=== PATIENT | male | born 1945 | race Caucasian/White ===

== ENCOUNTER 2017-05-07 15:19 | Emergency (ER) | payer MEDICARE, BC ==
[2017-05-07 15:35] VITALS: TEMP 98
--- NOTE | 2017-05-07 15:57 | ED ---
General Adult HPI - General Chief complaint: Wound/Laceration Stated complaint: knee incision opened up Time Seen by Provider: 05/07/17 15:37 Source: patient, RN notes reviewed Mode of arrival: ambulatory Limitations: no limitations - History of Present Illness Initial comments: Patient 71-year-old male who presents emergency room today with chief complaint of wanting wound recheck. He does admit that he had a cut to the right anterior aspect of the knee that happened on the April. He states it occurred when he was trying to hang knife on the wall drop down causes laceration to the anterior knee. He does admit that [place]. He states the sutures were in for 11 days and he went to his family doctor yesterday had them removed. He states he had a few Steri-Strips placed over top one of the laceration sites most proximal. He states that the distal site began bleeding on him yesterday. He does admit that he used some Steri-Strips that he had at home to pull the wound together. He states he was concerned and thought he should have it checked today. His family doctor was not open so he came here to the emergency room. Patient states is not on any blood thinner. Patient denies any recent fever, chills, shortness of breath, chest pain, back pain, abdominal pain, nausea or vomiting, numbness or tingling, dysuria or hematuria, constipation or diarrhea, headaches or visual changes, or any other complaints. - Related Data Allergies Allergy/AdvReac Type Severity Reaction Status Date / Time No Known Allergies Allergy Verified 05/07/17 15:35 Review of Systems ROS Statement: Those systems with pertinent positive or pertinent negative responses have been documented in the HPI. ROS Other: All systems not noted in ROS Statement are negative. Past Medical History Past Medical History: No Reported History History of Any Multi-Drug Resistant Organisms: None Reported Past Surgical History: Back Surgery, Joint Replacement, Orthopedic Surgery Additional Past Surgical History / Comment(s): rt hand,lt hip Past Psychological History: No Psychological Hx Reported Smoking Status: Never smoker Past Alcohol Use History: None Reported Past Drug Use History: None Reported General Exam - General Exam Comments Initial Comments: General: The patient is awake and alert, in no distress, and does not appear acutely ill. Eye: Pupils are equal, round and reactive to light, extra-ocular movements are intact. No nystagmus. There is normal conjunctiva bilaterally. No signs of icterus. Ears, nose, mouth and throat: There are moist mucous membranes and no oral lesions. Neck: The neck is supple, there is no tenderness or JVD. Cardiovascular: There is a regular rate and rhythm. No murmur, rub or gallop is appreciated. Respiratory: Lungs are clear to auscultation, respirations are non-labored, breath sounds are equal. No wheezes, stridor, rales, or rhonchi. Musculoskeletal: Normal ROM, no tenderness. Strength 5/5. Sensation intact. Pulses equal bilaterally 2+. Neurological: A&O x 3. CN II-XII intact, There are no obvious motor or sensory deficits. Coordination appears grossly intact. Speech is normal. Skin: Patient does have laceration to the anterior aspect of the right knee. There is the distal wound measured approximately 2.5-3 cm in total length that is slightly dehisced and opened up. No active bleeding currently. Psychiatric: Cooperative, appropriate mood & affect, normal judgment. Limitations: no limitations Course Vital Signs 05/07/17 15:31 Temperature 98.0 F Pulse Rate 63 Respiratory 20 Rate Blood Pressure 132/63 O2 Sat by Pulse 99 Oximetry Medical Decision Making - Medical Decision Making Patient's left knee was cleaned here in emergency room and Steri-Strips placed by nursing staff. Patient advised to use Jez wrap over top the knee when he is currently being up and moving around to help decrease his range of motion so that there is less tension on the laceration site. Is advised to the Steri- Strips in place until they fall off on their own over the next 5 days. Advised that they need to replace Steri-Strips at that time for further strength to the wound as it continues to heal. Advised to watch for any signs of infection return here to the emergency room or follow-up family doctor for any concerns. He states understanding and is in agreement. Disposition Clinical Impression: Laceration Disposition: HOME SELF-CARE Condition: Good Instructions: Laceration (ED) Additional Instructions: Please continue to use Jez wrap on up and moving around for decreased range of motion as discussed. Please replace Steri-Strips from the fall off for further strength and allowing the wound to heal. Please follow-up with family doctor in the next 2 days of symptoms have not improved. Please return to emergency room if the symptoms increase or worsen or for any other concerns. Referrals: Mago Reeder DO [Primary Care Provider] - 1-2 days Time of Disposition: 15:55
[2017-05-07 16:24] VITALS: BP 130/78; PULSE 87; RESP 18
== END 2017-05-07 16:20 | disposition home or self-care (01) ==
LOC: EC 15:19
DX: T81.33XA Disruption of traumatic injury wound repair, initial encounter (principal)
CPT/HCPCS: 99282

== ENCOUNTER 2018-01-29 13:07 | Inpatient (IN) | payer BC, MEDICARE ==
--- NOTE | 2018-01-29 13:51 | ED ---
General Adult HPI - General Chief complaint: Shortness of Breath Stated complaint: SOB Time Seen by Provider: 01/29/18 13:10 Source: patient, family, RN notes reviewed Mode of arrival: wheelchair Limitations: no limitations - History of Present Illness Initial comments: This is a 9-year-old male with past medical history significant for COPD high blood pressure and high cholesterol. Patient comes in today because he has been noting that he has been more short of breath particularly with any exertion. Patient states he cannot even walk on the driveway to get into his car. Patient denies any chest pain or palpitations. Patient did note over a month ago he started having an increase in his gastric reflux however. Patient denies any recent fever chills or significant cough. Patient denies any lightheadedness dizziness or near syncopal episode. Patient denies headache patient denies numbness weakness. Patient denies abdominal pain patient denies nausea vomiting diarrhea. Patient may concern is a shortness of breath in the increased with exertion. - Related Data Home Medications Medication Instructions Recorded Confirmed Allopurinol [Zyloprim] 300 mg PO DAILY 01/29/18 01/29/18 Ipratropium/Albuterol Sulfate 1 puff INHALATION RT-QID 01/29/18 01/29/18 [Combivent Respimat Inhaler] Metoprolol Tartrate [Lopressor] 50 mg PO DAILY 01/29/18 01/29/18 Omeprazole [Omeprazole] 20 mg PO DAILY 01/29/18 01/29/18 Simvastatin [Zocor] 20 mg PO HS 01/29/18 01/29/18 Allergies Allergy/AdvReac Type Severity Reaction Status Date / Time No Known Allergies Allergy Verified 01/29/18 14:14 Review of Systems ROS Statement: Those systems with pertinent positive or pertinent negative responses have been documented in the HPI. ROS Other: All systems not noted in ROS Statement are negative. Past Medical History Past Medical History: No Reported History, COPD, GERD/Reflux, Hyperlipidemia, Hypertension Additional Past Medical History / Comment(s): gout History of Any Multi-Drug Resistant Organisms: None Reported Past Surgical History: Back Surgery, Joint Replacement, Orthopedic Surgery Additional Past Surgical History / Comment(s): rt hand,lt hip Past Psychological History: No Psychological Hx Reported Smoking Status: Never smoker Past Alcohol Use History: None Reported Past Drug Use History: None Reported General Exam - General Exam Comments Initial Comments: GENERAL: Patient is well-developed and well-nourished. Patient is nontoxic and well- hydrated and is in mild distress. ENT: Neck is soft and supple. No significant lymphadenopathy is noted. Oropharynx is clear. Moist mucous membranes. Neck has full range of motion without eliciting any pain. EYES: The sclera were anicteric and conjunctiva were pink and moist. Extraocular movements were intact and pupils were equal round and reactive to light. Eyelids were unremarkable. PULMONARY: Unlabored respirations. Good breath sounds bilaterally. No audible rales rhonchi or wheezing was noted. CARDIOVASCULAR: There is a regular rate and rhythm without any murmurs gallops or rubs. Patient has occasional extrasystole. ABDOMEN: Soft and nontender with normal bowel sounds. No palpable organomegaly was noted. There is no palpable pulsatile mass. SKIN: Skin is clear with no lesions or rashes and otherwise unremarkable. NEUROLOGIC: Patient is alert and oriented x3. Cranial nerves II through XII are grossly intact. Motor and sensory are also intact. Normal speech, volume and content. Symmetrical smile. MUSCULOSKELETAL: Normal extremities with adequate strength and full range of motion. 1+ edema and patient states this is normal. LYMPHATICS: No significant lymphadenopathy is noted PSYCHIATRIC: Normal psychiatric evaluation. Limitations: no limitations Course Vital Signs 01/29/18 01/29/18 13:13 14:54 Temperature 97.5 F L Pulse Rate 77 67 Respiratory 18 20 Rate Blood Pressure 125/76 137/81 O2 Sat by Pulse 98 98 Oximetry Medical Decision Making - Medical Decision Making EKG shows sinus rhythm with frequent PVCs at 72 bpm. It was 188 QRSs 120 QT intervals 434 QTC is 475. Patient's EKG shows no ST segment elevation or depression. Chest x-ray shows no possible pulmonary edema. Computed tomography scan saw definite pulmonary edema. Skin the patient Lasix and nitro paste emergency pertinent. I spoke with Dr. Pat she agreed to admit the patient admitted the patient I continued Lasix Nitropaste on the floor. I consult to cardiology. I ordered an echocardiogram of the patient. - Lab Data Result diagrams: 01/29/18 13:35 01/29/18 13:35 Lab Results 01/29/18 01/29/18 01/29/18 Range/Units 13:35 13:35 13:35 WBC 6.6 (3.8-10.6) k/uL RBC 4.63 (4.30-5.90) m/uL Hgb 12.4 L (13.0-17.5) gm/dL Hct 38.2 L (39.0-53.0) % MCV 82.6 (80.0-100.0) fL MCH 26.7 (25.0-35.0) pg MCHC 32.4 (31.0-37.0) g/dL RDW 14.7 (11.5-15.5) % Plt Count 208 (150-450) k/uL Neutrophils % 69 % Lymphocytes % 22 % Monocytes % 5 % Eosinophils % 2 % Basophils % 0 % Neutrophils # 4.5 (1.3-7.7) k/uL Lymphocytes # 1.5 (1.0-4.8) k/uL Monocytes # 0.3 (0-1.0) k/uL Eosinophils # 0.1 (0-0.7) k/uL Basophils # 0.0 (0-0.2) k/uL PT (9.0-12.0) sec INR (<1.2) APTT (22.0-30.0) sec D-Dimer (<0.60) mg/L FEU Sodium 142 (137-145) mmol/L Potassium 4.4 (3.5-5.1) mmol/L Chloride 106 (98-107) mmol/L Carbon Dioxide 23 (22-30) mmol/L Anion Gap 13 mmol/L BUN 16 (9-20) mg/dL Creatinine 0.78 (0.66-1.25) mg/dL Est GFR (CKD-EPI)AfAm >90 (>60 ml/min/1.73 sqM) Est GFR (CKD-EPI)NonAf >90 (>60 ml/min/1.73 sqM) Glucose 127 H (74-99) mg/dL Calcium 9.2 (8.4-10.2) mg/dL Magnesium 1.8 (1.6-2.3) mg/dL Total Bilirubin 0.5 (0.2-1.3) mg/dL AST 22 (17-59) U/L ALT 31 (21-72) U/L Alkaline Phosphatase 74 (38-126) U/L Total Creatine Kinase 205 H (55-170) U/L CK-MB (CK-2) 3.6 H* (0.0-2.4) ng/mL CK-MB (CK-2) Rel Index 1.8 Troponin I 0.028 (0.000-0.034) ng/mL NT-Pro-B Natriuret Pep pg/mL Total Protein 6.4 (6.3-8.2) g/dL Albumin 3.8 (3.5-5.0) g/dL 01/29/18 01/29/18 Range/Units 13:35 13:35 WBC (3.8-10.6) k/uL RBC (4.30-5.90) m/uL Hgb (13.0-17.5) gm/dL Hct (39.0-53.0) % MCV (80.0-100.0) fL MCH (25.0-35.0) pg MCHC (31.0-37.0) g/dL RDW (11.5-15.5) % Plt Count (150-450) k/uL Neutrophils % % Lymphocytes % % Monocytes % % Eosinophils % % Basophils % % Neutrophils # (1.3-7.7) k/uL Lymphocytes # (1.0-4.8) k/uL Monocytes # (0-1.0) k/uL Eosinophils # (0-0.7) k/uL Basophils # (0-0.2) k/uL PT 10.9 (9.0-12.0) sec INR 1.1 (<1.2) APTT 24.2 (22.0-30.0) sec D-Dimer 0.95 H (<0.60) mg/L FEU Sodium (137-145) mmol/L Potassium (3.5-5.1) mmol/L Chloride (98-107) mmol/L Carbon Dioxide (22-30) mmol/L Anion Gap mmol/L BUN (9-20) mg/dL Creatinine (0.66-1.25) mg/dL Est GFR (CKD-EPI)AfAm (>60 ml/min/1.73 sqM) Est GFR (CKD-EPI)NonAf (>60 ml/min/1.73 sqM) Glucose (74-99) mg/dL Calcium (8.4-10.2) mg/dL Magnesium (1.6-2.3) mg/dL Total Bilirubin (0.2-1.3) mg/dL AST (17-59) U/L ALT (21-72) U/L Alkaline Phosphatase (38-126) U/L Total Creatine Kinase (55-170) U/L CK-MB (CK-2) (0.0-2.4) ng/mL CK-MB (CK-2) Rel Index Troponin I (0.000-0.034) ng/mL NT-Pro-B Natriuret Pep 4330 pg/mL Total Protein (6.3-8.2) g/dL Albumin (3.5-5.0) g/dL Disposition Clinical Impression: Acute pulmonary edema Disposition: ADMITTED IP TO THIS HOSP Referrals: Chelsi Arita DO [Primary Care Provider] - 1-2 days Time of Disposition: 16:13
--- NOTE | 2018-01-29 14:10 | XR ---
EXAMINATION TYPE: XR chest 2V DATE OF EXAM: 01/29/2018 COMPARISON: 05/18/2011 TECHNIQUE: PA and lateral views submitted. HISTORY: Shortness of breath FINDINGS: Cardiomegaly with atherosclerotic change aorta and diffuse interstitial pattern. There is a small kathia ateral pleural effusion. Subsegmental changes at both lung bases. Atherosclerotic change aorta. Hyper trophic and degenerative change of the spine. IMPRESSION: 1. Cardiomegaly with tiny bilateral effusions and diffuse interstitial pattern correlate for intersti tial venous congestion and CHF. Atypical pneumonia or interstitial pneumonitis in the differential di agnosis.
[2018-01-29 14:28] LABS: Basophils % (A) 0 %; Eosinophils # (A) 0.1 k/uL (0-0.7); Eosinophils % (A) 2 %; HCT 38.2 % (39.0-53.0); HGB 12.4 gm/dL (13.0-17.5); Lymphocytes # (A) 1.5 k/uL (1.0-4.8); Lymphocytes % (A) 22 %; MCH 26.7 pg (25.0-35.0); MCHC 32.4 g/dL (31.0-37.0); MCV 82.6 fL (80.0-100.0); Mean Platelet Volume 8.9; Monocytes # (A) 0.3 k/uL (0-1.0); Monocytes % (A) 5 %; Neutrophils # (A) 4.5 k/uL (1.3-7.7); Neutrophils % (A) 69 %; Platelet Count 208 k/uL (150-450); RBC 4.63 m/uL (4.30-5.90); RDW 14.7 % (11.5-15.5); WBC 6.6 k/uL (3.8-10.6)
[2018-01-29 14:31] LABS: ALT 31 U/L (21-72); AST 22 U/L (17-59); Albumin 3.8 g/dL (3.5-5.0); Alkaline Phosphatase 74 U/L (38-126); Anion Gap 13 mmol/L; Blood Urea Nitrogen 16 mg/dL (9-20); Calcium 9.2 mg/dL (8.4-10.2); Carbon Dioxide 23 mmol/L (22-30); Chloride 106 mmol/L (98-107); Glucose 127 mg/dL (74-99); Magnesium 1.8 mg/dL (1.6-2.3); Potassium 4.4 mmol/L (3.5-5.1); Sodium 142 mmol/L (137-145); Total Bilirubin 0.5 mg/dL (0.2-1.3); Total Protein 6.4 g/dL (6.3-8.2)
[2018-01-29 14:36] LABS: D-Dimer 0.95 mg/L FEU (<0.60); INR 1.1 (<1.2); Partial Thromboplastin Time 24.2 sec (22.0-30.0); Prothrombin Time 10.9 sec (9.0-12.0)
[2018-01-29 14:58] LABS: Troponin I 0.028 ng/mL (0.000-0.034)
[2018-01-29] MEDS ORDERED: RX INFO: IV CONTRAST WAS GIVEN 1 EACH MISC MISCELLANE PRN (15:00)
[2018-01-29 15:11] LABS: Creatine Kinase MB 3.6 ng/mL (0.0-2.4)
--- NOTE | 2018-01-29 15:44 | CT ---
EXAMINATION TYPE: CT chest angio for PE DATE OF EXAM: 01/29/2018 COMPARISON: NONE HISTORY: Shortness of breath, VINNY 5 lb weight gain in [address] DLP: 990.5 mGycm CONTRAST: CT chest with contrast and 3D reconstruction with MIP imaging is performed with IV Contrast, patient injected with 100 mL of Isovue 370. Contrast-enhanced CT of the chest was performed through the course of the pulmonary arteries with sesar g and mediastinal window settings submitted. 3D reconstruction with MIP imaging was also performed. PULMONARY ARTERIES: The pulmonary arteries and their major tributaries are patent. I do not see yojana dence for sizable filling defect to suggest pulmonary embolic process. LUNGS: Bilateral pleural effusions noted [id number] in size. There is pulmonary venous congest ion with scattered areas of groundglass opacity may reflect the changes of congestive failure. Infilt rates of other etiology not excluded. Upper lobe emphysematous changes seen. Nodularity right upper l obe is nonspecific and short-term follow-up is advised. MEDIASTINUM: Thoracic aorta is of normal caliber,however, evaluation is limited given timing of the contrast bolus. If there is concern for thoracic aortic pathology consider CESAR. Correlate clinicall y . The heart is enlarged. Small pericardial effusion. No evidence for mediastinal mass. No mediast inal lymph nodes greater than 1cm. HILAR STRUCTURES: No evidence for mass. No hilar lymph nodes greater than 1 cm. UPPER ABDOMEN: No significant abnormality is seen. IMPRESSION: 1. No evidence for Pulmonary embolism at this time. 2 correlate for congestive failure. 3. Short-term follow-up for right upper lobe and right middle pulmonary nodularity is nonspecific.
[2018-01-29] MEDS ORDERED: FUROSEMIDE 10 MG/ML 4 ML VIAL IV STA (16:10)
[2018-01-29] MEDS ORDERED: MAGNESIUM SULFATE-D5W PMX 1 GM in DEXTROSE/WATER 1 100ML.BAG IVPB ONE (16:32)
[2018-01-29] MEDS ORDERED: NALOXONE 0.4 MG/ML 1 ML VIAL IV PRN (17:29)
[2018-01-29] MEDS ORDERED: ACETAMINOPHEN TAB 325 MG TAB PO PRN (17:29)
[2018-01-29] MEDS ORDERED: ONDANSETRON 4 MG/2 ML VIAL IVP PRN (17:29)
[2018-01-29] MEDS ORDERED: MELATONIN 3 MG TABLET PO PRN (17:29)
[2018-01-29] MEDS ORDERED: DOCUSATE 100 MG CAP PO PRN (17:29)
[2018-01-29] MEDS ORDERED: IBUPROFEN 400 MG TAB PO PRN (17:29)
[2018-01-29] MEDS ORDERED: HYDROcodone/APAP 5-325MG 1 EACH TAB PO PRN (17:29)
[2018-01-29] MEDS ORDERED: ALBUTEROL NEBULIZED 2.5 MG/3 ML INHALATION PRN (17:36)
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
[2018-01-29] MEDS: NITROGLYCERIN OINT 1 INCH/GM PACKET TOPICAL SCH ×2 (18:52→19:55)
[2018-01-29] MEDS: METOPROLOL TARTRATE 50 MG TAB PO SCH (18:54)
[2018-01-29] MEDS: predniSONE 20 MG TAB PO SCH (18:54)
[2018-01-29] MEDS: FUROSEMIDE 10 MG/ML 4 ML VIAL IV SCH (19:53)
[2018-01-29] MEDS: ATORVASTATIN 10 MG TAB PO SCH (19:53)
[2018-01-29] MEDS: NYSTATIN 100,000 UNIT/ML SUSP 500,000 UNIT/5 ML CUP PO SCH (19:55)
[2018-01-29] MEDS: IPRATROPIUM-ALBUTEROL 3 ML NEB INHALATION SCH (20:11)
[2018-01-29 20:49] LABS: Creatine Kinase MB 3.3 ng/mL (0.0-2.4)
[2018-01-29 23:04] LABS: Glucose,Whole Blood 149 mg/dL (75-99)
[2018-01-30 03:18] LABS: Creatine Kinase MB 2.5 ng/mL (0.0-2.4)
[2018-01-30 04:08] LABS: Hemoglobin A1C 5.9 % (4.0-6.0)
[2018-01-30 06:08] LABS: Glucose,Whole Blood 140 mg/dL (75-99)
[2018-01-30 06:58] LABS: Basophils % (A) 0 %; Eosinophils % (A) 0 %; HCT 41.8 % (39.0-53.0); HGB 13.1 gm/dL (13.0-17.5); Hypochromasia Slight; Lymphocytes # (A) 0.9 k/uL (1.0-4.8); Lymphocytes % (A) 13 %; MCH 26.2 pg (25.0-35.0); MCHC 31.3 g/dL (31.0-37.0); MCV 83.7 fL (80.0-100.0); Mean Platelet Volume 8.6; Monocytes # (A) 0.3 k/uL (0-1.0); Monocytes % (A) 4 %; Neutrophils # (A) 5.6 k/uL (1.3-7.7); Neutrophils % (A) 82 %; Platelet Count 220 k/uL (150-450); RBC 4.99 m/uL (4.30-5.90); RDW 14.6 % (11.5-15.5); WBC 6.9 k/uL (3.8-10.6)
[2018-01-30 07:08] LABS: Anion Gap 14 mmol/L; Blood Urea Nitrogen 18 mg/dL (9-20); Calcium 9.3 mg/dL (8.4-10.2); Carbon Dioxide 29 mmol/L (22-30); Chloride 102 mmol/L (98-107); Glucose 137 mg/dL (74-99); Phosphorus 4.3 mg/dL (2.5-4.5); Potassium 4.9 mmol/L (3.5-5.1); Sodium 145 mmol/L (137-145)
[2018-01-30] MEDS: ENOXAPARIN 40 MG/0.4 ML SYRINGE SQ SCH (08:28)
[2018-01-30] MEDS: ALLOPURINOL 300 MG TAB PO SCH (08:28)
[2018-01-30] MEDS: PANTOPRAZOLE 40 MG TABLET PO SCH (08:28)
[2018-01-30] MEDS: predniSONE 20 MG TAB PO SCH (08:29)
[2018-01-30] MEDS: FUROSEMIDE 10 MG/ML 4 ML VIAL IV SCH ×2 (08:29→19:42)
[2018-01-30] MEDS: NITROGLYCERIN OINT 1 INCH/GM PACKET TOPICAL SCH ×4 (08:29→19:42)
[2018-01-30] MEDS: METOPROLOL TARTRATE 50 MG TAB PO SCH (08:29)
[2018-01-30] MEDS: NYSTATIN 100,000 UNIT/ML SUSP 500,000 UNIT/5 ML CUP PO SCH ×5 (08:30→19:42)
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
[2018-01-30] MEDS: IPRATROPIUM-ALBUTEROL 3 ML NEB INHALATION SCH ×4 (09:27→21:30)
[2018-01-30 11:23] LABS: Glucose,Whole Blood 196 mg/dL (75-99)
--- NOTE | 2018-01-30 11:42 | P.PN ---
Subjective Progress Note Date: 01/30/18 Principal diagnosis: shortness of breath Patient is a 72-year-old male with a past medical history of hypertension, GERD, COPD, dyslipidemia, and gout who presented to the emergency department with complaints of shortness of breath. In the emergency department his vital signs were within normal limits. Initial laboratory analysis was unremarkable other than a positive d-dimer and slightly elevated CK-MB. His troponin was negative. He underwent a chest x-ray which showed signs of congestive heart failure. He underwent a CT chest which showed again signs of heart failure without any pulmonary emboli. It did show increased nodularity in the right upper lobe. He had a 8 beat run of nonsustained V. tach in the ER. He was given a dose of Lasix and some IV magnesium due to a magnesium level of 1.8. He was admitted to the selective care unit for further monitoring. Cardio has sen in patient and recommends outpatient eval for severe CAD and awaiting echo. Patient seen and examined at bedside. He reports that shortness of breath has greatly improved, he is no longer having left lower extremity pain. He reports decreased wheezing. He has urinated quite frequently throughout the night. He has no other complaints currently. We discussed different possibilities for etiology of his congestive heart failure. He states that Dr. Arita checked his blood sugar levels recently and was concerned about development of prediabetes and he has had a significant 14 pound weight loss. We discussed his hemoglobin A1c is still 5.9 and I have suggested repeat screening as an outpatient and dietary modifications. He also has a known history of a right lung nodule which /check approximately 15 years ago. We discussed that he had a nodular appearance to his right upper lobe but no definitive nodule. I let him know inpatient for repeat CT of his chest done in approximately 3 months. Him and his understand the importance of follow-up. Objective - Vital Signs Vital signs: Vital Signs Temp 96.6 F L 01/30/18 10:35 Pulse 67 01/30/18 10:39 Resp 18 01/30/18 10:39 BP 134/79 01/30/18 10:35 Pulse Ox 98 01/30/18 10:35 Intake & Output 01/29/18 01/30/18 01/30/18 18:59 06:59 18:59 Intake Total 180 594 Output Total 0 2075 600 Balance 180 -2074 -6 Weight 128.367 kg 121.5 kg Intake: Oral 180 594 Output: Urine 0 2075 600 Other: Voiding Method Urinal Urinal # Voids 2 - Exam General: non toxic, no distress, appears at stated age Derm: warm, dry Head: atraumatic, normocephalic, symmetric Eyes: EOMI, no lid lag, anicteric sclera Mouth: no lip lesion, mucus membranes moist Cardiovascular: S1S2 reg, no murmur, positive posterior tibial pulse bilateral, Lungs: Decreased breath sounds bilaterally with bilateral expiratory wheezes, no accessory muscle use Abdominal: soft, nontender to palpation, no guarding, no appreciable organomegaly Ext: no gross muscle atrophy, trace edema, no contractures Neuro: CN II-XI grossly intact, no focal neuro deficits Psych: Alert, oriented, appropriate affect - Labs CBC & Chem 7: 01/30/18 06:22 01/30/18 06:22 Labs: Abnormal Lab Results - Last 24 Hours (Table) 01/29/18 01/29/18 01/29/18 Range/Units 13:35 13:35 13:35 Hgb 12.4 L (13.0-17.5) gm/dL Hct 38.2 L (39.0-53.0) % Lymphocytes # (1.0-4.8) k/uL D-Dimer (<0.60) mg/L FEU Glucose 127 H (74-99) mg/dL POC Glucose (mg/dL) (75-99) mg/dL Total Creatine Kinase 205 H (55-170) U/L CK-MB (CK-2) 3.6 H* (0.0-2.4) ng/mL 01/29/18 01/29/18 01/29/18 Range/Units 13:35 19:23 22:53 Hgb (13.0-17.5) gm/dL Hct (39.0-53.0) % Lymphocytes # (1.0-4.8) k/uL D-Dimer 0.95 H (<0.60) mg/L FEU Glucose (74-99) mg/dL POC Glucose (mg/dL) 149 H (75-99) mg/dL Total Creatine Kinase 171 H (55-170) U/L CK-MB (CK-2) 3.3 H* (0.0-2.4) ng/mL 01/30/18 01/30/18 01/30/18 Range/Units 01:40 06:07 06:22 Hgb (13.0-17.5) gm/dL Hct (39.0-53.0) % Lymphocytes # 0.9 L (1.0-4.8) k/uL D-Dimer (<0.60) mg/L FEU Glucose (74-99) mg/dL POC Glucose (mg/dL) 140 H (75-99) mg/dL Total Creatine Kinase (55-170) U/L CK-MB (CK-2) 2.5 H* (0.0-2.4) ng/mL 01/30/18 01/30/18 Range/Units 06:22 11:22 Hgb (13.0-17.5) gm/dL Hct (39.0-53.0) % Lymphocytes # (1.0-4.8) k/uL D-Dimer (<0.60) mg/L FEU Glucose 137 H (74-99) mg/dL POC Glucose (mg/dL) 196 H (75-99) mg/dL Total Creatine Kinase (55-170) U/L CK-MB (CK-2) (0.0-2.4) ng/mL Assessment and Plan Assessment: Probable congestive heart failure -Lasix -Strict I's and O's, daily weights -Echocardiogram pending -Cardiology recs appreciated -Continue with Lopressor -Likely will need PIPPA inhibitor restarted -TSH normal Nonsustained V. tach X 1 -Telemetry COPD with probable acute exacerbation -Prednisone oral 5 days -Scheduled DuoNeb's, has RX for dulera at home await insurnance approval. -As needed albuterol Right upper lobe nodularity -repeat CT in 3 months Hypertension, controlled -Continue with Lopressor -Follow blood pressures Dyslipidemia -Statin -Lipid profile in AM Orbit obesity -Outpatient structured weight loss GERD -PPI DVT prophylaxis: Lovenox Discussed with: Patient, Anticipated discharge: [address]: Home A total of 25 minutes was spent on the care of this complex patient more than 50 % of the time was spent in counseling and care coordination.
[2018-01-30 14:25] VITALS: BMI 35.3
[2018-01-30 16:49] LABS: Glucose,Whole Blood 168 mg/dL (75-99)
--- NOTE | 2018-01-30 19:11 | ECHOF ---
Referral Reason:chf MEASUREMENTS -------- HEIGHT: 185.4 cm WEIGHT: 121.1 kg BP: 126/72 RVIDd: 4.3 cm (< 3.3) IVSd: 1.5 cm (0.6 - 1.1) LVIDd: 6.6 cm (3.9 - 5.3) LVPWd: 1.5 cm (0.6 - 1.1) IVSs: 1.6 cm LVIDs: 5.9 cm LVPWs: 1.7 cm LAESV Index (A-L): 41.15 ml/m Ao Diam: 3.9 cm (2.0 - 3.7) AV Cusp: 2.2 cm (1.5 - 2.6) LA Diam: 5.4 cm (2.7 - 3.8) EPSS: 1.8 cm MV E Thee: 1.12 m/s MV DecT: 182 ms MV A Thee: 0.00 m/s MV E/A Ratio: 511.74 AR PHT: 548 ms RAP: 15.00 mmHg RVSP: 48.25 mmHg MV EF SLOPE: 114.05 mm/s (70 - 150) MV EXCURSION: 1.77 cm (> 18.000) FINDINGS -------- Undetermined rhythm. This was a technically good study. The left ventricle is moderately dilated. There is moderate concentric left ventricular hypertrophy . There is severe global hypokinesis of LV . Overall left ventricular systolic function is severe ly impaired with, an EF between 20 - 25 %. The right ventricle is severely enlarged. LA is severely dilated >40 ml/m2 RA appears enlarged. 3ml of Lumason was utilized for enhancement of images. Aortic valve is trileaflet and is mildly thickened. There is moderate aortic regurgitation. There is no evidence of aortic stenosis. The mitral valve leaflets are mildly thickened. Moderate mitral regurgitation is present. Moderate tricuspid regurgitation present. There is mild pulmonary hypertension. The right ventric ular systolic pressure, as measured by Doppler, is 48.25mmHg. Trace/mild (physiologic) pulmonic regurgitation. The aortic root size is normal. The inferior vena cava is dilated with poor inspiratory collapse which is consistent with estimated r ight atrial pressure of 20 mmHg. There is a small pericardial effusion located near the left ventricle. CONCLUSIONS -------- 1. Undetermined rhythm. 2. This was a technically good study. 3. The left ventricle is moderately dilated. 4. There is moderate concentric left ventricular hypertrophy. 5. There is severe global hypokinesis of LV . 6. Overall left ventricular systolic function is severely impaired with, an EF between 20 - 25 %. 7. The right ventricle is severely enlarged. 8. LA is severely dilated >40 ml/m2 9. RA appears enlarged. 10. 3ml of Lumason was utilized for enhancement of images. 11. Aortic valve is trileaflet and is mildly thickened. 12. There is moderate aortic regurgitation. 13. The mitral valve leaflets are mildly thickened. 14. Moderate mitral regurgitation is present. 15. Moderate tricuspid regurgitation present. 16. There is mild pulmonary hypertension. 17. The right ventricular systolic pressure, as measured by Doppler, is 48.25mmHg. 18. Trace/mild (physiologic) pulmonic regurgitation. 19. The aortic root size is normal. 20. The inferior vena cava is dilated with poor inspiratory collapse which is consistent with estimat ed right atrial pressure of 20 mmHg. YOUTH CAREER SPECIALIST: Ha Hurt RDCS
[2018-01-30] MEDS: ATORVASTATIN 10 MG TAB PO SCH (19:42)
[2018-01-30 21:03] LABS: Glucose,Whole Blood 161 mg/dL (75-99)
[2018-01-31 05:48] LABS: Glucose,Whole Blood 129 mg/dL (75-99)
[2018-01-31] MEDS: PANTOPRAZOLE 40 MG TABLET PO SCH (06:16)
[2018-01-31 06:45] LABS: Anion Gap 11 mmol/L; Blood Urea Nitrogen 24 mg/dL (9-20); Calcium 9.3 mg/dL (8.4-10.2); Carbon Dioxide 30 mmol/L (22-30); Chloride 102 mmol/L (98-107); Cholesterol 126 mg/dL (<200); Glucose 115 mg/dL (74-99); HDL Cholesterol 40 mg/dL (40-60); LDL Cholesterol,Calculated 59 mg/dL (0-99); Magnesium 1.9 mg/dL (1.6-2.3); Potassium 3.7 mmol/L (3.5-5.1); Sodium 143 mmol/L (137-145); Triglycerides 135 mg/dL (<150)
[2018-01-31] MEDS: IPRATROPIUM-ALBUTEROL 3 ML NEB INHALATION SCH ×4 (07:43→19:43)
[2018-01-31] MEDS ORDERED: FUROSEMIDE 40 MG TAB PO SCH (09:00)
[2018-01-31] MEDS: ALLOPURINOL 300 MG TAB PO SCH (09:04)
[2018-01-31] MEDS: NITROGLYCERIN OINT 1 INCH/GM PACKET TOPICAL SCH ×4 (09:04→20:04)
[2018-01-31] MEDS: NYSTATIN 100,000 UNIT/ML SUSP 500,000 UNIT/5 ML CUP PO SCH ×4 (09:04→20:12)
[2018-01-31] MEDS: METOPROLOL TARTRATE 50 MG TAB PO SCH (09:04)
[2018-01-31] MEDS: ASPIRIN 81 MG PO SCH (09:04)
[2018-01-31] MEDS: predniSONE 20 MG TAB PO SCH (09:05)
--- NOTE | 2018-01-31 10:06 | P.PN ---
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 The patient shortness of breath started about one week ago. He describes mainly exertional dyspnea but but for the last few days he has been experiencing orthopnea and he has been using 2 pillow was. No paroxysmal short of dyspnea. He did not have any symptoms of chest pain or chest discomfort. He did develop bilateral lower extremities edema. The patient initially was seen and evaluated by his primary care physician who started the patient on some inhaler without any significant improvement. Beside that the patient was receiving blood pressure medication it seems to be was hydrochlorothiazide and that was stopped recently because he was urinating significantly according to him. The patient reports no history of coronary artery disease or congestive heart failure or any cardiac arrhythmia. He does have hypertension and dyslipidemia and possibly COPD. The chest x-ray showed findings consistent with CHF. The EKG showed sinus rhythm with frequent PVCs and possible old anteroseptal infarct. Definitely the possibility of severe underlying coronary artery disease needs to be ruled out down the line and probably as an outpatient. The troponin came in to be within normal limits but the CK-MB came in to be slightly elevated. The BNP came in to be severe lead elevated. The patient underwent an echocardiogram and that revealed impaired LV function with an ejection fraction of 20%. Heart catheterization is recommended to rule out severe CAD Objective - Vital Signs Vital signs: Vital Signs Temp 97.8 F 01/31/18 09:00 Pulse 77 01/31/18 09:00 Resp 20 01/31/18 09:00 BP 136/85 01/31/18 09:00 Pulse Ox 98 01/31/18 09:00 Intake & Output 01/30/18 01/31/18 01/31/18 18:59 06:59 18:59 Intake Total 1610 300 200 Output Total 600 1325 200 Balance 1010 -1025 0 Weight 121.5 kg 120.5 kg Intake: Oral 1610 300 200 Output: Urine 600 1325 200 Other: Voiding Method Urinal Urinal # Voids 2 1 - Constitutional General appearance: Present: no acute distress - Respiratory Respiratory: bilateral: CTA - Cardiovascular Rhythm: regular Heart sounds: normal: S1, S2 - Labs CBC & Chem 7: 01/30/18 06:22 01/31/18 06:07 Labs: Abnormal Lab Results - Last 24 Hours (Table) 01/30/18 01/30/18 01/30/18 Range/Units 11:22 16:47 21:02 BUN (9-20) mg/dL Glucose (74-99) mg/dL POC Glucose (mg/dL) 196 H 168 H 161 H (75-99) mg/dL 01/31/18 01/31/18 Range/Units 05:47 06:07 BUN 24 H (9-20) mg/dL Glucose 115 H (74-99) mg/dL POC Glucose (mg/dL) 129 H (75-99) mg/dL Assessment and Plan Assessment: Assessment #1 congestive heart failure exacerbation of unknown etiology at this point. Echocardiogram is in process to be done #2 systemic hypertension #3 dyslipidemia # 4 abnormal EKG showing possibly severe underlying coronary artery disease with possible old anteroseptal infarct. Plan #1 add Aldactone to the current medical treatment #2 continue the metoprolol as well as lisinopril #3 I recommended proceeding with a heart catheterization. I discussed with him the option between doing the heart catheterization as an inpatient or outpatient and he would rather proceed with heart catheterization as inpatient. Thank you for allowing us participate in his care and we will continue following up with him
[2018-01-31] MEDS ORDERED: ATORVASTATIN 80 MG TAB PO STA (10:53)
[2018-01-31] MEDS ORDERED: ASPIRIN 81 MG PO STA (10:53)
[2018-01-31] MEDS ORDERED: NITROGLYCERIN SL TABS 0.4 MG TAB SUBLINGUAL PRN (10:53)
[2018-01-31] MEDS ORDERED: ALPRAZolam 0.5 MG TAB PO PRN (10:53)
[2018-01-31] MEDS ORDERED: ALPRAZolam 0.25 MG TAB PO PRN (10:53)
[2018-01-31] MEDS ORDERED: SODIUM CHLORIDE 0.9% 1,000 ML in EMPTY BAG 1 BAG IV ONE (10:53)
[2018-01-31] MEDS: ENOXAPARIN 40 MG/0.4 ML SYRINGE SQ SCH (11:11)
--- NOTE | 2018-01-31 11:24 | P.PN ---
Subjective Progress Note Date: 01/31/18 Principal diagnosis: shortness of breath Patient is a 72-year-old male with a past medical history of hypertension, GERD, COPD, dyslipidemia, and gout who presented to the emergency department with complaints of shortness of breath. In the emergency department his vital signs were within normal limits. Initial laboratory analysis was unremarkable other than a positive d-dimer and slightly elevated CK-MB. His troponin was negative. He underwent a chest x-ray which showed signs of congestive heart failure. He underwent a CT chest which showed again signs of heart failure without any pulmonary emboli. It did show increased nodularity in the right upper lobe. He had a 8 beat run of nonsustained V. tach in the ER. He was given a dose of Lasix and some IV magnesium due to a magnesium level of 1.8. He was admitted to the selective care unit for further monitoring. Patient was seen by cardiology. His echo showed EF of 20-25%. He had no prior known history of cardiomyopathy. He has a known history of RUL nodule and was supposed to have this followed several years ago, he is aware that he needs a repeat CT of the chest within the next 3 months. We also discussed that his A1C 5.9 this is being actively followed by Dr. Arita. Patient seen and examined at bedside. His breathing is much better than it has been in months. His edema completely resolved. He is able to up and ambulating the hallways and could not believe that he didn't have to rest to stop and catch his breath. No chest pain. No lightheadedness. We discussed the findings of his low ejection fraction and that he will likely need further evaluation for coronary artery disease. We also discussed that this may be done as an inpatient or outpatient depending Dr. Reid's recommendations. Objective - Vital Signs Vital signs: Vital Signs Temp 97.8 F 01/31/18 09:00 Pulse 77 01/31/18 09:00 Resp 20 01/31/18 09:00 BP 136/85 01/31/18 09:00 Pulse Ox 98 01/31/18 09:00 Intake & Output 01/30/18 01/31/18 01/31/18 18:59 06:59 18:59 Intake Total 1610 300 200 Output Total 600 1325 200 Balance 1010 -1025 0 Weight 121.5 kg 120.5 kg Intake: Oral 1610 300 200 Output: Urine 600 1325 200 Other: Voiding Method Urinal Urinal Toilet Urinal # Voids 2 1 - Exam General: non toxic, no distress, appears at stated age Derm: warm, dry Head: atraumatic, normocephalic, symmetric Eyes: EOMI, no lid lag, anicteric sclera Mouth: no lip lesion, mucus membranes moist Cardiovascular: S1S2 reg, no murmur, positive posterior tibial pulse bilateral, Lungs: Decreased breath sounds bilaterally with bilateral expiratory wheezes, no accessory muscle use Abdominal: soft, nontender to palpation, no guarding, no appreciable organomegaly Ext: no gross muscle atrophy, trace edema, no contractures Neuro: CN II-XI grossly intact, no focal neuro deficits Psych: Alert, oriented, appropriate affect - Labs CBC & Chem 7: 01/30/18 06:22 01/31/18 06:07 Labs: Abnormal Lab Results - Last 24 Hours (Table) 01/30/18 01/30/18 01/30/18 Range/Units 11:22 16:47 21:02 BUN (9-20) mg/dL Glucose (74-99) mg/dL POC Glucose (mg/dL) 196 H 168 H 161 H (75-99) mg/dL 01/31/18 01/31/18 Range/Units 05:47 06:07 BUN 24 H (9-20) mg/dL Glucose 115 H (74-99) mg/dL POC Glucose (mg/dL) 129 H (75-99) mg/dL Assessment and Plan Assessment: Acute systolic congestive heart failure, ejection fraction 20-25% -Lasix changed to by mouth with increasing BUN and rapid improvement in fluid status -Strict I's and O's, daily weights -Cardiology recs appreciated -Continue with Lopressor -Add lisinopril -TSH normal - Will need evaluation for coronary artery disease- inpatient versus outpatient Nonsustained V. tach X 1 -Telemetry COPD with probable acute exacerbation -Prednisone oral 3/5 days -Scheduled DuoNeb's, has RX for dulera at home await insurnance approval. -As needed albuterol Right upper lobe nodularity -repeat CT in 3 months Hypertension, controlled -Continue with Lopressor, lisinopril added -Follow blood pressures Dyslipidemia - Lipid profile is normal with an LDL of 59. Likely will not need statin therapy on discharge pending results of cardiac catheterization. Orbit obesity -Outpatient structured weight loss GERD -PPI Discussed with Dr. Reid. We will try to accommodate patient to have cardiac catheterization prior to discharge. DVT prophylaxis: Lovenox Discussed with: Patient, Anticipated discharge: [address]: Home A total of 25 minutes was spent on the care of this complex patient more than 50 % of the time was spent in counseling and care coordination.
[2018-01-31] MEDS ORDERED: LISINOPRIL 10 MG TAB PO SCH (12:00)
[2018-01-31 12:03] LABS: Glucose,Whole Blood 116 mg/dL (75-99)
[2018-01-31] MEDS ORDERED: HEPARIN SODIUM 1,000 UN/ML (10ML VL) ONE (12:51)
[2018-01-31] MEDS ORDERED: VERAPAMIL 2.5 MG/ML 2 ML AMP ONE (12:51)
[2018-01-31] MEDS ORDERED: MIDAZOLAM 2 MG/2 ML VIAL ONE (12:52)
[2018-01-31] MEDS ORDERED: MIDAZOLAM 2 MG/2 ML VIAL IV ONE (12:55)
[2018-01-31] MEDS ORDERED: LIDOCAINE 2% INJ 20 MG/ML SQ ONE (12:56)
[2018-01-31] MEDS: VERAPAMIL SYRINGE (5 MG/10 ML) INTRAARTER ONE ×2 (12:58→13:12)
[2018-01-31] MEDS ORDERED: IV FLUID CONTINUATION 900 ML IV ONE (12:58)
[2018-01-31] MEDS ORDERED: HEPARIN SODIUM 1,000 UN/ML (10ML VL) IV ONE (13:00)
[2018-01-31] MEDS ORDERED: IOPAMIDOL-370 125ML BTL INJ ONE (13:12)
[2018-01-31] MEDS ORDERED: RX INFO: IV CONTRAST WAS GIVEN 1 EACH MISC MISCELLANE PRN ×2 (13:21→13:23)
[2018-01-31] MEDS ORDERED: SODIUM CHLORIDE 0.9% 1,000 ML IV SCH (13:30)
--- NOTE | 2018-01-31 16:08 | CC ---
CARDIAC CATHETERIZATION REPORT DATE OF SERVICE: 01/31/2018 PERFORMING PHYSICIAN: Bertt Reid MD, debrander. PROCEDURES PERFORMED: 1. Selective right and left coronary angiogram. 2. Left heart catheterization. INDICATION: This is a pleasant 72-year-old male patient with a past medical history significant for hypertension and dyslipidemia. He was admitted to the hospital with congestive heart failure exacerbation. He underwent an echocardiogram and that revealed severely impaired LV function with an ejection fraction of 20%. In view of that, heart catheterization was recommended. APPROACH: Right radial artery. COMPLICATIONS: None. LEVEL OF SEDATION: Moderate with sedation length of 16 minutes. PROCEDURE DESCRIPTION: After obtaining informed consent, the patient was brought to the cardiac sugar laboratory assistant. The right radial artery was cannulated using micropuncture technique. The micropuncture wire passed easily. Then I placed a 6-Mosotho sheath in the right radial artery. After that I gave the patient 2 mg of verapamil IA and 10,000 units of heparin IV. After that I did selective right and left coronary angiogram using JR4 and JL3.5 catheters. Left heart catheterization was performed using a 6-Mosotho pigtail catheter. The procedure was completed without any complication. SELECTIVE CORONARY ANGIOGRAM: 1. The right coronary artery is a large-caliber vessel and it is a dominant vessel. The proximal RCA is angiographically normal. The mid RCA has disease in the range of 30% to 40%. The RCA distally appeared to be angiographically normal and bifurcates into PDA and PLV branches; both are angiographically normal. 2. The left main is angiographically normal. It bifurcates into the left circumflex and left anterior descending artery. 3. The left circumflex is a large-caliber vessel. It is a nondominant vessel. The proximal circumflex appeared to be angiographically normal and gives rise to a first OM branch and second OM branch, both of which are angiographically normal. The mid left circumflex is normal as well and gives rise to third and fourth OM branches; both are angiographically normal. The circumflex continues after that as a small-caliber vessel in the AV groove. 4. The LAD. The proximal LAD appeared to be angiographically normal and gives rise to a large diagonal branch which seems to be angiographically normal. The mid LAD has a lesion in the range of 50%. The LAD distally appeared to be angiographically normal. HEMODYNAMICS: The left ventricular end-diastolic pressure was 20 mmHg, and no significant gradient was identified across the aortic valve. CONCLUSION: 1. Severe cardiomyopathy was identified by echocardiogram. 2. Intermediate disease involving the mid LAD with a focal lesion that appeared to be in the range of 50% to 60%. 3. Mild to moderate disease involving the mid RCA. POST-PROCEDURE MANAGEMENT: Maximize medical treatment and follow up with the patient. TIMOTHY / LYNDSAY: [id number] /
[2018-01-31 16:59] LABS: Glucose,Whole Blood 250 mg/dL (75-99)
[2018-01-31] MEDS: ATORVASTATIN 10 MG TAB PO SCH (20:11)
[2018-01-31] MEDS: FUROSEMIDE 10 MG/ML 4 ML VIAL IV SCH (20:12)
[2018-01-31 20:55] LABS: Glucose,Whole Blood 172 mg/dL (75-99)
[2018-02-01 05:52] LABS: Glucose,Whole Blood 104 mg/dL (75-99)
[2018-02-01] MEDS: PANTOPRAZOLE 40 MG TABLET PO SCH (06:06)
[2018-02-01 06:12] LABS: Anion Gap 12 mmol/L; Blood Urea Nitrogen 23 mg/dL (9-20); Calcium 8.8 mg/dL (8.4-10.2); Carbon Dioxide 30 mmol/L (22-30); Chloride 101 mmol/L (98-107); Glucose 104 mg/dL (74-99); Potassium 4.1 mmol/L (3.5-5.1); Sodium 143 mmol/L (137-145)
[2018-02-01] MEDS: IPRATROPIUM-ALBUTEROL 3 ML NEB INHALATION SCH (07:44)
[2018-02-01 08:18] VITALS: BP 122/58; PULSE 64; RESP 18; TEMP 97.7
[2018-02-01] MEDS: ASPIRIN 81 MG PO SCH (08:23)
[2018-02-01] MEDS: predniSONE 20 MG TAB PO SCH (08:23)
[2018-02-01] MEDS: NYSTATIN 100,000 UNIT/ML SUSP 500,000 UNIT/5 ML CUP PO SCH (08:23)
[2018-02-01] MEDS: ENOXAPARIN 40 MG/0.4 ML SYRINGE SQ SCH (08:23)
[2018-02-01] MEDS: ALLOPURINOL 300 MG TAB PO SCH (08:24)
[2018-02-01] MEDS: FUROSEMIDE 10 MG/ML 4 ML VIAL IV SCH (08:24)
[2018-02-01] MEDS: METOPROLOL TARTRATE 50 MG TAB PO SCH (08:24)
[2018-02-01] MEDS ORDERED: SPIRONOLACTONE 25 MG TAB PO SCH (09:00)
--- NOTE | 2018-02-01 09:11 | P.PN ---
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 The patient shortness of breath started about one week ago. He describes mainly exertional dyspnea but but for the last few days he has been experiencing orthopnea and he has been using 2 pillow was. No paroxysmal short of dyspnea. He did not have any symptoms of chest pain or chest discomfort. He did develop bilateral lower extremities edema. The patient initially was seen and evaluated by his primary care physician who started the patient on some inhaler without any significant improvement. Beside that the patient was receiving blood pressure medication it seems to be was hydrochlorothiazide and that was stopped recently because he was urinating significantly according to him. The patient reports no history of coronary artery disease or congestive heart failure or any cardiac arrhythmia. He does have hypertension and dyslipidemia and possibly COPD. The chest x-ray showed findings consistent with CHF. The EKG showed sinus rhythm with frequent PVCs and possible old anteroseptal infarct. Definitely the possibility of severe underlying coronary artery disease needs to be ruled out down the line and probably as an outpatient. The troponin came in to be within normal limits but the CK-MB came in to be slightly elevated. The BNP came in to be severe lead elevated. The patient underwent an echocardiogram and that revealed impaired LV function with an ejection fraction of 20%. Subsequently he underwent a heart catheterization and that revealed intermediate disease in the mid LAD I'll follow-up with him today, he is feeling better. He denies having any chest pain or shortness of breath. He still have mild bilateral lower extremities edema.I am going to switch him from Lasix IV to Lasix by mouth. Continue the current dose of metoprolol, lisinopril, and Aldactone. The patient can be discharged home. Objective - Vital Signs Vital signs: Vital Signs Temp 97.7 F 02/01/18 08:00 Pulse 64 02/01/18 08:00 Resp 18 02/01/18 08:00 BP 122/58 02/01/18 08:00 Pulse Ox 96 02/01/18 08:00 Intake & Output 01/31/18 02/01/18 02/01/18 18:59 06:59 18:59 Intake Total 1370 Output Total 770 2000 200 Balance 600 -2000 -200 Weight 121.3 kg Intake: IV 690 Sodium Chloride 0.9% 1, 300 000 ml @ 75 mls/hr IV . [id number] [facility] Rx#:[id number] Sodium Chloride 0.9% 1, 240 000 ml In Empty Bag 1 bag @ 1 ML/KG/HR 120.5 mls/ hr IV .[id number] ONE Rx#: [id number] Oral 680 Output: Urine 770 2000 200 Other: Voiding Method Urinal Toilet Toilet Urinal Urinal # Voids 2 1 # Bowel Movements 0 - Constitutional General appearance: Present: no acute distress - Respiratory Respiratory: bilateral: CTA - Cardiovascular Rhythm: regular Heart sounds: normal: S1, S2 - Labs CBC & Chem 7: 01/30/18 06:22 02/01/18 05:42 Labs: Abnormal Lab Results - Last 24 Hours (Table) 01/31/18 01/31/18 01/31/18 Range/Units 11:58 16:57 20:53 BUN (9-20) mg/dL Glucose (74-99) mg/dL POC Glucose (mg/dL) 116 H 250 H 172 H (75-99) mg/dL 02/01/18 02/01/18 Range/Units 05:42 05:51 BUN 23 H (9-20) mg/dL Glucose 104 H (74-99) mg/dL POC Glucose (mg/dL) 104 H (75-99) mg/dL Assessment and Plan Assessment: Assessment #1 congestive heart failure exacerbation of unknown etiology at this point. Echocardiogram is in process to be done #2 systemic hypertension #3 dyslipidemia # 4 abnormal EKG showing possibly severe underlying coronary artery disease with possible old anteroseptal infarct. Plan #1 switch the patient from Lasix IV to Lasix by mouth #2 continue the current medical regimen #3 the patient can be discharged home today.
--- NOTE | 2018-02-01 09:46 | P.DS ---
Providers Date of admission: 01/29/18 16:17 Expected date of discharge: 02/01/18 Attending physician: Erinn Pat DO Consults: 01/29/18 16:17 Consult Physician Routine Consulting Provider: [facility] Consult Reason/Comments: Acute pulmonary edema Do you want consulting provider notified?: Yes Primary care physician: Chelsi Arita - Discharge Diagnosis(es) (1) Acute systolic CHF (congestive heart failure) Current Visit: Yes Status: Acute (2) Non-sustained ventricular tachycardia Current Visit: Yes Status: Acute (3) COPD with acute exacerbation Current Visit: Yes Status: Acute (4) HTN (hypertension) Current Visit: Yes Status: Acute (5) HLD (hyperlipidemia) Current Visit: Yes Status: Acute (6) Morbid obesity Current Visit: Yes Status: Acute (7) GERD (gastroesophageal reflux disease) Current Visit: Yes Status: Acute Hospital Course: Patient is a 72-year-old male with a past medical history of hypertension, GERD, COPD, dyslipidemia, and gout who presented to the emergency department with complaints of shortness of breath. In the emergency department his vital signs were within normal limits. Initial laboratory analysis was unremarkable other than a positive d-dimer and slightly elevated CK-MB. His troponin was negative. He underwent a chest x-ray which showed signs of congestive heart failure. He underwent a CT chest which showed again signs of heart failure without any pulmonary emboli. It did show increased nodularity in the right upper lobe. He had a 8 beat run of nonsustained V. tach in the ER. He was given a dose of Lasix and some IV magnesium due to a magnesium level of 1.8. He was admitted to the selective care unit for further monitoring. He was also diagnosed with acute exacerbation of COPD and was started on nebulized breathing treatments and prednisone. Patient was seen by cardiology. His echo showed EF of 20-25%. He had no prior known history of cardiomyopathy. He has a known history of RUL nodule and was supposed to have this followed several years ago, he is aware that he needs a repeat CT of the chest within the next 3 months. We also discussed that his A1C 5.9 this is being actively followed by Dr. Arita. He had rapid improvement in his shortness of breath with lasix and aldactone. His telemetry remained unremarkable. He underwent cardiac cath on 01/31 which showed intermediate CAD but no significant lesions needing stenting. He continued to do well and was determined stable for discharge home. He will follow-up with Dr. Arita in 1-2 days [address] then with Dr. Multani in 3 weeks. His medication regiment was optiomized at discharge. His cholesterol was well controlled on simvastatin so this was continued. His metoprolol was continued. He was started on lasix, aldactone, and lisinopril. I have asked him to get a renal profile with Dr. Arita next week. Patient seen and examined at bedside. No chest pain. No shortness of breath. No nausea. No vomiting. Feeling wonderful. He did have some increased acid reflux this morning likely secondary to prednisone he had been receiving for COPD. He is no longer wheezing will be discharged home off prednisone. We did discuss using an empty 2 L bottle to monitor how much fluid he is drinking a day. Vital signs reviewed and stable. General: non toxic, no distress, appears at stated age Derm: warm, dry Head: atraumatic, normocephalic, symmetric Eyes: EOMI, no lid lag, anicteric sclera Mouth: no lip lesion, mucus membranes moist Cardiovascular: S1S2 reg, no murmur, positive posterior tibial pulse bilateral, Lungs: CTA bilateral, no rhonchi, no rales , no accessory muscle use Abdominal: soft, nontender to palpation, no guarding, no appreciable organomegaly Ext: no gross muscle atrophy, trace edema, no contractures Neuro: CN II-XI grossly intact, no focal neuro deficits Psych: Alert, oriented, appropriate affect A total of 35 minutes of time were spent preparing this complex discharge summary . Plan - Discharge Summary Discharge Rx Participant: Yes New Discharge Prescriptions: New Aspirin 81 mg PO DAILY chew Furosemide [Lasix] 40 mg PO DAILY #30 tab Lisinopril [Zestril] 10 mg PO DAILY@1200 #30 tab Spironolactone [Aldactone] 25 mg PO DAILY #30 tab Continue Simvastatin [Zocor] 20 mg PO HS Omeprazole 20 mg PO DAILY Metoprolol Tartrate [Lopressor] 50 mg PO DAILY Ipratropium/Albuterol Sulfate [Combivent Respimat Inhaler] 1 puff INHALATION RT-QID Allopurinol [Zyloprim] 300 mg PO DAILY Discharge Medication List Allopurinol [Zyloprim] 300 mg PO DAILY 01/29/18 [History] Ipratropium/Albuterol Sulfate [Combivent Respimat Inhaler] 1 puff INHALATION RT- QID 01/29/18 [History] Metoprolol Tartrate [Lopressor] 50 mg PO DAILY 01/29/18 [History] Omeprazole 20 mg PO DAILY 01/29/18 [History] Simvastatin [Zocor] 20 mg PO HS 01/29/18 [History] Aspirin 81 mg PO DAILY chew 02/01/18 [Rx] Furosemide [Lasix] 40 mg PO DAILY #30 tab 02/01/18 [Rx] Lisinopril [Zestril] 10 mg PO DAILY@1200 #30 tab 02/01/18 [Rx] Spironolactone [Aldactone] 25 mg PO DAILY #30 tab 02/01/18 [Rx] Follow up Appointment(s)/Referral(s): Chelsi Arita DO [Primary Care Provider] - 1-2 days (Pt. to make own appt. per request) Brett Reid MD [STAFF PHYSICIAN] - 02/15/18 3:00 pm Ambulatory/Diagnostic Orders: Basic Metabolic Panel [LAB.AMB] Location: Determined By Patient Patient Instructions/Handouts: *Surgery [facility] - After Heart Catheterization - Supervisor Polishing Instructions, Heart Failure (DC), Left Heart Catheterization (DC ), Pulmonary Edema (DC) Activity/Diet/Wound Care/Special Instructions: heart healthy low sodium diet, 2L fluid restriction Activity as tolerated. Ask about cardiac rehab at your appointment with Dr. Reid. Don't forget you A1C was 5.9 and you will need a repeat CAT scan of the chest in 3 months to check on the nodularity in your right lung. Discharge Disposition: HOME SELF-CARE
[2018-02-02] MEDS ORDERED: FUROSEMIDE 40 MG TAB PO SCH (09:00)
--- NOTE | 2018-02-08 18:51 | CDI ---
Documentation Clarification Form Date: 02/08/2018 12:00:00 AM From: CHIQUIS Muhammad; Didi Banks Nail Expert Phone: If you have a question about this query, please contact Didi Banks Nail Expert at [phone] between 8am and 5pm. Admit Date: 01/29/2018 4:17:00 PM Patient Name: Kristel Harris Visit Number: [id number] Discharge Date: 02/01/2018 ATTENTION: The Clinical Documentation Specialists (CDI) and [facility] Coding Staff appreciate your assistance in clarifying documentation. Please respond to the clarification below the line at the bottom and electronically sign. The CDI & [facility] Coding staff will review the response and follow-up if needed. Please note: Queries are made part of the Legal Health Record. If you have any questions, please contact the author of this message via ITS. Dr. Erinn Pat The patient presented in exacerbation of CHF and ventricular tachycardia. Laboratory finding of magnesium 1.8 was noted, and patient received IV magnesium. Please provide a diagnosis, if known, that would require this treatment. Hypomagnesemia MTDD
--- NOTE | 2018-02-08 18:52 | CDI ---
Documentation Clarification Form Date: 02/08/2018 12:00:00 AM From: CHIQUIS Muhammad; Didi Banks Supervisor [employer] Phone: If you have a question about this query, please contact Didi Banks Supervisor [employer] [facility] at [phone] between 8am and 5pm. Admit Date: 01/29/2018 4:17:00 PM Patient Name: Kristel Harris Visit Number: [id number] Discharge Date: 02/01/2018 ATTENTION: The Clinical Documentation Specialists (CDI) and [facility] Coding Staff appreciate your assistance in clarifying documentation. Please respond to the clarification below the line at the bottom and electronically sign. The CDI & [facility] Coding staff will review the response and follow-up if needed. Please note: Queries are made part of the Legal Health Record. If you have any questions, please contact the author of this message via ITS. Dr. Erinn Pat The patient presented with CHF exacerbation and ventricular tachycardia. Blood glucose levels during admission were 137, 115 and 104. Hemoglobin A1C was 5.9. Per discharge summary, his A1C results were discussed and this is being actively followed as an outpatient (Dr. Arita). Please document the diagnosis, if known, that requires this monitoring. - There is no diagnosis for code for and A1C of 5.9 it was just to inform the patient to have this rechecked in a few months. Therefore this is not a diagnosis just a suggestion MTDD
== END 2018-02-01 10:39 | disposition home or self-care (01) | DRG 287 ==
LOC: EC 13:07 → 6SEL 16:17
PROVIDERS: ADMIT Internal Medicine; ATTEND Internal Medicine
PROC: B2151ZZ Fluoroscopy of Left Heart using Low Osmolar Contrast (ICD-10-PCS; principal; 2018-01-31 12:49)
PROC: 4A023N7 Measurement of Cardiac Sampling and Pressure, Left Heart, Percutaneous Approach (ICD-10-PCS; principal; 2018-01-31 12:49)
PROC: B2111ZZ Fluoroscopy of Multiple Coronary Arteries using Low Osmolar Contrast (ICD-10-PCS; principal; 2018-01-31 12:49)
DX: I11.0 Hypertensive heart disease with heart failure (principal); I47.2 Ventricular tachycardia; E66.01 Morbid (severe) obesity due to excess calories; J44.1 Chronic obstructive pulmonary disease with (acute) exacerbation; I42.9 Cardiomyopathy, unspecified; E83.42 Hypomagnesemia; I50.21 Acute systolic (congestive) heart failure; Z68.35 Body mass index [BMI] 35.0-35.9, adult; E78.00 Pure hypercholesterolemia, unspecified; E78.5 Hyperlipidemia, unspecified; I25.10 Atherosclerotic heart disease of native coronary artery without angina pectoris; I49.3 Ventricular premature depolarization; R91.1 Solitary pulmonary nodule; G47.00 Insomnia, unspecified; I25.2 Old myocardial infarction; K21.9 Gastro-esophageal reflux disease without esophagitis; M10.9 Gout, unspecified; Z96.642 Presence of left artificial hip joint; T38.0X5A Adverse effect of glucocorticoids and synthetic analogues, initial encounter; Z79.899 Other long term (current) drug therapy; Z80.3 Family history of malignant neoplasm of breast; Z82.49 Family history of ischemic heart disease and other diseases of the circulatory system; Z87.891 Personal history of nicotine dependence; Z71.3 Dietary counseling and surveillance
CPT/HCPCS: 36415; 71046; 71275; 80048; 80053; 80061; 82550; 82553; 83036; 83735; 83880; 84100; 84443; 84484; 85025; 85379; 85610; 85730; 93005; 93306; 93458; 94640; 94760; 96374; 99285

== ENCOUNTER → 2019-03-12 | Outpatient (CLI) | payer MEDICARE ==
[2019-03-12 09:00] LABS: HCT 40.4 % (39.0-53.0); HGB 14.1 gm/dL (13.0-17.5); MCH 30.4 pg (25.0-35.0); MCHC 34.7 g/dL (31.0-37.0); MCV 87.6 fL (80.0-100.0); Mean Platelet Volume 9.3; Platelet Count 172 k/uL (150-450); RBC 4.61 m/uL (4.30-5.90); RDW 14.2 % (11.5-15.5); WBC 5.8 k/uL (3.8-10.6)
[2019-03-12 09:12] LABS: Anion Gap 8 mmol/L; Blood Urea Nitrogen 25 mg/dL (9-20); Carbon Dioxide 27 mmol/L (22-30); Chloride 104 mmol/L (98-107); Potassium 5.1 mmol/L (3.5-5.1); Sodium 139 mmol/L (137-145)
== END | disposition home or self-care (01) ==
LOC: LABPAT 08:41
PROVIDERS: ATTEND Internal Medicine Cardiovascular Disease
DX: Z01.812 Encounter for preprocedural laboratory examination (principal); I42.0 Dilated cardiomyopathy
CPT/HCPCS: 36415; 80051; 82565; 84520; 85027

== ENCOUNTER 2019-03-28 08:37 | Day surgery (SDC) | payer MEDICARE ==
[2019-03-27 08:52] VITALS: BMI 32.1
[2019-03-28] MEDS: SODIUM CHLORIDE 0.9% 1,000 ML IV SCH ×2 (09:00→17:25)
[2019-03-28] MEDS ORDERED: ceFAZolin IN SWFI 2 GM/20 ML SYRINGE IVP ONE (09:30)
[2019-03-28] MEDS ORDERED: ceFAZolin 1,000 MG in SODIUM CHLORIDE 0.9% IRRIGATIO 250 ML IRRIGATION ONE (09:30)
[2019-03-28] MEDS ORDERED: KETAMINE 10 MG/ML 20 ML VIAL ONE (10:34)
[2019-03-28] MEDS ORDERED: fentaNYL (PF) 50 MCG/ML 2 ML AMP ONE (10:34)
[2019-03-28] MEDS ORDERED: PROPOFOL 10 MG/ML 20 ML VIAL IV ONE (10:34)
[2019-03-28] MEDS ORDERED: MIDAZOLAM 2 MG/2 ML VIAL ONE (10:34)
[2019-03-28] MEDS ORDERED: IOPAMIDOL-250 50ML BTL IV ONE (10:49)
[2019-03-28] MEDS ORDERED: LIDOCAINE 1% INJ 10MG/ML (20 ML MDV) SQ ONE ×2 (11:26→11:29)
[2019-03-28] MEDS ORDERED: ACETAMINOPHEN TAB 325 MG TAB PO PRN (12:06)
[2019-03-28] MEDS: IPRATROPIUM-ALBUTEROL 3 ML NEB INHALATION SCH ×2 (15:26→20:17)
[2019-03-28] MEDS: ceFAZolin IN SWFI 2 GM/20 ML SYRINGE IVP SCH ×2 (18:21→23:15)
[2019-03-28] MEDS ORDERED: ATORVASTATIN 10 MG TAB PO SCH (21:00)
[2019-03-28] MEDS: HYDROcodone/APAP 5-325MG 1 EACH TAB PO PRN ×2 (21:40→22:39)
[2019-03-28] MEDS: MELOXICAM 7.5 MG TAB PO SCH (21:41)
[2019-03-29] MEDS: SODIUM CHLORIDE 0.9% 1,000 ML IV SCH ×2 (04:22)
[2019-03-29] MEDS: ceFAZolin IN SWFI 2 GM/20 ML SYRINGE IVP SCH ×2 (05:33→12:20)
[2019-03-29] MEDS: HYDROcodone/APAP 5-325MG 1 EACH TAB PO PRN ×2 (05:41→11:28)
[2019-03-29] MEDS: IPRATROPIUM-ALBUTEROL 3 ML NEB INHALATION SCH (07:29)
[2019-03-29] MEDS ORDERED: PANTOPRAZOLE 40 MG TABLET PO SCH (07:30)
--- NOTE | 2019-03-29 08:11 | XR ---
EXAMINATION TYPE: XR chest 2V DATE OF EXAM: 03/29/2019 COMPARISON: 01/29/2018 TECHNIQUE: PA and lateral views submitted. HISTORY: Lead placement check FINDINGS: Single lead cardiac device seen with tip overlying the region of the right ventricle underlying inter stitial pattern seen with partial eventration right hemidiaphragm. Hypertrophic and degenerative zheng ges spine noted. There is bibasilar subsegmental consolidation. Biapical pleural thickening. Correlat e for chronic interstitial lung disease and COPD. Atherosclerotic change aorta. IMPRESSION: 1. Right cardiophrenic angle increased density likely related to either diaphragmatic hernia or parti al eventration of the hemidiaphragm. 2. cardiac lead appears overlying the right ventricle no sizable pneumothorax. 3. Correlate for COPD and interstitial lung disease or venous congestion.
[2019-03-29] MEDS: MELOXICAM 7.5 MG TAB PO SCH (08:44)
[2019-03-29] MEDS ORDERED: SPIRONOLACTONE 25 MG TAB PO SCH (09:00)
[2019-03-29] MEDS ORDERED: FUROSEMIDE 40 MG TAB PO SCH (09:00)
[2019-03-29] MEDS ORDERED: ALLOPURINOL 300 MG TAB PO SCH (09:00)
[2019-03-29] MEDS ORDERED: METOPROLOL TARTRATE 50 MG TAB PO SCH (09:00)
[2019-03-29] MEDS ORDERED: LISINOPRIL 10 MG TAB PO SCH (12:00)
[2019-03-29 12:22] VITALS: BP 132/65; PULSE 50; RESP 15; TEMP 97.6
--- NOTE | 2019-04-01 16:44 | P.PCN ---
Date of Procedure: 04/01/19 Preoperative Diagnosis: Nonischemic cardiomyopathy Postoperative Diagnosis: Nonischemic cardiomyopathy, CHF Procedure(s) Performed: Single-chamber AICD implantation Description of Procedure: HISTORY: This is a 73-year-old gentleman with history of chronic nonischemic cardio myopathy, mild coronary artery disease and chronic CHF class II, was referred for prophylactic AICD implantation. Patient and family were explained the risks and benefit for the procedure CONSENT:I have discussed the risks, benefits and alternative therapies for the above-mentioned procedure and for both sedation/analgesia as well as necessary blood product administration, if indicated, as they pertain to this patient. The patient has indicated understanding and acceptance of the risks and procedures discussed. PROCEDURE: Patient was brought to the lab in a fasting state. Patient was prepped and draped in the usual fashion. Patient was given IV sedation with fentanyl and Versed. The skin below the left clavicle was infiltrated with lidocaine. An incision was made parallel to deltopectoral groove was deepened until the pectoral fascia was exposed. A pocket was created by blunt dissection and cautery. Axillary venography was performed to delineate the course of the axillary vein. 1 venous stick was performed into extrathoracic portion of the axillary vein and a single sheath was advanced over the guidewires and left in subclavian vein. Conscious Sedation: As per anesthesia Duration 32minutes LEADS: VENTRICULAR: This is manufactured by [employer]. Model number is 6935M [id number] and the serial number is [id number]. THE DEVICE: This is manufactured by [employer]. Model number is [id number] and the serial number is [id number] The ventricular lead is maneuvered l with help of a straight and curved stylets into the left ventricle apical region. Satisfactory position was obtained and threshold measurements were made. The atrial lead was then maneuvered into the right atrial appendage. And thresholds were obtained. THRESHOLDS: VENTRICLE: The minimal patient threshold was 0.7 at pulse width of 0.5. The impedance is 5 and 89 R-wave: 5 mV DFT TESTING: Patient was given deep anesthesia by department of anesthesia. Ventricular fibrillation was induced with T shock. This was appropriately detected and a single shock of 15 J converted patient to sinus rhythm. Patient tolerated the procedure well. No significant dropouts. The testing was done with the least sensitivity The leads and pulse generator remained in the pocket after it was washed with antibiotics. Pocket was closed in the usual fashion. The fascia was closed with 2-0 Prolene ,the subcutaneous tissue was closed with 3-0 Prolene and the skin was closed with 4-0 Prolene. PROGRAMMING: Bradycardia therapy: MODE: VVI RATE: 40 OUTPUT: Ventricle: 3.5 Tachycardia therapy: VF zone is programmed to a rate of 200 bpm. The therapies are programmed to 25 J followed by 355. VT monitor zone was programmed to 1 50 bpm FINAL IMPRESSION: #1. Axillary venography #2. 6. Implantation of single- chamber AICD #3. DFT testing COMPLICATIONS: None PLAN: Good
== END 2019-03-29 13:10 ==
LOC: CATHEP 08:37 → 1SOBS 12:15 → CATHEP 03-29 13:10
PROVIDERS: ATTEND Internal Medicine Cardiovascular Disease
DX: I42.0 Dilated cardiomyopathy (principal); I25.10 Atherosclerotic heart disease of native coronary artery without angina pectoris; I11.0 Hypertensive heart disease with heart failure; I50.22 Chronic systolic (congestive) heart failure; E78.5 Hyperlipidemia, unspecified; I34.0 Nonrheumatic mitral (valve) insufficiency; J84.9 Interstitial pulmonary disease, unspecified; Z79.82 Long term (current) use of aspirin; Z79.899 Other long term (current) drug therapy
CPT/HCPCS: 94640 ×3; 93641; 33249; 71046; C1895; C1722; J2250; J0690 ×3; J2001; J3010; J2704; Q9966

== ENCOUNTER 2020-06-16 10:00 | Day surgery (SDC) | payer MEDICARE ==
[2020-06-15 08:37] VITALS: BMI 31.8
[~2020-06-16 10:00] MED LIST: LACTATED RINGERS 1,000 ML IV SCH; LIDOCAINE 1% (10MG/ML) FOR IV START INTRADERMA PRN
[2020-06-16 10:16] VITALS: RESP 16; TEMP 96.7
[2020-06-16] MEDS ORDERED: ONDANSETRON 4 MG/2 ML VIAL ONE (12:09)
[2020-06-16] MEDS ORDERED: ONDANSETRON 4 MG/2 ML VIAL IVP ONE (12:10)
[2020-06-16] MEDS ORDERED: PROPOFOL 10 MG/ML 20 ML VIAL IV ONE (12:15)
[2020-06-16] MEDS ORDERED: LIDOCAINE 1% INJ 10MG/ML (20 ML MDV) ONE (12:15)
--- NOTE | 2020-06-16 12:58 | P.PCN ---
Date of Procedure: 06/16/20 Description of Procedure: BRIEF HISTORY: Patient is a 74-year-old male presenting for outpatient colonoscopy for screening for malignant neoplasm colon. Last colonoscopy over 5 years ago per the patient's recollection. He has had multiple colonoscopies in the past. No change in bowel habits, blood per rectum or family history of colon cancer reported. PROCEDURE PERFORMED: Colonoscopy with polypectomy. PREOPERATIVE DIAGNOSIS: Screening for malignant neoplasm in the colon, last colonoscopy over 5 years ago. ESTIMATED BLOOD LOSS: Minimal. IV sedation per Anesthesia. PROCEDURE: After informed consent was obtained, the patient, was brought into the endoscopy unit. IV sedation was administered by Anesthesia under continuous monitoring. Digital rectal examination was normal. Initially the Olympus CF-190 flexible video colonoscope was then inserted in the rectum, gradually advanced into the cecum without any difficulty. Careful examination was performed as the scope was gradually being withdrawn. Ileocecal valve and the appendiceal orifice were visualized and appeared normal. Prep was excellent. Mucosa of the cecum, ascending colon, transverse colon, descending colon, sigmoid colon, and rectum appeared normal. Diminutive 2 mm cecal polyp removed with cold forcep polypectomy. 3 diminutive ascending colon polyps measuring 2 to to 3 mm in size removed with cold forcep polypectomy. A a few scattered small and large mouth diverticula noted in the sigmoid colon. Retroflexion was performed in the rectum and no lesions were seen, low-grade internal hemorrhoids noted. The patient tolerated the procedure well. IMPRESSION: 4 diminutive polyps one from the cecum and 3 from the ascending colon removed with cold forcep polypectomy. Mild sigmoid diverticulosis. RECOMMENDATIONS: Findings of this examination were discussed with the patient. Okay to resume diet. Okay to resume medications. Can restart Eliquis tomorrow. Await pathology from polypectomies. Would recommend repeat colonoscopy in 5 years pending pathology from polypectomy.
[2020-06-16 13:22] VITALS: BP 104/66; PULSE 63
== END 2020-06-16 13:59 | disposition home or self-care (01) ==
LOC: ORWHC2ENDO 10:00
PROVIDERS: ATTEND Internal Medicine
DX: Z12.11 Encounter for screening for malignant neoplasm of colon (principal); D12.2 Benign neoplasm of ascending colon; K57.30 Diverticulosis of large intestine without perforation or abscess without bleeding; K64.8 Other hemorrhoids; I48.0 Paroxysmal atrial fibrillation; E78.5 Hyperlipidemia, unspecified; I11.0 Hypertensive heart disease with heart failure; I50.9 Heart failure, unspecified; J44.9 Chronic obstructive pulmonary disease, unspecified; K21.9 Gastro-esophageal reflux disease without esophagitis; Z87.891 Personal history of nicotine dependence; Z79.899 Other long term (current) drug therapy; Z79.01 Long term (current) use of anticoagulants; Z95.810 Presence of automatic (implantable) cardiac defibrillator; Z98.890 Other specified postprocedural states; Z96.642 Presence of left artificial hip joint
CPT/HCPCS: 88305; 45380; J2405; J2001; J2704

== ENCOUNTER 2022-01-13 14:11 | Inpatient (IN) | payer MEDICARE ==
[2022-01-13] MEDS ORDERED: SODIUM CHLORIDE 0.9% 1,000 ML IV STA (17:24)
[2022-01-13 17:46] LABS: Anisocytosis Slight; Basophils % (A) 0 %; Eosinophils # (A) 0.1 k/uL (0-0.7); Eosinophils % (A) 0 %; HCT 43.7 % (39.0-53.0); HGB 13.7 gm/dL (13.0-17.5); Hypochromasia Moderate; Lymphocytes # (A) 0.8 k/uL (1.0-4.8); Lymphocytes % (A) 7 %; MCH 28.1 pg (25.0-35.0); MCHC 31.4 g/dL (31.0-37.0); MCV 89.5 fL (80.0-100.0); Mean Platelet Volume 8.8; Monocytes # (A) 0.3 k/uL (0-1.0); Monocytes % (A) 3 %; Neutrophils # (A) 10.5 k/uL (1.3-7.7); Neutrophils % (A) 88 %; Platelet Count 201 k/uL (150-450); RBC 4.88 m/uL (4.30-5.90); RDW 16.1 % (11.5-15.5)
[2022-01-13 17:59] LABS: Calcium 9.5 mg/dL (8.4-10.2); Total Bilirubin 1.5 mg/dL (0.2-1.3); Total Protein 8.6 g/dL (6.3-8.2)
[2022-01-13 18:00] LABS: INR 1.2 (<1.2); Partial Thromboplastin Time 30.7 sec (22.0-30.0); Prothrombin Time 12.5 sec (9.0-12.0)
[2022-01-13 18:15] LABS: Potassium 4.3 mmol/L (3.5-5.1)
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
--- NOTE | 2022-01-13 18:54 | CT ---
EXAMINATION TYPE: CT abdomen pelvis wo con DATE OF EXAM: 01/13/2022 HISTORY: abdominal pain, vomiting, diarrhea CT DLP: 1080.4 mGycm. Automated Exposure Control for Dose Reduction was Utilized. TECHNIQUE: CT scan of the abdomen and pelvis is performed without oral or IV contrast. COMPARISON: 05/06/11 FINDINGS: Within the limitations of a non-contrast study, the following observations are made. LUNG BASES: No acute process. Moderate cardiomegaly noted. LIVER/GB: No significant abnormality is appreciated. PANCREAS: No significant abnormality is seen. SPLEEN: No significant abnormality is seen. ADRENALS: No significant abnormality is seen. KIDNEYS: Left renal cystic lesion which may not be simple, doubled in size since prior study. BOWEL: Mild-moderate sigmoid colon inflammatory changes noted. No extraluminal fluid/gas collection, no bowl obstruction or pneumatosis or pneumoperitoneum. GENITAL ORGANS: No gross abnormality seen. LYMPH NODES: No greater than 1cm abdominal or pelvic lymph nodes are appreciated. OSSEOUS STRUCTURES: No significant abnormality is seen. IMPRESSION: 1. Acute mild-moderate sigmoid diverticulitis. If no recent colonoscopy then eventual direct visualiz ation recommended to ensure normal underlying mucosa. 2. Left renal complex cystic lesion; further characterization recommended with nonurgent renal mass p rotocol CT or MR without and with contrast.
[2022-01-13 19:06] LABS: Appearance,Urine Clear (Clear); Bilirubin,Urine Negative (Negative); Blood,Urine Negative (Negative); Color,Urine Yellow; Glucose,Urine (UA) Negative (Negative); Ketones,Urine 1+ (Negative); Leukocyte Esterase,Urine Negative (Negative); Nitrite,Urine Negative (Negative); PH, Urine 5.5 (5.0-8.0); Protein,Urine Trace (Negative); Specific Gravity,Urine 1.016 (1.001-1.035); Urobilinogen,Urine <2.0 mg/dL (<2.0)
[2022-01-13] MEDS ORDERED: cefTRIAXone IN SWFI 1,000 MG/10 ML SYRINGE IVP STA (19:55)
[2022-01-13] MEDS ORDERED: metroNIDAZOLE-NS PMX 500 MG in SALINE 1 100ML.BAG IVPB STA (19:56)
[2022-01-13] MEDS: SODIUM CHLORIDE 0.9% 1,000 ML IV SCH (20:23)
[2022-01-13] MEDS ORDERED: ACETAMINOPHEN TAB 325 MG TAB PO PRN (20:42)
[2022-01-13] MEDS ORDERED: NALOXONE 0.4 MG/ML 1 ML VIAL IV PRN (20:42)
[2022-01-13] MEDS ORDERED: ONDANSETRON 4 MG/2 ML VIAL IVP PRN (20:42)
[2022-01-13] MEDS ORDERED: MORPHINE SULFATE 4 MG/ML SYRINGE IV PRN (20:42)
[2022-01-13] MEDS ORDERED: ALBUTEROL NEBULIZED 2.5 MG/3 ML INHALATION PRN (22:17)
[2022-01-13] MEDS: SPIRONOLACTONE 25 MG TAB PO SCH (23:18)
[2022-01-13] MEDS: TORSEMIDE 20 MG TAB PO SCH (23:18)
[2022-01-13] MEDS: TAMSULOSIN 0.4 MG CAP.ER.24H PO SCH (23:18)
[2022-01-13] MEDS: SACUBITRIL/VALSARTAN 24 MG-26 MG TABLET PO SCH (23:20)
[2022-01-13] MEDS: PANTOPRAZOLE 40 MG/10 ML VIAL IVP SCH (23:20)
[2022-01-13] MEDS: METOPROLOL SUCCINATE (ER) 100 MG TAB.ER.24H PO SCH (23:20)
[2022-01-13] MEDS: APIXABAN 5 MG TAB PO SCH (23:20)
[2022-01-14] MEDS: metroNIDAZOLE-NS PMX 500 MG in SALINE 1 100ML.BAG IVPB SCH ×3 (02:17→16:54)
[2022-01-14] MEDS: PANTOPRAZOLE 40 MG/10 ML VIAL IVP SCH (08:58)
[2022-01-14] MEDS: SACUBITRIL/VALSARTAN 24 MG-26 MG TABLET PO SCH ×2 (08:59→20:59)
[2022-01-14] MEDS: TORSEMIDE 20 MG TAB PO SCH ×2 (08:59→20:59)
[2022-01-14] MEDS: APIXABAN 5 MG TAB PO SCH ×2 (08:59→20:59)
[2022-01-14 09:02] LABS: Basophils # (A) 0.02 X 10*3/uL (0.00-0.10); Basophils % (A) 0.2 %; Eosinophils # (A) 0.03 X 10*3/uL (0.04-0.35); Eosinophils % (A) 0.3 %; HCT 38.5 % (39.6-50.0); HGB 11.3 g/dL (13.0-17.0); Immature Grans, Automated 0.6 %; Lymphocytes # (A) 0.84 X 10*3/uL (0.90-5.00); Lymphocytes % (A) 9.5 %; MCH 26.6 pg (27.0-32.0); MCHC 29.4 g/dL (32.0-37.0); MCV 90.6 fL (80.0-97.0); Mean Platelet Volume 11.5 fL (9.5-12.2); Monocytes # (A) 0.74 X 10*3/uL (0.20-1.00); Monocytes % (A) 8.3 %; NRBC Per 100 WBC 0 /100 WBCS (0.0-0.0); Neutrophils # (A) 7.19 X 10*3/uL (1.80-7.70); Neutrophils % (A) 81.1 %; Platelet Count 179 X 10*3/uL (140-440); RBC 4.25 X 10*6/uL (4.40-5.60); RDW 15.9 % (11.5-14.5); WBC 8.87 X 10*3/uL (4.50-10.00)
[2022-01-14] MEDS ORDERED: MORPHINE SULFATE 2 MG/ML SYRINGE IVP PRN (09:20)
[2022-01-14 09:21] LABS: African American GFR (CKD) 85.6 (60.0-200.0); Albumin 4.1 g/dL (3.8-4.9); Albumin/Globulin Ratio 1.78 (1.60-3.17); BUN/Creat Ratio 25.6 Ratio (12.00-20.00); Blood Urea Nitrogen 25.6 mg/dL (9.0-27.0); Globulin 2.3 g/dL (1.6-3.3); Magnesium 2.2 mg/dL (1.5-2.4); Non-African American GFR(CKD) 73.8 (60.0-200.0); Potassium 3.8 mmol/L (3.5-5.5); Total Bilirubin 0.6 mg/dL (0.30-1.20); Total Protein 6.4 g/dL (6.2-8.2)
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
[2022-01-14] MEDS: SODIUM CHLORIDE 0.9% 1,000 ML IV SCH (16:53)
[2022-01-14] MEDS: TAMSULOSIN 0.4 MG CAP.ER.24H PO SCH (20:59)
[2022-01-14] MEDS: METOPROLOL SUCCINATE (ER) 100 MG TAB.ER.24H PO SCH (20:59)
[2022-01-14] MEDS: SPIRONOLACTONE 25 MG TAB PO SCH (20:59)
[2022-01-14] MEDS ORDERED: allopurinoL 300 MG TAB PO SCH (21:00)
[2022-01-15] MEDS: metroNIDAZOLE-NS PMX 500 MG in SALINE 1 100ML.BAG IVPB SCH ×2 (00:03→09:38)
[2022-01-15] MEDS: SODIUM CHLORIDE 0.9% 1,000 ML IV SCH (00:05)
[2022-01-15] MEDS ORDERED: SODIUM CHLORIDE 0.9% 500 ML 500 ML IV ONE (02:36)
[2022-01-15] MEDS: TORSEMIDE 20 MG TAB PO SCH (09:39)
[2022-01-15] MEDS: PANTOPRAZOLE 40 MG/10 ML VIAL IVP SCH (09:39)
[2022-01-15] MEDS: SACUBITRIL/VALSARTAN 24 MG-26 MG TABLET PO SCH (09:40)
[2022-01-15] MEDS: APIXABAN 5 MG TAB PO SCH (09:40)
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
[2022-01-15] MEDS ORDERED: SODIUM CHLORIDE 0.9% 500 ML IV ONE (11:51)
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
[2022-01-15 14:30] VITALS: BP 117/68; PULSE 69; RESP 17; TEMP 97.7
--- NOTE | 2022-01-15 17:00 | ECHOF ---
Referral Reason:VT, cardiomyopathy MEASUREMENTS -------- HEIGHT: 185.4 cm WEIGHT: 106.6 kg BP: IVSd: 1.6 cm (0.6 - 1.1) LVIDd: 6.5 cm (3.9 - 5.3) LVPWd: 1.6 cm (0.6 - 1.1) EDV(Teich): 212 ml IVSs: 1.7 cm LVIDs: 6.1 cm LVPWs: 2.2 cm %IVS Thck: 4 % ESV(Teich): 184 ml EF(Teich): 13 % %FS: 6 % SV(Teich): 28 ml RVIDd: 5.3 cm (< 3.3) Ao Diam: 3.9 cm (2.0 - 3.7) LA Diam: 6.6 cm (2.7 - 3.8) AV Cusp: 2.6 cm (1.5 - 2.6) EPSS: 2.2 cm TR Vmax: 3.30 m/s TR maxP.50 mmHg RAP: 5.00 mmHg RVSP: 48.50 mmHg MV EF SLOPE: 178.67 mm/s (70 - 150) MV EXCURSION: 21.84 mm (> 18.000) FINDINGS -------- This was a technically difficult study with suboptimal views. The left ventricle is moderately dilated. There is moderate concentric left ventricular hypertrophy . There is severe global hypokinesis of LV . Overall left ventricular systolic function is severe ly impaired with, an EF < 20%. The right ventricle is severely enlarged. The left atrium is markedly dilated. The right atrium was not well visualized. xx ml of Lumason was utilized for enhancement of images. There is mild aortic valve sclerosis. Trace amount of aortic regurgitation. There is no evidence of aortic stenosis. Mild mitral annular calcification present. Moderate mitral regurgitation is present. Moderate to severe tricuspid regurgitation present. There is moderate pulmonary hypertension. The right ventricular systolic pressure, as measured by Doppler, is 48.50mmHg. Trace/mild (physiologic) pulmonic regurgitation. The aortic root size is normal. IVC Not well visulized. There is no pericardial effusion. CONCLUSIONS -------- 1. This was a technically difficult study with suboptimal views. 2. The left ventricle is moderately dilated. 3. There is moderate concentric left ventricular hypertrophy. 4. There is severe global hypokinesis of LV . 5. Overall left ventricular systolic function is severely impaired with, an EF < 20%. 6. The right ventricle is severely enlarged. 7. The left atrium is markedly dilated. 8. Trace amount of aortic regurgitation. 9. Moderate mitral regurgitation is present. 10. Moderate to severe tricuspid regurgitation present. 11. There is moderate pulmonary hypertension. 12. Trace/mild (physiologic) pulmonic regurgitation. POLICY ANALYST: Clara Neal RDCS
--- NOTE | 2022-01-16 00:05 | P.DS ---
Providers Date of admission: 01/13/22 20:42 Attending physician: Jesse Finch MD Consults: 01/14/22 21:07 Consult Physician Routine Consulting Provider: Misty Delarosa Consult Reason/Comments: runs of v tach - v paced Do you want consulting provider notified?: Yes, Notify in am 01/14/22 21:15 Consult Physician Routine Consulting Provider: Darinel Strange Consult Reason/Comments: acute diverticulitis Do you want consulting provider notified?: Yes 01/14/22 21:18 Consult Physician Routine Consulting Provider: Joe Newman Consult Reason/Comments: complex renal cyst Do you want consulting provider notified?: Yes 01/14/22 21:20 Consult Physician Routine Consulting Provider: Brennon King Consult Reason/Comments: runs of v tack Do you want consulting provider notified?: Yes, Notify in am Primary care physician: Mago Paoli Hospital Course: Diagnoses Acute diverticulitis Complex left renal cyst Nonsustained ventricular tachycardia Dehydration, improved with IV fluids Hypertension Hyperlipidemia Chronic systolic CHF with ejection fraction 20-25% per echocardiogram 2018 as well as during this admission Moderate mitral regurgitation and moderate tricuspid regurgitation Chronic atrial fibrillation on Eliquis and metoprolol, rate is controlled COPD, no acute exacerbation History of GERD History of osteoarthritis Status post AICD Status post back surgery Hospital course: his is a pleasant 76 years old male with past medical history of COPD, GERD, Hyperlipidemia, Hypertension, Osteoarthritis ,s/p AICD, Back Surgery, CHF, no history of coronary blockage as per patient Patient states he presents because of 2 days of abdominal pain associated with diarrhea which was more 2 days ago,CT of the abdomen and pelvis without IV contrast: Acute mild-moderate sigmoid diverticulitis and left renal complex cystic lesion. Patient treated with antibiotics ceftriaxone and Flagyl and responded to treatment well. His abdominal pain is completely resolved upon discharge and abdomen was soft with no tenderness on palpation, he still have some 4-5 bowel movement but as patient describes they are very little in the amount, besides patient with no vomiting and he tolerates diet, he ate 2 meals about 75% today. Patient evaluated by general surgery today for discharge on oral antibiotics, Ceftin and Flagyl 10 days and with recommendation to follow- up as an outpatient for colonoscopy in 4-6 weeks, patient and informed and both agree and state they will follow up with Dr. strange Urologist evaluated the patient for complex regional wrist active for discharge again patient and informed and both agree and state they will follow up with Dr. newman and the Contact information Acquisitions Assistant evaluated the patient for nonsustained V. tach, patient remains asymptomatic no chest pain or dyspnea, no dizziness or weakness, repeat echo showing ejection fraction less than 20%, he is status post AICD, patient and told me they have an appointment coming up with her lumber carrier Dr. Multani in 2 weeks and the intent to follow-up, patient was instructed with the same and they agree On the day of discharge he was fully awake and oriented, walking with no problem at baseline. He denies any chest pain or dyspnea, no abdominal pain, no nausea vomiting, tolerates diet well, no urinary complaints, no headache or weakness or numbness. No fever. Patient was cleared for discharge by all consultants, the general surgeon, urologist and lumber carrier Problems and management plan were discussed with the patient and he verbalized understanding and acceptance Patient was found stable and can be discharged home however he needs follow-up as an outpatient. Patient was instructed to follow up with PCP within one week and patient agrees patient was instructed to follow up with Dr. strange in 2-4 weeks and he agrees Patient was instructed to follow up with urologist Dr. newman in 1-2 weeks and patient and agree. Risks including but not limited to cancer are explained for both problems of the kidney and the colon and patient and are aware and state they will follow-up Patient was instructed to follow up with his lumber carrier Dr. Reid in one to 2 weeks and they agreed to call and make appointment Physical exam Gen: patient is a AAOx3, no distress CVS: S1-S2, RRR, no murmur Lungs: B/L CTA, no wheezing Abdomen: soft, no distention, no tenderness, positive bowel sounds Extremity: no leg edema or induration Time spent more than 35 minutes Patient Condition at Discharge: Stable Plan - Discharge Summary New Discharge Prescriptions: New Cefuroxime Axetil [Ceftin] 500 mg PO BID 1 Days #20 tab Omeprazole Magnesium [PriLOSEC] 20 mg PO HS #20 tab metroNIDAZOLE [Flagyl] 500 mg PO TID 10 Days #30 tab Continue Simvastatin [Zocor] 20 mg PO HS Omeprazole 20 mg PO HS allopurinoL [Zyloprim] 300 mg PO HS Apixaban [Eliquis] 5 mg PO BID Metoprolol Succinate [Toprol XL] 100 mg PO HS Spironolactone [Aldactone] 25 mg PO HS Sacubitril/Valsartan [Entresto 24 mg-26 mg Tablet] 1 tab PO BID Fluticasone/Umeclidin/Vilanter [Trelegy Ellipta 100-62.5-25] 1 puff INHALATION RT-DAILY Torsemide [Demadex] 40 mg PO BID Tamsulosin HCl [Flomax] 0.4 mg PO HS Albuterol Sulfate [Proair Hfa] 2 puff INHALATION RT-Q6H PRN PRN Reason: Shortness Of Breath Discharge Medication List Omeprazole 20 mg PO HS 01/29/18 [History] Simvastatin [Zocor] 20 mg PO HS 01/29/18 [History] allopurinoL [Zyloprim] 300 mg PO HS 01/29/18 [History] Apixaban [Eliquis] 5 mg PO BID 06/15/20 [History] Albuterol Sulfate [Proair Hfa] 2 puff INHALATION RT-Q6H PRN 01/13/22 [History] Fluticasone/Umeclidin/Vilanter [Trelegy Ellipta 100-62.5-25] 1 puff INHALATION RT-DAILY 01/13/22 [History] Metoprolol Succinate [Toprol XL] 100 mg PO HS 01/13/22 [History] Sacubitril/Valsartan [Entresto 24 mg-26 mg Tablet] 1 tab PO BID 01/13/22 [Histor y] Spironolactone [Aldactone] 25 mg PO HS 01/13/22 [History] Tamsulosin HCl [Flomax] 0.4 mg PO HS 01/13/22 [History] Torsemide [Demadex] 40 mg PO BID 01/13/22 [History] Cefuroxime Axetil [Ceftin] 500 mg PO BID 1 Days #20 tab 01/15/22 [Rx] Omeprazole Magnesium [PriLOSEC] 20 mg PO HS #20 tab 01/15/22 [Rx] metroNIDAZOLE [Flagyl] 500 mg PO TID 10 Days #30 tab 01/15/22 [Rx] Follow up Appointment(s)/Referral(s): Darinel Strange DO [Doctor of Osteopathic Medicine] - 4 Weeks (general surgeon , we recommend a colonoscopy in 6-8 weeks) Brett Reid MD [STAFF PHYSICIAN] - 2 Weeks (your lumber carrier ) Joe Newman MD [STAFF PHYSICIAN] - 3 Weeks (urologist , kidney doctor) Mago Reeder DO [Primary Care Provider] - 1-2 days Patient Instructions/Handouts: Pulmonary Edema (DC), Diverticulitis (DC), Dehydration (DC), Kidney Cyst (GEN) Activity/Diet/Wound Care/Special Instructions: low fiber diet activity is restricted till you see your doctor Discharge Disposition: HOME SELF-CARE
== END 2022-01-15 15:51 | disposition home or self-care (01) | DRG 392 ==
LOC: SUPCPDRO 14:11 → EC 14:11 → 4SSUR 20:42
PROVIDERS: ADMIT Internal Medicine; ATTEND Internal Medicine
DX: K57.92 Diverticulitis of intestine, part unspecified, without perforation or abscess without bleeding (principal); I42.9 Cardiomyopathy, unspecified; I47.2 Ventricular tachycardia; I50.22 Chronic systolic (congestive) heart failure; I48.20 Chronic atrial fibrillation, unspecified; I11.0 Hypertensive heart disease with heart failure; J44.9 Chronic obstructive pulmonary disease, unspecified; I27.20 Pulmonary hypertension, unspecified; I25.10 Atherosclerotic heart disease of native coronary artery without angina pectoris; N28.1 Cyst of kidney, acquired; D72.829 Elevated white blood cell count, unspecified; M10.9 Gout, unspecified; K21.9 Gastro-esophageal reflux disease without esophagitis; R00.1 Bradycardia, unspecified; E78.5 Hyperlipidemia, unspecified; E86.0 Dehydration; I08.1 Rheumatic disorders of both mitral and tricuspid valves; M19.90 Unspecified osteoarthritis, unspecified site; Z79.01 Long term (current) use of anticoagulants; Z79.899 Other long term (current) drug therapy; Z80.3 Family history of malignant neoplasm of breast; Z82.49 Family history of ischemic heart disease and other diseases of the circulatory system; Z87.891 Personal history of nicotine dependence; Z95.810 Presence of automatic (implantable) cardiac defibrillator; Z96.642 Presence of left artificial hip joint
CPT/HCPCS: 36415; 74176; 80053; 81003; 82150; 83605; 83690; 83735; 85025; 85610; 85730; 93005; 93306; 96361; 96365; 96375; 99285

== ENCOUNTER → 2022-02-17 | Outpatient (CLI) | payer MEDICARE | END | disposition home or self-care (01) | LOC: RADCTMAIN 10:29 | PROVIDERS: ATTEND Urology | DX: Z53.9 Procedure and treatment not carried out, unspecified reason (principal) ==

== ENCOUNTER → 2022-03-03 | Outpatient (CLI) | payer MEDICARE ==
--- NOTE | 2022-03-03 20:54 | US ---
EXAMINATION TYPE: US kidneys/renal and bladder DATE OF EXAM: 03/03/2022 COMPARISON: CT 01/13/2022 CLINICAL HISTORY: 76-year-old male D49.511 NEOPLASM UNSPECIFIED BEHAVIOR OF RT KIDNEY. TECHNIQUE: Multiple sonographic images of the kidneys and bladder are obtained. FINDINGS: EXAM MEASUREMENTS: Right Kidney: 9.0 x 5.3 x 5.1 cm Left Kidney: 11.1 x 4.7 x 5.4 cm Right Kidney: No hydronephrosis or masses seen Left Kidney: 3.2 x 3.7 x 2.8cm hypoechoic cortical lesion inferior pole. No hydronephrosis. Bladder: wnl Bilateral Jets seen: no Spleen: enlarged at 16.0cm Small amount of free fluid in RUQ and LUQ. IMPRESSION: 1. No hydronephrosis. 2. A 3.7 cm hypoechoic cortical lesion lower pole left kidney. The CT appearance is suggestive of a c yst. Internal echoes are probably artifactual. A precautionary six-month follow-up ultrasound can ens ure stability. 3. Incidental splenomegaly at 16.0 cm, measured 18.[address] from December. 4. Trace upper abdominal ascites. Clinically correlate as to etiology.
== END | disposition home or self-care (01) ==
LOC: RADUSWWP 14:38
PROVIDERS: ATTEND Family Medicine
DX: N28.89 Other specified disorders of kidney and ureter (principal); R16.1 Splenomegaly, not elsewhere classified; R18.8 Other ascites
CPT/HCPCS: 76770

== ENCOUNTER 2022-05-12 09:54 | Inpatient (IN) | payer MEDICARE ==
[2022-05-12 11:02] LABS: Anisocytosis Slight; Basophils % (A) 1 %; Eosinophils # (A) 0.1 k/uL (0-0.7); Eosinophils % (A) 1 %; HCT 28.8 % (39.0-53.0); HGB 8.4 gm/dL (13.0-17.5); Hypochromasia Marked; Lymphocytes # (A) 0.7 k/uL (1.0-4.8); Lymphocytes % (A) 15 %; MCH 23.9 pg (25.0-35.0); MCHC 29.1 g/dL (31.0-37.0); MCV 82.2 fL (80.0-100.0); Mean Platelet Volume 8.7; Monocytes # (A) 0.3 k/uL (0-1.0); Monocytes % (A) 6 %; Neutrophils # (A) 3.4 k/uL (1.3-7.7); Neutrophils % (A) 76 %; Platelet Count 155 k/uL (150-450); Poikilocytosis Slight; RBC 3.51 m/uL (4.30-5.90); RDW 16.6 % (11.5-15.5); WBC 4.5 k/uL (3.8-10.6)
[2022-05-12 11:09] LABS: INR 1.2 (<1.2); Partial Thromboplastin Time 28.9 sec (22.0-30.0)
--- NOTE | 2022-05-12 11:13 | XR ---
EXAMINATION TYPE: XR chest 2V DATE OF EXAM: 05/12/2022 COMPARISON: 03/29/2019 TECHNIQUE: PA and lateral views submitted. HISTORY: Shortness of breath FINDINGS: Cardiac device. Heart enlarged. Atherosclerotic change aorta diffuse interstitial pattern. Elevated l eft hemidiaphragm. Degenerative and hypertrophic change of the spine. Tiny bilateral pleural effusion or thickening. Biapical pleural thickening. Arthropathy of the shoulders. IMPRESSION: 1. Cardiomegaly correlate for mild venous congestion with small bilateral effusions. Otherwise consid er interstitial pneumonitis or pneumonia.
[2022-05-12 11:17] LABS: Albumin 4.4 g/dL (3.5-5.0); Calcium 8.9 mg/dL (8.4-10.2); Magnesium 2.1 mg/dL (1.6-2.3); Potassium 4.2 mmol/L (3.5-5.1); Total Bilirubin 0.7 mg/dL (0.2-1.3); Total Protein 7.2 g/dL (6.3-8.2)
[2022-05-12 11:27] LABS: Appearance,Urine Clear (Clear); Bilirubin,Urine Negative (Negative); Blood,Urine Negative (Negative); Color,Urine Light Yellow; Glucose,Urine (UA) Negative (Negative); Ketones,Urine Negative (Negative); Leukocyte Esterase,Urine Negative (Negative); Nitrite,Urine Negative (Negative); Protein,Urine Negative (Negative); Specific Gravity,Urine 1.007 (1.001-1.035); Urobilinogen,Urine <2.0 mg/dL (<2.0)
[2022-05-12] MEDS ORDERED: SODIUM CHLORIDE 0.9% 500 ML 500 ML IV STA (11:40)
--- NOTE | 2022-05-12 12:52 | CT ---
EXAMINATION TYPE: CT brain wo con DATE OF EXAM: 05/12/2022 COMPARISON: Pain post fall HISTORY: SOB, Syncopal episode x [address] DLP: 1099.6 mGycm Automated exposure control for dose reduction was used. FINDINGS: Moderate generalized degenerative change. Low attenuation is nonspecific but most typical of remote w nadeen matter ischemia. No acute hemorrhage or mass effect. No midline shift. Changes of chronic sinusitis. Nasal septal deviation noted. Calvarium intact. Orbits are symmetric. C raniocervical junction maintained. Sella turcica normal appearance. IMPRESSION: DEGENERATIVE CHANGE WITH NO ACUTE HEMORRHAGE OR MASS EFFECT.
[2022-05-12] MEDS ORDERED: FUROSEMIDE 10 MG/ML 4 ML VIAL IV SCH (13:00)
[2022-05-12] MEDS ORDERED: NALOXONE 0.4 MG/ML 1 ML VIAL IV PRN (13:01)
[2022-05-12] MEDS ORDERED: ONDANSETRON 4 MG/2 ML VIAL IVP PRN (13:01)
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
[2022-05-12] MEDS ORDERED: metOLazone 2.5 MG TAB PO PRN (13:26)
[2022-05-12] MEDS ORDERED: ASPIRIN 81 MG PO STA (13:45)
[2022-05-12] MEDS: PANTOPRAZOLE 40 MG/10 ML VIAL IVP SCH (14:20)
[2022-05-12] MEDS: TORSEMIDE 20 MG TAB PO SCH (17:31)
[2022-05-12 17:39] LABS: Anisocytosis Slight; Hypochromasia Marked; MCH 23.8 pg (25.0-35.0); MCHC 28.6 g/dL (31.0-37.0); MCV 83.3 fL (80.0-100.0); Mean Platelet Volume 9.7; Platelet Count 134 k/uL (150-450); Poikilocytosis Slight; RBC 3.36 m/uL (4.30-5.90); RDW 16.7 % (11.5-15.5); WBC 4.9 k/uL (3.8-10.6)
[2022-05-12] MEDS: allopurinoL 300 MG TAB PO SCH (19:48)
[2022-05-12] MEDS: TAMSULOSIN 0.4 MG CAP.ER.24H PO SCH (19:48)
[2022-05-12] MEDS: SPIRONOLACTONE 25 MG TAB PO SCH (19:48)
[2022-05-12] MEDS: METOPROLOL SUCCINATE (ER) 100 MG TAB.ER.24H PO SCH (19:48)
[2022-05-12] MEDS: SACUBITRIL/VALSARTAN 49 MG-51 MG TABLET PO SCH (20:30)
[2022-05-12] MEDS ORDERED: PANTOPRAZOLE 40 MG TABLET PO SCH (21:00)
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
--- NOTE | 2022-05-13 07:46 | CA ---
Transthoracic Echo Report Name: Kristel Harris Age: 76 Gender: M : 1945 Exam Date: 05/12/2022 14:01 Exam Location: [facility] Ht (in): 73 Wt (lb): 228 Ordering Physician: Carlton Shoemaker MD Attending/Referring Phys: Brett Reid MD ([id number]) Cardiographer Danika Quintanilla RDCS Procedure CPT: Indications: Heart failure Cardiac Hx: Technical Quality: Good Contrast 1: Total Dose (mL): Contrast 2: Total Dose (mL): MEASUREMENTS (Male / Female) Normal Values 2D ECHO LV Diastolic Diameter PLAX 6.4 cm 4.2 - 5.9 / 3.9 - 5.3 cm LV Systolic Diameter PLAX 5.9 cm IVS Diastolic Thickness 1.4 cm 0.6 - 1.0 / 0.6 - 0.9 cm LVPW Diastolic Thickness 1.5 cm 0.6 - 1.0 / 0.6 - 0.9 cm LV Relative Wall Thickness 0.5 RV Internal Dim ED PLAX 4.9 cm LA Systolic Diameter LX 5.1 cm 3.0 - 4.0 / 2.7 - 3.8 cm LA Volume 137.5 cm??? 18 - 58 / 22 - 52 cm??? M-MODE Aortic Root Diameter MM 3.7 cm MV E Point Septal Separation 0.9 cm AV Cusp Separation MM 2.6 cm DOPPLER AV Peak Velocity 129.4 cm/s AV Peak Gradient 6.7 mmHg AI Peak Velocity 354.1 cm/s AI Peak Gradient 50.1 mmHg AI Pressure Half Time 594.1 ms MV Area PHT 3.7 cm??? MV Deceleration Time 208.7 ms TR Peak Velocity 266.8 cm/s TR Peak Gradient 28.5 mmHg Right Ventricular Systolic Press 32.6 mmHg FINDINGS Left Ventricle Left ventricular ejection fraction is estimated at 20-25 %. Mildly increased left ventricular diastolic diameter. Moderate concentric left ventricular hypertrophy. Right Ventricle Moderate right ventricular dilatation. Mild right ventricular hypokinesis. Right ventricular systolic pressure estimated at 33 mm hg. Right Atrium Right atrium is moderately enlarged Left Atrium Moderately increased left atrial diameter. Severely increased left atrial volume. Moderately increased left atrial area. Mitral Valve Mitral valve thickened. Mitral annular calcification. Trace to mild mitral regurgitation. Aortic Valve Mild aortic regurgitation. No aortic stenosis. Tricuspid Valve [id number] tricuspid regurgitation. Pulmonic Valve Mild pulmonic regurgitation. Pericardium Normal pericardium. No pericardial effusion. Aorta Normal size aortic root and proximal ascending aorta. CONCLUSIONS Left ventricular ejection fraction 2024% Moderate LVH Moderate right ventricular dilation and mild right ventricular hypokinesis RVSP 33 Moderate to severe biatrial enlargement Mitral annular calcification Mild mitral regurgitation Mild aortic regurgitation Mild to moderate tricuspid regurgitation No pericardial effusion Previewed by: Dr. Alli Mccrary DO (Electronically Signed) Final Date: 13 May 2022 07:45
[2022-05-13 08:28] LABS: Anisocytosis Slight; Basophils % (A) 0 %; Eosinophils % (A) 1 %; HCT 26.9 % (39.0-53.0); HGB 7.8 gm/dL (13.0-17.5); Hypochromasia Marked; Lymphocytes # (A) 0.8 k/uL (1.0-4.8); Lymphocytes % (A) 17 %; MCH 23.9 pg (25.0-35.0); MCV 82.4 fL (80.0-100.0); Mean Platelet Volume 10.3; Monocytes # (A) 0.2 k/uL (0-1.0); Monocytes % (A) 5 %; Neutrophils # (A) 3.4 k/uL (1.3-7.7); Neutrophils % (A) 75 %; Platelet Count 140 k/uL (150-450); RBC 3.26 m/uL (4.30-5.90); RDW 16.6 % (11.5-15.5); WBC 4.5 k/uL (3.8-10.6)
[2022-05-13 08:44] LABS: Calcium 8.9 mg/dL (8.4-10.2); Potassium 4.2 mmol/L (3.5-5.1)
[2022-05-13] MEDS: TORSEMIDE 20 MG TAB PO SCH ×2 (08:56→17:36)
[2022-05-13] MEDS: SACUBITRIL/VALSARTAN 49 MG-51 MG TABLET PO SCH ×2 (08:56→20:16)
[2022-05-13] MEDS: PANTOPRAZOLE 40 MG/10 ML VIAL IVP SCH (08:57)
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
[2022-05-13] MEDS: SPIRONOLACTONE 25 MG TAB PO SCH (20:16)
[2022-05-13] MEDS: METOPROLOL SUCCINATE (ER) 100 MG TAB.ER.24H PO SCH (20:16)
[2022-05-13] MEDS: allopurinoL 300 MG TAB PO SCH (20:16)
[2022-05-13] MEDS: TAMSULOSIN 0.4 MG CAP.ER.24H PO SCH (20:16)
[2022-05-14] MEDS: PANTOPRAZOLE 40 MG/10 ML VIAL IVP SCH (09:35)
[2022-05-14] MEDS: SACUBITRIL/VALSARTAN 49 MG-51 MG TABLET PO SCH ×2 (09:38→19:47)
[2022-05-14] MEDS: TORSEMIDE 20 MG TAB PO SCH ×2 (09:38→16:50)
--- NOTE | 2022-05-14 10:41 | P.PN ---
Progress Note - Text Progress Note Date: 05/14/22 Patient is resting comfortably in his bed. He denies any significant source of bleeding. His hemoglobin 7.8. On exam vital signs are stable. Abdomen soft. We will plan for endoscopy on Monday.
--- NOTE | 2022-05-14 15:16 | US ---
EXAMINATION TYPE: US carotid duplex BILAT DATE OF EXAM: 05/14/2022 COMPARISON: NONE CLINICAL HISTORY: dizziness, syncope. EXAM MEASUREMENTS: RIGHT: Peak Systolic Velocity (PSV) cm/sec ----- Right CCA: 69.7 ----- Right ICA: 147.6 ----- Right ECA: 139.7 ICA/CCA ratio: 2.1 RIGHT: End Diastole cm/sec ----- Right CCA: 15.9 ----- Right ICA: 33.3 ----- Right ECA: 7.7 LEFT: Peak Systolic Velocity (PSV) cm/sec ----- Left CCA: 90.3 ----- Left ICA: 121.0 ----- Left ECA: 119.4 ICA/CCA ratio: 1.3 LEFT: End Diastole cm/sec ----- Left CCA: 16.0 ----- Left ICA: 17.6 ----- Left ECA: 0.0 VERTEBRALS (direction of flow): Right Vertebral: Antegrade Left Vertebral: Antegrade Rhythm: Arrhythmia Some plaque seen in bilateral bulbs IMPRESSION: * 50-69% stenosis of the right internal carotid artery. * Less than 50% stenosis of the left internal carotid artery.
--- NOTE | 2022-05-14 17:15 | CONS ---
CONSULTATION CHIEF COMPLAINT: Recurrent falls. This is a 76-year-old gentleman with history of hypertension, dyslipidemia, permanent atrial fibrillation, nonsustained VT, cardiomyopathy, status post ICD, chronic systolic heart failure and coronary artery disease who presented to hospital with recurrent falls at home. The patient states that he is having what he describes as multiple syncopal events; each lasts for a few seconds at a time, associated with bladder and bowel incontinence. There were no documented seizures. Patient follows with Dr. Reid in the outpatient setting and apparently has had negative workup. At the time of my evaluation he appears comfortable at rest and is free of any symptoms. EKG shows a paced rhythm with PVCs. An echocardiogram on this admission revealed severe LV systolic dysfunction with an ejection fraction of 20% with mild mitral and aortic regurgitation. I believe the recurrent falls are noncardiac in origin and we certainly have to rule out a seizure disorder. His past medical history is significant for cardiomyopathy, status post AICD, coronary artery disease, permanent atrial fibrillation, hypertension, dyslipidemia and chronic systolic heart failure. Past surgical history is significant for back surgery, joint replacement, orthopedic surgery. Medications at home are as charted. Allergies are as charted. Family history is negative for premature coronary artery disease. Social history is negative for smoking, EtOH abuse or drug abuse. Review of systems: review of systems has been performed and pertinents are as documented in history of presenting illness. On exam, heart rate is 68 beats per minute, blood pressure is 92/50, respiratory rate is 18, O2 saturation is 100% on room air. There is no jugular venous distention. Carotid upstroke is normal. There is no bruit. Chest exam reveals good air entry bilaterally. Heart exam reveals first and second heart sounds and systolic murmur at the apex. Abdomen is soft. Examination of extremities reveals mild edema. Peripheral pulses are felt. Labs show a hemoglobin of 7.8, platelet count is 140, potassium is 4.2, BUN is elevated at 57, creatinine is 1.5. Troponins are negative. ASSESSMENT: 1. Recurrent falls and syncopal events, probably noncardiac in origin. 2. Ischemic cardiomyopathy, status post AICD. 3. Chronic systolic heart failure. 4. Coronary artery disease. 5. Permanent atrial fibrillation. PLAN: Continue current medications. The patient is on optimal therapy for heart failure. Needs neuro evaluation for seizures. MMODL / IJN: [id number] /
[2022-05-14] MEDS: TAMSULOSIN 0.4 MG CAP.ER.24H PO SCH (19:46)
[2022-05-14] MEDS: METOPROLOL SUCCINATE (ER) 100 MG TAB.ER.24H PO SCH (19:46)
[2022-05-14] MEDS: SPIRONOLACTONE 25 MG TAB PO SCH (19:47)
[2022-05-14] MEDS: allopurinoL 300 MG TAB PO SCH (19:47)
--- NOTE | 2022-05-15 00:43 | P.PN ---
Subjective Progress Note Date: 05/13/22 Patient is a 76-year-old male with a known history of hypertension, hyperlipidemia, osteoarthritis, GERD, chronic atrial fibrillation on anticoagulation with Eliquis, nonsustained V. tach, cardiomyopathy status post ICD placement, chronic CHF with ejection fraction 20 to 25% and coronary artery disease and other multiple medical problems presents to ER with complaints of worsening shortness of breath and exertional dyspnea and multiple fainting spells at home. Yesterday he fell on the curb at home., Denied any hitting his head and loss of consciousness. Patient felt very weak and could not get up by himself. Patient was on follow-up with Dr. Multani and also had heart monitor at home and was told there were no arrhythmias noted in the event monitor. At home patient was hypotensive and also found his blood pressure at 79/42 and pulse rate is also low at the time and made him come to ER. Patient had recent GI work-up with colonoscopy and had residual bleeding with bright stool for about 4 to 5 days. Currently he is having dark stools for the past few days. No nausea or vomiting nausea or vomiting. No hematuria. No hematemesis. No abdominal pain. Denies any orthopnea or PND. Feels better at rest. No worsening leg swelling. Chest x-ray showed cardiomegaly correlate for mild venous congestion with small bilateral effusions. Otherwise considered interstitial pneumonitis or pneum onia. CT head showed degenerative changes showed degenerative changes with no acute hemorrhage or mass hemorrhage or mass-effect. EKG showed sinus rhythm with first-degree AV block with frequent PVCs. PVCs. Laboratory data showed WBC 4.4 hemoglobin 8.3 hemoglobin 8.4 hemoglobin 8.4 MCV 82.2 Sodium 137 potassium 4.2 chloride 101 bicarb is 27 BUN 61 and creatinine 1.6 to Troponin 3 negative and proBNP is 6270 Urinalysis is negative for infection Stool blood is positive. 05/13/2022 Patient is currently sitting in the chair comfortably. Denies any complaints of shortness of breath at rest. Otherwise patient does have exertional dyspnea and also feels like passing out after walking some distance in the hallway. Patient is also becoming hypoxic with ambulation. No complaints of chest pain. No leg swelling. No nausea vomiting abdominal pain or diarrhea. Laboratory data showed hemoglobin level dropped down to 7.8. General surgery has seen the patient and is planning for EGD early next week. FOBT positive. Other laboratory data showed WBC 4.5 platelets 140 21,035 potassium 4.2 chloride 101 bicarb is 27 BUN 57 creatinine 1.56. Current medications reviewed. Objective - Vital Signs Vital signs: Vital Signs Temp 98.2 F 05/13/22 16:00 Pulse 67 05/13/22 16:00 Resp 16 05/13/22 16:00 BP 92/56 05/13/22 16:00 Pulse Ox 95 05/13/22 16:32 FiO2 Intake & Output 05/12/22 05/13/22 05/13/22 18:59 06:59 18:59 Intake Total 120 960 Output Total 250 1000 1475 Balance -130 -1000 -515 Weight 103.419 kg 103.419 kg Intake: Oral 120 960 Output: Urine 250 1000 1475 Other: Voiding Method Toilet Toilet Toilet # Bowel Movements 1 - Exam PHYSICAL EXAMINATION: Patient is lying in the bed comfortably, no acute distress, awake alert and oriented.. HEENT: Normocephalic. Neck is supple. Pupils reactive. Nostrils clear. Oral cavity is moist. Neck reveals no JVD, carotid bruits, or thyromegaly. CHEST EXAMINATION: Trachea is central. Symmetrical expansion. Left basilar crackles. No wheezing. Nonlabored breathing.. CARDIAC: Normal S1, S2 with no gallops. No murmurs ABDOMEN: Soft. Bowel sounds normal. No organomegaly. No abdominal bruits. Extremities: reveal no edema. No clubbing or cyanosis Neurologically awake, alert, oriented x3 with well-coordinated movements. No focal deficits noted Skin: No rash or skin lesions. Psychiatric: Coperative. Nonsuicidal Musculoskeletal: No joint swelling or deformity. Normal range of motion. - Labs CBC & Chem 7: 05/13/22 07:51 05/13/22 07:51 Labs: Abnormal Lab Results - Last 24 Hours (Table) 05/12/22 05/13/22 05/13/22 Range/Units 17:19 07:51 07:51 RBC 3.36 L 3.26 L (4.30-5.90) m/uL Hgb 8.0 L 7.8 L (13.0-17.5) gm/dL Hct 28.0 L 26.9 L (39.0-53.0) % MCH 23.8 L 23.9 L (25.0-35.0) pg MCHC 28.6 L 29.0 L (31.0-37.0) g/dL RDW 16.7 H 16.6 H (11.5-15.5) % Plt Count 134 L 140 L (150-450) k/uL Lymphocytes # 0.8 L (1.0-4.8) k/uL Sodium 135 L (137-145) mmol/L BUN 57 H (9-20) mg/dL Creatinine 1.56 H (0.66-1.25) mg/dL Glucose 138 H (74-99) mg/dL Assessment and Plan Assessment: Worsening shortness of breath and exertional dyspnea. Multifactorial due to sy mptomatic anemia and CHF. Dark-colored stools today to GI bleed likely upper. Recent colonoscopy showed no active bleeding. Multiple syncopal episodes. Workup including event monitor at home showed no arrhythmia. Acute on Chronic CHF with systolic dysfunction ejection fraction 20-25%. Chronic atrial fibrillation on anticoagulant with liquids Cardiomyopathy status post ICD placement Coronary artery disease Hypertension Hyperlipidemia DVT prophylaxis with SCDs Plan: Patient will be continued on telemetry monitoring. Continue with metolazone and Aldactone. 2-D echocardiogram was ordered. Monitor H&H. Continue with IV Protonix and GI was consulted for possible endoscopy and evaluation of anemia and GI bleed. Oxygen supplementation as needed. Continue with aspirin, metoprolol and entresto and other home medications and follow closely. Time with Patient: Greater than 30
--- NOTE | 2022-05-15 00:46 | P.PN ---
Subjective Progress Note Date: 05/14/22 Patient is a 76-year-old male with a known history of hypertension, hyperlipidemia, osteoarthritis, GERD, chronic atrial fibrillation on anticoagulation with Eliquis, nonsustained V. tach, cardiomyopathy status post ICD placement, chronic CHF with ejection fraction 20 to 25% and coronary artery disease and other multiple medical problems presents to ER with complaints of worsening shortness of breath and exertional dyspnea and multiple fainting spells at home. Yesterday he fell on the curb at home., Denied any hitting his head and loss of consciousness. Patient felt very weak and could not get up by himself. Patient was on follow-up with Dr. Multani and also had heart monitor at home and was told there were no arrhythmias noted in the event monitor. At home patient was hypotensive and also found his blood pressure at 79/42 and pulse rate is also low at the time and made him come to ER. Patient had recent GI work-up with colonoscopy and had residual bleeding with bright stool for about 4 to 5 days. Currently he is having dark stools for the past few days. No nausea or vomiting nausea or vomiting. No hematuria. No hematemesis. No abdominal pain. Denies any orthopnea or PND. Feels better at rest. No worsening leg swelling. Chest x-ray showed cardiomegaly correlate for mild venous congestion with small bilateral effusions. Otherwise considered interstitial pneumonitis or pneum onia. CT head showed degenerative changes showed degenerative changes with no acute hemorrhage or mass hemorrhage or mass-effect. EKG showed sinus rhythm with first-degree AV block with frequent PVCs. PVCs. Laboratory data showed WBC 4.4 hemoglobin 8.3 hemoglobin 8.4 hemoglobin 8.4 MCV 82.2 Sodium 137 potassium 4.2 chloride 101 bicarb is 27 BUN 61 and creatinine 1.6 to Troponin 3 negative and proBNP is 6270 Urinalysis is negative for infection Stool blood is positive. 05/13/2022 Patient is currently sitting in the chair comfortably. Denies any complaints of shortness of breath at rest. Otherwise patient does have exertional dyspnea and also feels like passing out after walking some distance in the hallway. Patient is also becoming hypoxic with ambulation. No complaints of chest pain. No leg swelling. No nausea vomiting abdominal pain or diarrhea. Laboratory data showed hemoglobin level dropped down to 7.8. General surgery has seen the patient and is planning for EGD early next week. FOBT positive. Other laboratory data showed WBC 4.5 platelets 140 21,035 potassium 4.2 chloride 101 bicarb is 27 BUN 57 creatinine 1.56. 05/14/2022 Patient is currently lying in bed. Awake alert oriented x3. Breathing status is better and patient is able to walk to the bathroom without much short of breath today. No complaints of chest pain. No fever no chills. No cough or sputum produ ction. Patient is tolerating oral diet. Otherwise patient has been having dizzy spells and syncopal episodes at home. Carotid duplex was ordered and neurology consult presentation.. Patient was see n by cardiology. Laboratories are reviewed. Current medications reviewed. Objective - Vital Signs Vital signs: Vital Signs Temp 97.8 F 05/14/22 19:45 Pulse 64 05/14/22 19:45 Resp 18 05/14/22 19:45 BP 103/58 05/14/22 19:45 Pulse Ox 95 05/14/22 19:45 FiO2 Intake & Output 05/14/22 05/14/22 05/15/22 06:59 18:59 06:59 Intake Total 1560 Output Total 1800 1300 Balance -1800 260 Weight 101.6 kg Intake: Oral 1560 Output: Urine 1800 1300 Other: Voiding Method Toilet Toilet Toilet Urinal Urinal - Exam PHYSICAL EXAMINATION: Patient is lying in the bed comfortably, no acute distress, awake alert and oriented.. HEENT: Normocephalic. Neck is supple. Pupils reactive. Nostrils clear. Oral cavity is moist. Neck reveals no JVD, carotid bruits, or thyromegaly. CHEST EXAMINATION: Trachea is central. Symmetrical expansion. Left basilar crackles. No wheezing. Nonlabored breathing.. CARDIAC: Normal S1, S2 with no gallops. No murmurs ABDOMEN: Soft. Bowel sounds normal. No organomegaly. No abdominal bruits. Extremities: reveal no edema. No clubbing or cyanosis Neurologically awake, alert, oriented x3 with well-coordinated movements. No focal deficits noted Skin: No rash or skin lesions. Psychiatric: Coperative. Nonsuicidal Musculoskeletal: No joint swelling or deformity. Normal range of motion. - Labs CBC & Chem 7: 05/13/22 07:51 05/13/22 07:51 Assessment and Plan Assessment: Worsening shortness of breath and exertional dyspnea. Multifactorial due to symptomatic anemia and CHF. Dark-colored stools today to GI bleed likely upper. Recent colonoscopy showed no active bleeding. Multiple syncopal episodes. Workup including event monitor at home showed no arrhythmia. Acute on Chronic CHF with systolic dysfunction ejection fraction 20-25%. Chronic atrial fibrillation on anticoagulant with liquids Cardiomyopathy status post ICD placement Coronary artery disease Hypertension Hyperlipidemia DVT prophylaxis with SCDs Plan: Patient will be continued on telemetry monitoring. Continue with metolazone and Aldactone. 2-D echocardiogram was ordered. Monitor H&H. Continue with IV Protonix and GI was consulted for possible endoscopy and evaluation of anemia and GI bleed. Oxygen supplementation as needed. Continue with aspirin, metoprolol and entresto and other home medications and follow closely. Neurology evaluation due to recurrent episodes of syncopal spells. 2D echocardiogram showed ejection fraction 2022% LVH and moderate right ventricular dilation and mild right ventricular hypokinesis. Time with Patient: Greater than 30
[2022-05-15 07:21] LABS: Anisocytosis Slight; Basophils % (A) 1 %; Eosinophils # (A) 0.1 k/uL (0-0.7); Eosinophils % (A) 1 %; HCT 30.4 % (39.0-53.0); HGB 8.7 gm/dL (13.0-17.5); Hypochromasia Marked; Lymphocytes # (A) 1.1 k/uL (1.0-4.8); Lymphocytes % (A) 25 %; MCH 23.5 pg (25.0-35.0); MCHC 28.5 g/dL (31.0-37.0); MCV 82.5 fL (80.0-100.0); Mean Platelet Volume 7.8; Monocytes # (A) 0.3 k/uL (0-1.0); Monocytes % (A) 6 %; Neutrophils # (A) 2.8 k/uL (1.3-7.7); Neutrophils % (A) 64 %; Platelet Count 167 k/uL (150-450); RBC 3.69 m/uL (4.30-5.90); RDW 16.5 % (11.5-15.5); WBC 4.4 k/uL (3.8-10.6)
[2022-05-15 08:10] LABS: Calcium 9.1 mg/dL (8.4-10.2); Potassium 4.8 mmol/L (3.5-5.1)
[2022-05-15] MEDS: PANTOPRAZOLE 40 MG/10 ML VIAL IVP SCH (08:23)
[2022-05-15] MEDS: TORSEMIDE 20 MG TAB PO SCH ×2 (08:23→17:39)
[2022-05-15] MEDS ORDERED: PEG 3350 (236 GM/BTL) + LYTES 4,000 ML BOTTLE PO ONE (09:00)
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
[2022-05-15] MEDS: SACUBITRIL/VALSARTAN 49 MG-51 MG TABLET PO SCH ×2 (11:26→21:26)
--- NOTE | 2022-05-15 13:01 | P.PN ---
Progress Note - Text Progress Note Date: 05/15/22 Patient's doing well. He is starting his bowel prep for tomorrow's endoscopy. On exam vital signs are stable. Abdomen soft. Anemia patient will undergo upper and lower endoscopy tomorrow.
--- NOTE | 2022-05-15 14:16 | PN ---
PROGRESS NOTE Kristel is a 76-year-old gentleman with history of hypertension, dyslipidemia, permanent atrial fibrillation, nonsustained VT, cardiomyopathy status post AICD, chronic systolic heart failure, who came to the hospital with having had recurrent falls at home. He is to undergo an EGD tomorrow because of anemia. He has not had any further episodes of syncope on this admission. EXAM: He is comfortable at rest. Heart rate is 50 beats per minute. Blood pressure is 88/41, respiratory rate is 18. Chest exam reveals diminished air entry at the bases without any crackles or rhonchi. Heart exam reveals first and second heart sounds. Systolic murmur at the apex. Abdomen: Soft. Exam of extremities reveals mild edema. Peripheral pulses are felt. ASSESSMENT: 1. Recurrent falls, probably noncardiac in origin. 2. Ischemic cardiomyopathy status post AICD. 3. Chronic systolic heart failure. 4. Permanent atrial fibrillation. 5. Anemia. Once the EGD is done, please resume the Eliquis that the patient is on. Because of hypotension, we will hold the Entresto this morning. MMODL / IJN: [id number] /
[2022-05-15] MEDS ORDERED: FLUTICASONE 50MCG/SPRAY NASAL 16GM EA NOSTRIL PRN (14:49)
[2022-05-15] MEDS: SPIRONOLACTONE 25 MG TAB PO SCH (21:26)
[2022-05-15] MEDS: TAMSULOSIN 0.4 MG CAP.ER.24H PO SCH (21:26)
[2022-05-15] MEDS: METOPROLOL SUCCINATE (ER) 100 MG TAB.ER.24H PO SCH (21:26)
[2022-05-15] MEDS: allopurinoL 300 MG TAB PO SCH (21:26)
--- NOTE | 2022-05-15 22:21 | P.PN ---
Subjective Progress Note Date: 05/15/22 Patient is a 76-year-old male with a known history of hypertension, hyperlipidemia, osteoarthritis, GERD, chronic atrial fibrillation on anticoagulation with Eliquis, nonsustained V. tach, cardiomyopathy status post ICD placement, chronic CHF with ejection fraction 20 to 25% and coronary artery disease and other multiple medical problems presents to ER with complaints of worsening shortness of breath and exertional dyspnea and multiple fainting spells at home. Yesterday he fell on the curb at home., Denied any hitting his head and loss of consciousness. Patient felt very weak and could not get up by himself. Patient was on follow-up with Dr. Multani and also had heart monitor at home and was told there were no arrhythmias noted in the event monitor. At home patient was hypotensive and also found his blood pressure at 79/42 and pulse rate is also low at the time and made him come to ER. Patient had recent GI work-up with colonoscopy and had residual bleeding with bright stool for about 4 to 5 days. Currently he is having dark stools for the past few days. No nausea or vomiting nausea or vomiting. No hematuria. No hematemesis. No abdominal pain. Denies any orthopnea or PND. Feels better at rest. No worsening leg swelling. Chest x-ray showed cardiomegaly correlate for mild venous congestion with small bilateral effusions. Otherwise considered interstitial pneumonitis or pneum onia. CT head showed degenerative changes showed degenerative changes with no acute hemorrhage or mass hemorrhage or mass-effect. EKG showed sinus rhythm with first-degree AV block with frequent PVCs. PVCs. Laboratory data showed WBC 4.4 hemoglobin 8.3 hemoglobin 8.4 hemoglobin 8.4 MCV 82.2 Sodium 137 potassium 4.2 chloride 101 bicarb is 27 BUN 61 and creatinine 1.6 to Troponin 3 negative and proBNP is 6270 Urinalysis is negative for infection Stool blood is positive. 05/13/2022 Patient is currently sitting in the chair comfortably. Denies any complaints of shortness of breath at rest. Otherwise patient does have exertional dyspnea and also feels like passing out after walking some distance in the hallway. Patient is also becoming hypoxic with ambulation. No complaints of chest pain. No leg swelling. No nausea vomiting abdominal pain or diarrhea. Laboratory data showed hemoglobin level dropped down to 7.8. General surgery has seen the patient and is planning for EGD early next week. FOBT positive. Other laboratory data showed WBC 4.5 platelets 140 21,035 potassium 4.2 chloride 101 bicarb is 27 BUN 57 creatinine 1.56. 05/14/2022 Patient is currently lying in bed. Awake alert oriented x3. Breathing status is better and patient is able to walk to the bathroom without much short of breath today. No complaints of chest pain. No fever no chills. No cough or sputum produ ction. Patient is tolerating oral diet. Otherwise patient has been having dizzy spells and syncopal episodes at home. Carotid duplex was ordered and neurology consult presentation.. Patient was see n by cardiology. Laboratories are reviewed. 05/15/2022 Patient is sitting in bedside. Awake alert and oriented x3. Shortness of breath is better today. No complaints of chest pain. patient is hypotensive. No complaints of dizziness. No nausea vomiting abdominal pain or diarrhea. Patient was seen by cardiology and neurology. Neurology recommends no further work-up at this time. CT angiogram of the head and neck once renal function stabilizes. Laboratory data showed WBC 4.4 hemoglobin 8.7 and platelets 167, sodium 134 potassium 4.8 chloride 102 bicarb is 27 BUN 15 creatinine 1.32 and blood sugar is 103. Patient is being continued on metolazone and Aldactone and also on Entresto. General surgery is planning for endoscope tomorrow. US carotid : Right carotid 50 to 69% stenosis . Less than 50% stenosis of left ICA. Current medications reviewed. Objective - Vital Signs Vital signs: Vital Signs Temp 98.2 F 05/15/22 16:00 Pulse 62 05/15/22 16:00 Resp 16 05/15/22 16:00 BP 98/61 05/15/22 16:00 Pulse Ox 100 05/15/22 16:00 FiO2 Intake & Output 05/15/22 05/15/22 05/16/22 06:59 18:59 06:59 Intake Total 360 Output Total 600 Balance -240 Weight 101.1 kg Intake: Oral 360 Output: Urine 600 Other: Voiding Method Toilet Toilet Urinal Urinal # Voids 2 # Bowel Movements 6 - Exam PHYSICAL EXAMINATION: Patient is lying in the bed comfortably, no acute distress, awake alert and oriented.. HEENT: Normocephalic. Neck is supple. Pupils reactive. Nostrils clear. Oral cavity is moist. Neck reveals no JVD, carotid bruits, or thyromegaly. CHEST EXAMINATION: Trachea is central. Symmetrical expansion. Left basilar crackles. No wheezing. Nonlabored breathing.. CARDIAC: Normal S1, S2 with no gallops. No murmurs ABDOMEN: Soft. Bowel sounds normal. No organomegaly. No abdominal bruits. Extremities: reveal no edema. No clubbing or cyanosis Neurologically awake, alert, oriented x3 with well-coordinated movements. No focal deficits noted Skin: No rash or skin lesions. Psychiatric: Coperative. Nonsuicidal Musculoskeletal: No joint swelling or deformity. Normal range of motion. - Labs CBC & Chem 7: 05/15/22 07:01 05/15/22 07:01 Labs: Abnormal Lab Results - Last 24 Hours (Table) 05/15/22 05/15/22 Range/Units 07:01 07:01 RBC 3.69 L (4.30-5.90) m/uL Hgb 8.7 L (13.0-17.5) gm/dL Hct 30.4 L (39.0-53.0) % MCH 23.5 L (25.0-35.0) pg MCHC 28.5 L (31.0-37.0) g/dL RDW 16.5 H (11.5-15.5) % Sodium 134 L (137-145) mmol/L BUN 50 H (9-20) mg/dL Creatinine 1.32 H (0.66-1.25) mg/dL Glucose 103 H (74-99) mg/dL Assessment and Plan Assessment: Worsening shortness of breath and exertional dyspnea. Multifactorial due to symptomatic anemia and CHF. Dark-colored stools today to GI bleed likely upper. Recent colonoscopy showed no active bleeding. Multiple syncopal episodes. Workup including event monitor at home showed no arrhythmia. likley due to Hypotension, CHF and Anemia/GI bleed Right carotid 50 to 69% stenosis Acute on Chronic CHF with systolic dysfunction ejection fraction 20-25%. Chronic atrial fibrillation on anticoagulant with liquids Cardiomyopathy status post ICD placement Coronary artery disease Hypertension Hyperlipidemia DVT prophylaxis with SCDs Plan: Patient will be continued on telemetry monitoring. Continue with metolazone and Aldactone. 2-D echocardiogram was ordered. Monitor H&H. Continue with IV Protonix and GI was consulted for possible endoscopy and evaluation of anemia and GI bleed. Oxygen supplementation as needed. Continue with aspirin, metoprolol and entresto and other home medications and follow closely. Neurology evaluation due to recurrent episodes of syncopal spells. 2D echocardiogram showed ejection fraction 2022% LVH and moderate right ventricular dilation and mild right ventricular hypokinesis. Time with Patient: Greater than 30
[2022-05-16 07:39] LABS: Anisocytosis Slight; Basophils % (A) 1 %; Eosinophils # (A) 0.1 k/uL (0-0.7); Eosinophils % (A) 1 %; HCT 30.9 % (39.0-53.0); HGB 8.9 gm/dL (13.0-17.5); Hypochromasia Marked; Lymphocytes # (A) 0.9 k/uL (1.0-4.8); Lymphocytes % (A) 20 %; MCH 23.8 pg (25.0-35.0); MCHC 28.8 g/dL (31.0-37.0); MCV 82.6 fL (80.0-100.0); Mean Platelet Volume 8.8; Monocytes # (A) 0.3 k/uL (0-1.0); Monocytes % (A) 6 %; Neutrophils % (A) 69 %; Platelet Count 178 k/uL (150-450); Poikilocytosis Slight; RBC 3.74 m/uL (4.30-5.90); WBC 4.4 k/uL (3.8-10.6)
[2022-05-16 07:51] LABS: Calcium 9.4 mg/dL (8.4-10.2); Potassium 4.6 mmol/L (3.5-5.1)
--- NOTE | 2022-05-16 11:49 | P.PN ---
Subjective This pleasant 76-year-old gentleman who follows with Dr. Reid in the office. He has a past history of ischemic cardiomyopathy, status post AICD, CAD with 50-60% lesion in the mid LAD and mild to moderate disease of the RCA noted on cath from 2018, hypertension, hyperlipidemia, permanent atrial fibrillation on Eliquis. Presented to the hospital with complaints of syncopal episode. Patient seen and examined at bedside, in the bedside chair no acute distress. Denies any chest pain. Some shortness of breath with ambulation. Denies any bleeding. Denies any lightheadedness, dizziness. Overall he states he feels better than prior to admission. ELiquis on hold for EGD today. Meds: Metoprolol succinate 100 mg nightly, Entresto 49 mg51 mg twice a day, spironolactone 25 mg daily, torsemide 60 mg twice a day BP 89/54, heart rate 55, afebrile, saturations 90% room air GENERAL: Well-appearing, well-nourished and in no acute distress. NECK: Supple without JVD LUNGS: Breath sounds clear to auscultation bilaterally. Respiration equal and unlabored. No wheezes, rales or rhonchi. HEART: Irregular rate and rhythm without murmurs, rubs or gallops. S1 and S2 heard. EXTREMITIES: Normal range of motion, no edema. No clubbing or cyanosis. Ruthie pheral pulses intact. ASSESSMENT Recurrent Syncope, appears non-cardiac in etiology Shortness of breath Anemia with dark color stools Hypotension Acute Kidney Injury Ischemic cardiomyopathy status post AICD Chronic heart failure with reduced ejection fraction Permanent atrial fibrillation on Eliquis outpatient Mild to moderate coronary artery disease History of Hypertension Dyslipidemia PLAN Continue current cardiac medications Plan for EGD and colonoscopy today Further recommendations based on clinical course Nurse Practitioner note has been reviewed, I agree with a documented findings and plan of care. Patient was seen and examined. Objective - Vital Signs Vital signs: Vital Signs Temp 98.2 F 05/15/22 16:00 Pulse 62 05/15/22 16:00 Resp 16 05/15/22 16:00 BP 98/61 05/15/22 16:00 Pulse Ox 100 05/15/22 16:00 FiO2 Intake & Output 05/15/22 05/15/22 05/16/22 06:59 18:59 06:59 Intake Total 360 Output Total 600 Balance -240 Weight 101.1 kg Intake: Oral 360 Output: Urine 600 Other: Voiding Method Toilet Toilet Urinal Urinal # Voids 2 # Bowel Movements 6 - Labs CBC & Chem 7: 05/16/22 07:09 05/16/22 07:09 Labs: Abnormal Lab Results - Last 24 Hours (Table) 05/15/22 05/15/22 Range/Units 07:01 07:01 RBC 3.69 L (4.30-5.90) m/uL Hgb 8.7 L (13.0-17.5) gm/dL Hct 30.4 L (39.0-53.0) % MCH 23.5 L (25.0-35.0) pg MCHC 28.5 L (31.0-37.0) g/dL RDW 16.5 H (11.5-15.5) % Sodium 134 L (137-145) mmol/L BUN 50 H (9-20) mg/dL Creatinine 1.32 H (0.66-1.25) mg/dL Glucose 103 H (74-99) mg/dL
[2022-05-16] MEDS ORDERED: LACTATED RINGERS 1,000 ML IV ONE ×2 (12:55)
[2022-05-16] MEDS ORDERED: PROPOFOL 10 MG/ML 20 ML VIAL IV ONE (12:57)
--- NOTE | 2022-05-16 13:21 | P.OP ---
Date of Procedure: 05/16/22 Preoperative Diagnosis: Anemia Postoperative Diagnosis: Antral gastritis Hiatal hernia Mild esophagitis Procedure(s) Performed: EGD Anesthesia: MAC Surgeon: Colt Lopez Pathology: other (Antrum, esophagus) Condition: stable Disposition: PACU Description of Procedure: The patient's placed on the endoscopy table in the lateral position. He received IV sedation. The the gastroscope someplace patient's oropharynx passed in the esophagus into the stomach. The scope was then placed through the pylo debbie and into the duodenum. The first and second portion of the duodenum appeared normal. The scope was then brought back the antrum this appeared mildly inflamed. A biopsies performed. The then retroflexed and there was a small hiatal hernia. GE junction was at 38 cm. There distal esophagus appeared inflamed. A biopsies performed. The proximal esophagus appeared normal. Scope withdrawn for patient. Next digital rectal exam was performed. This revealed no ebonized. Flexible Scope Was Then Placed Patient Anus and Passed throughout the Colon. Scope Was Placed in the Left Colon. Scope Could Not Be Advanced beyond the Transverse Colon Secondary to Tortuosity the bowel. At this point scope withdrawn. The visualize colon appeared normal. The distal transverse, descending and; franky eared normal however the bowel was quite tortuous. Scope was brought back the rectum and this appeared normal. Scope withdrawn for patient.
[2022-05-16] MEDS: TORSEMIDE 20 MG TAB PO SCH ×2 (14:59→16:28)
[2022-05-16] MEDS: PANTOPRAZOLE 40 MG/10 ML VIAL IVP SCH (14:59)
[2022-05-16] MEDS: SACUBITRIL/VALSARTAN 49 MG-51 MG TABLET PO SCH ×2 (15:00→21:26)
--- NOTE | 2022-05-16 17:10 | P.PN ---
Subjective Progress Note Date: 05/16/22 Patient was initially seen by Dr. Jayro Francis. Please refer to his note for details. Patient is a 76-year-old male, who came with syncopal episodes. Events did not appear seizures. His blood pressure was low in the 80s. He also has GI bleed. Patient underwent EGD and coloscopy today, which did not reveal significant abnormalities. Patient's was also present today by the bedside. Patient's states that he cannot walk more than 10-15 feet, as he feels he will pass out. When he walks, his oxygen saturation drops to 67%. He has significant dyspnea on exertion. He has fainted quite a few times. Objective - Vital Signs Vital signs: Vital Signs Temp 96.7 F L 05/16/22 11:40 Pulse 68 05/16/22 11:40 Resp 16 05/16/22 11:40 BP 95/53 05/16/22 11:40 Pulse Ox 96 05/16/22 11:40 FiO2 Intake & Output 05/15/22 05/16/22 05/16/22 18:59 06:59 18:59 Intake Total 360 120 200 Output Total 600 Balance -240 120 200 Weight 101.1 kg 99.1 kg Intake: IV 200 Oral 360 120 Output: Urine 600 Other: Voiding Method Toilet Toilet Toilet Urinal Urinal Urinal # Voids 1 1 # Bowel Movements 6 - Exam Patient's mental status, speech and language functions are normal. Cranial nerves are normal. Muscle strength normal. No ataxia. Abdomen soft nontender, no organomegaly, bowel sounds present. His chest is jovan ar to auscultation. S1 and S2 audible. - Labs CBC & Chem 7: 05/16/22 07:09 05/16/22 07:09 Labs: Abnormal Lab Results - Last 24 Hours (Table) 05/16/22 05/16/22 Range/Units 07:09 07:09 RBC 3.74 L (4.30-5.90) m/uL Hgb 8.9 L (13.0-17.5) gm/dL Hct 30.9 L (39.0-53.0) % MCH 23.8 L (25.0-35.0) pg MCHC 28.8 L (31.0-37.0) g/dL RDW 17.0 H (11.5-15.5) % Lymphocytes # 0.9 L (1.0-4.8) k/uL Sodium 134 L (137-145) mmol/L Chloride 97 L (98-107) mmol/L BUN 42 H (9-20) mg/dL Creatinine 1.36 H (0.66-1.25) mg/dL Glucose 100 H (74-99) mg/dL Assessment and Plan Assessment: * Syncopal episodes are due to his hypotensivie/hypovolemia. Blood pressures systolic as low as 80's. Has positive stool occult blood. Appears GI Bleed. Rule out cardiac since has heart failure with extertional dyspnea. Not seizure (he stated he passes out very briefly with quick regain on consciousness). * Repeated Falls due to hypotensive episodes * Positive stool occult blood. * Carotid stenosis over the right ICA, moderate degree 50-69% * Worsening of extertional dyspnea * History of GI bleed s/p colonoscopy * Atrial fibrillation on eliquis * Systolic Heart failure(EF 20-25% stenosis) s/p AICD * History of hypertension and on presentation is hypotensive Plan: No indication for EEG. Events are clearly syncopal. Patient was significantly hypotensive, anemic likely the cause of syncope. Patient underwent EGD and colonoscopy today. No significant source of bleeding identified. Suggest resuming Eliquis for stroke prevention related to atrial fibrillation, if medically/surgically cleared. Cardiology is on board for heart failure/syncopal episodes. Suggest decreasing dose of cardioactive medications for low blood pressure. May need midodrine, if remains orthostatic and symptomatic. Carotid duplex revealed 50-69% stenosis of the right ICA. Suggest follow-up with vascular surgery for surveillance outpatient. No indication for CTA this time. Patient does have moderate renal insufficiency. Neurologically clear.
--- NOTE | 2022-05-16 19:00 | NM ---
EXAMINATION TYPE: NM pul vent and perfuse DATE OF EXAM: 05/16/2022 COMPARISON: Chest radiograph 05/12/2021 HISTORY: Shortness of breath TECHNIQUE: Utilizing inhalation of 34.6 mCi Tc 99m DTPA aerosol and intravenous injection of 5 mCi o f Tc 99m MAA, ventilation and perfusion images are acquired post injection in multiple projections. FINDINGS: Clumping affecting within the lungs could be secondary to radiotracer separation. IMPRESSION: Nondiagnostic, Clumping artifact noted. Consider repeat examination.
[2022-05-16] MEDS: SPIRONOLACTONE 25 MG TAB PO SCH (21:29)
[2022-05-16] MEDS: METOPROLOL SUCCINATE (ER) 50 MG TAB.ER.24H PO SCH (21:29)
[2022-05-16] MEDS: TAMSULOSIN 0.4 MG CAP.ER.24H PO SCH (21:29)
[2022-05-16] MEDS: allopurinoL 300 MG TAB PO SCH (21:29)
--- NOTE | 2022-05-17 05:49 | P.PN ---
Subjective Progress Note Date: 05/16/22 Patient is a 76-year-old male with a known history of hypertension, hyperlipidemia, osteoarthritis, GERD, chronic atrial fibrillation on anticoagulation with Eliquis, nonsustained V. tach, cardiomyopathy status post ICD placement, chronic CHF with ejection fraction 20 to 25% and coronary artery disease and other multiple medical problems presents to ER with complaints of worsening shortness of breath and exertional dyspnea and multiple fainting spells at home. Yesterday he fell on the curb at home., Denied any hitting his head and loss of consciousness. Patient felt very weak and could not get up by himself. Patient was on follow-up with Dr. Multani and also had heart monitor at home and was told there were no arrhythmias noted in the event monitor. At home patient was hypotensive and also found his blood pressure at 79/42 and pulse rate is also low at the time and made him come to ER. Patient had recent GI work-up with colonoscopy and had residual bleeding with bright stool for about 4 to 5 days. Currently he is having dark stools for the past few days. No nausea or vomiting nausea or vomiting. No hematuria. No hematemesis. No abdominal pain. Denies any orthopnea or PND. Feels better at rest. No worsening leg swelling. Chest x-ray showed cardiomegaly correlate for mild venous congestion with small bilateral effusions. Otherwise considered interstitial pneumonitis or pneu monia. CT head showed degenerative changes showed degenerative changes with no acute hemorrhage or mass hemorrhage or mass-effect. EKG showed sinus rhythm with first-degree AV block with frequent PVCs. PVCs. Laboratory data showed WBC 4.4 hemoglobin 8.3 hemoglobin 8.4 hemoglobin 8.4 MCV 82.2 Sodium 137 potassium 4.2 chloride 101 bicarb is 27 BUN 61 and creatinine 1.6 to Troponin 3 negative and proBNP is 6270 Urinalysis is negative for infection Stool blood is positive. 05/13/2022 Patient is currently sitting in the chair comfortably. Denies any complaints of shortness of breath at rest. Otherwise patient does have exertional dyspnea and also feels like passing out after walking some distance in the hallway. Patient is also becoming hypoxic with ambulation. No complaints of chest pain. No leg swelling. No nausea vomiting abdominal pain or diarrhea. Laboratory data showed hemoglobin level dropped down to 7.8. General surgery has seen the patient and is planning for EGD early next week. FOBT positive. Other laboratory data showed WBC 4.5 platelets 140 21,035 potassium 4.2 chloride 101 bicarb is 27 BUN 57 creatinine 1.56. 05/14/2022 Patient is currently lying in bed. Awake alert oriented x3. Breathing status is better and patient is able to walk to the bathroom without much short of breath today. No complaints of chest pain. No fever no chills. No cough or sputum prod uction. Patient is tolerating oral diet. Otherwise patient has been having dizzy spells and syncopal episodes at home. Carotid duplex was ordered and neurology consult presentation.. Patient was se en by cardiology. Laboratories are reviewed. 05/15/2022 Patient is sitting in bedside. Awake alert and oriented x3. Shortness of breath is better today. No complaints of chest pain. patient is hypotensive. No complaints of dizziness. No nausea vomiting abdominal pain or diarrhea. Patient was seen by cardiology and neurology. Neurology recommends no further work-up at this time. CT angiogram of the head and neck once renal function stabilizes. Laboratory data showed WBC 4.4 hemoglobin 8.7 and platelets 167, sodium 134 potassium 4.8 chloride 102 bicarb is 27 BUN 15 creatinine 1.32 and blood sugar is 103. Patient is being continued on metolazone and Aldactone and also on Entresto. General surgery is planning for endoscope tomorrow. US carotid : Right carotid 50 to 69% stenosis . Less than 50% stenosis of left ICA. 05/16/2022 Patient is seen and evaluated in follow-up this morning early awaiting to undergo EGD/colonoscopy with general surgery today for GI bleed. Eliquis is on hold and hemoglobin is stable at 8.9. No active bleeding noted. Cardiology, neurology and general surgery following. Will review medications and make adjustments where necessary. Recommend follow up labs and monitor hemoglobin closely. Patient is afebrile and denies chest pain or worsening shortness of breath. Patient denies any feeling of dizziness or lightheadedness or syncopal episodes currently. Review of systems: Constitutional: No reports of fatigue, fever, or chills Cardiovascular: No reports of chest pain or palpitations Respiratory: No reports of worsening shortness of breath or cough GI: No reports of nausea, vomiting, or diarrhea : No reports of dysuria or retention Neurovascular: No reports of weakness, reports no episodes of syncope during admission All medications have been reviewed Active Medications Allopurinol (Allopurinol 300 Mg Tab) 300 mg PO [facility] Last Admin: 05/15/22 21:26 Dose: 300 mg Fluticasone Propionate (Fluticasone 50mcg/[place] Nasal 16gm) 2 spray EA NOSTRIL DAILY PRN PRN Reason: Allergy Symptoms Last Admin: 05/15/22 17:39 Dose: 2 spray Metolazone (Metolazone 2.5 Mg Tab) 2.5 mg PO Q72H PRN PRN Reason: Edema Metoprolol Succinate (Metoprolol Succinate (Er) 50 Mg Tab.Er.24h) 50 mg PO [facility] Naloxone HCl (Naloxone 0.4 Mg/Ml 1 Ml Vial) 0.2 mg IV Q2M PRN PRN Reason: Opioid Reversal Ondansetron HCl (Ondansetron 4 Mg/2 Ml Vial) 4 mg IVP Q8HR PRN PRN Reason: Nausea And Vomiting Pantoprazole Sodium (Pantoprazole 40 Mg/10 Ml Vial) 40 mg IVP DAILY [facility] Last Admin: 05/16/22 14:59 Dose: Not Given Sacubitril/Valsartan (Sacubitril/Valsartan 49 Mg-51 Mg Tablet) 1 each PO BID [facility] Last Admin: 05/16/22 15:00 Dose: Not Given Spironolactone (Spironolactone 25 Mg Tab) 25 mg PO [facility] Last Admin: 05/15/22 21:26 Dose: 25 mg Tamsulosin HCl (Tamsulosin 0.4 Mg Cap.Er.24h) 0.4 mg PO [facility] Last Admin: 05/15/22 21:26 Dose: 0.4 mg Torsemide (Torsemide 20 Mg Tab) 60 mg PO BID@0800,1600 [facility] Last Admin: 05/16/22 14:59 Dose: Not Given PHYSICAL EXAMINATION: Patient is sitting up in the chair, awake alert and oriented.. HEENT: Normocephalic. Neck is supple. Pupils reactive. Nostrils clear. Oral ca vity is moist. Neck reveals no JVD, carotid bruits, or thyromegaly. CHEST EXAMINATION: Trachea is central. Symmetrical expansion. Left basilar crackles. No wheezing. Nonlabored breathing.. CARDIAC: Normal S1, S2 with no gallops. No murmurs ABDOMEN: Soft. Bowel sounds normal. No organomegaly. No abdominal bruits. Extremities: reveal no edema. No clubbing or cyanosis Neurologically awake, alert, oriented x3 with well-coordinated movements. No focal deficits noted Skin: No rash or skin lesions. Psychiatric: Cooperative. Non-suicidal Musculoskeletal: No joint swelling or deformity. Normal range of motion. Assessment: Worsening shortness of breath and exertional dyspnea. Multifactorial due to symptomatic anemia and CHF. Dark-colored stools secondary to GI bleed likely upper. Recent colonoscopy showed no active bleeding. Multiple syncopal episodes. Workup including event monitor at home showed no arrhythmia. likley due to Hypotension, CHF and Anemia/GI bleed Right carotid 50 to 69% stenosis, need outpatient vascular surgery follow up Acute on Chronic CHF with systolic dysfunction ejection fraction 20-25%. Chronic atrial fibrillation on anticoagulant with eliquis which is on hold for gi bleed Cardiomyopathy status post ICD placement Coronary artery disease Hypertension Hyperlipidemia DVT prophylaxis with SCDs GI prophylaxis full code Plan: Patient will be continued on telemetry monitoring. Continue with metolazone and Aldactone. 2-D echocardiogram showing EF of 20-25% with cardiology and neurology following. Surgery following and patient is scheduled to undergo EGD/colonoscopy today and will await report. Hemoglobin is 8.9 today with no active bleeding noted. Recommend to monitor H&H. Continue with IV Protonix Eliquis currently on hold and will discuss with cardiology and surgery about resuming after endoscopy Continue with aspirin, metoprolol and entresto and other home medications and follow closely. Recommend decreasing the dose of metoprolol. Restricted on how much to titrate given HF history and recent EF. Neurology evaluated the patient due to recurrent episodes of syncopal spells, recommending resuming eliquis when clear and outpatient follow up with vascular surgery. Recommend repeat labs Due to multiple complex medical issues, prognosis is guarded. The impression and plan of care has been dictated by Darlene Green, Nurse Practitioner as directed. Dr. Geoff MD I have performed a history and examination and MDM of this patient, discussed the same with the dictator, and agree with the dictator's assessment and plan as written ,documented as a scribe. Based on total visit time, I have performed more than 50% of the visit. Objective - Vital Signs Vital signs: Vital Signs Temp 98.2 F 05/16/22 08:30 Pulse 60 05/16/22 08:30 Resp 17 05/16/22 08:30 BP 102/59 05/16/22 08:30 Pulse Ox 100 05/16/22 08:30 FiO2 Intake & Output 05/15/22 05/16/22 05/16/22 18:59 06:59 18:59 Intake Total 360 120 Output Total 600 Balance -240 120 Weight 101.1 kg 99.1 kg Intake: Oral 360 120 Output: Urine 600 Other: Voiding Method Toilet Toilet Urinal Urinal # Voids 1 # Bowel Movements 6 - Labs CBC & Chem 7: 05/16/22 07:09 05/16/22 07:09 Labs: Abnormal Lab Results - Last 24 Hours (Table) 05/16/22 05/16/22 Range/Units 07:09 07:09 RBC 3.74 L (4.30-5.90) m/uL Hgb 8.9 L (13.0-17.5) gm/dL Hct 30.9 L (39.0-53.0) % MCH 23.8 L (25.0-35.0) pg MCHC 28.8 L (31.0-37.0) g/dL RDW 17.0 H (11.5-15.5) % Lymphocytes # 0.9 L (1.0-4.8) k/uL Sodium 134 L (137-145) mmol/L Chloride 97 L (98-107) mmol/L BUN 42 H (9-20) mg/dL Creatinine 1.36 H (0.66-1.25) mg/dL Glucose 100 H (74-99) mg/dL
[2022-05-17] MEDS: PANTOPRAZOLE 40 MG TABLET PO SCH (10:50)
[2022-05-17] MEDS: TORSEMIDE 20 MG TAB PO SCH ×2 (10:51→17:22)
[2022-05-17] MEDS: SACUBITRIL/VALSARTAN 49 MG-51 MG TABLET PO SCH ×2 (10:51→21:11)
--- NOTE | 2022-05-17 11:59 | P.PN ---
Subjective This pleasant 76-year-old gentleman who follows with Dr. Reid in the office. He has a past history of ischemic cardiomyopathy, status post AICD, CAD with 50-60% lesion in the mid LAD and mild to moderate disease of the RCA noted on cath from 2018, hypertension, hyperlipidemia, permanent atrial fibrillation on Eliquis. Presented to the hospital with complaints of syncopal episode. Patient seen and examined at bedside, in the bedside chair no acute distress. Denies any chest pain. Some shortness of breath with ambulation. Denies any bleeding. Denies any lightheadedness, dizziness. Overall he states he feels better than prior to admission. ELiquis on hold. Patient underwent EGD yesterday which revealed second portion of the duodenum first portion appeared normal. Mild inflammation. Scope could not be advanced beyond the transverse colon. Meds: Metoprolol succinate 100 mg nightly, Entresto 49 mg51 mg twice a day, spironolactone 25 mg daily, torsemide 60 mg twice a day BP 91/51, heart rate 74, afebrile, oxygen saturations 90% room air GENERAL: Well-appearing, well-nourished and in no acute distress. NECK: Supple without JVD LUNGS: Breath sounds clear to auscultation bilaterally. Respiration equal and unlabored. No wheezes, rales or rhonchi. HEART: Irregular rate and rhythm without murmurs, rubs or gallops. S1 and S2 heard. EXTREMITIES: Normal range of motion, no edema. No clubbing or cyanosis. Peripheral pulses intact. ASSESSMENT Recurrent Syncope, appears non-cardiac in etiology Shortness of breath Anemia with dark color stools Hypotension Acute Kidney Injury Ischemic cardiomyopathy status post AICD Chronic heart failure with reduced ejection fraction Permanent atrial fibrillation on Eliquis outpatient Mild to moderate coronary artery disease History of Hypertension Dyslipidemia PLAN Restart Eliquis if cleared by surgery. Continue current cardiac medications No further changes from a cardiology perspective Nurse Practitioner note has been reviewed, I agree with a documented findings and plan of care. Patient was seen and examined. Objective - Vital Signs Vital signs: Vital Signs Temp 97.7 F 05/17/22 04:00 Pulse 74 05/17/22 04:00 Resp 16 05/17/22 04:00 BP 91/51 05/17/22 04:00 Pulse Ox 98 05/17/22 04:00 FiO2 Intake & Output 05/16/22 05/17/22 05/17/22 18:59 06:59 18:59 Intake Total 200 240 250 Balance 200 240 250 Weight 99.4 kg Intake: IV 200 Oral 240 250 Other: Voiding Method Toilet Toilet Urinal Urinal # Voids 1 2 2 # Bowel Movements 1 - Labs CBC & Chem 7: 05/16/22 07:09 05/16/22 07:09
[2022-05-17 12:16] LABS: Anisocytosis Slight; Basophils % (A) 0 %; Eosinophils % (A) 1 %; HCT 32.3 % (39.0-53.0); HGB 9.1 gm/dL (13.0-17.5); Hypochromasia Marked; Lymphocytes % (A) 19 %; MCH 23.5 pg (25.0-35.0); MCHC 28.2 g/dL (31.0-37.0); MCV 83.1 fL (80.0-100.0); Mean Platelet Volume 8.4; Monocytes # (A) 0.3 k/uL (0-1.0); Monocytes % (A) 5 %; Neutrophils # (A) 3.9 k/uL (1.3-7.7); Neutrophils % (A) 73 %; Platelet Count 180 k/uL (150-450); RBC 3.88 m/uL (4.30-5.90); WBC 5.4 k/uL (3.8-10.6)
[2022-05-17 12:28] LABS: Calcium 9.2 mg/dL (8.4-10.2); Potassium 5.6 mmol/L (3.5-5.1)
--- NOTE | 2022-05-17 12:29 | P.PN ---
Progress Note - Text Progress Note Date: 05/17/22 Patient remains stable. His hemoglobin stable in the 8.9 range he has had no further GI bleed. He underwent endoscopy yesterday. On exam vital signs are stable. Abdomen soft. Anemia with no significant GI bleed. Patient will be discharged home per the medical service.
[2022-05-17] MEDS ORDERED: IPRATROPIUM-ALBUTEROL 3 ML NEB INHALATION PRN (14:53)
[2022-05-17] MEDS: IPRATROPIUM-ALBUTEROL 3 ML NEB INHALATION SCH (20:42)
--- NOTE | 2022-05-17 21:07 | P.PN ---
Subjective Progress Note Date: 05/17/22 Patient is a 76-year-old male with a known history of hypertension, hyperlipidemia, osteoarthritis, GERD, chronic atrial fibrillation on anticoagulation with Eliquis, nonsustained V. tach, cardiomyopathy status post ICD placement, chronic CHF with ejection fraction 20 to 25% and coronary artery disease and other multiple medical problems presents to ER with complaints of worsening shortness of breath and exertional dyspnea and multiple fainting spells at home. Yesterday he fell on the curb at home., Denied any hitting his head and loss of consciousness. Patient felt very weak and could not get up by himself. Patient was on follow-up with Dr. Multani and also had heart monitor at home and was told there were no arrhythmias noted in the event monitor. At home patient was hypotensive and also found his blood pressure at 79/42 and pulse rate is also low at the time and made him come to ER. Patient had recent GI work-up with colonoscopy and had residual bleeding with bright stool for about 4 to 5 days. Currently he is having dark stools for the past few days. No nausea or vomiting nausea or vomiting. No hematuria. No hematemesis. No abdominal pain. Denies any orthopnea or PND. Feels better at rest. No worsening leg swelling. Chest x-ray showed cardiomegaly correlate for mild venous congestion with small bilateral effusions. Otherwise considered interstitial pneumonitis or pneu monia. CT head showed degenerative changes showed degenerative changes with no acute hemorrhage or mass hemorrhage or mass-effect. EKG showed sinus rhythm with first-degree AV block with frequent PVCs. PVCs. Laboratory data showed WBC 4.4 hemoglobin 8.3 hemoglobin 8.4 hemoglobin 8.4 MCV 82.2 Sodium 137 potassium 4.2 chloride 101 bicarb is 27 BUN 61 and creatinine 1.6 to Troponin 3 negative and proBNP is 6270 Urinalysis is negative for infection Stool blood is positive. 05/13/2022 Patient is currently sitting in the chair comfortably. Denies any complaints of shortness of breath at rest. Otherwise patient does have exertional dyspnea and also feels like passing out after walking some distance in the hallway. Patient is also becoming hypoxic with ambulation. No complaints of chest pain. No leg swelling. No nausea vomiting abdominal pain or diarrhea. Laboratory data showed hemoglobin level dropped down to 7.8. General surgery has seen the patient and is planning for EGD early next week. FOBT positive. Other laboratory data showed WBC 4.5 platelets 140 21,035 potassium 4.2 chloride 101 bicarb is 27 BUN 57 creatinine 1.56. 05/14/2022 Patient is currently lying in bed. Awake alert oriented x3. Breathing status is better and patient is able to walk to the bathroom without much short of breath today. No complaints of chest pain. No fever no chills. No cough or sputum prod uction. Patient is tolerating oral diet. Otherwise patient has been having dizzy spells and syncopal episodes at home. Carotid duplex was ordered and neurology consult presentation.. Patient was se en by cardiology. Laboratories are reviewed. 05/15/2022 Patient is sitting in bedside. Awake alert and oriented x3. Shortness of breath is better today. No complaints of chest pain. patient is hypotensive. No complaints of dizziness. No nausea vomiting abdominal pain or diarrhea. Patient was seen by cardiology and neurology. Neurology recommends no further work-up at this time. CT angiogram of the head and neck once renal function stabilizes. Laboratory data showed WBC 4.4 hemoglobin 8.7 and platelets 167, sodium 134 potassium 4.8 chloride 102 bicarb is 27 BUN 15 creatinine 1.32 and blood sugar is 103. Patient is being continued on metolazone and Aldactone and also on Entresto. General surgery is planning for endoscope tomorrow. US carotid : Right carotid 50 to 69% stenosis . Less than 50% stenosis of left ICA. 05/16/2022 Patient is seen and evaluated in follow-up this morning early awaiting to undergo EGD/colonoscopy with general surgery today for GI bleed. Eliquis is on hold and hemoglobin is stable at 8.9. No active bleeding noted. Cardiology, neurology and general surgery following. Will review medications and make adjustments where necessary. Recommend follow up labs and monitor hemoglobin closely. Patient is afebrile and denies chest pain or worsening shortness of breath. Patient denies any feeling of dizziness or lightheadedness or syncopal episodes currently. 05/17/2021 Patient is seen in follow up and EGD was done with no active bleeding noted. Hemoglobin is 9.1 today. Patient continues with shortness of breath with exertion. Patient walked the halls today and 02 saturations dropped to the 60's. Patient is afebrile and denies chest pain or shortness of breath at rest. Patient had VQ scan and was showing low probability of PE and likely COPD change s. Review of systems: Constitutional: No reports of fatigue, fever, or chills Cardiovascular: No reports of chest pain or palpitations Respiratory: No reports of worsening shortness of breath or cough GI: No reports of nausea, vomiting, or diarrhea : No reports of dysuria or retention Neurovascular: No reports of weakness, reports no episodes of syncope during admission All medications have been reviewed Active Medications Albuterol/Ipratropium (Ipratropium-Albuterol 3 Ml Neb) 3 ml INHALATION RT-TID PRN PRN Reason: Shortness Of Breath Or Wheezing Albuterol/Ipratropium (Ipratropium-Albuterol 3 Ml Neb) 3 ml INHALATION RT-TID [facility] Last Admin: 05/17/22 20:42 Dose: Not Given Allopurinol (Allopurinol 300 Mg Tab) 300 mg PO [facility] Last Admin: 05/16/22 21:29 Dose: 300 mg Apixaban (Apixaban 5 Mg Tab) 5 mg PO BID [facility]; Protocol Fluticasone Propionate (Fluticasone 50mcg/[place] Nasal 16gm) 2 spray EA NOSTRIL DAILY PRN PRN Reason: Allergy Symptoms Last Admin: 05/15/22 17:39 Dose: 2 spray Metolazone (Metolazone 2.5 Mg Tab) 2.5 mg PO Q72H PRN PRN Reason: Edema Metoprolol Succinate (Metoprolol Succinate (Er) 50 Mg Tab.Er.24h) 50 mg PO [facility] Last Admin: 05/16/22 21:29 Dose: 50 mg Naloxone HCl (Naloxone 0.4 Mg/Ml 1 Ml Vial) 0.2 mg IV Q2M PRN PRN Reason: Opioid Reversal Ondansetron HCl (Ondansetron 4 Mg/2 Ml Vial) 4 mg IVP Q8HR PRN PRN Reason: Nausea And Vomiting Pantoprazole Sodium (Pantoprazole 40 Mg Tablet) 40 mg PO AC-BRKFST [facility] Last Admin: 05/17/22 10:50 Dose: 40 mg Sacubitril/Valsartan (Sacubitril/Valsartan 49 Mg-51 Mg Tablet) 1 each PO BID [facility] Last Admin: 05/17/22 10:51 Dose: Not Given Spironolactone (Spironolactone 25 Mg Tab) 25 mg PO HS [facility] Last Admin: 05/16/22 21:29 Dose: 25 mg Tamsulosin HCl (Tamsulosin 0.4 Mg Cap.Er.24h) 0.4 mg PO HS [facility] Last Admin: 05/16/22 21:29 Dose: 0.4 mg Torsemide (Torsemide 20 Mg Tab) 60 mg PO BID@0800,1600 [facility] Last Admin: 05/17/22 17:22 Dose: 60 mg PHYSICAL EXAMINATION: Patient is sitting up in the chair, awake alert and oriented.. HEENT: Normocephalic. Neck is supple. Pupils reactive. Nostrils clear. Oral cavity is moist. Neck reveals no JVD, carotid bruits, or thyromegaly. CHEST EXAMINATION: Trachea is central. Symmetrical expansion. Left basilar c rackles. No wheezing. Nonlabored breathing.. CARDIAC: Normal S1, S2 with no gallops. No murmurs ABDOMEN: Soft. Bowel sounds normal. No organomegaly. No abdominal bruits. Extremities: reveal no edema. No clubbing or cyanosis Neurologically awake, alert, oriented x3 with well-coordinated movements. No focal deficits noted Skin: No rash or skin lesions. Psychiatric: Cooperative. Non-suicidal Musculoskeletal: No joint swelling or deformity. Normal range of motion. Assessment: Worsening shortness of breath and exertional dyspnea. Multifactorial due to symptomatic anemia and CHF. Dark-colored stools secondary to GI bleed likely upper. Recent colonoscopy showed no active bleeding. Multiple syncopal episodes. Workup including event monitor at home showed no arrhythmia. likley due to Hypotension, CHF and Anemia/GI bleed Right carotid 50 to 69% stenosis, need outpatient vascular surgery follow up Acute on Chronic CHF with systolic dysfunction ejection fraction 20-25%. Chronic atrial fibrillation on anticoagulant with eliquis which is on hold for gi bleed Cardiomyopathy status post ICD placement Coronary artery disease Hypertension Hyperlipidemia DVT prophylaxis with SCDs GI prophylaxis full code Plan: Patient will be continued on telemetry monitoring. Continue with metolazone and Aldactone. 2-D echocardiogram showing EF of 20-25% with cardiology and neurology following. Surgery following and patient underwent EGD/colonoscopy with no active bleeding noted. Will discuss about resuming anticoagulation. Colonoscopy not done as colon is tortous. Biopsies obtained on EGD. Hemoglobin is 9.1 today with no active bleeding noted. Recommend to monitor H&H. Continue with Protonix and will resume eliquis Continue with aspirin, metoprolol and entresto and other home medications and follow closely. Recommend decreasing the dose of metoprolol. Restricted on how much to titrate given HF history and recent EF. Neurology evaluated the patient due to recurrent episodes of syncopal spells, recommending resuming eliquis when clear and outpatient follow up with vascular surgery. Recommend repeat labs Will discuss with social work and may perform home 02 eval as patient was walked in the sellers today and became extremely dyspneic and pulse ox dropped into the 60's quickly. Due to multiple complex medical issues, prognosis is guarded. Possible discharge in 24-48 hours. The impression and plan of care has been dictated by Darlene Green, Nurse Practitioner as directed. Dr. Geoff MD I have performed a history and examination and MDM of this patient, discussed the same with the dictator, and agree with the dictator's assessment and plan as written ,documented as a scribe. Based on total visit time, I have performed more than 50% of the visit. Objective - Vital Signs Vital signs: Vital Signs Temp 97.7 F 05/17/22 04:00 Pulse 74 05/17/22 04:00 Resp 16 05/17/22 04:00 BP 91/51 05/17/22 04:00 Pulse Ox 98 05/17/22 04:00 FiO2 Intake & Output 05/16/22 05/17/22 05/17/22 18:59 06:59 18:59 Intake Total 200 240 250 Balance 200 240 250 Weight 99.4 kg Intake: IV 200 Oral 240 250 Other: Voiding Method Toilet Toilet Urinal Urinal # Voids 1 2 2 # Bowel Movements 1 - Labs CBC & Chem 7: 05/17/22 11:15 05/17/22 11:15
[2022-05-17] MEDS: allopurinoL 300 MG TAB PO SCH (21:11)
[2022-05-17] MEDS: TAMSULOSIN 0.4 MG CAP.ER.24H PO SCH (21:11)
[2022-05-17] MEDS: SPIRONOLACTONE 25 MG TAB PO SCH (21:12)
[2022-05-17] MEDS: METOPROLOL SUCCINATE (ER) 50 MG TAB.ER.24H PO SCH (21:12)
[2022-05-17] MEDS: APIXABAN 5 MG TAB PO SCH (21:12)
[2022-05-18] MEDS: PANTOPRAZOLE 40 MG TABLET PO SCH (06:31)
[2022-05-18 08:14] VITALS: BP 81/36; PULSE 76; RESP 18; TEMP 98.2
[2022-05-18] MEDS: TORSEMIDE 20 MG TAB PO SCH (08:15)
[2022-05-18] MEDS: SACUBITRIL/VALSARTAN 49 MG-51 MG TABLET PO SCH (08:15)
[2022-05-18] MEDS: APIXABAN 5 MG TAB PO SCH (08:15)
[2022-05-18] MEDS: IPRATROPIUM-ALBUTEROL 3 ML NEB INHALATION SCH ×2 (08:42→12:10)
--- NOTE | 2022-05-18 08:43 | P.PN ---
Subjective Progress Note Date: 05/17/22 05/17/2022: Patient was seen for a follow-up. Patient is sitting in the recliner, in no distress. He is alert and awake. He offers no complaints. Patient denies any headache, no dizziness, no numbness tingling or weakness. Telemetry monitoring showing V-paced rhythm, with some PVCs with heart rate 40s to 50s. 05/16/2022: Patient was initially seen by Dr. Jayro Francis. Please refer to his note for details. Patient is a 76-year-old male, who came with syncopal episodes. Events did not appear seizures. His blood pressure was low in the 80s. He also has GI bleed. Patient underwent EGD and coloscopy today, which did not reveal significant abnormalities. Patient's was also present today by the bedside. Patient's states that he cannot walk more than 10-15 feet, as he feels he will pass out. When he walks, his oxygen saturation drops to 67%. He has significant dyspnea on exertion. He has fainted quite a few times. Objective - Vital Signs Vital signs: Vital Signs Temp 97.7 F 05/17/22 04:00 Pulse 74 05/17/22 04:00 Resp 16 05/17/22 04:00 BP 91/51 05/17/22 04:00 Pulse Ox 98 05/17/22 04:00 FiO2 Intake & Output 05/16/22 05/17/22 05/17/22 18:59 06:59 18:59 Intake Total 200 240 250 Balance 200 240 250 Weight 99.4 kg Intake: IV 200 Oral 240 250 Other: Voiding Method Toilet Toilet Urinal Urinal # Voids 1 2 2 # Bowel Movements 1 - Exam Patient's mental status, speech and language functions are normal. Patient knows it is April and the year is 2021 and that he is in [facility]. Cranial nerves are normal. Visual house are full, face is symmetric and tongue protrudes the midline. Muscle strength normal. No pronator drift. No ataxia. Abdomen soft nontender, no organomegaly, bowel sounds present. His chest is clear to auscultation. S1 and S2 audible. Patient has mild peripheral edema. Legs are hyperpigmented. - Labs CBC & Chem 7: 05/17/22 11:15 07/26/22 11:15 Labs: Abnormal Lab Results - Last 24 Hours (Table) 05/17/22 05/17/22 Range/Units 11:15 11:15 RBC 3.88 L (4.30-5.90) m/uL Hgb 9.1 L (13.0-17.5) gm/dL Hct 32.3 L (39.0-53.0) % MCH 23.5 L (25.0-35.0) pg MCHC 28.2 L (31.0-37.0) g/dL RDW 17.0 H (11.5-15.5) % Sodium 134 L (137-145) mmol/L Potassium 5.6 H (3.5-5.1) mmol/L Chloride 97 L (98-107) mmol/L BUN 44 H (9-20) mg/dL Creatinine 1.56 H (0.66-1.25) mg/dL Glucose 103 H (74-99) mg/dL Assessment and Plan Assessment: * Syncopal episodes likely due to hypotensivie/hypovolemia. Blood pressures systolic was as low as 80's. Has positive stool occult blood. Appears GI Bleed. Rule out cardiac since has heart failure with extertional dyspnea. Not seizure (he stated he passes out very briefly with quick regain on consciousness). * Repeated Falls due to hypotensive episodes * Positive stool occult blood. * Carotid stenosis over the right ICA, moderate degree 50-69% * Worsening of extertional dyspnea * History of GI bleed s/p colonoscopy * Atrial fibrillation on eliquis * Systolic Heart failure(EF 20-25% stenosis) s/p AICD * History of hypertension and on presentation is hypotensive Plan: No indication for EEG. Events are clearly syncopal. Patient was significantly hypotensive, anemic likely the cause of syncope. Patient underwent EGD and colonoscopy 05/16/2022. No significant source of bleeding identified. Biopsy revealed mild gastritis and esophagitis. Suggest resuming Eliquis for stroke prevention related to atrial fibrillation, if medically/surgically cleared. Cardiology is on board for heart failure/syncopal episodes. Suggest decreasing dose of cardioactive medications for low blood pressure. May need midodrine, if remains orthostatic and symptomatic. Carotid duplex revealed 50-69% stenosis of the right ICA. Suggest follow-up with vascular surgery for surveillance outpatient. No indication for CTA this time. Patient does have moderate renal insufficiency. Neurologically clear.
[2022-05-18 09:36] LABS: Anisocytosis Slight; Basophils % (A) 0 %; Eosinophils # (A) 0.1 k/uL (0-0.7); Eosinophils % (A) 1 %; HCT 31.5 % (39.0-53.0); HGB 9.1 gm/dL (13.0-17.5); Hypochromasia Marked; Lymphocytes # (A) 0.8 k/uL (1.0-4.8); Lymphocytes % (A) 17 %; MCH 23.6 pg (25.0-35.0); MCHC 28.7 g/dL (31.0-37.0); MCV 82.3 fL (80.0-100.0); Mean Platelet Volume 8.8; Monocytes # (A) 0.3 k/uL (0-1.0); Monocytes % (A) 5 %; Neutrophils # (A) 3.7 k/uL (1.3-7.7); Neutrophils % (A) 75 %; Platelet Count 173 k/uL (150-450); RBC 3.83 m/uL (4.30-5.90); RDW 17.1 % (11.5-15.5); WBC 4.9 k/uL (3.8-10.6)
[2022-05-18 10:09] LABS: Albumin 4.3 g/dL (3.5-5.0); Magnesium 2.3 mg/dL (1.6-2.3); Potassium 4.7 mmol/L (3.5-5.1); Total Bilirubin 0.7 mg/dL (0.2-1.3); Total Protein 7.1 g/dL (6.3-8.2)
--- NOTE | 2022-05-18 12:02 | P.PN ---
Progress Note - Text Progress Note Date: 05/18/22 Patient [place] stable. There is no incision bleed. His he will was 9.1. Abdomen soft nontender We will sign off please consult if needed.
--- NOTE | 2022-05-18 12:26 | P.PN ---
Subjective This pleasant 76-year-old gentleman who follows with Dr. Reid in the office. He has a past history of ischemic cardiomyopathy, status post AICD, CAD with 50-60% lesion in the mid LAD and mild to moderate disease of the RCA noted on cath from 2018, hypertension, hyperlipidemia, permanent atrial fibrillation on Eliquis. Presented to the hospital with complaints of syncopal episode. Patient seen and examined at bedside, in the bedside chair no acute distress. Denies any chest pain or shortness of breath. Denies any bleeding. Denies any lightheadedness, dizziness. Overall he states he feels better than prior to admission. ELiquis on hold. Patient underwent EGD yesterday which revealed second portion of the duodenum first portion appeared normal. Mild inflammation. Scope could not be advanced beyond the transverse colon. Meds: Metoprolol succinate 100 mg nightly, Entresto 49 mg51 mg twice a day, spironolactone 25 mg daily, torsemide 60 mg twice a day BP 81/36, heart rate 76, afebrile, oxygen saturations 97% room air GENERAL: Well-appearing, well-nourished and in no acute distress. NECK: Supple without JVD LUNGS: Breath sounds clear to auscultation bilaterally. Respiration equal and unlabored. No wheezes, rales or rhonchi. HEART: Irregular rate and rhythm without murmurs, rubs or gallops. S1 and S2 heard. EXTREMITIES: Normal range of motion, no edema. No clubbing or cyanosis. Peripheral pulses intact. ASSESSMENT Recurrent Syncope, appears non-cardiac in etiology Shortness of breath Anemia with dark color stools Hypotension Acute Kidney Injury Ischemic cardiomyopathy status post AICD Chronic heart failure with reduced ejection fraction Permanent atrial fibrillation on Eliquis outpatient Mild to moderate coronary artery disease History of Hypertension Dyslipidemia PLAN Eliquis restarted per surgery Decrease metoprolol to 25mg nightly Continue current cardiac medications No further changes from a cardiology perspective Follow up outpatient with Dr. Reid Nurse Practitioner note has been reviewed, I agree with a documented findings and plan of care. Patient was seen and examined. Objective - Vital Signs Vital signs: Vital Signs Temp 98.2 F 05/18/22 08:00 Pulse 76 05/18/22 08:00 Resp 18 05/18/22 08:00 BP 81/36 05/18/22 08:00 Pulse Ox 97 05/18/22 08:00 FiO2 Intake & Output 05/17/22 05/18/22 05/18/22 18:59 06:59 18:59 Intake Total 700 240 Output Total 600 1600 800 Balance 100 -1360 -800 Weight 98.9 kg Intake: Oral 700 240 Output: Urine 600 1600 800 Other: Voiding Method Toilet Toilet Urinal Urinal # Voids 2 1 # Bowel Movements 1 - Labs CBC & Chem 7: 05/18/22 09:02 05/18/22 08:46 Labs: Abnormal Lab Results - Last 24 Hours (Table) 05/17/22 05/17/22 05/18/22 Range/Units 11:15 11:15 08:46 RBC 3.88 L (4.30-5.90) m/uL Hgb 9.1 L (13.0-17.5) gm/dL Hct 32.3 L (39.0-53.0) % MCH 23.5 L (25.0-35.0) pg MCHC 28.2 L (31.0-37.0) g/dL RDW 17.0 H (11.5-15.5) % Lymphocytes # (1.0-4.8) k/uL Sodium 134 L 135 L (137-145) mmol/L Potassium 5.6 H (3.5-5.1) mmol/L Chloride 97 L (98-107) mmol/L BUN 44 H 45 H (9-20) mg/dL Creatinine 1.56 H 1.68 H (0.66-1.25) mg/dL Glucose 103 H 163 H (74-99) mg/dL 05/18/22 Range/Units 09:02 RBC 3.83 L (4.30-5.90) m/uL Hgb 9.1 L (13.0-17.5) gm/dL Hct 31.5 L (39.0-53.0) % MCH 23.6 L (25.0-35.0) pg MCHC 28.7 L (31.0-37.0) g/dL RDW 17.1 H (11.5-15.5) % Lymphocytes # 0.8 L (1.0-4.8) k/uL Sodium (137-145) mmol/L Potassium (3.5-5.1) mmol/L Chloride (98-107) mmol/L BUN (9-20) mg/dL Creatinine (0.66-1.25) mg/dL Glucose (74-99) mg/dL
[2022-05-18] MEDS ORDERED: METOPROLOL SUCCINATE (ER) 25 MG TAB.ER.24H PO SCH (21:00)
--- NOTE | 2022-05-19 15:04 | P.DS ---
Providers Date of admission: 05/12/22 13:01 Expected date of discharge: 05/18/22 Attending physician: Radha Otoole Consults: 05/13/22 09:43 Consult Physician Urgent Consulting Provider: Colt Lpoez Consult Reason/Comments: acute gi bleed, on thinners Do you want consulting provider notified?: Yes 05/13/22 22:48 Consult Physician Routine Consulting Provider: Brett Reid Consult Reason/Comments: Syncope, falls Do you want consulting provider notified?: Yes, Notify in am 05/14/22 18:52 Consult Physician Urgent Consulting Provider: Jayro Francis Consult Reason/Comments: syncope Do you want consulting provider notified?: Yes Primary care physician: Mago Lazo Hospital Course: Final diagnosis Worsening shortness of breath and exertional dyspnea. Multifactorial due to symptomatic anemia and CHF. Dark-colored stools secondary to GI bleed likely upper. Recent colonoscopy showed no active bleeding. Multiple syncopal episodes. Workup including event monitor at home showed no arrhythmia. likley due to Hypotension, CHF and Anemia/GI bleed Right carotid 50 to 69% stenosis, need outpatient vascular surgery follow up Acute on Chronic CHF with systolic dysfunction ejection fraction 20-25%. Chronic atrial fibrillation Nonischemic Cardiomyopathy status post ICD placement Coronary artery disease Hypertension Hyperlipidemia DVT prophylaxis GI prophylaxis full code Discharge disposition Patient is being discharged in a stable condition with guarded prognosis to home. Patient will follow-up with Dr. Lazo in the outpatient setting upon discharge. Patient is to follow-up closely with cardiology and Gen. surgery as scheduled. Patient has been resumed on anticoagulant and maximizing medical management. Patient will require home oxygen to manage CHF. Total time taken is greater than 35 minutes. Hospital course This is a 76-year-old male who was recently admitted with syncope and shortness of breath. Patient reports he has been having multiple syncopal events with walking minimal steps multiple times daily and will feel extreme short of breath and then start to feel lightheaded and legs giving out and will subsequently fall and pass out for a brief period of time. Patient reports he did have one episode of being incontinent most recently during this fall. Patient was evaluated by neurology along with cardiology and there was also questionable GI bleed and was evaluated by general surgery and underwent EGD and attempted colonoscopy. Colon was found to be tortious and colonoscopy was not performed an EGD was done with multiple biopsies obtained and patient will follow-up in the outpatient setting. Patient was tested for home oxygen and will require home oxygen at 2 L to manage his CHF. Patient reports to feeling better and would like to go home. Discussed medications with recording studio setup worker Dr. Reid and adjustments have been made and patient will follow-up with cardiology in the next 1-2 weeks. Patient will follow-up closely with his recording studio setup worker Dr. Reid this week. Currently no reports of chest pain, shortness of breath, or palpitations. Patient is afebrile. No reports of nausea or vomiting and patient is tolerating diet. Patient will be discharged home today. Guarded prognosis. Physical exam: Gen: This is a 76-year-old male awake, alert and oriented 3 HEENT: Head is atraumatic, normocephalic. Pupils equal, round. Sclerae is anicteric. NECK: Supple. No JVD. No lymphadenopathy. No thyromegaly. LUNGS: Clear to auscultation. No wheezes or rhonchi. No intercostal retractions. HEART: Regular rate and rhythm. No murmur. ABDOMEN: Soft. Bowel sounds are present. No masses. No tenderness. EXTREMITIES: No pedal edema. No calf tenderness. NEUROLOGICAL: Patient is awake, alert and oriented x3. Cranial nerves 2 through 12 are grossly intact. Please refer to medication reconciliation sheet for a list of medications. The impression and plan of care has been dictated by Darlene Green, Nurse Practitioner as directed. Dr. Josh MD I have performed a history and examination and MDM of this patient, discussed the same with the dictator, and agree with the dictator's assessment and plan as written ,documented as a scribe. Based on total visit time, I have performed more than 50% of the visit. Patient Condition at Discharge: Stable Plan - Discharge Summary Discharge Rx Participant: No New Discharge Prescriptions: New Spironolactone [Aldactone] 12.5 mg PO DAILY 30 Days #15 tablet Metoprolol Succinate (ER) [Toprol XL] 25 mg PO HS 30 Days #30 tab Continue Simvastatin [Zocor] 20 mg PO HS Omeprazole 20 mg PO HS allopurinoL [Zyloprim] 300 mg PO HS Apixaban [Eliquis] 5 mg PO BID Fluticasone/Umeclidin/Vilanter [Trelegy Ellipta 100-62.5-25] 1 puff INHALATION RT-DAILY Sacubitril/Valsartan [Entresto 49 mg-51 mg Tablet] 1 tab PO BID Torsemide [Demadex] 60 mg PO BID@0800,1600 Tamsulosin HCl [Flomax] 0.4 mg PO HS Albuterol Sulfate [Proair Hfa] 2 puff INHALATION RT-Q6H PRN PRN Reason: Shortness Of Breath metOLazone 2.5 mg PO DIRECTED PRN PRN Reason: Edema Discontinued Metoprolol Succinate [Toprol XL] 100 mg PO HS Spironolactone [Aldactone] 25 mg PO HS Discharge Medication List Omeprazole 20 mg PO HS 01/29/18 [History] Simvastatin [Zocor] 20 mg PO HS 01/29/18 [History] allopurinoL [Zyloprim] 300 mg PO HS 01/29/18 [History] Apixaban [Eliquis] 5 mg PO BID 06/15/20 [History] Albuterol Sulfate [Proair Hfa] 2 puff INHALATION RT-Q6H PRN 01/13/22 [History] Fluticasone/Umeclidin/Vilanter [Trelegy Ellipta 100-62.5-25] 1 puff INHALATION RT-DAILY 01/13/22 [History] Tamsulosin HCl [Flomax] 0.4 mg PO HS 01/13/22 [History] Torsemide [Demadex] 60 mg PO BID@0800,1600 01/13/22 [History] Sacubitril/Valsartan [Entresto 49 mg-51 mg Tablet] 1 tab PO BID 05/12/22 [History] metOLazone 2.5 mg PO DIRECTED PRN 05/12/22 [History] Metoprolol Succinate (ER) [Toprol XL] 25 mg PO HS 30 Days #30 tab 05/18/22 [Rx] Spironolactone [Aldactone] 12.5 mg PO DAILY 30 Days #15 tablet 05/18/22 [Rx] Follow up Appointment(s)/Referral(s): Brett Reid MD [STAFF PHYSICIAN] - 05/24/22 1:30 pm Cornejo Bria,Mac [NON-STAFF] - (call [facility] when you get home and they will deliver the concentrator to your home) Mago Lazo DO [Primary Care Provider] - 1-2 days (Please call to make an appointment.) Colt Lopez MD [STAFF PHYSICIAN] - 1 Week (Please call to make an appointment.) Ambulatory/Diagnostic Orders: Complete Blood Count w/diff [LAB.AMB] Time Frame: 3 Days, Location: None Selected Patient Instructions/Handouts: Heart Failure (DC) Activity/Diet/Wound Care/Special Instructions: Activity Limited until follow-up Follow-up with primary care provider on discharge Follow-up with cardiology outpatient Continue taking medications as prescribed Continue with oxygen supplementation Continue heart healthy diet Recommend repeat labs in the next 2-3 days Discharge Disposition: HOME SELF-CARE
== END 2022-05-18 14:15 | disposition home or self-care (01) | DRG 377 ==
LOC: EC 09:54 → 3SCARD 13:01
PROVIDERS: ADMIT Internal Medicine; ATTEND Internal Medicine
PROC: 0DJD8ZZ Inspection of Lower Intestinal Tract, Via Natural or Artificial Opening Endoscopic (ICD-10-PCS; principal; 2022-05-16 07:30)
PROC: 0DB78ZX Excision of Stomach, Pylorus, Via Natural or Artificial Opening Endoscopic, Diagnostic (ICD-10-PCS; principal; 2022-05-16 07:30)
PROC: 0DB58ZX Excision of Esophagus, Via Natural or Artificial Opening Endoscopic, Diagnostic (ICD-10-PCS; 2022-05-16 07:30)
DX: K29.71 Gastritis, unspecified, with bleeding (principal); I50.23 Acute on chronic systolic (congestive) heart failure; I48.21 Permanent atrial fibrillation; N17.9 Acute kidney failure, unspecified; I42.8 Other cardiomyopathies; I11.0 Hypertensive heart disease with heart failure; K21.01 Gastro-esophageal reflux disease with esophagitis, with bleeding; I44.0 Atrioventricular block, first degree; I65.23 Occlusion and stenosis of bilateral carotid arteries; J44.9 Chronic obstructive pulmonary disease, unspecified; K29.70 Gastritis, unspecified, without bleeding; I25.5 Ischemic cardiomyopathy; K44.9 Diaphragmatic hernia without obstruction or gangrene; D50.9 Iron deficiency anemia, unspecified; E78.5 Hyperlipidemia, unspecified; E86.1 Hypovolemia; I08.0 Rheumatic disorders of both mitral and aortic valves; I95.9 Hypotension, unspecified; I25.10 Atherosclerotic heart disease of native coronary artery without angina pectoris; Z86.010 Personal history of colon polyps; R09.02 Hypoxemia; Z79.01 Long term (current) use of anticoagulants; R29.6 Repeated falls; R32 Unspecified urinary incontinence; M19.90 Unspecified osteoarthritis, unspecified site; M10.9 Gout, unspecified; I49.3 Ventricular premature depolarization; Z86.16 Personal history of COVID-19; Z91.81 History of falling; Z79.899 Other long term (current) drug therapy; Z80.1 Family history of malignant neoplasm of trachea, bronchus and lung; Z80.3 Family history of malignant neoplasm of breast; Z82.49 Family history of ischemic heart disease and other diseases of the circulatory system; Z87.891 Personal history of nicotine dependence; Z95.810 Presence of automatic (implantable) cardiac defibrillator
CPT/HCPCS: 36415; 43239; 45378; 70450; 71046; 78582; 80048; 80053; 81003; 82272; 83036; 83735; 83880; 84484; 85025; 85027; 85379; 85610; 85730; 88305; 93005; 93306; 93880; 96361; 96374; 96375; 99285

== ENCOUNTER → 2022-07-04 | Outpatient (CLI) | payer MEDICARE ==
--- NOTE | 2022-07-04 12:46 | US ---
EXAMINATION TYPE: US kidneys/renal and bladder DATE OF EXAM: 07/04/2022 COMPARISON: Renal ultrasound 03/03/2022 CLINICAL HISTORY: R94.4 Abn results of kidney function studies. EXAM MEASUREMENTS: Right Kidney: 9.8 x 5.2 x 5.2 cm Left Kidney: 10.1 x 4.6 x 5.2 cm Right Kidney: No hydronephrosis or masses seen . No shadowing calculi. Left Kidney: Stable anechoic cyst measuring 3.2 x 3.4 x 3.5 cm with posterior acoustic enhancement. Bladder: wnl, bilateral ureteral jets identified. Spleen is again enlarged measuring up to 17.0 cm in greatest dimension. IMPRESSION: 1. No hydronephrosis or shadowing calculi. 2. Stable 3.5 cm cyst within the inferior pole the left kidney. 3. Incidental splenomegaly again demonstrated measuring up to 17 cm.
== END | disposition home or self-care (01) ==
LOC: RADUSWWP 12:04
PROVIDERS: ATTEND Family Medicine
DX: N28.1 Cyst of kidney, acquired (principal); R16.1 Splenomegaly, not elsewhere classified
CPT/HCPCS: 76770

== ENCOUNTER 2023-08-31 23:45 | Emergency (ER) | payer MEDICARE ==
[2023-09-01 00:03] VITALS: TEMP 98
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
[2023-09-01 03:24] VITALS: BP 109/82; PULSE 70; RESP 16
--- NOTE | 2023-09-01 05:56 | XR ---
EXAM: XR Chest, 1 View CLINICAL HISTORY: cough, blood TECHNIQUE: Frontal view of the chest. COMPARISON: June 15, 2022. FINDINGS: Lungs: There are diffuse edema-like infiltrates which may represent CHF/fluid overload. Pleural space: Unremarkable. No pneumothorax or pleural fluid. Heart: The heart appears enlarged. Mediastinum: Unremarkable. Bones/joints: No acute findings. Tubes, lines and devices: There is an implanted cardiac pacer. IMPRESSION: There are diffuse edema-like infiltrates which may represent CHF/fluid overload.
== END 2023-09-01 03:12 | disposition home or self-care (01) ==
LOC: EC 23:45
DX: D68.9 Coagulation defect, unspecified (principal); K13.79 Other lesions of oral mucosa; E78.5 Hyperlipidemia, unspecified; I10 Essential (primary) hypertension; J44.9 Chronic obstructive pulmonary disease, unspecified; K21.9 Gastro-esophageal reflux disease without esophagitis; Z87.891 Personal history of nicotine dependence; Z79.899 Other long term (current) drug therapy
CPT/HCPCS: 71045; 99285

== ENCOUNTER 2023-09-20 17:00 | Emergency (ER) | payer MEDICARE ==
[2023-09-20] MEDS ORDERED: KETOROLAC 15 MG/ML 1 ML VIAL IVP STA (19:35)
[2023-09-20] MEDS ORDERED: ORPHENADRINE 30 MG/ML 2 ML VIAL IVP STA (19:35)
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
[2023-09-20 20:31] LABS: Anisocytosis Slight; Basophils % (A) 0 %; Eosinophils % (A) 0 %; Hypochromasia Moderate; Lymphocytes # (A) 0.7 k/uL (1.0-4.8); Lymphocytes % (A) 9 %; MCH 29.5 pg (25.0-35.0); MCHC 30.6 g/dL (31.0-37.0); MCV 96.3 fL (80.0-100.0); Macrocytosis Slight; Mean Platelet Volume 11.3; Monocytes # (A) 0.4 k/uL (0-1.0); Monocytes % (A) 5 %; Neutrophils # (A) 6.1 k/uL (1.3-7.7); Neutrophils % (A) 82 %; Platelet Count 107 k/uL (150-450); RBC 3.73 m/uL (4.30-5.90); RDW 16.9 % (11.5-15.5); WBC 7.5 k/uL (3.8-10.6)
[2023-09-20 20:46] LABS: ALT 15 U/L (4-49); AST 28 U/L (17-59); African American GFR (CKD) 43 (>60 ml/min/1.73 sqM); Alkaline Phosphatase 125 U/L (38-126); Anion Gap 16 mmol/L; Blood Urea Nitrogen 84 mg/dL (9-20); C Reactive Protein 6.3 mg/dL (<1.0); Carbon Dioxide 23 mmol/L (22-30); Chloride 100 mmol/L (98-107); Glucose 112 mg/dL (74-99); Non-African American GFR(CKD) 37 (>60 ml/min/1.73 sqM); Potassium 4.5 mmol/L (3.5-5.1); Sodium 139 mmol/L (137-145); Total Bilirubin 2.1 mg/dL (0.2-1.3)
[2023-09-20] MEDS ORDERED: SODIUM CHLORIDE 0.9% 1,000 ML IV STA (20:53)
--- NOTE | 2023-09-20 21:39 | CT ---
EXAMINATION TYPE: CT pelvis wo con, CT hip LT wo con CT DLP: 1441.5 mGycm, Automated exposure control for dose reduction was used. DATE OF EXAM: 09/20/2023 9:25 PM COMPARISON: CT abdomen pelvis most recent from CT 01/13/2022. CLINICAL INDICATION:Male, 77 years old with history of Left groin pain; Left groin/hip pain TECHNIQUE: Axial CT of the ;CT pelvis wo con, CT hip LT wo con;Sagittal and coronal reformats were c reated on a separate workstation. Axial imaging of the hip with sagittal and coronal reformats. 3-D images were created on a separate w orkstation. Contrast used:(none if empty) Oral contrast used: without Oral Contrast (none if empty) FINDINGS: There is a nodular contour to liver. BLADDER: Unremarkable REPRODUCTIVE: Unremarkable. ABDOMEN & PELVIS STOMACH AND BOWEL: No evidence of bowel obstruction. Scattered colonic diverticula. PERITONEUM/RETROPERITONEUM: No evidence of pneumoperitoneum or free fluid. VASCULATURE: Arterial phase imaging demonstrates no evidence for acute arterial contrast extravasatio n and no pooling of contrast is seen on portal venous and delayed phase imaging. MUSCULOSKELETAL: No acute osseous abnormalities. Moderate disc degeneration changes are present throu ghout the thoracolumbar spine. Severe degeneration changes right hip with subchondral cystic change o steophytes and joint space loss. Left hip arthroplasty changes with hardware intact. Left hip arthrop lasty LYMPH NODES: No gross evidence for lymphadenopathy. SOFT TISSUE/ABDOMINAL WALL: Left inguinal hernia. Fat-containing and bowel containing umbilical herni a. IMPRESSION: 1. No evidence of fracture. 2. Left hip arthroplasty with hardware intact. No evidence for periprosthetic fracture or loosening. 3. Right hip end-stage osteoarthrosis. 4. Moderate to severe degeneration changes throughout the spine. 5. Hepatic cirrhosis with ascites. 6. Colonic diverticulosis.
[2023-09-20 21:54] LABS: Appearance,Urine Clear (Clear); Bilirubin,Urine Negative (Negative); Blood,Urine Negative (Negative); Color,Urine Yellow; Glucose,Urine (UA) Negative (Negative); Hyaline Casts,Urine 12 /lpf (0-2); Ketones,Urine Negative (Negative); Leukocyte Esterase,Urine Small (Negative); Mucus,Urine Rare /hpf; Nitrite,Urine Negative (Negative); PH, Urine 5.5 (5.0-8.0); Protein,Urine Negative (Negative); WBC,Urine 8 /hpf (0-5)
[2023-09-20 22:04] VITALS: RESP 18
[2023-09-20] MEDS ORDERED: DEXAMETHASONE SOD PHOSPHATE 10 MG/ML 1 ML VIAL IVP STA (22:06)
[2023-09-20] MEDS ORDERED: ACET/COD 300 MG/30 MG STARTER PACK 6 TAB BTL PO STA (22:07)
[2023-09-20 22:58] VITALS: BP 100/64; PULSE 69; TEMP 98
== END 2023-09-20 22:45 | disposition home or self-care (01) ==
LOC: EC 17:00
DX: R10.30 Lower abdominal pain, unspecified (principal); K57.30 Diverticulosis of large intestine without perforation or abscess without bleeding; K74.60 Unspecified cirrhosis of liver; R18.8 Other ascites; J44.9 Chronic obstructive pulmonary disease, unspecified; K21.9 Gastro-esophageal reflux disease without esophagitis; E78.5 Hyperlipidemia, unspecified; I10 Essential (primary) hypertension; Z87.891 Personal history of nicotine dependence; Z79.899 Other long term (current) drug therapy
CPT/HCPCS: 36415; 80053; 83605; 85025; 86140; 81001; 72192; 73700; 99284; 96374; 96375 ×2; 96361; J1100; J2360; J1885

== ENCOUNTER 2023-10-30 13:24 | Inpatient (IN) | payer MEDICARE ==
[2023-10-30] MEDS ORDERED: FUROSEMIDE 10 MG/ML 4 ML VIAL IV STA (14:24)
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
[2023-10-30 14:55] LABS: Anisocytosis Slight; Basophils % (A) 0 %; Eosinophils % (A) 0 %; HCT 33.4 % (39.0-53.0); HGB 10.6 gm/dL (13.0-17.5); Hypochromasia Moderate; Lymphocytes # (A) 0.6 k/uL (1.0-4.8); Lymphocytes % (A) 9 %; MCH 30.4 pg (25.0-35.0); MCHC 31.8 g/dL (31.0-37.0); MCV 95.7 fL (80.0-100.0); Monocytes # (A) 0.4 k/uL (0-1.0); Monocytes % (A) 6 %; Neutrophils # (A) 5.4 k/uL (1.3-7.7); Neutrophils % (A) 83 %; Platelet Count 117 k/uL (150-450); RBC 3.48 m/uL (4.30-5.90); RDW 16.6 % (11.5-15.5); WBC 6.5 k/uL (3.8-10.6)
[2023-10-30 14:57] LABS: INR 1.5 (<1.2); Partial Thromboplastin Time 32.5 sec (22.0-30.0); Prothrombin Time 15.1 sec (10.0-12.5)
[2023-10-30 15:00] LABS: ALT 13 U/L (4-49); AST 26 U/L (17-59); African American GFR (CKD) 49 (>60 ml/min/1.73 sqM); Albumin 4.3 g/dL (3.5-5.0); Alkaline Phosphatase 123 U/L (38-126); Anion Gap 18 mmol/L; Blood Urea Nitrogen 76 mg/dL (9-20); Calcium 9.3 mg/dL (8.4-10.2); Carbon Dioxide 24 mmol/L (22-30); Chloride 96 mmol/L (98-107); Glucose 107 mg/dL (74-99); Magnesium 2.1 mg/dL (1.6-2.3); Non-African American GFR(CKD) 43 (>60 ml/min/1.73 sqM); Potassium 4.4 mmol/L (3.5-5.1); Sodium 138 mmol/L (137-145); Total Bilirubin 1.6 mg/dL (0.2-1.3); Total Protein 7.4 g/dL (6.3-8.2)
[2023-10-30 15:06] LABS: NT-Pro-B-Type Natriuretic Pept 20700 pg/mL
--- NOTE | 2023-10-30 15:07 | XR ---
EXAMINATION TYPE: XR chest 2V DATE OF EXAM: 10/30/2023 COMPARISON: 09/01/2023 HISTORY: 78 year-old male shortness of breath, difficulty breathing TECHNIQUE: AP and lateral views FINDINGS: Heart is mild to moderately enlarged. Left anterior chest wall ICD generator with right ventricular l ead. Diffuse interstitial and patchy opacities especially in the lower lungs. No sizable pleural effu darrell. IMPRESSION: Cardiomegaly with diffuse interstitial and patchy opacities especially in the mid and lower lungs. Co rrelate for CHF with patchy pulmonary edema versus multifocal pneumonia including the possibility of atypical pneumonia.
[2023-10-30] MEDS: FUROSEMIDE 10 MG/ML 4 ML VIAL IV SCH (16:31)
[2023-10-30] MEDS: NITROGLYCERIN OINT 1 INCH/GM PACKET TOPICAL SCH (19:02)
[2023-10-30] MEDS ORDERED: ACETAMINOPHEN TAB 500 MG TAB PO STA (20:08)
[2023-10-31] MEDS: NITROGLYCERIN OINT 1 INCH/GM PACKET TOPICAL SCH ×4 (00:34→18:11)
[2023-10-31] MEDS: FUROSEMIDE 10 MG/ML 4 ML VIAL IV SCH ×4 (00:34→23:30)
[2023-10-31] MEDS ORDERED: ALBUTEROL NEBULIZED 2.5 MG/3 ML INHALATION PRN (09:55)
[2023-10-31] MEDS ORDERED: MELOXICAM 7.5 MG TAB PO PRN (10:42)
[2023-10-31] MEDS ORDERED: DEXTROSE 50% SYRINGE 50 ML IVP PRN ×2 (12:26)
[2023-10-31] MEDS ORDERED: metOLazone 2.5 MG TAB PO PRN (12:44)
[2023-10-31] MEDS: FERROUS SULFATE 325 MG TAB PO SCH (12:54)
[2023-10-31] MEDS: allopurinoL 300 MG TAB PO SCH (12:55)
[2023-10-31] MEDS: SPIRONOLACTONE 25 MG TAB PO SCH (12:55)
[2023-10-31] MEDS: PANTOPRAZOLE 40 MG TABLET PO SCH (12:55)
[2023-10-31] MEDS ORDERED: AZITHROMYCIN 500 MG in SODIUM CHLORIDE 0.9% 250 ML IVPB SCH (13:00)
[2023-10-31] MEDS: methylPREDNISolone SOD SUCCI 125 MG/2 ML VIAL IV SCH ×2 (13:12→18:19)
[2023-10-31 13:15] LABS: Glucose,Whole Blood 177 mg/dL (70-110)
[2023-10-31] MEDS: INSULIN ASPART (NovoLOG) 100 UNIT/ML VIAL SQ SCH ×3 (13:24→20:49)
[2023-10-31] MEDS: IPRATROPIUM-ALBUTEROL 3 ML NEB INHALATION SCH ×2 (15:58→21:40)
[2023-10-31 17:27] LABS: Glucose,Whole Blood 122 mg/dL (70-110)
[2023-10-31 20:11] LABS: Glucose,Whole Blood 188 mg/dL (70-110)
[2023-10-31] MEDS: TAMSULOSIN 0.4 MG CAP.ER.24H PO SCH (20:48)
[2023-10-31] MEDS: METOPROLOL SUCCINATE (ER) 25 MG TAB.ER.24H PO SCH (20:49)
[2023-10-31] MEDS: APIXABAN 5 MG TAB PO SCH (20:49)
[2023-10-31] MEDS: ATORVASTATIN 10 MG TAB PO SCH (20:49)
[2023-10-31] MEDS: SACUBITRIL/VALSARTAN 49 MG-51 MG TABLET PO SCH (21:34)
[2023-10-31] MEDS: BUDESONIDE 1 MG/2 ML NEBU INHALATION SCH (21:40)
--- NOTE | 2023-10-31 22:38 | HP ---
HISTORY AND PHYSICAL CHIEF COMPLAINT: Shortness of breath and weakness. HISTORY OF PRESENT ILLNESS: This is a 78-year-old gentleman with a past medical history of multiple medical problems, COPD, GERD, was getting increasingly weak and shortness of breath even on short exertion. The patient came to [facility] chest x-ray showed possibly a combination of COPD and CHF exacerbation with suspected pneumonic process also. The patient admitted for further evaluation and treatment, pulmonary cardiology evaluation has been sought. D-dimer is also elevated. A 2D echocardiogram done in 2021 showed ejection fraction of about 20% to 25%. There is no history of any fever, rigors, or chills at this time. PAST MEDICAL HISTORY: Reviewed include COPD, ejection fraction 20% to 25%, rest of the history and rest of the chart is also reviewed. HOME MEDICATIONS: Reviewed include iron sulfate, dose and rest of medications reviewed. ALLERGIES: None. FAMILY HISTORY: History of CHF in the family. SOCIAL HISTORY: Previous history of smoking. REVIEW OF SYSTEMS: A 14-point review is negative except as mentioned earlier. PHYSICAL EXAMINATION: VITAL SIGNS: Pulse is 60, blood pressure 101/60, respirations 20. HEENT: Conjunctivae normal. NECK: No jugular venous distention. CARDIOVASCULAR: S1, S2 muffled. RESPIRATION: Bilateral scattered rhonchi and crackles. ABDOMEN: Soft. LEGS: No edema, no swelling. NERVOUS SYSTEM: Diffusely weak. SKIN: No ulcer, rash, bleeding. JOINTS: No active deforming arthropathy. LABORATORY DATA: Hemoglobin 10.3, rest of the labs are noted. Chest x-ray reviewed personally. ASSESSMENT: 1. Shortness of breath with a combination of COPD acute exacerbation, CHF acute exacerbation. 2. COPD acute exacerbation. 3. Rule out pneumonia. 4. Elevated D-dimer. 5. Mild acute renal failure. 6. Anemia. 7. Thrombocytopenia, mild. 8. COPD. 9. Hypertension. 10.Hyperlipidemia. 11.History of gout. 12.History of AICD. 13.History of cardiomyopathy. 14.Full code. RECOMMENDATIONS: This 78-year-old gentleman presented with multiple complex medical issues. We will monitor the patient closely. Recommend gentle diuresis. Monitor closely. Empiric antibiotics, bronchodilators, pulmonary consultation, steroids. We will treat the patient for possible COPD acute exacerbation also, Entresto will be continued and guarded prognosis because of the multiple complex medical issues and further recommendations to follow. See orders for details. Limit fluid intake. Further recommendations to follow. The possibility of pneumonia is also considered. We will check a procalcitonin also. MMODL / IJN: [id number] /
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
[2023-11-01 06:05] LABS: Glucose,Whole Blood 163 mg/dL (70-110)
[2023-11-01] MEDS: PANTOPRAZOLE 40 MG TABLET PO SCH (06:16)
[2023-11-01] MEDS: methylPREDNISolone SOD SUCCI 125 MG/2 ML VIAL IV SCH ×5 (06:16→22:52)
[2023-11-01] MEDS: INSULIN ASPART (NovoLOG) 100 UNIT/ML VIAL SQ SCH ×4 (06:16→20:07)
[2023-11-01] MEDS: IPRATROPIUM-ALBUTEROL 3 ML NEB INHALATION SCH ×4 (07:43→21:14)
[2023-11-01] MEDS: BUDESONIDE 1 MG/2 ML NEBU INHALATION SCH ×2 (07:43→21:14)
[2023-11-01] MEDS ORDERED: SYMBICORT 80-4.5 MCG INHALER INHALATION SCH (08:00)
[2023-11-01] MEDS ORDERED: IPRATROPIUM 0.5 MG/2.5 ML NEBU INHALATION SCH (08:00)
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
--- NOTE | 2023-11-01 09:37 | XR ---
EXAMINATION TYPE: XR chest 1V portable DATE OF EXAM: 11/01/2023 Comparison: 10/30/2023 Clinical History: 78-year-old male CHF, pneumonia Findings: Left anterior chest wall AICD generator with right ventricular lead. Heart mildly enlarged. Diffuse i nterstitial and patchy opacities especially in the right mid and lower lungs. No sizable pleural effu darrell. Impression: Similar cardiomegaly, diffuse interstitial densities, and airspace opacity right mid and lower lung.
[2023-11-01 09:52] LABS: Anisocytosis Slight; Basophils % (A) 0 %; Eosinophils % (A) 0 %; HCT 29.4 % (39.0-53.0); Hypochromasia Marked; Lymphocytes # (A) 0.3 k/uL (1.0-4.8); Lymphocytes % (A) 9 %; MCH 29.5 pg (25.0-35.0); MCHC 30.5 g/dL (31.0-37.0); MCV 96.7 fL (80.0-100.0); Macrocytosis Slight; Mean Platelet Volume 10.8; Monocytes # (A) 0.1 k/uL (0-1.0); Monocytes % (A) 3 %; Neutrophils # (A) 2.7 k/uL (1.3-7.7); Neutrophils % (A) 87 %; Platelet Count 105 k/uL (150-450); RBC 3.03 m/uL (4.30-5.90); RDW 16.6 % (11.5-15.5); WBC 3.1 k/uL (3.8-10.6)
[2023-11-01] MEDS: allopurinoL 300 MG TAB PO SCH (10:09)
[2023-11-01] MEDS: FERROUS SULFATE 325 MG TAB PO SCH (10:09)
[2023-11-01] MEDS: APIXABAN 5 MG TAB PO SCH ×2 (10:09→20:07)
[2023-11-01] MEDS: SACUBITRIL/VALSARTAN 49 MG-51 MG TABLET PO SCH ×2 (10:09→20:07)
[2023-11-01] MEDS: FUROSEMIDE 10 MG/ML 4 ML VIAL IV SCH ×3 (10:09→22:52)
[2023-11-01] MEDS: SPIRONOLACTONE 25 MG TAB PO SCH (10:10)
[2023-11-01 10:43] LABS: ALT 14 U/L (4-49); AST 24 U/L (17-59); African American GFR (CKD) 51 (>60 ml/min/1.73 sqM); Albumin 3.6 g/dL (3.5-5.0); Alkaline Phosphatase 113 U/L (38-126); Anion Gap 16 mmol/L; Blood Urea Nitrogen 73 mg/dL (9-20); Carbon Dioxide 24 mmol/L (22-30); Chloride 98 mmol/L (98-107); Glucose 227 mg/dL (74-99); Non-African American GFR(CKD) 44 (>60 ml/min/1.73 sqM); Potassium 4.2 mmol/L (3.5-5.1); Sodium 138 mmol/L (137-145); Total Bilirubin 1.3 mg/dL (0.2-1.3); Total Protein 6.7 g/dL (6.3-8.2)
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
[2023-11-01 11:50] LABS: Glucose,Whole Blood 206 mg/dL (70-110)
[2023-11-01 12:15] VITALS: BMI 30.8
[2023-11-01] MEDS: AZITHROMYCIN 500 MG in SODIUM CHLORIDE 0.9% 250 ML IVPB SCH (12:50)
--- NOTE | 2023-11-01 14:56 | CT ---
EXAMINATION TYPE: CT chest wo con CT DLP: 650.7 mGycm, Automated exposure control for dose reduction was used. DATE OF EXAM: 11/01/2023 11:12 AM COMPARISON: Chest x-ray 11/01/2023 and older studies . CLINICAL INDICATION:Male, 78 years old with history of pneumonia vs lung mass; PHH, Eval for pneumoni a vs lung mass TECHNIQUE: Multiple axial images were obtained through the chest. Sagittal and coronal reformats were created for review. Contrast used: mL of (None if empty) Oral contrast used: (None if empty) FINDINGS: Examination limited by lack of IV contrast. LUNGS/ PLEURA: There are moderate background emphysematous changes with interstitial thickening and a reas of scarring. There is a mosaic attenuation of the lung parenchyma most evident in the upper lobe s. More confluent groundglass opacities are present in the mid to lower lungs. There is no dense cons olidation, sizable effusion, or pneumothorax. A few interspersed groundglass nodular densities can be seen, for example right upper lobe 8 mm image 28 series 205, 6 mm right upper lobe inferiorly along the oblique fissure image 30, 5.5 mm juxtapleural in the anterior right middle lobe image 35, 5 mm ri ght lower lobe image 33, 6 mm left upper lobe image 12, 4 mm left upper lobe image 20, 7 mm vaguely m arginated left lower lobe image 33. A lung mass is not identified. AIRWAY: Central airways are patent. LOWER NECK: No significant findings. Left chest single lead AICD with its lead tip in the right ventr icle. MEDIASTINUM: Multiple nonenlarged and mildly enlarged mediastinal nodes are seen. For example multipl e lower right anterior paratracheal nodes measuring 12 mm, 10 mm, 12 mm, 10 mm, farther cranially 16 mm. No distinct hilar adenopathy demonstrated without contrast.. HEART: Heart is moderately to severely enlarged, with likely four-chamber enlargement. There is pulmo nary venous congestion. Moderate to severe coronary artery calcification and/or stents. No appreciabl e pericardial effusion. Poor visualization of the interventricular septum, can be seen with anemia. VASCULATURE: Moderate atherosclerotic calcifications of the aorta and branches. Ascending aorta is 3 .3 CM, descending is 2.8 CM. Aorta is considered normal in size. Pulmonary trunk measures 3.2 CM. Th e pulmonary trunk is enlarged (>3cm), this can be seen with pulmonary hypertension. Further evaluatio n of the vasculature is limited without IV contrast. SOFT TISSUES/LYMPH NODES: Mild body wall edema. No enlarged axillary nodes. UPPER ABDOMEN: Cirrhotic hepatic morphology. Moderate perihepatic and perisplenic ascites. Spleen is not fully seen but appears significantly enlarged measuring at least 14.5 cm. There is eventration of the diaphragm, with mild elevation on the left posteriorly and partial protrusion of the spleen up i nto the chest. There is eventration along the right side which is mostly anterior with some protrusio n of the liver and perihepatic ascites up into the chest. Radiodense level in the gallbladder suggest madhu of sludge and/or tiny layering gallstones, filling about half of the gallbladder lumen. Adrenals appear somewhat thickened without evidence of mass. MUSCULOSKELETAL: Generalized osteopenia and moderate degenerative changes. Nonacute healing fracture of the right anterior third rib. Moderate multilevel degenerative changes throughout the spine. No cl early acute osseous abnormalities. IMPRESSION: 1. Moderate to severe cardiomegaly with pulmonary vascular congestion. AICD in place. 2. Moderate to heavy atherosclerotic calcifications of the coronary arteries, aorta and major branch es. 3. Moderate pulmonary emphysema. 4. Extensive groundglass pulmonary opacities with mosaic pattern mostly in the upper lobes. This is nonspecific but can be seen with pulmonary edema, pulmonary hemorrhage, or parenchymal disease includ ing acute to subacute infection (including atypical infectious causes). Obstructive small airways dis ease or occlusive vascular disease are possible. 5. A few interspersed subcentimeter groundglass nodular densities, nonspecific could be infectious/i nflammatory. 6. Cirrhotic hepatic morphology. Splenomegaly. Moderate perihepatic and perisplenic ascites. 7. Other chronic and likely incidental findings, as described above. RECOMMENDATION: Follow-up CT chest in about 6 months.
[2023-11-01 16:34] LABS: Glucose,Whole Blood 160 mg/dL (70-110)
[2023-11-01 19:54] LABS: Glucose,Whole Blood 204 mg/dL (70-110)
[2023-11-01] MEDS: TAMSULOSIN 0.4 MG CAP.ER.24H PO SCH (20:07)
[2023-11-01] MEDS: ATORVASTATIN 10 MG TAB PO SCH (20:07)
[2023-11-01] MEDS: METOPROLOL SUCCINATE (ER) 25 MG TAB.ER.24H PO SCH (20:07)
[2023-11-02 06:12] LABS: Glucose,Whole Blood 173 mg/dL (70-110)
[2023-11-02] MEDS: methylPREDNISolone SOD SUCCI 125 MG/2 ML VIAL IV SCH ×4 (06:28→23:32)
[2023-11-02] MEDS: PANTOPRAZOLE 40 MG TABLET PO SCH (06:28)
[2023-11-02] MEDS: INSULIN ASPART (NovoLOG) 100 UNIT/ML VIAL SQ SCH ×4 (06:29→20:26)
[2023-11-02] MEDS: BUDESONIDE 1 MG/2 ML NEBU INHALATION SCH ×3 (08:02→20:56)
[2023-11-02] MEDS: IPRATROPIUM-ALBUTEROL 3 ML NEB INHALATION SCH ×5 (08:02→20:56)
[2023-11-02 08:10] LABS: Anisocytosis Slight; Basophils % (A) 0 %; Eosinophils % (A) 0 %; HCT 30.2 % (39.0-53.0); HGB 9.5 gm/dL (13.0-17.5); Hypochromasia Moderate; Lymphocytes # (A) 0.4 k/uL (1.0-4.8); Lymphocytes % (A) 7 %; MCHC 31.4 g/dL (31.0-37.0); MCV 95.7 fL (80.0-100.0); Mean Platelet Volume 10.6; Monocytes # (A) 0.2 k/uL (0-1.0); Monocytes % (A) 3 %; Neutrophils # (A) 4.9 k/uL (1.3-7.7); Neutrophils % (A) 89 %; Platelet Count 118 k/uL (150-450); RBC 3.15 m/uL (4.30-5.90); RDW 16.5 % (11.5-15.5); WBC 5.5 k/uL (3.8-10.6)
[2023-11-02 08:26] LABS: ALT 14 U/L (4-49); AST 25 U/L (17-59); African American GFR (CKD) 43 (>60 ml/min/1.73 sqM); Albumin 3.8 g/dL (3.5-5.0); Alkaline Phosphatase 98 U/L (38-126); Anion Gap 15 mmol/L; Blood Urea Nitrogen 85 mg/dL (9-20); Calcium 9.1 mg/dL (8.4-10.2); Carbon Dioxide 23 mmol/L (22-30); Chloride 99 mmol/L (98-107); Glucose 142 mg/dL (74-99); Non-African American GFR(CKD) 37 (>60 ml/min/1.73 sqM); Potassium 4.3 mmol/L (3.5-5.1); Sodium 137 mmol/L (137-145); Total Bilirubin 1.3 mg/dL (0.2-1.3); Total Protein 6.8 g/dL (6.3-8.2)
[2023-11-02] MEDS: SPIRONOLACTONE 25 MG TAB PO SCH (09:09)
[2023-11-02] MEDS: FERROUS SULFATE 325 MG TAB PO SCH (09:09)
[2023-11-02] MEDS: APIXABAN 5 MG TAB PO SCH ×2 (09:09→20:26)
[2023-11-02] MEDS: FUROSEMIDE 10 MG/ML 4 ML VIAL IV SCH ×3 (09:09→23:32)
[2023-11-02] MEDS: allopurinoL 300 MG TAB PO SCH (09:10)
[2023-11-02] MEDS: SACUBITRIL/VALSARTAN 49 MG-51 MG TABLET PO SCH ×2 (09:10→20:27)
[2023-11-02] MEDS: SODIUM CHLORIDE 0.65% NASAL SPRAY 44 ML BTL NASAL PRN (09:20)
--- NOTE | 2023-11-02 09:22 | PN ---
PROGRESS NOTE DATE OF SERVICE: 11/01/2023 SUBJECTIVE: This 78-year-old gentleman admitted with shortness of breath, possibly COPD and CHF acute exacerbation, is being closely monitored at this time. Multiple consultants are following the patient closely. Pulmonary has seen the patient. The procalcitonin level was found to be elevated at 0.10. The patient is also receiving gentle diuresis. The patient lost about more than 10 pounds already. A CAT scan of the chest has been ordered, the official report is pending, showed bilateral pneumonitis process, possibly indicative of COVID. COVID testing was negative. PAST MEDICAL HISTORY: Reviewed. REVIEW OF SYSTEMS: A 14-point review is negative except as mentioned earlier. CURRENT MEDICATIONS: Reviewed include DuoNeb, dose and rest of medications noted. PHYSICAL EXAMINATION: VITAL SIGNS: Pulse is 95, blood pressure 120/70, and respirations 21. HEENT: Conjunctivae normal. NECK: No jugular venous distention. CARDIOVASCULAR: S1, S2 muffled. RESPIRATIONS: Few scattered rhonchus. ABDOMEN: Soft. NERVOUS SYSTEM: Nonfocal. LABS: Platelets 105, WBC 3.1. D-dimer is elevated. ASSESSMENT: 1. Shortness of breath, possibly a combination of COPD acute exacerbation, CHF acute exacerbation. 2. Possible bilateral interstitial pneumonia, possibly viral pneumonia versus gram- negative pneumonia. 3. Elevated D-dimer. 4. Elevated procalcitonin level. 5. Mild acute renal failure. 6. Anemia. 7. Thrombocytopenia, mild. 8. Hypertension. 9. Hyperlipidemia. 10.History of gout. 11.History of AICD. 12.History of cardiomyopathy. 13.Full code. RECOMMENDATIONS: Recommended to continue current management, continue symptomatic treatment, otherwise I would recommend continue with bronchodilators and gentle diuresis, steroids, monitor blood sugars closely. Closely follow with multiple consultants and guarded prognosis because of multiple complex medical issues and further recommendations to follow. MMODL / IJN: [id number] /
[2023-11-02 11:33] LABS: Glucose,Whole Blood 220 mg/dL (70-110)
[2023-11-02] MEDS: AZITHROMYCIN 500 MG in SODIUM CHLORIDE 0.9% 250 ML IVPB SCH (12:05)
--- NOTE | 2023-11-02 12:05 | XR ---
EXAMINATION TYPE: XR chest 1V portable DATE OF EXAM: 11/02/2023 Comparison: 11/01/2023 Clinical History: 78-year-old male CHF Findings: Left anterior chest wall ICD generator with right ventricular lead. Heart mildly enlarged. Diffuse in terstitial and patchy opacities are present bilaterally, similar to prior. Impression: Ongoing CHF with patchy pulmonary edema.
--- NOTE | 2023-11-02 12:36 | P.PN ---
Subjective HISTORY OF PRESENT ILLNESS: This is a 78 year old male with a past medical history significant for coronary artery disease, nonischemic cardiomyopathy, AICD implantation, paroxysmal atrial fibrillation, hypertension, hyperlipidemia, and valvular heart disease. Patient follows in the office with Dr. Reid. We have been asked to see the patient in consultation for congestive heart failure. Patient examined at the bedside. Patient is currently sitting up in the chair. Patient states he presented to the hospital with a chief complaint of shortness of breath. He denied having any chest pain or pressure. The patient was started on IV Lasix 40 mg every 8 hours. He has also been started on IV steroids per primary medicine. Vital signs are stable. * EKG reveals atrial fibrillation with controlled ventricular rate. PVCs. * Chest xray cardiomegaly with diffuse interstitial and patchy opacities especially in the mid and lower lungs. Correlate for CHF with patchy pulmonary edema versus multifocal pneumonia * Laboratory data: Troponin negative 1. ProBNP 20,700. * Most recent echocardiogram obtained in April 2022 revealed ejection fraction 20-25%, trace to mild mitral regurgitation, mild aortic regurgitation, mild- to-moderate tricuspid regurgitation * Cardiac catheterization history: January 2018 with 50% lesion in the mid LAD 11/02/2023 Patient examined this morning at the bedside. Patient denies chest pain or pressure. He continues to report shortness of breath although improving. He re kathy on IV diuresis. Creatinine increased today from 1.51-1.76. Telemetry reveals atrial fibrillation with a heart rate in the 70s. Blood pressure stable at 103/57. Chest x-ray completed today reveals ongoing CHF with patchy pulmonary edema PHYSICAL EXAM: VITAL SIGNS: Reviewed. GENERAL: Well-developed in no acute distress. HEENT: Head is normocephalic. Pupils are equal, round. Sclerae anicteric. Mucous membranes of the mouth are moist. Neck supple. No JVD or thyromegaly LUNGS: Respirations even and unlabored. Lungs diminished with bibasilar crackles HEART: Irregular rate and rhythm. S1 and S2 heard. ABDOMEN: Soft. Nondistended. Nontender. EXTREMITIES: Normal range of motion. No clubbing or cyanosis. Peripheral pulses intact. 2+ bilateral pitting lower extremity edema NEUROLOGIC: Awake and alert. Oriented x 3. ASSESSMENT: Shortness of breath Acute on chronic heart failure with reduced ejection fraction, 20-25% Nonischemic cardiomyopathy History of AICD implantation None obstructive coronary artery disease with 50% lesion in the mid LAD Paroxysmal atrial fibrillation History of COPD Hypertension Hyperlipidemia Valvular heart disease PLAN: No need to repeat echocardiogram at this time Continue home cardiac medications Continue IV Lasix 40 mg every 8 hours Daily weights, accurate I&O, and monitoring of kidney function Further recommendations pending patient's course Nurse practitioner note has been reviewed by physician. Signing provider agrees with the documented findings, assessment, and plan of care. Objective - Vital Signs Vital signs: Vital Signs Temp 97.6 F 11/02/23 12:00 Pulse 68 11/02/23 12:00 Resp 16 11/02/23 12:00 BP 103/57 11/02/23 12:00 Pulse Ox 95 11/02/23 12:00 FiO2 Intake & Output 11/01/23 11/02/23 11/02/23 18:59 06:59 18:59 Intake Total 380 120 477 Output Total 300 575 Balance 80 -455 477 Weight 106 kg 106 kg Intake: IV 20 Invasive Line 1 10 Invasive Line 2 10 Oral 360 120 477 Output: Urine 300 575 Other: Voiding Method Toilet Toilet Toilet Urinal Urinal Urinal - Labs CBC & Chem 7: 11/02/23 07:57 11/02/23 07:57 Labs: Abnormal Lab Results - Last 24 Hours (Table) 11/01/23 11/01/23 11/01/23 Range/Units 14:58 14:58 16:33 RBC (4.30-5.90) m/uL Hgb (13.0-17.5) gm/dL Hct (39.0-53.0) % RDW (11.5-15.5) % Plt Count (150-450) k/uL Lymphocytes # (1.0-4.8) k/uL ESR 24 H (0-20) mm/Hr BUN (9-20) mg/dL Creatinine (0.66-1.25) mg/dL Glucose (74-99) mg/dL POC Glucose (mg/dL) 160 H (70-110) mg/dL C-Reactive Protein 4.8 H (<1.0) mg/dL 11/01/23 11/02/23 11/02/23 Range/Units 19:52 06:08 07:57 RBC 3.15 L (4.30-5.90) m/uL Hgb 9.5 L (13.0-17.5) gm/dL Hct 30.2 L (39.0-53.0) % RDW 16.5 H (11.5-15.5) % Plt Count 118 L (150-450) k/uL Lymphocytes # 0.4 L (1.0-4.8) k/uL ESR (0-20) mm/Hr BUN (9-20) mg/dL Creatinine (0.66-1.25) mg/dL Glucose (74-99) mg/dL POC Glucose (mg/dL) 204 H 173 H (70-110) mg/dL C-Reactive Protein (<1.0) mg/dL 11/02/23 11/02/23 Range/Units 07:57 11:32 RBC (4.30-5.90) m/uL Hgb (13.0-17.5) gm/dL Hct (39.0-53.0) % RDW (11.5-15.5) % Plt Count (150-450) k/uL Lymphocytes # (1.0-4.8) k/uL ESR (0-20) mm/Hr BUN 85 H (9-20) mg/dL Creatinine 1.76 H (0.66-1.25) mg/dL Glucose 142 H (74-99) mg/dL POC Glucose (mg/dL) 220 H (70-110) mg/dL C-Reactive Protein (<1.0) mg/dL Microbiology - Last 24 Hours (Table) 10/30/23 14:26 Blood Culture - Preliminary Blood 10/31/23 16:25 Gram Stain - Preliminary Sputum
--- NOTE | 2023-11-02 12:42 | P.PN ---
Subjective Progress Note Date: 11/01/23 Principal diagnosis: Reason for follow-up is pneumonia Patient is a 78-year-old male with a past medical history significant for hypertension hyperlipidemia osteoarthritis reflux COPD presenting to the hospital for evaluation of weakness, also complaining of cough and hemoptysis chest x-ray with cardiomegaly interstitial infiltrate and right middle lower lobe infiltrate concerning for possible pneumonia. On today's evaluation that is 11/01/2023 patient remains to be afebrile, the patient is breathing comfortably on 3 L nasal cannula oxygen patient denies any chest pain he could have a cough with some bloodstained sputum no nausea vomiting no abdominal pain and no diarrhea. Patient did have white count of 3.1, creatinine is 1.51 Pro-Kenan 0.10 blood and sputum cultures currently pending Objective - Vital Signs Vital signs: Vital Signs Temp 98.2 F 11/01/23 09:30 Pulse 95 11/01/23 09:30 Resp 22 11/01/23 09:30 BP 125/71 11/01/23 09:30 Pulse Ox 92 L 11/01/23 09:30 FiO2 Intake & Output 10/31/23 11/01/23 11/01/23 18:59 06:59 18:59 Intake Total 200 Output Total 1100 550 300 Balance -1100 -550 -100 Weight 106 kg 106 kg Intake: IV 20 Invasive Line 1 10 Invasive Line 2 10 Oral 180 Output: Urine 1100 550 300 Other: Voiding Method Toilet Toilet Urinal # Voids 1 - Exam GENERAL DESCRIPTION: An elderly male up in the chair in no distress RESPIRATORY SYSTEM: Unlabored breathing , decreased breath sounds at bases HEART: S1 S2 regular rate and rhythm , ABDOMEN: Soft , no tenderness EXTREMITIES: No edema feet - Labs CBC & Chem 7: 11/02/23 07:57 11/02/23 07:57 Labs: Abnormal Lab Results - Last 24 Hours (Table) 10/31/23 10/31/23 10/31/23 Range/Units 13:12 13:12 13:14 WBC (3.8-10.6) k/uL RBC (4.30-5.90) m/uL Hgb (13.0-17.5) gm/dL Hct (39.0-53.0) % MCHC (31.0-37.0) g/dL RDW (11.5-15.5) % Plt Count (150-450) k/uL Lymphocytes # (1.0-4.8) k/uL D-Dimer 1.60 H (<0.60) mg/L FEU BUN (9-20) mg/dL Creatinine (0.66-1.25) mg/dL Glucose (74-99) mg/dL POC Glucose (mg/dL) 177 H (70-110) mg/dL Procalcitonin 0.10 H (0.02-0.09) ng/mL 10/31/23 10/31/23 11/01/23 Range/Units 17:25 20:10 06:03 WBC (3.8-10.6) k/uL RBC (4.30-5.90) m/uL Hgb (13.0-17.5) gm/dL Hct (39.0-53.0) % MCHC (31.0-37.0) g/dL RDW (11.5-15.5) % Plt Count (150-450) k/uL Lymphocytes # (1.0-4.8) k/uL D-Dimer (<0.60) mg/L FEU BUN (9-20) mg/dL Creatinine (0.66-1.25) mg/dL Glucose (74-99) mg/dL POC Glucose (mg/dL) 122 H 188 H 163 H (70-110) mg/dL Procalcitonin (0.02-0.09) ng/mL 11/01/23 11/01/23 11/01/23 Range/Units 09:23 09:23 11:48 WBC 3.1 L (3.8-10.6) k/uL RBC 3.03 L (4.30-5.90) m/uL Hgb 9.0 L D (13.0-17.5) gm/dL Hct 29.4 L (39.0-53.0) % MCHC 30.5 L (31.0-37.0) g/dL RDW 16.6 H (11.5-15.5) % Plt Count 105 L (150-450) k/uL Lymphocytes # 0.3 L (1.0-4.8) k/uL D-Dimer (<0.60) mg/L FEU BUN 73 H (9-20) mg/dL Creatinine 1.51 H (0.66-1.25) mg/dL Glucose 227 H (74-99) mg/dL POC Glucose (mg/dL) 206 H (70-110) mg/dL Procalcitonin (0.02-0.09) ng/mL Microbiology - Last 24 Hours (Table) 10/31/23 16:25 Gram Stain - Preliminary Sputum 10/30/23 14:26 Blood Culture - Preliminary Blood Assessment and Plan (1) Pneumonia Current Visit: Yes Status: Acute Code(s): J18.9 - PNEUMONIA, UNSPECIFIED ORGANISM SNOMED Code(s): 041597673 Plan: 1patient presented to hospital with increasing shortness of breath weakness he also have cough and hemoptysis patient did have a history of COPD with evidence of pulmonary infiltrate concerning for possible component of pneumonia likely community-acquired versus fluid overload state 2-patient did have CRP of 4.8 and a procalcitonin of 0.10 3-blood and sputum culture has been obtained and currently pending 4-patient to continue with Rocephin Zithromax while waiting for the workup to be completed Dictation was produced using [employer] dictation software. please excuse any grammatical, word or spelling errors. Time with Patient: Less than 30
--- NOTE | 2023-11-02 12:43 | P.PN ---
Subjective Progress Note Date: 11/02/23 Principal diagnosis: Reason for follow-up is pneumonia Patient is a 78-year-old male with a past medical history significant for hypertension hyperlipidemia osteoarthritis reflux COPD presenting to the hospital for evaluation of weakness, also complaining of cough and hemoptysis chest x-ray with cardiomegaly interstitial infiltrate and right middle lower lobe infiltrate concerning for possible pneumonia. On today's evaluation that is 11/02/2023 patient continues to be afebrile, the patient is breathing comfortably on 3 L nasal cannula oxygen, patient denies any chest pain, denies any worsening cough or sputum production no nausea vomiting no abdominal pain and no diarrhea. Feeling better today Patient did have white count of 5.5, creatinine is 1.76, CRP was 4.8, Pro-Kenan 0.10 blood and sputum cultures currently pending Objective - Vital Signs Vital signs: Vital Signs Temp 97.6 F 11/02/23 12:00 Pulse 68 11/02/23 12:00 Resp 16 11/02/23 12:00 BP 103/57 11/02/23 12:00 Pulse Ox 95 11/02/23 12:00 FiO2 Intake & Output 11/01/23 11/02/23 11/02/23 18:59 06:59 18:59 Intake Total 380 120 477 Output Total 300 575 Balance 80 -455 477 Weight 106 kg 106 kg Intake: IV 20 Invasive Line 1 10 Invasive Line 2 10 Oral 360 120 477 Output: Urine 300 575 Other: Voiding Method Toilet Toilet Toilet Urinal Urinal Urinal - Exam GENERAL DESCRIPTION: An elderly male up in the chair in no distress RESPIRATORY SYSTEM: Unlabored breathing , decreased breath sounds at bases HEART: S1 S2 regular rate and rhythm , ABDOMEN: Soft , no tenderness EXTREMITIES: No edema feet - Labs CBC & Chem 7: 11/02/23 07:57 11/02/23 07:57 Labs: Abnormal Lab Results - Last 24 Hours (Table) 11/01/23 11/01/23 11/01/23 Range/Units 14:58 14:58 16:33 RBC (4.30-5.90) m/uL Hgb (13.0-17.5) gm/dL Hct (39.0-53.0) % RDW (11.5-15.5) % Plt Count (150-450) k/uL Lymphocytes # (1.0-4.8) k/uL ESR 24 H (0-20) mm/Hr BUN (9-20) mg/dL Creatinine (0.66-1.25) mg/dL Glucose (74-99) mg/dL POC Glucose (mg/dL) 160 H (70-110) mg/dL C-Reactive Protein 4.8 H (<1.0) mg/dL 11/01/23 11/02/23 11/02/23 Range/Units 19:52 06:08 07:57 RBC 3.15 L (4.30-5.90) m/uL Hgb 9.5 L (13.0-17.5) gm/dL Hct 30.2 L (39.0-53.0) % RDW 16.5 H (11.5-15.5) % Plt Count 118 L (150-450) k/uL Lymphocytes # 0.4 L (1.0-4.8) k/uL ESR (0-20) mm/Hr BUN (9-20) mg/dL Creatinine (0.66-1.25) mg/dL Glucose (74-99) mg/dL POC Glucose (mg/dL) 204 H 173 H (70-110) mg/dL C-Reactive Protein (<1.0) mg/dL 11/02/23 11/02/23 Range/Units 07:57 11:32 RBC (4.30-5.90) m/uL Hgb (13.0-17.5) gm/dL Hct (39.0-53.0) % RDW (11.5-15.5) % Plt Count (150-450) k/uL Lymphocytes # (1.0-4.8) k/uL ESR (0-20) mm/Hr BUN 85 H (9-20) mg/dL Creatinine 1.76 H (0.66-1.25) mg/dL Glucose 142 H (74-99) mg/dL POC Glucose (mg/dL) 220 H (70-110) mg/dL C-Reactive Protein (<1.0) mg/dL Microbiology - Last 24 Hours (Table) 10/30/23 14:26 Blood Culture - Preliminary Blood 10/31/23 16:25 Gram Stain - Preliminary Sputum Assessment and Plan (1) Pneumonia Current Visit: Yes Status: Acute Code(s): J18.9 - PNEUMONIA, UNSPECIFIED ORGANISM SNOMED Code(s): 333732697 Plan: 1patient presented to hospital with increasing shortness of breath weakness he also have cough and hemoptysis patient did have a history of COPD with evidence of pulmonary infiltrate concerning for possible component of pneumonia likely community-acquired versus fluid overload state 2-patient did have CRP of 4.8 and a procalcitonin of 0.10 3-blood and sputum culture has been obtained and currently pending 4-patient seem to have shown some clinical improvement and we will continue with Rocephin Zithromax while waiting for the culture to finalize Dictation was produced using [employer] dictation software. please excuse any grammatical, word or spelling errors. Time with Patient: Less than 30
--- NOTE | 2023-11-02 13:13 | P.PN ---
Subjective Progress Note Date: 11/02/23 Principal diagnosis: Shortness of breath. I am seeing this patient in consultation today 11/01/2023 after presented with progressively worsening exertional shortness of breath. Patient is a 78-year-old male with past medical history significant for severe cardiomyopathy with a baseline ejection fraction of 20-25%, nonsustained VT, AICD implantation, atrial fibrillation, hypertension, hyperlipidemia, and COPD. His PCP is Dr. Anderson. Patient presented to emergency room October 30 complaining mostly of severe exertional dyspnea. He can ambulate about 5-10 feet and then becomes severely short of breath. He also admits increased lower extremity swelling and abdominal firmness. He has history of heart failure. He takes Demadex routinely twice a day at home. He has been sleeping in his recliner because he gets short of breath when lying flat. He denies any chest pain, palpitations, syncope. He denies any fevers, cough. He does admit small amounts of hemoptysis. Patient states that he wears 2 L nasal cannula 15/05 at home. He states that his nose has been very dry, he admits to occasional epistaxis. Patient does have history of COPD as well, he normally takes a combination of Trelegy inhaler and albuterol when necessary. Patient is currently sitting up in bed, on 3 L/m nasal cannula, in no acute distress, Chest x-ray demonstrates cardiomegaly with diffuse interstitial and patchy opacities, especially mid and lower lungs. This is felt to reflect congestive heart failure, and the patient has been diuresing with Lasix 40 mg 3 times a day. Patient is also empirically covered with a combination of azithromycin and Rocephin. He's been afebrile. No leukocytosis on CBC. Procalcitonin level mildly elevated at 0.1. Negative for influenza, RSV, COVID-19. CBC from admission: WBC count 6.5, hemoglobin 10.6, hematocrit 33.4, platelets 117. D-dimer was elevated at 1.6. Clinical suspicion for PE is low. Patient was already anticoagulated on Eliquis on arrival. BMP from admission: Sodium 138, potassium 4.4, chloride 96, serum bicarb 24, BUN 76, creatinine 1.56, glucose 107. Troponin 0.033. NT proBNP significantly elevated at 20,700. Vital signs are stable. Progress note dated 11/02/2023. The patient is seen today in room 356. The patient was admitted with a diagnosis of CHF. Remains on oxygen by nasal cannula 3 L. He's not receiving any IV fluids. His breathing is much improved. His lower extremity edema is also much improved. Currently laboratory data includes a white count 5.5, he will benign 0.5, hematocrit 30.2, and platelet count 118,000. Sodium 137, potassium 4.3, chlorides 99, CO2 23, BUN 85, and creatinine 1.76. Glucose 142. Calcium 9.1. Albumin 3.8. Chest x-ray from today shows bilateral pulmonary congestion/CHF. Objective - Vital Signs Vital signs: Vital Signs Temp 97.6 F 11/02/23 12:00 Pulse 68 11/02/23 12:00 Resp 16 11/02/23 12:00 BP 103/57 11/02/23 12:00 Pulse Ox 95 11/02/23 12:00 FiO2 Intake & Output 11/01/23 11/02/23 11/02/23 18:59 06:59 18:59 Intake Total 380 120 477 Output Total 300 575 Balance 80 -455 477 Weight 106 kg 106 kg Intake: IV 20 Invasive Line 1 10 Invasive Line 2 10 Oral 360 120 477 Output: Urine 300 575 Other: Voiding Method Toilet Toilet Toilet Urinal Urinal Urinal - Exam No acute distress, oriented 3. Currently on 3 L of oxygen. No use of accessor y muscles, or conversational dyspnea, or audible wheezes. HEENT examination is grossly unremarkable. Mucous membranes are moist. No oral lesions. Neck supple. Full range of motion. No adenopathy thyromegaly or neck vein distention. Cardiovascular examination reveals regular rhythm rate. S1-S2 normal. No S3 or S4. No discernible murmur noted. Heart sounds are distant. Heart rate 74 bpm. Lungs reveal bilateral and mostly basilar crackles. No wheezes or rhonchi. Breath sounds equal bilaterally. Saturations are 95% on 3 L. Abdomen soft bowel sounds are heard. No masses or tenderness. Extremities are intact. No cyanosis or clubbing. There is 1+ to 2+ pitting edema. Chronic venous changes are also noted. Skin is without rash or lesion. Neurologic examination is brief but nonfocal. - Labs CBC & Chem 7: 11/02/23 07:57 11/02/23 07:57 Labs: Abnormal Lab Results - Last 24 Hours (Table) 11/01/23 11/01/23 11/01/23 Range/Units 14:58 14:58 16:33 RBC (4.30-5.90) m/uL Hgb (13.0-17.5) gm/dL Hct (39.0-53.0) % RDW (11.5-15.5) % Plt Count (150-450) k/uL Lymphocytes # (1.0-4.8) k/uL ESR 24 H (0-20) mm/Hr BUN (9-20) mg/dL Creatinine (0.66-1.25) mg/dL Glucose (74-99) mg/dL POC Glucose (mg/dL) 160 H (70-110) mg/dL C-Reactive Protein 4.8 H (<1.0) mg/dL 11/01/23 11/02/23 11/02/23 Range/Units 19:52 06:08 07:57 RBC 3.15 L (4.30-5.90) m/uL Hgb 9.5 L (13.0-17.5) gm/dL Hct 30.2 L (39.0-53.0) % RDW 16.5 H (11.5-15.5) % Plt Count 118 L (150-450) k/uL Lymphocytes # 0.4 L (1.0-4.8) k/uL ESR (0-20) mm/Hr BUN (9-20) mg/dL Creatinine (0.66-1.25) mg/dL Glucose (74-99) mg/dL POC Glucose (mg/dL) 204 H 173 H (70-110) mg/dL C-Reactive Protein (<1.0) mg/dL 11/02/23 11/02/23 Range/Units 07:57 11:32 RBC (4.30-5.90) m/uL Hgb (13.0-17.5) gm/dL Hct (39.0-53.0) % RDW (11.5-15.5) % Plt Count (150-450) k/uL Lymphocytes # (1.0-4.8) k/uL ESR (0-20) mm/Hr BUN 85 H (9-20) mg/dL Creatinine 1.76 H (0.66-1.25) mg/dL Glucose 142 H (74-99) mg/dL POC Glucose (mg/dL) 220 H (70-110) mg/dL C-Reactive Protein (<1.0) mg/dL Microbiology - Last 24 Hours (Table) 10/30/23 14:26 Blood Culture - Preliminary Blood 10/31/23 16:25 Gram Stain - Preliminary Sputum Assessment and Plan Assessment: Acute on chronic hypoxemic respiratory failure, likely secondary to an exacerbation of systolic congestive heart failure. Chronic obstructive pulmonary disease, appears stable on my evaluation. Chronic hypoxemic respiratory failure, secondary to above. Acute on chronic kidney disease. History of severe cardiomyopathy, with a baseline ejection fraction 20-25%, st atus post AICD implantation. History of nonsustained ventricular tachycardia. Chronic atrial fibrillation, stable. History of hypertension. History of hyperlipidemia. Obesity, with a BMI of 31.1 kg/m. Remote history of tobacco use. Plan: Plan dated 11/02/2023. The patient continues on all appropriate medications. He continues on bronchodilators, corticosteroids, etc. Labs x-rays, and medications are reviewed. The patient's overall prognosis remains guarded. He does have significant lower extremity edema, and some chronic venous stasis changes to the lower 70s. Labs, x-rays, and medications are reviewed. We will continue to follow along with this patient, and make recommendations were appropriate. The patient continues on oxygen at 3 L. Time with Patient: Less than 30
[2023-11-02 16:24] LABS: Glucose,Whole Blood 165 mg/dL (70-110)
[2023-11-02 20:03] LABS: Glucose,Whole Blood 188 mg/dL (70-110)
[2023-11-02] MEDS: METOPROLOL SUCCINATE (ER) 25 MG TAB.ER.24H PO SCH (20:26)
[2023-11-02] MEDS: ATORVASTATIN 10 MG TAB PO SCH (20:26)
[2023-11-02] MEDS: TAMSULOSIN 0.4 MG CAP.ER.24H PO SCH (20:26)
--- NOTE | 2023-11-02 22:43 | PN ---
PROGRESS NOTE DATE OF SERVICE: 11/02/2023 SUBJECTIVE: This 78-year-old gentleman admitted with combination of COPD and CHF acute exacerbation, improving significantly. The most recent chest x-ray which I reviewed personally showed bilateral lower lobe extensive lesions. OBJECTIVE: VITAL SIGNS: Pulse is 68, blood pressure 102/56, respirations 16. CHEST: Bilateral scattered rhonchi and crackles. ABDOMEN: Soft. NERVOUS SYSTEM: No focal deficits. LABORATORY DATA: Hemoglobin 9.5. ASSESSMENT: 1. Shortness of breath, possibly combination of COPD acute exacerbation and CHF acute exacerbation. 2. Possible bilateral interstitial pneumonia, possibly viral pneumonia versus gram- negative pneumonia versus COVID-19 pneumonia. 3. Elevated D-dimer. 4. Elevated procalcitonin, mild acute renal failure. 5. Anemia. 6. Thrombocytopenia. 7. Hypertension. 8. Hyperlipidemia. 9. History of AICD. 10.History of cardiomyopathy. 11.Full code. RECOMMENDATIONS: Recommended to continue current management, continue symptomatic treatment. Continue the antibiotics. Continue with the rest of the medications and closely follow. Increase ambulation. Guarded prognosis because of multiple complex medical issues and cultures are negative so far. Further recommendations to follow. Increase ambulation. Evaluate for home O2. MMODL / IJN: [id number] /
[2023-11-03 06:05] LABS: Glucose,Whole Blood 173 mg/dL (70-110)
[2023-11-03] MEDS: PANTOPRAZOLE 40 MG TABLET PO SCH (06:22)
[2023-11-03] MEDS: methylPREDNISolone SOD SUCCI 125 MG/2 ML VIAL IV SCH (06:22)
[2023-11-03] MEDS: INSULIN ASPART (NovoLOG) 100 UNIT/ML VIAL SQ SCH ×4 (06:23→21:38)
[2023-11-03] MEDS: IPRATROPIUM-ALBUTEROL 3 ML NEB INHALATION SCH ×4 (07:45→21:14)
[2023-11-03] MEDS: BUDESONIDE 1 MG/2 ML NEBU INHALATION SCH (07:45)
[2023-11-03 08:20] LABS: Anisocytosis Slight; Basophils % (A) 0 %; Eosinophils % (A) 0 %; HCT 32.2 % (39.0-53.0); HGB 9.7 gm/dL (13.0-17.5); Hypochromasia Marked; Lymphocytes # (A) 0.4 k/uL (1.0-4.8); Lymphocytes % (A) 6 %; MCH 29.6 pg (25.0-35.0); MCHC 30.2 g/dL (31.0-37.0); Macrocytosis Slight; Mean Platelet Volume 9.8; Monocytes # (A) 0.2 k/uL (0-1.0); Monocytes % (A) 3 %; Neutrophils # (A) 5.5 k/uL (1.3-7.7); Neutrophils % (A) 90 %; Platelet Count 127 k/uL (150-450); RBC 3.28 m/uL (4.30-5.90); RDW 16.6 % (11.5-15.5); WBC 6.1 k/uL (3.8-10.6)
[2023-11-03 08:40] LABS: African American GFR (CKD) 31 (>60 ml/min/1.73 sqM); Anion Gap 18 mmol/L; Blood Urea Nitrogen 98 mg/dL (9-20); Calcium 9.1 mg/dL (8.4-10.2); Carbon Dioxide 23 mmol/L (22-30); Chloride 97 mmol/L (98-107); Glucose 154 mg/dL (74-99); Non-African American GFR(CKD) 27 (>60 ml/min/1.73 sqM); Potassium 4.3 mmol/L (3.5-5.1); Sodium 138 mmol/L (137-145)
[2023-11-03] MEDS: FERROUS SULFATE 325 MG TAB PO SCH (09:18)
[2023-11-03] MEDS: FUROSEMIDE 10 MG/ML 4 ML VIAL IV SCH (09:18)
[2023-11-03] MEDS: allopurinoL 300 MG TAB PO SCH (09:18)
[2023-11-03] MEDS: APIXABAN 5 MG TAB PO SCH (09:18)
[2023-11-03] MEDS: SPIRONOLACTONE 25 MG TAB PO SCH (09:18)
[2023-11-03] MEDS: SACUBITRIL/VALSARTAN 49 MG-51 MG TABLET PO SCH ×2 (09:19→21:39)
--- NOTE | 2023-11-03 11:37 | P.PN ---
Subjective Progress Note Date: 11/03/23 Principal diagnosis: Shortness of breath. I am seeing this patient in consultation today 11/01/2023 after presented with progressively worsening exertional shortness of breath. Patient is a 78-year-old male with past medical history significant for severe cardiomyopathy with a baseline ejection fraction of 20-25%, nonsustained VT, AICD implantation, atrial fibrillation, hypertension, hyperlipidemia, and COPD. His PCP is Dr. Anderson. Patient presented to emergency room October 30 complaining mostly of severe exertional dyspnea. He can ambulate about 5-10 feet and then becomes severely short of breath. He also admits increased lower extremity swelling and abdominal firmness. He has history of heart failure. He takes Demadex routinely twice a day at home. He has been sleeping in his recliner because he gets short of breath when lying flat. He denies any chest pain, palpitations, syncope. He denies any fevers, cough. He does admit small amounts of hemoptysis. Patient states that he wears 2 L nasal cannula 15/05 at home. He states that his nose has been very dry, he admits to occasional epistaxis. Patient does have history of COPD as well, he normally takes a combination of Trelegy inhaler and albuterol when necessary. Patient is currently sitting up in bed, on 3 L/m nasal cannula, in no acute distress, Chest x-ray demonstrates cardiomegaly with diffuse interstitial and patchy opacities, especially mid and lower lungs. This is felt to reflect congestive heart failure, and the patient has been diuresing with Lasix 40 mg 3 times a day. Patient is also empirically covered with a combination of azithromycin and Rocephin. He's been afebrile. No leukocytosis on CBC. Procalcitonin level mildly elevated at 0.1. Negative for influenza, RSV, COVID-19. CBC from admission: WBC count 6.5, hemoglobin 10.6, hematocrit 33.4, platelets 117. D-dimer was elevated at 1.6. Clinical suspicion for PE is low. Patient was already anticoagulated on Eliquis on arrival. BMP from admission: Sodium 138, potassium 4.4, chloride 96, serum bicarb 24, BUN 76, creatinine 1.56, glucose 107. Troponin 0.033. NT proBNP significantly elevated at 20,700. Vital signs are stable. Progress note dated 11/02/2023. The patient is seen today in room 356. The patient was admitted with a diagnosis of CHF. Remains on oxygen by nasal cannula 3 L. He's not receiving any IV fluids. His breathing is much improved. His lower extremity edema is also much improved. Currently laboratory data includes a white count 5.5, he will benign 0.5, hematocrit 30.2, and platelet count 118,000. Sodium 137, potassium 4.3, chlorides 99, CO2 23, BUN 85, and creatinine 1.76. Glucose 142. Calcium 9.1. Albumin 3.8. Chest x-ray from today shows bilateral pulmonary congestion/CHF. Progress note dated 11/03/2023. 78-year-old male seen today in room 356. He was admitted with a diagnosis of CHF. Currently, the patient sitting up in a chair, next to his hospital bed. H e is in no distress. He is taking oxygen at 3 L. He's not receiving any IV fluids. Labs today include a white count 6.1, he will benign 0.7, hematocrit 32.2, and a platelet count of 127,000. Sodium 138, potassium 4.3, chlorides 97, CO2 23, anion gap 18, BUN 98, creatinine 2.26. Glucose 154. Calcium is 9.1. Chest x-ray from yesterday shows a pattern of CHF. Objective - Vital Signs Vital signs: Vital Signs Temp 98 F 11/03/23 08:00 Pulse 80 11/03/23 11:20 Resp 16 11/03/23 08:00 BP 90/44 11/03/23 08:00 Pulse Ox 98 11/03/23 08:00 FiO2 Intake & Output 11/02/23 11/03/23 11/03/23 18:59 06:59 18:59 Intake Total 1277 118 Output Total 500 400 Balance 777 -400 118 Weight 105.5 kg Intake: Oral 1277 118 Output: Urine 500 400 Other: Voiding Method Toilet Toilet Toilet Urinal Urinal Urinal - Exam No acute distress, oriented 3. Currently on 3 L of oxygen. No use of accessory muscles, or conversational dyspnea, or audible wheezes. HEENT examination is grossly unremarkable. Mucous membranes are moist. No oral lesions. Neck supple. Full range of motion. No adenopathy thyromegaly or neck vein distention. Cardiovascular examination reveals regular rhythm rate. S1-S2 normal. No S3 or S4. No discernible murmur noted. Heart sounds are distant. Heart rate 80 bpm. Lungs reveal bilateral and mostly basilar crackles. No wheezes or rhonchi. Breath sounds equal bilaterally. Saturations are 98 % on 3 L. Abdomen soft bowel sounds are heard. No masses or tenderness. Extremities are intact. No cyanosis or clubbing. There is 1+ to 2+ pitting edema. Chronic venous changes are also noted. Skin is without rash or lesion. Neurologic examination is brief but nonfocal. - Labs CBC & Chem 7: 11/03/23 07:08 11/03/23 07:08 Labs: Abnormal Lab Results - Last 24 Hours (Table) 11/02/23 11/02/23 11/02/23 Range/Units 11:32 16:22 19:59 RBC (4.30-5.90) m/uL Hgb (13.0-17.5) gm/dL Hct (39.0-53.0) % MCHC (31.0-37.0) g/dL RDW (11.5-15.5) % Plt Count (150-450) k/uL Lymphocytes # (1.0-4.8) k/uL Chloride (98-107) mmol/L BUN (9-20) mg/dL Creatinine (0.66-1.25) mg/dL Glucose (74-99) mg/dL POC Glucose (mg/dL) 220 H 165 H 188 H (70-110) mg/dL 11/03/23 11/03/23 11/03/23 Range/Units 06:03 07:08 07:08 RBC 3.28 L (4.30-5.90) m/uL Hgb 9.7 L (13.0-17.5) gm/dL Hct 32.2 L (39.0-53.0) % MCHC 30.2 L (31.0-37.0) g/dL RDW 16.6 H (11.5-15.5) % Plt Count 127 L (150-450) k/uL Lymphocytes # 0.4 L (1.0-4.8) k/uL Chloride 97 L (98-107) mmol/L BUN 98 H (9-20) mg/dL Creatinine 2.26 H (0.66-1.25) mg/dL Glucose 154 H (74-99) mg/dL POC Glucose (mg/dL) 173 H (70-110) mg/dL Microbiology - Last 24 Hours (Table) 10/31/23 16:25 Gram Stain - Final Sputum Sputum Culture - Final 10/30/23 14:26 Blood Culture - Preliminary Blood Assessment and Plan Assessment: Acute on chronic hypoxemic respiratory failure, likely secondary to an exacerbation of systolic congestive heart failure. Chronic obstructive pulmonary disease, appears stable on my evaluation. Chronic hypoxemic respiratory failure, secondary to above. Acute on chronic kidney disease. History of severe cardiomyopathy, with a baseline ejection fraction 20-25%, status post AICD implantation. History of nonsustained ventricular tachycardia. Chronic atrial fibrillation, stable. History of hypertension. History of hyperlipidemia. Obesity, with a BMI of 31.1 kg/m. Remote history of tobacco use. Plan: Plan dated 11/02/2023. The patient continues on all appropriate medications. He continues on bronchodilators, corticosteroids, etc. Labs x-rays, and medications are reviewed. The patient's overall prognosis remains guarded. He does have significant lower extremity edema, and some chronic venous stasis changes to the lower 70s. Labs, x-rays, and medications are reviewed. We will continue to follow along with this patient, and make recommendations were appropriate. The patient continues on oxygen at 3 L. Plan dated 11/03/2023. The patient's doing better. Is currently on 3 L with saturations of 98%. He denies any significant respiratory distress or difficulty. His vital signs, are stable. Labs, x-rays, and medications are reviewed. The patient continues on Flomax, Aldactone, metoprolol, Zaroxolyn, Lasix, and Eliquis. We will continue to follow the patient, make recommendations along the way. Prognosis is guarded. Time with Patient: Less than 30
[2023-11-03 11:43] LABS: Glucose,Whole Blood 189 mg/dL (70-110)
--- NOTE | 2023-11-03 13:11 | P.PN ---
Subjective Progress Note Date: 11/03/23 Principal diagnosis: Reason for follow-up is pneumonia Patient is a 78-year-old male with a past medical history significant for hypertension hyperlipidemia osteoarthritis reflux COPD presenting to the hospital for evaluation of weakness, also complaining of cough and hemoptysis chest x-ray with cardiomegaly interstitial infiltrate and right middle lower lobe infiltrate concerning for possible pneumonia. On today's evaluation that is 11/03/2023 patient remains to be afebrile, the patient is breathing comfortably on 3 L nasal cannula oxygen, patient denies chest pain cough is decreased intensity with occasional sputum production no nausea vomiting no abdominal pain and no diarrhea. Patient has been complaining about the fluid restriction Patient did have white count of 6.1, creatinine is 2.26, CRP was 4.8, Pro-Kenan 0.10 blood and sputum cultures currently pending Objective - Vital Signs Vital signs: Vital Signs Temp 97.6 F 11/03/23 12:00 Pulse 102 H 11/03/23 12:00 Resp 16 11/03/23 12:00 BP 95/60 11/03/23 12:00 Pulse Ox 100 11/03/23 12:00 FiO2 Intake & Output 11/02/23 11/03/23 11/03/23 18:59 06:59 18:59 Intake Total 1277 118 Output Total 500 400 Balance 777 -400 118 Weight 105.5 kg Intake: Oral 1277 118 Output: Urine 500 400 Other: Voiding Method Toilet Toilet Toilet Urinal Urinal Urinal - Exam GENERAL DESCRIPTION: An elderly male up in the chair in no distress RESPIRATORY SYSTEM: Unlabored breathing , decreased breath sounds at bases HEART: S1 S2 regular rate and rhythm , ABDOMEN: Soft , no tenderness EXTREMITIES: No edema feet - Labs CBC & Chem 7: 11/03/23 07:08 11/03/23 07:08 Labs: Abnormal Lab Results - Last 24 Hours (Table) 11/02/23 11/02/23 11/03/23 Range/Units 16:22 19:59 06:03 RBC (4.30-5.90) m/uL Hgb (13.0-17.5) gm/dL Hct (39.0-53.0) % MCHC (31.0-37.0) g/dL RDW (11.5-15.5) % Plt Count (150-450) k/uL Lymphocytes # (1.0-4.8) k/uL Chloride (98-107) mmol/L BUN (9-20) mg/dL Creatinine (0.66-1.25) mg/dL Glucose (74-99) mg/dL POC Glucose (mg/dL) 165 H 188 H 173 H (70-110) mg/dL 11/03/23 11/03/23 11/03/23 Range/Units 07:08 07:08 11:42 RBC 3.28 L (4.30-5.90) m/uL Hgb 9.7 L (13.0-17.5) gm/dL Hct 32.2 L (39.0-53.0) % MCHC 30.2 L (31.0-37.0) g/dL RDW 16.6 H (11.5-15.5) % Plt Count 127 L (150-450) k/uL Lymphocytes # 0.4 L (1.0-4.8) k/uL Chloride 97 L (98-107) mmol/L BUN 98 H (9-20) mg/dL Creatinine 2.26 H (0.66-1.25) mg/dL Glucose 154 H (74-99) mg/dL POC Glucose (mg/dL) 189 H (70-110) mg/dL Microbiology - Last 24 Hours (Table) 10/31/23 16:25 Gram Stain - Final Sputum Sputum Culture - Final 10/30/23 14:26 Blood Culture - Preliminary Blood Assessment and Plan (1) Pneumonia Current Visit: Yes Status: Acute Code(s): J18.9 - PNEUMONIA, UNSPECIFIED ORGANISM SNOMED Code(s): 703629755 Plan: 1patient presented to hospital with increasing shortness of breath weakness he also have cough and hemoptysis patient did have a history of COPD with evidence of pulmonary infiltrate concerning for possible component of pneumonia likely community-acquired versus fluid overload state 2-patient did have CRP of 4.8 and a procalcitonin of 0.10 3-blood and sputum culture has been obtained and so far negative 4-patient seem to have shown some clinical improvement, Rocephin has been discontinued by pulmonary patient be monitored closely off antibiotic therapy at this point Dictation was produced using [employer] software. please excuse any grammatical, word or spelling errors. Time with Patient: Less than 30
--- NOTE | 2023-11-03 13:26 | P.PN ---
Subjective HISTORY OF PRESENT ILLNESS: This is a 78 year old male with a past medical history significant for coronary artery disease, nonischemic cardiomyopathy, AICD implantation, paroxysmal atrial fibrillation, hypertension, hyperlipidemia, and valvular heart disease. Patient follows in the office with Dr. Reid. We have been asked to see the patient in consultation for congestive heart failure. Patient examined at the bedside. Patient is currently sitting up in the chair. Patient states he presented to the hospital with a chief complaint of shortness of breath. He denied having any chest pain or pressure. The patient was started on IV Lasix 40 mg every 8 hours. He has also been started on IV steroids per primary medicine. Vital signs are stable. * EKG reveals atrial fibrillation with controlled ventricular rate. PVCs. * Chest xray cardiomegaly with diffuse interstitial and patchy opacities especially in the mid and lower lungs. Correlate for CHF with patchy pulmonary edema versus multifocal pneumonia * Laboratory data: Troponin negative 1. ProBNP 20,700. * Most recent echocardiogram obtained in April 2022 revealed ejection fraction 20-25%, trace to mild mitral regurgitation, mild aortic regurgitation, mild- to-moderate tricuspid regurgitation * Cardiac catheterization history: January 2018 with 50% lesion in the mid LAD 11/02/2023 Patient examined this morning at the bedside. Patient denies chest pain or pressure. He continues to report shortness of breath although improving. He re kathy on IV diuresis. Creatinine increased today from 1.51-1.76. Telemetry reveals atrial fibrillation with a heart rate in the 70s. Blood pressure stable at 103/57. Chest x-ray completed today reveals ongoing CHF with patchy pulmonary edema 11/03/2023 Patient examined this morning the bedside. Patient currently denies chest pain or pressure. He reports shortness of breath with exertion. He remains on IV Lasix. Creatinine worsened today at 2.26, up from 1.76 yesterday. PHYSICAL EXAM: VITAL SIGNS: Reviewed. GENERAL: Well-developed in no acute distress. HEENT: Head is normocephalic. Pupils are equal, round. Sclerae anicteric. Mucous membranes of the mouth are moist. Neck supple. No JVD or thyromegaly LUNGS: Respirations even and unlabored. Lungs diminished with bibasilar crackles HEART: Irregular rate and rhythm. S1 and S2 heard. ABDOMEN: Soft. Nondistended. Nontender. EXTREMITIES: Normal range of motion. No clubbing or cyanosis. Peripheral pulses intact. 2+ bilateral pitting lower extremity edema NEUROLOGIC: Awake and alert. Oriented x 3. ASSESSMENT: Shortness of breath Acute on chronic heart failure with reduced ejection fraction, 20-25% Nonischemic cardiomyopathy History of AICD implantation Nonobstructive coronary artery disease with 50% lesion in the mid LAD Paroxysmal atrial fibrillation History of COPD Hypertension Hyperlipidemia Valvular heart disease Acute on chronic kidney disease PLAN: No need to repeat echocardiogram at this time Continue home cardiac medications Lasix discontinued this afternoon secondary to worsening kidney function Daily weights, accurate I&O, and monitoring of kidney function Patient's prognosis remains guarded. Patient may benefit from palliative care consultation Further recommendations pending patient's course Nurse practitioner note has been reviewed by physician. Signing provider agrees with the documented findings, assessment, and plan of care. Objective - Vital Signs Vital signs: Vital Signs Temp 97.6 F 11/03/23 12:00 Pulse 102 H 11/03/23 12:00 Resp 16 11/03/23 12:00 BP 95/60 11/03/23 12:00 Pulse Ox 100 11/03/23 12:00 FiO2 Intake & Output 11/02/23 11/03/23 11/03/23 18:59 06:59 18:59 Intake Total 1277 118 Output Total 500 400 Balance 777 -400 118 Weight 105.5 kg Intake: Oral 1277 118 Output: Urine 500 400 Other: Voiding Method Toilet Toilet Toilet Urinal Urinal Urinal - Labs CBC & Chem 7: 11/03/23 07:08 11/03/23 07:08 Labs: Abnormal Lab Results - Last 24 Hours (Table) 11/02/23 11/02/23 11/03/23 Range/Units 16:22 19:59 06:03 RBC (4.30-5.90) m/uL Hgb (13.0-17.5) gm/dL Hct (39.0-53.0) % MCHC (31.0-37.0) g/dL RDW (11.5-15.5) % Plt Count (150-450) k/uL Lymphocytes # (1.0-4.8) k/uL Chloride (98-107) mmol/L BUN (9-20) mg/dL Creatinine (0.66-1.25) mg/dL Glucose (74-99) mg/dL POC Glucose (mg/dL) 165 H 188 H 173 H (70-110) mg/dL 11/03/23 11/03/23 11/03/23 Range/Units 07:08 07:08 11:42 RBC 3.28 L (4.30-5.90) m/uL Hgb 9.7 L (13.0-17.5) gm/dL Hct 32.2 L (39.0-53.0) % MCHC 30.2 L (31.0-37.0) g/dL RDW 16.6 H (11.5-15.5) % Plt Count 127 L (150-450) k/uL Lymphocytes # 0.4 L (1.0-4.8) k/uL Chloride 97 L (98-107) mmol/L BUN 98 H (9-20) mg/dL Creatinine 2.26 H (0.66-1.25) mg/dL Glucose 154 H (74-99) mg/dL POC Glucose (mg/dL) 189 H (70-110) mg/dL Microbiology - Last 24 Hours (Table) 10/31/23 16:25 Gram Stain - Final Sputum Sputum Culture - Final 10/30/23 14:26 Blood Culture - Preliminary Blood
--- NOTE | 2023-11-03 13:50 | PN ---
PROGRESS NOTE DATE OF SERVICE: 11/03/2023 SUBJECTIVE: This 78-year-old gentleman admitted with COPD and CHF exacerbation, closely monitored at this time. The patient also had bilateral interstitial pneumonia. Today, the patient is not feeling good. Creatinine has gone up and the patient is mildly tachycardic also. Blood pressure is borderline at 95/60. PAST MEDICAL HISTORY: Reviewed. REVIEW OF SYSTEMS: A 14-point review is negative except as mentioned earlier. CURRENT MEDICATIONS: Reviewed include Eliquis, DuoNeb, and rest of medications reviewed. PHYSICAL EXAMINATION: VITAL SIGNS: Pulse is 102, blood pressure 90/60, respirations 16. CHEST: Few scattered rhonchi and crackles. ABDOMEN: Soft. NERVOUS SYSTEM: Nonfocal. LABS: Hemoglobin 9.7, creatinine is 2.26. ASSESSMENT: 1. Shortness of breath, possibly combination of COPD acute exacerbation, CHF acute exacerbation. 2. Possible bilateral interstitial pneumonia, possibly viral pneumonia versus gram- negative pneumonia versus COVID-19 pneumonia. 3. Acute renal failure. 4. Elevated D-dimer. 5. Elevated procalcitonin. 6. Anemia. 7. Thrombocytopenia. 8. Hypertension. 9. Hyperlipidemia. 10.History of AICD. 11.History of cardiomyopathy. 12.Full code. RECOMMENDATIONS: Recommended to continue current management, continue symptomatic treatment. Otherwise, at this time I will recommend to hold the Lasix and Nephrology consultations. Continue to monitor. Guarded prognosis. Further recommendations to follow. See orders for details. We will avoid nephrotoxic agents. MMODL / IJN: [id number] /
[2023-11-03 16:46] LABS: Glucose,Whole Blood 167 mg/dL (70-110)
[2023-11-03 20:13] LABS: Glucose,Whole Blood 170 mg/dL (70-110)
[2023-11-03] MEDS: ATORVASTATIN 10 MG TAB PO SCH (21:38)
[2023-11-03] MEDS: APIXABAN 2.5 MG TABLET PO SCH (21:38)
[2023-11-03] MEDS: METOPROLOL SUCCINATE (ER) 25 MG TAB.ER.24H PO SCH (21:38)
[2023-11-03] MEDS: TAMSULOSIN 0.4 MG CAP.ER.24H PO SCH (21:39)
[2023-11-04 06:13] LABS: Glucose,Whole Blood 151 mg/dL (70-110)
[2023-11-04] MEDS: PANTOPRAZOLE 40 MG TABLET PO SCH (06:32)
[2023-11-04] MEDS: INSULIN ASPART (NovoLOG) 100 UNIT/ML VIAL SQ SCH ×4 (06:32→21:16)
[2023-11-04] MEDS: IPRATROPIUM-ALBUTEROL 3 ML NEB INHALATION SCH ×4 (07:52→21:05)
[2023-11-04] MEDS: SACUBITRIL/VALSARTAN 49 MG-51 MG TABLET PO SCH ×2 (08:46→21:23)
[2023-11-04] MEDS: FERROUS SULFATE 325 MG TAB PO SCH (08:46)
[2023-11-04] MEDS: APIXABAN 2.5 MG TABLET PO SCH ×2 (08:46→21:24)
[2023-11-04] MEDS: allopurinoL 300 MG TAB PO SCH (08:46)
[2023-11-04] MEDS: SODIUM CHLORIDE 0.65% NASAL SPRAY 44 ML BTL NASAL PRN (08:46)
[2023-11-04] MEDS: SPIRONOLACTONE 25 MG TAB PO SCH (08:46)
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
[2023-11-04 11:24] LABS: Glucose,Whole Blood 178 mg/dL (70-110)
--- NOTE | 2023-11-04 11:41 | P.PN ---
Subjective HISTORY OF PRESENT ILLNESS: This is a 78 year old male with a past medical history significant for coronary artery disease, nonischemic cardiomyopathy, AICD implantation, paroxysmal atrial fibrillation, hypertension, hyperlipidemia, and valvular heart disease. Patient follows in the office with Dr. Reid. We have been asked to see the patient in consultation for congestive heart failure. Patient examined at the bedside. Patient is currently sitting up in the chair. Patient states he presented to the hospital with a chief complaint of shortness of breath. He denied having any chest pain or pressure. The patient was started on IV Lasix 40 mg every 8 hours. He has also been started on IV steroids per primary medicine. Vital signs are stable. * EKG reveals atrial fibrillation with controlled ventricular rate. PVCs. * Chest xray cardiomegaly with diffuse interstitial and patchy opacities especially in the mid and lower lungs. Correlate for CHF with patchy pulmonary edema versus multifocal pneumonia * Laboratory data: Troponin negative 1. ProBNP 20,700. * Most recent echocardiogram obtained in April 2022 revealed ejection fraction 20-25%, trace to mild mitral regurgitation, mild aortic regurgitation, mild- to-moderate tricuspid regurgitation * Cardiac catheterization history: January 2018 with 50% lesion in the mid LAD 11/02/2023 Patient examined this morning at the bedside. Patient denies chest pain or pressure. He continues to report shortness of breath although improving. He re kathy on IV diuresis. Creatinine increased today from 1.51-1.76. Telemetry reveals atrial fibrillation with a heart rate in the 70s. Blood pressure stable at 103/57. Chest x-ray completed today reveals ongoing CHF with patchy pulmonary edema 11/03/2023 Patient examined this morning the bedside. Patient currently denies chest pain or pressure. He reports shortness of breath with exertion. He remains on IV Lasix. Creatinine worsened today at 2.26, up from 1.76 yesterday. 11/04/2023 Patient examined this morning at the bedside. Patient's diuretics were discontinued yesterday secondary to worsening kidney function. Patient currently denies chest pain or pressure. He denies shortness of breath. His lower extremity edema has improved. Vital signs are stable. PHYSICAL EXAM: VITAL SIGNS: Reviewed. GENERAL: Well-developed in no acute distress. HEENT: Head is normocephalic. Pupils are equal, round. Sclerae anicteric. Mucous membranes of the mouth are moist. Neck supple. No JVD or thyromegaly LUNGS: Respirations even and unlabored. Lungs diminished at the bases HEART: Irregular rate and rhythm. S1 and S2 heard. ABDOMEN: Soft. Nondistended. Nontender. EXTREMITIES: Normal range of motion. No clubbing or cyanosis. Peripheral pulses intact. 1+ bilateral pitting lower extremity edema NEUROLOGIC: Awake and alert. Oriented x 3. ASSESSMENT: Shortness of breath Acute on chronic heart failure with reduced ejection fraction, 20-25% Nonischemic cardiomyopathy History of AICD implantation Nonobstructive coronary artery disease with 50% lesion in the mid LAD Paroxysmal atrial fibrillation History of COPD Hypertension Hyperlipidemia Valvular heart disease Acute on chronic kidney disease PLAN: Continue current cardiac medications Diuretics are currently on hold. Nephrology has been consulted. Repeat kidney function in a.m. Further recommendations pending patient's course Nurse practitioner note has been reviewed by physician. Signing provider agrees with the documented findings, assessment, and plan of care. Objective - Vital Signs Vital signs: Vital Signs Temp 97.4 F L 11/04/23 08:00 Pulse 78 11/04/23 11:32 Resp 18 11/04/23 08:00 BP 112/62 11/04/23 08:00 Pulse Ox 98 11/04/23 08:00 FiO2 Intake & Output 11/03/23 11/04/23 11/04/23 18:59 06:59 18:59 Intake Total 358 Output Total 800 Balance 358 -800 Weight 108.2 kg Intake: Oral 358 Output: Urine 800 Other: Voiding Method Toilet Toilet Toilet Urinal Urinal Urinal - Labs CBC & Chem 7: 11/03/23 07:08 11/03/23 07:08 Labs: Abnormal Lab Results - Last 24 Hours (Table) 11/03/23 11/03/23 11/03/23 Range/Units 11:42 16:44 20:10 POC Glucose (mg/dL) 189 H 167 H 170 H (70-110) mg/dL 11/04/23 11/04/23 Range/Units 06:11 11:21 POC Glucose (mg/dL) 151 H 178 H (70-110) mg/dL Microbiology - Last 24 Hours (Table) 10/31/23 16:25 Gram Stain - Final Sputum Sputum Culture - Final
--- NOTE | 2023-11-04 12:07 | CA ---
Transthoracic Echo Report Name: Kristel Harris Age: 78 Gender: M : 1945 Exam Date: 11/03/2023 15:44 Exam Location: [facility] Ht (in): 73 Wt (lb): 232 Ordering Physician: Gilbert Tellez MD Attending/Referring Phys: Admissions Clinician Clara Neal RDCS Procedure CPT: Indications: chf Cardiac Hx: Technical Quality: Fair Contrast 1: Total Dose (mL): Contrast 2: Total Dose (mL): MEASUREMENTS (Male / Female) Normal Values 2D ECHO LV Diastolic Diameter PLAX 6.5 cm 4.2 - 5.9 / 3.9 - 5.3 cm LV Systolic Diameter PLAX 5.7 cm IVS Diastolic Thickness 1.3 cm 0.6 - 1.0 / 0.6 - 0.9 cm LVPW Diastolic Thickness 1.6 cm 0.6 - 1.0 / 0.6 - 0.9 cm LV Relative Wall Thickness 0.5 RV Internal Dim ED PLAX 5.1 cm LA Volume 199.4 cm??? 18 - 58 / 22 - 52 cm??? LA Volume Index 84.7 cm???/m??? 16 - 28 cm???/m??? M-MODE Aortic Root Diameter MM 4.0 cm LA Systolic Diameter MM 7.0 cm LA Ao Ratio MM 1.8 AV Cusp Separation MM 2.6 cm DOPPLER AV Peak Velocity 136.0 cm/s AV Peak Gradient 7.4 mmHg AV Mean Velocity 95.9 cm/s AV Mean Gradient 4.0 mmHg AV Velocity Time Integral 25.5 cm AI Peak Velocity 397.5 cm/s AI Peak Gradient 63.2 mmHg AI Pressure Half Time 867.9 ms LVOT Peak Velocity 67.7 cm/s LVOT Peak Gradient 1.8 mmHg LVOT Velocity Time Integral 12.7 cm MV Area PHT 5.0 cm??? Mitral E Point Velocity 98.4 cm/s Mitral A Point Velocity 0.2 cm/s Mitral E to A Ratio 446.4 MV Deceleration Time 151.9 ms MV E' Velocity 2.8 cm/s Mitral E to MV E' Ratio 34.8 TR Peak Velocity 339.6 cm/s TR Peak Gradient 46.1 mmHg Right Ventricular Systolic Press 48.0 mmHg FINDINGS Left Ventricle Mildly increased left ventricular wall thickness. Left ventricular dilatation. Moderately reduced global left ventricular systolic function. Left ventricular ejection fraction is estimated at 30-35 %. Right Ventricle Severe right ventricular dilatation. Moderate pulmonary hypertension. Right ventricular systolic pressure estimated at 50 mm hg. Right Atrium Right atrial dilatation. Left Atrium Severely increased left atrial volume. Severely increased left atrial area. Mitral Valve Structurally normal mitral valve. Mitral annular calcification. Mild-to- moderate mitral regurgitation. Aortic Valve Trileaflet aortic valve. Thickened aortic valve without stenosis. Mild aortic regurgitation. Tricuspid Valve Structurally normal tricuspid valve. [id number] tricuspid regurgitation. Pulmonic Valve Trace pulmonic regurgitation. Pericardium Small pericardial effusion. Aorta Normal size aortic root and proximal ascending aorta. CONCLUSIONS Impaired LV function with an EF of 30% Previewed by: Dr. Brett Reid MD (Electronically Signed) Final Date: 04 November 2023 12:06
--- NOTE | 2023-11-04 12:28 | P.PN ---
Subjective Progress Note Date: 11/04/23 Principal diagnosis: Shortness of breath. I am seeing this patient in consultation today 11/01/2023 after presented with progressively worsening exertional shortness of breath. Patient is a 78-year-old male with past medical history significant for severe cardiomyopathy with a baseline ejection fraction of 20-25%, nonsustained VT, AICD implantation, atrial fibrillation, hypertension, hyperlipidemia, and COPD. His PCP is Dr. Anderson. Patient presented to emergency room October 30 complaining mostly of severe exertional dyspnea. He can ambulate about 5-10 feet and then becomes severely short of breath. He also admits increased lower extremity swelling and abdominal firmness. He has history of heart failure. He takes Demadex routinely twice a day at home. He has been sleeping in his recliner because he gets short of breath when lying flat. He denies any chest pain, palpitations, syncope. He denies any fevers, cough. He does admit small amounts of hemoptysis. Patient states that he wears 2 L nasal cannula 15/05 at home. He states that his nose has been very dry, he admits to occasional epistaxis. Patient does have history of COPD as well, he normally takes a combination of Trelegy inhaler and albuterol when necessary. Patient is currently sitting up in bed, on 3 L/m nasal cannula, in no acute distress, Chest x-ray demonstrates cardiomegaly with diffuse interstitial and patchy opacities, especially mid and lower lungs. This is felt to reflect congestive heart failure, and the patient has been diuresing with Lasix 40 mg 3 times a day. Patient is also empirically covered with a combination of azithromycin and Rocephin. He's been afebrile. No leukocytosis on CBC. Procalcitonin level mildly elevated at 0.1. Negative for influenza, RSV, COVID-19. CBC from admission: WBC count 6.5, hemoglobin 10.6, hematocrit 33.4, platelets 117. D-dimer was elevated at 1.6. Clinical suspicion for PE is low. Patient was already anticoagulated on Eliquis on arrival. BMP from admission: Sodium 138, potassium 4.4, chloride 96, serum bicarb 24, BUN 76, creatinine 1.56, glucose 107. Troponin 0.033. NT proBNP significantly elevated at 20,700. Vital signs are stable. Progress note dated 11/02/2023. The patient is seen today in room 356. The patient was admitted with a diagnosis of CHF. Remains on oxygen by nasal cannula 3 L. He's not receiving any IV fluids. His breathing is much improved. His lower extremity edema is also much improved. Currently laboratory data includes a white count 5.5, he will benign 0.5, hematocrit 30.2, and platelet count 118,000. Sodium 137, potassium 4.3, chlorides 99, CO2 23, BUN 85, and creatinine 1.76. Glucose 142. Calcium 9.1. Albumin 3.8. Chest x-ray from today shows bilateral pulmonary congestion/CHF. Progress note dated 11/03/2023. 78-year-old male seen today in room 356. He was admitted with a diagnosis of CHF. Currently, the patient sitting up in a chair, next to his hospital bed. H e is in no distress. He is taking oxygen at 3 L. He's not receiving any IV fluids. Labs today include a white count 6.1, he will benign 0.7, hematocrit 32.2, and a platelet count of 127,000. Sodium 138, potassium 4.3, chlorides 97, CO2 23, anion gap 18, BUN 98, creatinine 2.26. Glucose 154. Calcium is 9.1. Chest x-ray from yesterday shows a pattern of CHF. Progress note dated 11/04/2023. 78-year-old male, seen today in room 356. The patient was admitted with a diagnosis of CHF. The patient generally doing better. He continues on 3 L of oxygen, by nasal cannula. He's not receiving any IV fluids. He is sitting in a chair, next to his hospital bed. His legs or up. The patient continues with lower extremity edema, and chronic venous stasis changes. Current laboratory includes a glucose of 151. Objective - Vital Signs Vital signs: Vital Signs Temp 97.4 F L 11/04/23 08:00 Pulse 78 11/04/23 11:32 Resp 18 11/04/23 08:00 BP 112/62 11/04/23 08:00 Pulse Ox 98 11/04/23 08:00 FiO2 Intake & Output 11/03/23 11/04/23 11/04/23 18:59 06:59 18:59 Intake Total 358 Output Total 800 Balance 358 -800 Weight 108.2 kg Intake: Oral 358 Output: Urine 800 Other: Voiding Method Toilet Toilet Toilet Urinal Urinal Urinal - Exam No acute distress, oriented 3. Currently on 3 L of oxygen. No use of accessory muscles, or conversational dyspnea, or audible wheezes. HEENT examination is grossly unremarkable. Mucous membranes are moist. No oral lesions. Neck supple. Full range of motion. No adenopathy thyromegaly or neck vein distention. Cardiovascular examination reveals regular rhythm rate. S1-S2 normal. No S3 or S4. No discernible murmur noted. Heart sounds are distant. Heart rate 88 bpm. Lungs reveal bilateral and mostly basilar crackles. No wheezes or rhonchi. Breath sounds equal bilaterally. Saturations are 98 % on 3 L. Abdomen soft bowel sounds are heard. No masses or tenderness. Extremities are intact. No cyanosis or clubbing. There is 1+ to 2+ pitting edema. Chronic venous changes are also noted. Skin is without rash or lesion. Neurologic examination is brief but nonfocal. - Labs CBC & Chem 7: 11/03/23 07:08 11/03/23 07:08 Labs: Abnormal Lab Results - Last 24 Hours (Table) 11/03/23 11/03/23 11/04/23 Range/Units 16:44 20:10 06:11 POC Glucose (mg/dL) 167 H 170 H 151 H (70-110) mg/dL 11/04/23 Range/Units 11:21 POC Glucose (mg/dL) 178 H (70-110) mg/dL Microbiology - Last 24 Hours (Table) 10/31/23 16:25 Gram Stain - Final Sputum Sputum Culture - Final Assessment and Plan Assessment: Acute on chronic hypoxemic respiratory failure, likely secondary to an exacerbation of systolic congestive heart failure. Chronic obstructive pulmonary disease, stable. Chronic hypoxemic respiratory failure, secondary to above. Acute on chronic kidney disease. History of severe cardiomyopathy, with a baseline ejection fraction 20-25%, status post AICD implantation. History of nonsustained ventricular tachycardia. Chronic atrial fibrillation, stable. History of hypertension. History of hyperlipidemia. Obesity, with a BMI of 31.1 kg/m. Remote history of tobacco use. Plan: Plan dated 11/02/2023. The patient continues on all appropriate medications. He continues on bronchodilators, corticosteroids, etc. Labs x-rays, and medications are reviewed. The patient's overall prognosis remains guarded. He does have s ignificant lower extremity edema, and some chronic venous stasis changes to the lower 70s. Labs, x-rays, and medications are reviewed. We will continue to follow along with this patient, and make recommendations were appropriate. The patient continues on oxygen at 3 L. Plan dated 11/03/2023. The patient's doing better. Is currently on 3 L with saturations of 98%. He denies any significant respiratory distress or difficulty. His vital signs, are stable. Labs, x-rays, and medications are reviewed. The patient continues on Flomax, Aldactone, metoprolol, Zaroxolyn, Lasix, and Eliquis. We will continue to follow the patient, make recommendations along the way. Prognosis is guarded. Plan dated 11/04/2023. The patient continues to improve. His breathing is much improved. He still has significant edema lower extremities, with some chronic venous stasis changes. Labs, x-rays, and medications are reviewed. His blood pressure is 112/62 with a mean of 78. History liters saturation is 98%. Labs, are reviewed. Heart rate 78. Temperature is normal. The patient states that his breathing is much improved, and he denies any cough, wheezing, chest tightness, or phlegm production. He also denies any chest pain or pressure. Time with Patient: Less than 30
--- NOTE | 2023-11-04 12:43 | US ---
EXAMINATION TYPE: US kidneys/renal and bladder DATE OF EXAM: 11/04/2023 COMPARISON: NONE CLINICAL INDICATION: Male, 78 years old with history of jac; JAC EXAM MEASUREMENTS: Right Kidney: cm Left Kidney: cm Post Void Residual Volume: mL Right Kidney: No hydronephrosis or masses seen Left Kidney: 3.0x3.1x2.6cm anechoic area noted inferior lateral pole compatible with a simple renal c yst Bladder: wnl, poorly distended Bilateral Jets seen: Yes IVC measures up to 3.0cm Spleen measures up to 16cm Ascites noted superior to bladder IMPRESSION: 1. Ascites. 2. Splenomegaly. 3. Left renal nipple cyst
[2023-11-04 13:14] LABS: Anisocytosis Slight; Basophils # (A) 0.1 k/uL (0-0.2); Basophils % (A) 1 %; Eosinophils % (A) 0 %; HCT 33.1 % (39.0-53.0); HGB 10.2 gm/dL (13.0-17.5); Hypochromasia Marked; Lymphocytes # (A) 0.3 k/uL (1.0-4.8); Lymphocytes % (A) 4 %; MCHC 30.7 g/dL (31.0-37.0); MCV 97.5 fL (80.0-100.0); Macrocytosis Slight; Mean Platelet Volume 9.6; Monocytes # (A) 0.3 k/uL (0-1.0); Monocytes % (A) 4 %; Neutrophils # (A) 6.6 k/uL (1.3-7.7); Neutrophils % (A) 91 %; Platelet Count 140 k/uL (150-450); RBC 3.39 m/uL (4.30-5.90); RDW 16.3 % (11.5-15.5); WBC 7.3 k/uL (3.8-10.6)
--- NOTE | 2023-11-04 13:25 | P.PN ---
Subjective Progress Note Date: 11/04/23 Principal diagnosis: Reason for follow-up is pneumonia Patient is a 78-year-old male with a past medical history significant for hypertension hyperlipidemia osteoarthritis reflux COPD presenting to the hospital for evaluation of weakness, also complaining of cough and hemoptysis chest x-ray with cardiomegaly interstitial infiltrate and right middle lower lobe infiltrate concerning for possible pneumonia. On today's evaluation that is 11/04/2023 patient continues to be afebrile, the patient is breathing comfortably on 3 L nasal cannula oxygen, patient denies chest pain, the patient occasional cough but not bring up any sputum no nausea vomiting no abdominal pain no diarrhea Patient did have white count of 7.3, creatinine is 2.26 as of yesterday, CRP was 4.8, Pro-Kenan 0.10 blood and sputum cultures so far negative Objective - Vital Signs Vital signs: Vital Signs Temp 97.4 F L 11/04/23 08:00 Pulse 78 11/04/23 11:32 Resp 18 11/04/23 08:00 BP 112/62 11/04/23 08:00 Pulse Ox 98 11/04/23 08:00 FiO2 Intake & Output 11/03/23 11/04/23 11/04/23 18:59 06:59 18:59 Intake Total 358 Output Total 800 Balance 358 -800 Weight 108.2 kg Intake: Oral 358 Output: Urine 800 Other: Voiding Method Toilet Toilet Toilet Urinal Urinal Urinal - Exam GENERAL DESCRIPTION: An elderly male up in the chair in no distress RESPIRATORY SYSTEM: Unlabored breathing , decreased breath sounds at bases HEART: S1 S2 regular rate and rhythm , ABDOMEN: Soft , no tenderness EXTREMITIES: No edema feet - Labs CBC & Chem 7: 11/04/23 11:08 11/03/23 07:08 Labs: Abnormal Lab Results - Last 24 Hours (Table) 11/03/23 11/03/23 11/04/23 Range/Units 16:44 20:10 06:11 RBC (4.30-5.90) m/uL Hgb (13.0-17.5) gm/dL Hct (39.0-53.0) % MCHC (31.0-37.0) g/dL RDW (11.5-15.5) % Plt Count (150-450) k/uL Lymphocytes # (1.0-4.8) k/uL POC Glucose (mg/dL) 167 H 170 H 151 H (70-110) mg/dL 11/04/23 11/04/23 Range/Units 11:08 11:21 RBC 3.39 L (4.30-5.90) m/uL Hgb 10.2 L (13.0-17.5) gm/dL Hct 33.1 L (39.0-53.0) % MCHC 30.7 L (31.0-37.0) g/dL RDW 16.3 H (11.5-15.5) % Plt Count 140 L (150-450) k/uL Lymphocytes # 0.3 L (1.0-4.8) k/uL POC Glucose (mg/dL) 178 H (70-110) mg/dL Microbiology - Last 24 Hours (Table) 10/31/23 16:25 Gram Stain - Final Sputum Sputum Culture - Final Assessment and Plan (1) Pneumonia Current Visit: Yes Status: Acute Code(s): J18.9 - PNEUMONIA, UNSPECIFIED ORG ANISM SNOMED Code(s): 082036215 Plan: 1patient presented to hospital with increasing shortness of breath weakness he also have cough and hemoptysis patient did have a history of COPD with evidence of pulmonary infiltrate concerning for possible component of pneumonia likely community-acquired versus fluid overload state 2-patient did have CRP of 4.8 and a procalcitonin of 0.10 3-blood and sputum culture has been obtained and so far negative 4-patient has shown some clinical improvement, completed his antibiotic course and culture were negative, patient will be monitored closely off antibiotic therapy at this point Dictation was produced using [employer] dictation software. please excuse any grammatical, word or spelling errors. Time with Patient: Less than 30
[2023-11-04 13:40] LABS: African American GFR (CKD) 32 (>60 ml/min/1.73 sqM); Anion Gap 19 mmol/L; Calcium 8.9 mg/dL (8.4-10.2); Carbon Dioxide 17 mmol/L (22-30); Chloride 100 mmol/L (98-107); Glucose 143 mg/dL (74-99); Non-African American GFR(CKD) 28 (>60 ml/min/1.73 sqM); Potassium 4.5 mmol/L (3.5-5.1); Sodium 136 mmol/L (137-145)
[2023-11-04 13:53] LABS: Blood Urea Nitrogen 109 mg/dL (9-20)
[2023-11-04 16:19] LABS: Glucose,Whole Blood 188 mg/dL (70-110)
[2023-11-04 19:20] LABS: Appearance,Urine Clear (Clear); Bilirubin,Urine Negative (Negative); Blood,Urine Negative (Negative); Color,Urine Yellow; Glucose,Urine (UA) Negative (Negative); Ketones,Urine Negative (Negative); Leukocyte Esterase,Urine Negative (Negative); Nitrite,Urine Negative (Negative); Protein,Urine Negative (Negative); Specific Gravity,Urine 1.015 (1.001-1.035); Urobilinogen,Urine <2.0 mg/dL (<2.0)
[2023-11-04 20:10] LABS: Glucose,Whole Blood 135 mg/dL (70-110)
[2023-11-04] MEDS: ATORVASTATIN 10 MG TAB PO SCH (21:23)
[2023-11-04] MEDS: METOPROLOL SUCCINATE (ER) 25 MG TAB.ER.24H PO SCH (21:24)
[2023-11-04] MEDS: TAMSULOSIN 0.4 MG CAP.ER.24H PO SCH (21:24)
--- NOTE | 2023-11-04 21:47 | PN ---
PROGRESS NOTE DATE OF SERVICE: 11/04/2023 SUBJECTIVE: This is a 78-year-old gentleman, who was admitted with COPD and CHF, also had worsening renal failure. The creatinine has gone up to 2.26. Today's creatinine is not available. No chest pain. No palpitation. PHYSICAL EXAMINATION: VITAL SIGNS: Pulse is 98, blood pressure , and respirations 18. CHEST: Few scattered rhonchi. ABDOMEN: Soft. NERVOUS SYSTEM: Nonfocal. LABORATORY DATA: Hemoglobin 10.2. Creatinine is ASSESSMENT: 1. Shortness of breath, possibly pneumonia, chronic obstructive pulmonary disease acute exacerbation, congestive heart failure acute exacerbation, possible bilateral interstitial pneumonia, possibly viral pneumonia versus gram-negative versus COVID- 19 pneumonia. 2. Acute renal failure. 3. Elevated D-dimer. 4. Elevated procalcitonin. 5. Thrombocytopenia. 6. Hypertension. 7. Hyperlipidemia. 8. History of cardiomyopathy. 9. Full code. RECOMMENDATIONS: Recommended to continue current symptomatic treatment. Otherwise, we will review the creatinine. Continue the current medications. Avoid nephrotoxic medications. Monitor lytes closely. Guarded prognosis. Further recommendations to follow. MMODL / IJN: [id number] / ANSHU
[2023-11-05 06:35] LABS: Glucose,Whole Blood 116 mg/dL (70-110)
[2023-11-05] MEDS: INSULIN ASPART (NovoLOG) 100 UNIT/ML VIAL SQ SCH ×4 (06:41→21:20)
[2023-11-05] MEDS: PANTOPRAZOLE 40 MG TABLET PO SCH (06:42)
--- NOTE | 2023-11-05 08:36 | P.PN ---
Subjective Progress Note Date: 11/05/23 Principal diagnosis: CHF The patient was seen and evaluated this morning. He continues to be short of breath with apparently the shortness of breath has improved. Lasix continues to be on hold at this point. His kidney function was worse yesterday. The repeated blood work to assess the kidney function still pending as of this morning. He is only on Aldactone at this point. He is on 3 L oxygen. He still have mild bilateral lower extremity edema. Examination is remarkable for irregular rhythm with diminished breathing sounds bilaterally and mild bilateral lower extremity edema Assessment Heart failure exacerbation related to heart failure with reduced ejection fra ction Severe nonischemic cardiomyopathy Status post AICD Atrial fibrillation Valvular heart disease Multiple comorbid conditions Plan Continue holding the Lasix as the nephrology service advice Repeat the blood work including BMP was still waiting for the results Monitor the patient for additional 24 hours Objective - Vital Signs Vital signs: Vital Signs Temp 98 F 11/05/23 04:00 Pulse 64 11/05/23 04:00 Resp 18 11/05/23 04:00 BP 98/62 11/05/23 04:00 Pulse Ox 97 11/05/23 04:00 FiO2 Intake & Output 11/04/23 11/05/23 11/05/23 18:59 06:59 18:59 Intake Total 240 240 Output Total 200 700 Balance 40 -460 Weight 107.6 kg Intake: Oral 240 240 Output: Urine 200 700 Other: Voiding Method Toilet Toilet Urinal Urinal - Labs CBC & Chem 7: 11/04/23 11:08 11/04/23 11:08 Labs: Abnormal Lab Results - Last 24 Hours (Table) 11/04/23 11/04/23 11/04/23 Range/Units 11:08 11:08 11:21 RBC 3.39 L (4.30-5.90) m/uL Hgb 10.2 L (13.0-17.5) gm/dL Hct 33.1 L (39.0-53.0) % MCHC 30.7 L (31.0-37.0) g/dL RDW 16.3 H (11.5-15.5) % Plt Count 140 L (150-450) k/uL Lymphocytes # 0.3 L (1.0-4.8) k/uL Sodium 136 L (137-145) mmol/L Carbon Dioxide 17 L (22-30) mmol/L BUN 109 H* (9-20) mg/dL Creatinine 2.23 H (0.66-1.25) mg/dL Glucose 143 H (74-99) mg/dL POC Glucose (mg/dL) 178 H (70-110) mg/dL 11/04/23 11/04/23 11/05/23 Range/Units 16:17 20:08 06:33 RBC (4.30-5.90) m/uL Hgb (13.0-17.5) gm/dL Hct (39.0-53.0) % MCHC (31.0-37.0) g/dL RDW (11.5-15.5) % Plt Count (150-450) k/uL Lymphocytes # (1.0-4.8) k/uL Sodium (137-145) mmol/L Carbon Dioxide (22-30) mmol/L BUN (9-20) mg/dL Creatinine (0.66-1.25) mg/dL Glucose (74-99) mg/dL POC Glucose (mg/dL) 188 H 135 H 116 H (70-110) mg/dL Microbiology - Last 24 Hours (Table) 10/30/23 14:26 Blood Culture - Final Blood
[2023-11-05 09:18] LABS: Anisocytosis Slight; Basophils % (A) 0 %; Eosinophils % (A) 0 %; HGB 10.1 gm/dL (13.0-17.5); Hypochromasia Marked; Lymphocytes # (A) 0.4 k/uL (1.0-4.8); Lymphocytes % (A) 5 %; MCH 29.4 pg (25.0-35.0); MCHC 30.6 g/dL (31.0-37.0); MCV 96.1 fL (80.0-100.0); Mean Platelet Volume 9.2; Monocytes # (A) 0.3 k/uL (0-1.0); Monocytes % (A) 4 %; Neutrophils # (A) 7.1 k/uL (1.3-7.7); Neutrophils % (A) 90 %; Platelet Count 132 k/uL (150-450); RBC 3.43 m/uL (4.30-5.90); RDW 16.1 % (11.5-15.5); WBC 7.9 k/uL (3.8-10.6)
[2023-11-05 09:30] LABS: African American GFR (CKD) 30 (>60 ml/min/1.73 sqM); Anion Gap 15 mmol/L; Calcium 8.7 mg/dL (8.4-10.2); Carbon Dioxide 23 mmol/L (22-30); Chloride 100 mmol/L (98-107); Glucose 90 mg/dL (74-99); Non-African American GFR(CKD) 26 (>60 ml/min/1.73 sqM); Potassium 4.1 mmol/L (3.5-5.1); Sodium 138 mmol/L (137-145)
[2023-11-05 09:32] LABS: Blood Urea Nitrogen 120 mg/dL (9-20)
[2023-11-05] MEDS: APIXABAN 2.5 MG TABLET PO SCH ×2 (09:35→20:03)
[2023-11-05] MEDS: FERROUS SULFATE 325 MG TAB PO SCH (09:35)
[2023-11-05] MEDS: SACUBITRIL/VALSARTAN 49 MG-51 MG TABLET PO SCH ×2 (09:35→20:03)
[2023-11-05] MEDS: allopurinoL 300 MG TAB PO SCH (09:35)
[2023-11-05] MEDS: SPIRONOLACTONE 25 MG TAB PO SCH (09:36)
[2023-11-05] MEDS: IPRATROPIUM-ALBUTEROL 3 ML NEB INHALATION SCH ×4 (09:41→21:29)
[2023-11-05] MEDS: MIDODRINE 5 MG TAB PO SCH ×3 (10:00→18:27)
--- NOTE | 2023-11-05 10:14 | XR ---
EXAMINATION TYPE: XR chest 1V portable DATE OF EXAM: 11/05/2023 COMPARISON: 11/02/2023 INDICATION: Previous abnormal TECHNIQUE: Single frontal view of the chest is obtained. FINDINGS: The heart size is prominent. The pulmonary vasculature is upper limits for normal, diminished from comparison. There is been improvement of the scattered infiltrates. Findings are likely resolving edema. Continue d follow-up is recommended. IMPRESSION: 1. Resolving pulmonary edema and congestive heart failure. Continued follow-up recommended
--- NOTE | 2023-11-05 11:00 | P.PN ---
Subjective Patient is seen for follow-up for acute kidney injury associated with hypotension, NSAIDs and CHF/cardiorenal syndrome. EF 20-25%. 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 Status post diuresis on initial admission, currently Lasix on hold. Creatinine remains elevated at about 2.3 with significant increase in BUN. Patient is not maintained on steroids. No obvious GI bleed. Lasix has been on hold. Urine output about 900 mL for 24 hours. Patient continues to have significant edema of the lower extremities. Objective - Vital Signs Vital signs: Vital Signs Temp 98 F 11/05/23 04:00 Pulse 72 11/05/23 09:52 Resp 18 11/05/23 04:00 BP 98/62 11/05/23 04:00 Pulse Ox 99 11/05/23 09:44 FiO2 Intake & Output 11/04/23 11/05/23 11/05/23 18:59 06:59 18:59 Intake Total 240 240 358 Output Total 200 700 Balance 40 -460 358 Weight 107.6 kg Intake: Oral 240 240 358 Output: Urine 200 700 Other: Voiding Method Toilet Toilet Urinal Urinal - Exam Patient is awake, comfortable, no acute distress Examination of the heart S1 and S2 Examination of the lungs bilateral breath sounds are heard with decreased breath sounds at the bases Abdomen is soft nontender Examination of lower extremities shows 2+ edema bilaterally 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 intact - Labs CBC & Chem 7: 11/05/23 08:06 11/05/23 08:06 Labs: Abnormal Lab Results - Last 24 Hours (Table) 11/04/23 11/04/23 11/04/23 Range/Units 11:08 11:08 11:21 RBC 3.39 L (4.30-5.90) m/uL Hgb 10.2 L (13.0-17.5) gm/dL Hct 33.1 L (39.0-53.0) % MCHC 30.7 L (31.0-37.0) g/dL RDW 16.3 H (11.5-15.5) % Plt Count 140 L (150-450) k/uL Lymphocytes # 0.3 L (1.0-4.8) k/uL Sodium 136 L (137-145) mmol/L Carbon Dioxide 17 L (22-30) mmol/L BUN 109 H* (9-20) mg/dL Creatinine 2.23 H (0.66-1.25) mg/dL Glucose 143 H (74-99) mg/dL POC Glucose (mg/dL) 178 H (70-110) mg/dL 11/04/23 11/04/23 11/05/23 Range/Units 16:17 20:08 06:33 RBC (4.30-5.90) m/uL Hgb (13.0-17.5) gm/dL Hct (39.0-53.0) % MCHC (31.0-37.0) g/dL RDW (11.5-15.5) % Plt Count (150-450) k/uL Lymphocytes # (1.0-4.8) k/uL Sodium (137-145) mmol/L Carbon Dioxide (22-30) mmol/L BUN (9-20) mg/dL Creatinine (0.66-1.25) mg/dL Glucose (74-99) mg/dL POC Glucose (mg/dL) 188 H 135 H 116 H (70-110) mg/dL 11/05/23 11/05/23 Range/Units 08:06 08:06 RBC 3.43 L (4.30-5.90) m/uL Hgb 10.1 L (13.0-17.5) gm/dL Hct 33.0 L (39.0-53.0) % MCHC 30.6 L (31.0-37.0) g/dL RDW 16.1 H (11.5-15.5) % Plt Count 132 L (150-450) k/uL Lymphocytes # 0.4 L (1.0-4.8) k/uL Sodium (137-145) mmol/L Carbon Dioxide (22-30) mmol/L BUN 120 H* (9-20) mg/dL Creatinine 2.33 H (0.66-1.25) mg/dL Glucose (74-99) mg/dL POC Glucose (mg/dL) (70-110) mg/dL Microbiology - Last 24 Hours (Table) 10/30/23 14:26 Blood Culture - Final Blood Assessment and Plan Assessment: 1. Acute kidney injury, ATN and secondary to hypotension and NSAIDs in the s etting of CHF and cardiorenal syndrome. No urine retention. Lasix is currently on hold. Volume status has improved since admission but patient remains with significant edema in the lower extremities. Discussed with cardiology we will add dobutamine. Ultrasound shows no evidence of obstructive uropathy. UA is completely benign 2. Volume overload, improved since admission but remains significantly volume overloaded 3. CHF acute on chronic mostly systolic 4. Cardiomyopathy with EF of 20-25%. 5. Paroxysmal A. fib 6. Chronic kidney disease NKF stage IIIa secondary to nephrosclerosis with baseline creatinine around 1.5-1.6 mg/dL Plan: Continue off of NSAIDs Add dobutamine Hold Zaroxolyn Repeat labs in a.m. Accurate I's and O's Check chest x-ray Add midodrine as blood pressure remains low
--- NOTE | 2023-11-05 11:38 | PN ---
PROGRESS NOTE DATE OF SERVICE: 11/05/2023 SUBJECTIVE: This 78-year-old gentleman was admitted with COPD and CHF acute exacerbation, also had worsening renal failure. Creatinine is 2.33 today, was 2.23 yesterday. No chest pain, no palpitation. OBJECTIVE: VITAL SIGNS: Pulse is 67, blood pressure n, respirations 20. CHEST: Few scattered rhonchi and crackles. ABDOMEN: Soft. NERVOUS SYSTEM: Nonfocal. LABORATORY DATA: Hemoglobin 10.1. The chest x-ray is done today, which was reviewed personally by me, showed some CHF. ASSESSMENT: 1. Shortness of breath, possibly COPD acute exacerbation, CHF acute exacerbation, possible bilateral interstitial pneumonia, possibly viral pneumonia versus gram- negative versus COVID-19 pneumonia. 2. Acute renal failure. 3. Elevated D-dimer. 4. Elevated procalcitonin. 5. Thrombocytopenia. 6. Hypertension. 7. Hyperlipidemia. 8. History of cardiomyopathy. 9. Full code. RECOMMENDATIONS: Recommended to continue current management, continue symptomatic treatment. Cardiology, Nephrology following the patient closely. We will avoid diuretics at this time. Avoid nephrotoxic medications, otherwise continue to monitor repeat labs. Further recommendations to follow. Cardiology, Nephrology input appreciated. MMODL / IJN: [id number] / ANSHU
[2023-11-05 11:53] LABS: Glucose,Whole Blood 107 mg/dL (70-110)
[2023-11-05] MEDS: DOBUTamine DRIP 500 MG in DEXTROSE/WATER 1 250ML.BAG IV SCH (12:14)
--- NOTE | 2023-11-05 13:59 | P.PN ---
Subjective Progress Note Date: 11/05/23 Principal diagnosis: Shortness of breath. I am seeing this patient in consultation today 11/01/2023 after presented with progressively worsening exertional shortness of breath. Patient is a 78-year-old male with past medical history significant for severe cardiomyopathy with a baseline ejection fraction of 20-25%, nonsustained VT, AICD implantation, atrial fibrillation, hypertension, hyperlipidemia, and COPD. His PCP is Dr. Anderson. Patient presented to emergency room October 30 complaining mostly of severe exertional dyspnea. He can ambulate about 5-10 feet and then becomes severely short of breath. He also admits increased lower extremity swelling and abdominal firmness. He has history of heart failure. He takes Demadex routinely twice a day at home. He has been sleeping in his recliner because he gets short of breath when lying flat. He denies any chest pain, palpitations, syncope. He denies any fevers, cough. He does admit small amounts of hemoptysis. Patient states that he wears 2 L nasal cannula 15/05 at home. He states that his nose has been very dry, he admits to occasional epistaxis. Patient does have history of COPD as well, he normally takes a combination of Trelegy inhaler and albuterol when necessary. Patient is currently sitting up in bed, on 3 L/m nasal cannula, in no acute distress, Chest x-ray demonstrates cardiomegaly with diffuse interstitial and patchy opacities, especially mid and lower lungs. This is felt to reflect congestive heart failure, and the patient has been diuresing with Lasix 40 mg 3 times a day. Patient is also empirically covered with a combination of azithromycin and Rocephin. He's been afebrile. No leukocytosis on CBC. Procalcitonin level mildly elevated at 0.1. Negative for influenza, RSV, COVID-19. CBC from admission: WBC count 6.5, hemoglobin 10.6, hematocrit 33.4, platelets 117. D-dimer was elevated at 1.6. Clinical suspicion for PE is low. Patient was already anticoagulated on Eliquis on arrival. BMP from admission: Sodium 138, potassium 4.4, chloride 96, serum bicarb 24, BUN 76, creatinine 1.56, glucose 107. Troponin 0.033. NT proBNP significantly elevated at 20,700. Vital signs are stable. Progress note dated 11/02/2023. The patient is seen today in room 356. The patient was admitted with a diagnosis of CHF. Remains on oxygen by nasal cannula 3 L. He's not receiving any IV fluids. His breathing is much improved. His lower extremity edema is also much improved. Currently laboratory data includes a white count 5.5, he will benign 0.5, hematocrit 30.2, and platelet count 118,000. Sodium 137, potassium 4.3, chlorides 99, CO2 23, BUN 85, and creatinine 1.76. Glucose 142. Calcium 9.1. Albumin 3.8. Chest x-ray from today shows bilateral pulmonary congestion/CHF. Progress note dated 11/03/2023. 78-year-old male seen today in room 356. He was admitted with a diagnosis of CHF. Currently, the patient sitting up in a chair, next to his hospital bed. H e is in no distress. He is taking oxygen at 3 L. He's not receiving any IV fluids. Labs today include a white count 6.1, he will benign 0.7, hematocrit 32.2, and a platelet count of 127,000. Sodium 138, potassium 4.3, chlorides 97, CO2 23, anion gap 18, BUN 98, creatinine 2.26. Glucose 154. Calcium is 9.1. Chest x-ray from yesterday shows a pattern of CHF. Progress note dated 11/04/2023. 78-year-old male, seen today in room 356. The patient was admitted with a diagnosis of CHF. The patient generally doing better. He continues on 3 L of oxygen, by nasal cannula. He's not receiving any IV fluids. He is sitting in a chair, next to his hospital bed. His legs or up. The patient continues with lower extremity edema, and chronic venous stasis changes. Current laboratory includes a glucose of 151. Progress note dated 11/05/2023. 78-year-old male seen in room 356. The patient was admitted with a diagnosis of heart failure. Clinically, the patient's doing better. He continues on oxygen, 3 L. He's not receiving any IV fluids. He still has lower extremity edema. White count of 7.9, he will come 0.1, hematocrit 33, and a platelet count of 132,000. Sodium 138, potassium 4.1, chlorides 100, CO2 23, BUN is 120, creatinine is 2.33. Glucose 90. Calcium is 8.7. Chest x-ray, from today, shows improving heart failure. Objective - Vital Signs Vital signs: Vital Signs Temp 97.6 F 11/05/23 08:00 Pulse 78 11/05/23 12:50 Resp 20 11/05/23 08:00 BP 102/57 11/05/23 08:00 Pulse Ox 99 11/05/23 09:44 FiO2 Intake & Output 11/04/23 11/05/23 11/05/23 18:59 06:59 18:59 Intake Total 240 240 358 Output Total 200 700 Balance 40 -460 358 Weight 107.6 kg Intake: Oral 240 240 358 Output: Urine 200 700 Other: Voiding Method Toilet Toilet Urinal Urinal - Exam No acute distress, oriented 3. Currently on 3 L of oxygen. No use of accessory muscles, or conversational dyspnea, or audible wheezes. HEENT examination is grossly unremarkable. Mucous membranes are moist. No oral lesions. Neck supple. Full range of motion. No adenopathy thyromegaly or neck vein distention. Cardiovascular examination reveals regular rhythm rate. S1-S2 normal. No S3 or S4. No discernible murmur noted. Heart sounds are distant. Heart rate 78 bpm. Lungs reveal bilateral and mostly basilar crackles. No wheezes or rhonchi. Breath sounds equal bilaterally. Saturations are 99 % on 3 L. Abdomen soft bowel sounds are heard. No masses or tenderness. Extremities are intact. No cyanosis or clubbing. There is 1+ to 2+ pitting edema. Chronic venous changes are also noted. Skin is without rash or lesion. Neurologic examination is brief but nonfocal. - Labs CBC & Chem 7: 11/05/23 08:06 11/05/23 08:06 Labs: Abnormal Lab Results - Last 24 Hours (Table) 11/04/23 11/04/23 11/05/23 Range/Units 16:17 20:08 06:33 RBC (4.30-5.90) m/uL Hgb (13.0-17.5) gm/dL Hct (39.0-53.0) % MCHC (31.0-37.0) g/dL RDW (11.5-15.5) % Plt Count (150-450) k/uL Lymphocytes # (1.0-4.8) k/uL BUN (9-20) mg/dL Creatinine (0.66-1.25) mg/dL POC Glucose (mg/dL) 188 H 135 H 116 H (70-110) mg/dL 11/05/23 11/05/23 Range/Units 08:06 08:06 RBC 3.43 L (4.30-5.90) m/uL Hgb 10.1 L (13.0-17.5) gm/dL Hct 33.0 L (39.0-53.0) % MCHC 30.6 L (31.0-37.0) g/dL RDW 16.1 H (11.5-15.5) % Plt Count 132 L (150-450) k/uL Lymphocytes # 0.4 L (1.0-4.8) k/uL BUN 120 H* (9-20) mg/dL Creatinine 2.33 H (0.66-1.25) mg/dL POC Glucose (mg/dL) (70-110) mg/dL Microbiology - Last 24 Hours (Table) 10/30/23 14:26 Blood Culture - Final Blood Assessment and Plan Assessment: Acute on chronic hypoxemic respiratory failure, likely secondary to an exacerbation of systolic congestive heart failure. Chronic obstructive pulmonary disease, stable. Chronic hypoxemic respiratory failure, secondary to above. Acute on chronic kidney disease. History of severe cardiomyopathy, with a baseline ejection fraction 20-25%, status post AICD implantation. History of nonsustained ventricular tachycardia. Chronic atrial fibrillation, stable. History of hypertension. History of hyperlipidemia. Obesity, with a BMI of 31.1 kg/m. Remote history of tobacco use. Plan: Plan dated 11/02/2023. The patient continues on all appropriate medications. He continues on bronchodilators, corticosteroids, etc. Labs x-rays, and medications are reviewed. The patient's overall prognosis remains guarded. He does have significant lower extremity edema, and some chronic venous stasis changes to the lower 70s. Labs, x-rays, and medications are reviewed. We will continue to follow along with this patient, and make recommendations were appropriate. The patient continues on oxygen at 3 L. Plan dated 11/03/2023. The patient's doing better. Is currently on 3 L with saturations of 98%. He denies any significant respiratory distress or difficulty. His vital signs, are stable. Labs, x-rays, and medications are reviewed. The patient continues on Flomax, Aldactone, metoprolol, Zaroxolyn, Lasix, and Eliquis. We will continue to follow the patient, make recommendations along the way. Prognosis is guar ded. Plan dated 11/04/2023. The patient continues to improve. His breathing is much improved. He still has significant edema lower extremities, with some chronic venous stasis changes. Labs, x-rays, and medications are reviewed. His blood pressure is 112/62 with a mean of 78. History liters saturation is 98%. Labs, are reviewed. Heart rate 78. Temperature is normal. The patient states that his breathing is much improved, and he denies any cough, wheezing, chest tightness, or phlegm pr oduction. He also denies any chest pain or pressure. Plan dated 11/05/2023. The patient does continue to improve. Clinically he is better, and radiographically, he is much better. The patient still has some lower extremity edema. Labs, x-rays, and medications are reviewed. We'll continue to follow the patient, until discharge. No additional recommendations are made. Prognosis is guarded. All of his data is reviewed. The patient denies any chest symptoms, and also denies any shortness of breath, cough, wheezing, or phlegm production. Time with Patient: Less than 30
--- NOTE | 2023-11-05 16:21 | P.PN ---
Subjective Progress Note Date: 11/05/23 Principal diagnosis: Reason for follow-up is pneumonia Patient is a 78-year-old male with a past medical history significant for hypertension hyperlipidemia osteoarthritis reflux COPD presenting to the hospital for evaluation of weakness, also complaining of cough and hemoptysis chest x-ray with cardiomegaly interstitial infiltrate and right middle lower lobe infiltrate concerning for possible pneumonia. On today's evaluation that is 11/05/2023, the patient remains to be afebrile, the patient is breathing comfortably on 3 L nasal cannula oxygen and the patient de nies any shortness of breath, the patient denies chest pain cough has decreased intensity no further hemoptysis, patient denies any nausea/vomiting abdominal pain or diarrhea, complaining of mostly dry irritation in the nose Patient did have white count of 7.9, creatinine is 2.33, CRP was 4.8, Pro-Kenan 0.10 blood and sputum cultures so far negative Objective - Vital Signs Vital signs: Vital Signs Temp 97.6 F 11/05/23 08:00 Pulse 78 11/05/23 12:50 Resp 20 11/05/23 12:00 BP 94/54 11/05/23 13:40 Pulse Ox 95 11/05/23 12:00 FiO2 Intake & Output 11/04/23 11/05/23 11/05/23 18:59 06:59 18:59 Intake Total 240 240 478 Output Total 200 700 350 Balance 40 -460 128 Weight 107.6 kg Intake: Oral 240 240 478 Output: Urine 200 700 350 Other: Voiding Method Toilet Toilet Urinal Urinal - Exam GENERAL DESCRIPTION: An elderly male up in the chair in no distress RESPIRATORY SYSTEM: Unlabored breathing , decreased breath sounds at bases HEART: S1 S2 regular rate and rhythm , ABDOMEN: Soft , no tenderness EXTREMITIES: No edema feet - Labs CBC & Chem 7: 11/05/23 08:06 11/05/23 08:06 Labs: Abnormal Lab Results - Last 24 Hours (Table) 11/04/23 11/05/23 11/05/23 Range/Units 20:08 06:33 08:06 RBC 3.43 L (4.30-5.90) m/uL Hgb 10.1 L (13.0-17.5) gm/dL Hct 33.0 L (39.0-53.0) % MCHC 30.6 L (31.0-37.0) g/dL RDW 16.1 H (11.5-15.5) % Plt Count 132 L (150-450) k/uL Lymphocytes # 0.4 L (1.0-4.8) k/uL BUN (9-20) mg/dL Creatinine (0.66-1.25) mg/dL POC Glucose (mg/dL) 135 H 116 H (70-110) mg/dL 11/05/23 Range/Units 08:06 RBC (4.30-5.90) m/uL Hgb (13.0-17.5) gm/dL Hct (39.0-53.0) % MCHC (31.0-37.0) g/dL RDW (11.5-15.5) % Plt Count (150-450) k/uL Lymphocytes # (1.0-4.8) k/uL BUN 120 H* (9-20) mg/dL Creatinine 2.33 H (0.66-1.25) mg/dL POC Glucose (mg/dL) (70-110) mg/dL Microbiology - Last 24 Hours (Table) 10/30/23 14:26 Blood Culture - Final Blood Assessment and Plan (1) Pneumonia Current Visit: Yes Status: Acute Code(s): J18.9 - PNEUMONIA, UNSPECIFIED ORGANISM SNOMED Code(s): 970409051 Plan: 1patient presented to hospital with increasing shortness of breath weakness he also have cough and hemoptysis patient did have a history of COPD with evidence of pulmonary infiltrate concerning for possible component of pneumonia likely community-acquired versus fluid overload state 2-patient did have CRP of 4.8 and a procalcitonin of 0.10 3-blood and sputum culture has been obtained and so far negative 4-patient has shown some clinical improvement, patient has completed his antibiotic course and culture remains to be negative, patient will be monitored closely off antibiotic therapy, nursing staff advised to change O2 to humidified that will help decrease irritation to the nose Dictation was produced using [employer] dictation software. please excuse any grammatical, word or spelling errors. Time with Patient: Less than 30
[2023-11-05 16:50] LABS: Glucose,Whole Blood 139 mg/dL (70-110)
[2023-11-05] MEDS: TAMSULOSIN 0.4 MG CAP.ER.24H PO SCH (20:03)
[2023-11-05] MEDS: ATORVASTATIN 10 MG TAB PO SCH (20:03)
[2023-11-05] MEDS: METOPROLOL SUCCINATE (ER) 25 MG TAB.ER.24H PO SCH (20:03)
[2023-11-05 20:28] LABS: Glucose,Whole Blood 128 mg/dL (70-110)
[2023-11-06 06:09] LABS: Glucose,Whole Blood 105 mg/dL (70-110)
[2023-11-06] MEDS: INSULIN ASPART (NovoLOG) 100 UNIT/ML VIAL SQ SCH ×4 (06:10→20:00)
[2023-11-06] MEDS: MIDODRINE 5 MG TAB PO SCH (06:15)
[2023-11-06] MEDS: PANTOPRAZOLE 40 MG TABLET PO SCH (06:15)
[2023-11-06 07:17] LABS: Anisocytosis Slight; Basophils % (A) 0 %; Eosinophils % (A) 0 %; HCT 33.7 % (39.0-53.0); HGB 10.5 gm/dL (13.0-17.5); Hypochromasia Marked; Lymphocytes # (A) 0.5 k/uL (1.0-4.8); Lymphocytes % (A) 8 %; MCH 29.8 pg (25.0-35.0); MCHC 31.1 g/dL (31.0-37.0); MCV 95.9 fL (80.0-100.0); Monocytes # (A) 0.3 k/uL (0-1.0); Monocytes % (A) 5 %; Neutrophils # (A) 5.3 k/uL (1.3-7.7); Neutrophils % (A) 85 %; Platelet Count 129 k/uL (150-450); RBC 3.52 m/uL (4.30-5.90); RDW 16.1 % (11.5-15.5); WBC 6.2 k/uL (3.8-10.6)
[2023-11-06] MEDS: APIXABAN 2.5 MG TABLET PO SCH ×2 (07:45→20:00)
[2023-11-06] MEDS: SPIRONOLACTONE 25 MG TAB PO SCH (07:45)
[2023-11-06] MEDS: SACUBITRIL/VALSARTAN 49 MG-51 MG TABLET PO SCH (07:45)
[2023-11-06] MEDS: allopurinoL 300 MG TAB PO SCH (07:45)
[2023-11-06] MEDS: FERROUS SULFATE 325 MG TAB PO SCH (07:45)
[2023-11-06 08:28] LABS: African American GFR (CKD) 36 (>60 ml/min/1.73 sqM); Anion Gap 13 mmol/L; Calcium 8.3 mg/dL (8.4-10.2); Carbon Dioxide 21 mmol/L (22-30); Chloride 105 mmol/L (98-107); Glucose 100 mg/dL (74-99); Non-African American GFR(CKD) 31 (>60 ml/min/1.73 sqM); Potassium 3.9 mmol/L (3.5-5.1); Sodium 139 mmol/L (137-145)
[2023-11-06 08:46] LABS: Blood Urea Nitrogen 113 mg/dL (9-20)
[2023-11-06] MEDS: IPRATROPIUM-ALBUTEROL 3 ML NEB INHALATION SCH ×4 (09:27→21:07)
--- NOTE | 2023-11-06 10:33 | P.PN ---
Subjective Progress Note Date: 11/06/23 On 11/06/2023, I am seeing this patient for a follow-up. The patient was hospitalized for worsening shortness of breath. Is a 78-year-old male patient with history of severe cardiomyopathy with an ejection fraction of 20 to 25%, nonsustained VT, and he has an AICD in place. He has chronic A-fib, COPD, hypertension hyperlipidemia. He was having exertional dyspnea. He was also having lower extremity edema and abdominal fullness. He typically wears oxygen 2 L/min nasal cannula 24 7. He underwent blood work including a viral screen that came back negative. He is known to have chronic kidney disease. His proBNP was elevated above 20,000 at time of admission. The patient was treated accordingly. The patient continues to be on oxygen at 2 L/min nasal cannula. He developed some acute on top of chronic kidney disease injury. Nevertheless, he continues to make urine output. The patient's most recent creatinine from yesterday was at 2.3 with a BUN of 120. Rest of the electrolytes are within normal limits. The patient is being seen by nephrology and cardiology. Remains on anticoagulation with Eliquis 2.5 mg twice a day. Remains on diuretics and the patient is currently on Aldactone 25 mg p.o. daily and Zaroxolyn was also being given an extra needs basis. He remains on dobutamine to augment the cardiac output at 2.5 mcg/kg/min. He is also on Entresto. Patient is still producing adequate amount of urine output. He admits that his lower extremity edema is improving. No new complaints otherwise for now. Is on oxygen at 2 L.On today's blood work, the patient's BUN is at 150 with a creatinine of 2.01 which is improved compared to yesterday. Sodium is at 139. Potassium levels at 3.9. The lungs noted at 6.2 with a hemoglobin of 10.5. Fluid balance over the past 24 hours has been negative. Objective - Vital Signs Vital signs: Vital Signs Temp 97.5 F L 11/06/23 08:00 Pulse 84 11/06/23 08:00 Resp 20 11/06/23 08:00 BP 108/58 11/06/23 08:00 Pulse Ox 94 L 11/06/23 09:28 FiO2 Intake & Output 11/05/23 11/06/23 11/06/23 18:59 06:59 18:59 Intake Total 718 240 Output Total 350 800 450 Balance 368 -800 -210 Weight 108.5 kg Intake: Oral 718 240 Output: Urine 350 800 450 Other: Voiding Method Toilet Toilet Urinal Urinal - Exam No acute distress, oriented 3. Currently on 2 L of oxygen. No use of accessory muscles, or conversational dyspnea, or audible wheezes. HEENT examination is grossly unremarkable. Mucous membranes are moist. No oral lesions. Neck supple. Full range of motion. No adenopathy thyromegaly or neck vein distention. Cardiovascular examination reveals regular rhythm rate. S1-S2 normal. No S3 or S4. No discernible murmur noted. Heart sounds are distant. Lungs reveal bilateral and mostly basilar crackles. No wheezes or rhonchi. Breath sounds equal bilaterally. Abdomen soft bowel sounds are heard. No masses or tenderness. Extremities are intact. No cyanosis or clubbing. There is 1+ to 2+ pitting edema. Chronic venous changes are also noted. Skin is without rash or lesion. Neurologic examination is brief but nonfocal. - Labs CBC & Chem 7: 11/06/23 06:44 11/06/23 06:44 Labs: Abnormal Lab Results - Last 24 Hours (Table) 11/05/23 11/05/23 11/06/23 Range/Units 16:49 20:27 06:44 RBC 3.52 L (4.30-5.90) m/uL Hgb 10.5 L (13.0-17.5) gm/dL Hct 33.7 L (39.0-53.0) % RDW 16.1 H (11.5-15.5) % Plt Count 129 L (150-450) k/uL Lymphocytes # 0.5 L (1.0-4.8) k/uL Carbon Dioxide (22-30) mmol/L BUN (9-20) mg/dL Creatinine (0.66-1.25) mg/dL Glucose (74-99) mg/dL POC Glucose (mg/dL) 139 H 128 H (70-110) mg/dL Calcium (8.4-10.2) mg/dL 11/06/23 Range/Units 06:44 RBC (4.30-5.90) m/uL Hgb (13.0-17.5) gm/dL Hct (39.0-53.0) % RDW (11.5-15.5) % Plt Count (150-450) k/uL Lymphocytes # (1.0-4.8) k/uL Carbon Dioxide 21 L (22-30) mmol/L BUN 113 H* (9-20) mg/dL Creatinine 2.01 H (0.66-1.25) mg/dL Glucose 100 H (74-99) mg/dL POC Glucose (mg/dL) (70-110) mg/dL Calcium 8.3 L (8.4-10.2) mg/dL Assessment and Plan Plan: Assessment Acute on chronic shortness of breath secondary to decompensated heart failure. Chest x-ray from 11/05/2023 shows resolving pulmonary edema/CHF Severe cardiomyopathy with an ejection fraction of 20 to 25%, currently on dobutamine to augment the cardiac output of 2.5 mcg/kg/min, and the patient is also on Entresto and Aldactone. Acute on chronic hypoxic respiratory failure currently on 3 L of oxygen by nasal cannula Acute on chronic kidney injury, renal function is being monitored History of nonsustained VT and the patient has an AICD in place Chronic A-fib, currently on anticoagulation with Eliquis Hypertension Hyperlipidemia Obesity with a BMI of 31 Fluid overload with lower extremity and abdominal wall edema History of AICD placement Plan The patient continues to improve Patient is on dobutamine at 2.5 mcg/kg/m Patient is on Zaroxolyn 2.5 mg every 3 days when necessary in addition to Aldactone 25 mg by mouth daily Patient is on Entresto Patient is on metoprolol 12.5 mg at bedtime XL Patient is on long-term anticoagulation with Eliquis
[2023-11-06] MEDS: DOBUTamine DRIP 500 MG in DEXTROSE/WATER 1 250ML.BAG IV SCH (11:15)
[2023-11-06 11:46] LABS: Glucose,Whole Blood 128 mg/dL (70-110)
[2023-11-06] MEDS ORDERED: FUROSEMIDE 10 MG/ML 4 ML VIAL IV STA (12:37)
--- NOTE | 2023-11-06 12:38 | P.PN ---
Subjective Patient is seen in follow-up for acute kidney injury on chronic kidney disease. Renal function better. Having lunch. No vomiting or diarrhea. Denies chest pain or shortness of breath. On nasal cannula. Vital signs are stable. General: No acute distress. HEENT: Head exam is unremarkable. On his cannula. LUNGS: Notable rhonchi or wheezes. HEART: Rate and Rhythm are regular. ABDOMEN: Nontender. EXTREMITITES: Lower extremities wrapped. 1+ edema. Objective - Vital Signs Vital signs: Vital Signs Temp 97.5 F L 11/06/23 08:00 Pulse 64 11/06/23 11:42 Resp 18 11/06/23 11:42 BP 100/58 11/06/23 11:42 Pulse Ox 99 11/06/23 11:42 FiO2 Intake & Output 11/05/23 11/06/23 11/06/23 18:59 06:59 18:59 Intake Total 718 425.745 Output Total 350 800 450 Balance 368 -800 -24.255 Weight 108.5 kg Intake: Intake, IV Titration 185.745 Amount DOBUTamine DRIP 500 mg In 185.745 Dextrose/Water 1 250ml. bag @ 2.5 MCG/KG/MIN 8.07 mls/hr IV .Q24H [facility] Rx#: [id number] Oral 718 240 Output: Urine 350 800 450 Other: Voiding Method Toilet Toilet Urinal Urinal - Labs CBC & Chem 7: 11/06/23 06:44 11/06/23 06:44 Labs: Abnormal Lab Results - Last 24 Hours (Table) 11/05/23 11/05/23 11/06/23 Range/Units 16:49 20:27 06:44 RBC 3.52 L (4.30-5.90) m/uL Hgb 10.5 L (13.0-17.5) gm/dL Hct 33.7 L (39.0-53.0) % RDW 16.1 H (11.5-15.5) % Plt Count 129 L (150-450) k/uL Lymphocytes # 0.5 L (1.0-4.8) k/uL Carbon Dioxide (22-30) mmol/L BUN (9-20) mg/dL Creatinine (0.66-1.25) mg/dL Glucose (74-99) mg/dL POC Glucose (mg/dL) 139 H 128 H (70-110) mg/dL Calcium (8.4-10.2) mg/dL 11/06/23 11/06/23 Range/Units 06:44 11:44 RBC (4.30-5.90) m/uL Hgb (13.0-17.5) gm/dL Hct (39.0-53.0) % RDW (11.5-15.5) % Plt Count (150-450) k/uL Lymphocytes # (1.0-4.8) k/uL Carbon Dioxide 21 L (22-30) mmol/L BUN 113 H* (9-20) mg/dL Creatinine 2.01 H (0.66-1.25) mg/dL Glucose 100 H (74-99) mg/dL POC Glucose (mg/dL) 128 H (70-110) mg/dL Calcium 8.3 L (8.4-10.2) mg/dL Assessment and Plan Plan: Assessment: 1. Acute kidney injury secondary to ATN secondary to cardiorenal syndrome. Creatinine peaked at 2.33 this admission and is 2.01 today. 2. Acute on chronic systolic CHF with ejection fraction of 30-35% with mild to moderate tricuspid and mitral regurgitation with moderate pulmonary hypertension. 3. Chronic kidney disease stage IIIa/b with baseline creatinine 1.5-1.6 secondary to nephrosclerosis and cardiorenal syndrome. UA benign. 4. Volume overload. Plan: Maintain dobutamine. Lasix 40 mg IV once today. Low-salt diet and 1500 mL fluid restriction. Repeat labs in the morning.
[2023-11-06 13:26] LABS: INR 1.4 (<1.2); Prothrombin Time 14.3 sec (10.0-12.5)
--- NOTE | 2023-11-06 14:03 | P.PN ---
Subjective Progress Note Date: 11/06/23 CHF The patient was seen and evaluated this morning. He continues to be short of breath with apparently the shortness of breath has improved. Lasix continues to be on hold at this point. His kidney function was worse yesterday. The repeated blood work to assess the kidney function still pending as of this morning. He is only on Aldactone at this point. He is on 3 L oxygen. He still have mild bilateral lower extremity edema. 11/06 Patient's states that he has had good urine output. Telemetry is atrial fibrillation. He remains on dobutamine drip per nephrology. He has had improvement of his renal function Blood pressure is improved 100/58, pulse ox 99% on 3 L, heart rate in the 60s to 80s. BUN 113, creatinine 2.01. INR 1.4. Hemoglobin is 10.5. Examination is remarkable for irregular rhythm with diminished breathing sounds bilaterally and mild bilateral lower extremity edema Assessment Heart failure exacerbation related to heart failure with reduced ejection fraction Severe nonischemic cardiomyopathy Status post AICD Atrial fibrillation Valvular heart disease Multiple comorbid conditions Plan IV Lasix per nephrology service Dobutamine drip per nephrology. Decrease midodrine to 5 mg 3 times daily for systolic blood pressure less than 110. Start patient on Entresto 24 mg26 mg one twice daily Continue metoprolol excess and 812.5 mg at bedtime. Nurse practitioner note has been reviewed, I agree with the documented findings and plan of care. Patient was seen and examined. Objective - Vital Signs Vital signs: Vital Signs Temp 97.5 F L 11/06/23 08:00 Pulse 84 11/06/23 08:00 Resp 20 11/06/23 08:00 BP 108/58 11/06/23 08:00 Pulse Ox 94 L 11/06/23 09:28 FiO2 Intake & Output 11/05/23 11/06/23 11/06/23 18:59 06:59 18:59 Intake Total 718 240 Output Total 350 800 450 Balance 368 -800 -210 Weight 108.5 kg Intake: Oral 718 240 Output: Urine 350 800 450 Other: Voiding Method Toilet Toilet Urinal Urinal - Labs CBC & Chem 7: 11/06/23 06:44 11/06/23 06:44 Labs: Abnormal Lab Results - Last 24 Hours (Table) 11/05/23 11/05/2311/06/24 Range/Units 16:49 20:27 06:44 RBC 3.52 L (4.30-5.90) m/uL Hgb 10.5 L (13.0-17.5) gm/dL Hct 33.7 L (39.0-53.0) % RDW 16.1 H (11.5-15.5) % Plt Count 129 L (150-450) k/uL Lymphocytes # 0.5 L (1.0-4.8) k/uL Carbon Dioxide (22-30) mmol/L BUN (9-20) mg/dL Creatinine (0.66-1.25) mg/dL Glucose (74-99) mg/dL POC Glucose (mg/dL) 139 H 128 H (70-110) mg/dL Calcium (8.4-10.2) mg/dL 11/06/23 Range/Units 06:44 RBC (4.30-5.90) m/uL Hgb (13.0-17.5) gm/dL Hct (39.0-53.0) % RDW (11.5-15.5) % Plt Count (150-450) k/uL Lymphocytes # (1.0-4.8) k/uL Carbon Dioxide 21 L (22-30) mmol/L BUN 113 H* (9-20) mg/dL Creatinine 2.01 H (0.66-1.25) mg/dL Glucose 100 H (74-99) mg/dL POC Glucose (mg/dL) (70-110) mg/dL Calcium 8.3 L (8.4-10.2) mg/dL
[2023-11-06] MEDS: MIDODRINE 5 MG TAB PO PRN (15:35)
[2023-11-06 16:06] LABS: Glucose,Whole Blood 104 mg/dL (70-110)
[2023-11-06 19:52] LABS: Glucose,Whole Blood 130 mg/dL (70-110)
[2023-11-06] MEDS: TAMSULOSIN 0.4 MG CAP.ER.24H PO SCH (20:00)
[2023-11-06] MEDS: ATORVASTATIN 10 MG TAB PO SCH (20:00)
[2023-11-06] MEDS: METOPROLOL SUCCINATE (ER) 25 MG TAB.ER.24H PO SCH (20:01)
[2023-11-06] MEDS: SACUBITRIL/VALSARTAN 24 MG-26 MG TABLET PO SCH (21:24)
--- NOTE | 2023-11-07 00:41 | PN ---
PROGRESS NOTE DATE OF SERVICE: 11/06/2023 SUBJECTIVE: This is a 78-year-old gentleman, who was admitted with COPD and CHF acute exacerbation, also had renal failure. The patient is started on dobutamine drip at this time. Most recent chest x-ray done yesterday, which was reviewed personally by me showed significant fluid overload. A 2D echo, which was done a couple of days ago showed ejection fraction 30% to 35% with severe right ventricular dilatation also. PAST MEDICAL HISTORY: Reviewed. REVIEW OF SYSTEMS: A 14-point review is negative except as mentioned earlier. CURRENT MEDICATIONS: Dobutamine. Rest of medications noted. PHYSICAL EXAMINATION: VITAL SIGNS: Pulse 64, blood pressure 100/58, and respirations 18. HEENT: Conjunctivae normal. NECK: No jugular venous distention. CARDIOVASCULAR: S1, S2 muffled. RESPIRATIONS: Breath sounds diminished at the bases. A few scattered rhonchi. ABDOMEN: Soft. LEGS: Bilateral leg edema. NERVOUS SYSTEM: Nonfocal. LABORATORY DATA: Creatinine 2.01. The rest of the labs are noted. ASSESSMENT: 1. Shortness of breath, possible chronic obstructive pulmonary disease acute exacerbation, congestive heart failure acute exacerbation with acute on chronic systolic dysfunction, ejection fraction 35%. 2. Possible bilateral interstitial pneumonia, possibly viral pneumonia versus gram- negative versus COVID-19 pneumonia. 3. Acute renal failure. 4. Elevated D-dimer. 5. Elevated procalcitonin. 6. Thrombocytopenia. 7. Hypertension. 8. Hyperlipidemia. 9. History of cardiomyopathy. 10.Full code. RECOMMENDATIONS: Recommend to continue current management and continue symptomatic treatment. The patient has multiple complex medical issues as listed above. Continue the dobutamine. I would recommend to monitor the creatinine closely. The BUN is 113. Monitor fluid electrolyte balance closely. Recommend portable chest x-ray. Symptomatic treatment. DVT prophylaxis. Guarded prognosis. Further recommendations to follow. MMODL / IJN: [id number] /
[2023-11-07 06:04] LABS: Glucose,Whole Blood 114 mg/dL (70-110)
[2023-11-07] MEDS: INSULIN ASPART (NovoLOG) 100 UNIT/ML VIAL SQ SCH ×4 (06:05→21:25)
[2023-11-07] MEDS: PANTOPRAZOLE 40 MG TABLET PO SCH (06:20)
[2023-11-07] MEDS: SACUBITRIL/VALSARTAN 24 MG-26 MG TABLET PO SCH ×2 (07:37→20:23)
[2023-11-07] MEDS: APIXABAN 2.5 MG TABLET PO SCH ×2 (07:37→20:23)
[2023-11-07] MEDS: FERROUS SULFATE 325 MG TAB PO SCH (07:37)
[2023-11-07] MEDS: allopurinoL 300 MG TAB PO SCH (07:37)
[2023-11-07] MEDS: IPRATROPIUM-ALBUTEROL 3 ML NEB INHALATION SCH ×4 (07:43→22:44)
--- NOTE | 2023-11-07 08:34 | XR ---
EXAMINATION TYPE: XR chest 1V portable DATE OF EXAM: 11/07/2023 COMPARISON: 11/05/2023 HISTORY: Shortness of breath TECHNIQUE: Single frontal view of the chest is obtained. FINDINGS: Cardiac device is stable and there is a coarsened interstitium with a limited inspiration and cardiomegaly. Biapical pleural thickening but no pneumothorax. Atherosclerotic change of aorta an d arthropathy of the shoulders. IMPRESSION: 1. Stable interstitial pneumonitis or mild venous congestion superimposed on a background chronic sesar g disease.
[2023-11-07 09:24] LABS: Anisocytosis Slight; Basophils % (A) 0 %; Eosinophils # (A) 0.1 k/uL (0-0.7); Eosinophils % (A) 1 %; HCT 36.5 % (39.0-53.0); HGB 10.9 gm/dL (13.0-17.5); Hypochromasia Marked; Lymphocytes # (A) 0.6 k/uL (1.0-4.8); Lymphocytes % (A) 10 %; MCH 28.9 pg (25.0-35.0); MCHC 29.9 g/dL (31.0-37.0); MCV 96.5 fL (80.0-100.0); Monocytes # (A) 0.3 k/uL (0-1.0); Monocytes % (A) 5 %; Neutrophils # (A) 5.1 k/uL (1.3-7.7); Neutrophils % (A) 82 %; Platelet Count 126 k/uL (150-450); RBC 3.78 m/uL (4.30-5.90); RDW 16.2 % (11.5-15.5); WBC 6.2 k/uL (3.8-10.6)
[2023-11-07 09:47] LABS: African American GFR (CKD) 45 (>60 ml/min/1.73 sqM); Anion Gap 10 mmol/L; Blood Urea Nitrogen 98 mg/dL (9-20); Calcium 8.5 mg/dL (8.4-10.2); Carbon Dioxide 25 mmol/L (22-30); Chloride 107 mmol/L (98-107); Glucose 95 mg/dL (74-99); Magnesium 2.5 mg/dL (1.6-2.3); Non-African American GFR(CKD) 39 (>60 ml/min/1.73 sqM); Potassium 3.8 mmol/L (3.5-5.1); Sodium 142 mmol/L (137-145)
--- NOTE | 2023-11-07 09:53 | P.PN ---
Subjective Progress Note Date: 11/07/23 On 11/06/2023, I am seeing this patient for a follow-up. The patient was hospitalized for worsening shortness of breath. Is a 78-year-old male patient with history of severe cardiomyopathy with an ejection fraction of 20 to 25%, nonsustained VT, and he has an AICD in place. He has chronic A-fib, COPD, hypertension hyperlipidemia. He was having exertional dyspnea. He was also having lower extremity edema and abdominal fullness. He typically wears oxygen 2 L/min nasal cannula 24 7. He underwent blood work including a viral screen that came back negative. He is known to have chronic kidney disease. His proBNP was elevated above 20,000 at time of admission. The patient was treated accordingly. The patient continues to be on oxygen at 2 L/min nasal cannula. He developed some acute on top of chronic kidney disease injury. Nevertheless, he continues to make urine output. The patient's most recent creatinine from yesterday was at 2.3 with a BUN of 120. Rest of the electrolytes are within normal limits. The patient is being seen by nephrology and cardiology. Remains on anticoagulation with Eliquis 2.5 mg twice a day. Remains on diuretics and the patient is currently on Aldactone 25 mg p.o. daily and Zaroxolyn was also being given an extra needs basis. He remains on dobutamine to augment the cardiac output at 2.5 mcg/kg/min. He is also on Entresto. Patient is still producing adequate amount of urine output. He admits that his lower extremity edema is improving. No new complaints otherwise for now. Is on oxygen at 2 L.On today's blood work, the patient's BUN is at 150 with a creatinine of 2.01 which is improved compared to yesterday. Sodium is at 139. Potassium levels at 3.9. The lungs noted at 6.2 with a hemoglobin of 10.5. Fluid balance over the past 24 hours has been negative. On 11/07/2023, the patient is feeling much better. Is producing adequate amount of urine output and is hemodynamically stable. He remains on dobutamine at 2.5 mg/kg/m. He is obviously mobilizing excess fluid. His BUN is down to 98 and the creatinine is down to 1.69 and the patient continues to have improvement in renal function. Sodium level is at 142, potassium levels at 3.8 and a serum bicarb is 25. The white cell count is at 6.2 with a hemoglobin of 10.9. The devi tello remains on 2 L of oxygen by nasal cannula. No other complaints. Is able to sit up on a chair and is calm and comfortable. He is also on anticoagulation with Eliquis 2.5 mg twice a day. Remains on Entresto Objective - Vital Signs Vital signs: Vital Signs Temp 97.8 F 11/07/23 08:00 Pulse 79 11/07/23 08:00 Resp 18 11/07/23 08:00 BP 111/69 11/07/23 08:00 Pulse Ox 97 11/07/23 08:00 FiO2 Intake & Output 11/06/23 11/07/23 11/07/23 18:59 06:59 18:59 Intake Total 905.745 0 240 Output Total 1525 1500 Balance -619.255 -1500 240 Weight 108 kg Intake: Intake, IV Titration 185.745 Amount DOBUTamine DRIP 500 mg In 185.745 Dextrose/Water 1 250ml. bag @ 2.5 MCG/KG/MIN 8.07 mls/hr IV .Q24H [facility] Rx#: [id number] Oral 720 0 240 Output: Urine 1525 1500 Other: Voiding Method Toilet Urinal Urinal Urinal # Voids 1 # Bowel Movements 1 - Exam No acute distress, oriented 3. Currently on 2 L of oxygen. No use of accessory muscles, or conversational dyspnea, or audible wheezes. HEENT examination is grossly unremarkable. Mucous membranes are moist. No oral lesions. Neck supple. Full range of motion. No adenopathy thyromegaly or neck vein distention. Cardiovascular examination reveals regular rhythm rate. S1-S2 normal. No S3 or S4. No discernible murmur noted. Heart sounds are distant. Lungs reveal bilateral and mostly basilar crackles. No wheezes or rhonchi. Breath sounds equal bilaterally. Abdomen soft bowel sounds are heard. No masses or tenderness. Extremities are intact. No cyanosis or clubbing. There is 1+ to 2+ pitting edema. Chronic venous changes are also noted. Skin is without rash or lesion. Neurologic examination is brief but nonfocal. - Labs CBC & Chem 7: 11/07/23 07:56 11/07/23 07:56 Labs: Abnormal Lab Results - Last 24 Hours (Table) 11/06/23 11/06/23 11/06/23 Range/Units 11:44 12:48 19:50 RBC (4.30-5.90) m/uL Hgb (13.0-17.5) gm/dL Hct (39.0-53.0) % MCHC (31.0-37.0) g/dL RDW (11.5-15.5) % Plt Count (150-450) k/uL Lymphocytes # (1.0-4.8) k/uL PT 14.3 H (10.0-12.5) sec INR 1.4 H (<1.2) BUN (9-20) mg/dL Creatinine (0.66-1.25) mg/dL POC Glucose (mg/dL) 128 H 130 H (70-110) mg/dL Magnesium (1.6-2.3) mg/dL 11/07/23 11/07/23 11/07/23 Range/Units 06:01 07:56 07:56 RBC 3.78 L (4.30-5.90) m/uL Hgb 10.9 L (13.0-17.5) gm/dL Hct 36.5 L (39.0-53.0) % MCHC 29.9 L (31.0-37.0) g/dL RDW 16.2 H (11.5-15.5) % Plt Count 126 L (150-450) k/uL Lymphocytes # 0.6 L (1.0-4.8) k/uL PT (10.0-12.5) sec INR (<1.2) BUN 98 H (9-20) mg/dL Creatinine 1.69 H (0.66-1.25) mg/dL POC Glucose (mg/dL) 114 H (70-110) mg/dL Magnesium 2.5 H (1.6-2.3) mg/dL Assessment and Plan Plan: Assessment Acute on chronic shortness of breath secondary to decompensated heart failure. Chest x-ray from 11/05/2023 shows resolving pulmonary edema/CHF, clinically improving and the patient remains on dobutamine, currently on 2 L of oxygen by nasal cannula. Severe cardiomyopathy with an ejection fraction of 20 to 25%, currently on dobutamine to augment the cardiac output of 2.5 mcg/kg/min, and the patient is also on Entresto and Aldactone. Acute on chronic hypoxic respiratory failure currently on 3 L of oxygen by nasal cannula Acute on chronic kidney injury, renal function is being monitored, renal function continues to improve History of nonsustained VT and the patient has an AICD in place Chronic A-fib, currently on anticoagulation with Eliquis Hypertension Hyperlipidemia Obesity with a BMI of 31 Fluid overload with lower extremity and abdominal wall edema History of AICD placement Plan The patient continues to improve clinically and the renal function is also improving. Patient is on dobutamine at 2.5 mcg/kg/m Patient is on Zaroxolyn 2.5 mg every 3 days when necessary in addition to Aldactone 25 mg by mouth daily Patient is on Entresto Patient is on metoprolol 12.5 mg at bedtime XL Patient is on long-term anticoagulation with Eliquis
[2023-11-07] MEDS: DOBUTamine DRIP 500 MG in DEXTROSE/WATER 1 250ML.BAG IV SCH (11:07)
[2023-11-07] MEDS: MIDODRINE 5 MG TAB PO PRN (11:15)
[2023-11-07 11:28] LABS: Glucose,Whole Blood 114 mg/dL (70-110)
--- NOTE | 2023-11-07 11:30 | P.PN ---
Subjective Patient is seen in follow-up for acute kidney injury on chronic kidney disease. Renal function better. No vomiting or diarrhea. Denies chest pain or shortness of breath. On nasal cannula. Vital signs are stable. General: No acute distress. HEENT: Head exam is unremarkable. On nasal cannula. LUNGS: Notable rhonchi or wheezes. HEART: Rate and Rhythm are regular. ABDOMEN: Nontender. EXTREMITITES: Lower extremities wrapped. 1+ edema. Objective - Vital Signs Vital signs: Vital Signs Temp 97.8 F 11/07/23 08:00 Pulse 65 11/07/23 11:21 Resp 18 11/07/23 11:21 BP 96/47 11/07/23 11:21 Pulse Ox 98 11/07/23 11:21 FiO2 Intake & Output 11/06/23 11/07/23 11/07/23 18:59 06:59 18:59 Intake Total 905.745 0 432.604 Output Total 1525 1500 Balance -619.255 -1500 432.604 Weight 108 kg Intake: Intake, IV Titration 185.745 192.604 Amount DOBUTamine DRIP 500 mg In 185.745 192.604 Dextrose/Water 1 250ml. bag @ 2.5 MCG/KG/MIN 8.07 mls/hr IV .Q24H [facility] Rx#: [id number] Oral 720 0 240 Output: Urine 1525 1500 Other: Voiding Method Toilet Urinal Urinal Urinal # Voids 1 # Bowel Movements 1 - Labs CBC & Chem 7: 11/07/23 07:56 11/07/23 07:56 Labs: Abnormal Lab Results - Last 24 Hours (Table) 11/06/23 11/06/23 11/06/23 Range/Units 11:44 12:48 19:50 RBC (4.30-5.90) m/uL Hgb (13.0-17.5) gm/dL Hct (39.0-53.0) % MCHC (31.0-37.0) g/dL RDW (11.5-15.5) % Plt Count (150-450) k/uL Lymphocytes # (1.0-4.8) k/uL PT 14.3 H (10.0-12.5) sec INR 1.4 H (<1.2) BUN (9-20) mg/dL Creatinine (0.66-1.25) mg/dL POC Glucose (mg/dL) 128 H 130 H (70-110) mg/dL Magnesium (1.6-2.3) mg/dL 11/07/23 11/07/23 11/07/23 Range/Units 06:01 07:56 07:56 RBC 3.78 L (4.30-5.90) m/uL Hgb 10.9 L (13.0-17.5) gm/dL Hct 36.5 L (39.0-53.0) % MCHC 29.9 L (31.0-37.0) g/dL RDW 16.2 H (11.5-15.5) % Plt Count 126 L (150-450) k/uL Lymphocytes # 0.6 L (1.0-4.8) k/uL PT (10.0-12.5) sec INR (<1.2) BUN 98 H (9-20) mg/dL Creatinine 1.69 H (0.66-1.25) mg/dL POC Glucose (mg/dL) 114 H (70-110) mg/dL Magnesium 2.5 H (1.6-2.3) mg/dL Assessment and Plan Plan: Assessment: 1. Acute kidney injury secondary to ATN secondary to cardiorenal syndrome. Creatinine peaked at 2.33 this admission and is 1.69 today. 2. Acute on chronic systolic CHF with ejection fraction of 30-35% with mild to moderate tricuspid and mitral regurgitation with moderate pulmonary hypertension. 3. Chronic kidney disease stage IIIa/b with baseline creatinine 1.5-1.6 secondary to nephrosclerosis and cardiorenal syndrome. UA benign. 4. Volume overload. Improving with diuresis. Plan: Dobutamine per cardiology. Plan to stop tomorrow. Discussed with cardiology. Add IV Lasix 40 mg once daily. Low-salt diet and 1500 mL fluid restriction. Repeat labs in the morning.
[2023-11-07] MEDS: FUROSEMIDE 10 MG/ML 4 ML VIAL IV SCH (11:38)
--- NOTE | 2023-11-07 14:44 | P.PN ---
Subjective Progress Note Date: 11/07/23 CHF The patient was seen and evaluated this morning. He continues to be short of breath with apparently the shortness of breath has improved. Lasix continues to be on hold at this point. His kidney function was worse yesterday. The repeated blood work to assess the kidney function still pending as of this morning. He is only on Aldactone at this point. He is on 3 L oxygen. He still have mild bilateral lower extremity edema. 11/06 Patient's states that he has had good urine output. Telemetry is atrial fibrillation. He remains on dobutamine drip per nephrology. He has had improvement of his renal function Blood pressure is improved 100/58, pulse ox 99% on 3 L, heart rate in the 60s to 80s. BUN 113, creatinine 2.01. INR 1.4. Hemoglobin is 10.5. 11/07 Patient states that he is feeling better today. He remains on dobutamine drip and IV Lasix per nephrology. Blood pressure 111/69, heart rate 79, pulse ox 97% on 3 L nasal cannula. Repeat blood work reveals improvement of renal function with BUN 98 creatinine 1.69. Hemoglobin is 10.9, platelet counts 126. Magnesium 2.5, potassium 3.8 Echocardiogram reveals EF of 30%. Examination is remarkable for irregular rhythm with diminished breathing sounds bilaterally and mild bilateral lower extremity edema Assessment Heart failure exacerbation related to heart failure with reduced ejection fraction Severe nonischemic cardiomyopathy Status post AICD Atrial fibrillation Valvular heart disease Multiple comorbid conditions Plan IV Lasix per nephrology service Dobutamine drip per nephrology. Decrease midodrine to 5 mg 3 times daily for systolic blood pressure less than 110. Continue patient on Entresto 24 mg26 mg one twice daily Continue metoprolol succinate 12.5 mg at bedtime No medication changes made today. Nurse practitioner note has been reviewed, I agree with the documented findings and plan of care. Patient was seen and examined. Objective - Vital Signs Vital signs: Vital Signs Temp 97.8 F 11/07/23 08:00 Pulse 79 11/07/23 08:00 Resp 18 11/07/23 08:00 BP 111/69 11/07/23 08:00 Pulse Ox 97 11/07/23 08:00 FiO2 Intake & Output 11/06/23 11/07/23 11/07/23 18:59 06:59 18:59 Intake Total 905.745 0 240 Output Total 1525 1500 Balance -619.255 -1500 240 Weight 108 kg Intake: Intake, IV Titration 185.745 Amount DOBUTamine DRIP 500 mg In 185.745 Dextrose/Water 1 250ml. bag @ 2.5 MCG/KG/MIN 8.07 mls/hr IV .Q24H [facility] Rx#: [id number] Oral 720 0 240 Output: Urine 1525 1500 Other: Voiding Method Toilet Urinal Urinal Urinal # Voids 1 # Bowel Movements 1 - Labs CBC & Chem 7: 11/07/23 07:56 11/07/23 07:56 Labs: Abnormal Lab Results - Last 24 Hours (Table) 11/06/23 11/06/23 11/06/23 Range/Units 11:44 12:48 19:50 RBC (4.30-5.90) m/uL Hgb (13.0-17.5) gm/dL Hct (39.0-53.0) % MCHC (31.0-37.0) g/dL RDW (11.5-15.5) % Plt Count (150-450) k/uL Lymphocytes # (1.0-4.8) k/uL PT 14.3 H (10.0-12.5) sec INR 1.4 H (<1.2) BUN (9-20) mg/dL Creatinine (0.66-1.25) mg/dL POC Glucose (mg/dL) 128 H 130 H (70-110) mg/dL Magnesium (1.6-2.3) mg/dL 11/07/23 11/07/23 11/07/23 Range/Units 06:01 07:56 07:56 RBC 3.78 L (4.30-5.90) m/uL Hgb 10.9 L (13.0-17.5) gm/dL Hct 36.5 L (39.0-53.0) % MCHC 29.9 L (31.0-37.0) g/dL RDW 16.2 H (11.5-15.5) % Plt Count 126 L (150-450) k/uL Lymphocytes # 0.6 L (1.0-4.8) k/uL PT (10.0-12.5) sec INR (<1.2) BUN 98 H (9-20) mg/dL Creatinine 1.69 H (0.66-1.25) mg/dL POC Glucose (mg/dL) 114 H (70-110) mg/dL Magnesium 2.5 H (1.6-2.3) mg/dL
--- NOTE | 2023-11-07 15:28 | P.PN ---
Subjective Progress Note Date: 11/06/23 Principal diagnosis: Reason for follow-up is pneumonia Patient is a 78-year-old male with a past medical history significant for hypertension hyperlipidemia osteoarthritis reflux COPD presenting to the hospital for evaluation of weakness, also complaining of cough and hemoptysis chest x-ray with cardiomegaly interstitial infiltrate and right middle lower lobe infiltrate concerning for possible pneumonia. On today's evaluation that is 11/06/2023, the patient continues to be afebrile patient is breathing comfortably on 3 L nasal cannula supplemental oxygen the patient denies chest pain did have occasional cough no sputum production patient denies abdominal pain no nausea no vomiting and no diarrhea has been reported Patient did have white count of 6.2 creatinine is 2.01 CRP was 4.8, Pro-Kenan 0.10 blood and sputum cultures so far negative Objective - Vital Signs Vital signs: Vital Signs Temp 97.5 F L 11/06/23 08:00 Pulse 64 11/06/23 11:42 Resp 18 11/06/23 11:42 BP 100/58 11/06/23 11:42 Pulse Ox 99 11/06/23 11:42 FiO2 Intake & Output 11/05/23 11/06/23 11/06/23 18:59 06:59 18:59 Intake Total 718 425.745 Output Total 350 800 750 Balance 368 -800 -324.255 Weight 108.5 kg Intake: Intake, IV Titration 185.745 Amount DOBUTamine DRIP 500 mg In 185.745 Dextrose/Water 1 250ml. bag @ 2.5 MCG/KG/MIN 8.07 mls/hr IV .Q24H [facility] Rx#: [id number] Oral 718 240 Output: Urine 350 800 750 Other: Voiding Method Toilet Toilet Urinal Urinal # Voids 1 - Exam GENERAL DESCRIPTION: An elderly male up in the chair in no distress RESPIRATORY SYSTEM: Unlabored breathing , decreased breath sounds at bases HEART: S1 S2 regular rate and rhythm , ABDOMEN: Soft , no tenderness EXTREMITIES: No edema feet - Labs CBC & Chem 7: 11/07/23 07:56 11/07/23 07:56 Labs: Abnormal Lab Results - Last 24 Hours (Table) 11/05/23 11/05/23 11/06/23 Range/Units 16:49 20:27 06:44 RBC 3.52 L (4.30-5.90) m/uL Hgb 10.5 L (13.0-17.5) gm/dL Hct 33.7 L (39.0-53.0) % RDW 16.1 H (11.5-15.5) % Plt Count 129 L (150-450) k/uL Lymphocytes # 0.5 L (1.0-4.8) k/uL Carbon Dioxide (22-30) mmol/L BUN (9-20) mg/dL Creatinine (0.66-1.25) mg/dL Glucose (74-99) mg/dL POC Glucose (mg/dL) 139 H 128 H (70-110) mg/dL Calcium (8.4-10.2) mg/dL 11/06/23 11/06/23 Range/Units 06:44 11:44 RBC (4.30-5.90) m/uL Hgb (13.0-17.5) gm/dL Hct (39.0-53.0) % RDW (11.5-15.5) % Plt Count (150-450) k/uL Lymphocytes # (1.0-4.8) k/uL Carbon Dioxide 21 L (22-30) mmol/L BUN 113 H* (9-20) mg/dL Creatinine 2.01 H (0.66-1.25) mg/dL Glucose 100 H (74-99) mg/dL POC Glucose (mg/dL) 128 H (70-110) mg/dL Calcium 8.3 L (8.4-10.2) mg/dL Assessment and Plan (1) Pneumonia Current Visit: Yes Status: Acute Code(s): J18.9 - PNEUMONIA, UNSPECIFIED O RGANISM SNOMED Code(s): 730292744 Plan: 1patient presented to hospital with increasing shortness of breath weakness he also have cough and hemoptysis patient did have a history of COPD with evidence of pulmonary infiltrate concerning for possible component of pneumonia likely community-acquired versus fluid overload state 2-patient did have CRP of 4.8 and a procalcitonin of 0.10 3-blood and sputum culture has been obtained and so far negative 4-patient features are mostly of CHF currently being treated by cardiology on dobutamine completed course of antibiotics for suspected pneumonia Dictation was produced using dragon dictation software. please excuse any grammatical, word or spelling errors. Time with Patient: Less than 30
--- NOTE | 2023-11-07 15:29 | P.PN ---
Subjective Progress Note Date: 11/07/23 Principal diagnosis: Reason for follow-up is pneumonia Patient is a 78-year-old male with a past medical history significant for hypertension hyperlipidemia osteoarthritis reflux COPD presenting to the hospital for evaluation of weakness, also complaining of cough and hemoptysis chest x-ray with cardiomegaly interstitial infiltrate and right middle lower lobe infiltrate concerning for possible pneumonia. On today's evaluation that is 11/07/2023, the patient remains to be afebrile, the patient is breathing comfortably on 3 L nasal cannula oxygen, the patient denie s any shortness of breath, the patient denies chest pain did have occasional dry cough no further hemoptysis, patient denies any nausea/vomiting abdominal pain or diarrhea Patient did have white count of 6.2 creatinine is 1.69 CRP was 4.8, Pro-Kenan 0.10 blood and sputum cultures so far negative Objective - Vital Signs Vital signs: Vital Signs Temp 97.8 F 11/07/23 08:00 Pulse 65 11/07/23 11:21 Resp 18 11/07/23 11:21 BP 96/47 11/07/23 11:21 Pulse Ox 98 11/07/23 11:21 FiO2 Intake & Output 11/06/23 11/07/23 11/07/23 18:59 06:59 18:59 Intake Total 905.745 0 790.604 Output Total 1525 1500 300 Balance -619.255 -1500 490.604 Weight 108 kg Intake: Intake, IV Titration 185.745 192.604 Amount DOBUTamine DRIP 500 mg In 185.745 192.604 Dextrose/Water 1 250ml. bag @ 2.5 MCG/KG/MIN 8.07 mls/hr IV .Q24H [facility] Rx#: [id number] Oral 720 0 598 Output: Urine 1525 1500 300 Other: Voiding Method Toilet Urinal Urinal Urinal # Voids 1 1 # Bowel Movements 1 - Exam GENERAL DESCRIPTION: An elderly male up in the chair in no distress RESPIRATORY SYSTEM: Unlabored breathing , decreased breath sounds at bases HEART: S1 S2 regular rate and rhythm , ABDOMEN: Soft , no tenderness EXTREMITIES: No edema feet - Labs CBC & Chem 7: 11/07/23 07:56 11/07/23 07:56 Labs: Abnormal Lab Results - Last 24 Hours (Table) 11/06/23 11/07/23 11/07/23 Range/Units 19:50 06:01 07:56 RBC (4.30-5.90) m/uL Hgb (13.0-17.5) gm/dL Hct (39.0-53.0) % MCHC (31.0-37.0) g/dL RDW (11.5-15.5) % Plt Count (150-450) k/uL Lymphocytes # (1.0-4.8) k/uL BUN 98 H (9-20) mg/dL Creatinine 1.69 H (0.66-1.25) mg/dL POC Glucose (mg/dL) 130 H 114 H (70-110) mg/dL Magnesium 2.5 H (1.6-2.3) mg/dL 11/07/23 11/07/23 Range/Units 07:56 11:27 RBC 3.78 L (4.30-5.90) m/uL Hgb 10.9 L (13.0-17.5) gm/dL Hct 36.5 L (39.0-53.0) % MCHC 29.9 L (31.0-37.0) g/dL RDW 16.2 H (11.5-15.5) % Plt Count 126 L (150-450) k/uL Lymphocytes # 0.6 L (1.0-4.8) k/uL BUN (9-20) mg/dL Creatinine (0.66-1.25) mg/dL POC Glucose (mg/dL) 114 H (70-110) mg/dL Magnesium (1.6-2.3) mg/dL Assessment and Plan (1) Pneumonia Current Visit: Yes Status: Acute Code(s): J18.9 - PNEUMONIA, UNSPECIFIED ORGANISM SNOMED Code(s): 384450202 Plan: 1patient presented to hospital with increasing shortness of breath weakness he also have cough and hemoptysis patient did have a history of COPD with evidence of pulmonary infiltrate concerning for possible component of pneumonia likely community-acquired versus fluid overload state 2-patient did have CRP of 4.8 and a procalcitonin of 0.10 3-blood and sputum culture has been obtained and so far negative 4-patient features are mostly of CHF currently being treated by cardiology on dobutamine completed course of antibiotics for suspected pneumonia, ID will sign off please call back if any question regarding his infectious disease care Dictation was produced using [employer] dictation software. please excuse any grammatical, word or spelling errors. Time with Patient: Less than 30
[2023-11-07 16:34] LABS: Glucose,Whole Blood 154 mg/dL (70-110)
--- NOTE | 2023-11-07 19:14 | P.PN ---
Subjective Progress Note Date: 11/07/23 Patient is a 78 year old male comes in with shortness of breath and lower extremity edema. He was found to have vascular congestion and was placed on IV lasix. Chest xray today reveals stable interstitial pneumonitis or mild venous congestion sumperimposed on a background chronic lung disease. Creatinine i mproved he is now taken off diuretics and has been maintained on dobutamine gtt. His EF is 30%. His entresto has been decreased. Creatinine today improved to 1.69. Lower extremity edema is significantly improved. Compression with PIPPA wraps in place. Patient does report feeling less short of breath. He remains on oxygen 2L nasal cannula does not wear oxygen at home. Review of Systems Constitutional: Denied any fatigue denied any fever. Cardio vascular: denied any chest pain, palpitations Gastrointestinal: denied any nausea, vomiting, diarrhea Pulmonary: Denied any shortness of breath cough Neurologic denied any new focal deficits All inpatient medications were reviewed and appropriate changes in these medications as dictated in the interval history and assessment and plan. PHYSICAL EXAMINATION: GENERAL: The patient is alert and oriented x3, not in any acute distress. Well developed, well nourished. On 2L oxygen HEENT: Pupils are round and equally reacting to light. EOMI. No scleral icterus. No conjunctival pallor. Normocephalic, atraumatic. No pharyngeal erythema. No thyromegaly. CARDIOVASCULAR: S1 and S2 present. No murmurs, rubs, or gallops. Lungs are clear, diminished PULMONARY: Chest is clear to auscultation, no wheezing or crackles. ABDOMEN: Soft, nontender, nondistended, normoactive bowel sounds. No palpable organomegaly. MUSCULOSKELETAL: No joint swelling or deformity. EXTREMITIES: No cyanosis, clubbing, or pedal edema. +2 lower extremity edema NEUROLOGICAL: Gross neurological examination did not reveal any focal deficits. Diffuse weakness, no focal deficits. SKIN: No rashes. Assessment Acute hypoxic respiratory failure due to acute CHF exacerbation Acute systolic CHF with EF 35%, Moderate TR/MR and moderate pulmonary hypertension Nonischemic Cardiomyopathy currently on IV dobutamine as well as entresto and aldactone. Entresto was decreased due to lower blood pressures. Acute renal failure due to ATN/cardiorenal syndrome Rule out community acquired pneumonia completed course of antibiotics. Elevated D Dimer Chronic atrial fibrillation anticoagulated with eliquis Chronic kidney disease stage III Hx of AICD Hx of COPD Thrombocytopenia Hypertension Hyperlipidemia GI prophylaxis DVT prophylaxis Full Code Plan Continue the patient on IV dobutamine Lasix currently on hold per nephrology Continue on fluid restriction 1500 mL Continue on entresto at decreased dose Continue to elevate lower extremities and continue with compression Continue accuchecks ACHS and sliding scale insulin Continue on midodrine Continue on flomax Strict intake and output monitoring PT/OT following Repeat labs in AM. The impression and plan of care has been dictated by Allison Segal Nurse Practitioner as directed. Dr. Josh MD I have performed a history and physical examination and medical decision making of this patient, discussed the same with the dictator, and agree with the dictators assessment and plan as written, documented as a scribe. Based on total visit time, I have performed more than 50% of this visit. Objective - Vital Signs Vital signs: Vital Signs Temp 97.8 F 11/07/23 08:00 Pulse 79 11/07/23 08:00 Resp 18 11/07/23 08:00 BP 111/69 11/07/23 08:00 Pulse Ox 97 11/07/23 08:00 FiO2 Intake & Output 11/06/23 11/07/23 11/07/23 18:59 06:59 18:59 Intake Total 905.745 0 240 Output Total 1525 1500 Balance -619.255 -1500 240 Weight 108 kg Intake: Intake, IV Titration 185.745 Amount DOBUTamine DRIP 500 mg In 185.745 Dextrose/Water 1 250ml. bag @ 2.5 MCG/KG/MIN 8.07 mls/hr IV .Q24H [facility] Rx#: [id number] Oral 720 0 240 Output: Urine 1525 1500 Other: Voiding Method Toilet Urinal Urinal Urinal # Voids 1 # Bowel Movements 1 - Labs CBC & Chem 7: 11/07/23 07:56 11/07/23 07:56 Labs: Abnormal Lab Results - Last 24 Hours (Table) 11/06/23 11/06/23 11/06/23 Range/Units 11:44 12:48 19:50 RBC (4.30-5.90) m/uL Hgb (13.0-17.5) gm/dL Hct (39.0-53.0) % MCHC (31.0-37.0) g/dL RDW (11.5-15.5) % Plt Count (150-450) k/uL Lymphocytes # (1.0-4.8) k/uL PT 14.3 H (10.0-12.5) sec INR 1.4 H (<1.2) POC Glucose (mg/dL) 128 H 130 H (70-110) mg/dL 11/07/23 11/07/23 Range/Units 06:01 07:56 RBC 3.78 L (4.30-5.90) m/uL Hgb 10.9 L (13.0-17.5) gm/dL Hct 36.5 L (39.0-53.0) % MCHC 29.9 L (31.0-37.0) g/dL RDW 16.2 H (11.5-15.5) % Plt Count 126 L (150-450) k/uL Lymphocytes # 0.6 L (1.0-4.8) k/uL PT (10.0-12.5) sec INR (<1.2) POC Glucose (mg/dL) 114 H (70-110) mg/dL Assessment and Plan Time with Patient: Less than 30
[2023-11-07 20:07] LABS: Glucose,Whole Blood 85 mg/dL (70-110)
[2023-11-07] MEDS: ATORVASTATIN 10 MG TAB PO SCH (20:23)
[2023-11-07] MEDS: METOPROLOL SUCCINATE (ER) 25 MG TAB.ER.24H PO SCH (20:23)
[2023-11-07] MEDS: TAMSULOSIN 0.4 MG CAP.ER.24H PO SCH (20:23)
[2023-11-08] MEDS: MIDODRINE 5 MG TAB PO PRN ×2 (03:57→12:01)
[2023-11-08 06:03] LABS: Glucose,Whole Blood 99 mg/dL (70-110)
[2023-11-08] MEDS: INSULIN ASPART (NovoLOG) 100 UNIT/ML VIAL SQ SCH ×4 (06:13→20:39)
[2023-11-08] MEDS: PANTOPRAZOLE 40 MG TABLET PO SCH (06:15)
[2023-11-08 08:16] LABS: African American GFR (CKD) 51 (>60 ml/min/1.73 sqM); Anion Gap 8 mmol/L; Blood Urea Nitrogen 89 mg/dL (9-20); Calcium 8.6 mg/dL (8.4-10.2); Carbon Dioxide 25 mmol/L (22-30); Chloride 110 mmol/L (98-107); Glucose 77 mg/dL (74-99); Non-African American GFR(CKD) 44 (>60 ml/min/1.73 sqM); Potassium 3.8 mmol/L (3.5-5.1); Sodium 143 mmol/L (137-145)
[2023-11-08] MEDS: IPRATROPIUM-ALBUTEROL 3 ML NEB INHALATION SCH ×4 (08:27→21:58)
[2023-11-08] MEDS: SACUBITRIL/VALSARTAN 24 MG-26 MG TABLET PO SCH ×2 (09:03→20:39)
[2023-11-08] MEDS: allopurinoL 300 MG TAB PO SCH (09:03)
[2023-11-08] MEDS: APIXABAN 2.5 MG TABLET PO SCH ×2 (09:04→20:39)
[2023-11-08] MEDS: FUROSEMIDE 10 MG/ML 4 ML VIAL IV SCH (09:04)
[2023-11-08] MEDS: FERROUS SULFATE 325 MG TAB PO SCH (09:04)
--- NOTE | 2023-11-08 10:59 | P.PN ---
Subjective Patient is seen in follow-up for acute kidney injury on chronic kidney disease. Renal function better. No vomiting or diarrhea. Denies chest pain or shortness of breath. On nasal cannula. Dobutamine discontinued this morning. Vital signs are stable. General: No acute distress. HEENT: Head exam is unremarkable. On nasal cannula. LUNGS: Notable rhonchi or wheezes. HEART: Rate and Rhythm are regular. ABDOMEN: Nontender. EXTREMITITES: Lower extremities wrapped. 1+ edema. Objective - Vital Signs Vital signs: Vital Signs Temp 98.1 F 11/08/23 03:57 Pulse 47 L 11/08/23 08:00 Resp 16 11/08/23 08:00 BP 89/60 11/08/23 08:00 Pulse Ox 96 11/08/23 08:00 FiO2 Intake & Output 11/07/23 11/08/23 11/08/23 18:59 06:59 18:59 Intake Total 1330.604 0 240 Output Total 1275 775 Balance 55.604 -775 240 Weight 103.7 kg Intake: Intake, IV Titration 192.604 Amount DOBUTamine DRIP 500 mg In 192.604 Dextrose/Water 1 250ml. bag @ 2.5 MCG/KG/MIN 8.07 mls/hr IV .Q24H [facility] Rx#: [id number] Oral 1138 0 240 Output: Urine 1275 775 Other: Voiding Method Urinal Urinal # Voids 1 - Labs CBC & Chem 7: 11/07/23 07:56 11/08/23 07:03 Labs: Abnormal Lab Results - Last 24 Hours (Table) 11/07/23 11/07/23 11/08/23 Range/Units 11:27 16:32 07:03 Chloride 110 H (98-107) mmol/L BUN 89 H (9-20) mg/dL Creatinine 1.51 H (0.66-1.25) mg/dL POC Glucose (mg/dL) 114 H 154 H (70-110) mg/dL Assessment and Plan Plan: Assessment: 1. Acute kidney injury secondary to ATN secondary to cardiorenal syndrome. Creatinine peaked at 2.33 this admission and is 1.51 today. 2. Acute on chronic systolic CHF with ejection fraction of 30-35% with mild to moderate tricuspid and mitral regurgitation with moderate pulmonary hypert ension. 3. Chronic kidney disease stage IIIa/b with baseline creatinine 1.5-1.6 secondary to nephrosclerosis and cardiorenal syndrome. UA benign. 4. Volume overload. Improving with diuresis. Plan: Maintain IV Lasix. Low-salt diet and 1500 mL fluid restriction. Dobutamine discontinued this morning. Repeat labs in the morning.
[2023-11-08 11:46] LABS: Glucose,Whole Blood 109 mg/dL (70-110)
--- NOTE | 2023-11-08 11:57 | P.PN ---
Subjective Progress Note Date: 11/08/23 On 11/06/2023, I am seeing this patient for a follow-up. The patient was hospitalized for worsening shortness of breath. Is a 78-year-old male patient with history of severe cardiomyopathy with an ejection fraction of 20 to 25%, nonsustained VT, and he has an AICD in place. He has chronic A-fib, COPD, hypertension hyperlipidemia. He was having exertional dyspnea. He was also having lower extremity edema and abdominal fullness. He typically wears oxygen 2 L/min nasal cannula 24 7. He underwent blood work including a viral screen that came back negative. He is known to have chronic kidney disease. His proBNP was elevated above 20,000 at time of admission. The patient was treated accordingly. The patient continues to be on oxygen at 2 L/min nasal cannula. He developed some acute on top of chronic kidney disease injury. Nevertheless, he continues to make urine output. The patient's most recent creatinine from yesterday was at 2.3 with a BUN of 120. Rest of the electrolytes are within normal limits. The patient is being seen by nephrology and cardiology. Remains on anticoagulation with Eliquis 2.5 mg twice a day. Remains on diuretics and the patient is currently on Aldactone 25 mg p.o. daily and Zaroxolyn was also being given an extra needs basis. He remains on dobutamine to augment the cardiac output at 2.5 mcg/kg/min. He is also on Entresto. Patient is still producing adequate amount of urine output. He admits that his lower extremity edema is improving. No new complaints otherwise for now. Is on oxygen at 2 L.On today's blood work, the patient's BUN is at 150 with a creatinine of 2.01 which is improved compared to yesterday. Sodium is at 139. Potassium levels at 3.9. The lungs noted at 6.2 with a hemoglobin of 10.5. Fluid balance over the past 24 hours has been negative. On 11/07/2023, the patient is feeling much better. Is producing adequate amount of urine output and is hemodynamically stable. He remains on dobutamine at 2.5 mg/kg/m. He is obviously mobilizing excess fluid. His BUN is down to 98 and the creatinine is down to 1.69 and the patient continues to have improvement in renal function. Sodium level is at 142, potassium levels at 3.8 and a serum bicarb is 25. The white cell count is at 6.2 with a hemoglobin of 10.9. The devi tello remains on 2 L of oxygen by nasal cannula. No other complaints. Is able to sit up on a chair and is calm and comfortable. He is also on anticoagulation with Eliquis 2.5 mg twice a day. Remains on Entresto On today's evaluation 11/08/2023, the patient is off the dobutamine as the patient was having some ectopies. However, the patient was kept on Lasix 40 mg IV every 24 hours. The Lasix dose has been dropped since yesterday. Rest of the medications remain unchanged. Is doing well. Is producing adequate amount of urine output. He remains in a negative fluid balance. Lower extremity edema is improving. Creatinine is also improving. BUN is down to 89 with a creatinine of 1.5. Sodium level is at 143. On and off, is using also oxygen 2 L/m nasal cannula. He is afebrile. No other significant events over the past 24 hours. The patient continues to show clinical signs of improvement as his CHF is being further optimized. Marketing Recruiter on the case. Dispatcher Service Chief also on the case. Objective - Vital Signs Vital signs: Vital Signs Temp 98.1 F 11/08/23 03:57 Pulse 47 L 11/08/23 08:00 Resp 16 11/08/23 08:00 BP 89/60 11/08/23 08:00 Pulse Ox 96 11/08/23 08:00 FiO2 Intake & Output 11/07/23 11/08/23 11/08/23 18:59 06:59 18:59 Intake Total 1330.604 0 240 Output Total 1275 775 Balance 55.604 -775 240 Weight 103.7 kg Intake: Intake, IV Titration 192.604 Amount DOBUTamine DRIP 500 mg In 192.604 Dextrose/Water 1 250ml. bag @ 2.5 MCG/KG/MIN 8.07 mls/hr IV .Q24H [facility] Rx#: [id number] Oral 1138 0 240 Output: Urine 1275 775 Other: Voiding Method Urinal Urinal # Voids 1 - Exam No acute distress, oriented 3. Currently on 2 L of oxygen. No use of accessory muscles, or conversational dyspnea, or audible wheezes. HEENT examination is grossly unremarkable. Mucous membranes are moist. No oral lesions. Neck supple. Full range of motion. No adenopathy thyromegaly or neck vein distention. Cardiovascular examination reveals regular rhythm rate. S1-S2 normal. No S3 or S4. No discernible murmur noted. Heart sounds are distant. Lungs reveal bilateral and mostly basilar crackles. No wheezes or rhonchi. Breath sounds equal bilaterally. Abdomen soft bowel sounds are heard. No masses or tenderness. Extremities are intact. No cyanosis or clubbing. There is 1+ to 2+ pitting edema. Chronic venous changes are also noted. Skin is without rash or lesion. Neurologic examination is brief but nonfocal. - Labs CBC & Chem 7: 11/07/23 07:56 11/08/23 07:03 Labs: Abnormal Lab Results - Last 24 Hours (Table) 11/07/23 11/07/23 11/08/23 Range/Units 11:27 16:32 07:03 Chloride 110 H (98-107) mmol/L BUN 89 H (9-20) mg/dL Creatinine 1.51 H (0.66-1.25) mg/dL POC Glucose (mg/dL) 114 H 154 H (70-110) mg/dL Assessment and Plan Plan: Assessment Acute on chronic shortness of breath secondary to decompensated heart failure. Chest x-ray from 11/05/2023 shows resolving pulmonary edema/CHF, clinically improving and the patient remains on dobutamine, currently on 2 L of oxygen by nasal cannula. Severe cardiomyopathy with an ejection fraction of 20 to 25%, currently on dobutamine to augment the cardiac output of 2.5 mcg/kg/min, and the patient is also on Entresto and Aldactone. Acute on chronic hypoxic respiratory failure currently on 3 L of oxygen by nasal cannula Acute on chronic kidney injury, renal function is being monitored, renal function continues to improve History of nonsustained VT and the patient has an AICD in place Chronic A-fib, currently on anticoagulation with Eliquis Hypertension Hyperlipidemia Obesity with a BMI of 31 Fluid overload with lower extremity and abdominal wall edema History of AICD placement Plan The patient continues to improve clinically and the renal function is also improving. Dobutamine has been discontinued Continue Lasix 40 mg IV every 24 hours Aldactone has been held Patient is on Entresto Patient is on metoprolol 12.5 mg at bedtime XL Patient is on long-term anticoagulation with Eliquis Monitor fluid balance Monitor renal function which is essentially improving We'll continue to follow
--- NOTE | 2023-11-08 14:59 | P.PN ---
Subjective Progress Note Date: 11/08/23 CHF The patient was seen and evaluated this morning. He continues to be short of breath with apparently the shortness of breath has improved. Lasix continues to be on hold at this point. His kidney function was worse yesterday. The repeated blood work to assess the kidney function still pending as of this morning. He is only on Aldactone at this point. He is on 3 L oxygen. He still have mild bilateral lower extremity edema. 11/06 Patient's states that he has had good urine output. Telemetry is atrial fibrillation. He remains on dobutamine drip per nephrology. He has had improvement of his renal function Blood pressure is improved 100/58, pulse ox 99% on 3 L, heart rate in the 60s to 80s. BUN 113, creatinine 2.01. INR 1.4. Hemoglobin is 10.5. 11/07 Patient states that he is feeling better today. He remains on dobutamine drip and IV Lasix per nephrology. Blood pressure 111/69, heart rate 79, pulse ox 97% on 3 L nasal cannula. Repeat blood work reveals improvement of renal function with BUN 98 creatinine 1.69. Hemoglobin is 10.9, platelet counts 126. Magnesium 2.5, potassium 3.8 Echocardiogram reveals EF of 30%. 11/08 Patient's renal function has improved Examination is remarkable for irregular rhythm with diminished breathing sounds bilaterally and mild bilateral lower extremity edema Assessment Heart failure exacerbation related to heart failure with reduced ejection fraction Severe nonischemic cardiomyopathy Status post AICD Atrial fibrillation Valvular heart disease Multiple comorbid conditions Plan IV Lasix per nephrology service Dobutamine drip per nephrology. Continue midodrine to 5 mg 3 times daily for systolic blood pressure less than 110. Continue patient on Entresto 24 mg26 mg one twice daily Continue metoprolol succinate 12.5 mg at bedtime Nurse practitioner note has been reviewed, I agree with the documented findings and plan of care. Patient was seen and examined. Objective - Vital Signs Vital signs: Vital Signs Temp 98.1 F 11/08/23 03:57 Pulse 47 L 11/08/23 08:00 Resp 16 11/08/23 08:00 BP 89/60 11/08/23 08:00 Pulse Ox 96 11/08/23 08:00 FiO2 Intake & Output 11/07/23 11/08/23 11/08/23 18:59 06:59 18:59 Intake Total 1330.604 0 240 Output Total 1275 775 Balance 55.604 -775 240 Weight 103.7 kg Intake: Intake, IV Titration 192.604 Amount DOBUTamine DRIP 500 mg In 192.604 Dextrose/Water 1 250ml. bag @ 2.5 MCG/KG/MIN 8.07 mls/hr IV .Q24H [facility] Rx#: [id number] Oral 1138 0 240 Output: Urine 1275 775 Other: Voiding Method Urinal Urinal Urinal # Voids 1 - Labs CBC & Chem 7: 11/07/23 07:56 11/08/23 07:03 Labs: Abnormal Lab Results - Last 24 Hours (Table) 11/07/23 11/07/23 11/08/23 Range/Units 11:27 16:32 07:03 Chloride 110 H (98-107) mmol/L BUN 89 H (9-20) mg/dL Creatinine 1.51 H (0.66-1.25) mg/dL POC Glucose (mg/dL) 114 H 154 H (70-110) mg/dL
--- NOTE | 2023-11-08 15:10 | P.PN ---
Subjective Progress Note Date: 11/08/23 Patient is a 78 year old male comes in with shortness of breath and lower extremity edema. He was found to have vascular congestion and was placed on IV lasix. Chest xray today reveals stable interstitial pneumonitis or mild venous congestion sumperimposed on a background chronic lung disease. Creatinine i mproved he is now taken off diuretics and has been maintained on dobutamine gtt. His EF is 30%. His entresto has been decreased. Creatinine today improved to 1.69. Lower extremity edema is significantly improved. Compression with PIPPA wraps in place. Patient does report feeling less short of breath. He remains on oxygen 2L nasal cannula does not wear oxygen at home. 11/08/2023 Patient is evaluated today on the cardiac unit. He is on 1500 ml fluid restriction. He is frustrated and feeling dry requesting humidification with his oxygen. He continues on IV lasix daily and dobutamine gtt has been stopped. His creatinine is down to 1.51 today. Requiring 2 to 3L of oxygen with saturations 98%. Review of Systems Constitutional: Denied any fatigue denied any fever. Cardio vascular: denied any chest pain, palpitations Gastrointestinal: denied any nausea, vomiting, diarrhea Pulmonary: Denied any shortness of breath cough Neurologic denied any new focal deficits All inpatient medications were reviewed and appropriate changes in these medications as dictated in the interval history and assessment and plan. PHYSICAL EXAMINATION: GENERAL: The patient is alert and oriented x3, not in any acute distress. Well developed, well nourished. On 2L oxygen HEENT: Pupils are round and equally reacting to light. EOMI. No scleral icterus. No conjunctival pallor. Normocephalic, atraumatic. No pharyngeal erythema. No thyromegaly. CARDIOVASCULAR: S1 and S2 present. No murmurs, rubs, or gallops. Lungs are clear, diminished PULMONARY: Chest is clear to auscultation, no wheezing or crackles. ABDOMEN: Soft, nontender, nondistended, normoactive bowel sounds. No palpable organomegaly. MUSCULOSKELETAL: No joint swelling or deformity. EXTREMITIES: No cyanosis, clubbing, or pedal edema. +2 lower extremity edema NEUROLOGICAL: Gross neurological examination did not reveal any focal deficits. Diffuse weakness, no focal deficits. SKIN: No rashes. Assessment Acute hypoxic respiratory failure due to acute CHF exacerbation Acute systolic CHF with EF 35%, Moderate TR/MR and moderate pulmonary hypertension Nonischemic Cardiomyopathy currently on IV dobutamine as well as entresto and aldactone. Entresto was decreased due to lower blood pressures. Acute renal failure due to ATN/cardiorenal syndrome Rule out community acquired pneumonia completed course of antibiotics. Elevated D Dimer Chronic atrial fibrillation anticoagulated with eliquis Chronic kidney disease stage III Hx of AICD Hx of COPD Thrombocytopenia Hypertension Hyperlipidemia GI prophylaxis DVT prophylaxis Full Code Plan IV dobutamine has been stopped. Continues on IV lasix 40 mg daily wtih strict intake and output monitoring. Continue on fluid restriction 1500 mL Continue on entresto at decreased dose Continue to elevate lower extremities and continue with compression Continue accuchecks ACHS and sliding scale insulin Continue on midodrine Continue on flomax Strict intake and output monitoring PT/OT following Repeat labs in AM. The impression and plan of care has been dictated by Allison Segal, Nurse Practitioner as directed. Dr. Josh MD I have performed a history and physical examination and medical decision making of this patient, discussed the same with the dictator, and agree with the dictators assessment and plan as written, documented as a scribe. Based on total visit time, I have performed more than 50% of this visit. Objective - Vital Signs Vital signs: Vital Signs Temp 98.1 F 11/08/23 03:57 Pulse 47 L 11/08/23 08:00 Resp 16 11/08/23 08:00 BP 89/60 11/08/23 08:00 Pulse Ox 96 11/08/23 08:00 FiO2 Intake & Output 11/07/23 11/08/23 11/08/23 18:59 06:59 18:59 Intake Total 1330.604 0 240 Output Total 1275 775 Balance 55.604 -775 240 Weight 103.7 kg Intake: Intake, IV Titration 192.604 Amount DOBUTamine DRIP 500 mg In 192.604 Dextrose/Water 1 250ml. bag @ 2.5 MCG/KG/MIN 8.07 mls/hr IV .Q24H [facility] Rx#: [id number] Oral 1138 0 240 Output: Urine 1275 775 Other: Voiding Method Urinal Urinal # Voids 1 - Labs CBC & Chem 7: 11/07/23 07:56 11/08/23 07:03 Labs: Abnormal Lab Results - Last 24 Hours (Table) 11/07/23 11/07/23 11/07/23 Range/Units 07:56 11:27 16:32 Chloride (98-107) mmol/L BUN 98 H (9-20) mg/dL Creatinine 1.69 H (0.66-1.25) mg/dL POC Glucose (mg/dL) 114 H 154 H (70-110) mg/dL Magnesium 2.5 H (1.6-2.3) mg/dL 11/08/23 Range/Units 07:03 Chloride 110 H (98-107) mmol/L BUN 89 H (9-20) mg/dL Creatinine 1.51 H (0.66-1.25) mg/dL POC Glucose (mg/dL) (70-110) mg/dL Magnesium (1.6-2.3) mg/dL Assessment and Plan Time with Patient: Less than 30
[2023-11-08 16:40] LABS: Glucose,Whole Blood 96 mg/dL (70-110)
[2023-11-08 19:54] LABS: Glucose,Whole Blood 175 mg/dL (70-110)
[2023-11-08] MEDS: TAMSULOSIN 0.4 MG CAP.ER.24H PO SCH (20:39)
[2023-11-08] MEDS: ATORVASTATIN 10 MG TAB PO SCH (20:39)
[2023-11-08] MEDS: METOPROLOL SUCCINATE (ER) 25 MG TAB.ER.24H PO SCH (20:39)
[2023-11-09] MEDS: MIDODRINE 5 MG TAB PO PRN ×3 (00:16→08:37)
[2023-11-09 06:06] LABS: Glucose,Whole Blood 111 mg/dL (70-110)
[2023-11-09] MEDS: INSULIN ASPART (NovoLOG) 100 UNIT/ML VIAL SQ SCH ×4 (06:23→20:21)
[2023-11-09] MEDS: PANTOPRAZOLE 40 MG TABLET PO SCH (06:29)
[2023-11-09] MEDS: IPRATROPIUM-ALBUTEROL 3 ML NEB INHALATION SCH ×4 (08:00→20:18)
[2023-11-09] MEDS: APIXABAN 2.5 MG TABLET PO SCH ×2 (08:37→20:29)
[2023-11-09] MEDS: SACUBITRIL/VALSARTAN 24 MG-26 MG TABLET PO SCH ×2 (08:37→20:29)
[2023-11-09] MEDS: FUROSEMIDE 10 MG/ML 4 ML VIAL IV SCH (08:37)
[2023-11-09] MEDS: FERROUS SULFATE 325 MG TAB PO SCH (08:37)
[2023-11-09] MEDS: allopurinoL 300 MG TAB PO SCH (08:37)
[2023-11-09 09:10] LABS: African American GFR (CKD) 56 (>60 ml/min/1.73 sqM); Anion Gap 5 mmol/L; Blood Urea Nitrogen 81 mg/dL (9-20); Calcium 8.7 mg/dL (8.4-10.2); Carbon Dioxide 28 mmol/L (22-30); Chloride 110 mmol/L (98-107); Glucose 89 mg/dL (74-99); Magnesium 2.4 mg/dL (1.6-2.3); Non-African American GFR(CKD) 49 (>60 ml/min/1.73 sqM); Sodium 143 mmol/L (137-145)
--- NOTE | 2023-11-09 10:53 | P.PN ---
Subjective Progress Note Date: 11/09/23 CHF The patient was seen and evaluated this morning. He continues to be short of breath with apparently the shortness of breath has improved. Lasix continues to be on hold at this point. His kidney function was worse yesterday. The repeated blood work to assess the kidney function still pending as of this morning. He is only on Aldactone at this point. He is on 3 L oxygen. He still have mild bilateral lower extremity edema. 11/06 Patient's states that he has had good urine output. Telemetry is atrial fibrillation. He remains on dobutamine drip per nephrology. He has had improvement of his renal function Blood pressure is improved 100/58, pulse ox 99% on 3 L, heart rate in the 60s to 80s. BUN 113, creatinine 2.01. INR 1.4. Hemoglobin is 10.5. 11/07 Patient states that he is feeling better today. He remains on dobutamine drip and IV Lasix per nephrology. Blood pressure 111/69, heart rate 79, pulse ox 97% on 3 L nasal cannula. Repeat blood work reveals improvement of renal function with BUN 98 creatinine 1.69. Hemoglobin is 10.9, platelet counts 126. Magnesium 2.5, potassium 3.8 Echocardiogram reveals EF of 30%. 11/08 Patient's renal function has improved 11/09 Patient is seen today in follow-up. Blood pressure on reassessment this morning was at 87/45, heart rate in 5773 range. Yesterday, nephrology discontinued dobutamine drip. Renal function continues to improve. BUN 81 and Creatinine 1.4. Patient is complaining of chronic wounds to the bilateral feet. Examination is remarkable for irregular rhythm with diminished breathing sounds bilaterally and mild bilateral lower extremity edema Assessment Heart failure exacerbation related to heart failure with reduced ejection fraction Severe nonischemic cardiomyopathy Status post AICD Atrial fibrillation Valvular heart disease Multiple comorbid conditions Plan Transition IV Lasix to oral Bumex 1 mg daily Continue midodrine to 5 mg 3 times daily for systolic blood pressure less than 110. Continue patient on Entresto 24 mg26 mg one twice daily Continue metoprolol succinate 12.5 mg at bedtime Consult wound center for wounds on bilateral feet. Nurse practitioner note has been reviewed, I agree with the documented findings and plan of care. Patient was seen and examined. Objective - Vital Signs Vital signs: Vital Signs Temp 98.1 F 11/09/23 04:00 Pulse 57 L 11/09/23 08:00 Resp 16 11/09/23 08:00 BP 87/45 11/09/23 08:00 Pulse Ox 90 L 11/09/23 08:00 FiO2 Intake & Output 11/08/23 11/09/23 11/09/23 18:59 06:59 18:59 Intake Total 480 120 420 Output Total 1380 1400 Balance -900 -1280 420 Weight 104.7 kg Intake: Oral 480 120 420 Output: Urine 1380 1400 Other: Voiding Method Urinal Urinal - Labs CBC & Chem 7: 11/07/23 07:56 11/09/23 07:24 Labs: Abnormal Lab Results - Last 24 Hours (Table) 11/08/23 11/09/23 11/09/23 Range/Units 19:52 06:01 07:24 Chloride 110 H (98-107) mmol/L BUN 81 H (9-20) mg/dL Creatinine 1.40 H (0.66-1.25) mg/dL POC Glucose (mg/dL) 175 H 111 H (70-110) mg/dL Magnesium 2.4 H (1.6-2.3) mg/dL
[2023-11-09 11:41] LABS: Glucose,Whole Blood 120 mg/dL (70-110)
--- NOTE | 2023-11-09 12:07 | P.PN ---
Subjective Patient is seen in follow-up for acute kidney injury on chronic kidney disease. Renal function better. No vomiting or diarrhea. Denies chest pain or shortness of breath. On nasal cannula. Transitioned to oral Bumex today. Vital signs are stable. General: No acute distress. HEENT: Head exam is unremarkable. On nasal cannula. LUNGS: Notable rhonchi or wheezes. HEART: Rate and Rhythm are regular. ABDOMEN: Nontender. EXTREMITITES: Lower extremities wrapped. 1+ edema. Objective - Vital Signs Vital signs: Vital Signs Temp 98.1 F 11/09/23 04:00 Pulse 57 L 11/09/23 08:00 Resp 16 11/09/23 08:00 BP 87/45 11/09/23 08:00 Pulse Ox 90 L 11/09/23 08:00 FiO2 Intake & Output 11/08/23 11/09/23 11/09/23 18:59 06:59 18:59 Intake Total 480 120 420 Output Total 1380 1400 Balance -900 -1280 420 Weight 104.7 kg Intake: Oral 480 120 420 Output: Urine 1380 1400 Other: Voiding Method Urinal Urinal Urinal - Labs CBC & Chem 7: 11/07/23 07:56 11/09/23 07:24 Labs: Abnormal Lab Results - Last 24 Hours (Table) 11/08/23 11/09/23 11/09/23 Range/Units 19:52 06:01 07:24 Chloride 110 H (98-107) mmol/L BUN 81 H (9-20) mg/dL Creatinine 1.40 H (0.66-1.25) mg/dL POC Glucose (mg/dL) 175 H 111 H (70-110) mg/dL Magnesium 2.4 H (1.6-2.3) mg/dL 11/09/23 Range/Units 11:38 Chloride (98-107) mmol/L BUN (9-20) mg/dL Creatinine (0.66-1.25) mg/dL POC Glucose (mg/dL) 120 H (70-110) mg/dL Magnesium (1.6-2.3) mg/dL Assessment and Plan Plan: Assessment: 1. Acute kidney injury secondary to ATN secondary to cardiorenal syndrome. Creatinine peaked at 2.33 this admission and is 1.4 today. 2. Acute on chronic systolic CHF with ejection fraction of 30-35% with mild to moderate tricuspid and mitral regurgitation with moderate pulmonary hypertension. 3. Chronic kidney disease stage IIIa/b with baseline creatinine 1.5-1.6 se condary to nephrosclerosis and cardiorenal syndrome. UA benign. 4. Volume overload. Improving with diuresis. Plan: Maintain Bumex. Low-salt diet and fluid restriction. I advised patient to maintain a low-salt diet and fluid restriction of less than 50 ounces per day. He was also advised to monitor his weight and notify physician if develops worsening edema gains more than 3 pounds a month duration. Repeat BMP and magnesium level 2-3 days postdischarge. Follow up outpatient in 1 week.
--- NOTE | 2023-11-09 14:24 | P.PN ---
Subjective Progress Note Date: 11/09/23 On 11/06/2023, I am seeing this patient for a follow-up. The patient was hospitalized for worsening shortness of breath. Is a 78-year-old male patient with history of severe cardiomyopathy with an ejection fraction of 20 to 25%, nonsustained VT, and he has an AICD in place. He has chronic A-fib, COPD, hypertension hyperlipidemia. He was having exertional dyspnea. He was also having lower extremity edema and abdominal fullness. He typically wears oxygen 2 L/min nasal cannula 24 7. He underwent blood work including a viral screen that came back negative. He is known to have chronic kidney disease. His proBNP was elevated above 20,000 at time of admission. The patient was treated accordingly. The patient continues to be on oxygen at 2 L/min nasal cannula. He developed some acute on top of chronic kidney disease injury. Nevertheless, he continues to make urine output. The patient's most recent creatinine from yesterday was at 2.3 with a BUN of 120. Rest of the electrolytes are within normal limits. The patient is being seen by nephrology and cardiology. Remains on anticoagulation with Eliquis 2.5 mg twice a day. Remains on diuretics and the patient is currently on Aldactone 25 mg p.o. daily and Zaroxolyn was also being given an extra needs basis. He remains on dobutamine to augment the cardiac output at 2.5 mcg/kg/min. He is also on Entresto. Patient is still producing adequate amount of urine output. He admits that his lower extremity edema is improving. No new complaints otherwise for now. Is on oxygen at 2 L.On today's blood work, the patient's BUN is at 150 with a creatinine of 2.01 which is improved compared to yesterday. Sodium is at 139. Potassium levels at 3.9. The lungs noted at 6.2 with a hemoglobin of 10.5. Fluid balance over the past 24 hours has been negative. On 11/07/2023, the patient is feeling much better. Is producing adequate amount of urine output and is hemodynamically stable. He remains on dobutamine at 2.5 mg/kg/m. He is obviously mobilizing excess fluid. His BUN is down to 98 and the creatinine is down to 1.69 and the patient continues to have improvement in renal function. Sodium level is at 142, potassium levels at 3.8 and a serum bicarb is 25. The white cell count is at 6.2 with a hemoglobin of 10.9. The devi tello remains on 2 L of oxygen by nasal cannula. No other complaints. Is able to sit up on a chair and is calm and comfortable. He is also on anticoagulation with Eliquis 2.5 mg twice a day. Remains on Entresto On today's evaluation 11/08/2023, the patient is off the dobutamine as the patient was having some ectopies. However, the patient was kept on Lasix 40 mg IV every 24 hours. The Lasix dose has been dropped since yesterday. Rest of the medications remain unchanged. Is doing well. Is producing adequate amount of urine output. He remains in a negative fluid balance. Lower extremity edema is improving. Creatinine is also improving. BUN is down to 89 with a creatinine of 1.5. Sodium level is at 143. On and off, is using also oxygen 2 L/m nasal cannula. He is afebrile. No other significant events over the past 24 hours. The patient continues to show clinical signs of improvement as his CHF is being further optimized. Rn Family on the case. [employer] Engineer also on the case. On 11/09/2023, the patient remains off the dobutamine. He is taking diuretics and the patient is taking Bumex 1 mg by mouth daily. This was switched to oral form today. No new complaints otherwise for now. He remains in negative fluid balance. There is improvement in the lower extremity edema. Rest of the cardiac medication remains unchanged. He continues to show improvement in renal function. Creatinine is down to 1.4. BUN is at 81 and sodium levels is 143. Potassium levels at 4.0. He remains on oxygen at 2 L and the patient has home O2. Pulse ox in the order of 93%. He is afebrile. Hemodynamics is stable. Is sitting up on a chair. Objective - Vital Signs Vital signs: Vital Signs Temp 98.1 F 11/09/23 04:00 Pulse 57 L 11/09/23 08:00 Resp 16 11/09/23 08:00 BP 87/45 11/09/23 08:00 Pulse Ox 90 L 11/09/23 08:00 FiO2 Intake & Output 11/08/23 11/09/23 11/09/23 18:59 06:59 18:59 Intake Total 480 120 420 Output Total 1380 1400 Balance -900 -1280 420 Weight 104.7 kg Intake: Oral 480 120 420 Output: Urine 1380 1400 Other: Voiding Method Urinal Urinal Urinal - Exam No acute distress, oriented 3. Currently on 2 L of oxygen. No use of accessory muscles, or conversational dyspnea, or audible wheezes. HEENT examination is grossly unremarkable. Mucous membranes are moist. No oral lesions. Neck supple. Full range of motion. No adenopathy thyromegaly or neck vein distention. Cardiovascular examination reveals regular rhythm rate. S1-S2 normal. No S3 or S4. No discernible murmur noted. Heart sounds are distant. Lungs reveal bilateral and mostly basilar crackles. No wheezes or rhonchi. Breath sounds equal bilaterally. Abdomen soft bowel sounds are heard. No masses or tenderness. Extremities are intact. No cyanosis or clubbing. There is 1+ to 2+ pitting edema. Chronic venous changes are also noted. Skin is without rash or lesion. Neurologic examination is brief but nonfocal. - Labs CBC & Chem 7: 11/07/23 07:56 11/09/23 07:24 Labs: Abnormal Lab Results - Last 24 Hours (Table) 11/08/23 11/09/23 11/09/23 Range/Units 19:52 06:01 07:24 Chloride 110 H (98-107) mmol/L BUN 81 H (9-20) mg/dL Creatinine 1.40 H (0.66-1.25) mg/dL POC Glucose (mg/dL) 175 H 111 H (70-110) mg/dL Magnesium 2.4 H (1.6-2.3) mg/dL Assessment and Plan Plan: Assessment Acute on chronic shortness of breath secondary to decompensated heart failure. Chest x-ray from 11/05/2023 shows resolving pulmonary edema/CHF, clinically improving and the patient remains on dobutamine, currently on 2 L of oxygen by nasal cannula. Clinically improved and the patient denies having any significant shortness of breath at this point in time. Severe cardiomyopathy with an ejection fraction of 20 to 25%, improved considerably with a combination of dobutamine and diuretics and the patient is currently off dobutamine. Diuretics of the switch to oral., and the patient is also on Entresto and Bumex Acute on chronic hypoxic respiratory failure currently on 2 L of oxygen by nasal cannula Acute on chronic kidney injury, renal function is being monitored, renal function continues to improve History of nonsustained VT and the patient has an AICD in place Chronic A-fib, currently on anticoagulation with Eliquis Hypertension Hyperlipidemia Obesity with a BMI of 31 Fluid overload with lower extremity and abdominal wall edema History of AICD placement Plan The patient continues to improve clinically and the renal function is also improving. Dobutamine has been discontinued Continue Bumex 1 mg by mouth daily Patient is on Entresto Patient is on metoprolol 12.5 mg at bedtime XL Patient is on long-term anticoagulation with Eliquis Monitor fluid balance Lower extremity edema is improving. Renal function also continues to improve Patient has home O2 We'll continue to follow
--- NOTE | 2023-11-09 15:50 | P.PN ---
Subjective Progress Note Date: 11/09/23 Patient is a 78 year old male comes in with shortness of breath and lower extremity edema. He was found to have vascular congestion and was placed on IV lasix. Chest xray today reveals stable interstitial pneumonitis or mild venous congestion sumperimposed on a background chronic lung disease. Creatinine i mproved he is now taken off diuretics and has been maintained on dobutamine gtt. His EF is 30%. His entresto has been decreased. Creatinine today improved to 1.69. Lower extremity edema is significantly improved. Compression with PIPPA wraps in place. Patient does report feeling less short of breath. He remains on oxygen 2L nasal cannula does not wear oxygen at home. 11/08/2023 Patient is evaluated today on the cardiac unit. He is on 1500 ml fluid restriction. He is frustrated and feeling dry requesting humidification with his oxygen. He continues on IV lasix daily and dobutamine gtt has been stopped. His creatinine is down to 1.51 today. Requiring 2 to 3L of oxygen with saturations 98%. 11/09/2023 Patient is evaluated today sitting up in the chair. States his legs are burning PIPPA wraps were taken off. He continues with 1-2 + lower extremity edema but overall improving. He remains on diuretics and creatinine has further improved to 1.40. His blood pressure is on running between 100-mid 80s systolic. He is on 2L of oxygen. On 1500 CC fluid restriction. Review of Systems Constitutional: Denied any fatigue denied any fever. Cardio vascular: denied any chest pain, palpitations Gastrointestinal: denied any nausea, vomiting, diarrhea Pulmonary: Denied any shortness of breath cough Neurologic denied any new focal deficits All inpatient medications were reviewed and appropriate changes in these medications as dictated in the interval history and assessment and plan. PHYSICAL EXAMINATION: GENERAL: The patient is alert and oriented x3, not in any acute distress. Well developed, well nourished. On 2L oxygen HEENT: Pupils are round and equally reacting to light. EOMI. No scleral icterus. No conjunctival pallor. Normocephalic, atraumatic. No pharyngeal erythema. No thyromegaly. CARDIOVASCULAR: S1 and S2 present. No murmurs, rubs, or gallops. Lungs are clear, diminished PULMONARY: Chest is clear to auscultation, no wheezing or crackles. ABDOMEN: Soft, nontender, nondistended, normoactive bowel sounds. No palpable organomegaly. MUSCULOSKELETAL: No joint swelling or deformity. EXTREMITIES: No cyanosis, clubbing, or pedal edema. +2 lower extremity edema NEUROLOGICAL: Gross neurological examination did not reveal any focal deficits. Diffuse weakness, no focal deficits. SKIN: No rashes. Skin tear left upper extremity. Assessment Acute hypoxic respiratory failure due to acute CHF exacerbation Acute systolic CHF with EF 35%, Moderate TR/MR and moderate pulmonary hypertension Nonischemic Cardiomyopathy currently on IV dobutamine as well as entresto and aldactone. Entresto was decreased due to lower blood pressures. Acute renal failure due to ATN/cardiorenal syndrome Rule out community acquired pneumonia completed course of antibiotics. Elevated D Dimer Chronic atrial fibrillation anticoagulated with eliquis Chronic kidney disease stage III Hx of AICD Hx of COPD Thrombocytopenia Hypertension Hyperlipidemia GI prophylaxis DVT prophylaxis Full Code Plan IV dobutamine has been stopped. diuretics changed to bumex daily. strict intake and output monitoring. Continue on fluid restriction 1500 mL Continue on entresto at decreased dose Continue to elevate lower extremities and continue with compression Continue accuchecks ACHS and sliding scale insulin Continue on midodrine Continue on flomax Strict intake and output monitoring PT/OT following Repeat labs in AM. The impression and plan of care has been dictated by Allison Segal, Nurse Practitioner as directed. Dr. Josh MD I have performed a history and physical examination and medical decision making of this patient, discussed the same with the dictator, and agree with the dictators assessment and plan as written, documented as a scribe. Based on total visit time, I have performed more than 50% of this visit. Objective - Vital Signs Vital signs: Vital Signs Temp 98.1 F 11/09/23 04:00 Pulse 57 L 11/09/23 08:00 Resp 16 11/09/23 08:00 BP 87/45 11/09/23 08:00 Pulse Ox 90 L 11/09/23 08:00 FiO2 Intake & Output 11/08/23 11/09/23 11/09/23 18:59 06:59 18:59 Intake Total 480 120 420 Output Total 1380 1400 Balance -900 -1280 420 Weight 104.7 kg Intake: Oral 480 120 420 Output: Urine 1380 1400 Other: Voiding Method Urinal Urinal - Labs CBC & Chem 7: 11/07/23 07:56 11/09/23 07:24 Labs: Abnormal Lab Results - Last 24 Hours (Table) 11/08/23 11/09/23 11/09/23 Range/Units 19:52 06:01 07:24 Chloride 110 H (98-107) mmol/L BUN 81 H (9-20) mg/dL Creatinine 1.40 H (0.66-1.25) mg/dL POC Glucose (mg/dL) 175 H 111 H (70-110) mg/dL Magnesium 2.4 H (1.6-2.3) mg/dL Assessment and Plan Time with Patient: Less than 30
[2023-11-09 16:42] LABS: Glucose,Whole Blood 92 mg/dL (70-110)
[2023-11-09 20:11] LABS: Glucose,Whole Blood 131 mg/dL (70-110)
[2023-11-09] MEDS: TAMSULOSIN 0.4 MG CAP.ER.24H PO SCH (20:29)
[2023-11-09] MEDS: ATORVASTATIN 10 MG TAB PO SCH (20:29)
[2023-11-09] MEDS: METOPROLOL SUCCINATE (ER) 25 MG TAB.ER.24H PO SCH (20:29)
[2023-11-10] MEDS: MIDODRINE 5 MG TAB PO PRN (04:12)
[2023-11-10 06:19] LABS: Glucose,Whole Blood 109 mg/dL (70-110)
[2023-11-10] MEDS: INSULIN ASPART (NovoLOG) 100 UNIT/ML VIAL SQ SCH (06:36)
[2023-11-10] MEDS: PANTOPRAZOLE 40 MG TABLET PO SCH (06:36)
[2023-11-10 07:17] LABS: Anisocytosis Slight; Basophils % (A) 0 %; Eosinophils # (A) 0.1 k/uL (0-0.7); Eosinophils % (A) 2 %; HCT 33.3 % (39.0-53.0); Hypochromasia Marked; Lymphocytes # (A) 0.7 k/uL (1.0-4.8); Lymphocytes % (A) 13 %; MCH 29.4 pg (25.0-35.0); MCHC 30.2 g/dL (31.0-37.0); MCV 97.4 fL (80.0-100.0); Macrocytosis Slight; Mean Platelet Volume 11.5; Monocytes # (A) 0.3 k/uL (0-1.0); Monocytes % (A) 6 %; Neutrophils % (A) 77 %; RBC 3.41 m/uL (4.30-5.90); WBC 5.2 k/uL (3.8-10.6)
[2023-11-10 07:28] LABS: African American GFR (CKD) 61 (>60 ml/min/1.73 sqM); Anion Gap 7 mmol/L; Blood Urea Nitrogen 71 mg/dL (9-20); Calcium 8.8 mg/dL (8.4-10.2); Carbon Dioxide 27 mmol/L (22-30); Chloride 111 mmol/L (98-107); Glucose 105 mg/dL (74-99); Magnesium 2.3 mg/dL (1.6-2.3); Non-African American GFR(CKD) 53 (>60 ml/min/1.73 sqM); Potassium 4.2 mmol/L (3.5-5.1); Sodium 145 mmol/L (137-145)
[2023-11-10 08:51] LABS: Platelet Count 98 k/uL (150-450)
[2023-11-10] MEDS ORDERED: BUMETANIDE 1 MG TAB PO SCH (09:00)
[2023-11-10] MEDS: allopurinoL 300 MG TAB PO SCH (09:02)
[2023-11-10] MEDS: SACUBITRIL/VALSARTAN 24 MG-26 MG TABLET PO SCH (09:02)
[2023-11-10] MEDS: APIXABAN 2.5 MG TABLET PO SCH (09:02)
[2023-11-10] MEDS: FERROUS SULFATE 325 MG TAB PO SCH (09:02)
[2023-11-10] MEDS: IPRATROPIUM-ALBUTEROL 3 ML NEB INHALATION SCH ×2 (09:23→11:23)
[2023-11-10 09:42] VITALS: BP 102/57; PULSE 47; RESP 14; TEMP 97.4
--- NOTE | 2023-11-10 11:29 | P.PN ---
Subjective Patient is seen in follow-up for acute kidney injury on chronic kidney disease. Renal function improved. No vomiting or diarrhea. Denies chest pain or shortness of breath. On nasal cannula. Now on oral Bumex. Vital signs are stable. General: No acute distress. HEENT: Head exam is unremarkable. On nasal cannula. LUNGS: Notable rhonchi or wheezes. HEART: Rate and Rhythm are regular. ABDOMEN: Nontender. EXTREMITITES: Lower extremities wrapped. 1+ edema. Objective - Vital Signs Vital signs: Vital Signs Temp 97.4 F L 11/10/23 08:00 Pulse 47 L 11/10/23 08:00 Resp 14 11/10/23 08:00 BP 102/57 11/10/23 08:00 Pulse Ox 98 11/10/23 08:00 FiO2 Intake & Output 11/09/23 11/10/23 11/10/23 18:59 06:59 18:59 Intake Total 900 240 240 Output Total 800 700 Balance 100 -460 240 Intake: Oral 900 240 240 Output: Urine 800 700 Other: Voiding Method Urinal Urinal Urinal - Labs CBC & Chem 7: 11/10/23 06:43 11/10/23 06:43 Labs: Abnormal Lab Results - Last 24 Hours (Table) 11/09/23 11/09/23 11/10/23 Range/Units 11:38 20:10 06:43 RBC 3.41 L (4.30-5.90) m/uL Hgb 10.0 L (13.0-17.5) gm/dL Hct 33.3 L (39.0-53.0) % MCHC 30.2 L (31.0-37.0) g/dL RDW 16.0 H (11.5-15.5) % Plt Count 98 L (150-450) k/uL Lymphocytes # 0.7 L (1.0-4.8) k/uL Chloride (98-107) mmol/L BUN (9-20) mg/dL Creatinine (0.66-1.25) mg/dL Glucose (74-99) mg/dL POC Glucose (mg/dL) 120 H 131 H (70-110) mg/dL 11/10/23 Range/Units 06:43 RBC (4.30-5.90) m/uL Hgb (13.0-17.5) gm/dL Hct (39.0-53.0) % MCHC (31.0-37.0) g/dL RDW (11.5-15.5) % Plt Count (150-450) k/uL Lymphocytes # (1.0-4.8) k/uL Chloride 111 H (98-107) mmol/L BUN 71 H (9-20) mg/dL Creatinine 1.31 H (0.66-1.25) mg/dL Glucose 105 H (74-99) mg/dL POC Glucose (mg/dL) (70-110) mg/dL Assessment and Plan Plan: Assessment: 1. Acute kidney injury secondary to ATN secondary to cardiorenal syndrome. Creatinine peaked at 2.33 this admission and is 1.31 today. 2. Acute on chronic systolic CHF with ejection fraction of 30-35% with mild to moderate tricuspid and mitral regurgitation with moderate pulmonary hypertension. 3. Chronic kidney disease stage IIIa/b with baseline creatinine 1.5-1.6 secondary to nephrosclerosis and cardiorenal syndrome. UA benign. 4. Volume overload. Improved with diuresis. Plan: Maintain Bumex. I advised patient to maintain a low-salt diet and fluid restriction of less than 50 ounces per day. He was also advised to monitor his weight and notify physician if develops wo rsening edema gains more than 3 pounds in 1 week duration. Repeat BMP and magnesium level 2-3 days postdischarge. Follow up outpatient in 1 week. Discussed with patient and his present at bedside.
[2023-11-10 11:56] LABS: Glucose,Whole Blood 107 mg/dL (70-110)
--- NOTE | 2023-11-10 13:20 | P.PN ---
Subjective Progress Note Date: 11/10/23 CHF The patient was seen and evaluated this morning. He continues to be short of breath with apparently the shortness of breath has improved. Lasix continues to be on hold at this point. His kidney function was worse yesterday. The repeated blood work to assess the kidney function still pending as of this morning. He is only on Aldactone at this point. He is on 3 L oxygen. He still have mild bilateral lower extremity edema. 11/06 Patient's states that he has had good urine output. Telemetry is atrial fibrillation. He remains on dobutamine drip per nephrology. He has had improvement of his renal function Blood pressure is improved 100/58, pulse ox 99% on 3 L, heart rate in the 60s to 80s. BUN 113, creatinine 2.01. INR 1.4. Hemoglobin is 10.5. 11/07 Patient states that he is feeling better today. He remains on dobutamine drip and IV Lasix per nephrology. Blood pressure 111/69, heart rate 79, pulse ox 97% on 3 L nasal cannula. Repeat blood work reveals improvement of renal function with BUN 98 creatinine 1.69. Hemoglobin is 10.9, platelet counts 126. Magnesium 2.5, potassium 3.8 Echocardiogram reveals EF of 30%. 11/08 Patient's renal function has improved 11/09 Patient is seen today in follow-up. Blood pressure on reassessment this morning was at 87/45, heart rate in 5773 range. Yesterday, nephrology discontinued dobutamine drip. Renal function continues to improve. BUN 81 and Creatinine 1.4. Patient is complaining of chronic wounds to the bilateral feet. 11/10 Blood pressure 102/65, heart rate 72, pulse ox 96% on 2 L nasal cannula, patient has been afebrile. WBC 5.2, hemoglobin 10, platelet count 98. BUN 71 creatinine 1.31. Patient has now been off dobutamine drip for 2 days. Kidney function seems to be stable. Patient is tolerating Entresto. Examination is remarkable for irregular rhythm with diminished breathing sounds bilaterally and mild bilateral lower extremity edema Assessment Heart failure exacerbation related to heart failure with reduced ejection fraction Severe nonischemic cardiomyopathy Status post AICD Atrial fibrillation Valvular heart disease Multiple comorbid conditions Plan Continue oral Bumex 1 mg daily Continue midodrine to 5 mg 3 times daily for systolic blood pressure less than 110. Continue patient on Entresto 24 mg26 mg one twice daily Continue metoprolol succinate 12.5 mg at bedtime Consult wound center for wounds on bilateral feet. Patient is cleared for discharge from cardiology and may follow-up with Dr. Reid in 1 week. Nurse practitioner note has been reviewed, I agree with the documented findings and plan of care. Patient was seen and examined. Objective - Vital Signs Vital signs: Vital Signs Temp 97.6 F 11/10/23 02:00 Pulse 72 11/10/23 02:00 Resp 17 11/10/23 02:00 BP 102/65 11/10/23 02:00 Pulse Ox 96 11/10/23 02:00 FiO2 Intake & Output 11/09/23 11/10/23 11/10/23 18:59 06:59 18:59 Intake Total 900 240 Output Total 800 700 Balance 100 -460 Intake: Oral 900 240 Output: Urine 800 700 Other: Voiding Method Urinal Urinal - Labs CBC & Chem 7: 11/10/23 06:43 11/10/23 06:43 Labs: Abnormal Lab Results - Last 24 Hours (Table) 11/09/23 11/09/23 11/10/23 Range/Units 11:38 20:10 06:43 RBC 3.41 L (4.30-5.90) m/uL Hgb 10.0 L (13.0-17.5) gm/dL Hct 33.3 L (39.0-53.0) % MCHC 30.2 L (31.0-37.0) g/dL RDW 16.0 H (11.5-15.5) % Plt Count 98 L (150-450) k/uL Lymphocytes # 0.7 L (1.0-4.8) k/uL Chloride (98-107) mmol/L BUN (9-20) mg/dL Creatinine (0.66-1.25) mg/dL Glucose (74-99) mg/dL POC Glucose (mg/dL) 120 H 131 H (70-110) mg/dL 11/10/23 Range/Units 06:43 RBC (4.30-5.90) m/uL Hgb (13.0-17.5) gm/dL Hct (39.0-53.0) % MCHC (31.0-37.0) g/dL RDW (11.5-15.5) % Plt Count (150-450) k/uL Lymphocytes # (1.0-4.8) k/uL Chloride 111 H (98-107) mmol/L BUN 71 H (9-20) mg/dL Creatinine 1.31 H (0.66-1.25) mg/dL Glucose 105 H (74-99) mg/dL POC Glucose (mg/dL) (70-110) mg/dL
--- NOTE | 2023-11-10 13:56 | P.PN ---
Subjective Progress Note Date: 11/10/23 On 11/06/2023, I am seeing this patient for a follow-up. The patient was hospitalized for worsening shortness of breath. Is a 78-year-old male patient with history of severe cardiomyopathy with an ejection fraction of 20 to 25%, nonsustained VT, and he has an AICD in place. He has chronic A-fib, COPD, hypertension hyperlipidemia. He was having exertional dyspnea. He was also having lower extremity edema and abdominal fullness. He typically wears oxygen 2 L/min nasal cannula 24 7. He underwent blood work including a viral screen that came back negative. He is known to have chronic kidney disease. His proBNP was elevated above 20,000 at time of admission. The patient was treated accordingly. The patient continues to be on oxygen at 2 L/min nasal cannula. He developed some acute on top of chronic kidney disease injury. Nevertheless, he continues to make urine output. The patient's most recent creatinine from yesterday was at 2.3 with a BUN of 120. Rest of the electrolytes are within normal limits. The patient is being seen by nephrology and cardiology. Remains on anticoagulation with Eliquis 2.5 mg twice a day. Remains on diuretics and the patient is currently on Aldactone 25 mg p.o. daily and Zaroxolyn was also being given an extra needs basis. He remains on dobutamine to augment the cardiac output at 2.5 mcg/kg/min. He is also on Entresto. Patient is still producing adequate amount of urine output. He admits that his lower extremity edema is improving. No new complaints otherwise for now. Is on oxygen at 2 L.On today's blood work, the patient's BUN is at 150 with a creatinine of 2.01 which is improved compared to yesterday. Sodium is at 139. Potassium levels at 3.9. The lungs noted at 6.2 with a hemoglobin of 10.5. Fluid balance over the past 24 hours has been negative. On 11/07/2023, the patient is feeling much better. Is producing adequate amount of urine output and is hemodynamically stable. He remains on dobutamine at 2.5 mg/kg/m. He is obviously mobilizing excess fluid. His BUN is down to 98 and the creatinine is down to 1.69 and the patient continues to have improvement in renal function. Sodium level is at 142, potassium levels at 3.8 and a serum bicarb is 25. The white cell count is at 6.2 with a hemoglobin of 10.9. The devi tello remains on 2 L of oxygen by nasal cannula. No other complaints. Is able to sit up on a chair and is calm and comfortable. He is also on anticoagulation with Eliquis 2.5 mg twice a day. Remains on Entresto On today's evaluation 11/08/2023, the patient is off the dobutamine as the patient was having some ectopies. However, the patient was kept on Lasix 40 mg IV every 24 hours. The Lasix dose has been dropped since yesterday. Rest of the medications remain unchanged. Is doing well. Is producing adequate amount of urine output. He remains in a negative fluid balance. Lower extremity edema is improving. Creatinine is also improving. BUN is down to 89 with a creatinine of 1.5. Sodium level is at 143. On and off, is using also oxygen 2 L/m nasal cannula. He is afebrile. No other significant events over the past 24 hours. The patient continues to show clinical signs of improvement as his CHF is being further optimized. Telemetry Monitor on the case. Shift Mechanic also on the case. On 11/09/2023, the patient remains off the dobutamine. He is taking diuretics and the patient is taking Bumex 1 mg by mouth daily. This was switched to oral form today. No new complaints otherwise for now. He remains in negative fluid balance. There is improvement in the lower extremity edema. Rest of the cardiac medication remains unchanged. He continues to show improvement in renal function. Creatinine is down to 1.4. BUN is at 81 and sodium levels is 143. Potassium levels at 4.0. He remains on oxygen at 2 L and the patient has home O2. Pulse ox in the order of 93%. He is afebrile. Hemodynamics is stable. Is sitting up on a chair. On 11/10/2023, the patient is doing well. Function continues to improve. He is producing adequate, but urine output. He has no specific complaints. Currently is on Bumex 1 mg by mouth daily. The patient is also on oxygen 2 L/m nasal cannula. The BUN is at 70 1.3 AND A SODIUM LEVELS OF 145. THE MEDICINES AT 5.2 WITH A HEMOGLOBIN OF 10. No other significant events overnight. The patient has no specific complaints. He feels much improved. Objective - Vital Signs Vital signs: Vital Signs Temp 97.4 F L 11/10/23 08:00 Pulse 47 L 11/10/23 08:00 Resp 14 11/10/23 08:00 BP 102/57 11/10/23 08:00 Pulse Ox 98 11/10/23 08:00 FiO2 Intake & Output 11/09/23 11/10/23 11/10/23 18:59 06:59 18:59 Intake Total 900 240 Output Total 800 700 Balance 100 -460 Intake: Oral 900 240 Output: Urine 800 700 Other: Voiding Method Urinal Urinal Urinal - Exam No acute distress, oriented 3. Currently on 2 L of oxygen. No use of accessory muscles, or conversational dyspnea, or audible wheezes. HEENT examination is grossly unremarkable. Mucous membranes are moist. No oral lesions. Neck supple. Full range of motion. No adenopathy thyromegaly or neck vein di stention. Cardiovascular examination reveals regular rhythm rate. S1-S2 normal. No S3 or S4. No discernible murmur noted. Heart sounds are distant. Lungs reveal bilateral and mostly basilar crackles. No wheezes or rhonchi. Breath sounds equal bilaterally. Abdomen soft bowel sounds are heard. No masses or tenderness. Extremities are intact. No cyanosis or clubbing. There is 1+ to 2+ pitting edema. Chronic venous changes are also noted. Skin is without rash or lesion. Neurologic examination is brief but nonfocal. - Labs CBC & Chem 7: 11/10/23 06:43 11/10/23 06:43 Labs: Abnormal Lab Results - Last 24 Hours (Table) 11/09/23 11/09/23 11/10/23 Range/Units 11:38 20:10 06:43 RBC 3.41 L (4.30-5.90) m/uL Hgb 10.0 L (13.0-17.5) gm/dL Hct 33.3 L (39.0-53.0) % MCHC 30.2 L (31.0-37.0) g/dL RDW 16.0 H (11.5-15.5) % Plt Count 98 L (150-450) k/uL Lymphocytes # 0.7 L (1.0-4.8) k/uL Chloride (98-107) mmol/L BUN (9-20) mg/dL Creatinine (0.66-1.25) mg/dL Glucose (74-99) mg/dL POC Glucose (mg/dL) 120 H 131 H (70-110) mg/dL 11/10/23 Range/Units 06:43 RBC (4.30-5.90) m/uL Hgb (13.0-17.5) gm/dL Hct (39.0-53.0) % MCHC (31.0-37.0) g/dL RDW (11.5-15.5) % Plt Count (150-450) k/uL Lymphocytes # (1.0-4.8) k/uL Chloride 111 H (98-107) mmol/L BUN 71 H (9-20) mg/dL Creatinine 1.31 H (0.66-1.25) mg/dL Glucose 105 H (74-99) mg/dL POC Glucose (mg/dL) (70-110) mg/dL Assessment and Plan Plan: Assessment Acute on chronic shortness of breath secondary to decompensated heart failure. Chest x-ray from 11/05/2023 shows resolving pulmonary edema/CHF, clinically improving and the patient remains on dobutamine, currently on 2 L of oxygen by nasal cannula. Clinically improved and the patient denies having any signifi cant shortness of breath at this point in time. Severe cardiomyopathy with an ejection fraction of 20 to 25%, improved considerably with a combination of dobutamine and diuretics and the patient is c urrently off dobutamine. Diuretics of the switch to oral., and the patient is also on Entresto and Bumex Acute on chronic hypoxic respiratory failure currently on 2 L of oxygen by nasal cannula Acute on chronic kidney injury, renal function is being monitored, renal function continues to improve History of nonsustained VT and the patient has an AICD in place Chronic A-fib, currently on anticoagulation with Eliquis Hypertension Hyperlipidemia Obesity with a BMI of 31 Fluid overload with lower extremity and abdominal wall edema History of AICD placement Plan The patient continues to improve clinically and the renal function is also improving. Continue Bumex 1 mg by mouth daily Patient is on Entresto Patient is on metoprolol 12.5 mg at bedtime XL Patient is on long-term anticoagulation with Eliquis Monitor fluid balance Lower extremity edema is improving. Renal function also continues to improve Patient has home O2 Renal function continues to improve and the creatinine is down to 1.3 We'll continue to follow Discharge planning is in progress
--- NOTE | 2023-11-12 22:56 | P.DS ---
Providers Date of admission: 10/30/23 16:16 Attending physician: Gilbert Tellez Consults: 10/31/23 09:54 Consult Physician Urgent Consulting Provider: Brett Reid Consult Reason/Comments: sob, pulm edema, chf Do you want consulting provider notified?: Yes 10/31/23 12:24 Consult Physician Routine Consulting Provider: Manuel Moreno Consult Reason/Comments: pna Do you want consulting provider notified?: Yes Consult Physician Urgent Consulting Provider: Gaurav Francis Consult Reason/Comments: pna, sob,copd Do you want consulting provider notified?: Yes 11/03/23 13:07 Consult Physician Routine Consulting Provider: Ramya Walker Consult Reason/Comments: arf Do you want consulting provider notified?: Yes Primary care physician: Mago Reeder Hospital Course: Final Diagnosis .Acute on chronic hypoxic respiratory failure due to acute CHF exacerbation,. Maintained on 2L outpatient nasal cannula. Acute systolic CHF with EF 35%, Moderate TR/MR and moderate pulmonary hypertension Nonischemic Cardiomyopathy currently on IV dobutamine as well as entresto and aldactone. Entresto was decreased due to lower blood pressures. Acute renal failure due to ATN/cardiorenal syndrome Rule out community acquired pneumonia completed course of antibiotics. Elevated D Dimer Chronic atrial fibrillation anticoagulated with eliquis Chronic kidney disease stage III Hx of AICD Hx of COPD Thrombocytopenia Hypertension Discharge Disposition Stable for discharge home. Patient has been discharged on 1 mg oral bumex daily as well as decreased dose of entresto due to low blood pressures. Patient is also placed on midodrine 5 mg TID and show hold for systolic BP greater than 100. Patient is taken off spironolactone and metolazone. Toprol XL has been decreased. Continue on 1500 mL fluid restriction or 30-40 fluid ounces per 24 hours. Follow a low salt diet. Recommend to monitor weight daily and keep log for f/u with providers. Notify physician if more than 3 lbs of weight gained in a 1 week duration. Continue on oxygen support. Continue Follow up with your delivery room clerk. Continue using metahoney on the leg ulcerations and follow up with [facility]. Repeat labs in 2 to 3 days. Recommend to follow up with PCP Dr Mago Reeder in 1 to 2 days. Additionally patient to see Dr. Gomez, and Dr. Reid. Per chest CT report as described, patient recommended to have a follow up CT chest in 6 months time. Hospital Course Patient is a 78 year old male history of CKD stage III, chronic atrial fibrillation, nonischemic cardiomyopathy, heart failure, COPD, and AICD. Patient comes in with shortness of breath and lower extremity edema. He was found to have vascular congestion and was placed on IV lasix. His initial chest xray also reveals cardiomegaly with diffuse interstitial and patchy opacities especially in the mid and lower lungs. Correlate for CHF vs. multifocal pneumonia or atypical pneumonia. ID was consulted and patient did receive empiric antibiotic coverage. He had a chest CT which shows moderate to severe cardiomegaly with Pulmonary vascular congestion. AICD in place. Moderate to heavy atherosclerotic calcifications of the coronary arteries, aorta and the major branches. Moderate pulmonary emphysema. Extensive groundglass pulmonary opacities with mosaic pattern mostly in the upper lobes, This can be seen with pulmonary edema, pulmonary hemorrhage, or parenchymal disease including acute to subacute infection (including atypical infectious causes). Obstructive small airways disease or occlusive vascular disease are possible, a few interspersed subcentimeter groundglass nodular densities, nonspecific could be infectious/inflammatory. Cirrhotic hepatic morphology. Splenomegaly. Moderate perihepatic and perisplenic ascites. Chronic and likely incidental findings as described above. He continued on IV lasix. Had echocardiogram done revealing EF of 30% with severe right ventricular dilation. Moderate pulmonary hypertension, mild to moderate MR and TR. Patient did present with creatinine of 1.56 which peaked at 2.33, nephrology was consulted. He was taken off diuretics and has been maintained on dobutamine gtt. His entresto has been decreased. Lower extremity edema is significantly improved. Compression with PIPPA wraps in place. Patient does report feeling less short of breath. He remains on oxygen 2L nasal cannula. Does wear home oxygen. His creatinine is down to 1.31. He completed course of antibiotics, ID felt findings were more related to CHF. No fever and WBC has remained normal this admission. His lungs are now clear, His edema has improved. As above he is to continue with metahoney to the leg scabs. He will be discharged home. Please see medication reconciliation for a list of current medications. Thank you for allowing us to participate in the care of this patient. The impression and plan of care has been dictated by Allison Segal, Nurse Practitioner as directed. Dr. Josh MD I have performed a history and physical examination and medical decision making of this patient, discussed the same with the dictator, and agree with the dictators assessment and plan as written, documented as a scribe. Based on total visit time, I have performed more than 50% of this visit. Patient Condition at Discharge: Fair Plan - Discharge Summary Discharge Rx Participant: Yes New Discharge Prescriptions: New Bumetanide [BUMEX] 1 mg PO DAILY #30 tab Sacubitril/Valsartan [Entresto 24 mg-26 mg Tablet] 1 each PO BID #60 tab Midodrine [ProAmatine] 5 mg PO AC-TID PRN #90 tab PRN Reason: SBP <100 Metoprolol Succinate (ER) [Toprol XL] 12.5 mg PO HS #30 tab Continue Simvastatin [Zocor] 20 mg PO HS Omeprazole 20 mg PO DAILY allopurinoL [Zyloprim] 300 mg PO DAILY Apixaban [Eliquis] 5 mg PO BID Fluticasone/Umeclidin/Vilanter [Trelegy Ellipta 100-62.5-25] 1 puff IN HALATION RT-DAILY Ferrous Sulfate [Iron (65 MG Elemental)] 325 mg PO DAILY Tamsulosin HCl [Flomax] 0.4 mg PO HS Albuterol Sulfate [Proair Hfa] 2 puff INHALATION RT-Q6H PRN PRN Reason: Shortness Of Breath Discontinued Sacubitril/Valsartan [Entresto 49 mg-51 mg Tablet] 1 tab PO BID Spironolactone [Aldactone] 25 mg PO DAILY Nabumetone 500 mg PO BID PRN PRN Reason: arthritis Torsemide [Demadex] 60 mg PO BID@0800,1600 metOLazone 2.5 mg PO Q2D PRN PRN Reason: Edema Metoprolol Succinate (ER) [Toprol XL] 25 mg PO HS 30 Days #30 tab Discharge Medication List Omeprazole 20 mg PO DAILY 01/29/18 [History] Simvastatin [Zocor] 20 mg PO HS 01/29/18 [History] allopurinoL [Zyloprim] 300 mg PO DAILY 01/29/18 [History] Apixaban [Eliquis] 5 mg PO BID 06/15/20 [History] Albuterol Sulfate [Proair Hfa] 2 puff INHALATION RT-Q6H PRN 01/13/22 [History] Fluticasone/Umeclidin/Vilanter [Trelegy Ellipta 100-62.5-25] 1 puff INHALATION RT-DAILY 01/13/22 [History] Tamsulosin HCl [Flomax] 0.4 mg PO HS 01/13/22 [History] Ferrous Sulfate [Iron (65 MG Elemental)] 325 mg PO DAILY 10/30/23 [History] Bumetanide [BUMEX] 1 mg PO DAILY #30 tab 11/10/23 [Rx] Metoprolol Succinate (ER) [Toprol XL] 12.5 mg PO HS #30 tab 11/10/23 [Rx] Midodrine [ProAmatine] 5 mg PO AC-TID PRN #90 tab 11/10/23 [Rx] Sacubitril/Valsartan [Entresto 24 mg-26 mg Tablet] 1 each PO BID #60 tab 11/10/23 [Rx] Follow up Appointment(s)/Referral(s): Brett Reid MD [STAFF PHYSICIAN] - 11/22/23 4:45 pm Karthikeyan Xiong DPM [REFERRING] - 1 Week (please call for your appointment) Mago Reeder DO [Primary Care Provider] - 11/14/23 11:00 am ([facility] [NON-STAFF] - 1-2 Days Aquiles Gomez DO [STAFF PHYSICIAN] - 11/20/23 10:20 am (Please call on Monday to set up appointment) [facility] Vis[facility] Nurse, [NON-STAFF] - Ambulatory/Diagnostic Orders: Basic Metabolic Panel [LAB.AMB] Time Frame: 3 Days, Location: None Selected Magnesium [LAB.AMB] Location: None Selected Patient Instructions/Handouts: Heart Failure (DC) Activity/Diet/Wound Care/Special Instructions: Continue on 1500 mL fluid restriction or 30-40 fluid ounces per 24 hours Follow a low-salt diet Continue on oxygen support Recommend to monitor weight daily and keep log for f/u with providers. Notify physician if more than 3 lbs of weight gained in a 1 week duration Repeat labs in 2 to 3 days Follow up with your delivery room clerk Continue using metahoney on the leg ulcerations and follow up with [facility]. Discharge Disposition: HOME WITH HOME HEALTH SERVICES
== END 2023-11-10 13:56 | disposition home health service (06) | DRG 291 ==
LOC: EC 13:24 → 3SCARD 16:16
PROVIDERS: ADMIT Hospitalist; ATTEND Hospitalist
PROC: 3E033XZ Introduction of Vasopressor into Peripheral Vein, Percutaneous Approach (ICD-10-PCS; principal; 2023-11-05)
DX: I13.0 Hypertensive heart and chronic kidney disease with heart failure and stage 1 through stage 4 chronic kidney disease, or unspecified chronic kidney disease (principal); I50.23 Acute on chronic systolic (congestive) heart failure; J96.21 Acute and chronic respiratory failure with hypoxia; N17.0 Acute kidney failure with tubular necrosis; I47.20 Ventricular tachycardia, unspecified; J44.1 Chronic obstructive pulmonary disease with (acute) exacerbation; L97.909 Non-pressure chronic ulcer of unspecified part of unspecified lower leg with unspecified severity; I48.20 Chronic atrial fibrillation, unspecified; R18.8 Other ascites; R04.2 Hemoptysis; I27.22 Pulmonary hypertension due to left heart disease; D69.6 Thrombocytopenia, unspecified; J84.89 Other specified interstitial pulmonary diseases; K74.60 Unspecified cirrhosis of liver; I42.8 Other cardiomyopathies; N18.31 Chronic kidney disease, stage 3a; J43.9 Emphysema, unspecified; I48.0 Paroxysmal atrial fibrillation; I95.9 Hypotension, unspecified; E66.9 Obesity, unspecified; I08.3 Combined rheumatic disorders of mitral, aortic and tricuspid valves; N14.0 Analgesic nephropathy; T39.395A Adverse effect of other nonsteroidal anti-inflammatory drugs [NSAID], initial encounter; Z99.81 Dependence on supplemental oxygen; Z79.01 Long term (current) use of anticoagulants; Z68.31 Body mass index [BMI] 31.0-31.9, adult; K21.9 Gastro-esophageal reflux disease without esophagitis; E78.5 Hyperlipidemia, unspecified; M10.9 Gout, unspecified; M19.90 Unspecified osteoarthritis, unspecified site; R04.0 Epistaxis; I87.8 Other specified disorders of veins; I49.3 Ventricular premature depolarization; I25.10 Atherosclerotic heart disease of native coronary artery without angina pectoris; R16.1 Splenomegaly, not elsewhere classified; Z96.642 Presence of left artificial hip joint; Z11.52 Encounter for screening for COVID-19; Z95.810 Presence of automatic (implantable) cardiac defibrillator; Z82.49 Family history of ischemic heart disease and other diseases of the circulatory system; Z87.891 Personal history of nicotine dependence; Z79.899 Other long term (current) drug therapy; Z79.51 Long term (current) use of inhaled steroids; Z79.1 Long term (current) use of non-steroidal anti-inflammatories (NSAID)
CPT/HCPCS: 36415; 71045; 71046; 71250; 76770; 80048; 80053; 81003; 83036; 83605; 83735; 83880; 84145; 84484; 85025; 85379; 85610; 85652; 85730; 86140; 86850; 86900; 86901; 87040; 87070; 87205; 87636; 93005; 93306; 94640; 94760; 96365; 96366; 96368; 96375; 96376; 99285

== ENCOUNTER 2024-02-21 10:31 | Emergency (ER) | payer MEDICARE ==
[2024-02-21 10:44] VITALS: RESP 18
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
--- NOTE | 2024-02-21 12:31 | CT ---
COMPARISON: EXAMINATION TYPE: CT brain cristino wo con DATE OF EXAM: 02/21/2024 COMPARISON: 05/12/2022 HISTORY: FALL ON ELIQUIS. CT DLP: 1629 mGycm, Automated exposure control for dose reduction was used. CONTRAST: Patient injected with 0 mL of Isovue 300. CT of the brain is performed utilizing 3 mm thick sections through the posterior fossa and 3 mm thick sections through the remaining calvarium. Study is performed within 24 hours of arrival to the hospital. No abnormal hyperdensity is present to suggest an acute intracranial hemorrhage. No mass lesion is evident. No acute infarcts are evident. Ventricles and sulci are prominent for the patient age. Paranasal sinuses and mastoid air cells within the [id number] are clear. IMPRESSIONS: 1. Atrophy. 2. No acute intracranial process. Follow-up MRI can be performed as clinically indicated CT cervical spine. COMPARISON: None CT of the cervical spine is performed in the axial plane at 2 mm thick sections. Reconstructed image s in the coronal, and sagittal plane are reviewed on the computer. No acute fractures are evident. Vertebral body alignment is normal. Degenerative disc changes are present greatest C5-6 C6-7. Vertebral body heights are preserved. No spinal canal stenosis is evident. Foraminal stenosis is present due to uncovertebral joint hypertrophy C5-6 greater on the right. Mild foraminal narrowing is present C6-7. IMPRESSION: 1. No acute osseous abnormalities cervical spine. 2. Chronic degenerative disc changes and some foraminal stenosis mid and lower cervical spine.
[2024-02-21 14:18] VITALS: BP 105/67; PULSE 69; TEMP 98.2
== END 2024-02-21 14:49 | disposition home or self-care (01) ==
LOC: EC 10:31
DX: S51.812A Laceration without foreign body of left forearm, initial encounter (principal); S51.011A Laceration without foreign body of right elbow, initial encounter; Z87.891 Personal history of nicotine dependence; W50.0XXA Accidental hit or strike by another person, initial encounter
CPT/HCPCS: 70450; 72125; 99284

== ENCOUNTER 2024-03-01 00:28 | Inpatient (IN) | payer MEDICARE ==
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
[2024-03-01] MEDS: methylPREDNISolone SOD SUCCI 125 MG/2 ML VIAL IV STA (01:17)
[2024-03-01] MEDS: IPRATROPIUM-ALBUTEROL 3 ML NEB INHALATION STA (01:25)
[2024-03-01 01:30] LABS: INR 1.4 (<1.2); Partial Thromboplastin Time 29.8 sec (22.0-30.0); Prothrombin Time 14.5 sec (10.0-12.5)
[2024-03-01 01:32] LABS: ALT 9 U/L (4-49); AST 26 U/L (17-59); African American GFR (CKD) 29 (>60 ml/min/1.73 sqM); Albumin 4.2 g/dL (3.5-5.0); Alkaline Phosphatase 119 U/L (38-126); Anion Gap 13 mmol/L; Calcium 8.9 mg/dL (8.4-10.2); Carbon Dioxide 22 mmol/L (22-30); Chloride 99 mmol/L (98-107); Glucose 140 mg/dL (74-99); Magnesium 1.7 mg/dL (1.6-2.3); Non-African American GFR(CKD) 25 (>60 ml/min/1.73 sqM); Potassium 5.1 mmol/L (3.5-5.1); Sodium 134 mmol/L (137-145); Total Bilirubin 1.2 mg/dL (0.2-1.3); Total Protein 7.1 g/dL (6.3-8.2)
[2024-03-01 01:39] LABS: Anisocytosis Slight; Basophils % (A) 0 %; Eosinophils # (A) 0.1 k/uL (0-0.7); Eosinophils % (A) 0 %; HCT 30.2 % (39.0-53.0); HGB 9.1 gm/dL (13.0-17.5); Hypochromasia Marked; Lymphocytes # (A) 0.5 k/uL (1.0-4.8); Lymphocytes % (A) 4 %; MCH 28.2 pg (25.0-35.0); MCHC 30.1 g/dL (31.0-37.0); MCV 93.7 fL (80.0-100.0); Macrocytosis Slight; Mean Platelet Volume 9.8; Monocytes # (A) 0.5 k/uL (0-1.0); Monocytes % (A) 4 %; Neutrophils # (A) 11.3 k/uL (1.3-7.7); Neutrophils % (A) 90 %; Platelet Count 134 k/uL (150-450); RBC 3.23 m/uL (4.30-5.90); RDW 18.1 % (11.5-15.5); WBC 12.5 k/uL (3.8-10.6)
[2024-03-01 01:40] LABS: NT-Pro-B-Type Natriuretic Pept 18300 pg/mL
[2024-03-01 02:00] LABS: Blood Urea Nitrogen 108 mg/dL (9-20)
[2024-03-01] MEDS ORDERED: ONDANSETRON 4 MG/2 ML VIAL IVP PRN (02:52)
[2024-03-01] MEDS ORDERED: NALOXONE 0.4 MG/ML 1 ML VIAL IV PRN (02:52)
[2024-03-01] MEDS ORDERED: MORPHINE SULFATE 4 MG/ML SYRINGE IV PRN (02:52)
[2024-03-01] MEDS: HYDROmorphone 1 MG/ML 1 ML SYRINGE IVP STA (03:02)
--- NOTE | 2024-03-01 03:05 | XR ---
EXAM: XR Chest, 1 View CLINICAL HISTORY: sob TECHNIQUE: Frontal view of the chest. COMPARISON: 11/07/2023. FINDINGS: Apical lordotic view. Left subclavian single lead pacemaker with AICD. Marked cardiomegaly. Elevated right hemidiaphragm. Increased CHF. No pleural effusion or pneumothorax. Bones are unchanged. IMPRESSION: Marked cardiomegaly. Increased CHF. Elevated right hemidiaphragm versus projection.
[2024-03-01] MEDS: SODIUM CHLORIDE 0.9% 1,000 ML IV SCH (03:07)
[2024-03-01] MEDS ORDERED: IPRATROPIUM-ALBUTEROL 3 ML NEB INHALATION PRN (03:59)
[2024-03-01] MEDS: IPRATROPIUM-ALBUTEROL 3 ML NEB INHALATION SCH (07:58)
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
[2024-03-01] MEDS: FUROSEMIDE 10 MG/ML 4 ML VIAL IV SCH (12:10)
[2024-03-01] MEDS: allopurinoL 300 MG TAB PO SCH (12:10)
[2024-03-01] MEDS: methylPREDNISolone SOD SUCCI 40 MG/ML 1 ML VIAL IV SCH (12:10)
--- NOTE | 2024-03-01 13:59 | US ---
EXAMINATION TYPE: US kidneys/renal and bladder DATE OF EXAM: 03/01/2024 COMPARISON: 11/04/2023 CLINICAL INDICATION: Male, 78 years old with history of jesse; EXAM MEASUREMENTS: Right Kidney: 9.7 x 5.2 x 5.0 cm Left Kidney: 9.9 x 4.8 x 4.5 cm Right Kidney: no hydronephrosis, nephrolithiasis or masses seen Left Kidney: 3.8cm cyst inferior pole no hydronephrosis or nephrolithiasis. Bladder: not distended, dubois catheter which limits assessment. Abdominal ascites Enlarged spleen IMPRESSION: 1. No hydronephrosis or nephrolithiasis. 2. Small amount of ascites. 3. Splenomegaly.
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
[2024-03-01 22:25] LABS: % Iron Saturation 9.55 (15.00-50.00)
[2024-03-01] MEDS: METOPROLOL SUCCINATE (ER) 25 MG TAB.ER.24H PO SCH (23:01)
[2024-03-01] MEDS: APIXABAN 5 MG TAB PO SCH (23:01)
[2024-03-01] MEDS: MELATONIN 5 MG TABLET PO PRN (23:01)
[2024-03-01] MEDS: TAMSULOSIN 0.4 MG CAP.ER.24H PO SCH (23:02)
[2024-03-01] MEDS: ATORVASTATIN 10 MG TAB PO SCH (23:02)
[2024-03-01] MEDS: HYDROmorphone 0.5 MG/0.5 ML SYRINGE IVP PRN (23:03)
[2024-03-02] MEDS: PANTOPRAZOLE 40 MG TABLET PO SCH ×2 (06:35→12:24)
[2024-03-02 09:12] LABS: Anisocytosis Slight; Basophils % (A) 0 %; Eosinophils # (A) 0.1 k/uL (0-0.7); Eosinophils % (A) 1 %; HCT 26.1 % (39.0-53.0); HGB 7.8 gm/dL (13.0-17.5); Hypochromasia Marked; Lymphocytes # (A) 0.4 k/uL (1.0-4.8); Lymphocytes % (A) 5 %; MCHC 29.8 g/dL (31.0-37.0); MCV 93.9 fL (80.0-100.0); Mean Platelet Volume 9.6; Monocytes # (A) 0.3 k/uL (0-1.0); Monocytes % (A) 4 %; Neutrophils # (A) 7.1 k/uL (1.3-7.7); Neutrophils % (A) 89 %; Platelet Count 105 k/uL (150-450); RBC 2.78 m/uL (4.30-5.90); RDW 17.8 % (11.5-15.5)
[2024-03-02] MEDS: FERROUS SULFATE 325 MG TAB PO SCH (09:15)
[2024-03-02 09:35] LABS: ALT 10 U/L (4-49); AST 19 U/L (17-59); African American GFR (CKD) 29 (>60 ml/min/1.73 sqM); Albumin 3.7 g/dL (3.5-5.0); Alkaline Phosphatase 96 U/L (38-126); Anion Gap 13 mmol/L; Calcium 8.8 mg/dL (8.4-10.2); Carbon Dioxide 21 mmol/L (22-30); Chloride 100 mmol/L (98-107); Glucose 132 mg/dL (74-99); Magnesium 1.7 mg/dL (1.6-2.3); Non-African American GFR(CKD) 25 (>60 ml/min/1.73 sqM); Phosphorus 4.4 mg/dL (2.5-4.5); Potassium 5.1 mmol/L (3.5-5.1); Sodium 134 mmol/L (137-145); Total Protein 6.4 g/dL (6.3-8.2)
[2024-03-02 09:40] LABS: Blood Urea Nitrogen 111 mg/dL (9-20)
[2024-03-02 11:30] LABS: Anisocytosis Slight; HCT 26.1 % (39.0-53.0); HGB 7.6 gm/dL (13.0-17.5); Hypochromasia Marked; MCH 27.9 pg (25.0-35.0); MCHC 29.1 g/dL (31.0-37.0); MCV 95.9 fL (80.0-100.0); Macrocytosis Slight; Mean Platelet Volume 9.5; RBC 2.72 m/uL (4.30-5.90); RDW 18.1 % (11.5-15.5); WBC 8.5 k/uL (3.8-10.6)
[2024-03-02 12:07] LABS: Platelet Count 99 k/uL (150-450)
--- NOTE | 2024-03-02 13:18 | P.PN ---
Subjective Progress Note Date: 03/02/24 Patient seen in follow-up for JAC on CKD. OVerall doing better and swelling is improving. Concerned about some of the sediment in his Dubois catheter and has some pain when urinating. Vital signs are stable. General: No acute distress. HEENT: Head exam is unremarkable. On nasal cannula. LUNGS: No audible rhonchi or wheezes. HEART: Rate and Rhythm are regular. ABDOMEN: Nontender. EXTREMITITES: Chronic changes noted. 1+ edema. Objective - Vital Signs Vital signs: Vital Signs Temp 97.8 F 03/02/24 04:00 Pulse 60 03/02/24 08:31 Resp 18 03/02/24 04:00 BP 124/71 03/02/24 04:00 Pulse Ox 96 03/02/24 08:18 FiO2 Intake & Output 03/01/24 03/02/24 03/02/24 18:59 06:59 18:59 Intake Total 180 Output Total 475 425 300 Balance -475 -425 -120 Weight 113.5 kg 113.5 kg Intake: Oral 180 Output: Urine 475 425 300 - Labs CBC & Chem 7: 03/02/24 10:50 03/02/24 08:30 Labs: Abnormal Lab Results - Last 24 Hours (Table) 03/01/24 03/02/24 03/02/24 Range/Units 01:05 08:30 08:30 RBC 2.78 L (4.30-5.90) m/uL Hgb 7.8 L (13.0-17.5) gm/dL Hct 26.1 L (39.0-53.0) % MCHC 29.8 L (31.0-37.0) g/dL RDW 17.8 H (11.5-15.5) % Plt Count 105 L (150-450) k/uL Lymphocytes # 0.4 L (1.0-4.8) k/uL Sodium 134 L (137-145) mmol/L Carbon Dioxide 21 L (22-30) mmol/L BUN 111 H* (9-20) mg/dL Creatinine 2.41 H (0.66-1.25) mg/dL Glucose 132 H (74-99) mg/dL Iron 36 L (65-175) UG/DL % Saturation 9.55 L (15.00-50.00) Assessment and Plan Plan: Assessment: 1. Acute kidney injury secondary to ATN secondary to cardiorenal syndrome. Creatinine stable at 2.41. BUN out of proportion to creatinine due to IV Steroids. Renal US no hydronephrosis. 2. Chronic kidney disease stage IIIb with baseline creatinine 1.3-1.5 secondary to nephrosclerosis. 3. Acute on chronic systolic CHF ejection fraction of 30 to 35% with mild to moderate mitral and tricuspid regurgitation and moderate pulmonary hypertension. Status post AICD. 4. Fluid overload. 5. Anemia of chronic kidney disease. Rule out iron deficiency. Plan: IV Lasix 40 mg twice daily. Low-salt diet and 1500 cc fluid restriction. Maintain dubois for now Avoid nephrotoxins. Continue to monitor renal function and urine output. BUN elevated due to steroids.
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
--- NOTE | 2024-03-02 15:25 | P.PN ---
Subjective Progress Note Date: 03/02/24 78-year-old male to the ER for evaluation of severe weakness dyspnea shortness of breath left leg pain severe debility and overall weakness and shortness of breath. Symptoms have progressed significantly throughout the day as he feels fevers and chills admitted complaining of leg pain and redness -- Patient also reports shortness of breath and reporting it as an asthma attack with cough productive of yellow phlegm Blood work completed in ED reveals a WBC of 12.5, hemoglobin of 9.1 and platelet count of 134, sodium 134, potassium 5.1, BUNs/creatinine 108/2.43 and blood glucose of 140, troponin of 0.037 Patient reports marked improvement in breathing; denies any chest pain -Vital signs reviewed and are stable Lab review reveals a drop in hemoglobin from 9.1 yesterday down to 7.8; we will monitor H&H closely; order stool occult blood; Protonix 40 mg twice daily Objective - Vital Signs Vital signs: Vital Signs Temp 98 F 03/02/24 08:30 Pulse 60 03/02/24 08:31 Resp 18 03/02/24 08:30 BP 100/88 03/02/24 08:30 Pulse Ox 98 03/02/24 08:30 FiO2 Intake & Output 03/01/24 03/02/24 03/02/24 18:59 06:59 18:59 Intake Total 180 Output Total 475 425 300 Balance -475 -425 -120 Weight 113.5 kg 113.5 kg Intake: Oral 180 Output: Urine 475 425 300 Other: Voiding Method Indwelling Catheter - Exam Head exam: Present: atraumatic, normocephalic, normal inspection Eye exam: Present: normal appearance, PERRL, EOMI. Absent: scleral icterus, conjunctival injection, periorbital swelling ENT exam: Present: normal exam, mucous membranes moist Neck exam: Present: normal inspection. Absent: tenderness, meningismus, lymphadenopathy Respiratory exam: Present: respiratory distress, wheezes, accessory muscle use, decreased breath sounds, prolonged expiratory. Absent: rales, rhonchi, stridor Cardiovascular Exam: Present: tachycardia, irregular rhythm, normal heart sounds. Absent: systolic murmur, diastolic murmur, rubs, gallop, clicks GI/Abdominal exam: Present: soft, normal bowel sounds. Absent: distended, tenderness, guarding, rebound, rigid Extremities exam: Present: normal inspection, full ROM, normal capillary refill. Absent: tenderness, pedal edema, joint swelling, calf tenderness Neurological exam: Present: alert, oriented X3, CN II-XII intact Skin exam: Present: warm, dry, intact, normal color. Absent: rash - Labs CBC & Chem 7: 03/02/24 10:50 03/02/24 08:30 Labs: Abnormal Lab Results - Last 24 Hours (Table) 03/01/24 03/02/24 03/02/24 Range/Units 01:05 08:30 08:30 RBC 2.78 L (4.30-5.90) m/uL Hgb 7.8 L (13.0-17.5) gm/dL Hct 26.1 L (39.0-53.0) % MCHC 29.8 L (31.0-37.0) g/dL RDW 17.8 H (11.5-15.5) % Plt Count 105 L (150-450) k/uL Lymphocytes # 0.4 L (1.0-4.8) k/uL Sodium 134 L (137-145) mmol/L Carbon Dioxide 21 L (22-30) mmol/L BUN 111 H* (9-20) mg/dL Creatinine 2.41 H (0.66-1.25) mg/dL Glucose 132 H (74-99) mg/dL Iron 36 L (65-175) UG/DL % Saturation 9.55 L (15.00-50.00) Assessment and Plan Assessment: 1. Acute on chronic kidney disease stage III; likely ATN secondary to c ardiorenal syndrome --Patient has a baseline creatinine of 1.3-1.5; currently creatinine is up to 2. 43 2. Acute on chronic systolic CHF -- Last echocardiogram completed reveals a EF of 30 to 35% with mild to moderate mitral and tricuspid regurgitation and moderate pulmonary hypertension; patient is status post AICD -- Lasix 40 mg IV every 12 hours -Monitor strict SEFERINO's, daily weights, renal function and electrolytes; low-salt fluid restricted diet 3. Acute exacerbation COPD; methylprednisone 40 mg IV every 8 hours; DuoNeb nebulizer treatments 4 times daily and as needed 4. Cellulitis left lower extremity; patient has been placed on Rocephin 1 g IV daily; will monitor CBC, CRP and procalcitonin 5. Elevated troponin; likely demand ischemia due to fluid overload and hypoxia; will trend troponin 6. Hypertension; metoprolol 12.5 mg nightly 7. Hyperlipidemia; Lipitor 10 mg p.o. nightly 8. Paroxysmal atrial fibrillation; Eliquis 5 mg twice daily; metoprolol 12.5 mg daily DVT prophylaxis; SCDs/Eliquis
[2024-03-03 10:29] LABS: African American GFR (CKD) 27 (>60 ml/min/1.73 sqM); Anion Gap 11 mmol/L; Carbon Dioxide 24 mmol/L (22-30); Chloride 99 mmol/L (98-107); Glucose 137 mg/dL (74-99); Non-African American GFR(CKD) 23 (>60 ml/min/1.73 sqM); Potassium 5.2 mmol/L (3.5-5.1); Sodium 134 mmol/L (137-145)
[2024-03-03] MEDS: metOLazone 2.5 MG TAB PO SCH (10:30)
[2024-03-03] MEDS: FUROSEMIDE 10 MG/ML 4 ML VIAL IV STA (10:31)
[2024-03-03 10:34] LABS: Blood Urea Nitrogen 117 mg/dL (9-20)
--- NOTE | 2024-03-03 11:19 | P.PN ---
Subjective Progress Note Date: 03/03/24 Consult reason: congestive heart failure History of present illness: HPI This is a 78-year-old male patient of Dr. Reid with a past medical history significant for coronary artery disease, nonischemic cardiomyopathy, AICD implantation, persistent atrial fibrillation, hypertension, hyperlipidemia, valvular heart disease. We have been asked to see the patient in consultation for congestive heart failure. Patient states he presented to the hospital with complaint of shortness of breath in that he could not catch his breath. He also had lower extremity edema and pain in the legs and ankles and shakiness. His states that he had redness and swelling in the lower extremities. He denies having any chest pain or pressure. He also had recent fall with abrasions to arms and back that caused ER visit and was sent home. The patient has been started on IV Lasix 40 mg every 12 hours by nephrology. He has also been started on IV steroids, and IV antibiotics per primary medicine. Vital signs are stable. EKG reveals atrial fibrillation with controlled ventricular rate. PVCs. Chest xray: Marked cardiomegaly. Increased CHF. Elevated right diaphragm. Renal ultrasound reveals no hydronephrosis or nephrolithiasis. Small amount of ascites. Splenomegaly. Laboratory studies: WBC 8.5, hemoglobin 7.6, platelet count 99. Sodium 134, potassium 5.1, BUN 111 and creatinine 2.41. Glucose 132. Troponin 0.037 and 0.051. Home cardiac medications: Eliquis 5 mg twice daily, Bumex 1 mg daily, ferrous sulfate 325 mg daily, metolazone 2.5 mg every 2 days, Toprol-XL 12.5 mg at bedtime, Entresto 24 mg - 26 mg 1 tablet twice daily, simvastatin 20 mg at bedtime. Most recent echocardiogram performed 11/03/2023 reveals EF of 30 to 35%, improved from 20-25%, mild to moderate MR, mild to moderate TR, moderate pulmonary hypertension Cardiac catheterization history: January 2018 with 50% lesion in the mid LAD 03/03 Patient is seen today in follow-up. He states he is had large bowel movements but denies any blood in his stools. Entresto and metolazone has been on hold due to hypotension. Blood pressure running between 99/54 and 114/68. Heart rate 77, pulse ox 99% on 3 L nasal cannula. Repeat blood work reveals sodium 134, potassium 5.2, BUN 117 creatinine 2.59. SEFERINO's and weights do not appear accurate. Patient has been on IV Lasix 40 mg every 12 hours. PHYSICAL EXAM: VITAL SIGNS: Reviewed. GENERAL: Well-developed in no acute distress. HEENT: Head is normocephalic. Pupils are equal, round. Sclerae anicteric. Mucous membranes of the mouth are moist. Neck supple. No JVD or thyromegaly LUNGS: Respirations even and unlabored. Lungs diminished with bibasilar crackles HEART: Irregular rate and rhythm. S1 and S2 heard. ABDOMEN: Soft. Nondistended. Nontender. EXTREMITIES: No clubbing or cyanosis. Peripheral pulses intact. 2+ bilateral pitting lower extremity edema NEUROLOGIC: Awake and alert. Oriented x 3. ASSESSMENT: Shortness of breath Acute on chronic heart failure with reduced ejection fraction, 20-25%, now 30 to 35% Nonischemic cardiomyopathy History of AICD implantation No obstructive coronary artery disease with 50% lesion in the mid LAD Persistent atrial fibrillation History of COPD Hypertension Hyperlipidemia Valvular heart disease Bicytopenia with anemia and thrombocytopenia PLAN: No need to repeat echocardiogram at this time Continue current cardiac medications Increase IV Lasix to 80 mg every 12 hours and add metolazone 2.5 mg daily Daily weights, accurate I&O, and monitoring of kidney function Further recommendations pending patient's course Nurse practitioner note has been reviewed by physician. Signing provider agrees with the documented findings, assessment, and plan of care. Objective - Vital Signs Vital signs: Vital Signs Temp 98.2 F 03/03/24 00:00 Pulse 62 03/03/24 04:00 Resp 18 03/03/24 04:00 BP 99/54 03/03/24 04:00 Pulse Ox 99 03/03/24 08:18 FiO2 Intake & Output 03/02/24 03/03/24 03/03/24 18:59 06:59 18:59 Intake Total 420 237 Output Total 300 350 Balance 120 -113 Weight 113.5 kg Intake: Oral 420 237 Output: Urine 300 350 Other: Voiding Method Indwelling Catheter Indwelling Catheter # Bowel Movements 1 - Labs CBC & Chem 7: 03/02/24 10:50 03/03/24 09:09 Labs: Abnormal Lab Results - Last 24 Hours (Table) 03/02/24 03/02/24 03/02/24 Range/Units 08:30 08:30 10:50 RBC 2.78 L 2.72 L (4.30-5.90) m/uL Hgb 7.8 L 7.6 L (13.0-17.5) gm/dL Hct 26.1 L 26.1 L (39.0-53.0) % MCHC 29.8 L 29.1 L (31.0-37.0) g/dL RDW 17.8 H 18.1 H (11.5-15.5) % Plt Count 105 L 99 L (150-450) k/uL Lymphocytes # 0.4 L (1.0-4.8) k/uL Sodium 134 L (137-145) mmol/L Carbon Dioxide 21 L (22-30) mmol/L BUN 111 H* (9-20) mg/dL Creatinine 2.41 H (0.66-1.25) mg/dL Glucose 132 H (74-99) mg/dL Troponin I (0.000-0.034) ng/mL 03/02/24 Range/Units 10:50 RBC (4.30-5.90) m/uL Hgb (13.0-17.5) gm/dL Hct (39.0-53.0) % MCHC (31.0-37.0) g/dL RDW (11.5-15.5) % Plt Count (150-450) k/uL Lymphocytes # (1.0-4.8) k/uL Sodium (137-145) mmol/L Carbon Dioxide (22-30) mmol/L BUN (9-20) mg/dL Creatinine (0.66-1.25) mg/dL Glucose (74-99) mg/dL Troponin I 0.051 H* (0.000-0.034) ng/mL
--- NOTE | 2024-03-03 11:59 | P.PN ---
Subjective Progress Note Date: 03/03/24 Patient seen in follow-up for JAC on CKD. OVerall doing better and swelling is improving. No new complaints. Vital signs are stable. General: No acute distress. HEENT: Head exam is unremarkable. On nasal cannula. LUNGS: No audible rhonchi or wheezes. HEART: Rate and Rhythm are regular. ABDOMEN: Nontender. EXTREMITITES: Chronic changes noted. 1+ edema. Objective - Vital Signs Vital signs: Vital Signs Temp 97.8 F 03/03/24 08:20 Pulse 77 03/03/24 08:20 Resp 18 03/03/24 08:20 BP 114/68 03/03/24 08:20 Pulse Ox 99 03/03/24 08:20 FiO2 Intake & Output 03/02/24 03/03/24 03/03/24 18:59 06:59 18:59 Intake Total 420 237 240 Output Total 300 350 Balance 120 -113 240 Weight 113.5 kg Intake: Oral 420 237 240 Output: Urine 300 350 Other: Voiding Method Indwelling Catheter Indwelling Catheter Indwelling Catheter # Bowel Movements 1 0 - Labs CBC & Chem 7: 03/02/24 10:50 03/02/24 08:30 Labs: Abnormal Lab Results - Last 24 Hours (Table) 03/02/24 03/02/24 Range/Units 10:50 10:50 RBC 2.72 L (4.30-5.90) m/uL Hgb 7.6 L (13.0-17.5) gm/dL Hct 26.1 L (39.0-53.0) % MCHC 29.1 L (31.0-37.0) g/dL RDW 18.1 H (11.5-15.5) % Plt Count 99 L (150-450) k/uL Troponin I 0.051 H* (0.000-0.034) ng/mL Assessment and Plan Plan: Assessment: 1. Acute kidney injury secondary to ATN secondary to cardiorenal syndrome. Creatinine stable at 2.41. BUN out of proportion to creatinine due to IV Steroids. Renal US no hydronephrosis. 2. Chronic kidney disease stage IIIb with baseline creatinine 1.3-1.5 secondary to nephrosclerosis. 3. Acute on chronic systolic CHF ejection fraction of 30 to 35% with mild to moderate mitral and tricuspid regurgitation and moderate pulmonary hypertension. Status post AICD. 4. Fluid overload. 5. Anemia of chronic kidney disease. Rule out iron deficiency. Plan: IV Lasix increased 80 mg twice daily with addition of metolazone. Monitor closely for worsening hyponatremia on Metolazone. Low-salt diet and 1500 cc fluid restriction. Maintain dubois for now Avoid nephrotoxins. Continue to monitor renal function and urine output. BUN elevated due to steroids.
--- NOTE | 2024-03-03 17:36 | P.PN ---
Subjective Progress Note Date: 03/03/24 78-year-old male to the ER for evaluation of severe weakness dyspnea shortness of breath left leg pain severe debility and overall weakness and shortness of breath. Symptoms have progressed significantly throughout the day as he feels fevers and chills admitted complaining of leg pain and redness -- Patient also reports shortness of breath and reporting it as an asthma attack with cough productive of yellow phlegm Blood work completed in ED reveals a WBC of 12.5, hemoglobin of 9.1 and platelet count of 134, sodium 134, potassium 5.1, BUNs/creatinine 108/2.43 and blood glucose of 140, troponin of 0.037 Patient reports marked improvement in breathing; denies any chest pain -Vital signs reviewed and are stable Lab review reveals a drop in hemoglobin from 9.1 yesterday down to 7.8; we will monitor H&H closely; order stool occult blood; Protonix 40 mg twice daily 03/03/2024 Patient is seen and evaluated in room at bedside; denies overall complaints and reports improved breathing Vital signs are reviewed, temperature 98.2, pulse 62, respiration 18 and blood pressure of 99/54; -Cardiology on board and recommending to continue to hold Entresto and metolazone due to hypotension - Repeat blood work reveals sodium 134, potassium 5.2, BUN 117 creatinine 2.59. SEFERINO's and weights do not appear accurate. Patient has been on IV Lasix 40 mg every 12 hours. Cardiology recommending to increase Lasix to 80 mg every 12 hours and add metolazone 2.5 mg daily due to persistent fluid overload -- Hemoglobin dropped down from 9.1-7.8 this morning; we will continue with Protonix 40 mg twice daily and monitor H&H closely with stool occult blood Objective - Vital Signs Vital signs: Vital Signs Temp 97.8 F 03/03/24 08:20 Pulse 77 03/03/24 08:20 Resp 18 03/03/24 08:20 BP 114/68 03/03/24 08:20 Pulse Ox 99 03/03/24 08:20 FiO2 Intake & Output 03/02/24 03/03/24 03/03/24 18:59 06:59 18:59 Intake Total 420 237 240 Output Total 300 350 Balance 120 -113 240 Weight 113.5 kg Intake: Oral 420 237 240 Output: Urine 300 350 Other: Voiding Method Indwelling Catheter Indwelling Catheter Indwelling Catheter # Bowel Movements 1 0 - Exam Head exam: Present: atraumatic, normocephalic, normal inspection Eye exam: Present: normal appearance, PERRL, EOMI. Absent: scleral icterus, conjunctival injection, periorbital swelling ENT exam: Present: normal exam, mucous membranes moist Neck exam: Present: normal inspection. Absent: tenderness, meningismus, lymphadenopathy Respiratory exam: Present: respiratory distress, wheezes, accessory muscle use, decreased breath sounds, prolonged expiratory. Absent: rales, rhonchi, stridor Cardiovascular Exam: Present: tachycardia, irregular rhythm, normal heart sounds. Absent: systolic murmur, diastolic murmur, rubs, gallop, clicks GI/Abdominal exam: Present: soft, normal bowel sounds. Absent: distended, tenderness, guarding, rebound, rigid Extremities exam: Present: normal inspection, full ROM, normal capillary refill. Absent: tenderness, pedal edema, joint swelling, calf tenderness Neurological exam: Present: alert, oriented X3, CN II-XII intact Skin exam: Present: warm, dry, intact, normal color. Absent: rash - Labs CBC & Chem 7: 03/02/24 10:50 03/03/24 09:09 Labs: Abnormal Lab Results - Last 24 Hours (Table) 03/02/24 03/02/24 03/03/24 Range/Units 10:50 10:50 09:09 RBC 2.72 L (4.30-5.90) m/uL Hgb 7.6 L (13.0-17.5) gm/dL Hct 26.1 L (39.0-53.0) % MCHC 29.1 L (31.0-37.0) g/dL RDW 18.1 H (11.5-15.5) % Plt Count 99 L (150-450) k/uL Sodium 134 L (137-145) mmol/L Potassium 5.2 H (3.5-5.1) mmol/L BUN 117 H* (9-20) mg/dL Creatinine 2.59 H (0.66-1.25) mg/dL Glucose 137 H (74-99) mg/dL Troponin I 0.051 H* (0.000-0.034) ng/mL Assessment and Plan Assessment: 1. Acute on chronic kidney disease stage III; likely ATN secondary to cardioren al syndrome --Patient has a baseline creatinine of 1.3-1.5; currently creatinine is up to 2.43 2. Acute on chronic systolic CHF -- Last echocardiogram completed reveals a EF of 30 to 35% with mild to moderate mitral and tricuspid regurgitation and moderate pulmonary hypertension; patient is status post AICD -- Lasix 40 mg IV every 12 hours -Monitor strict SEFERINO's, daily weights, renal function and electrolytes; low-salt fluid restricted diet 3. Acute exacerbation COPD; methylprednisone 40 mg IV every 8 hours; DuoNeb nebulizer treatments 4 times daily and as needed 4. Cellulitis left lower extremity; patient has been placed on Rocephin 1 g IV daily; will monitor CBC, CRP and procalcitonin 5. Elevated troponin; likely demand ischemia due to fluid overload and hypoxia; will trend troponin 6. Hypertension; metoprolol 12.5 mg nightly 7. Hyperlipidemia; Lipitor 10 mg p.o. nightly 8. Paroxysmal atrial fibrillation; Eliquis 5 mg twice daily; metoprolol 12.5 mg daily DVT prophylaxis; SCDs/Eliquis
[2024-03-03] MEDS: FUROSEMIDE 10 MG/ML 4 ML VIAL IV SCH (22:10)
[2024-03-04 08:47] LABS: Anisocytosis Slight; Basophils % (A) 0 %; Eosinophils % (A) 0 %; HCT 26.9 % (39.0-53.0); HGB 7.6 gm/dL (13.0-17.5); Hypochromasia Marked; Lymphocytes # (A) 0.2 k/uL (1.0-4.8); Lymphocytes % (A) 4 %; MCHC 28.2 g/dL (31.0-37.0); MCV 95.7 fL (80.0-100.0); Macrocytosis Slight; Mean Platelet Volume 11.5; Monocytes # (A) 0.2 k/uL (0-1.0); Monocytes % (A) 4 %; Neutrophils % (A) 91 %; RBC 2.81 m/uL (4.30-5.90); RDW 17.5 % (11.5-15.5); WBC 5.5 k/uL (3.8-10.6)
[2024-03-04 09:18] LABS: African American GFR (CKD) 27 (>60 ml/min/1.73 sqM); Anion Gap 13 mmol/L; Calcium 8.5 mg/dL (8.4-10.2); Carbon Dioxide 21 mmol/L (22-30); Chloride 100 mmol/L (98-107); Glucose 185 mg/dL (74-99); Non-African American GFR(CKD) 23 (>60 ml/min/1.73 sqM); Potassium 4.7 mmol/L (3.5-5.1); Sodium 134 mmol/L (137-145)
[2024-03-04 09:43] LABS: Blood Urea Nitrogen 126 mg/dL (9-20)
[2024-03-04 10:10] LABS: Large Platelets Present; Platelet Count 90 k/uL (150-450)
--- NOTE | 2024-03-04 10:20 | P.PN ---
Subjective 78-year-old male to the ER for evaluation of severe weakness dyspnea shortness of breath left leg pain severe debility and overall weakness and shortness of breath. Symptoms have progressed significantly throughout the day as he feels fevers and chills admitted complaining of leg pain and redness -- Patient also reports shortness of breath and reporting it as an asthma attack with cough productive of yellow phlegm Blood work completed in ED reveals a WBC of 12.5, hemoglobin of 9.1 and platelet count of 134, sodium 134, potassium 5.1, BUNs/creatinine 108/2.43 and blood glucose of 140, troponin of 0.037 Patient reports marked improvement in breathing; denies any chest pain -Vital signs reviewed and are stable Lab review reveals a drop in hemoglobin from 9.1 yesterday down to 7.8; we will monitor H&H closely; order stool occult blood; Protonix 40 mg twice daily 03/03/2024 Patient is seen and evaluated in room at bedside; denies overall complaints and reports improved breathing Vital signs are reviewed, temperature 98.2, pulse 62, respiration 18 and blood pressure of 99/54; -Cardiology on board and recommending to continue to hold Entresto and metolazone due to hypotension - Repeat blood work reveals sodium 134, potassium 5.2, BUN 117 creatinine 2.59. SEFERINO's and weights do not appear accurate. Patient has been on IV Lasix 40 mg every 12 hours. Cardiology recommending to increase Lasix to 80 mg every 12 hours and add metolazone 2.5 mg daily due to persistent fluid overload -- Hemoglobin dropped down from 9.1-7.8 this morning; we will continue with Protonix 40 mg twice daily and monitor H&H closely with stool occult blood 03/04/2024 Patient is awake and alert, sitting in chair Is still feeling short of breath with exertion and even with talking. He has significant bilateral pitting leg edema and basilar crepitation. He is currently on IV Lasix 80 mg twice daily, he had around 700 mL of urine output yesterday, creatinine stable since admission around 2.5, baseline 1.3-1.6. Nephrology is on the case. Patient also aware about his fluid restriction COPD exacerbation improving, will switch IV Solu-Medrol 40 mg and to prednisone 30 mg He has left leg cellulitis with pain in the left leg, significantly improved and he can walk on it as he states. Signs of inflammation improving with less redness swelling and tenderness. Patient looks like has bilateral chronic stasis dermatitis. No fever or leukocytosis. We can switch Rocephin to Keflex x 5 days today. Pushpasto remains on hold Renal ultrasound is negative for hydronephrosis but showed splenomegaly Chest x-ray showing CHF. Hemoglobin stable at 7.6. Patient states that he had colonoscopy about a year ago. Will change steroids to oral dose to decrease chances of bleeding. Patient is also on Eliquis for his history of paroxysmal A-fib. Continue with oral Protonix twice daily Discussed with staff Review of systems CONSTITUTIONAL: No fever, no malaise, no fatigue. GASTROINTESTINAL: No diarrhea, no nausea, no vomiting, no abdominal pain. Nor moactive bowel sounds. NEUROLOGICAL: No headaches, no weakness, no numbness. HEMATOLOGICAL: Denies any bleeding or petechiae. GENITOURINARY: Denies any burning micturition, frequency, or urgency. MUSCULOSKELETAL/RHEUMATOLOGICAL: Denies any joint pain, swelling, or any muscle pain. ENDOCRINE: Denies any polyuria or polydipsia. Active Medications Generic Name Dose Route Start Last Admin Trade Name Freq PRN Reason Stop Dose Admin Albuterol/Ipratropium 3 ml 03/01/24 08:00 03/04/24 08:41 Ipratropium-Albuterol 3 Ml Neb INHALATION Not Given RT-QID DOM Albuterol/Ipratropium 3 ml 03/01/24 03:59 Ipratropium-Albuterol 3 Ml Neb INHALATION RT-Q2H PRN Shortness Of Breath Or Wheezing Allopurinol 300 mg 03/01/24 11:30 03/04/24 08:56 Allopurinol 300 Mg Tab PO 300 mg DAILY DOM Administration Apixaban 5 mg 03/01/24 21:00 03/04/24 08:56 Apixaban 5 Mg Tab PO 5 mg BID DOM Administration Protocol Atorvastatin Calcium 10 mg 03/01/24 21:00 03/03/24 22:14 Atorvastatin 10 Mg Tab PO 10 mg HS DOM Administration Cephalexin 500 mg 03/04/24 16:00 Cephalexin 500 Mg Cap PO 03/09/24 16:01 TID DOM Protocol Ferrous Sulfate 325 mg 03/02/24 09:00 03/04/24 08:56 Ferrous Sulfate 325 Mg Tab PO 325 mg DAILY DOM Administration Furosemide 80 mg 03/03/24 21:00 03/04/24 08:56 Furosemide 10 Mg/Ml 4 Ml Vial IV 80 mg Q12HR DOM Administration Hydromorphone HCl 0.5 mg 03/01/24 02:44 03/03/24 22:20 Hydromorphone 0.5 Mg/0.5 Ml Syringe IVP 0.5 mg Q3HR PRN Administration Pain Melatonin 10 mg 03/01/24 22:16 03/03/24 22:16 Melatonin 5 Mg Tablet PO 10 mg HS PRN Administration Insomnia Metolazone 2.5 mg 03/03/24 09:30 03/04/24 08:56 Metolazone 2.5 Mg Tab PO 2.5 mg DAILY DOM Administration Metoprolol Succinate 12.5 mg 03/01/24 21:00 03/03/24 22:16 Metoprolol Succinate (Er) 25 Mg Tab.Er.24h PO 12.5 mg HS DOM Administration Morphine Sulfate 4 mg 03/01/24 02:52 Morphine Sulfate 4 Mg/Ml Syringe IV Q4HR PRN Severe Pain (Scale 7 to 10) Naloxone HCl 0.2 mg 03/01/24 02:52 Naloxone 0.4 Mg/Ml 1 Ml Vial IV Q2M PRN Opioid Reversal Ondansetron HCl 4 mg 03/01/24 02:52 Ondansetron 4 Mg/2 Ml Vial IVP Q8HR PRN Nausea And Vomiting Pantoprazole Sodium 40 mg 03/02/24 10:45 03/04/24 08:56 Pantoprazole 40 Mg Tablet PO 40 mg BID DOM Administration Prednisone 30 mg 03/05/24 09:00 Prednisone 10 Mg Tab PO DAILY DOM Tamsulosin HCl 0.4 mg 03/01/24 21:00 03/03/24 22:16 Tamsulosin 0.4 Mg Cap.Er.24h PO 0.4 mg HS DOM Administration Objective - Vital Signs Vital signs: Vital Signs Temp 98.3 F 03/04/24 08:15 Pulse 73 03/04/24 08:15 Resp 19 03/04/24 08:15 BP 105/56 03/04/24 08:15 Pulse Ox 100 03/04/24 08:15 FiO2 Intake & Output 03/03/24 03/04/24 03/04/24 18:59 06:59 18:59 Intake Total 838 550 440 Output Total 475 250 Balance 363 300 440 Weight 104.6 kg 104.8 kg Intake: Oral 838 550 440 Output: Urine 475 250 Other: Voiding Method Indwelling Catheter Indwelling Catheter Indwelling Catheter # Bowel Movements 1 - Exam GENERAL: The patient is alert and oriented x3, not in any acute distress. Well developed, well nourished. HEENT: Pupils are round and equally reacting to light. EOMI. No scleral icterus. No conjunctival pallor. Normocephalic, atraumatic. No pharyngeal erythema. No thyromegaly. CARDIOVASCULAR: S1 and S2 present. No murmurs, rubs, or gallops. -PULMONARY: Chest is clear to auscultation, no wheezing , bilateral basal crackles. ABDOMEN: Soft, nontender, nondistended, normoactive bowel sounds. No palpable organomegaly. MUSCULOSKELETAL: No joint swelling or deformity. -EXTREMITIES: No cyanosis, clubbing,. Bilateral pitting leg edema. Bilateral reddish discoloration, looks chronic with no warmth, less redness. NEUROLOGICAL: Gross neurological examination did not reveal any focal deficits. SKIN: No rashes. no petechiae. - Labs CBC & Chem 7: 03/04/24 08:30 03/04/24 08:30 Labs: Abnormal Lab Results - Last 24 Hours (Table) 03/03/24 03/04/24 03/04/24 Range/Units 09:09 08:30 08:30 RBC 2.81 L (4.30-5.90) m/uL Hgb 7.6 L (13.0-17.5) gm/dL Hct 26.9 L (39.0-53.0) % MCHC 28.2 L (31.0-37.0) g/dL RDW 17.5 H (11.5-15.5) % Plt Count 90 L (150-450) k/uL Lymphocytes # 0.2 L (1.0-4.8) k/uL Sodium 134 L 134 L (137-145) mmol/L Potassium 5.2 H (3.5-5.1) mmol/L Carbon Dioxide 21 L (22-30) mmol/L BUN 117 H* 126 H* (9-20) mg/dL Creatinine 2.59 H 2.58 H (0.66-1.25) mg/dL Glucose 137 H 185 H (74-99) mg/dL Assessment and Plan Assessment: 1. Acute on chronic kidney disease stage III; likely ATN secondary to cardiorenal syndrome --Patient has a baseline creatinine of 1.3-1.5; currently creatinine is up to 2.5 -Remains on IV Lasix 80 mg -Primary Operator on the case 2. Acute on chronic systolic CHF -- Last echocardiogram completed reveals a EF of 30 to 35% with mild to moderate mitral and tricuspid regurgitation and moderate pulmonary hypertension; patient is status post AICD -- Lasix 40 mg IV every 12 hours -Monitor strict SEFERINO's, daily weights, renal function and electrolytes; low-salt fluid restricted diet 3. Acute exacerbation COPD; improving change steroids to prednisone; DuoNeb nebulizer treatments 4 times daily and as needed 4. Cellulitis left lower extremity; Improvement, switch to Keflex 5. Elevated troponin; likely demand ischemia , and troponin leak 6. Hypertension; metoprolol 12.5 mg nightly 7. Hyperlipidemia; Lipitor 10 mg p.o. nightly 8. Paroxysmal atrial fibrillation; Eliquis 5 mg twice daily; metoprolol 12.5 mg daily 9. Bilateral status dermatitis 10. Obesity with BMI of 30.5 DVT prophylaxis; SCDs/Eliquis
--- NOTE | 2024-03-04 10:51 | P.PN ---
Subjective HISTORY OF PRESENT ILLNESS: This is a 78-year-old male patient of Dr. Reid with a past medical history significant for coronary artery disease, nonischemic cardiomyopathy, AICD implantation, persistent atrial fibrillation, hypertension, hyperlipidemia, valvular heart disease. We have been asked to see the patient in consultation for congestive heart failure. Patient states he presented to the hospital with complaint of shortness of breath in that he could not catch his breath. He also had lower extremity edema and pain in the legs and ankles and shakiness. His states that he had redness and swelling in the lower extremities. He estevan es having any chest pain or pressure. He also had recent fall with abrasions to arms and back that caused ER visit and was sent home. The patient has been started on IV Lasix 40 mg every 12 hours by nephrology. He has also been started on IV steroids, and IV antibiotics per primary medicine. Vital signs are stable. EKG reveals atrial fibrillation with controlled ventricular rate. PVCs. Chest xray: Marked cardiomegaly. Increased CHF. Elevated right diaphragm. Renal ultrasound reveals no hydronephrosis or nephrolithiasis. Small amount of ascites. Splenomegaly. Laboratory studies: WBC 8.5, hemoglobin 7.6, platelet count 99. Sodium 134, potassium 5.1, BUN 111 and creatinine 2.41. Glucose 132. Troponin 0.037 and 0.051. Home cardiac medications: Eliquis 5 mg twice daily, Bumex 1 mg daily, ferrous sulfate 325 mg daily, metolazone 2.5 mg every 2 days, Toprol-XL 12.5 mg at bedtime, Entresto 24 mg - 26 mg 1 tablet twice daily, simvastatin 20 mg at bedtime. Most recent echocardiogram performed 11/03/2023 reveals EF of 30 to 35%, improved from 20-25%, mild to moderate MR, mild to moderate TR, moderate pulmonary hypertension Cardiac catheterization history: January 2018 with 50% lesion in the mid LAD 03/03 Patient is seen today in follow-up. He states he is had large bowel movements but denies any blood in his stools. Entresto and metolazone has been on hold due to hypotension. Blood pressure running between 99/54 and 114/68. Heart rate 77, pulse ox 99% on 3 L nasal cannula. Repeat blood work reveals sodium 134, potassium 5.2, BUN 117 creatinine 2.59. SEFERINO's and weights do not appear accurate. Patient has been on IV Lasix 40 mg every 12 hours. 03/04/2024 Patient examined this morning. Patient is sitting up in the chair. Patient currently denies chest pain or pressure. He currently denies shortness of breath. He is on nasal cannula with oxygen saturations greater than 92%. He remains on IV Lasix 80 mg every 12 hours. Kidney function today is stable at 2.58. PHYSICAL EXAM: VITAL SIGNS: Reviewed. GENERAL: Well-developed in no acute distress. NECK: Supple. No JVD or thyromegaly LUNGS: Respirations even and unlabored. Lungs essentially clear to auscultation bilaterally, diminished. HEART: Regular rate and rhythm. S1 and S2 heard. EXTREMITIES: Normal range of motion. No clubbing or cyanosis. Peripheral pulses intact. 2+ bilateral lower extremity edema with chronic discoloration ASSESSMENT: Shortness of breath Acute on chronic heart failure with reduced ejection fraction, 20-25%, now 30 to 35% Nonischemic cardiomyopathy History of AICD implantation No obstructive coronary artery disease with 50% lesion in the mid LAD Persistent atrial fibrillation History of COPD Hypertension Hyperlipidemia Valvular heart disease Bicytopenia with anemia and thrombocytopenia PLAN: Continue current cardiac medications Continue IV Lasix Daily weights, accurate intake and output, and monitoring of kidney function Further recommendations pending patient course Nurse practitioner note has been reviewed by physician. Signing provider agrees with the documented findings, assessment, and plan of care documented by GENERAL LEDGER BOOKKEEPER as a scribe. Objective - Vital Signs Vital signs: Vital Signs Temp 98.3 F 03/04/24 08:15 Pulse 73 03/04/24 08:15 Resp 19 03/04/24 08:15 BP 105/56 03/04/24 08:15 Pulse Ox 100 03/04/24 08:15 FiO2 Intake & Output 03/03/24 03/04/24 03/04/24 18:59 06:59 18:59 Intake Total 838 550 440 Output Total 475 250 Balance 363 300 440 Weight 104.6 kg 104.8 kg Intake: Oral 838 550 440 Output: Urine 475 250 Other: Voiding Method Indwelling Catheter Indwelling Catheter Indwelling Catheter # Bowel Movements 1 - Labs CBC & Chem 7: 03/04/24 08:30 03/04/24 08:30 Labs: Abnormal Lab Results - Last 24 Hours (Table) 03/04/24 03/04/24 Range/Units 08:30 08:30 RBC 2.81 L (4.30-5.90) m/uL Hgb 7.6 L (13.0-17.5) gm/dL Hct 26.9 L (39.0-53.0) % MCHC 28.2 L (31.0-37.0) g/dL RDW 17.5 H (11.5-15.5) % Plt Count 90 L (150-450) k/uL Lymphocytes # 0.2 L (1.0-4.8) k/uL Sodium 134 L (137-145) mmol/L Carbon Dioxide 21 L (22-30) mmol/L BUN 126 H* (9-20) mg/dL Creatinine 2.58 H (0.66-1.25) mg/dL Glucose 185 H (74-99) mg/dL
--- NOTE | 2024-03-04 11:23 | P.PN ---
Subjective patient is seen for follow-up for acute kidney injury and chronic kidney disease. No significant complaints today. Currently being diuresed. serum creatinine staying at about 2.5. B UN is disproportionately elevated secondary to steroids. No active GI bleed noted although hemoglobin at 7.6 g/dL. Objective - Vital Signs Vital signs: Vital Signs Temp 98.3 F 03/04/24 08:15 Pulse 73 03/04/24 08:15 Resp 19 03/04/24 08:15 BP 105/56 03/04/24 08:15 Pulse Ox 100 03/04/24 08:15 FiO2 Intake & Output 03/03/24 03/04/24 03/04/24 18:59 06:59 18:59 Intake Total 838 550 440 Output Total 475 250 Balance 363 300 440 Weight 104.6 kg 104.8 kg Intake: Oral 838 550 440 Output: Urine 475 250 Other: Voiding Method Indwelling Catheter Indwelling Catheter Indwelling Catheter # Bowel Movements 1 - Exam patient is awake, comfortable, no acute distress. Examination of the heart S1 and S2 Examination of the lungs bilateral breath sounds are heard Abdomen is soft nontender Examination of lower extremities shows 2+ edema bilaterally DIGITAL RESEARCH ANALYST exam grossly intact - Labs CBC & Chem 7: 03/04/24 08:30 03/04/24 08:30 Labs: Abnormal Lab Results - Last 24 Hours (Table) 03/04/24 03/04/24 Range/Units 08:30 08:30 RBC 2.81 L (4.30-5.90) m/uL Hgb 7.6 L (13.0-17.5) gm/dL Hct 26.9 L (39.0-53.0) % MCHC 28.2 L (31.0-37.0) g/dL RDW 17.5 H (11.5-15.5) % Plt Count 90 L (150-450) k/uL Lymphocytes # 0.2 L (1.0-4.8) k/uL Sodium 134 L (137-145) mmol/L Carbon Dioxide 21 L (22-30) mmol/L BUN 126 H* (9-20) mg/dL Creatinine 2.58 H (0.66-1.25) mg/dL Glucose 185 H (74-99) mg/dL Assessment and Plan Assessment: 1. Acute kidney injury secondary to ATN secondary to cardiorenal syndrome. Creatinine stable at 2.5. BUN out of proportion to creatinine due to IV Steroids. Renal US no hydronephrosis. maintained on IV Lasix. 2. Chronic kidney disease stage IIIb with baseline creatinine 1.3-1.5 secondary to nephrosclerosis. 3. Acute on chronic systolic CHF ejection fraction of 30 to 35% with mild to moderate mitral and tricuspid regurgitation and moderate pulmonary hypertension. Status post AICD. 4. Fluid overload. 5. Anemia of chronic kidney disease with severe iron deficiency. no active bleeding noted. Plan: continue with IV Lasix Add IV iron salt and fluid restriction Continue with metolazone Repeat labs in a.m. recommend decreasing dose of steroids
[2024-03-04] MEDS: SODIUM FERRIC GLUCONAT-SUCROSE 125 MG in SODIUM CHLORIDE 0.9% 100 ML IVPB SCH (12:45)
[2024-03-04] MEDS: CEPHALEXIN 500 MG CAP PO SCH (15:19)
[2024-03-04] MEDS ORDERED: CEPHALEXIN 500 MG CAP PO SCH (16:00)
[2024-03-05] MEDS: APIXABAN 2.5 MG TABLET PO SCH (08:40)
[2024-03-05] MEDS: predniSONE 10 MG TAB PO SCH (08:40)
[2024-03-05 10:02] LABS: African American GFR (CKD) 28 (>60 ml/min/1.73 sqM); Anion Gap 14 mmol/L; Calcium 8.6 mg/dL (8.4-10.2); Carbon Dioxide 20 mmol/L (22-30); Chloride 100 mmol/L (98-107); Glucose 104 mg/dL (74-99); Non-African American GFR(CKD) 24 (>60 ml/min/1.73 sqM); Potassium 4.3 mmol/L (3.5-5.1); Sodium 134 mmol/L (137-145)
[2024-03-05 10:21] LABS: Blood Urea Nitrogen 130 mg/dL (9-20)
--- NOTE | 2024-03-05 13:00 | P.PN ---
Subjective patient is seen for follow-up for acute kidney injury and chronic kidney disease. No significant complaints today. Currently being diuresed. serum creatinine staying at about 2.5. B UN is disproportionately elevated secondary to steroids. dose was decreased yesterday. No active GI bleed noted although hemoglobin at 7.6 g/dL. patient is complaining of burning With the Knott catheter. Objective - Vital Signs Vital signs: Vital Signs Temp 97.3 F L 03/05/24 07:55 Pulse 64 03/05/24 07:55 Resp 15 03/05/24 07:55 BP 115/68 03/05/24 07:55 Pulse Ox 100 03/05/24 08:57 FiO2 Intake & Output 03/04/24 03/05/24 03/05/24 18:59 06:59 18:59 Intake Total 661 118 236 Output Total 301 901 Balance 360 -783 236 Weight 98.4 kg Intake: Oral 661 118 236 Output: Urine 300 900 Stool 1 1 Other: Voiding Method Indwelling Catheter Indwelling Catheter Indwelling Catheter - Exam patient is awake, comfortable, no acute distress. Examination of the heart S1 and S2 Examination of the lungs bilateral breath sounds are heard Abdomen is soft nontender Examination of lower extremities shows 2+ edema bilaterally ELECTROTYPE SERVICER exam grossly intact - Labs CBC & Chem 7: 03/04/24 08:30 03/05/24 08:58 Labs: Abnormal Lab Results - Last 24 Hours (Table) 03/05/24 Range/Units 08:58 Sodium 134 L (137-145) mmol/L Carbon Dioxide 20 L (22-30) mmol/L BUN 130 H* (9-20) mg/dL Creatinine 2.52 H (0.66-1.25) mg/dL Glucose 104 H (74-99) mg/dL Assessment and Plan Assessment: 1. Acute kidney injury secondary to ATN secondary to cardiorenal syndrome. Creatinine stable at 2.5. BUN out of proportion to creatinine due to Steroids. dose decreased now. Renal US no hydronephrosis. maintained on IV Lasix. 2. Chronic kidney disease stage IIIb with baseline creatinine 1.3-1.5 secondary to nephrosclerosis. 3. Acute on chronic systolic CHF ejection fraction of 30 to 35% with mild to moderate mitral and tricuspid regurgitation and moderate pulmonary hypertension. Status post AICD. 4. Fluid overload. 5. Anemia of chronic kidney disease with severe iron deficiency. no active bleeding noted. Plan: continue with IV Lasix continue IV iron salt and fluid restriction Continue with metolazone Repeat labs in a.m. can try to DC Knott catheter and reinsert if patient continues to have urine retention. Monitor with post void bladder scan
--- NOTE | 2024-03-05 14:07 | P.PN ---
Subjective Progress Note Date: 03/05/24 HISTORY OF PRESENT ILLNESS: This is a 78-year-old male patient of Dr. Reid with a past medical history s ignificant for coronary artery disease, nonischemic cardiomyopathy, AICD implantation, persistent atrial fibrillation, hypertension, hyperlipidemia, valvular heart disease. We have been asked to see the patient in consultation for congestive heart failure. Patient states he presented to the hospital with complaint of shortness of breath in that he could not catch his breath. He also had lower extremity edema and pain in the legs and ankles and shakiness. His states that he had redness and swelling in the lower extremities. He denies having any chest pain or pressure. He also had recent fall with abrasions to arms and back that caused ER visit and was sent home. The patient has been started on IV Lasix 40 mg every 12 hours by nephrology. He has also been started on IV steroids, and IV antibiotics per primary medicine. Vital signs are stable. EKG reveals atrial fibrillation with controlled ventricular rate. PVCs. Chest xray: Marked cardiomegaly. Increased CHF. Elevated right diaphragm. Renal ultrasound reveals no hydronephrosis or nephrolithiasis. Small amount of ascites. Splenomegaly. Laboratory studies: WBC 8.5, hemoglobin 7.6, platelet count 99. Sodium 134, potassium 5.1, BUN 111 and creatinine 2.41. Glucose 132. Troponin 0.037 and 0.051. Home cardiac medications: Eliquis 5 mg twice daily, Bumex 1 mg daily, ferrous sulfate 325 mg daily, metolazone 2.5 mg every 2 days, Toprol-XL 12.5 mg at bedtime, Entresto 24 mg - 26 mg 1 tablet twice daily, simvastatin 20 mg at bedtime. Most recent echocardiogram performed 11/03/2023 reveals EF of 30 to 35%, improved from 20-25%, mild to moderate MR, mild to moderate TR, moderate pulmonary hypertension Cardiac catheterization history: January 2018 with 50% lesion in the mid LAD 03/03 Patient is seen today in follow-up. He states he is had large bowel movements but denies any blood in his stools. Entresto and metolazone has been on hold due to hypotension. Blood pressure running between 99/54 and 114/68. Heart rate 77, pulse ox 99% on 3 L nasal cannula. Repeat blood work reveals sodium 134, potassium 5.2, BUN 117 creatinine 2.59. SEFERINO's and weights do not appear accurate. Patient has been on IV Lasix 40 mg every 12 hours. 03/04/2024 Patient examined this morning. Patient is sitting up in the chair. Patient currently denies chest pain or pressure. He currently denies shortness of breath. He is on nasal cannula with oxygen saturations greater than 92%. He remains on IV Lasix 80 mg every 12 hours. Kidney function today is stable at 2.58. 03/05 Patient is seen today in follow-up on the [facility] floor. Patient states his breathing is better today and lower extremity edema is improved. He denies having any chest pain. Renal function remains abnormal with BUN 130 and creatinine 2.52. Sodium 134, potassium 4.3. PHYSICAL EXAM: VITAL SIGNS: Reviewed. GENERAL: Well-developed in no acute distress. NECK: Supple. No JVD or thyromegaly LUNGS: Respirations even and unlabored. Lungs essentially clear to auscultation bilaterally, diminished. HEART: Regular rate and rhythm. S1 and S2 heard. EXTREMITIES: Normal range of motion. No clubbing or cyanosis. Peripheral pulse s intact. 1+ bilateral lower extremity edema with chronic discoloration ASSESSMENT: Shortness of breath Acute on chronic heart failure with reduced ejection fraction, 20-25%, now 30 to 35% Nonischemic cardiomyopathy History of AICD implantation No obstructive coronary artery disease with 50% lesion in the mid LAD Persistent atrial fibrillation History of COPD Hypertension Hyperlipidemia Valvular heart disease Bicytopenia with anemia and thrombocytopenia PLAN: Continue current cardiac medications Continue IV Lasix Daily weights, accurate intake and output, and monitoring of kidney function Decrease Eliquis to 2.5 mg twice daily due to abnormal renal function test Further recommendations pending patient course Nurse practitioner note has been reviewed by physician. Signing provider agrees with the documented findings, assessment, and plan of care documented by ANCIENT ART CURATOR as a scribe. Objective - Vital Signs Vital signs: Vital Signs Temp 98.4 F 03/05/24 00:40 Pulse 52 L 03/05/24 00:40 Resp 15 03/05/24 00:40 BP 100/61 03/05/24 00:40 Pulse Ox 100 03/05/24 00:40 FiO2 Intake & Output 03/04/24 03/05/24 03/05/24 18:59 06:59 18:59 Intake Total 661 118 Output Total 301 901 Balance 360 -783 Weight 98.4 kg Intake: Oral 661 118 Output: Urine 300 900 Stool 1 1 Other: Voiding Method Indwelling Catheter Indwelling Catheter - Labs CBC & Chem 7: 03/04/24 08:30 03/05/24 08:58 Labs: Abnormal Lab Results - Last 24 Hours (Table) 03/04/24 03/04/24 Range/Units 08:30 08:30 RBC 2.81 L (4.30-5.90) m/uL Hgb 7.6 L (13.0-17.5) gm/dL Hct 26.9 L (39.0-53.0) % MCHC 28.2 L (31.0-37.0) g/dL RDW 17.5 H (11.5-15.5) % Plt Count 90 L (150-450) k/uL Lymphocytes # 0.2 L (1.0-4.8) k/uL Sodium 134 L (137-145) mmol/L Carbon Dioxide 21 L (22-30) mmol/L BUN 126 H* (9-20) mg/dL Creatinine 2.58 H (0.66-1.25) mg/dL Glucose 185 H (74-99) mg/dL
--- NOTE | 2024-03-06 00:17 | P.PN ---
Subjective 78-year-old male to the ER for evaluation of severe weakness dyspnea shortness of breath left leg pain severe debility and overall weakness and shortness of breath. Symptoms have progressed significantly throughout the day as he feels fevers and chills admitted complaining of leg pain and redness -- Patient also reports shortness of breath and reporting it as an asthma attack with cough productive of yellow phlegm Blood work completed in ED reveals a WBC of 12.5, hemoglobin of 9.1 and platelet count of 134, sodium 134, potassium 5.1, BUNs/creatinine 108/2.43 and blood glucose of 140, troponin of 0.037 Patient reports marked improvement in breathing; denies any chest pain -Vital signs reviewed and are stable Lab review reveals a drop in hemoglobin from 9.1 yesterday down to 7.8; we will monitor H&H closely; order stool occult blood; Protonix 40 mg twice daily 03/03/2024 Patient is seen and evaluated in room at bedside; denies overall complaints and reports improved breathing Vital signs are reviewed, temperature 98.2, pulse 62, respiration 18 and blood pressure of 99/54; -Cardiology on board and recommending to continue to hold Entresto and metolazone due to hypotension - Repeat blood work reveals sodium 134, potassium 5.2, BUN 117 creatinine 2.59. SEFERINO's and weights do not appear accurate. Patient has been on IV Lasix 40 mg every 12 hours. Cardiology recommending to increase Lasix to 80 mg every 12 hours and add metolazone 2.5 mg daily due to persistent fluid overload -- Hemoglobin dropped down from 9.1-7.8 this morning; we will continue with Protonix 40 mg twice daily and monitor H&H closely with stool occult blood 03/04/2024 Patient is awake and alert, sitting in chair Is still feeling short of breath with exertion and even with talking. He has significant bilateral pitting leg edema and basilar crepitation. He is currently on IV Lasix 80 mg twice daily, he had around 700 mL of urine output yesterday, creatinine stable since admission around 2.5, baseline 1.3-1.6. Nephrology is on the case. Patient also aware about his fluid restriction COPD exacerbation improving, will switch IV Solu-Medrol 40 mg and to prednisone 30 mg He has left leg cellulitis with pain in the left leg, significantly improved and he can walk on it as he states. Signs of inflammation improving with less redness swelling and tenderness. Patient looks like has bilateral chronic stasis dermatitis. No fever or leukocytosis. We can switch Rocephin to Keflex x 5 days today. Behzad remains on hold Renal ultrasound is negative for hydronephrosis but showed splenomegaly Chest x-ray showing CHF. Hemoglobin stable at 7.6. Patient states that he had colonoscopy about a year ago. Will change steroids to oral dose to decrease chances of bleeding. Patient is also on Eliquis for his history of paroxysmal A-fib. Continue with oral Protonix twice daily Discussed with staff 03/05/2024 Patient sitting up, breathing and tachypnea improving slowly and gradually On exam there is no significant wheezing or crepitation He remains on home oxygen which is new for him He still has bilateral leg edema PT/OT requested Abdominal ultrasound is negative for hydronephrosis. Patient on Keflex for leg cellulitis Is on IV Lasix 80 mg twice daily and Solu-Medrol 40 mg. Objective - Vital Signs Vital signs: Vital Signs Temp 97.3 F L 03/05/24 07:55 Pulse 64 03/05/24 07:55 Resp 15 03/05/24 07:55 BP 115/68 03/05/24 07:55 Pulse Ox 100 03/05/24 08:57 FiO2 Intake & Output 03/04/24 03/05/24 03/05/24 18:59 06:59 18:59 Intake Total 661 118 236 Output Total 301 901 Balance 360 -783 236 Weight 98.4 kg Intake: Oral 661 118 236 Output: Urine 300 900 Stool 1 1 Other: Voiding Method Indwelling Catheter Indwelling Catheter Indwelling Catheter - Exam GENERAL: The patient is alert and oriented x3, not in any acute distress. Well developed, well nourished. HEENT: Pupils are round and equally reacting to light. EOMI. No scleral icterus. No conjunctival pallor. Normocephalic, atraumatic. No pharyngeal erythema. No thyromegaly. CARDIOVASCULAR: S1 and S2 present. No murmurs, rubs, or gallops. -PULMONARY: Chest is clear to auscultation, no wheezing , bilateral basal crackles. ABDOMEN: Soft, nontender, nondistended, normoactive bowel sounds. No palpable organomegaly. MUSCULOSKELETAL: No joint swelling or deformity. -EXTREMITIES: No cyanosis, clubbing,. Bilateral pitting leg edema. Bilateral reddish discoloration, looks chronic with no warmth, less redness. NEUROLOGICAL: Gross neurological examination did not reveal any focal deficits. SKIN: No rashes. no petechiae. - Labs CBC & Chem 7: 03/04/24 08:30 03/05/24 08:58 Labs: Abnormal Lab Results - Last 24 Hours (Table) 03/05/24 Range/Units 08:58 Sodium 134 L (137-145) mmol/L Carbon Dioxide 20 L (22-30) mmol/L BUN 130 H* (9-20) mg/dL Creatinine 2.52 H (0.66-1.25) mg/dL Glucose 104 H (74-99) mg/dL Assessment and Plan Assessment: 1. Acute on chronic kidney disease stage III; likely ATN secondary to cardiorenal syndrome --Patient has a baseline creatinine of 1.3-1.5; currently creatinine is up to 2.5 -Remains on IV Lasix 80 mg -Background Check Coordinator on the case 2. Acute on chronic systolic CHF -- Last echocardiogram completed reveals a EF of 30 to 35% with mild to moderate mitral and tricuspid regurgitation and moderate pulmonary hypertension; patient is status post AICD -- Lasix 40 mg IV every 12 hours -Monitor strict SEFERINO's, daily weights, renal function and electrolytes; low-salt fluid restricted diet 3. Acute exacerbation COPD; improving change steroids to prednisone; DuoNeb nebulizer treatments 4 times daily and as needed 4. Cellulitis left lower extremity; Improvement, switch to Keflex 5. Elevated troponin; likely demand ischemia , and troponin leak 6. Hypertension; metoprolol 12.5 mg nightly 7. Hyperlipidemia; Lipitor 10 mg p.o. nightly 8. Paroxysmal atrial fibrillation; Eliquis 5 mg twice daily; metoprolol 12.5 mg daily 9. Bilateral status dermatitis 10. Obesity with BMI of 30.5 DVT prophylaxis; SCDs/Eliquis
--- NOTE | 2024-03-06 10:32 | P.PN ---
Subjective Progress Note Date: 03/06/24 HISTORY OF PRESENT ILLNESS: This is a 78-year-old male patient of Dr. Reid with a past medical history s ignificant for coronary artery disease, nonischemic cardiomyopathy, AICD implantation, persistent atrial fibrillation, hypertension, hyperlipidemia, valvular heart disease. We have been asked to see the patient in consultation for congestive heart failure. Patient states he presented to the hospital with complaint of shortness of breath in that he could not catch his breath. He also had lower extremity edema and pain in the legs and ankles and shakiness. His states that he had redness and swelling in the lower extremities. He denies having any chest pain or pressure. He also had recent fall with abrasions to arms and back that caused ER visit and was sent home. The patient has been started on IV Lasix 40 mg every 12 hours by nephrology. He has also been started on IV steroids, and IV antibiotics per primary medicine. Vital signs are stable. EKG reveals atrial fibrillation with controlled ventricular rate. PVCs. Chest xray: Marked cardiomegaly. Increased CHF. Elevated right diaphragm. Renal ultrasound reveals no hydronephrosis or nephrolithiasis. Small amount of ascites. Splenomegaly. Laboratory studies: WBC 8.5, hemoglobin 7.6, platelet count 99. Sodium 134, potassium 5.1, BUN 111 and creatinine 2.41. Glucose 132. Troponin 0.037 and 0.051. Home cardiac medications: Eliquis 5 mg twice daily, Bumex 1 mg daily, ferrous sulfate 325 mg daily, metolazone 2.5 mg every 2 days, Toprol-XL 12.5 mg at bedtime, Entresto 24 mg - 26 mg 1 tablet twice daily, simvastatin 20 mg at bedtime. Most recent echocardiogram performed 11/03/2023 reveals EF of 30 to 35%, improved from 20-25%, mild to moderate MR, mild to moderate TR, moderate pulmonary hypertension Cardiac catheterization history: January 2018 with 50% lesion in the mid LAD 03/03 Patient is seen today in follow-up. He states he is had large bowel movements but denies any blood in his stools. Entresto and metolazone has been on hold due to hypotension. Blood pressure running between 99/54 and 114/68. Heart rate 77, pulse ox 99% on 3 L nasal cannula. Repeat blood work reveals sodium 134, potassium 5.2, BUN 117 creatinine 2.59. SEFERINO's and weights do not appear accurate. Patient has been on IV Lasix 40 mg every 12 hours. 03/04/2024 Patient examined this morning. Patient is sitting up in the chair. Patient currently denies chest pain or pressure. He currently denies shortness of breath. He is on nasal cannula with oxygen saturations greater than 92%. He remains on IV Lasix 80 mg every 12 hours. Kidney function today is stable at 2.58. 03/05 Patient is seen today in follow-up on the [facility] floor. Patient states his breathing is better today and lower extremity edema is improved. He denies having any chest pain. Renal function remains abnormal with BUN 130 and creatinine 2.52. Sodium 134, potassium 4.3. 03/06 Patient states that he still has shortness of breath with exertion but feels his breathing is stable when he is at rest. He denies having any chest pain. He continues to have some lower extremity edema. He denies any nausea or vomiting. Blood pressure 102/65, heart rate 53, pulse ox 100% on 3 L nasal cannula. Repeat blood work not available at the time of this dictation. PHYSICAL EXAM: VITAL SIGNS: Reviewed. GENERAL: Well-developed in no acute distress. NECK: Supple. No JVD or thyromegaly LUNGS: Respirations even and unlabored. Lungs essentially clear to auscultation bilaterally, diminished. HEART: Regular rate and rhythm. S1 and S2 heard. EXTREMITIES: Normal range of motion. No clubbing or cyanosis. Peripheral pulses intact. 1+ bilateral lower extremity edema with chronic discoloration ASSESSMENT: Shortness of breath Acute on chronic heart failure with reduced ejection fraction, 20-25%, now 30 to 35% Nonischemic cardiomyopathy History of AICD implantation No obstructive coronary artery disease with 50% lesion in the mid LAD Persistent atrial fibrillation History of COPD Hypertension Hyperlipidemia Valvular heart disease Bicytopenia with anemia and thrombocytopenia PLAN: Continue current cardiac medications Continue IV Lasix 80 mg every 12 hours, patient also on metolazone 2.5 mg daily Daily weights, accurate intake and output, and monitoring of kidney function Decrease Eliquis to 2.5 mg twice daily due to abnormal renal function test No medication changes made today. Further recommendations pending patient course Nurse practitioner note has been reviewed by physician. Signing provider agrees with the documented findings, assessment, and plan of care documented by GUN NUMBERER as a scribe. Objective - Vital Signs Vital signs: Vital Signs Temp 97.4 F L 03/06/24 02:30 Pulse 53 L 03/06/24 02:30 Resp 18 03/06/24 02:30 BP 102/65 03/06/24 02:30 Pulse Ox 100 03/06/24 02:30 FiO2 Intake & Output 03/05/24 03/06/24 03/06/24 18:59 06:59 18:59 Intake Total 572 444 Output Total 450 1200 Balance 122 -756 Weight 110.9 kg Intake: Oral 572 444 Output: Urine 450 1200 Uretheral (Knott) 450 Other: Voiding Method Indwelling Catheter Toilet Urinal # Voids 1 # Bowel Movements 1 - Labs CBC & Chem 7: 03/04/24 08:30 03/05/24 08:58 Labs: Abnormal Lab Results - Last 24 Hours (Table) 03/05/24 Range/Units 08:58 Sodium 134 L (137-145) mmol/L Carbon Dioxide 20 L (22-30) mmol/L BUN 130 H* (9-20) mg/dL Creatinine 2.52 H (0.66-1.25) mg/dL Glucose 104 H (74-99) mg/dL
[2024-03-06 10:45] LABS: BUN/Creat Ratio 45.38 Ratio (12.00-20.00); Calcium 9.1 mg/dL (8.7-10.3); Carbon Dioxide 21.7 mmol/L (21.6-31.8); Chloride 98 mmol/L (96-109); Glucose 137 mg/dL (70-110); Potassium 4.4 mmol/L (3.5-5.5); Sodium 136 mmol/L (135-145)
[2024-03-06] MEDS: Acetaminophen-Codeine 300-30mg TAB PO PRN (18:26)
--- NOTE | 2024-03-06 19:19 | P.PN ---
Subjective patient is seen for follow-up for acute kidney injury and chronic kidney disease. No significant complaints today. Currently being diuresed. serum creatinine staying at about 2.5. B UN is disproportionately elevated secondary to steroids. dose was decreased yesterday. No active GI bleed noted although hemoglobin at 7.6 g/dL. Knott catheter was removed yesterday but was replaced as patient continued to have urine retention. Objective - Vital Signs Vital signs: Vital Signs Temp 97.4 F L 03/06/24 15:39 Pulse 95 03/06/24 15:39 Resp 16 03/06/24 15:39 BP 90/49 03/06/24 15:39 Pulse Ox 94 L 03/06/24 15:39 FiO2 Intake & Output 03/06/24 03/06/24 03/07/24 06:59 18:59 06:59 Intake Total 444 800 Output Total 1200 440 Balance -756 360 Weight 110.9 kg Intake: Oral 444 800 Output: Urine 1200 440 Uretheral (Knott) 450 Other: Voiding Method Toilet Indwelling Catheter Urinal # Voids 1 # Bowel Movements 1 - Exam patient is awake, comfortable, no acute distress. Examination of the heart S1 and S2 Examination of the lungs bilateral breath sounds are heard Abdomen is soft nontender Examination of lower extremities shows 2+ edema bilaterally HAND STAPLER exam grossly intact - Labs CBC & Chem 7: 03/04/24 08:30 03/06/24 07:49 Labs: Abnormal Lab Results - Last 24 Hours (Table) 03/06/24 Range/Units 07:49 Anion Gap 16.30 H (4.00-12.00) mmol/L BUN 118.0 A* (9.0-27.0) mg/dL Creatinine 2.6 H (0.6-1.5) mg/dL Est GFR (CKD-EPI) 25 L (>=60) BUN/Creatinine Ratio 45.38 H (12.00-20.00) Ratio Glucose 137 H (70-110) mg/dL Assessment and Plan Assessment: 1. Acute kidney injury secondary to ATN secondary to cardiorenal syndrome. Creatinine stable at 2.5. BUN out of proportion to creatinine due to Steroids. dose decreased now. Renal US no hydronephrosis. maintained on IV Lasix. 2. Chronic kidney disease stage IIIb with baseline creatinine 1.3-1.5 secondary to nephrosclerosis. 3. Acute on chronic systolic CHF ejection fraction of 30 to 35% with mild to moderate mitral and tricuspid regurgitation and moderate pulmonary hypertension. Status post AICD. 4. Fluid overload. 5. Anemia of chronic kidney disease with severe iron deficiency. no active bleeding noted. 6. Urine retention currently with indwelling Knott catheter. Failed voiding trial and Knott catheter was reinserted 03/05/2024. Maintained on Flomax Plan: continue with IV Lasix continue IV iron salt and fluid restriction Continue with metolazone Repeat labs in a.m. Continue with Knott catheter
--- NOTE | 2024-03-07 00:03 | P.PN ---
Subjective 78-year-old male to the ER for evaluation of severe weakness dyspnea shortness of breath left leg pain severe debility and overall weakness and shortness of breath. Symptoms have progressed significantly throughout the day as he feels fevers and chills admitted complaining of leg pain and redness -- Patient also reports shortness of breath and reporting it as an asthma attack with cough productive of yellow phlegm Blood work completed in ED reveals a WBC of 12.5, hemoglobin of 9.1 and platelet count of 134, sodium 134, potassium 5.1, BUNs/creatinine 108/2.43 and blood glucose of 140, troponin of 0.037 Patient reports marked improvement in breathing; denies any chest pain -Vital signs reviewed and are stable Lab review reveals a drop in hemoglobin from 9.1 yesterday down to 7.8; we will monitor H&H closely; order stool occult blood; Protonix 40 mg twice daily 03/03/2024 Patient is seen and evaluated in room at bedside; denies overall complaints and reports improved breathing Vital signs are reviewed, temperature 98.2, pulse 62, respiration 18 and blood pressure of 99/54; -Cardiology on board and recommending to continue to hold Entresto and metolazone due to hypotension - Repeat blood work reveals sodium 134, potassium 5.2, BUN 117 creatinine 2.59. SEFERINO's and weights do not appear accurate. Patient has been on IV Lasix 40 mg every 12 hours. Cardiology recommending to increase Lasix to 80 mg every 12 hours and add metolazone 2.5 mg daily due to persistent fluid overload -- Hemoglobin dropped down from 9.1-7.8 this morning; we will continue with Protonix 40 mg twice daily and monitor H&H closely with stool occult blood 03/04/2024 Patient is awake and alert, sitting in chair Is still feeling short of breath with exertion and even with talking. He has significant bilateral pitting leg edema and basilar crepitation. He is currently on IV Lasix 80 mg twice daily, he had around 700 mL of urine output yesterday, creatinine stable since admission around 2.5, baseline 1.3-1.6. Nephrology is on the case. Patient also aware about his fluid restriction COPD exacerbation improving, will switch IV Solu-Medrol 40 mg and to prednisone 30 mg He has left leg cellulitis with pain in the left leg, significantly improved and he can walk on it as he states. Signs of inflammation improving with less redness swelling and tenderness. Patient looks like has bilateral chronic stasis dermatitis. No fever or leukocytosis. We can switch Rocephin to Keflex x 5 days today. Pushpasto remains on hold Renal ultrasound is negative for hydronephrosis but showed splenomegaly Chest x-ray showing CHF. Hemoglobin stable at 7.6. Patient states that he had colonoscopy about a year ago. Will change steroids to oral dose to decrease chances of bleeding. Patient is also on Eliquis for his history of paroxysmal A-fib. Continue with oral Protonix twice daily Discussed with staff 03/05/2024 Patient sitting up, breathing and tachypnea improving slowly and gradually On exam there is no significant wheezing or crepitation He remains on home oxygen which is new for him He still has bilateral leg edema PT/OT requested Abdominal ultrasound is negative for hydronephrosis. Patient on Keflex for leg cellulitis Is on IV Lasix 80 mg twice daily and Solu-Medrol 40 mg. 03/06/2024 Patient is awake alert Breathing is improving Leg swelling is improving as well significantly and patient is also happy about it, still has 1-2+ bilateral pitting leg edema, no evidence of cellulitis. Improving as well.. I think antibiotic Keflex can be discontinued upon discharge as he is improved. Continue on IV Lasix 80 mg and metolazone 2.5 mg twice per week Behzad was put on hold for low blood pressure on admission Possible discharge in 24 to 48 hours. Objective - Vital Signs Vital signs: Vital Signs Temp 97.4 F L 03/06/24 15:39 Pulse 95 03/06/24 15:39 Resp 16 03/06/24 15:39 BP 90/49 03/06/24 15:39 Pulse Ox 94 L 03/06/24 15:39 FiO2 Intake & Output 03/05/24 03/06/24 03/06/24 18:59 06:59 18:59 Intake Total 572 444 560 Output Total 450 1200 440 Balance 122 -756 120 Weight 110.9 kg Intake: Oral 572 444 560 Output: Urine 450 1200 440 Uretheral (Knott) 450 Other: Voiding Method Indwelling Catheter Toilet Indwelling Catheter Urinal # Voids 1 # Bowel Movements 1 1 - Exam GENERAL: The patient is alert and oriented x3, not in any acute distress. Well developed, well nourished. HEENT: Pupils are round and equally reacting to light. EOMI. No scleral icterus. No conjunctival pallor. Normocephalic, atraumatic. No pharyngeal erythema. No thyromegaly. CARDIOVASCULAR: S1 and S2 present. No murmurs, rubs, or gallops. -PULMONARY: Chest is clear to auscultation, no wheezing , bilateral basal crackles. ABDOMEN: Soft, nontender, nondistended, normoactive bowel sounds. No palpable organomegaly. MUSCULOSKELETAL: No joint swelling or deformity. -EXTREMITIES: No cyanosis, clubbing,. Bilateral pitting leg edema. Bilateral reddish discoloration, looks chronic with no warmth, less redness. NEUROLOGICAL: Gross neurological examination did not reveal any focal deficits. SKIN: No rashes. no petechiae. - Labs CBC & Chem 7: 03/04/24 08:30 03/06/24 07:49 Labs: Abnormal Lab Results - Last 24 Hours (Table) 03/06/24 Range/Units 07:49 Anion Gap 16.30 H (4.00-12.00) mmol/L BUN 118.0 A* (9.0-27.0) mg/dL Creatinine 2.6 H (0.6-1.5) mg/dL Est GFR (CKD-EPI) 25 L (>=60) BUN/Creatinine Ratio 45.38 H (12.00-20.00) Ratio Glucose 137 H (70-110) mg/dL Assessment and Plan Assessment: 1. Acute on chronic kidney disease stage III; likely ATN secondary to cardiorenal syndrome --Patient has a baseline creatinine of 1.3-1.5; currently creatinine is up to 2.5 -Remains on IV Lasix 80 mg -Medical Chemist on the case 2. Acute on chronic systolic CHF -- Last echocardiogram completed reveals a EF of 30 to 35% with mild to moderate mitral and tricuspid regurgitation and moderate pulmonary hypertension; patient is status post AICD -- Lasix 40 mg IV every 12 hours -Monitor strict SEFERINO's, daily weights, renal function and electrolytes; low-salt fluid restricted diet 3. Acute exacerbation COPD; improving change steroids to prednisone; DuoNeb nebulizer treatments 4 times daily and as needed 4. Cellulitis left lower extremity; Improvement, switch to Keflex 5. Elevated troponin; likely demand ischemia , and troponin leak 6. Hypertension; metoprolol 12.5 mg nightly 7. Hyperlipidemia; Lipitor 10 mg p.o. nightly 8. Paroxysmal atrial fibrillation; Eliquis 5 mg twice daily; metoprolol 12.5 mg daily 9. Bilateral status dermatitis 10. Obesity with BMI of 30.5 DVT prophylaxis; SCDs/Eliquis
[2024-03-07 04:59] VITALS: RESP 17
[2024-03-07 08:21] VITALS: BP 97/59; PULSE 74; TEMP 98.5
--- NOTE | 2024-03-07 10:51 | P.PN ---
Subjective Progress Note Date: 03/07/24 HISTORY OF PRESENT ILLNESS: This is a 78-year-old male patient of Dr. Reid with a past medical history s ignificant for coronary artery disease, nonischemic cardiomyopathy, AICD implantation, persistent atrial fibrillation, hypertension, hyperlipidemia, valvular heart disease. We have been asked to see the patient in consultation for congestive heart failure. Patient states he presented to the hospital with complaint of shortness of breath in that he could not catch his breath. He also had lower extremity edema and pain in the legs and ankles and shakiness. His states that he had redness and swelling in the lower extremities. He denies having any chest pain or pressure. He also had recent fall with abrasions to arms and back that caused ER visit and was sent home. The patient has been started on IV Lasix 40 mg every 12 hours by nephrology. He has also been started on IV steroids, and IV antibiotics per primary medicine. Vital signs are stable. EKG reveals atrial fibrillation with controlled ventricular rate. PVCs. Chest xray: Marked cardiomegaly. Increased CHF. Elevated right diaphragm. Renal ultrasound reveals no hydronephrosis or nephrolithiasis. Small amount of ascites. Splenomegaly. Laboratory studies: WBC 8.5, hemoglobin 7.6, platelet count 99. Sodium 134, potassium 5.1, BUN 111 and creatinine 2.41. Glucose 132. Troponin 0.037 and 0.051. Home cardiac medications: Eliquis 5 mg twice daily, Bumex 1 mg daily, ferrous sulfate 325 mg daily, metolazone 2.5 mg every 2 days, Toprol-XL 12.5 mg at bedtime, Entresto 24 mg - 26 mg 1 tablet twice daily, simvastatin 20 mg at bedtime. Most recent echocardiogram performed 11/03/2023 reveals EF of 30 to 35%, improved from 20-25%, mild to moderate MR, mild to moderate TR, moderate pulmonary hypertension Cardiac catheterization history: January 2018 with 50% lesion in the mid LAD 03/03 Patient is seen today in follow-up. He states he is had large bowel movements but denies any blood in his stools. Entresto and metolazone has been on hold due to hypotension. Blood pressure running between 99/54 and 114/68. Heart rate 77, pulse ox 99% on 3 L nasal cannula. Repeat blood work reveals sodium 134, potassium 5.2, BUN 117 creatinine 2.59. SEFERINO's and weights do not appear accurate. Patient has been on IV Lasix 40 mg every 12 hours. 03/04/2024 Patient examined this morning. Patient is sitting up in the chair. Patient currently denies chest pain or pressure. He currently denies shortness of breath. He is on nasal cannula with oxygen saturations greater than 92%. He remains on IV Lasix 80 mg every 12 hours. Kidney function today is stable at 2.58. 03/05 Patient is seen today in follow-up on the [facility] floor. Patient states his breathing is better today and lower extremity edema is improved. He denies having any chest pain. Renal function remains abnormal with BUN 130 and creatinine 2.52. Sodium 134, potassium 4.3. 03/06 Patient states that he still has shortness of breath with exertion but feels his breathing is stable when he is at rest. He denies having any chest pain. He continues to have some lower extremity edema. He denies any nausea or vomiting. Blood pressure 102/65, heart rate 53, pulse ox 100% on 3 L nasal cannula. Repeat blood work not available at the time of this dictation. 03/07 Patient is seen today in follow-up. He states he was able to walk in the hallway yesterday. He is still having some shortness of breath lower extremity edema is improving but minimal remains. He has been maintained on IV Lasix 80 mg every 12 hours as well as metolazone 2.5 mg daily. He is followed by nephrology as well. Patient has a negative fluid balance and weights are cough questionable. Blood pressure 97/59, heart rate 74, pulse ox 100% on 4 L nasal cannula. Repeat blood work reveals sodium 136, potassium 4.4, BUN 118 and creatinine 2.6. PHYSICAL EXAM: VITAL SIGNS: Reviewed. GENERAL: Well-developed in no acute distress. NECK: Supple. No JVD or thyromegaly LUNGS: Respirations even and unlabored. Lungs essentially clear to auscultation bilaterally, diminished. HEART: Regular rate and rhythm. S1 and S2 heard. EXTREMITIES: Normal range of motion. No clubbing or cyanosis. Peripheral pulses intact. 1+ bilateral lower extremity edema with chronic discoloration ASSESSMENT: Shortness of breath Acute on chronic heart failure with reduced ejection fraction, 20-25%, now 30 to 35% Nonischemic cardiomyopathy History of AICD implantation No obstructive coronary artery disease with 50% lesion in the mid LAD Persistent atrial fibrillation History of COPD Hypertension Hyperlipidemia Valvular heart disease Bicytopenia with anemia and thrombocytopenia PLAN: Continue current cardiac medications: Eliquis and statin Transition IV Lasix to Bumex 2 mg oral twice daily and continue patient on metolazone 2.5 mg daily Daily weights, accurate intake and output, and monitoring of kidney function Further recommendations pending patient course Nurse practitioner note has been reviewed by physician. Signing provider agrees with the documented findings, assessment, and plan of care documented by BLEACH PLANT OPERATOR as a scribe. Objective - Vital Signs Vital signs: Vital Signs Temp 98.5 F 03/07/24 07:42 Pulse 74 03/07/24 07:42 Resp 17 03/07/24 07:42 BP 97/59 03/07/24 07:42 Pulse Ox 100 03/07/24 07:42 FiO2 Intake & Output 03/06/24 03/07/24 03/07/24 18:59 06:59 18:59 Intake Total 800 Output Total 440 1000 Balance 360 -1000 Weight 108 kg Intake: Oral 800 Output: Urine 440 1000 Other: Voiding Method Indwelling Catheter Indwelling Catheter Indwelling Catheter # Bowel Movements 1 - Labs CBC & Chem 7: 03/04/24 08:30 03/06/24 07:49 Labs: Abnormal Lab Results - Last 24 Hours (Table) 03/06/24 Range/Units 07:49 Anion Gap 16.30 H (4.00-12.00) mmol/L BUN 118.0 A* (9.0-27.0) mg/dL Creatinine 2.6 H (0.6-1.5) mg/dL Est GFR (CKD-EPI) 25 L (>=60) BUN/Creatinine Ratio 45.38 H (12.00-20.00) Ratio Glucose 137 H (70-110) mg/dL
[2024-03-07 11:35] LABS: BUN/Creat Ratio 51.25 Ratio (12.00-20.00); Chloride 98 mmol/L (96-109); Glucose 126 mg/dL (70-110); Potassium 4.7 mmol/L (3.5-5.5); Sodium 135 mmol/L (135-145)
--- NOTE | 2024-03-07 11:49 | P.PN ---
Subjective patient is seen for follow-up for acute kidney injury and chronic kidney disease. No significant complaints today. Currently being diuresed. serum creatinine staying at about 2.5. B UN is disproportionately elevated secondary to steroids. dose was decreased yesterday. No active GI bleed noted although hemoglobin at 7.6 g/dL. Knott catheter was removed but was replaced as patient continued to have urine retention. Objective - Vital Signs Vital signs: Vital Signs Temp 98.5 F 03/07/24 07:42 Pulse 74 03/07/24 07:42 Resp 17 03/07/24 07:42 BP 97/59 03/07/24 07:42 Pulse Ox 100 03/07/24 07:42 FiO2 Intake & Output 03/06/24 03/07/24 03/07/24 18:59 06:59 18:59 Intake Total 800 118 Output Total 440 1000 260 Balance 360 -1000 -142 Weight 108 kg Intake: Oral 800 118 Output: Urine 440 1000 260 Other: Voiding Method Indwelling Catheter Indwelling Catheter Indwelling Catheter # Voids 1 # Bowel Movements 1 - Exam patient is awake, comfortable, no acute distress. Examination of the heart S1 and S2 Examination of the lungs bilateral breath sounds are heard Abdomen is soft nontender Examination of lower extremities shows 2+ edema bilaterally EXTERMINATOR exam grossly intact - Labs CBC & Chem 7: 03/04/24 08:30 03/07/24 05:57 Labs: Abnormal Lab Results - Last 24 Hours (Table) 03/07/24 Range/Units 05:57 BUN 123.0 A* (9.0-27.0) mg/dL Creatinine 2.4 H (0.6-1.5) mg/dL Est GFR (CKD-EPI) 27 L (>=60) BUN/Creatinine Ratio 51.25 H (12.00-20.00) Ratio Glucose 126 H (70-110) mg/dL Assessment and Plan Assessment: 1. Acute kidney injury secondary to ATN secondary to cardiorenal syndrome. Creatinine stable at 2.5. BUN out of proportion to creatinine due to Steroids. dose decreased now. Renal US no hydronephrosis. maintained on IV Lasix. 2. Chronic kidney disease stage IIIb with baseline creatinine 1.3-1.5 secondary to nephrosclerosis. 3. Acute on chronic systolic CHF ejection fraction of 30 to 35% with mild to moderate mitral and tricuspid regurgitation and moderate pulmonary hypertension. Status post AICD. 4. Fluid overload. 5. Anemia of chronic kidney disease with severe iron deficiency. no active blee ding noted. 6. Urine retention currently with indwelling Knott catheter. Failed voiding trial and Knott catheter was reinserted 03/05/2024. Maintained on Flomax Plan: Patient is stable for discharge from nephrology standpoint. Follow-up with urology as outpatient. Continue with metolazone post discharge. Follow-up in the office in about 1-2 weeks.
[2024-03-07] MEDS ORDERED: BUMETANIDE 1 MG TAB PO SCH (21:00)
== END 2024-03-07 15:25 | disposition home health service (06) | DRG 291 ==
LOC: EC 00:28 → 3SCARD 02:54 → 6NMEDSUR 03-04 08:36 → 3SCARD 03-04 08:46 → 6NMEDSUR 03-04 11:20
PROVIDERS: ADMIT Hospitalist; ATTEND Hospitalist
DX: I13.0 Hypertensive heart and chronic kidney disease with heart failure and stage 1 through stage 4 chronic kidney disease, or unspecified chronic kidney disease (principal); I50.23 Acute on chronic systolic (congestive) heart failure; N17.0 Acute kidney failure with tubular necrosis; J44.1 Chronic obstructive pulmonary disease with (acute) exacerbation; I48.19 Other persistent atrial fibrillation; I27.20 Pulmonary hypertension, unspecified; D69.6 Thrombocytopenia, unspecified; I24.89 Other forms of acute ischemic heart disease; R18.8 Other ascites; L03.116 Cellulitis of left lower limb; D63.1 Anemia in chronic kidney disease; E86.0 Dehydration; I95.9 Hypotension, unspecified; Z79.01 Long term (current) use of anticoagulants; I42.8 Other cardiomyopathies; N18.32 Chronic kidney disease, stage 3b; I08.1 Rheumatic disorders of both mitral and tricuspid valves; R16.1 Splenomegaly, not elsewhere classified; T38.0X5A Adverse effect of glucocorticoids and synthetic analogues, initial encounter; E66.9 Obesity, unspecified; Z68.30 Body mass index [BMI] 30.0-30.9, adult; S91.119A Laceration without foreign body of unspecified toe without damage to nail, initial encounter; I49.3 Ventricular premature depolarization; I25.10 Atherosclerotic heart disease of native coronary artery without angina pectoris; E78.5 Hyperlipidemia, unspecified; R33.9 Retention of urine, unspecified; I87.2 Venous insufficiency (chronic) (peripheral); R09.02 Hypoxemia; G25.2 Other specified forms of tremor; Z96.642 Presence of left artificial hip joint; Z87.891 Personal history of nicotine dependence; Z95.810 Presence of automatic (implantable) cardiac defibrillator; Z79.899 Other long term (current) drug therapy; Z82.49 Family history of ischemic heart disease and other diseases of the circulatory system
CPT/HCPCS: 36415; 71045; 76770; 80048; 80053; 82728; 83540; 83550; 83605; 83735; 83880; 84100; 84484; 85025; 85027; 85610; 85730; 93005; 94640; 94760; 96361; 96365; 96375; 96376; 99291

== ENCOUNTER 2024-03-18 03:11 | Inpatient (IN) | payer MEDICARE ==
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
[2024-03-18 04:25] LABS: Anisocytosis Moderate; Basophils % (A) 0 %; Eosinophils # (A) 0.1 k/uL (0-0.7); Eosinophils % (A) 1 %; HCT 29.7 % (39.0-53.0); HGB 8.9 gm/dL (13.0-17.5); Hypochromasia Moderate; Lymphocytes # (A) 0.5 k/uL (1.0-4.8); Lymphocytes % (A) 5 %; MCHC 30.1 g/dL (31.0-37.0); MCV 93.1 fL (80.0-100.0); Macrocytosis Slight; Mean Platelet Volume 10.5; Monocytes # (A) 0.3 k/uL (0-1.0); Monocytes % (A) 4 %; Neutrophils # (A) 8.3 k/uL (1.3-7.7); Neutrophils % (A) 90 %; Platelet Count 123 k/uL (150-450); Poikilocytosis Slight; RDW 20.4 % (11.5-15.5); WBC 9.2 k/uL (3.8-10.6)
[2024-03-18 04:50] LABS: ALT 12 U/L (4-49); AST 26 U/L (17-59); African American GFR (CKD) 26 (>60 ml/min/1.73 sqM); Alkaline Phosphatase 109 U/L (38-126); Anion Gap 15 mmol/L; Calcium 8.9 mg/dL (8.4-10.2); Carbon Dioxide 21 mmol/L (22-30); Chloride 98 mmol/L (98-107); Glucose 105 mg/dL (74-99); Non-African American GFR(CKD) 22 (>60 ml/min/1.73 sqM); Potassium 3.7 mmol/L (3.5-5.1); Sodium 134 mmol/L (137-145); Total Bilirubin 1.6 mg/dL (0.2-1.3); Total Protein 6.5 g/dL (6.3-8.2)
[2024-03-18 05:24] LABS: NT-Pro-B-Type Natriuretic Pept 39100 pg/mL
[2024-03-18 05:29] LABS: Blood Urea Nitrogen 151 mg/dL (9-20)
[2024-03-18 05:31] LABS: Appearance,Urine Clear (Clear); Bacteria,Urine Occasional /hpf; Bilirubin,Urine Negative (Negative); Blood,Urine Moderate (Negative); Color,Urine Light Yellow; Glucose,Urine (UA) Negative (Negative); Hyaline Casts,Urine 28 /lpf (0-2); Ketones,Urine Negative (Negative); Leukocyte Esterase,Urine Large (Negative); Mucus,Urine Rare /hpf; Nitrite,Urine Negative (Negative); PH, Urine 5.5 (5.0-8.0); Protein,Urine 1+ (Negative); RBC,Urine 22 /hpf (0-5); Specific Gravity,Urine 1.011 (1.001-1.035); Squamous Epithelial Cell,Urine 1 /hpf (0-4); Urobilinogen,Urine <2.0 mg/dL (<2.0); WBC,Urine 23 /hpf (0-5)
[2024-03-18] MEDS ORDERED: NALOXONE 0.4 MG/ML 1 ML VIAL IV PRN (06:32)
--- NOTE | 2024-03-18 07:28 | XR ---
EXAMINATION TYPE: XR chest 2V DATE OF EXAM: 03/18/2024 5:43 AM CLINICAL INDICATION:Male, 78 years old with history of chf?; PHH COMPARISON: Chest radiographs from [facility] TECHNIQUE: XR chest 2V Frontal and lateral views of the chest. FINDINGS: Lungs/Pleura: There is no evidence of pleural effusion, focal consolidation, or pneumothorax. Pulmonary vascularity: Pulmonary vascular congestion. Heart/mediastinum: Cardiomediastinal silhouette is enlarged and stable. Atherosclerotic calcificatio ns are seen in the aorta. Single-lead cardiac conduction device overlying the left hemithorax with le ad projecting over the right ventricle. Musculoskeletal: No acute osseous pathology. IMPRESSION: Cardiomegaly and mild pulmonary vascular congestion. Correlate with BNP for congestive heart failure.
[2024-03-18] MEDS: FUROSEMIDE 10 MG/ML 4 ML VIAL IV STA (08:37)
[2024-03-18] MEDS: ACETAMINOPHEN TAB 325 MG TAB PO PRN (09:39)
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
[2024-03-18] MEDS ORDERED: IPRATROPIUM-ALBUTEROL 3 ML NEB INHALATION PRN (13:03)
[2024-03-18] MEDS: PANTOPRAZOLE 40 MG TABLET PO SCH (13:12)
[2024-03-18] MEDS: BUDESONIDE 1 MG/2 ML NEBU INHALATION SCH (14:10)
[2024-03-18] MEDS: IPRATROPIUM-ALBUTEROL 3 ML NEB INHALATION SCH (15:32)
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
[2024-03-18] MEDS: FUROSEMIDE 10 MG/ML 4 ML VIAL IV SCH (16:39)
[2024-03-18] MEDS: ATORVASTATIN 10 MG TAB PO SCH (21:01)
[2024-03-18] MEDS: TAMSULOSIN 0.4 MG CAP.ER.24H PO SCH (21:01)
[2024-03-18] MEDS: METOPROLOL SUCCINATE (ER) 25 MG TAB.ER.24H PO SCH (21:02)
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
[2024-03-19] MEDS: allopurinoL 100 MG TAB PO SCH (08:08)
[2024-03-19] MEDS: FERROUS SULFATE 325 MG TAB PO SCH (08:08)
[2024-03-19] MEDS: DAPAGLIFLOZIN PROPANEDIOL 10 MG TABLET PO SCH (08:08)
[2024-03-19 08:32] LABS: Basophils # (A) 0 X 10*3/uL (0.00-0.10); Basophils % (A) 0 %; Eosinophils # (A) 0.06 X 10*3/uL (0.04-0.35); Eosinophils % (A) 0.9 %; HCT 26.3 % (39.6-50.0); HGB 7.7 g/dL (13.0-17.0); Lymphocytes # (A) 0.53 X 10*3/uL (0.90-5.00); Lymphocytes % (A) 7.9 %; MCH 27.2 pg (27.0-32.0); MCHC 29.3 g/dL (32.0-37.0); MCV 92.9 FL (80.0-97.0); Monocytes # (A) 0.37 X 10*3/uL (0.20-1.00); Monocytes % (A) 5.5 %; NRBC Per 100 WBC 0 X 10*3/uL (0.00-0.01); Neutrophils # (A) 5.71 X 10*3/uL (1.80-7.70); Neutrophils % (A) 85.3 %; Platelet Count 121 X 10*3/uL (140-440); RBC 2.83 X 10*6/uL (4.40-5.60); RDW 20.1 % (11.5-14.5)
[2024-03-19] MEDS ORDERED: NON FORMULARY DRUG (Omeprazole [Omeprazole] 20 MG Capsule.Dr) PO SCH (09:00)
[2024-03-19 09:07] LABS: Magnesium 2.2 mg/dL (1.5-2.4)
[2024-03-19 09:33] LABS: ALT 9 U/L (10-49); AST 19 U/L (14-35); Albumin 3.8 g/dL (3.8-4.9); Alkaline Phosphatase 106 U/L (41-126); Calcium 8.6 mg/dL (8.7-10.3); Carbon Dioxide 21.5 mmol/L (21.6-31.8); Chloride 95 mmol/L (96-109); Globulin 1.9 g/dL (1.6-3.3); Glucose 95 mg/dL (70-110); Potassium 3.5 mmol/L (3.5-5.5); Sodium 134 mmol/L (135-145); Total Bilirubin 1.1 mg/dL (0.3-1.2); Total Protein 5.7 g/dL (6.2-8.2)
[2024-03-19 10:45] LABS: African American GFR (CKD) 27 (>60 ml/min/1.73 sqM); Anion Gap 11 mmol/L; Calcium 8.4 mg/dL (8.4-10.2); Carbon Dioxide 25 mmol/L (22-30); Chloride 97 mmol/L (98-107); Glucose 108 mg/dL (74-99); Non-African American GFR(CKD) 24 (>60 ml/min/1.73 sqM); Potassium 3.3 mmol/L (3.5-5.1); Sodium 133 mmol/L (137-145)
[2024-03-19] MEDS: SODIUM FERRIC GLUCONAT-SUCROSE 125 MG in SODIUM CHLORIDE 0.9% 100 ML IVPB ONE (10:47)
[2024-03-19 11:04] LABS: Blood Urea Nitrogen 140 mg/dL (9-20)
--- NOTE | 2024-03-19 12:05 | P.PN ---
Subjective Progress Note Date: 03/19/24 Consult reason: congestive heart failure, shortness of breath Chief complaint: Shortness of breath and edema History of present illness: Patient is a pleasant 78-year-old male with significant past medical history of CAD, nonischemic cardiomyopathy, AICD implantation, persistent atrial fibrillation, hypertension, hyperlipidemia who presented to the emergency department with complaints of worsening shortness of breath, edema, and Knott malfunction. He does follow with Dr. Reid in the office. He reports that he has had a cough at home. He has been feeling more short of breath and edema over the past 1 day. There was a period yesterday where his Knott catheter was not draining. He denies any chest pain or pressure. He does report that his breathing is getting better today. His blood pressure is normally 90s/50s at home. Chest x-ray shows cardiomegaly with mild pulmonary vascular congestion. Labs reviewed: Hemoglobin 8.9, sodium 134 potassium 3.7, BUN 151, creatinine 2.65, BNP 85015. Prior echocardiogram 10/2023 with a EF 30-35%. He is on home oxygen. 03/19 Patient is seen again today in the emergency center waiting for a bed on the [facility] floor. Noted that blood pressure readings are soft this morning. He is maintained on Lasix 40 mg IV every 8 hours. Repeat blood work reveals hemoglobin 7.7. BUN 140 and creatinine 2.55. Potassium 3.3. Additional troponin was 0.071. Patient has a negative fluid balance and lower extremity edema improving. Blood pressure 88/68, heart rate 66, pulse ox 92% on 3 L nasal cannula. PHYSICAL EXAMINATION: This is a 78-year-old male in no apparent distress at the time of my examination. HEENT: Head is atraumatic, normocephalic. Pupils are equal, round. Sclerae anicteric. Conjunctivae are clear. Mucous membranes of the mouth are moist. Neck is supple. There is no jugular venous distention. No carotid bruit is heard. CHEST EXAMINATION: Lungs wheezes. No chest wall tenderness is noted on palpation or with deep breathing. HEART EXAMINATION: Heart irregular rate and rhythm. S1, S2 heard. No murmurs, gallops or rub. ABDOMEN: Soft, nontender. Bowel sounds are heard. EXTREMITIES: 2+ peripheral pulses, +1 BLE. NEUROLOGIC EXAMINATION: Patient is awake, alert and oriented x3. IMPRESSION AND PLAN: CAD nonischemic cardiomyopathy, EF 30-35% from 10/2023. AICD implantation persistent atrial fibrillation, hypertension hyperlipidemia Shortness of breath Extremity edema UTI PLAN: We will continue with IV diurectics, Lasix 40 mg every 8 hours Continue Farxiga to optimize heart failure regimen, if having more UTIs would likely need to reconsider. Monitor I&O, kidney function. We will follow. Nurse practitioner note has been reviewed, I agree with documented findings and plan of care. Patient was seen and examined. Objective - Vital Signs Vital signs: Vital Signs Temp 97.6 F 03/19/24 05:27 Pulse 50 L 03/19/24 08:00 Resp 16 03/19/24 08:00 BP 96/55 03/19/24 06:59 Pulse Ox 94 L 03/19/24 08:03 FiO2 Intake & Output 03/18/24 03/19/24 03/19/24 18:59 06:59 18:59 Intake Total 350 Output Total 1075 50 Balance -1075 300 Intake: Oral 350 Output: Urine 1075 50 Uretheral (Knott) 250 - Labs CBC & Chem 7: 03/19/24 03:04 03/19/24 10:04 Labs: Abnormal Lab Results - Last 24 Hours (Table) 03/18/24 03/19/24 Range/Units 12:56 03:04 RBC 2.83 L (4.40-5.60) X 10*6/uL Hgb 7.7 L (13.0-17.0) g/dL Hct 26.3 L (39.6-50.0) % MCHC 29.3 L (32.0-37.0) g/dL RDW 20.1 H (11.5-14.5) % Plt Count 121 L (140-440) X 10*3/uL Lymphocytes # 0.53 L (0.90-5.00) X 10*3/uL Troponin I 0.071 H* (0.000-0.034) ng/mL
--- NOTE | 2024-03-19 12:31 | P.PN ---
Subjective patient is seen for follow-up for chronic kidney disease. He is currently being diuresed. Renal function is stable with serum creatinine at about 2.5 mg/dL. Knott catheter was changed in the ER. Objective - Vital Signs Vital signs: Vital Signs Temp 97.6 F 03/19/24 05: Pulse 66 03/19/24 10:00 Resp 17 03/19/24 10:00 BP 88/68 03/19/24 10:00 Pulse Ox 92 L 03/19/24 10:00 FiO2 Intake & Output 03/18/24 03/19/24 03/19/24 18:59 06:59 18:59 Intake Total 350 Output Total 1075 50 Balance -1075 300 Intake: Oral 350 Output: Urine 1075 50 Uretheral (Knott) 250 - Exam patient is awake, comfortable, no acute distress. Examination of the heart S1 and S2 Examination of the lungs bilateral breath sounds are heard Abdomen is soft nontender Examination of lower extremities shows chronic skin changes with 1+ edema bilaterally ELL TUTOR exam grossly intact - Labs CBC & Chem 7: 03/19/24 03:04 03/19/24 10:04 Labs: Abnormal Lab Results - Last 24 Hours (Table) 03/18/24 03/19/24 03/19/24 Range/Units 12:56 03:04 03:04 RBC 2.83 L (4.40-5.60) X 10*6/uL Hgb 7.7 L (13.0-17.0) g/dL Hct 26.3 L (39.6-50.0) % MCHC 29.3 L (32.0-37.0) g/dL RDW 20.1 H (11.5-14.5) % Plt Count 121 L (140-440) X 10*3/uL Lymphocytes # 0.53 L (0.90-5.00) X 10*3/uL Sodium 134 L (135-145) mmol/L Potassium (3.5-5.1) mmol/L Chloride 95 L (96-109) mmol/L Carbon Dioxide 21.5 L (21.6-31.8) mmol/L Anion Gap 17.50 H (4.00-12.00) mmol/L BUN 134.0 A* (9.0-27.0) mg/dL Creatinine (0.66-1.25) mg/dL Glucose (74-99) mg/dL Calcium 8.6 L (8.7-10.3) mg/dL ALT 9 L (10-49) U/L Troponin I 0.071 H* (0.000-0.034) ng/mL Total Protein 5.7 L (6.2-8.2) g/dL 03/19/24 Range/Units 10:04 RBC (4.40-5.60) X 10*6/uL Hgb (13.0-17.0) g/dL Hct (39.6-50.0) % MCHC (32.0-37.0) g/dL RDW (11.5-14.5) % Plt Count (140-440) X 10*3/uL Lymphocytes # (0.90-5.00) X 10*3/uL Sodium 133 L (135-145) mmol/L Potassium 3.3 L (3.5-5.1) mmol/L Chloride 97 L (96-109) mmol/L Carbon Dioxide (21.6-31.8) mmol/L Anion Gap (4.00-12.00) mmol/L BUN 140 H* (9.0-27.0) mg/dL Creatinine 2.55 H (0.66-1.25) mg/dL Glucose 108 H (74-99) mg/dL Calcium (8.7-10.3) mg/dL ALT (10-49) U/L Troponin I (0.000-0.034) ng/mL Total Protein (6.2-8.2) g/dL Microbiology - Last 24 Hours (Table) 03/18/24 04:18 Urine Culture - Preliminary Urine,Catheterized Group D Enterococcus Assessment and Plan Assessment: 1. Acute kidney injury secondary to ATN secondary to cardiorenal syndrome. Cr eatinine recently in the range of 2.4-2.6. 2. Chronic kidney disease stage IIIa with baseline creatinine 1.3-1.4 from October and November 2023. Kidney ultrasound from March 01, 2024 showed normal-sized kidneys without any hydronephrosis. 3. Acute on chronic systolic CHF with ejection fraction of 30 to 35% with mild to moderate mitral and tricuspid vegetation and moderate pulmonary hypertension. Status post AICD. 4. Volume overload. 5. Anemia of chronic kidney disease. Rule out iron deficiency. Plan: continue to diurese patient. Continue with Knott catheter replace potassium Check stool for occult blood to rule out underlying GI bleed due to disproportionately elevated B UN
[2024-03-19 13:22] LABS: % Iron Saturation 10.6 (15.00-50.00)
--- NOTE | 2024-03-19 13:35 | P.PN ---
Subjective Progress Note Date: 03/19/24 This is a 78-year-old female patient, presented today because of worsening shortness of breath. She has known history of severe cardiomyopathy with ejection fraction of 20 to 25%, chronic kidney disease, history of nonsustained VT has an AICD in place, chronic A-fib, hypertension hyperlipidemia and obesity and previous hospitalization for decompensated heart failure, renal failure and fluid overload. The patient was last discharged from the hospital on 03/07/2024 to present back to the emergency department on 03/18/2020 forward worsening shortness of breath and decompensated heart failure. She also reports increased edema over the past 24 to 48 hours. She noticed that her Knott catheter was not draining. In October 2023, her creatinine was around 1.3-1.4. However, subsequently, there has been progressive worsening renal function and the patient currently has stage IV chronic kidney disease with a recent creatinine of 2.5. During this current admission, her creatinine was at 2.6 with a BUN of 151. Potassium level was at 3.7. White cell count is at 9.30 hemoglobin 8.9. The Knott catheter was exchanged and the patient was given IV Lasix and admitted to the hospital. She is currently on oxygen at 3 L with a pulse ox of 97% and the chest x-ray is consistent with cardiomegaly and CHF and pulmonary edema. Rest of the blood work shows a proBNP level of 39,000, troponin of 0.07, LFTs are normal, and a UA showing 23 WBCs. 22 RBCs. +1 protein. Viral screen was negative. The patient is seen today March 19, 2024 in follow-up in the emergency department. He is currently resting on a stretcher. Awake and alert in no acute distress. He is currently maintaining O2 saturations in the 90s on 3 L/min per nasal cannula. He remains on IV diuretics. Currently -1 L balance. Urine culture positive for group D Enterococcus. White count 6.7. Hemoglobin 7.7. Platelets 121. Sodium 133. Potassium 3.3. Bicarb 25. BUN 140. Creatinine 2.55. Glucose 108. He remains on ceftriaxone. Continued on heparin for DVT prophylaxis. Objective - Vital Signs Vital signs: Vital Signs Temp 97.6 F 03/19/24 05:27 Pulse 66 03/19/24 10:00 Resp 17 03/19/24 10:00 BP 88/68 05/28/24 10:00 Pulse Ox 92 L 03/19/24 10:00 FiO2 Intake & Output 03/18/24 03/19/24 03/19/24 18:59 06:59 18:59 Intake Total 350 Output Total 1075 50 Balance -1075 300 Intake: Oral 350 Output: Urine 1075 50 Uretheral (Knott) 250 - Exam GENERAL EXAM: Alert, 78-year-old male, pleasant, comfortable in no apparent distress at rest. On 3 L of O2 nasal cannula HEAD: Normocephalic and atraumatic EYES: Normal reaction of pupils, equal size. NOSE: Clear with pink turbinates. THROAT: No erythema or exudates. NECK: No masses, no JVD. CHEST: No chest wall deformity. LUNGS: Equal air entry with minimal inspiratory bibasilar crackles. No wheezing, rhonchi, or focal dullness. No conversational dyspnea. CVS: S1 and S2 normal with no audible murmur, irregular rhythm. No extra heart sounds ABDOMEN: No hepatosplenomegaly, active bowel sounds, no guarding or rigidity. Small reducible periumbilical hernia SPINE: No scoliosis or deformity SKIN: Chronic venous stasis changes of lower extremities CENTRAL NERVOUS SYSTEM: No focal deficits, tone is normal in all 4 extremities. EXTREMITIES: There is moderate bilateral lower extremity nonpitting edema. No clubbing, or cyanosis. Peripheral pulses are intact. - Labs CBC & Chem 7: 03/19/24 03:04 03/19/24 10:04 Labs: Abnormal Lab Results - Last 24 Hours (Table) 03/18/24 03/18/24 03/19/24 Range/Units 04:18 12:56 03:04 RBC (4.40-5.60) X 10*6/uL Hgb (13.0-17.0) g/dL Hct (39.6-50.0) % MCHC (32.0-37.0) g/dL RDW (11.5-14.5) % Plt Count (140-440) X 10*3/uL Lymphocytes # (0.90-5.00) X 10*3/uL Sodium 134 L (135-145) mmol/L Potassium (3.5-5.1) mmol/L Chloride 95 L (96-109) mmol/L Carbon Dioxide 21.5 L (21.6-31.8) mmol/L Anion Gap 17.50 H (4.00-12.00) mmol/L BUN 134.0 A* (9.0-27.0) mg/dL Creatinine (0.66-1.25) mg/dL Glucose (74-99) mg/dL Calcium 8.6 L (8.7-10.3) mg/dL Iron 37 L (65-175) UG/DL % Saturation 10.60 L (15.00-50.00) ALT 9 L (10-49) U/L Troponin I 0.071 H* (0.000-0.034) ng/mL Total Protein 5.7 L (6.2-8.2) g/dL 03/19/24 03/19/24 Range/Units 03:04 10:04 RBC 2.83 L (4.40-5.60) X 10*6/uL Hgb 7.7 L (13.0-17.0) g/dL Hct 26.3 L (39.6-50.0) % MCHC 29.3 L (32.0-37.0) g/dL RDW 20.1 H (11.5-14.5) % Plt Count 121 L (140-440) X 10*3/uL Lymphocytes # 0.53 L (0.90-5.00) X 10*3/uL Sodium 133 L (135-145) mmol/L Potassium 3.3 L (3.5-5.1) mmol/L Chloride 97 L (96-109) mmol/L Carbon Dioxide (21.6-31.8) mmol/L Anion Gap (4.00-12.00) mmol/L BUN 140 H* (9.0-27.0) mg/dL Creatinine 2.55 H (0.66-1.25) mg/dL Glucose 108 H (74-99) mg/dL Calcium (8.7-10.3) mg/dL Iron (65-175) UG/DL % Saturation (15.00-50.00) ALT (10-49) U/L Troponin I (0.000-0.034) ng/mL Total Protein (6.2-8.2) g/dL Microbiology - Last 24 Hours (Table) 03/18/24 04:18 Urine Culture - Preliminary Urine,Catheterized Group D Enterococcus Assessment and Plan Assessment: Acute on chronic shortness of breath secondary to decompensated systolic heart failure. Acute on chronic hypoxic respiratory failure the patient is currently on 3 L of oxygen nasal cannula Severe cardiomyopathy with an ejection fraction of 20 to 25%, a most recent echocardiogram showed some improvement in ejection fraction of 30 to 35% with severe pulm hypertension. Chronic hypoxic respiratory failure on 2 L of oxygen by nasal cannula Acute on chronic kidney injury, could be related to anatomic problems with the Knott catheter/obstruction the Knott catheter has been replaced. Nephrology on the case. ATN cannot be completely ruled out. Chronic kidney disease stage IIIa History of nonsustained VT and the patient has an AICD in place Chronic A-fib, currently on anticoagulation with Eliquis Hypertension Hyperlipidemia Obesity with a BMI of 31 Fluid overload with lower extremity and abdominal wall edema Plan: The patient was seen and evaluated Labs and medications reviewed Continue IV diuretics Titrate down the FiO2 as tolerated Nephrology is following We will continue to follow I have personally seen and examined the patient, performed the documentation and the assessment and plan as written. Number of minutes spent on the visit: 10.
--- NOTE | 2024-03-19 16:10 | P.PN ---
Subjective Progress Note Date: 03/19/24 Principal diagnosis: Reason for follow-up is a catheter associated UTI Patient is 78-year-old male with a past medical history significant for hypertension hyperlipidemia reflux COPD osteoarthritis chronic back pain, patient has been sent to the ER for Knott catheter malfunction, we did have replacement of Knott catheter patient also noticed to have a positive UA con cerning for cath versus UTI. On today's evaluation that is 03/19/2024, patient has been afebrile, patient is breathing comfortably and is currently on 3 L current oxygen patient denies having any significant cough no chest pain shortness of breath, patient denies nausea vomiting or diarrhea and no abdominal pain. Patient white count 6.70 creatinine is 2.55 culture currently growing group D Enterococcus Objective - Vital Signs Vital signs: Vital Signs Temp 97.6 F 03/19/24 05: Pulse 66 03/19/24 10:00 Resp 17 03/19/24 10:00 BP 88/68 03/19/24 10:00 Pulse Ox 92 L 03/19/24 10:00 FiO2 Intake & Output 03/18/24 03/19/24 03/19/24 18:59 06:59 18:59 Intake Total 350 Output Total 1075 50 Balance -1075 300 Intake: Oral 350 Output: Urine 1075 50 Uretheral (Knott) 250 - Exam GENERAL DESCRIPTION: An elderly male lying in bed in no distress RESPIRATORY SYSTEM: Unlabored breathing , decreased breath sounds at bases HEART: S1 S2 regular rate and rhythm , ABDOMEN: Soft , no tenderness EXTREMITIES: No edema feet - Labs CBC & Chem 7: 03/19/24 03:04 03/19/24 10:04 Labs: Abnormal Lab Results - Last 24 Hours (Table) 03/18/24 03/19/24 03/19/24 Range/Units 12:56 03:04 03:04 RBC 2.83 L (4.40-5.60) X 10*6/uL Hgb 7.7 L (13.0-17.0) g/dL Hct 26.3 L (39.6-50.0) % MCHC 29.3 L (32.0-37.0) g/dL RDW 20.1 H (11.5-14.5) % Plt Count 121 L (140-440) X 10*3/uL Lymphocytes # 0.53 L (0.90-5.00) X 10*3/uL Sodium 134 L (135-145) mmol/L Potassium (3.5-5.1) mmol/L Chloride 95 L (96-109) mmol/L Carbon Dioxide 21.5 L (21.6-31.8) mmol/L Anion Gap 17.50 H (4.00-12.00) mmol/L BUN 134.0 A* (9.0-27.0) mg/dL Creatinine (0.66-1.25) mg/dL Glucose (74-99) mg/dL Calcium 8.6 L (8.7-10.3) mg/dL ALT 9 L (10-49) U/L Troponin I 0.071 H* (0.000-0.034) ng/mL Total Protein 5.7 L (6.2-8.2) g/dL 03/19/24 Range/Units 10:04 RBC (4.40-5.60) X 10*6/uL Hgb (13.0-17.0) g/dL Hct (39.6-50.0) % MCHC (32.0-37.0) g/dL RDW (11.5-14.5) % Plt Count (140-440) X 10*3/uL Lymphocytes # (0.90-5.00) X 10*3/uL Sodium 133 L (135-145) mmol/L Potassium 3.3 L (3.5-5.1) mmol/L Chloride 97 L (96-109) mmol/L Carbon Dioxide (21.6-31.8) mmol/L Anion Gap (4.00-12.00) mmol/L BUN 140 H* (9.0-27.0) mg/dL Creatinine 2.55 H (0.66-1.25) mg/dL Glucose 108 H (74-99) mg/dL Calcium (8.7-10.3) mg/dL ALT (10-49) U/L Troponin I (0.000-0.034) ng/mL Total Protein (6.2-8.2) g/dL Microbiology - Last 24 Hours (Table) 03/18/24 04:18 Urine Culture - Preliminary Urine,Catheterized Group D Enterococcus Assessment and Plan (1) UTI (urinary tract infection) Current Visit: Yes Status: Acute Code(s): N39.0 - URINARY TRACT INFECTION, SITE NOT SPECIFIED SNOMED Code(s): 76594910 Plan: 1patient presented to hospital with multiple 25 his Knott catheter in this patient who did have a significantly positive UA some lower abdominal discomfort concerning for cystitis likely from enteric gram-negative pathogen, patient urine is growing Enterococcus with sensitivities pending 2we will discontinue Rocephin and start the patient on Unasyn while waiting for sensitivity to finalize at the bedside questions were answered Dictation was produced using [email or web address] dictation software. please excuse any grammatical, word or spelling errors. Time with Patient: Less than 30
[2024-03-19] MEDS: AMPICILLIN-SULBACTAM 3 GM in SODIUM CHLORIDE 0.9% 100 ML IVPB SCH (16:46)
[2024-03-19] MEDS: THIAMINE 100 MG TAB PO SCH (16:49)
[2024-03-19] MEDS ORDERED: ZINC OXIDE PASTE (Z-GUARD) 1 APPLIC TOPICAL PRN (18:57)
--- NOTE | 2024-03-19 20:47 | PN ---
PROGRESS NOTE DATE OF SERVICE: 03/19/2024 SUBJECTIVE: This 78-year-old gentleman was admitted with shortness of breath and COPD, CHF acute exacerbation, had some Knott catheter malfunction also. The patient is being evaluated. The patient is still short of breath. The chest x-ray from yesterday was reviewed and today's x-ray is not available. The patient has significant cardiomegaly and bilateral pleural effusions. Multiple consultants are following the patient closely. The creatinine remains elevated at 2.55, potassium is 3.3, hemoglobin is 7.7. The patient is on IV Lasix 40 mg IV q.8 at this time. PAST MEDICAL HISTORY: Reviewed. REVIEW OF SYSTEMS: A 14-point review is negative except as mentioned earlier. CURRENT MEDICATIONS: Reviewed include Rocephin, rest of medications noted. PHYSICAL EXAMINATION: VITAL SIGNS: Pulse is 66, blood pressure 88/60, and respirations 17. HEENT: Conjunctivae normal. NECK: No jugular venous distention. CARDIOVASCULAR: S1, S2. RESPIRATIONS: Diminished at the bases, few scattered rhonchi and crackles. ABDOMEN: Soft, nontender. LEGS: Bilateral leg edema. NERVOUS SYSTEM: Diffusely weak. LABORATORY DATA: Hemoglobin 7.7, rest of the labs are noted. ASSESSMENT: 1. Shortness of breath, possibly combination of COPD, CHF acute exacerbation. 2. Knott catheter malfunction. 3. Acute on chronic kidney failure and baseline chronic kidney stage 3. 4. Bilateral foot cellulitis. 5. Thrombocytopenia. 6. Anemia. 7. GERD. 8. History of DJD. 9. History of gout. 10.History of cardiac arrhythmia, AICD. 11.Multiple complex medical issues. RECOMMENDATIONS: Recommended to continue current management, continue symptomatic treatment, otherwise at this time continue with cautious diuresis, blood pressure is borderline. We will stop the metoprolol at this time and monitor fluid balance closely. DVT prophylaxis. Empiric antibiotics have been given. I also recommended consultation with Cardiology, pulmonology, Infectious Disease. Guarded prognosis. Further medical see orders for details. Repeat labs will be ordered and repeat chest x-ray also will be done in the morning. Restrict fluids to 300 cc per 24 hours. MMODL / IJN: [id number] /
[2024-03-19] MEDS: HEPARIN SODIUM,PORCINE 5,000 UNIT/ML 1 ML VIAL SQ SCH (21:25)
[2024-03-20 03:55] LABS: African American GFR (CKD) 28 (>60 ml/min/1.73 sqM); Anion Gap 12 mmol/L; Calcium 8.4 mg/dL (8.4-10.2); Carbon Dioxide 21 mmol/L (22-30); Chloride 99 mmol/L (98-107); Glucose 124 mg/dL (74-99); Magnesium 1.9 mg/dL (1.6-2.3); Non-African American GFR(CKD) 24 (>60 ml/min/1.73 sqM); Potassium 3.1 mmol/L (3.5-5.1); Sodium 132 mmol/L (137-145)
[2024-03-20 04:01] LABS: Anisocytosis Slight; Basophils % (A) 0 %; Eosinophils % (A) 0 %; HCT 27.1 % (39.0-53.0); HGB 8.2 gm/dL (13.0-17.5); Hypochromasia Marked; Lymphocytes # (A) 0.3 k/uL (1.0-4.8); Lymphocytes % (A) 4 %; MCH 27.8 pg (25.0-35.0); MCHC 30.1 g/dL (31.0-37.0); MCV 92.2 fL (80.0-100.0); Macrocytosis Slight; Mean Platelet Volume 10.7; Monocytes # (A) 0.3 k/uL (0-1.0); Monocytes % (A) 4 %; Neutrophils # (A) 6.5 k/uL (1.3-7.7); Neutrophils % (A) 90 %; Poikilocytosis Slight; RBC 2.93 m/uL (4.30-5.90); WBC 7.2 k/uL (3.8-10.6)
[2024-03-20 04:03] LABS: Platelet Count 95 k/uL (150-450)
[2024-03-20] MEDS ORDERED: Magnesium Replacement Protocol 1 EACH MISC MISCELLANE PRN (04:14)
[2024-03-20] MEDS ORDERED: Potassium Replacement Protocol 1 EACH MISC MISCELLANE PRN (04:14)
[2024-03-20 04:21] LABS: Blood Urea Nitrogen 141 mg/dL (9-20)
[2024-03-20] MEDS: POTASSIUM CHLORIDE ER 20 MEQ TAB.ER PO SCH (04:30)
--- NOTE | 2024-03-20 07:47 | XR ---
EXAMINATION TYPE: XR chest 1V portable DATE OF EXAM: 03/20/2024 COMPARISON: 03/18/2024 HISTORY: Shortness of breath TECHNIQUE: Single frontal view of the chest is obtained. FINDINGS: Cardiac device stable. Atherosclerotic change aorta with marked cardiomegaly and diffuse i nterstitial pattern. Bilateral consolidation and tiny pleural effusion. No pneumothorax. Diffuse oste openia, degenerative change of the spine and arthropathy of the shoulders. Underlying COPD and chroni c interstitial lung disease in the differential diagnosis. IMPRESSION: 1. Mild improvement of the pleural-parenchymal changes most typical of mild CHF. Underlying COPD and chronic lung disease in the differential diagnosis.
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
[2024-03-20 10:54] LABS: African American GFR (CKD) 28 (>60 ml/min/1.73 sqM); Anion Gap 10 mmol/L; Calcium 8.6 mg/dL (8.4-10.2); Carbon Dioxide 25 mmol/L (22-30); Chloride 99 mmol/L (98-107); Glucose 131 mg/dL (74-99); Non-African American GFR(CKD) 24 (>60 ml/min/1.73 sqM); Potassium 3.5 mmol/L (3.5-5.1); Sodium 134 mmol/L (137-145)
[2024-03-20] MEDS: METOPROLOL SUCCINATE (ER) 25 MG TAB.ER.24H PO SCH (11:13)
[2024-03-20] MEDS: MULTIVITAMINS, THERA 1 EACH TAB PO SCH (11:13)
[2024-03-20] MEDS: AMIODARONE 200 MG TAB PO SCH (11:13)
[2024-03-20] MEDS: SPIRONOLACTONE 25 MG TAB PO SCH (11:13)
[2024-03-20] MEDS: APIXABAN 2.5 MG TABLET PO SCH (11:13)
[2024-03-20] MEDS: BUMETANIDE 1 MG TAB PO SCH ×2 (11:14→12:44)
[2024-03-20] MEDS: FOLIC ACID 1 MG TAB PO SCH (11:14)
[2024-03-20] MEDS: AMPICILLIN-SULBACTAM 3 GM in SODIUM CHLORIDE 0.9% 100 ML IVPB SCH (11:14)
[2024-03-20 11:24] LABS: Blood Urea Nitrogen 137 mg/dL (9-20)
--- NOTE | 2024-03-20 13:35 | P.PN ---
Subjective HISTORY OF PRESENT ILLNESS: Patient is a pleasant 78-year-old male with significant past medical history of CAD, nonischemic cardiomyopathy, AICD implantation, persistent atrial fibrillation, hypertension, hyperlipidemia who presented to the emergency department with complaints of worsening shortness of breath, edema, and Knott malfunction. He does follow with Dr. Reid in the office. He reports that he has had a cough at home. He has been feeling more short of breath and edema over the past 1 day. There was a period yesterday where his Knott catheter was not draining. He denies any chest pain or pressure. He does report that his breathing is getting better today. His blood pressure is normally 90s/50s at home. Chest x-ray shows cardiomegaly with mild pulmonary vascular congestion. Labs reviewed: Hemoglobin 8.9, sodium 134 potassium 3.7, BUN 151, creatinine 2.65, BNP 47700. Prior echocardiogram 10/2023 with a EF 30-35%. He is on home oxygen. 03/19 Patient is seen again today in the emergency center waiting for a bed on the [facility] floor. Noted that blood pressure readings are soft this morning. He is maintained on Lasix 40 mg IV every 8 hours. Repeat blood work reveals hemoglobin 7.7. BUN 140 and creatinine 2.55. Potassium 3.3. Additional troponin was 0.071. Patient has a negative fluid balance and lower extremity edema improving. Blood pressure 88/68, heart rate 66, pulse ox 92% on 3 L nasal cannula. 03/20/2024 Patient examined this morning. Patient is sitting up in the chair. Patient currently denies chest pain or pressure. He denies shortness of breath. He does report lower extremity edema. The patient was receiving IV diuretics which have since been discontinued. Creatinine today 2.50. Patient did have episodes of nonsustained ventricular tachycardia overnight. Apparently his beta-carolina was discontinued upon admission due to hypotension PHYSICAL EXAM: VITAL SIGNS: Reviewed. GENERAL: Well-developed in no acute distress. NECK: Supple. No JVD or thyromegaly LUNGS: Respirations even and unlabored. Lungs essentially clear to auscultation bilaterally. HEART: Regular rate and rhythm. S1 and S2 heard. EXTREMITIES: Normal range of motion. No clubbing or cyanosis. Peripheral pulse s intact. No lower extremity edema ASSESSMENT: Urinary retention Nonsustained ventricular tachycardia Acute heart failure with reduced EF Nonischemic cardiomyopathy, EF 30-35% from 10/2023. AICD implantation Persistent atrial fibrillation Hypertension Hyperlipidemia Chronic hypoxic respiratory failure on home oxygen Acute on chronic kidney disease PLAN: Resume Eliquis Add amiodarone 200 mg daily due to ventricular tachycardia Add metoprolol succinate 12.5 mg daily Resume oral diuretics. Increase dosage to 2 mg twice a day per Dr. Medina Add Aldactone 25 mg daily Continue telemetry monitoring Further recommendations pending patient course Nurse practitioner note has been reviewed by physician. Signing provider agrees with the documented findings, assessment, and plan of care documented by PHOTOGRAPHIC LITHOGRAPHER as a scribe. Objective - Vital Signs Vital signs: Vital Signs Temp 97.6 F 03/20/24 11:03 Pulse 63 03/20/24 11:03 Resp 20 03/20/24 11:03 BP 107/59 03/20/24 11:03 Pulse Ox 100 03/20/24 11:03 FiO2 Intake & Output 03/19/24 03/20/24 03/20/24 18:59 06:59 18:59 Intake Total 800 240 250 Output Total 550 450 Balance 250 -210 250 Weight 107.048 kg Intake: Intake, IV Titration 250 Amount Ampicillin-Sulbactam 3 gm 100 In Sodium Chloride 0.9% 100 ml @ 200 mls/hr IVPB Q8HR [facility] Rx#:[id number] Sodium Ferric Gluconat- 100 Sucrose 125 mg In Sodium Chloride 0.9% 100 ml @ 100 mls/hr IVPB ONCE ONE Rx#:[id number] cefTRIAXone 1 gm In 50 Sodium Chloride 0.9% 50 ml @ 100 mls/hr IVPB Q24HR [facility] Rx#:[id number] Oral 550 240 250 Output: Urine 550 450 Other: Voiding Method Indwelling Catheter Indwelling Catheter - Labs CBC & Chem 7: 03/20/24 03:02 03/20/24 09:57 Labs: Abnormal Lab Results - Last 24 Hours (Table) 03/19/24 03/20/24 03/20/24 Range/Units 03:04 03:02 03:02 RBC 2.93 L (4.30-5.90) m/uL Hgb 8.2 L (13.0-17.5) gm/dL Hct 27.1 L (39.0-53.0) % MCHC 30.1 L (31.0-37.0) g/dL RDW 20.0 H (11.5-15.5) % Plt Count 95 L (150-450) k/uL Lymphocytes # 0.3 L (1.0-4.8) k/uL Sodium 132 L (137-145) mmol/L Potassium 3.1 L (3.5-5.1) mmol/L Carbon Dioxide 21 L (22-30) mmol/L BUN 134.0 A* 141 H* (9.0-27.0) mg/dL Creatinine 2.8 H 2.51 H (0.6-1.5) mg/dL Est GFR (CKD-EPI) 23 L (>=60) Glucose 124 H (74-99) mg/dL 03/20/24 Range/Units 09:57 RBC (4.30-5.90) m/uL Hgb (13.0-17.5) gm/dL Hct (39.0-53.0) % MCHC (31.0-37.0) g/dL RDW (11.5-15.5) % Plt Count (150-450) k/uL Lymphocytes # (1.0-4.8) k/uL Sodium 134 L (137-145) mmol/L Potassium (3.5-5.1) mmol/L Carbon Dioxide (22-30) mmol/L BUN 137 H* (9.0-27.0) mg/dL Creatinine 2.50 H (0.6-1.5) mg/dL Est GFR (CKD-EPI) (>=60) Glucose 131 H (74-99) mg/dL Microbiology - Last 24 Hours (Table) 03/18/24 04:18 Urine Culture - Final Urine,Catheterized Enterococcus faecium VRE 03/18/24 14:33 Blood Culture - Preliminary Blood
--- NOTE | 2024-03-20 15:33 | P.PN ---
Subjective Progress Note Date: 03/20/24 This is a 78-year-old female patient, presented today because of worsening shortness of breath. She has known history of severe cardiomyopathy with ejection fraction of 20 to 25%, chronic kidney disease, history of nonsustained VT has an AICD in place, chronic A-fib, hypertension hyperlipidemia and obesity and previous hospitalization for decompensated heart failure, renal failure and fluid overload. The patient was last discharged from the hospital on 03/07/2024 to present back to the emergency department on 03/18/2020 forward worsening shortness of breath and decompensated heart failure. She also reports increased edema over the past 24 to 48 hours. She noticed that her Knott catheter was not draining. In October 2023, her creatinine was around 1.3-1.4. However, subsequently, there has been progressive worsening renal function and the patient currently has stage IV chronic kidney disease with a recent creatinine of 2.5. During this current admission, her creatinine was at 2.6 with a BUN of 151. Potassium level was at 3.7. White cell count is at 9.30 hemoglobin 8.9. The Knott catheter was exchanged and the patient was given IV Lasix and admitted to the hospital. She is currently on oxygen at 3 L with a pulse ox of 97% and the chest x-ray is consistent with cardiomegaly and CHF and pulmonary edema. Rest of the blood work shows a proBNP level of 39,000, troponin of 0.07, LFTs are normal, and a UA showing 23 WBCs. 22 RBCs. +1 protein. Viral screen was negative. The patient is seen today March 19, 2024 in follow-up in the emergency department. He is currently resting on a stretcher. Awake and alert in no acute distress. He is currently maintaining O2 saturations in the 90s on 3 L/min per nasal cannula. He remains on IV diuretics. Currently -1 L balance. Urine culture positive for group D Enterococcus. White count 6.7. Hemoglobin 7.7. Platelets 121. Sodium 133. Potassium 3.3. Bicarb 25. BUN 140. Creatinine 2.55. Glucose 108. He remains on ceftriaxone. Continued on heparin for DVT prophylaxis. The patient is seen today March 20, 2024 in follow-up on the selective care unit. He is currently sitting up in a chair at the bedside. Awake and alert in no acute distress. Feeling quite a bit better today compared to yesterday. He is maintaining O2 saturations in the upper 90s on 3 L/min per nasal cannula. Chest x-ray showing mild improvement of the pleural parenchymal changes most typical of mild CHF. Underlying COPD and chronic lung disease noted. Urine culture is positive for Enterococcus faecium VRE. Blood culture pending. White count 7.2. Hemoglobin 8.2. Platelets 95,000. Sodium 134. Potassium 3.5. Bicarb 25. BUN 137. Creatinine 2.50. Glucose 131. He is continued on Eliquis, Bumex 2 mg twice daily and antibiotics in the form of Unasyn. He is not currently on a +40 mL balance. Indwelling catheter remains in place. Objective - Vital Signs Vital signs: Vital Signs Temp 97.6 F 03/20/24 11:03 Pulse 63 03/20/24 14:08 Resp 20 03/20/24 11:03 BP 107/59 03/20/24 11:03 Pulse Ox 100 03/20/24 11:03 FiO2 Intake & Output 03/19/24 03/20/24 03/20/24 18:59 06:59 18:59 Intake Total 800 240 368 Output Total 550 450 Balance 250 -210 368 Weight 107.048 kg Intake: Intake, IV Titration 250 Amount Ampicillin-Sulbactam 3 gm 100 In Sodium Chloride 0.9% 100 ml @ 200 mls/hr IVPB Q8HR [facility] Rx#:[id number] Sodium Ferric Gluconat- 100 Sucrose 125 mg In Sodium Chloride 0.9% 100 ml @ 100 mls/hr IVPB ONCE ONE Rx#:[id number] cefTRIAXone 1 gm In 50 Sodium Chloride 0.9% 50 ml @ 100 mls/hr IVPB Q24HR [facility] Rx#:[id number] Oral 550 240 368 Output: Urine 550 450 Other: Voiding Method Indwelling Catheter Indwelling Catheter - Exam GENERAL EXAM: Alert, pleasant 78-year-old male, up in a chair, comfortable in no apparent distress at rest. On 3 L of O2 nasal cannula HEAD: Normocephalic and atraumatic EYES: Normal reaction of pupils, equal size. NOSE: Clear with pink turbinates. THROAT: No erythema or exudates. NECK: No masses, no JVD. CHEST: No chest wall deformity. LUNGS: Equal air entry with minimal inspiratory bibasilar crackles. No wheezing, rhonchi, or focal dullness. No conversational dyspnea. CVS: S1 and S2 normal with no audible murmur, irregular rhythm. No extra heart sounds ABDOMEN: No hepatosplenomegaly, active bowel sounds, no guarding or rigidity. Small reducible periumbilical hernia SPINE: No scoliosis or deformity SKIN: Chronic venous stasis changes of lower extremities CENTRAL NERVOUS SYSTEM: No focal deficits, tone is normal in all 4 extremities. EXTREMITIES: There is moderate bilateral lower extremity nonpitting edema. No clubbing, or cyanosis. Peripheral pulses are intact. - Labs CBC & Chem 7: 03/20/24 03:02 03/20/24 09:57 Labs: Abnormal Lab Results - Last 24 Hours (Table) 03/19/24 03/20/24 03/20/24 Range/Units 03:04 03:02 03:02 RBC 2.93 L (4.30-5.90) m/uL Hgb 8.2 L (13.0-17.5) gm/dL Hct 27.1 L (39.0-53.0) % MCHC 30.1 L (31.0-37.0) g/dL RDW 20.0 H (11.5-15.5) % Plt Count 95 L (150-450) k/uL Lymphocytes # 0.3 L (1.0-4.8) k/uL Sodium 132 L (137-145) mmol/L Potassium 3.1 L (3.5-5.1) mmol/L Carbon Dioxide 21 L (22-30) mmol/L BUN 134.0 A* 141 H* (9.0-27.0) mg/dL Creatinine 2.8 H 2.51 H (0.6-1.5) mg/dL Est GFR (CKD-EPI) 23 L (>=60) Glucose 124 H (74-99) mg/dL 03/20/24 Range/Units 09:57 RBC (4.30-5.90) m/uL Hgb (13.0-17.5) gm/dL Hct (39.0-53.0) % MCHC (31.0-37.0) g/dL RDW (11.5-15.5) % Plt Count (150-450) k/uL Lymphocytes # (1.0-4.8) k/uL Sodium 134 L (137-145) mmol/L Potassium (3.5-5.1) mmol/L Carbon Dioxide (22-30) mmol/L BUN 137 H* (9.0-27.0) mg/dL Creatinine 2.50 H (0.6-1.5) mg/dL Est GFR (CKD-EPI) (>=60) Glucose 131 H (74-99) mg/dL Microbiology - Last 24 Hours (Table) 03/18/24 04:18 Urine Culture - Final Urine,Catheterized Enterococcus faecium VRE 03/18/24 14:33 Blood Culture - Preliminary Blood Assessment and Plan Assessment: Acute on chronic hypoxic respiratory failure secondary to an acute exacerbation of chronic systolic congestive heart failure Severe cardiomyopathy with an ejection fraction of 20 to 25%, a most recent echocardiogram showed some improvement in ejection fraction of 30 to 35% with severe pulm hypertension. Chronic hypoxic respiratory failure secondary to above on 2 L of oxygen by nasal cannula Acute on chronic kidney injury, could be related to anatomic problems with the Knott catheter/obstruction the Knott catheter has been replaced. ATN cannot be completely ruled out. Chronic kidney disease stage IIIa History of nonsustained VT and the patient has an AICD in place Chronic atrial fibrillation, currently on anticoagulation with Eliquis Hypertension Hyperlipidemia Obesity with a BMI of 31.1 Fluid overload with lower extremity and abdominal wall edema Plan: The patient was seen and evaluated Chest x-ray, labs and medications reviewed Transitioned to diuretics Titrate down the FiO2 as tolerated Increase his activity as tolerated We will continue to follow I have personally seen and examined the patient, performed the documentation and the assessment and plan as written. Number of minutes spent on the visit: 10.
--- NOTE | 2024-03-20 18:34 | CDI ---
Documentation Clarification Form Date: 03/20/2024 05:58:05 PM From: Jillian Saxena RN, CCDS Phone: [phone] Admit Date: 03/18/2024 01:06:00 PM Patient Name: Kristel Harris Visit Number: [id number] Discharge Date: ATTENTION: The Clinical Documentation Specialists (CDI) and [facility] Coding Staff appreciate your assistance in clarifying documentation. Please respond to the clarification below the line at the bottom and electronically sign. The CDI & [facility] Coding staff will review the response and follow-up if needed. Please note: Queries are made part of the Legal Health Record. If you have any questions, please contact the author of this message via ITS. Dr. Gilbert Tellez UTI is documented in the ID Consult and ongoing progress notes and patient present with Knott catheter malfunction. Additional clarification regarding the etiology of the UTI is requested. History/Risk Factors: COPD, GERD/Reflux, Hyperlipidemia, Hypertension, Osteoarthritis, Former smoker Clinical Indicators: 78-year-old male sent to the ER for Knott catheter malfunction which apparently has not been draining since the night before. He was complaining of lower abdominal pain. 03/18: Urinalysis: Leukocyte Esterase Large, Urine WBC 23, Urine Bacteria Occasional High, 03/18 Urine culture: Enterococcus faecium VRE 03/18 Lab results: WBC 9.2, HGB 8.9, HCT 29.7 Neutrophils 8.3, BUN 151, Creatine 2.65 03/19 ID progress notes: Reason for follow-up is a catheter associated UTI. Knott catheter in this patient who did have a significantly positive UA some lower abdominal discomfort concerning for cystitis likely from enteric gram-negative pathogen, patient urine is growing Enterococcus with sensitivities pending. Treatment: Daptomycin 400 MG IVPB Q 24 HRS 03/20 Unasyn 3 GM IVPB Q 8 HRS Rocephin 1 GM IVPB Q 24 HRS 03/18-03/19 Please clarify the etiology of the UTI, if known: [ ] UTI due to Knott catheter, present on admission [ ] Other condition, please specify [ ] Unable to determine (Template Last Revised: December 2020) Unable to determine MTDD
--- NOTE | 2024-03-20 21:28 | P.PN ---
Subjective patient is seen for follow-up for chronic kidney disease. He is currently being diuresed. Renal function is stable with serum creatinine at about 2.5 mg/dL. BUN disproportionately elevated. No signs of active GI bleed. Patient is not maintained on steroids. Knott catheter was changed in the ER. Urine output at 1 L for 24 hours. Appetite is poor. Discussed with patient regarding possibly starting renal replacement therapy if no further improvement in renal function or volume status. Objective - Vital Signs Vital signs: Vital Signs Temp 97.5 F L 03/20/24 16:03 Pulse 65 03/20/24 16:03 Resp 18 03/20/24 16:03 BP 110/56 03/20/24 16:03 Pulse Ox 97 03/20/24 16:03 FiO2 Intake & Output 03/20/24 03/20/24 03/21/24 06:59 18:59 06:59 Intake Total 240 486 Output Total 450 500 Balance -210 -14 Weight 107.048 kg Intake: Oral 240 486 Output: Urine 450 500 Other: Voiding Method Indwelling Catheter Indwelling Catheter - Exam patient is awake, comfortable, no acute distress. Examination of the heart S1 and S2 Examination of the lungs bilateral breath sounds are heard Abdomen is soft nontender Examination of lower extremities shows chronic skin changes with 2+ edema bilaterally [employer] exam grossly intact - Labs CBC & Chem 7: 03/20/24 03:02 03/20/24 09:57 Labs: Abnormal Lab Results - Last 24 Hours (Table) 03/19/24 03/20/24 03/20/24 Range/Units 03:04 03:02 03:02 RBC 2.93 L (4.30-5.90) m/uL Hgb 8.2 L (13.0-17.5) gm/dL Hct 27.1 L (39.0-53.0) % MCHC 30.1 L (31.0-37.0) g/dL RDW 20.0 H (11.5-15.5) % Plt Count 95 L (150-450) k/uL Lymphocytes # 0.3 L (1.0-4.8) k/uL Sodium 132 L (137-145) mmol/L Potassium 3.1 L (3.5-5.1) mmol/L Carbon Dioxide 21 L (22-30) mmol/L BUN 134.0 A* 141 H* (9.0-27.0) mg/dL Creatinine 2.8 H 2.51 H (0.6-1.5) mg/dL Est GFR (CKD-EPI) 23 L (>=60) Glucose 124 H (74-99) mg/dL 03/20/24 Range/Units 09:57 RBC (4.30-5.90) m/uL Hgb (13.0-17.5) gm/dL Hct (39.0-53.0) % MCHC (31.0-37.0) g/dL RDW (11.5-15.5) % Plt Count (150-450) k/uL Lymphocytes # (1.0-4.8) k/uL Sodium 134 L (137-145) mmol/L Potassium (3.5-5.1) mmol/L Carbon Dioxide (22-30) mmol/L BUN 137 H* (9.0-27.0) mg/dL Creatinine 2.50 H (0.6-1.5) mg/dL Est GFR (CKD-EPI) (>=60) Glucose 131 H (74-99) mg/dL Microbiology - Last 24 Hours (Table) 03/18/24 04:18 Urine Culture - Final Urine,Catheterized Enterococcus faecium VRE 03/18/24 14:33 Blood Culture - Preliminary Blood Assessment and Plan Assessment: 1. Acute kidney injury secondary to ATN secondary to cardiorenal syndrome. Creatinine recently in the range of 2.4-2.6. BUN is disproportionately elevated. Consider underlying GI bleed. Discussed with patient that he may need to start renal replacement therapy if no further improvement in renal function and volume status. 2. Chronic kidney disease stage IIIa with baseline creatinine 1.3-1.4 from October and November 2023. Kidney ultrasound from March 01, 2024 showed normal- sized kidneys without any hydronephrosis. 3. Acute on chronic systolic CHF with ejection fraction of 30 to 35% with mild to moderate mitral and tricuspid vegetation and moderate pulmonary hypertension. Status post AICD. 4. Volume overload. 5. Anemia of chronic kidney disease. Iron deficiency noted. Status post 1 dose of IV iron. Plan: continue to diurese patient. Consider adding inotropic agents to improve diuresis and renal function. Add another dose of IV iron. Continue with Knott catheter replace potassium Check stool for occult blood to rule out underlying GI bleed due to disproportionately elevated B UN
[2024-03-20] MEDS ORDERED: SODIUM FERRIC GLUCONAT-SUCROSE 125 MG in SODIUM CHLORIDE 0.9% 100 ML IVPB ONE (22:00)
--- NOTE | 2024-03-20 22:21 | PN ---
PROGRESS NOTE DATE OF SERVICE: 03/20/2024 SUBJECTIVE: This is a 78-year-old gentleman who was admitted with shortness of breath in combination with COPD, CHF acute exacerbation, was on intravenous diuretics now. The patient is on p.o. Bumex at this time. Chest x-ray showed some improvement. OBJECTIVE: VITAL SIGNS: Pulse 63, blood pressure n, respirations 20. CHEST: Few scattered rhonchi and crackles. CARDIOVASCULAR: S1, S2. ABDOMEN: Soft, nontender. LABORATORY DATA: Potassium 3.5, creatinine is 2.5. ASSESSMENT: 1. Shortness of breath, possibly multifactorial, combination of COPD, CHF acute exacerbation. 2. Knott catheter malfunction. 3. Acute on chronic kidney failure and baseline chronic kidney disease, stage III. 4. Bilateral foot cellulitis. 5. Thrombocytopenia. 6. Anemia. 7. GERD. 8. History of DJD. 9. History of gout. 10.History of cardiac arrhythmia, AICD. 11.Multiple complex medical issues. RECOMMENDATIONS: Recommended to continue current medications, continue symptomatic treatment. Increase ambulation. Repeat labs. Continue the diuretics. Closely follow with multiple consultants. Prognosis guarded. Further recommendations to follow. MMODL / IJN: [id number] / ANSHU
[2024-03-21] MEDS: SODIUM FERRIC GLUCONAT-SUCROSE 125 MG in SODIUM CHLORIDE 0.9% 100 ML IVPB ONE (00:20)
[2024-03-21 09:40] LABS: Anisocytosis Slight; Basophils % (A) 0 %; Eosinophils % (A) 1 %; HGB 8.2 gm/dL (13.0-17.5); Hypochromasia Marked; Lymphocytes # (A) 0.3 k/uL (1.0-4.8); Lymphocytes % (A) 7 %; MCH 27.6 pg (25.0-35.0); MCHC 29.2 g/dL (31.0-37.0); MCV 94.4 fL (80.0-100.0); Macrocytosis Slight; Mean Platelet Volume 11.9; Monocytes # (A) 0.2 k/uL (0-1.0); Monocytes % (A) 4 %; Neutrophils # (A) 4.2 k/uL (1.3-7.7); Neutrophils % (A) 86 %; Poikilocytosis Slight; RBC 2.96 m/uL (4.30-5.90); RDW 19.8 % (11.5-15.5); WBC 4.8 k/uL (3.8-10.6)
[2024-03-21 10:01] LABS: African American GFR (CKD) 26 (>60 ml/min/1.73 sqM); Anion Gap 10 mmol/L; Calcium 8.4 mg/dL (8.4-10.2); Carbon Dioxide 24 mmol/L (22-30); Chloride 99 mmol/L (98-107); Glucose 125 mg/dL (74-99); Non-African American GFR(CKD) 22 (>60 ml/min/1.73 sqM); Potassium 3.6 mmol/L (3.5-5.1); Sodium 133 mmol/L (137-145)
[2024-03-21 10:03] LABS: Platelet Count 88 k/uL (150-450)
[2024-03-21 10:16] LABS: Blood Urea Nitrogen 137 mg/dL (9-20)
[2024-03-21] MEDS: DARBEPOETIN ALFA 40 MCG/0.4 ML SYRINGE SQ SCH (12:09)
--- NOTE | 2024-03-21 13:19 | P.PN ---
Subjective Progress Note Date: 03/20/24 Principal diagnosis: Reason for follow-up is a catheter associated UTI Patient is 78-year-old male with a past medical history significant for hypertension hyperlipidemia reflux COPD osteoarthritis chronic back pain, patient has been sent to the ER for Knott catheter malfunction, we did have replacement of Knott catheter patient also noticed to have a positive UA con cerning for cath versus UTI. On today's evaluation that is 03/20/2024,the patient denies any fever or any chills, patient is breathing comfortably on 3 L nasal cannula oxygen the patient denies chest pain shortness of breath and no significant cough, patient denies abdominal pain, no nausea vomiting or diarrhea. No new symptoms Patient white count is 7.2, creatinine is 2.51 urine culture finalized with VRE resistant to ampicillin Objective - Vital Signs Vital signs: Vital Signs Temp 97.6 F 03/20/24 11:03 Pulse 63 03/20/24 14:08 Resp 20 03/20/24 11:03 BP 107/59 03/20/24 11:03 Pulse Ox 100 03/20/24 11:03 FiO2 Intake & Output 03/19/24 03/20/24 03/20/24 18:59 06:59 18:59 Intake Total 800 240 368 Output Total 550 450 Balance 250 -210 368 Weight 107.048 kg Intake: Intake, IV Titration 250 Amount Ampicillin-Sulbactam 3 gm 100 In Sodium Chloride 0.9% 100 ml @ 200 mls/hr IVPB Q8HR [facility] Rx#:[id number] Sodium Ferric Gluconat- 100 Sucrose 125 mg In Sodium Chloride 0.9% 100 ml @ 100 mls/hr IVPB ONCE ONE Rx#:[id number] cefTRIAXone 1 gm In 50 Sodium Chloride 0.9% 50 ml @ 100 mls/hr IVPB Q24HR [facility] Rx#:[id number] Oral 550 240 368 Output: Urine 550 450 Other: Voiding Method Indwelling Catheter Indwelling Catheter - Exam GENERAL DESCRIPTION: An elderly male lying in bed in no distress RESPIRATORY SYSTEM: Unlabored breathing , decreased breath sounds at bases HEART: S1 S2 regular rate and rhythm , ABDOMEN: Soft , no tenderness EXTREMITIES: No edema feet - Labs CBC & Chem 7: 03/21/24 09:07 03/21/24 09:07 Labs: Abnormal Lab Results - Last 24 Hours (Table) 03/19/24 03/20/24 03/20/24 Range/Units 03:04 03:02 03:02 RBC 2.93 L (4.30-5.90) m/uL Hgb 8.2 L (13.0-17.5) gm/dL Hct 27.1 L (39.0-53.0) % MCHC 30.1 L (31.0-37.0) g/dL RDW 20.0 H (11.5-15.5) % Plt Count 95 L (150-450) k/uL Lymphocytes # 0.3 L (1.0-4.8) k/uL Sodium 132 L (137-145) mmol/L Potassium 3.1 L (3.5-5.1) mmol/L Carbon Dioxide 21 L (22-30) mmol/L BUN 134.0 A* 141 H* (9.0-27.0) mg/dL Creatinine 2.8 H 2.51 H (0.6-1.5) mg/dL Est GFR (CKD-EPI) 23 L (>=60) Glucose 124 H (74-99) mg/dL 03/20/24 Range/Units 09:57 RBC (4.30-5.90) m/uL Hgb (13.0-17.5) gm/dL Hct (39.0-53.0) % MCHC (31.0-37.0) g/dL RDW (11.5-15.5) % Plt Count (150-450) k/uL Lymphocytes # (1.0-4.8) k/uL Sodium 134 L (137-145) mmol/L Potassium (3.5-5.1) mmol/L Carbon Dioxide (22-30) mmol/L BUN 137 H* (9.0-27.0) mg/dL Creatinine 2.50 H (0.6-1.5) mg/dL Est GFR (CKD-EPI) (>=60) Glucose 131 H (74-99) mg/dL Microbiology - Last 24 Hours (Table) 03/18/24 04:18 Urine Culture - Final Urine,Catheterized Enterococcus faecium VRE 03/18/24 14:33 Blood Culture - Preliminary Blood Assessment and Plan (1) UTI (urinary tract infection) Current Visit: Yes Status: Acute Code(s): N39.0 - URINARY TRACT INFECTION, SITE NOT SPECIFIED SNOMED Code(s): 71023874 Plan: 1patient presented to hospital with multiple 25 his Knott catheter in this patient who did have a significantly positive UA some lower abdominal discomfort concerning for cystitis likely from enteric gram-negative pathogen, patient urine is growing Enterococcus which has been finalized as VRE 2we will discontinue Unasyn and start patient on daptomycin and monitor clinical course closely Dictation was produced using [employer] dictation software. please excuse any grammatical, word or spelling errors. Time with Patient: Less than 30
--- NOTE | 2024-03-21 13:20 | P.PN ---
Subjective Progress Note Date: 03/21/24 Principal diagnosis: Reason for follow-up is a catheter associated UTI Patient is 78-year-old male with a past medical history significant for hypertension hyperlipidemia reflux COPD osteoarthritis chronic back pain, patient has been sent to the ER for Knott catheter malfunction, we did have replacement of Knott catheter patient also noticed to have a positive UA con cerning for cath versus UTI. On today's evaluation that is 03/21/2024,the patient remains to be afebrile, patient is on 2 L nasal cannula supplemental oxygen and denies any shortness of breath no chest pain or cough.Patient denies having any nausea or vomiting, no abdominal pain and no diarrhea, patient Knott has been discontinued patient mention he was able to urinate. Patient white count is 4.8 creatinine is 2.66 blood culture negative Objective - Vital Signs Vital signs: Vital Signs Temp 97.7 F 03/21/24 08:38 Pulse 61 03/21/24 11:32 Resp 17 03/21/24 11:32 BP 126/93 03/21/24 12:08 Pulse Ox 94 L 03/21/24 11:32 FiO2 Intake & Output 03/20/24 03/21/24 03/21/24 18:59 06:59 18:59 Intake Total 486 120 236 Output Total 500 500 400 Balance -14 -380 -164 Weight 104.8 kg Intake: Oral 486 120 236 Output: Urine 500 500 400 Other: Voiding Method Indwelling Catheter Indwelling Catheter - Exam GENERAL DESCRIPTION: An elderly male lying in bed in no distress RESPIRATORY SYSTEM: Unlabored breathing , decreased breath sounds at bases HEART: S1 S2 regular rate and rhythm , ABDOMEN: Soft , no tenderness EXTREMITIES: No edema feet - Labs CBC & Chem 7: 03/21/24 09:07 03/21/24 09:07 Labs: Abnormal Lab Results - Last 24 Hours (Table) 03/21/24 03/21/24 Range/Units 09:07 09:07 RBC 2.96 L (4.30-5.90) m/uL Hgb 8.2 L (13.0-17.5) gm/dL Hct 28.0 L (39.0-53.0) % MCHC 29.2 L (31.0-37.0) g/dL RDW 19.8 H (11.5-15.5) % Plt Count 88 L (150-450) k/uL Lymphocytes # 0.3 L (1.0-4.8) k/uL Sodium 133 L (137-145) mmol/L BUN 137 H* (9-20) mg/dL Creatinine 2.66 H (0.66-1.25) mg/dL Glucose 125 H (74-99) mg/dL Microbiology - Last 24 Hours (Table) 03/18/24 14:33 Blood Culture - Preliminary Blood 03/18/24 04:18 Urine Culture - Final Urine,Catheterized Enterococcus faecium VRE Assessment and Plan (1) UTI (urinary tract infection) Current Visit: Yes Status: Acute Code(s): N39.0 - URINARY TRACT INFECTION, SITE NOT SPECIFIED SNOMED Code(s): 25976779 Plan: 1patient presented to hospital with multiple 25 his Knott catheter in this patient who did have a significantly positive UA some lower abdominal discomfort concerning for cystitis likely from enteric gram-negative pathogen, patient urine is growing Enterococcus which has been finalized as VRE 2patient to continue with daptomycin while inpatient hopefully finishing therapy with oral Zyvox Dictation was produced using [employer] dictation software. please excuse any grammatical, word or spelling errors. Time with Patient: Less than 30
--- NOTE | 2024-03-21 15:37 | P.PN ---
Subjective patient is seen for follow-up for chronic kidney disease. He is currently being diuresed. Renal function is stable with serum creatinine at about 2.5 mg/dL. Serum creatinine increased to 2.6 today. BUN disproportionately elevated. No signs of active GI bleed. Patient is not maintained on steroids. Knott catheter was changed in the ER. Urine output at 1 L for 24 hours. Appetite was poor yesterday but seems to have improved today. Discussed with patient regarding possibly starting renal replacement therapy if no further improvement in renal function or volume status. Objective - Vital Signs Vital signs: Vital Signs Temp 97.7 F 03/21/24 08:38 Pulse 61 03/21/24 11:32 Resp 17 03/21/24 11:32 BP 126/93 03/21/24 12:08 Pulse Ox 94 L 03/21/24 11:32 FiO2 Intake & Output 03/20/24 03/21/24 03/21/24 18:59 06:59 18:59 Intake Total 486 120 236 Output Total 500 500 650 Balance -14 -380 -414 Weight 104.8 kg 104.8 kg Intake: Oral 486 120 236 Output: Urine 500 500 650 Other: Voiding Method Indwelling Catheter Indwelling Catheter # Voids 1 - Exam patient is awake, comfortable, no acute distress. Examination of the heart S1 and S2 Examination of the lungs bilateral breath sounds are heard Abdomen is soft nontender Examination of lower extremities shows chronic skin changes with 2+ edema bilaterally [employer] exam grossly intact - Labs CBC & Chem 7: 03/21/24 09:07 03/21/24 09:07 Labs: Abnormal Lab Results - Last 24 Hours (Table) 03/21/24 03/21/24 Range/Units 09:07 09:07 RBC 2.96 L (4.30-5.90) m/uL Hgb 8.2 L (13.0-17.5) gm/dL Hct 28.0 L (39.0-53.0) % MCHC 29.2 L (31.0-37.0) g/dL RDW 19.8 H (11.5-15.5) % Plt Count 88 L (150-450) k/uL Lymphocytes # 0.3 L (1.0-4.8) k/uL Sodium 133 L (137-145) mmol/L BUN 137 H* (9-20) mg/dL Creatinine 2.66 H (0.66-1.25) mg/dL Glucose 125 H (74-99) mg/dL Microbiology - Last 24 Hours (Table) 03/18/24 14:33 Blood Culture - Preliminary Blood Assessment and Plan Assessment: 1. Acute kidney injury secondary to ATN secondary to cardiorenal syndrome. Creatinine recently in the range of 2.4-2.6. BUN is disproportionately elevated. Consider underlying GI bleed. Discussed with patient that he may need to start renal replacement therapy if no further improvement in renal function and volume status. 2. Chronic kidney disease stage IIIa with baseline creatinine 1.3-1.4 from October and November 2023. Kidney ultrasound from March 01, 2024 showed normal- sized kidneys without any hydronephrosis. 3. Acute on chronic systolic CHF with ejection fraction of 30 to 35% with mild to moderate mitral and tricuspid vegetation and moderate pulmonary hypertension. Status post AICD. 4. Volume overload. 5. Anemia of chronic kidney disease. Iron deficiency noted. Status post 1 dose of IV iron. rule out GI bleed Plan: continue to diurese patient. Consider adding inotropic agents to improve diuresis and renal function. Continue with Knott catheter Check stool for occult blood to rule out underlying GI bleed due to disproportionately elevated B UN
--- NOTE | 2024-03-21 16:11 | P.PN ---
Subjective Progress Note Date: 03/21/24 Principal diagnosis: Acute on chronic hypoxic respiratory failure secondary to acute exacerbation of chronic systolic congestive heart failure with severe cardiomyopathy ejection f raction of 20 to 25% This is a 78-year-old female patient, presented today because of worsening sh ortness of breath. She has known history of severe cardiomyopathy with ejection fraction of 20 to 25%, chronic kidney disease, history of nonsustained VT has an AICD in place, chronic A-fib, hypertension hyperlipidemia and obesity and previous hospitalization for decompensated heart failure, renal failure and fluid overload. The patient was last discharged from the hospital on 03/07/2024 to present back to the emergency department on 03/18/2020 forward worsening shortness of breath and decompensated heart failure. She also reports increased edema over the past 24 to 48 hours. She noticed that her Knott catheter was not draining. In October 2023, her creatinine was around 1.3-1.4. However, subsequently, there has been progressive worsening renal function and the patient currently has stage IV chronic kidney disease with a recent creatinine of 2.5. During this current admission, her creatinine was at 2.6 with a BUN of 151. Potassium level was at 3.7. White cell count is at 9.30 hemoglobin 8.9. The Knott catheter was exchanged and the patient was given IV Lasix and admitted to the hospital. She is currently on oxygen at 3 L with a pulse ox of 97% and the chest x-ray is consistent with cardiomegaly and CHF and pulmonary edema. Rest of the blood work shows a proBNP level of 39,000, troponin of 0.07, LFTs are normal, and a UA showing 23 WBCs. 22 RBCs. +1 protein. Viral screen was negative. The patient is seen today March 19, 2024 in follow-up in the emergency department. He is currently resting on a stretcher. Awake and alert in no acute distress. He is currently maintaining O2 saturations in the 90s on 3 L/min per nasal cannula. He remains on IV diuretics. Currently -1 L balance. Urine culture positive for group D Enterococcus. White count 6.7. Hemoglobin 7.7. Platelets 121. Sodium 133. Potassium 3.3. Bicarb 25. BUN 140. Creatinine 2.55. Glucose 108. He remains on ceftriaxone. Continued on heparin for DVT prophylaxis. The patient is seen today March 20, 2024 in follow-up on the selective care unit. He is currently sitting up in a chair at the bedside. Awake and alert in no acute distress. Feeling quite a bit better today compared to yesterday. He is maintaining O2 saturations in the upper 90s on 3 L/min per nasal cannula. Chest x-ray showing mild improvement of the pleural parenchymal changes most typical of mild CHF. Underlying COPD and chronic lung disease noted. Urine culture is positive for Enterococcus faecium VRE. Blood culture pending. White count 7.2. Hemoglobin 8.2. Platelets 95,000. Sodium 134. Potassium 3.5. Bicarb 25. BUN 137. Creatinine 2.50. Glucose 131. He is continued on Eliquis, Bumex 2 mg twice daily and antibiotics in the form of Unasyn. He is not currently on a +40 mL balance. Indwelling catheter remains in place. Reevaluated today on 03/21/24, patient remains on the cardiac floor, remains on diuretics, remains on oxygen at 2 L/min, continues to have negative fluid balance in the last few days, however the amount of negative balance is not significant roughly 1.5 L in the last 4 days clinically however the patient is feeling better with diuretics. X-ray continues to show some interstitial edema slight improvement compared to baseline. WBC count is 4.8 hemoglobin 8.2 electrolytes are normal BUN is up to 137 creatinine is 2.66 Objective - Vital Signs Vital signs: Vital Signs Temp 97.7 F 03/21/24 08:38 Pulse 71 03/21/24 16:00 Resp 16 03/21/24 16:00 BP 105/56 03/21/24 16:00 Pulse Ox 100 03/21/24 16:00 FiO2 Intake & Output 03/20/24 03/21/24 03/21/24 18:59 06:59 18:59 Intake Total 486 120 236 Output Total 500 500 650 Balance -14 -380 -414 Weight 104.8 kg 104.8 kg Intake: Oral 486 120 236 Output: Urine 500 500 650 Other: Voiding Method Indwelling Catheter Indwelling Catheter # Voids 1 - Exam GENERAL EXAM: Revealed 78-year-old white male on 2 L nasal cannula in no distress HEAD: Normocephalic and atraumatic EYES: Normal reaction of pupils, equal size. NOSE: Clear with pink turbinates. THROAT: No erythema or exudates. NECK: No masses, no JVD. CHEST: No chest wall deformity. LUNGS: Fine crackles at the bases persist. CVS: S1 and S2 normal with no audible murmur, irregular rhythm. No extra heart sounds ABDOMEN: No hepatosplenomegaly, active bowel sounds, no guarding or rigidity. S mall reducible periumbilical hernia SKIN: Chronic venous stasis changes of lower extremities, upper extremities ecchymosis is noted. And bruising easily. CENTRAL NERVOUS SYSTEM: No focal deficits, tone is normal in all 4 extremities. EXTREMITIES: There is moderate bilateral lower extremity nonpitting edema. No clubbing, or cyanosis. Peripheral pulses are intact. - Labs CBC & Chem 7: 03/21/24 09:07 03/21/24 09:07 Labs: Abnormal Lab Results - Last 24 Hours (Table) 03/21/24 03/21/24 Range/Units 09:07 09:07 RBC 2.96 L (4.30-5.90) m/uL Hgb 8.2 L (13.0-17.5) gm/dL Hct 28.0 L (39.0-53.0) % MCHC 29.2 L (31.0-37.0) g/dL RDW 19.8 H (11.5-15.5) % Plt Count 88 L (150-450) k/uL Lymphocytes # 0.3 L (1.0-4.8) k/uL Sodium 133 L (137-145) mmol/L BUN 137 H* (9-20) mg/dL Creatinine 2.66 H (0.66-1.25) mg/dL Glucose 125 H (74-99) mg/dL Microbiology - Last 24 Hours (Table) 03/18/24 14:33 Blood Culture - Preliminary Blood Assessment and Plan Assessment: Impression: Acute on chronic hypoxic respiratory failure secondary to an acute exacerbation of chronic systolic congestive heart failure Severe cardiomyopathy with an ejection fraction of 20 to 25%, a most recent echocardiogram showed some improvement in ejection fraction of 30 to 35% with severe pulm hypertension. Chronic hypoxic respiratory failure secondary to above on 2 L of oxygen by nasal cannula Acute on chronic kidney injury, could be related to anatomic problems with the Knott catheter/obstruction the Knott catheter has been replaced. ATN cannot be completely ruled out. Chronic kidney disease stage IIIa History of nonsustained VT and the patient has an AICD in place Chronic atrial fibrillation, currently on anticoagulation with Eliquis Hypertension Hyperlipidemia Obesity with a BMI of 31.1 Fluid overload with lower extremity and abdominal wall edema VRE urinary tract infection Recommendation: Continue present course of treatment including diuretics Continue oxygen and titrate accordingly Chest x-ray reviewed, slight improvement is noted in his pulmonary edema Continue daptomycin for VRE UTI. Will continue to follow Time with Patient: Less than 30
--- NOTE | 2024-03-21 18:51 | P.PN ---
Subjective Patient is doing well. No chest discomfort dizziness or lightheadedness Blood pressure 126/93 mmHg and 105/56 mmHg pulse rate in the 70s IVCD noticed sustained VT no nonsustained VT Heart sounds S1-S2 soft Breath sounds are reduced bilaterally Labs reviewed Impression Severe cardiomyopathy ejection fraction 30-35% with acute on chronic systolic heart failure Cardiorenal syndrome acute kidney injury Underlying chronic kidney disease Frequent PVCs nonsustained VT and long runs of nonsustained VT Underlying persistent atrial fibrillation Yesterday amiodarone was added Anemia hemoglobin 8.2 Low sodium 133 High BUN which is the highest prognostic marker of poor prognosis Plan Start hydralazine 10 mg, 4 times daily as well as isosorbide dinitrate 5 mg 3 times daily for afterload reduction in order to improve forward flow and per fusion Unable to use dobutamine on account of very frequent ventricular ectopy and nonsustained VT Gradually maximize oral hydralazine and nitrates for afterload reduction and heart failure management Reduce Bumex while doing so Watch renal function and BUN follow-up electrolytes and magnesium transfer to Objective - Vital Signs Vital signs: Vital Signs Temp 97.7 F 03/21/24 08:38 Pulse 71 03/21/24 16:00 Resp 16 03/21/24 16:00 BP 105/56 03/21/24 16:00 Pulse Ox 100 03/21/24 16:00 FiO2 Intake & Output 03/20/24 03/21/24 03/21/24 18:59 06:59 18:59 Intake Total 486 120 354 Output Total 500 500 825 Balance -14 -380 -471 Weight 104.8 kg 104.8 kg Intake: Oral 486 120 354 Output: Urine 500 500 825 Other: Voiding Method Indwelling Catheter Indwelling Catheter # Voids 1 - Labs CBC & Chem 7: 03/21/24 09:07 03/21/24 09:07 Labs: Abnormal Lab Results - Last 24 Hours (Table) 03/21/24 03/21/24 Range/Units 09:07 09:07 RBC 2.96 L (4.30-5.90) m/uL Hgb 8.2 L (13.0-17.5) gm/dL Hct 28.0 L (39.0-53.0) % MCHC 29.2 L (31.0-37.0) g/dL RDW 19.8 H (11.5-15.5) % Plt Count 88 L (150-450) k/uL Lymphocytes # 0.3 L (1.0-4.8) k/uL Sodium 133 L (137-145) mmol/L BUN 137 H* (9-20) mg/dL Creatinine 2.66 H (0.66-1.25) mg/dL Glucose 125 H (74-99) mg/dL Microbiology - Last 24 Hours (Table) 03/18/24 14:33 Blood Culture - Preliminary Blood
[2024-03-21] MEDS: hydrALAZINE HCL 10 MG TAB PO SCH (18:56)
[2024-03-21] MEDS: ISOSORBIDE DINITRATE 10 MG TAB PO SCH (21:05)
--- NOTE | 2024-03-22 02:37 | PN ---
PROGRESS NOTE DATE OF SERVICE: 03/21/2024 SUBJECTIVE: This 78-year-old gentleman admitted with shortness of breath which is multifactorial, is improving significantly. No chest pain, no palpitations, no fever. OBJECTIVE: VITAL SIGNS: Pulse 61, blood pressure 130/90, respirations 17. CHEST: Few scattered rhonchi and crackles. ABDOMEN: Soft. NERVOUS SYSTEM: Nonfocal. LABORATORY DATA: Hemoglobin 8.2. Creatinine is 2.66. ASSESSMENT: 1. Shortness of breath, possibly multifactorial, combination of COPD, CHF acute exacerbation. 2. Knott catheter malfunction. 3. Acute on chronic kidney failure and baseline chronic kidney stage 3. 4. Bilateral foot cellulitis. 5. Thrombocytopenia. 6. Anemia. 7. Multiple complex medical issues. 8. VRE in the urine. RECOMMENDATIONS: Recommended to continue current management, continue symptomatic treatment. Urine culture showed VRE. We will continue to monitor. Otherwise, the patient is on daptomycin. Closely follow with Infectious Disease. Guarded prognosis. Further recommendations to follow. MMODL / IJN: [id number] /
--- NOTE | 2024-03-22 07:02 | P.PN ---
Subjective Progress Note Date: 03/21/24 Principal diagnosis: Urinary retention The Knott catheter has been removed. The patient states that he is voiding without difficulty, with a good stream. He denies dysuria and hematuria. Objective - Vital Signs Vital signs: Vital Signs Temp 97.2 F L 03/21/24 20:00 Pulse 74 03/21/24 20:00 Resp 20 03/21/24 20:00 BP 120/60 03/21/24 20:00 Pulse Ox 97 03/21/24 20:00 FiO2 Intake & Output 03/21/24 03/21/24 03/22/24 06:59 18:59 06:59 Intake Total 120 354 480 Output Total 500 825 350 Balance -380 -471 130 Weight 104.8 kg 104.8 kg Intake: Oral 120 354 480 Output: Urine 500 825 350 Straight 250 Other: Voiding Method Indwelling Catheter Urinal # Voids 1 - Constitutional General appearance: Present: average body habitus, cooperative, no acute distress - Psychiatric Psychiatric: Present: A&O x's 3 - Labs CBC & Chem 7: 03/21/24 09:07 03/21/24 09:07 Labs: Abnormal Lab Results - Last 24 Hours (Table) 03/21/24 03/21/24 Range/Units 09:07 09:07 RBC 2.96 L (4.30-5.90) m/uL Hgb 8.2 L (13.0-17.5) gm/dL Hct 28.0 L (39.0-53.0) % MCHC 29.2 L (31.0-37.0) g/dL RDW 19.8 H (11.5-15.5) % Plt Count 88 L (150-450) k/uL Lymphocytes # 0.3 L (1.0-4.8) k/uL Sodium 133 L (137-145) mmol/L BUN 137 H* (9-20) mg/dL Creatinine 2.66 H (0.66-1.25) mg/dL Glucose 125 H (74-99) mg/dL Microbiology - Last 24 Hours (Table) 03/18/24 14:33 Blood Culture - Preliminary Blood Assessment and Plan (1) Retention of urine, unspecified Current Visit: Yes Status: Acute Code(s): R33.9 - RETENTION OF URINE, UNSPECIFIED SNOMED Code(s): 350982431 Plan: Continue tamsulosin. The patient states that he is voiding without difficulty, but per his nurse his postvoid residual was approximately 300 cc. This will continue to be monitored. He may require catheterization for verification as ultrasound previously showed evidence of ascites, which can cause erroneous bladder scan results.
[2024-03-22 07:47] LABS: Anisocytosis Slight; Basophils % (A) 0 %; Eosinophils % (A) 1 %; HCT 27.3 % (39.0-53.0); HGB 8.1 gm/dL (13.0-17.5); Hypochromasia Marked; Lymphocytes # (A) 0.4 k/uL (1.0-4.8); Lymphocytes % (A) 8 %; MCH 27.7 pg (25.0-35.0); MCHC 29.5 g/dL (31.0-37.0); MCV 94.1 fL (80.0-100.0); Macrocytosis Slight; Monocytes # (A) 0.4 k/uL (0-1.0); Monocytes % (A) 8 %; Neutrophils # (A) 4.6 k/uL (1.3-7.7); Neutrophils % (A) 82 %; Poikilocytosis Slight; RBC 2.91 m/uL (4.30-5.90); RDW 19.6 % (11.5-15.5); WBC 5.6 k/uL (3.8-10.6)
[2024-03-22 08:10] LABS: African American GFR (CKD) 27 (>60 ml/min/1.73 sqM); Anion Gap 8 mmol/L; Calcium 8.5 mg/dL (8.4-10.2); Carbon Dioxide 25 mmol/L (22-30); Chloride 100 mmol/L (98-107); Glucose 87 mg/dL (74-99); Non-African American GFR(CKD) 23 (>60 ml/min/1.73 sqM); Potassium 3.7 mmol/L (3.5-5.1); Sodium 133 mmol/L (137-145)
--- NOTE | 2024-03-22 08:12 | XR ---
EXAMINATION TYPE: XR chest 1V portable DATE OF EXAM: 03/22/2024 COMPARISON: 03/20/2024 HISTORY: Shortness of breath TECHNIQUE: Single frontal view of the chest is obtained. FINDINGS: Cardiac device stable. Atherosclerotic change aorta with marked cardiomegaly and diffuse i nterstitial pattern. Bilateral consolidation and tiny pleural effusion. No pneumothorax. Diffuse oste openia, degenerative change of the spine and arthropathy of the shoulders. Underlying COPD and chroni c interstitial lung disease in the differential diagnosis. IMPRESSION: Stable pleural-parenchymal changes. Underlying COPD and chronic lung disease in the diff erential diagnosis. Correlate clinically to exclude pneumonia versus CHF.
[2024-03-22 08:24] LABS: Blood Urea Nitrogen 128 mg/dL (9-20)
[2024-03-22] MEDS: BUMETANIDE 1 MG TAB PO SCH (09:06)
[2024-03-22] MEDS: hydrALAZINE HCL 10 MG TAB PO SCH (09:06)
[2024-03-22] MEDS: ISOSORBIDE DINITRATE 10 MG TAB PO SCH (09:06)
[2024-03-22] MEDS: SPIRONOLACTONE 25 MG TAB PO SCH (09:06)
--- NOTE | 2024-03-22 09:54 | P.PN ---
Subjective patient is seen for follow-up for chronic kidney disease. He is currently being diuresed. Renal function is stable with serum creatinine at about 2.5 mg/dL. Serum creatinine increased to 2.6 today. BUN disproportionately elevated. Awaiting stool for occult blood. No signs of active GI bleed. Patient is not maintained on steroids. Appetite was poor yesterday but seems to have improved today. patient is not a candidate for dobutamine due to multiple runs of tachycardia and PVCs and risk of sustained V. tach. No significant complaints today. urine output at 2.0 L for 24 hours which is slightly higher. Objective - Vital Signs Vital signs: Vital Signs Temp 98.3 F 03/22/24 08:47 Pulse 73 03/22/24 08:47 Resp 24 03/22/24 08:47 BP 96/59 03/22/24 08:47 Pulse Ox 94 L 03/22/24 08:47 FiO2 Intake & Output 03/21/24 03/22/24 03/22/24 18:59 06:59 18:59 Intake Total 354 480 237 Output Total 825 1200 Balance -471 -720 237 Weight 104.8 kg 105.6 kg Intake: Oral 354 480 237 Output: Urine 825 1200 Straight 250 Other: Voiding Method Indwelling Catheter Indwelling Catheter # Voids 1 # Bowel Movements 1 - Exam patient is awake, comfortable, no acute distress. Examination of the heart S1 and S2 Examination of the lungs bilateral breath sounds are heard Abdomen is soft nontender Examination of lower extremities shows chronic skin changes with 2+ edema bilaterally [employer] exam grossly intact - Labs CBC & Chem 7: 03/22/24 07:09 03/22/24 07:09 Labs: Abnormal Lab Results - Last 24 Hours (Table) 03/21/24 03/21/24 03/22/24 Range/Units 09:07 09:07 07:09 RBC 2.96 L 2.91 L (4.30-5.90) m/uL Hgb 8.2 L 8.1 L (13.0-17.5) gm/dL Hct 28.0 L 27.3 L (39.0-53.0) % MCHC 29.2 L 29.5 L (31.0-37.0) g/dL RDW 19.8 H 19.6 H (11.5-15.5) % Plt Count 88 L (150-450) k/uL Lymphocytes # 0.3 L (1.0-4.8) k/uL Sodium 133 L (137-145) mmol/L BUN 137 H* (9-20) mg/dL Creatinine 2.66 H (0.66-1.25) mg/dL Glucose 125 H (74-99) mg/dL 03/22/24 Range/Units 07:09 RBC (4.30-5.90) m/uL Hgb (13.0-17.5) gm/dL Hct (39.0-53.0) % MCHC (31.0-37.0) g/dL RDW (11.5-15.5) % Plt Count (150-450) k/uL Lymphocytes # (1.0-4.8) k/uL Sodium 133 L (137-145) mmol/L BUN 128 H* (9-20) mg/dL Creatinine 2.60 H (0.66-1.25) mg/dL Glucose (74-99) mg/dL Microbiology - Last 24 Hours (Table) 03/18/24 14:33 Blood Culture - Preliminary Blood Assessment and Plan Assessment: 1. Acute kidney injury secondary to ATN secondary to cardiorenal syndrome. Creatinine recently in the range of 2.4-2.6. BUN is disproportionately elevated. Consider underlying GI bleed. Discussed with patient that he may need to start renal replacement therapy if no further improvement in renal function and volume status. BUN has decreased today. Serum creatinine about the same therefore I will hold off on dialysis for now. 2. Chronic kidney disease stage IIIa with baseline creatinine 1.3-1.4 from October and November 2023. Kidney ultrasound from March 01, 2024 showed normal- sized kidneys without any hydronephrosis. 3. Acute on chronic systolic CHF with ejection fraction of 30 to 35% with mild to moderate mitral and tricuspid vegetation and moderate pulmonary hypertension. Status post AICD. 4. Volume overload. 5. Anemia of chronic kidney disease. Iron deficiency noted. Status post IV iron. rule out GI bleed. Awaiting stool for occult blood Plan: continue to diurese patient. Bumex dose has been decreased. not a candidate for inotropic agents due to risk of sustained V. tach Continue with Knott catheter Check stool for occult blood to rule out underlying GI bleed due to dispropor tionately elevated B UN
[2024-03-22 10:29] LABS: Platelet Count 66 k/uL (150-450)
--- NOTE | 2024-03-22 11:08 | P.PN ---
Subjective Progress Note Date: 03/22/24 Principal diagnosis: Urinary retention Bladder scan overnight was 800 cc. The patient was able to void 100 cc. 2 attempts to straight catheterize him were unsuccessful. Ultimately, a Knott catheter was placed, with return of 400 cc. Objective - Vital Signs Vital signs: Vital Signs Temp 97.0 F L 03/22/24 04:00 Pulse 65 03/22/24 04:00 Resp 18 03/22/24 04:00 BP 105/64 03/22/24 04:00 Pulse Ox 98 03/22/24 04:00 FiO2 Intake & Output 03/21/24 03/22/24 03/22/24 18:59 06:59 18:59 Intake Total 354 480 Output Total 825 1200 Balance -471 -720 Weight 104.8 kg 105.6 kg Intake: Oral 354 480 Output: Urine 825 1200 Straight 250 Other: Voiding Method Indwelling Catheter # Voids 1 - Constitutional General appearance: Present: average body habitus, cooperative, no acute distr ess - Psychiatric Psychiatric: Present: A&O x's 3 - Labs CBC & Chem 7: 03/22/24 07:09 03/22/24 07:09 Labs: Abnormal Lab Results - Last 24 Hours (Table) 03/21/24 03/21/24 Range/Units 09:07 09:07 RBC 2.96 L (4.30-5.90) m/uL Hgb 8.2 L (13.0-17.5) gm/dL Hct 28.0 L (39.0-53.0) % MCHC 29.2 L (31.0-37.0) g/dL RDW 19.8 H (11.5-15.5) % Plt Count 88 L (150-450) k/uL Lymphocytes # 0.3 L (1.0-4.8) k/uL Sodium 133 L (137-145) mmol/L BUN 137 H* (9-20) mg/dL Creatinine 2.66 H (0.66-1.25) mg/dL Glucose 125 H (74-99) mg/dL Microbiology - Last 24 Hours (Table) 03/18/24 14:33 Blood Culture - Preliminary Blood Assessment and Plan (1) Retention of urine, unspecified Current Visit: Yes Status: Acute Code(s): R33.9 - RETENTION OF URINE, UNSPECIFIED SNOMED Code(s): 004791018 Plan: The patient states that he was voiding without difficulty, but the Knott catheter has been replaced for recurrent urinary retention. I would suggest the catheter remain in place to optimize his renal function. However, if he progresses to requiring long-term dialysis, I would be in favor of removing the catheter and allowing him to avoid spontaneously. The 2 main concerns with incomplete bladder emptying are recurrent UTIs, which she has not had, and renal damage. If the ends up on dialysis, there will be no need to be concerned about preservation of renal function and the patient could empty his bladder incompletely without significant risk. Conversely, if his renal function improves, I will recommend that he undergo urodynamic testing and cystoscopy for further evaluation.
--- NOTE | 2024-03-22 12:51 | P.PN ---
Subjective Patient was in the bathroom. He came out walking slowly. He was very mildly short of breath Hepatojugular reflux present even in the standing position Breath sounds are reduced bilaterally with crackles at the bases Heart sounds S1-S2 soft Blood pressure 105/64 and 96/59 mmHg pulse rate is in the 60s and 70s afebrile Hemoglobin 8.1 Low platelet count Hematocrit 27.3, low Sodium 133 potassium 3.7 BUN improved 128 Creatinine 2.6 Impression Severe cardiomyopathy with severe heart failure, low forward flow state Nonsustained VT frequent runs, started on amiodarone IVCD Elevated BUN, CKD, cardiorenal syndrome Anemia and low platelet count Plan continue Bumex p.o. 2 mg p.o. daily Continue dapagliflozin Hydralazine dose was increased to 15 mg 4 times daily and isosorbide increased to 10 mg 3 times daily for afterload reduction Spironolactone 50 mg p.o. daily Low-dose metoprolol 12.5 mg p.o. daily I discussed this with the nurse and she was instructed to continue with all cardiac medications as long as blood pressure was at least 80 mmHg systolic Cardiac medications were not to be held for a blood pressure systolic above 80 mmHg Daily BMP Objective - Vital Signs Vital signs: Vital Signs Temp 98.3 F 03/22/24 08:47 Pulse 67 03/22/24 11:41 Resp 20 03/22/24 11:41 BP 95/59 03/22/24 11:41 Pulse Ox 97 03/22/24 11:41 FiO2 Intake & Output 03/21/24 03/22/24 03/22/24 18:59 06:59 18:59 Intake Total 354 480 237 Output Total 825 1200 Balance -471 -720 237 Weight 104.8 kg 105.6 kg Intake: Oral 354 480 237 Output: Urine 825 1200 Straight 250 Other: Voiding Method Indwelling Catheter Indwelling Catheter # Voids 1 # Bowel Movements 1 - Labs CBC & Chem 7: 03/22/24 07:09 03/22/24 07:09 Labs: Abnormal Lab Results - Last 24 Hours (Table) 03/22/24 03/22/24 Range/Units 07:09 07:09 RBC 2.91 L (4.30-5.90) m/uL Hgb 8.1 L (13.0-17.5) gm/dL Hct 27.3 L (39.0-53.0) % MCHC 29.5 L (31.0-37.0) g/dL RDW 19.6 H (11.5-15.5) % Plt Count 66 L (150-450) k/uL Lymphocytes # 0.4 L (1.0-4.8) k/uL Sodium 133 L (137-145) mmol/L BUN 128 H* (9-20) mg/dL Creatinine 2.60 H (0.66-1.25) mg/dL Microbiology - Last 24 Hours (Table) 03/18/24 14:33 Blood Culture - Preliminary Blood
--- NOTE | 2024-03-22 15:50 | P.PN ---
Subjective Progress Note Date: 03/22/24 Principal diagnosis: Reason for follow-up is a catheter associated UTI Patient is 78-year-old male with a past medical history significant for hypertension hyperlipidemia reflux COPD osteoarthritis chronic back pain, patient has been sent to the ER for Knott catheter malfunction, we did have replacement of Knott catheter patient also noticed to have a positive UA con cerning for cath versus UTI. On today's evaluation that is 03/22/2024, the patient continues to be afebrile, the patient is on 2 L nasal cannula oxygen and breathing comfortably, the Pt denies having any chest pain or cough, the patient denies having any abdominal pain no vomiting or any diarrhea patient did have placement of Knott catheter again because of retention. Patient did have white count of 5.6, creatinine is 2.60 Objective - Vital Signs Vital signs: Vital Signs Temp 98.3 F 03/22/24 08:47 Pulse 67 03/22/24 13:09 Resp 20 03/22/24 11:41 BP 95/59 03/22/24 11:41 Pulse Ox 97 03/22/24 11:41 FiO2 Intake & Output 03/21/24 03/22/24 03/22/24 18:59 06:59 18:59 Intake Total 354 480 237 Output Total 825 1200 Balance -471 -720 237 Weight 104.8 kg 105.6 kg Intake: Oral 354 480 237 Output: Urine 825 1200 Straight 250 Other: Voiding Method Indwelling Catheter Indwelling Catheter # Voids 1 # Bowel Movements 1 - Exam GENERAL DESCRIPTION: An elderly male lying in bed in no distress RESPIRATORY SYSTEM: Unlabored breathing , decreased breath sounds at bases HEART: S1 S2 regular rate and rhythm , ABDOMEN: Soft , no tenderness EXTREMITIES: No edema feet - Labs CBC & Chem 7: 03/22/24 07:09 03/22/24 07:09 Labs: Abnormal Lab Results - Last 24 Hours (Table) 03/22/24 03/22/24 Range/Units 07:09 07:09 RBC 2.91 L (4.30-5.90) m/uL Hgb 8.1 L (13.0-17.5) gm/dL Hct 27.3 L (39.0-53.0) % MCHC 29.5 L (31.0-37.0) g/dL RDW 19.6 H (11.5-15.5) % Plt Count 66 L (150-450) k/uL Lymphocytes # 0.4 L (1.0-4.8) k/uL Sodium 133 L (137-145) mmol/L BUN 128 H* (9-20) mg/dL Creatinine 2.60 H (0.66-1.25) mg/dL Microbiology - Last 24 Hours (Table) 03/18/24 14:33 Blood Culture - Preliminary Blood Assessment and Plan (1) UTI (urinary tract infection) Current Visit: Yes Status: Acute Code(s): N39.0 - URINARY TRACT INFECTION, SITE NOT SPECIFIED SNOMED Code(s): 53874058 Plan: 1patient presented to hospital with multiple 25 his Knott catheter in this patient who did have a significantly positive UA some lower abdominal discomfort concerning for cystitis likely from enteric gram-negative pathogen, patient urine is growing Enterococcus which has been finalized as VRE 2patient is currently covered with daptomycin to continue while inpatient and monitor clinical course closely Dictation was produced using [employer] dictation software. please excuse any grammatical, word or spelling errors.
--- NOTE | 2024-03-22 16:37 | P.PN ---
Subjective Progress Note Date: 03/22/24 Principal diagnosis: Acute on chronic hypoxic respiratory failure secondary to acute exacerbation of chronic systolic congestive heart failure with severe cardiomyopathy ejection f raction of 20 to 25% This is a 78-year-old female patient, presented today because of worsening sh ortness of breath. She has known history of severe cardiomyopathy with ejection fraction of 20 to 25%, chronic kidney disease, history of nonsustained VT has an AICD in place, chronic A-fib, hypertension hyperlipidemia and obesity and previous hospitalization for decompensated heart failure, renal failure and fluid overload. The patient was last discharged from the hospital on 03/07/2024 to present back to the emergency department on 03/18/2020 forward worsening shortness of breath and decompensated heart failure. She also reports increased edema over the past 24 to 48 hours. She noticed that her Knott catheter was not draining. In October 2023, her creatinine was around 1.3-1.4. However, subsequently, there has been progressive worsening renal function and the patient currently has stage IV chronic kidney disease with a recent creatinine of 2.5. During this current admission, her creatinine was at 2.6 with a BUN of 151. Potassium level was at 3.7. White cell count is at 9.30 hemoglobin 8.9. The Knott catheter was exchanged and the patient was given IV Lasix and admitted to the hospital. She is currently on oxygen at 3 L with a pulse ox of 97% and the chest x-ray is consistent with cardiomegaly and CHF and pulmonary edema. Rest of the blood work shows a proBNP level of 39,000, troponin of 0.07, LFTs are normal, and a UA showing 23 WBCs. 22 RBCs. +1 protein. Viral screen was negative. The patient is seen today March 19, 2024 in follow-up in the emergency department. He is currently resting on a stretcher. Awake and alert in no acute distress. He is currently maintaining O2 saturations in the 90s on 3 L/min per nasal cannula. He remains on IV diuretics. Currently -1 L balance. Urine culture positive for group D Enterococcus. White count 6.7. Hemoglobin 7.7. Platelets 121. Sodium 133. Potassium 3.3. Bicarb 25. BUN 140. Creatinine 2.55. Glucose 108. He remains on ceftriaxone. Continued on heparin for DVT prophylaxis. The patient is seen today March 20, 2024 in follow-up on the selective care unit. He is currently sitting up in a chair at the bedside. Awake and alert in no acute distress. Feeling quite a bit better today compared to yesterday. He is maintaining O2 saturations in the upper 90s on 3 L/min per nasal cannula. Chest x-ray showing mild improvement of the pleural parenchymal changes most typical of mild CHF. Underlying COPD and chronic lung disease noted. Urine culture is positive for Enterococcus faecium VRE. Blood culture pending. White count 7.2. Hemoglobin 8.2. Platelets 95,000. Sodium 134. Potassium 3.5. Bicarb 25. BUN 137. Creatinine 2.50. Glucose 131. He is continued on Eliquis, Bumex 2 mg twice daily and antibiotics in the form of Unasyn. He is not currently on a +40 mL balance. Indwelling catheter remains in place. Reevaluated today on 03/21/24, patient remains on the cardiac floor, remains on diuretics, remains on oxygen at 2 L/min, continues to have negative fluid balance in the last few days, however the amount of negative balance is not significant roughly 1.5 L in the last 4 days clinically however the patient is feeling better with diuretics. X-ray continues to show some interstitial edema slight improvement compared to baseline. WBC count is 4.8 hemoglobin 8.2 electrolytes are normal BUN is up to 137 creatinine is 2.66 Reevaluate today on 03/22/2024, patient is doing better, breathing easier, continues to diurese, remains on diuretics, on 2 L nasal cannula with O2 sats of 97%. Overall the patient is improving but he is not quite ready for discharge. WBC count is 5.6 hemoglobin 8.1 BUN is up to 128 creatinine 2.60, patient remains on diuretics. Patient does have severe LV dysfunction. Remains on antibiotics in the form of daptomycin, remains on Bumex and he also remains on Aldactone. Pulmonary almonte he is on multiple bronchodilators as noted in the chart. Objective - Vital Signs Vital signs: Vital Signs Temp 98.3 F 03/22/24 08:47 Pulse 67 03/22/24 13:09 Resp 20 03/22/24 11:41 BP 95/59 03/22/24 11:41 Pulse Ox 97 03/22/24 11:41 FiO2 Intake & Output 03/21/24 03/22/2403/22/24 18:59 06:59 18:59 Intake Total 354 480 474 Output Total 825 1200 Balance -471 -212 474 Weight 104.8 kg 105.6 kg Intake: Oral 354 480 474 Output: Urine 825 1200 Straight 250 Other: Voiding Method Indwelling Catheter Indwelling Catheter # Voids 1 # Bowel Movements 1 - Exam GENERAL EXAM: Revealed 78-year-old white male on 2 L nasal cannula in no distress HEAD: Normocephalic and atraumatic EYES: Normal reaction of pupils, equal size. NOSE: Clear with pink turbinates. THROAT: No erythema or exudates. NECK: No masses, no JVD. CHEST: No chest wall deformity. LUNGS: Crackles at the bases persist, rhonchi persist. CVS: S1 and S2 normal with no audible murmur, irregular rhythm. No extra heart sounds ABDOMEN: No hepatosplenomegaly, active bowel sounds, no guarding or rigidity. Small reducible periumbilical hernia SKIN: Chronic venous stasis changes of lower extremities, upper extremities ecchymosis is noted. And bruising easily. CENTRAL NERVOUS SYSTEM: No focal deficits, tone is normal in all 4 extremities. EXTREMITIES: There is moderate bilateral lower extremity nonpitting edema. No clubbing, or cyanosis. Peripheral pulses are intact. - Labs CBC & Chem 7: 03/22/24 07:09 03/22/24 07:09 Labs: Abnormal Lab Results - Last 24 Hours (Table) 03/22/24 03/22/24 Range/Units 07:09 07:09 RBC 2.91 L (4.30-5.90) m/uL Hgb 8.1 L (13.0-17.5) gm/dL Hct 27.3 L (39.0-53.0) % MCHC 29.5 L (31.0-37.0) g/dL RDW 19.6 H (11.5-15.5) % Plt Count 66 L (150-450) k/uL Lymphocytes # 0.4 L (1.0-4.8) k/uL Sodium 133 L (137-145) mmol/L BUN 128 H* (9-20) mg/dL Creatinine 2.60 H (0.66-1.25) mg/dL Microbiology - Last 24 Hours (Table) 05/27/24 14:33 Blood Culture - Preliminary Blood Assessment and Plan Assessment: Impression: Acute on chronic hypoxic respiratory failure secondary to an acute exacerbation of chronic systolic congestive heart failure Severe cardiomyopathy with an ejection fraction of 20 to 25%, a most recent echocardiogram showed some improvement in ejection fraction of 30 to 35% with severe pulm hypertension. Chronic hypoxic respiratory failure secondary to above on 2 L of oxygen by nasal cannula Acute on chronic kidney injury, could be related to anatomic problems with the Knott catheter/obstruction the Knott catheter has been replaced. ATN cannot be completely ruled out. Chronic kidney disease stage IIIa History of nonsustained VT and the patient has an AICD in place Chronic atrial fibrillation, currently on anticoagulation with Eliquis Hypertension Hyperlipidemia Obesity with a BMI of 31.1 Fluid overload with lower extremity and abdominal wall edema VRE urinary tract infection Recommendation: Continue present course of treatment including diuretics Continue oxygen and titrate accordingly Discussed his condition with at bedside Continue daptomycin for VRE UTI. Will continue to follow Time with Patient: Less than 30
[2024-03-22] MEDS: ONDANSETRON 4 MG/2 ML VIAL IVP PRN (17:27)
[2024-03-23 04:44] LABS: African American GFR (CKD) 26 (>60 ml/min/1.73 sqM); Anion Gap 9 mmol/L; Calcium 8.3 mg/dL (8.4-10.2); Carbon Dioxide 23 mmol/L (22-30); Chloride 99 mmol/L (98-107); Glucose 92 mg/dL (74-99); Non-African American GFR(CKD) 23 (>60 ml/min/1.73 sqM); Potassium 3.7 mmol/L (3.5-5.1); Sodium 131 mmol/L (137-145)
[2024-03-23 04:55] LABS: Blood Urea Nitrogen 127 mg/dL (9-20)
--- NOTE | 2024-03-23 12:05 | P.PN ---
Subjective Progress Note Date: 03/23/24 The patient is a 78-year-old male with past medical history of multiple comorbid conditions, who is currently admitted with congestive heart failure. He had increased edema and cough. Heart failure medications have been maximized over the course of his admission. He continues to have shortness of breath with minimal exertion. He is currently resting comfortably in the chair. He denies any chest pain or pressure. No tachypnea at rest. GENERAL: Well-appearing, well-nourished and in no acute distress. NECK: Supple without JVD or thyromegaly. LUNGS: Breath sounds severely diminished to auscultation bilaterally. Respiration equal and unlabored. Fine crackles at the bases. HEART: Regular rate and rhythm without murmurs, rubs or gallops. S1 and S2 heard. EXTREMITIES: Normal range of motion, +2-3 lower extremity edema. Hyperpigmentation. No clubbing or cyanosis. TELEMETRY: Sinus rhythm IMPRESSION: CAD nonischemic cardiomyopathy, EF 30-35% from 10/2023. AICD implantation persistent atrial fibrillation, hypertension hyperlipidemia Shortness of breath Extremity edema UTI PLAN: Continue to maximize hydralazine for afterload reduction Do not hold cardiac medications unless systolic is below 80 mmHg Further recommendations to be based upon clinical course I am dictating on behalf of Dr Roberto Medina's history/physical and assessment/plan. Objective - Vital Signs Vital signs: Vital Signs Temp 97.7 F 03/23/24 08:00 Pulse 89 03/23/24 08:00 Resp 18 03/23/24 08:00 BP 105/58 03/23/24 08:00 Pulse Ox 96 03/23/24 09:18 FiO2 Intake & Output 03/22/24 03/23/24 03/23/24 18:59 06:59 18:59 Intake Total 1674 358 Output Total 1075 550 Balance 599 -550 358 Weight 105.5 kg Intake: Oral 1674 358 Output: Urine 1075 550 Other: Voiding Method Indwelling Catheter Indwelling Catheter Indwelling Catheter # Bowel Movements 1 1 - Labs CBC & Chem 7: 03/22/24 07:09 03/23/24 03:16 Labs: Abnormal Lab Results - Last 24 Hours (Table) 03/23/24 Range/Units 03:16 Sodium 131 L (137-145) mmol/L BUN 127 H* (9-20) mg/dL Creatinine 2.64 H (0.66-1.25) mg/dL Calcium 8.3 L (8.4-10.2) mg/dL
[2024-03-23] MEDS: hydrALAZINE HCL 10 MG TAB PO SCH (12:53)
--- NOTE | 2024-03-23 13:06 | P.PN ---
Subjective Progress Note Date: 03/23/24 This is a 78-year-old female patient, presented today because of worsening shortness of breath. She has known history of severe cardiomyopathy with ejection fraction of 20 to 25%, chronic kidney disease, history of nonsustained VT has an AICD in place, chronic A-fib, hypertension hyperlipidemia and obesity and previous hospitalization for decompensated heart failure, renal failure and fluid overload. The patient was last discharged from the hospital on 03/07/2024 to present back to the emergency department on 03/18/2020 forward worsening shortness of breath and decompensated heart failure. She also reports increased edema over the past 24 to 48 hours. She noticed that her Knott catheter was not draining. In October 2023, her creatinine was around 1.3-1.4. However, subsequently, there has been progressive worsening renal function and the patient currently has stage IV chronic kidney disease with a recent creatinine of 2.5. During this current admission, her creatinine was at 2.6 with a BUN of 151. Potassium level was at 3.7. White cell count is at 9.30 hemoglobin 8.9. The Knott catheter was exchanged and the patient was given IV Lasix and admitted to the hospital. She is currently on oxygen at 3 L with a pulse ox of 97% and the chest x-ray is consistent with cardiomegaly and CHF and pulmonary edema. Rest of the blood work shows a proBNP level of 39,000, troponin of 0.07, LFTs are normal, and a UA showing 23 WBCs. 22 RBCs. +1 protein. Viral screen was negative. The patient is seen today March 19, 2024 in follow-up in the emergency department. He is currently resting on a stretcher. Awake and alert in no acute distress. He is currently maintaining O2 saturations in the 90s on 3 L/min per nasal cannula. He remains on IV diuretics. Currently -1 L balance. Urine culture positive for group D Enterococcus. White count 6.7. Hemoglobin 7.7. Platelets 121. Sodium 133. Potassium 3.3. Bicarb 25. BUN 140. Creatinine 2.55. Glucose 108. He remains on ceftriaxone. Continued on heparin for DVT prophylaxis. The patient is seen today March 20, 2024 in follow-up on the selective care unit. He is currently sitting up in a chair at the bedside. Awake and alert in no acute distress. Feeling quite a bit better today compared to yesterday. He is maintaining O2 saturations in the upper 90s on 3 L/min per nasal cannula. Chest x-ray showing mild improvement of the pleural parenchymal changes most typical of mild CHF. Underlying COPD and chronic lung disease noted. Urine culture is positive for Enterococcus faecium VRE. Blood culture pending. White count 7.2. Hemoglobin 8.2. Platelets 95,000. Sodium 134. Potassium 3.5. Bicarb 25. BUN 137. Creatinine 2.50. Glucose 131. He is continued on Eliquis, Bumex 2 mg twice daily and antibiotics in the form of Unasyn. He is not currently on a +40 mL balance. Indwelling catheter remains in place. The patient is seen today March 23, 2024 in follow-up on the selective care unit. He is awake and alert in no acute distress. Feeling better today compared to yesterday. Currently sitting up in a chair. Denies any worsening shortness of breath, cough or congestion. He is maintaining O2 saturations in the 90s on 3 L/min per nasal cannula. Urine culture was positive for Enterococcus faecium VRE. Blood culture revealed no growth. Sodium 131. Potassium 3.7. Bicarb 23. BUN 127. Creatinine 2.64. Stool for occult blood was negative. Continued on DuoNeb inhalations, Pulmicort inhalations. Antibiotics in the form of daptomycin. Anticoagulated with Eliquis. Objective - Vital Signs Vital signs: Vital Signs Temp 97.7 F 03/23/24 08:00 Pulse 89 03/23/24 08:00 Resp 18 03/23/24 08:00 BP 105/58 03/23/24 08:00 Pulse Ox 96 03/23/24 09:18 FiO2 Intake & Output 03/22/24 03/23/24 03/23/24 18:59 06:59 18:59 Intake Total 1674 358 Output Total 1075 550 Balance 599 -550 358 Weight 105.5 kg Intake: Oral 1674 358 Output: Urine 1075 550 Other: Voiding Method Indwelling Catheter Indwelling Catheter Indwelling Catheter # Bowel Movements 1 1 - Exam GENERAL EXAM: Alert, pleasant 78-year-old male, up in a chair, on 3 L nasal cannula, in no apparent distress. HEAD: Normocephalic and atraumatic EYES: Normal reaction of pupils, equal size. NOSE: Clear with pink turbinates. THROAT: No erythema or exudates. NECK: No masses, no JVD. CHEST: No chest wall deformity. LUNGS: Equal air entry with minimal inspiratory bibasilar crackles. No wheezing, rhonchi, or focal dullness. CVS: S1 and S2 normal with no audible murmur, irregular rhythm. No extra heart sounds ABDOMEN: No hepatosplenomegaly, active bowel sounds, no guarding or rigidity. Small reducible periumbilical hernia SPINE: No scoliosis or deformity SKIN: Chronic venous stasis changes of lower extremities CENTRAL NERVOUS SYSTEM: No focal deficits, tone is normal in all 4 extremities. EXTREMITIES: There is moderate bilateral lower extremity nonpitting edema. No clubbing, or cyanosis. Peripheral pulses are intact. - Labs CBC & Chem 7: 03/22/24 07:09 03/23/24 03:16 Labs: Abnormal Lab Results - Last 24 Hours (Table) 03/23/24 Range/Units 03:16 Sodium 131 L (137-145) mmol/L BUN 127 H* (9-20) mg/dL Creatinine 2.64 H (0.66-1.25) mg/dL Calcium 8.3 L (8.4-10.2) mg/dL Assessment and Plan Assessment: Acute on chronic hypoxic respiratory failure secondary to an acute exacerbation of chronic systolic congestive heart failure, stable and on room air Severe cardiomyopathy with an ejection fraction of 20 to 25%, a most recent echocardiogram showed some improvement in ejection fraction of 30 to 35% with severe pulmonary hypertension Chronic hypoxic respiratory failure secondary to above on 2 L of oxygen by nasal cannula Acute on chronic kidney injury, could be related to anatomic problems with the Knott catheter/obstruction the Knott catheter has been replaced. ATN cannot be completely ruled out Chronic kidney disease stage IIIa History of nonsustained VT and the patient has an AICD in place Chronic atrial fibrillation, currently on anticoagulation with Eliquis Hypertension Hyperlipidemia Obesity with a BMI of 31.1 Fluid overload with lower extremity and abdominal wall edema Plan: The patient was seen and evaluated Labs and medications reviewed Continue the current treatment plan Titrate down the FiO2 as tolerated Increase his activity as tolerated We will continue to follow I have personally seen and examined the patient, performed the documentation and the assessment and plan as written. Number of minutes spent on the visit: 10.
--- NOTE | 2024-03-23 13:59 | PN ---
PROGRESS NOTE DATE OF SERVICE: 03/23/2024 SUBJECTIVE: This is a 78-year-old gentleman admitted with COPD acute exacerbation, is being closely monitored at this time. The patient also has a combination of CHF and COPD. PAST MEDICAL HISTORY: A 14-point review is negative. CURRENT MEDICATIONS: Reviewed. PHYSICAL EXAMINATION: VITAL SIGNS: Pulse is 89, blood pressure 130/58, respirations 18. HEENT: Conjunctivae normal. RESPIRATIONS: Few scattered rhonchi. ABDOMEN: Soft. NERVOUS SYSTEM: Nonfocal. LABORATORY DATA: Creatinine 8.1, sodium 131, creatinine is 2.6. ASSESSMENT: 1. Shortness of breath, multifactorial, possibly combination of COPD, CHF acute exacerbation, Knott catheter malfunction, acute on chronic kidney failure and baseline chronic kidney disease, stage III. 2. Bilateral foot cellulitis. 3. Thrombocytopenia. 4. Anemia. 5. Multiple complex medical issues. 6. VRE in the urine. RECOMMENDATIONS AND DISCUSSION: I recommended to continue current management. Continue with monitor closely, otherwise PT OT evaluation, possible ECF rehab. Obtain multivitamins. See orders for details. Guarded prognosis. Further recommendations to follow. Increase ambulation. Monitor creatinine closely. Avoid nephrotoxic medications. MMODL / IJN: [id number] /
--- NOTE | 2024-03-23 14:42 | P.PN ---
Subjective Progress Note Date: 03/23/24 Principal diagnosis: Reason for follow-up is a catheter associated UTI Patient is 78-year-old male with a past medical history significant for hypertension hyperlipidemia reflux COPD osteoarthritis chronic back pain, patient has been sent to the ER for Knott catheter malfunction, we did have replacement of Knott catheter patient also noticed to have a positive UA con cerning for cath versus UTI. On today's evaluation that is 03/23/2024, Patient is afebrile patient is currently on 3 L nasal cannula oxygen and denies having any shortness of breath, the patient denies any chest pain or cough, the patient denies any nausea vomiting did not have any abdominal pain and no diarrhea, mention feeling slightly better and appetite has improved. Patient did have a creatinine of 2.64 no CBC was done today blood culture negative Objective - Vital Signs Vital signs: Vital Signs Temp 97.7 F 03/23/24 08:00 Pulse 80 03/23/24 12:00 Resp 18 03/23/24 12:00 BP 96/55 03/23/24 12:00 Pulse Ox 100 03/23/24 12:00 FiO2 Intake & Output 03/22/24 03/23/24 03/23/24 18:59 06:59 18:59 Intake Total 1674 358 Output Total 1075 550 Balance 599 -550 358 Weight 105.5 kg Intake: Oral 1674 358 Output: Urine 1075 550 Other: Voiding Method Indwelling Catheter Indwelling Catheter Indwelling Catheter # Bowel Movements 1 1 - Exam GENERAL DESCRIPTION: An elderly male lying in bed in no distress RESPIRATORY SYSTEM: Unlabored breathing , decreased breath sounds at bases HEART: S1 S2 regular rate and rhythm , ABDOMEN: Soft , no tenderness EXTREMITIES: No edema feet - Labs CBC & Chem 7: 03/22/24 07:09 03/23/24 03:16 Labs: Abnormal Lab Results - Last 24 Hours (Table) 03/23/24 Range/Units 03:16 Sodium 131 L (137-145) mmol/L BUN 127 H* (9-20) mg/dL Creatinine 2.64 H (0.66-1.25) mg/dL Calcium 8.3 L (8.4-10.2) mg/dL Assessment and Plan (1) UTI (urinary tract infection) Current Visit: Yes Status: Acute Code(s): N39.0 - URINARY TRACT INFECTION, SITE NOT SPECIFIED SNOMED Code(s): 80647283 Plan: 1patient presented to hospital with multiple 25 his Knott catheter in this patient who did have a significantly positive UA some lower abdominal discomfort concerning for cystitis likely from enteric gram-negative pathogen, patient urine is growing Enterococcus which has been finalized as VRE 2patient to continue with daptomycin while inpatient and will transition to oral on discharge Dictation was produced using [employer] dictation software. please excuse any grammatical, word or spelling errors. Time with Patient: Less than 30
--- NOTE | 2024-03-23 18:14 | P.PN ---
Subjective patient is seen for follow-up for chronic kidney disease. He is currently being diuresed. Renal function is stable with serum creatinine at about 2.5 mg/dL.. BUN disproportionately elevated. Awaiting stool for occult blood. No signs of active GI bleed. Patient is not maintained on steroids. patient is not a candidate for dobutamine due to multiple runs of tachycardia and PVCs and risk of sustained V. tach. No significant complaints today. urine output at 1.6 L for 24 hours. Objective - Vital Signs Vital signs: Vital Signs Temp 97.7 F 03/23/24 08:00 Pulse 67 03/23/24 16:00 Resp 18 03/23/24 16:00 BP 93/58 03/23/24 16:00 Pulse Ox 94 L 03/23/24 16:00 FiO2 Intake & Output 03/22/24 03/23/24 03/23/24 18:59 06:59 18:59 Intake Total 1674 598 Output Total 1075 550 Balance 599 -550 598 Weight 105.5 kg Intake: Oral 1674 598 Output: Urine 1075 550 Other: Voiding Method Indwelling Catheter Indwelling Catheter Indwelling Catheter # Bowel Movements 1 1 - Exam patient is awake, comfortable, no acute distress. Examination of the heart S1 and S2 Examination of the lungs bilateral breath sounds are heard Abdomen is soft nontender Examination of lower extremities shows chronic skin changes with 2+ edema bilaterally [employer] exam grossly intact - Labs CBC & Chem 7: 03/22/24 07:09 03/23/24 03:16 Labs: Abnormal Lab Results - Last 24 Hours (Table) 03/23/24 Range/Units 03:16 Sodium 131 L (137-145) mmol/L BUN 127 H* (9-20) mg/dL Creatinine 2.64 H (0.66-1.25) mg/dL Calcium 8.3 L (8.4-10.2) mg/dL Assessment and Plan Assessment: 1. Acute kidney injury secondary to ATN secondary to cardiorenal syndrome. Creatinine recently in the range of 2.4-2.6. BUN is disproportionately elevated. Consider underlying GI bleed. Discussed with patient that he may need to start renal replacement therapy if no further improvement in renal function and volume status. BUN has decreased today. Serum creatinine about the same therefore I will hold off on dialysis for now. 2. Chronic kidney disease stage IIIa with baseline creatinine 1.3-1.4 from October and November 2023. Kidney ultrasound from March 01, 2024 showed normal- sized kidneys without any hydronephrosis. 3. Acute on chronic systolic CHF with ejection fraction of 30 to 35% with mild to moderate mitral and tricuspid vegetation and moderate pulmonary hypertension. Status post AICD. 4. Volume overload. 5. Anemia of chronic kidney disease. Iron deficiency noted. Status post IV iron. Stool for occult blood is negative Plan: continue to diurese patient. Bumex dose has been decreased. not a candidate for inotropic agents due to risk of sustained V. tach Continue with Knott catheter Repeat labs in a.m.
--- NOTE | 2024-03-23 23:11 | PN ---
PROGRESS NOTE DATE OF SERVICE: 03/22/2024 SUBJECTIVE: This is a 78-year-old gentleman admitted with COPD, CHF, is being closely monitored. No chest pain. No palpitations. No fever. ECF rehab is also being pursued. OBJECTIVE: VITAL SIGNS: Pulse 89, blood pressure 103/58, respirations 18. HEENT: Conjunctivae normal. NECK: No JVD. CARDIOVASCULAR: S1, S2. RESPIRATIONS: Breath sounds diminished at the bases. A few scattered rhonchi. ABDOMEN: Soft. NERVOUS SYSTEM: Nonfocal. LABORATORY DATA: Hemoglobin 8.1, creatinine is 2.6. ASSESSMENT: 1. Shortness of breath, possibly a combination of chronic obstructive pulmonary disease, congestive heart failure acute exacerbation, history of Knott catheter malfunction. 2. Acute on chronic kidney disease with baseline chronic kidney disease, stage 3. 3. Bilateral foot cellulitis. 4. Thrombocytopenia. 5. Vancomycin-resistant enterococcus in the urine. RECOMMENDATIONS: Recommend to continue current management and continue symptomatic treatment. Otherwise, closely monitor. The platelets are stable at this time. We will continue to monitor. Guarded prognosis. Further recommendations to follow. MMODL / IJN: [id number] /
[2024-03-24 05:42] LABS: Anisocytosis Slight; Basophils % (A) 0 %; Eosinophils # (A) 0.1 k/uL (0-0.7); Eosinophils % (A) 1 %; HCT 27.4 % (39.0-53.0); Hypochromasia Marked; Lymphocytes # (A) 0.5 k/uL (1.0-4.8); Lymphocytes % (A) 8 %; MCH 27.4 pg (25.0-35.0); MCHC 29.1 g/dL (31.0-37.0); MCV 94.3 fL (80.0-100.0); Macrocytosis Slight; Monocytes # (A) 0.4 k/uL (0-1.0); Monocytes % (A) 6 %; Neutrophils # (A) 5.6 k/uL (1.3-7.7); Neutrophils % (A) 84 %; Poikilocytosis Slight; RDW 19.3 % (11.5-15.5); WBC 6.6 k/uL (3.8-10.6)
[2024-03-24 05:57] LABS: Platelet Count 63 k/uL (150-450)
[2024-03-24 05:58] LABS: ALT 9 U/L (4-49); AST 21 U/L (17-59); African American GFR (CKD) 25 (>60 ml/min/1.73 sqM); Albumin 3.5 g/dL (3.5-5.0); Alkaline Phosphatase 117 U/L (38-126); Anion Gap 8 mmol/L; Calcium 8.5 mg/dL (8.4-10.2); Carbon Dioxide 25 mmol/L (22-30); Chloride 100 mmol/L (98-107); Glucose 100 mg/dL (74-99); Non-African American GFR(CKD) 22 (>60 ml/min/1.73 sqM); Potassium 3.7 mmol/L (3.5-5.1); Sodium 133 mmol/L (137-145); Total Bilirubin 1.3 mg/dL (0.2-1.3); Total Protein 5.8 g/dL (6.3-8.2)
[2024-03-24 06:01] LABS: Blood Urea Nitrogen 120 mg/dL (9-20)
[2024-03-24] MEDS ORDERED: SALINE NASAL GEL 14.1 GM TUBE NASAL PRN (10:47)
[2024-03-24] MEDS: hydrALAZINE HCL 25 MG TAB PO SCH (12:47)
--- NOTE | 2024-03-24 12:52 | P.PN ---
Progress Note - Text Diagnosis Severe cardiomyopathy with class III unstable heart failure Frequent nonsustained VT BUN of 134 consistent with the poorest prognosis for heart failure The strategy of afterload reduction with hydralazine and nitrates being increased steadily but on a daily basis, while lowering the dose of diuretics has had the following effect 1. It has stabilized the patient's condition and he appears less short of breath with lesser lower extremity edema 2. He continues to make urine on hydralazine and nitrates with lesser amounts of diuretics 3. He has lost about 4 pounds of weight over the weekend 4. His BUN has decreased from 140 down to 120 with a minimal increase in creatinine Plan Discussed with the patient and Absolutely NO midodrine. This drug is harmful in the setting of congestive heart failure as well as renal failure Midodrine increases preload secondary to veno constriction resulting in worsening congestion Midodrine increases afterload resulting in reduction in stroke-volume with redu smita perfusion and further worsening of congestion It does so despite guideline directed medical treatment as has been noted in the study from [facility] The definition of hypotension must be tailored to the patient's medical and cardiac conditions In the case of severe cardiomyopathy with severe heart failure low blood pressure should be maintained to promote cardiac ejection and output, as is commonly done in advanced heart failure centers ALL heart failure drugs that have shown a morbidity and mortality benefit have been afterload reducers including hydralazine nitrates, carvedilol, PIPPA inhibitors, angiotensin receptor blockers, and Entresto The plan for this week is a gradual daily increase in isosorbide and hydralazine Today we have increased the dose of hydralazine to 25 mg 4 times a day and Isosorbide to 15 mg 3 times a day Recommend increasing it by 5 mg equivalents for both drugs on a daily basis Blood pressure goal is 90 mmHg in the absence of syncope and escalating increases in creatinine (not just a mild increase in creatinine) Mild increases in creatinine do NOT warrant reduction in afterload therapy
--- NOTE | 2024-03-24 13:03 | P.PN ---
Subjective Progress Note Date: 03/24/24 The patient is a 78-year-old male with past medical history of multiple comorbid conditions, who is currently admitted with congestive heart failure. He had increased edema and cough. Heart failure medications have been maximized over the course of his admission. He continues to have shortness of breath with minimal exertion. He is currently resting comfortably in the chair; legs elevated. Edema is i mproving/ He denies any chest pain or pressure. No tachypnea at rest. GENERAL: Well-appearing, well-nourished and in no acute distress. NECK: Supple without JVD or thyromegaly. LUNGS: Breath sounds severely diminished to auscultation bilaterally. Respiration equal and unlabored. Fine crackles at the bases. HEART: Regular rate and rhythm without murmurs, rubs or gallops. S1 and S2 heard. EXTREMITIES: Normal range of motion, +2 lower extremity edema. Hyperpigmentation. No clubbing or cyanosis. TELEMETRY: Sinus rhythm overnight IMPRESSION: CAD nonischemic cardiomyopathy, EF 30-35% from 10/2023. AICD implantation persistent atrial fibrillation, hypertension hyperlipidemia Shortness of breath Extremity edema UTI PLAN: Continue to maximize hydralazine and isosorbide for afterload reduction Do not hold cardiac medications unless systolic is below 80 mmHg Further recommendations to be based upon clinical course I am dictating on behalf of Dr Roberto Medina's history/physical and assess ment/plan. Objective - Vital Signs Vital signs: Vital Signs Temp 98.0 F 03/24/24 08:20 Pulse 74 03/24/24 12:00 Resp 16 03/24/24 12:00 BP 94/58 03/24/24 12:00 Pulse Ox 95 03/24/24 12:00 FiO2 Intake & Output 03/23/24 03/24/24 03/24/24 18:59 06:59 18:59 Intake Total 956 400 Output Total 800 550 Balance 156 -550 400 Weight 104.6 kg Intake: Oral 956 400 Output: Urine 800 550 Other: Voiding Method Indwelling Catheter Indwelling Catheter Indwelling Catheter # Bowel Movements 1 1 - Labs CBC & Chem 7: 03/24/24 05:00 03/24/24 05:00 Labs: Abnormal Lab Results - Last 24 Hours (Table) 06/02/24 06/02/24 Range/Units 05:00 05:00 RBC 2.90 L (4.30-5.90) m/uL Hgb 8.0 L (13.0-17.5) gm/dL Hct 27.4 L (39.0-53.0) % MCHC 29.1 L (31.0-37.0) g/dL RDW 19.3 H (11.5-15.5) % Plt Count 63 L (150-450) k/uL Lymphocytes # 0.5 L (1.0-4.8) k/uL Sodium 133 L (137-145) mmol/L BUN 120 H* (9-20) mg/dL Creatinine 2.71 H (0.66-1.25) mg/dL Glucose 100 H (74-99) mg/dL Total Protein 5.8 L (6.3-8.2) g/dL Microbiology - Last 24 Hours (Table) 03/18/24 14:33 Blood Culture - Final Blood
--- NOTE | 2024-03-24 14:24 | P.PN ---
Subjective Progress Note Date: 03/24/24 Principal diagnosis: Acute on chronic hypoxic respiratory failure secondary to acute exacerbation of chronic systolic congestive heart failure with severe cardiomyopathy ejection f raction of 20 to 25% This is a 78-year-old female patient, presented today because of worsening sh ortness of breath. She has known history of severe cardiomyopathy with ejection fraction of 20 to 25%, chronic kidney disease, history of nonsustained VT has an AICD in place, chronic A-fib, hypertension hyperlipidemia and obesity and previous hospitalization for decompensated heart failure, renal failure and fluid overload. The patient was last discharged from the hospital on 03/07/2024 to present back to the emergency department on 03/18/2020 forward worsening shortness of breath and decompensated heart failure. She also reports increased edema over the past 24 to 48 hours. She noticed that her Knott catheter was not draining. In October 2023, her creatinine was around 1.3-1.4. However, subsequently, there has been progressive worsening renal function and the patient currently has stage IV chronic kidney disease with a recent creatinine of 2.5. During this current admission, her creatinine was at 2.6 with a BUN of 151. Potassium level was at 3.7. White cell count is at 9.30 hemoglobin 8.9. The Knott catheter was exchanged and the patient was given IV Lasix and admitted to the hospital. She is currently on oxygen at 3 L with a pulse ox of 97% and the chest x-ray is consistent with cardiomegaly and CHF and pulmonary edema. Rest of the blood work shows a proBNP level of 39,000, troponin of 0.07, LFTs are normal, and a UA showing 23 WBCs. 22 RBCs. +1 protein. Viral screen was negative. The patient is seen today March 19, 2024 in follow-up in the emergency department. He is currently resting on a stretcher. Awake and alert in no acute distress. He is currently maintaining O2 saturations in the 90s on 3 L/min per nasal cannula. He remains on IV diuretics. Currently -1 L balance. Urine culture positive for group D Enterococcus. White count 6.7. Hemoglobin 7.7. Platelets 121. Sodium 133. Potassium 3.3. Bicarb 25. BUN 140. Creatinine 2.55. Glucose 108. He remains on ceftriaxone. Continued on heparin for DVT prophylaxis. The patient is seen today March 20, 2024 in follow-up on the selective care unit. He is currently sitting up in a chair at the bedside. Awake and alert in no acute distress. Feeling quite a bit better today compared to yesterday. He is maintaining O2 saturations in the upper 90s on 3 L/min per nasal cannula. Chest x-ray showing mild improvement of the pleural parenchymal changes most typical of mild CHF. Underlying COPD and chronic lung disease noted. Urine culture is positive for Enterococcus faecium VRE. Blood culture pending. White count 7.2. Hemoglobin 8.2. Platelets 95,000. Sodium 134. Potassium 3.5. Bicarb 25. BUN 137. Creatinine 2.50. Glucose 131. He is continued on Eliquis, Bumex 2 mg twice daily and antibiotics in the form of Unasyn. He is not currently on a +40 mL balance. Indwelling catheter remains in place. Reevaluated today on 03/21/24, patient remains on the cardiac floor, remains on diuretics, remains on oxygen at 2 L/min, continues to have negative fluid balance in the last few days, however the amount of negative balance is not significant roughly 1.5 L in the last 4 days clinically however the patient is feeling better with diuretics. X-ray continues to show some interstitial edema slight improvement compared to baseline. WBC count is 4.8 hemoglobin 8.2 electrolytes are normal BUN is up to 137 creatinine is 2.66 Reevaluate today on 03/22/2024, patient is doing better, breathing easier, continues to diurese, remains on diuretics, on 2 L nasal cannula with O2 sats of 97%. Overall the patient is improving but he is not quite ready for discharge. WBC count is 5.6 hemoglobin 8.1 BUN is up to 128 creatinine 2.60, patient remains on diuretics. Patient does have severe LV dysfunction. Remains on antibiotics in the form of daptomycin, remains on Bumex and he also remains on Aldactone. Pulmonary almonte he is on multiple bronchodilators as noted in the chart. Patient was reevaluated today on 03/24/2024, patient continues to do well, continues to diurese and responded well to diuretics, remains on oxygen however this morning his pulse ox on room air was in the 90s and he may have his oxygen off for now. Overall the patient is feeling better, breathing easier, his CBC is relatively unchanged basically normal electrolytes are normal BUN is 120 creatinine 2.71 Objective - Vital Signs Vital signs: Vital Signs Temp 98.0 F 03/24/24 08:20 Pulse 74 03/24/24 12:00 Resp 16 03/24/24 12:00 BP 94/58 03/24/24 12:00 Pulse Ox 95 03/24/24 12:00 FiO2 Intake & Output 03/23/24 03/24/24 03/24/24 18:59 06:59 18:59 Intake Total 956 400 Output Total 800 550 Balance 156 -550 400 Weight 104.6 kg Intake: Oral 956 400 Output: Urine 800 550 Other: Voiding Method Indwelling Catheter Indwelling Catheter Indwelling Catheter # Bowel Movements 1 1 - Exam GENERAL EXAM: Revealed 78-year-old white male on room air today HEAD: Normocephalic and atraumatic EYES: Normal reaction of pupils, equal size. NOSE: Clear with pink turbinates. THROAT: No erythema or exudates. NECK: No masses, no JVD. CHEST: No chest wall deformity. LUNGS: Crackles at the bases persist, rhonchi persist. CVS: S1 and S2 normal with no audible murmur, irregular rhythm. No extra heart sounds ABDOMEN: No hepatosplenomegaly, active bowel sounds, no guarding or rigidity. Small reducible periumbilical hernia SKIN: Chronic venous stasis changes of lower extremities, upper extremities ecchymosis is noted. And bruising easily. CENTRAL NERVOUS SYSTEM: No focal deficits, tone is normal in all 4 extremities. EXTREMITIES: There is moderate bilateral lower extremity nonpitting edema. No clubbing, or cyanosis. Peripheral pulses are intact. - Labs CBC & Chem 7: 03/24/24 05:00 03/24/24 05:00 Labs: Abnormal Lab Results - Last 24 Hours (Table) 03/24/24 03/24/24 Range/Units 05:00 05:00 RBC 2.90 L (4.30-5.90) m/uL Hgb 8.0 L (13.0-17.5) gm/dL Hct 27.4 L (39.0-53.0) % MCHC 29.1 L (31.0-37.0) g/dL RDW 19.3 H (11.5-15.5) % Plt Count 63 L (150-450) k/uL Lymphocytes # 0.5 L (1.0-4.8) k/uL Sodium 133 L (137-145) mmol/L BUN 120 H* (9-20) mg/dL Creatinine 2.71 H (0.66-1.25) mg/dL Glucose 100 H (74-99) mg/dL Total Protein 5.8 L (6.3-8.2) g/dL Microbiology - Last 24 Hours (Table) 03/18/24 14:33 Blood Culture - Final Blood Assessment and Plan Assessment: Impression: Acute on chronic hypoxic respiratory failure secondary to an acute exacerbation of chronic systolic congestive heart failure Severe cardiomyopathy with an ejection fraction of 20 to 25%, a most recent echocardiogram showed some improvement in ejection fraction of 30 to 35% with severe pulm hypertension. Chronic hypoxic respiratory failure secondary to above on 2 L of oxygen by nasal cannula Acute on chronic kidney injury, could be related to anatomic problems with the Knott catheter/obstruction the Knott catheter has been replaced. ATN cannot be completely ruled out. Chronic kidney disease stage IIIa History of nonsustained VT and the patient has an AICD in place Chronic atrial fibrillation, currently on anticoagulation with Eliquis Hypertension Hyperlipidemia Obesity with a BMI of 31.1 Fluid overload with lower extremity and abdominal wall edema VRE urinary tract infection Recommendation: Continue present course of treatment including diuretics Patient is now off oxygen and he is on room air Continue daptomycin for VRE UTI. Will continue to follow Time with Patient: Less than 30
[2024-03-24] MEDS: ISOSORBIDE DINITRATE 10 MG TAB PO SCH (16:05)
--- NOTE | 2024-03-24 17:18 | P.PN ---
Subjective patient is seen for follow-up for chronic kidney disease. He is currently being diuresed. Renal function is stable with serum creatinine at about 2.6 mg/dL.. BUN disproportionately elevated. Stool for occult blood is negative. Patient is not maintained on steroids. patient is not a candidate for dobutamine due to multiple runs of tachycardia a nd PVCs and risk of sustained V. tach. No significant complaints today. Good appetite. No nausea or vomiting. urine output at 1.3 L for 24 hours. Objective - Vital Signs Vital signs: Vital Signs Temp 98.0 F 03/24/24 08:20 Pulse 74 03/24/24 14:00 Resp 16 03/24/24 14:00 BP 94/58 03/24/24 12:00 Pulse Ox 95 03/24/24 12:00 FiO2 Intake & Output 03/23/24 03/24/24 03/24/24 18:59 06:59 18:59 Intake Total 956 518 Output Total 800 550 Balance 156 -550 518 Weight 104.6 kg Intake: Oral 956 518 Output: Urine 800 550 Other: Voiding Method Indwelling Catheter Indwelling Catheter Indwelling Catheter # Bowel Movements 1 1 - Exam patient is awake, comfortable, no acute distress. Examination of the heart S1 and S2 Examination of the lungs bilateral breath sounds are heard Abdomen is soft nontender Examination of lower extremities shows chronic skin changes with 2+ edema bilaterally [employer] exam grossly intact - Labs CBC & Chem 7: 03/24/24 05:00 03/24/24 05:00 Labs: Abnormal Lab Results - Last 24 Hours (Table) 03/24/24 03/24/24 Range/Units 05:00 05:00 RBC 2.90 L (4.30-5.90) m/uL Hgb 8.0 L (13.0-17.5) gm/dL Hct 27.4 L (39.0-53.0) % MCHC 29.1 L (31.0-37.0) g/dL RDW 19.3 H (11.5-15.5) % Plt Count 63 L (150-450) k/uL Lymphocytes # 0.5 L (1.0-4.8) k/uL Sodium 133 L (137-145) mmol/L BUN 120 H* (9-20) mg/dL Creatinine 2.71 H (0.66-1.25) mg/dL Glucose 100 H (74-99) mg/dL Total Protein 5.8 L (6.3-8.2) g/dL Microbiology - Last 24 Hours (Table) 03/18/24 14:33 Blood Culture - Final Blood Assessment and Plan Assessment: 1. Acute kidney injury secondary to ATN secondary to cardiorenal syndrome. Creatinine recently in the range of 2.4-2.6. BUN is disproportionately elevated. Consider underlying GI bleed. Discussed with patient that he may need to start renal replacement therapy if no further improvement in renal function and volume status. BUN has decreased today. Serum creatinine about the same therefore I will hold off on dialysis for now. 2. Chronic kidney disease stage IIIa with baseline creatinine 1.3-1.4 from October and November 2023. Kidney ultrasound from March 01, 2024 showed normal- sized kidneys without any hydronephrosis. 3. Acute on chronic systolic CHF with ejection fraction of 30 to 35% with mild to moderate mitral and tricuspid vegetation and moderate pulmonary hypertension. Status post AICD. Not a candidate for inotropic agents due to increased risk of sustained V. tach. 4. Volume overload. 5. Anemia of chronic kidney disease. Iron deficiency noted. Status post IV iron. Stool for occult blood is negative Plan: continue to diurese patient. Bumex dose has been decreased. not a candidate for inotropic agents due to risk of sustained V. tach. Continue with hydralazine and nitrates for afterload reduction. Monitor for hypotension. Continue with Knott catheter Repeat labs in a.m.
--- NOTE | 2024-03-24 17:50 | P.PN ---
Subjective Progress Note Date: 03/24/24 Principal diagnosis: Urinary retention Recent Bladder scan was 800 cc. The patient was able to void 100 cc. 2 attempts to straight catheterize him were unsuccessful. Ultimately, a Knott catheter was placed, with return of 400 cc. The catheter remains in place, draining clear yellow urine. The patient has no complaints. His renal function has failed to improve with Knott catheter drainage. Objective - Vital Signs Vital signs: Vital Signs Temp 98.0 F 03/24/24 08:20 Pulse 90 03/24/24 16:00 Resp 19 03/24/24 16:00 BP 91/53 03/24/24 16:00 Pulse Ox 95 03/24/24 16:00 FiO2 Intake & Output 03/23/24 03/24/24 03/24/24 18:59 06:59 18:59 Intake Total 956 718 Output Total 800 550 Balance 156 -550 718 Weight 104.6 kg Intake: Oral 956 718 Output: Urine 800 550 Other: Voiding Method Indwelling Catheter Indwelling Catheter Indwelling Catheter # Bowel Movements 1 1 - Constitutional General appearance: Present: average body habitus, cooperative, no acute distress - Psychiatric Psychiatric: Present: A&O x's 3 - Labs CBC & Chem 7: 03/24/24 05:00 03/24/24 05:00 Labs: Abnormal Lab Results - Last 24 Hours (Table) 03/24/24 03/24/24 Range/Units 05:00 05:00 RBC 2.90 L (4.30-5.90) m/uL Hgb 8.0 L (13.0-17.5) gm/dL Hct 27.4 L (39.0-53.0) % MCHC 29.1 L (31.0-37.0) g/dL RDW 19.3 H (11.5-15.5) % Plt Count 63 L (150-450) k/uL Lymphocytes # 0.5 L (1.0-4.8) k/uL Sodium 133 L (137-145) mmol/L BUN 120 H* (9-20) mg/dL Creatinine 2.71 H (0.66-1.25) mg/dL Glucose 100 H (74-99) mg/dL Total Protein 5.8 L (6.3-8.2) g/dL Microbiology - Last 24 Hours (Table) 03/18/24 14:33 Blood Culture - Final Blood Assessment and Plan (1) Retention of urine, unspecified Current Visit: Yes Status: Acute Code(s): R33.9 - RETENTION OF URINE, UNSPECIFIED SNOMED Code(s): 674845038 Plan: The patient continues to receive tamsulosin. The Knott catheter may be removed for a voiding trial. If again he empties his bladder incompletely, I would suggest the catheter be replaced and he undergo urodynamic testing and cystos copy as an outpatient.
--- NOTE | 2024-03-25 04:53 | PN ---
PROGRESS NOTE DATE OF SERVICE: 03/24/2024 SUBJECTIVE: This is a 78-year-old gentleman admitted with COPD, CHF acute exacerbation. The patient has no chest pain or palpitation. The patient is still having leg edema. PHYSICAL EXAMINATION: VITAL SIGNS: Pulse is 56, blood pressure 102/50, respirations 18. HEENT: Conjunctivae normal. CARDIOVASCULAR: S1, S2. RESPIRATIONS: Few scattered rhonchi. ABDOMEN: Soft, nontender. LABORATORY DATA: Hemoglobin 8, creatinine is 2.71. ASSESSMENT: 1. Shortness of breath, possibly combination of chronic obstructive pulmonary disease and congestive heart failure acute exacerbation. 2. History of Knott catheter malfunction. 3. Acute on chronic kidney disease with baseline chronic kidney disease stage 3. 4. Bilateral foot cellulitis. 5. Thrombocytopenia. 6. Vancomycin-resistant enterococcus in the urine. RECOMMENDATIONS: Recommend to continue current management and treatment. Otherwise, at this time I would recommend repeat labs in the morning. Increase ambulation. Can follow closely with Cardiology. Guarded prognosis. Further recommendations to follow. MMODL / IJN: [id number] /
[2024-03-25 08:33] VITALS: RESP 20
[2024-03-25 09:10] LABS: Anisocytosis Slight; Basophils % (A) 0 %; Eosinophils % (A) 0 %; HCT 28.5 % (39.0-53.0); HGB 8.3 gm/dL (13.0-17.5); Hypochromasia Marked; Lymphocytes # (A) 0.4 k/uL (1.0-4.8); Lymphocytes % (A) 3 %; MCH 27.3 pg (25.0-35.0); MCV 94.2 fL (80.0-100.0); Macrocytosis Slight; Mean Platelet Volume 10.7; Monocytes # (A) 0.5 k/uL (0-1.0); Monocytes % (A) 5 %; Neutrophils # (A) 10.3 k/uL (1.3-7.7); Neutrophils % (A) 91 %; Poikilocytosis Slight; RBC 3.02 m/uL (4.30-5.90); RDW 19.4 % (11.5-15.5); WBC 11.4 k/uL (3.8-10.6)
[2024-03-25 09:22] LABS: Platelet Count 83 k/uL (150-450)
[2024-03-25 09:23] LABS: African American GFR (CKD) 23 (>60 ml/min/1.73 sqM); Anion Gap 9 mmol/L; Calcium 8.8 mg/dL (8.4-10.2); Carbon Dioxide 26 mmol/L (22-30); Chloride 98 mmol/L (98-107); Glucose 144 mg/dL (74-99); Non-African American GFR(CKD) 20 (>60 ml/min/1.73 sqM); Potassium 3.8 mmol/L (3.5-5.1); Sodium 133 mmol/L (137-145)
[2024-03-25 09:28] LABS: Blood Urea Nitrogen 115 mg/dL (9-20)
--- NOTE | 2024-03-25 11:07 | P.PN ---
Subjective Patient is seen in follow-up for acute kidney injury on chronic kidney disease. On oral Bumex and Farxiga. Renal function fairly stable. BUN trending down. Nonoliguric. Family present at bedside. Vital signs are stable. General: No acute distress. HEENT: Head exam is unremarkable. LUNGS: No audible rhonchi or wheezes. HEART: Rate and Rhythm are regular. ABDOMEN: Nontender. EXTREMITITES: 2+ edema. Nontender. Objective - Vital Signs Vital signs: Vital Signs Temp 97.9 F 03/25/24 08:00 Pulse 82 03/25/24 08:11 Resp 20 03/25/24 08:00 BP 107/57 03/25/24 08:00 Pulse Ox 93 L 03/25/24 08:28 FiO2 Intake & Output 03/24/24 03/25/24 03/25/24 18:59 06:59 18:59 Intake Total 958 462 720 Output Total 1000 Balance 958 -538 720 Weight 107.3 kg Intake: Oral 958 462 720 Output: Urine 1000 Other: Voiding Method Indwelling Catheter Indwelling Catheter Indwelling Catheter - Labs CBC & Chem 7: 03/25/24 08:23 03/25/24 08:23 Labs: Abnormal Lab Results - Last 24 Hours (Table) 03/25/24 03/25/24 Range/Units 08:23 08:23 WBC 11.4 H (3.8-10.6) k/uL RBC 3.02 L (4.30-5.90) m/uL Hgb 8.3 L (13.0-17.5) gm/dL Hct 28.5 L (39.0-53.0) % MCHC 29.0 L (31.0-37.0) g/dL RDW 19.4 H (11.5-15.5) % Plt Count 83 L (150-450) k/uL Neutrophils # 10.3 H (1.3-7.7) k/uL Lymphocytes # 0.4 L (1.0-4.8) k/uL Sodium 133 L (137-145) mmol/L BUN 115 H* (9-20) mg/dL Creatinine 2.92 H (0.66-1.25) mg/dL Glucose 144 H (74-99) mg/dL Assessment and Plan Plan: Assessment: 1. Acute kidney injury secondary to ATN secondary to cardiorenal syndrome. Creatinine recently in the range of 2.4-2.6 -2.92 today. 2. Chronic kidney disease stage IIIa with baseline creatinine 1.3-1.4 from October and November 2023. Kidney ultrasound from March 01, 2024 showed normal- sized kidneys without any hydronephrosis. 3. Acute on chronic systolic CHF with ejection fraction of 30 to 35% with mild to moderate mitral and tricuspid vegetation and moderate pulmonary hypertension. Status post AICD. 4. Volume overload. 5. Anemia of chronic kidney disease. Status post IV iron. On Aranesp. Plan: Maintain Bumex. 40 mg IV Lasix once this afternoon. Low-salt diet and 1500 cc fluid restriction. Has chronic Knott catheter and is being followed by urology. Continue to monitor renal function and urine output. Avoid nephrotoxins. Discussed low-salt diet and fluid restriction of less than 50 ounces per day upon discharge. Repeat BMP and magnesium level 2 to 3 days postdischarge. Case discussed with cardiology. Patient has end-stage cardiomyopathy with guarded prognosis.
--- NOTE | 2024-03-25 14:59 | P.PN ---
Subjective Progress Note Date: 03/25/24 Principal diagnosis: Chronic kidney disease, CHF, UTI. This is a 78-year-old female patient, presented today because of worsening shortness of breath. She has known history of severe cardiomyopathy with ejection fraction of 20 to 25%, chronic kidney disease, history of nonsustained VT has an AICD in place, chronic A-fib, hypertension hyperlipidemia and obesity and previous hospitalization for decompensated heart failure, renal failure and fluid overload. The patient was last discharged from the hospital on 03/07/2024 to present back to the emergency department on 03/18/2020 forward worsening shortness of breath and decompensated heart failure. She also reports increased edema over the past 24 to 48 hours. She noticed that her Knott catheter was not draining. In October 2023, her creatinine was around 1.3-1.4. However, subsequently, there has been progressive worsening renal function and the patient currently has stage IV chronic kidney disease with a recent creatinine of 2.5. During this current admission, her creatinine was at 2.6 with a BUN of 151. Potassium level was at 3.7. White cell count is at 9.30 hemoglobin 8.9. The Knott catheter was exchanged and the patient was given IV Lasix and admitted to the hospital. She is currently on oxygen at 3 L with a pulse ox of 97% and the chest x-ray is consistent with cardiomegaly and CHF and pulmonary edema. Rest of the blood work shows a proBNP level of 39,000, troponin of 0.07, LFTs are normal, and a UA showing 23 WBCs. 22 RBCs. +1 protein. Viral screen was negative. The patient is seen today March 19, 2024 in follow-up in the emergency department. He is currently resting on a stretcher. Awake and alert in no acute distress. He is currently maintaining O2 saturations in the 90s on 3 L/min per nasal cannula. He remains on IV diuretics. Currently -1 L balance. Urine culture positive for group D Enterococcus. White count 6.7. Hemoglobin 7.7. Platelets 121. Sodium 133. Potassium 3.3. Bicarb 25. BUN 140. Creatinine 2.55. Glucose 108. He remains on ceftriaxone. Continued on heparin for DVT prophylaxis. The patient is seen today March 20, 2024 in follow-up on the selective care unit. He is currently sitting up in a chair at the bedside. Awake and alert in no acute distress. Feeling quite a bit better today compared to yesterday. He is maintaining O2 saturations in the upper 90s on 3 L/min per nasal cannula. Chest x-ray showing mild improvement of the pleural parenchymal changes most typical of mild CHF. Underlying COPD and chronic lung disease noted. Urine culture is positive for Enterococcus faecium VRE. Blood culture pending. White count 7.2. Hemoglobin 8.2. Platelets 95,000. Sodium 134. Potassium 3.5. Bicarb 25. BUN 137. Creatinine 2.50. Glucose 131. He is continued on Eliquis, Bumex 2 mg twice daily and antibiotics in the form of Unasyn. He is not currently on a +40 mL balance. Indwelling catheter remains in place. Reevaluated today on 03/21/24, patient remains on the cardiac floor, remains on diuretics, remains on oxygen at 2 L/min, continues to have negative fluid balance in the last few days, however the amount of negative balance is not significant roughly 1.5 L in the last 4 days clinically however the patient is feeling better with diuretics. X-ray continues to show some interstitial edema slight improvement compared to baseline. WBC count is 4.8 hemoglobin 8.2 electrolytes are normal BUN is up to 137 creatinine is 2.66 Reevaluate today on 03/22/2024, patient is doing better, breathing easier, continues to diurese, remains on diuretics, on 2 L nasal cannula with O2 sats of 97%. Overall the patient is improving but he is not quite ready for discharge. WBC count is 5.6 hemoglobin 8.1 BUN is up to 128 creatinine 2.60, patient remains on diuretics. Patient does have severe LV dysfunction. Remains on antibiotics in the form of daptomycin, remains on Bumex and he also remains on Aldactone. Pulmonary almonte he is on multiple bronchodilators as noted in the chart. Patient was reevaluated today on 03/24/2024, patient continues to do well, continues to diurese and responded well to diuretics, remains on oxygen however this morning his pulse ox on room air was in the 90s and he may have his oxygen off for now. Overall the patient is feeling better, breathing easier, his CBC is relatively unchanged basically normal electrolytes are normal BUN is 120 creatinine 2.71 Progress note dated March 25, 2024. The patient is seen today in room 377. Currently the patient is on room air. The patient's urine was positive for Enterococcus faecium. The patient is on daptomycin. The patient is not receiving any IV fluids. Current labs today, include a white count 11.4, hemoglobin 8.3, hematocrit 28.5, and a platelet count is only 83,000. Sodium 133, potassium 3.8, chlorides 98, CO2 26, BUN 115, creatinine 2.92. Glucose is 144. Calcium is 8.8. Objective - Vital Signs Vital signs: Vital Signs Temp 97.9 F 03/25/24 08:00 Pulse 60 03/25/24 13:25 Resp 20 03/25/24 12:00 BP 99/49 03/25/24 12:00 Pulse Ox 96 03/25/24 12:00 FiO2 Intake & Output 03/24/24 03/25/24 03/25/24 18:59 06:59 18:59 Intake Total 958 462 720 Output Total 1000 Balance 958 -538 720 Weight 107.3 kg Intake: Oral 958 462 720 Output: Urine 1000 Other: Voiding Method Indwelling Catheter Indwelling Catheter Indwelling Catheter - Exam No acute distress, oriented 3. HEENT examination is grossly unremarkable. Mucous membranes are moist. No oral lesions. Neck supple. Full range of motion. No adenopathy thyromegaly or neck vein distention. Cardiovascular examination reveals irregular rhythm and rate. S1-S2 normal. No S3 or S4. No discernible murmur noted. Lungs reveal scattered rhonchi and crackles. Breath sounds equal. Saturations are more than adequate, on room air. Abdomen soft bowel sounds are heard. No masses or tenderness. Reducible p eriumbilical hernia. Extremities are intact. No cyanosis or clubbing. Mild edema noted. Skin is without rash or lesion. Neurologic examination is brief but nonfocal. - Labs CBC & Chem 7: 03/25/24 08:23 03/25/24 08:23 Labs: Abnormal Lab Results - Last 24 Hours (Table) 03/25/24 03/25/24 Range/Units 08:23 08:23 WBC 11.4 H (3.8-10.6) k/uL RBC 3.02 L (4.30-5.90) m/uL Hgb 8.3 L (13.0-17.5) gm/dL Hct 28.5 L (39.0-53.0) % MCHC 29.0 L (31.0-37.0) g/dL RDW 19.4 H (11.5-15.5) % Plt Count 83 L (150-450) k/uL Neutrophils # 10.3 H (1.3-7.7) k/uL Lymphocytes # 0.4 L (1.0-4.8) k/uL Sodium 133 L (137-145) mmol/L BUN 115 H* (9-20) mg/dL Creatinine 2.92 H (0.66-1.25) mg/dL Glucose 144 H (74-99) mg/dL Assessment and Plan Assessment: Acute on chronic hypoxemic respiratory failure secondary to acute exacerbation of chronic systolic CHF. Severe cardiomyopathy with ejection fraction of 20 to 25%. Severe pulmonary hypertension. Chronic hypoxemic respiratory failure. Acute on chronic kidney disease. Stage IIIa chronic kidney disease. History of nonsustained ventricular tachycardia, status post AICD. Chronic atrial fibrillation. Hypertension. Hyperlipidemia. Obesity. VRE urinary tract infection. Plan: Plan dated March 25, 2024. The patient continues on appropriate antibiotics. The patient is currently on daptomycin for his Enterococcus infection. The patient is not receiving any IV fluids. The patient is on room air. The patient denies any respiratory dif ficulty or distress. We will continue to follow the patient and make recommendations along the way. Labs, x-rays, and medications are reviewed. The patient's overall prognosis remains guarded. Time with Patient: Less than 30
--- NOTE | 2024-03-25 15:00 | P.PN ---
Subjective Progress Note Date: 03/25/24 Principal diagnosis: Heart failure The patient is a pleasant 78-year-old gentleman with a past medical history significant for severe nonischemic cardiomyopathy status post AICD as well as atrial fibrillation and hypertension and dyslipidemia and multiple comorbid conditions including recurrent hospital admission with heart failure who was admitted to the hospital again with heart failure. March 25, 2024 The patient was seen and evaluated this morning. He is doing slightly better. He is not hypoxic at this point. He continues to have bilateral lower extremities edema. Currently he is on oral diuretics. Currently he is on Bumex and has been somewhat doing better. BUN continues to be elevated but down from yesterday. Creatinine continues to be elevated but stable. Hemoglobin is stable as well. Examination is remarkable for normal S1 and S2 and systolic murmur and diminished breathing sounds bilaterally and bilateral lower extremities edema noted Assessment Heart failure exacerbation with reduced ejection fraction Severe cardiomyopathy Atrial fibrillation Status post AICD Multiple comorbid conditions Plan Continue the current medical regimen Continue Bumex orally Continue monitor the BUN and creatinine and hemoglobin Monitor the patient for additional 24 hours Follow-up with the patient Objective - Vital Signs Vital signs: Vital Signs Temp 97.9 F 03/25/24 08:00 Pulse 60 03/25/24 13:25 Resp 20 03/25/24 12:00 BP 99/49 03/25/24 12:00 Pulse Ox 96 03/25/24 12:00 FiO2 Intake & Output 03/24/24 03/25/24 03/25/24 18:59 06:59 18:59 Intake Total 958 462 720 Output Total 1000 Balance 958 -538 720 Weight 107.3 kg Intake: Oral 958 462 720 Output: Urine 1000 Other: Voiding Method Indwelling Catheter Indwelling Catheter Indwelling Catheter - Labs CBC & Chem 7: 03/25/24 08:23 03/25/24 08:23 Labs: Abnormal Lab Results - Last 24 Hours (Table) 03/25/24 03/25/24 Range/Units 08:23 08:23 WBC 11.4 H (3.8-10.6) k/uL RBC 3.02 L (4.30-5.90) m/uL Hgb 8.3 L (13.0-17.5) gm/dL Hct 28.5 L (39.0-53.0) % MCHC 29.0 L (31.0-37.0) g/dL RDW 19.4 H (11.5-15.5) % Plt Count 83 L (150-450) k/uL Neutrophils # 10.3 H (1.3-7.7) k/uL Lymphocytes # 0.4 L (1.0-4.8) k/uL Sodium 133 L (137-145) mmol/L BUN 115 H* (9-20) mg/dL Creatinine 2.92 H (0.66-1.25) mg/dL Glucose 144 H (74-99) mg/dL
[2024-03-25] MEDS: FUROSEMIDE 10 MG/ML 4 ML VIAL IV ONE (15:30)
[2024-03-25 15:35] VITALS: BMI 31.1
--- NOTE | 2024-03-25 16:42 | P.PN ---
Progress Note - Text Patient's BUN is steadily declining on afterload reducers with a mild, gradual increase in creatinine to 2.9 His urine output is maintained due to an afterload reduction strategy with hydralazine and nitrates despite the fact that the dose of diuretics was reduced Afterload reduction will result in increased stroke output per heartbeat thereby increasing peripheral perfusion and improving urine output This gentleman will NOT improve with diuretics only strategy.
[2024-03-25] MEDS: hydrALAZINE HCL 10 MG TAB PO SCH (17:35)
[2024-03-25] MEDS: ISOSORBIDE DINITRATE 20 MG TAB PO SCH (22:58)
--- NOTE | 2024-03-26 06:29 | P.PN ---
Subjective Progress Note Date: 03/25/24 This is a 78-year-old male who was recently admitted with CHF exacerbation along with JAC and urinary retention with multiple medical consultations following. Patient continues with lower extremity edema maintained on Bumex with cardiology and nephrology following. Adjustments to medications being had per cardiology recommend monitoring overnight. Patient is afebrile with no reports of chest pain or palpitations. Patient continues with some shortness of breath although is improved from baseline. Patient did have Knott catheter removed although continues with retention requiring replacement of indwelling Knott catheter. Patient will need continued follow-up outpatient with urology. Patient is also continued on antibiotic therapy and will continue with infectious disease following. Review of systems: Constitutional: No reports of fatigue, fever, or chills Cardiovascular: No reports of chest pain or palpitations Respiratory: No reports of shortness of breath or cough GI: No reports of nausea, no reports of vomiting, no diarrhea : No reports of dysuria reports retention requiring indwelling Knott catheter Neurovascular: reports of generalized weakness All medications have been reviewed PHYSICAL EXAMINATION: GENERAL: The patient is alert and oriented x4, Well developed, well nourished. Elderly appearing, ill-appearing, obese HEENT: Pupils are round and equally reacting to light. EOMI. no scleral icterus. No conjunctival pallor. Normocephalic, atraumatic. No pharyngeal erythema. No thyromegaly. CARDIOVASCULAR: S1 and S2 muffled PULMONARY: diminished breath sounds bilaterally with no wheezing or rhonchi noted. ABDOMEN: soft. Nontender on exam. obese. non-distended, normoactive bowel sounds. No palpable organomegaly. MUSCULOSKELETAL: No joint swelling or deformity. EXTREMITIES: No cyanosis, clubbing, bilateral lower extremity edema noted. NEUROLOGICAL: Gross neurological examination did not reveal any focal deficits. Diffuse weakness SKIN: No rashes. Assessment: Shortness of breath, likely secondary to CHF exacerbation with systolic dysfunction Chronic hypoxic respiratory failure with severe pulmonary hypertension History of severe cardiomyopathy with an EF of 20 to 25% Retention requiring indwelling Knott catheter. Catheter was removed and patient continues to retain and indwelling Knott catheter was replaced Acute on chronic kidney disease with baseline chronic kidney disease stage III Bilateral foot cellulitis, present on admission History of chronic atrial fibrillation status post AICD Thrombocytopenia Vancomycin-resistant Enterococcus in the urine likely secondary to indwelling Knott catheter. Catheter was replaced Hypertension history Hyperlipidemia Obesity with a BMI of 31.2 GI prophylaxis DVT prophylaxis Full code Plan: Recommend to continue with current medications and management with multiple medical consultations following. Patient is continued on antibiotics with infectious disease following and will discuss further regarding discharge planning. Patient evaluated by urology and underwent trial void although unsuccessful requiring indwelling Knott catheter replacement. Patient will require outpatient follow-up with urology Cardiology following recommend monitoring overnight and adjustments to medications Recommend PT/OT therapy evaluation. Patient is refusing and will likely go home on discharge. Patient has support in the home. Follow-up with repeat labs and replace electrolytes per protocol Due to multiple complex medical issues, overall prognosis is guarded. Patient is high risk for readmissions and has had multiple admissions regarding significant comorbidities Possible discharge planning in the next 24 to 48 hours The impression and plan of care has been dictated by Darlene Green, nurse practitioner as directed. Dr. Geoff STYLES I have performed a history and examination and MDM of this patient, discussed the same with the dictator, and agree with the dictator's assessment and plan as written ,documented as a scribe. Based on total visit time, I have performed more than 50% of the visit. Any additional findings or plans will be noted. Objective - Vital Signs Vital signs: Vital Signs Temp 97.9 F 03/25/24 08:00 Pulse 60 03/25/24 13:25 Resp 20 03/25/24 12:00 BP 99/49 03/25/24 12:00 Pulse Ox 96 03/25/24 12:00 FiO2 Intake & Output 03/24/24 03/25/24 03/25/24 18:59 06:59 18:59 Intake Total 958 462 720 Output Total 1000 Balance 958 -538 720 Weight 107.3 kg Intake: Oral 958 462 720 Output: Urine 1000 Other: Voiding Method Indwelling Catheter Indwelling Catheter Indwelling Catheter - Labs CBC & Chem 7: 03/25/24 08:23 03/25/24 08:23 Labs: Abnormal Lab Results - Last 24 Hours (Table) 03/25/24 03/25/24 Range/Units 08:23 08:23 WBC 11.4 H (3.8-10.6) k/uL RBC 3.02 L (4.30-5.90) m/uL Hgb 8.3 L (13.0-17.5) gm/dL Hct 28.5 L (39.0-53.0) % MCHC 29.0 L (31.0-37.0) g/dL RDW 19.4 H (11.5-15.5) % Plt Count 83 L (150-450) k/uL Neutrophils # 10.3 H (1.3-7.7) k/uL Lymphocytes # 0.4 L (1.0-4.8) k/uL Sodium 133 L (137-145) mmol/L BUN 115 H* (9-20) mg/dL Creatinine 2.92 H (0.66-1.25) mg/dL Glucose 144 H (74-99) mg/dL
[2024-03-26 08:07] VITALS: TEMP 97.5
[2024-03-26] MEDS: BUMETANIDE 1 MG TAB PO SCH (08:16)
--- NOTE | 2024-03-26 10:03 | P.PN ---
Subjective Patient is seen in follow-up for acute kidney injury on chronic kidney disease. On oral Bumex and Farxiga. Renal function fairly stable. BUN trending down. Nonoliguric. Family present at bedside. Vital signs are stable. General: No acute distress. HEENT: Head exam is unremarkable. LUNGS: No audible rhonchi or wheezes. HEART: Rate and Rhythm are regular. ABDOMEN: Nontender. EXTREMITITES: 2+ edema. Objective - Vital Signs Vital signs: Vital Signs Temp 97.5 F L 03/26/24 08:06 Pulse 72 03/26/24 08:06 Resp 20 03/26/24 08:06 BP 103/57 03/26/24 08:06 Pulse Ox 93 L 03/26/24 09:22 FiO2 Intake & Output 03/25/24 03/26/24 03/26/24 18:59 06:59 18:59 Intake Total 1794 450 Output Total 400 350 Balance 1394 100 Weight 107.3 kg Intake: Oral 1794 450 Output: Urine 400 350 Other: Voiding Method Indwelling Catheter Indwelling Catheter - Labs CBC & Chem 7: 03/25/24 08:23 03/25/24 08:23 Assessment and Plan Plan: Assessment: 1. Acute kidney injury secondary to ATN secondary to cardiorenal syndrome. Creatinine recently in the range of 2.4-2.6 -2.92 yesterday. 2. Chronic kidney disease stage IIIa with baseline creatinine 1.3-1.4 from October and November 2023. Kidney ultrasound from March 01, 2024 showed normal- sized kidneys without any hydronephrosis. 3. Acute on chronic systolic CHF with ejection fraction of 30 to 35% with mild to moderate mitral and tricuspid vegetation and moderate pulmonary hypertension. Status post AICD. 4. Volume overload. Improved with diuresis. 5. Anemia of chronic kidney disease. Status post IV iron. On Aranesp. Plan: Maintain Bumex. On SGLT2 inhibitor. Received IV Lasix dose yesterday as well. Low-salt diet and 1500 cc fluid restriction. Has chronic Knott catheter and is being followed by urology. Continue to monitor renal function and urine output. Avoid nephrotoxins. Discussed low-salt diet and fluid restriction of less than 50 ounces per day upon discharge. Repeat BMP and magnesium level 2 to 3 days postdischarge. Case discussed with cardiology. Patient has end-stage cardiomyopathy with guarded prognosis. On hydralazine and Imdur.
[2024-03-26 11:36] VITALS: PULSE 56
--- NOTE | 2024-03-26 11:54 | P.PN ---
Subjective Progress Note Date: 03/26/24 Principal diagnosis: Chronic kidney disease, CHF, UTI. This is a 78-year-old female patient, presented today because of worsening shortness of breath. She has known history of severe cardiomyopathy with ejection fraction of 20 to 25%, chronic kidney disease, history of nonsustained VT has an AICD in place, chronic A-fib, hypertension hyperlipidemia and obesity and previous hospitalization for decompensated heart failure, renal failure and fluid overload. The patient was last discharged from the hospital on 03/07/2024 to present back to the emergency department on 03/18/2020 forward worsening shortness of breath and decompensated heart failure. She also reports increased edema over the past 24 to 48 hours. She noticed that her Knott catheter was not draining. In October 2023, her creatinine was around 1.3-1.4. However, subsequently, there has been progressive worsening renal function and the patient currently has stage IV chronic kidney disease with a recent creatinine of 2.5. During this current admission, her creatinine was at 2.6 with a BUN of 151. Potassium level was at 3.7. White cell count is at 9.30 hemoglobin 8.9. The Knott catheter was exchanged and the patient was given IV Lasix and admitted to the hospital. She is currently on oxygen at 3 L with a pulse ox of 97% and the chest x-ray is consistent with cardiomegaly and CHF and pulmonary edema. Rest of the blood work shows a proBNP level of 39,000, troponin of 0.07, LFTs are normal, and a UA showing 23 WBCs. 22 RBCs. +1 protein. Viral screen was negative. The patient is seen today March 19, 2024 in follow-up in the emergency department. He is currently resting on a stretcher. Awake and alert in no acute distress. He is currently maintaining O2 saturations in the 90s on 3 L/min per nasal cannula. He remains on IV diuretics. Currently -1 L balance. Urine culture positive for group D Enterococcus. White count 6.7. Hemoglobin 7.7. Platelets 121. Sodium 133. Potassium 3.3. Bicarb 25. BUN 140. Creatinine 2.55. Glucose 108. He remains on ceftriaxone. Continued on heparin for DVT prophylaxis. The patient is seen today March 20, 2024 in follow-up on the selective care unit. He is currently sitting up in a chair at the bedside. Awake and alert in no acute distress. Feeling quite a bit better today compared to yesterday. He is maintaining O2 saturations in the upper 90s on 3 L/min per nasal cannula. Chest x-ray showing mild improvement of the pleural parenchymal changes most typical of mild CHF. Underlying COPD and chronic lung disease noted. Urine culture is positive for Enterococcus faecium VRE. Blood culture pending. White count 7.2. Hemoglobin 8.2. Platelets 95,000. Sodium 134. Potassium 3.5. Bicarb 25. BUN 137. Creatinine 2.50. Glucose 131. He is continued on Eliquis, Bumex 2 mg twice daily and antibiotics in the form of Unasyn. He is not currently on a +40 mL balance. Indwelling catheter remains in place. Reevaluated today on 03/21/24, patient remains on the cardiac floor, remains on diuretics, remains on oxygen at 2 L/min, continues to have negative fluid balance in the last few days, however the amount of negative balance is not significant roughly 1.5 L in the last 4 days clinically however the patient is feeling better with diuretics. X-ray continues to show some interstitial edema slight improvement compared to baseline. WBC count is 4.8 hemoglobin 8.2 electrolytes are normal BUN is up to 137 creatinine is 2.66 Reevaluate today on 03/22/2024, patient is doing better, breathing easier, continues to diurese, remains on diuretics, on 2 L nasal cannula with O2 sats of 97%. Overall the patient is improving but he is not quite ready for discharge. WBC count is 5.6 hemoglobin 8.1 BUN is up to 128 creatinine 2.60, patient remains on diuretics. Patient does have severe LV dysfunction. Remains on antibiotics in the form of daptomycin, remains on Bumex and he also remains on Aldactone. Pulmonary almonte he is on multiple bronchodilators as noted in the chart. Patient was reevaluated today on 03/24/2024, patient continues to do well, continues to diurese and responded well to diuretics, remains on oxygen however this morning his pulse ox on room air was in the 90s and he may have his oxygen off for now. Overall the patient is feeling better, breathing easier, his CBC is relatively unchanged basically normal electrolytes are normal BUN is 120 creatinine 2.71 Progress note dated March 25, 2024. The patient is seen today in room 377. Currently the patient is on room air. The patient's urine was positive for Enterococcus faecium. The patient is on daptomycin. The patient is not receiving any IV fluids. Current labs today, include a white count 11.4, hemoglobin 8.3, hematocrit 28.5, and a platelet count is only 83,000. Sodium 133, potassium 3.8, chlorides 98, CO2 26, BUN 115, creatinine 2.92. Glucose is 144. Calcium is 8.8. Progress note dated March 26, 2024. The patient is seen today in room 377. Family members are at the bedside. The patient has no specific complaints today. He is currently on room air. He is not receiving any IV fluids. His lower extremity edema is still present, but improved. No new labs today. Labs from March 25, have been reviewed. Urine cultures from March 18, or positive for VRE. Objective - Vital Signs Vital signs: Vital Signs Temp 97.5 F L 03/26/24 08:06 Pulse 56 L 03/26/24 11:35 Resp 20 03/26/24 11:35 BP 114/55 03/26/24 11:35 Pulse Ox 95 03/26/24 11:35 FiO2 Intake & Output 03/25/24 03/26/24 03/26/24 18:59 06:59 18:59 Intake Total 1794 450 Output Total 400 350 Balance 1394 100 Weight 107.3 kg 102.1 kg Intake: Oral 1794 450 Output: Urine 400 350 Other: Voiding Method Indwelling Catheter Indwelling Catheter Indwelling Catheter - Exam No acute distress, oriented 3. Patient currently on room air. HEENT examination is grossly unremarkable. Mucous membranes are moist. No oral lesions. Neck supple. Full range of motion. No adenopathy thyromegaly or neck vein distention. Cardiovascular examination reveals irregular rhythm and rate. S1-S2 normal. No S3 or S4. No discernible murmur noted. Heart rate 56 bpm. Lungs reveal scattered rhonchi and crackles. Breath sounds equal. Saturations are more than adequate, on room air. Abdomen soft bowel sounds are heard. No masses or tenderness. Reducible periumbilical hernia. Extremities are intact. No cyanosis or clubbing. Mild to moderate edema noted. Skin reveals chronic venous stasis changes in the lower extremities. Neurologic examination is brief but nonfocal. - Labs CBC & Chem 7: 03/25/24 08:23 03/25/24 08:23 Assessment and Plan Assessment: Acute on chronic hypoxemic respiratory failure secondary to acute exacerbation of chronic systolic CHF. Severe cardiomyopathy with ejection fraction of 20 to 25%. Severe pulmonary hypertension. Chronic hypoxemic respiratory failure. Acute on chronic kidney disease. Stage IIIa chronic kidney disease. History of nonsustained ventricular tachycardia, status post AICD. Chronic atrial fibrillation. Hypertension. Hyperlipidemia. Obesity. VRE urinary tract infection. Plan: Plan dated March 25, 2024. The patient continues on appropriate antibiotics. The patient is currently on daptomycin for his Enterococcus infection. The patient is not receiving any IV fluids. The patient is on room air. The patient denies any respiratory difficulty or distress. We will continue to follow the patient and make recommendations along the way. Labs, x-rays, and medications are reviewed. The patient's overall prognosis remains guarded. Plan dated March 26, 2024. The patient is seen today in room 377. The patient is currently on room air. Is not receiving any IV fluids. Clinically, he is feeling better. Labs, x- rays, and medications are reviewed. The patient is being treated for a VRE urinary tract infection. The patient continues on daptomycin. The patient denies any shortness of breath, cough, wheezing, chest tightness, or phlegm production. The patient also denies any chest pain or pressure. Time with Patient: Less than 30
[2024-03-26 13:01] VITALS: BP 91/56
[2024-03-26 13:32] LABS: African American GFR (CKD) 24 (>60 ml/min/1.73 sqM); Anion Gap 13 mmol/L; Calcium 8.8 mg/dL (8.4-10.2); Carbon Dioxide 23 mmol/L (22-30); Chloride 98 mmol/L (98-107); Glucose 145 mg/dL (74-99); Magnesium 1.9 mg/dL (1.6-2.3); Non-African American GFR(CKD) 20 (>60 ml/min/1.73 sqM); Potassium 4.2 mmol/L (3.5-5.1); Sodium 134 mmol/L (137-145)
[2024-03-26 13:37] LABS: Anisocytosis Slight; Basophils % (A) 0 %; Eosinophils % (A) 1 %; HCT 25.6 % (39.0-53.0); Hypochromasia Marked; Lymphocytes # (A) 0.4 k/uL (1.0-4.8); Lymphocytes % (A) 5 %; MCH 29.4 pg (25.0-35.0); MCHC 31.2 g/dL (31.0-37.0); MCV 94.1 fL (80.0-100.0); Macrocytosis Slight; Mean Platelet Volume 10.2; Monocytes # (A) 0.4 k/uL (0-1.0); Monocytes % (A) 5 %; Neutrophils # (A) 6.8 k/uL (1.3-7.7); Neutrophils % (A) 89 %; Poikilocytosis Slight; RBC 2.72 m/uL (4.30-5.90); RDW 19.2 % (11.5-15.5); WBC 7.7 k/uL (3.8-10.6)
[2024-03-26 13:42] LABS: Platelet Count 78 k/uL (150-450)
--- NOTE | 2024-03-26 14:08 | P.DS ---
Providers Date of admission: 03/18/24 13:06 Attending physician: Lexy Marcelino MD Consults: 03/18/24 06:32 Consult Physician Routine Consulting Provider: [facility] Consult Reason/Comments: chf Do you want consulting provider notified?: Yes Consult Physician Routine Consulting Provider: Aquiles Gomez Consult Reason/Comments: ckd Do you want consulting provider notified?: Yes 03/18/24 13:03 Consult Physician Routine Consulting Provider: Xiao Subramanian Consult Reason/Comments: copd Do you want consulting provider notified?: Yes 03/18/24 13:05 Consult Physician Routine Consulting Provider: Manuel Moreno Consult Reason/Comments: sepsis Do you want consulting provider notified?: Yes 03/19/24 15:24 Consult Physician Urgent Consulting Provider: Joe Newman Consult Reason/Comments: urinary retention, indwelling dubois Do you want consulting provider notified?: Yes Primary care physician: Mago Domínguezarlo [facility] Course: Diagnoses: Shortness of breath, likely secondary to CHF exacerbation with systolic dysfunction, pt is advanced to end stage CHF Chronic hypoxic respiratory failure with severe pulmonary hypertension History of severe cardiomyopathy with an EF of 20 to 25% Retention requiring indwelling Dubois catheter. Catheter was removed and patient continues to retain and indwelling Dubois catheter was replaced back in Acute on chronic kidney disease with baseline chronic kidney disease stage III Bilateral foot cellulitis, present on admission History of chronic atrial fibrillation status post AICD Thrombocytopenia Vancomycin-resistant Enterococcus in the urine likely secondary to indwelling Dubois catheter. Catheter was replaced Hypertension history Hyperlipidemia Obesity with a BMI of 31.2 Hospital course: This is a 78-year-old male who was recently admitted with CHF exacerbation along with JAC and urinary retention with multiple medical consultations following. Patient continues with lower extremity edema maintained on Bumex with cardiology and nephrology following. Adjustments to medications being had per cardiology recommend monitoring overnight. Patient has been evaluated by cardiology and roof fixer for fluid overload. Currently patient is On Bumex Once Daily and Added Hydralazine Was Isordil for Afterload reduction. Patient currently breathing is improved, oxygen saturation is acceptable with pulmonary cardiology following.. Patient also heart rate is controlled on amiodarone, metoprolol and on Eliquis. Patient currently is awake and alert and appropriate. He has insight and follow commands. at bedside. Dubois catheter is in place. Has bilateral leg swelling gradually coming down. Patient denies chest pain. No significant dyspnea. No other new complaint and him and are agreeable to be discharged to rehab today Patient currently is on daptomycin for VRE UTI. Patient will be discharged on antibiotic as per ID team recommendations Patient was cleared for discharge by all consultants Problems and management plan were discussed with the patient and he verbalized understanding and acceptance Patient was found stable and can be discharged home in guarded prognosis however he needs follow-up as an outpatient. Patient was instructed to follow up with PCP Dr. Lazo within one week and patient agrees Recommend patient follow-up with account financial manager Dr. Zavala and roof fixer Dr. Childs in 1 week. Patient was instructed to follow-up with supervisor post wave Dr. Francis and urologist Dr. newman in 2 weeks after discharge Physical exam -Gen: patient is a AAOx3, no distress. Generalized weakness CVS: S1-S2, RRR, no murmur Lungs: B/L CTA, no wheezing -Abdomen: soft, no distention, no tenderness, positive bowel sounds Dubois catheter in place -Extremity: no induration. Bilateral pitting leg edema Time spent more than 35 minutes Patient Condition at Discharge: Stable Plan - Discharge Summary Discharge Rx Participant: No New Discharge Prescriptions: No Action Simvastatin [Zocor] 20 mg PO HS Omeprazole 20 mg PO DAILY allopurinoL [Zyloprim] 300 mg PO DAILY Ferrous Sulfate [Iron (65 MG Elemental)] 325 mg PO DAILY Bumetanide [BUMEX] 2 mg PO BID #60 tablet Fluticasone/Umeclidin/Vilanter [Trelegy Ellipta 100-62.5-25] 1 puff INHALATION RT-DAILY Tamsulosin HCl [Flomax] 0.4 mg PO HS Albuterol Sulfate [Proair Hfa] 2 puff INHALATION RT-Q6H PRN PRN Reason: Shortness Of Breath Metoprolol Succinate (ER) [Toprol XL] 12.5 mg PO HS #30 tab Apixaban [Eliquis] 2.5 mg PO BID #60 tab Acetaminophen Tab [Tylenol] 325 mg PO Q6H #30 tab metOLazone 2.5 mg PO DAILY #30 tab Discharge Medication List Omeprazole 20 mg PO DAILY 01/29/18 [History] Simvastatin [Zocor] 20 mg PO HS 01/29/18 [History] allopurinoL [Zyloprim] 300 mg PO DAILY 01/29/18 [History] Albuterol Sulfate [Proair Hfa] 2 puff INHALATION RT-Q6H PRN 01/13/22 [History] Tamsulosin HCl [Flomax] 0.4 mg PO HS 01/13/22 [History] Ferrous Sulfate [Iron (65 MG Elemental)] 325 mg PO DAILY 10/30/23 [History] Metoprolol Succinate (ER) [Toprol XL] 12.5 mg PO HS #30 tab 11/10/23 [Rx] Acetaminophen Tab [Tylenol] 325 mg PO Q6H #30 tab 03/07/24 [Rx] Apixaban [Eliquis] 2.5 mg PO BID #60 tab 03/07/24 [Rx] Bumetanide [BUMEX] 2 mg PO BID #60 tablet 03/07/24 [Rx] metOLazone 2.5 mg PO DAILY #30 tab 03/07/24 [Rx] Fluticasone/Umeclidin/Vilanter [Trelegy Ellipta 100-62.5-25] 1 puff INHALATION RT-DAILY 03/18/24 [History] Follow up Appointment(s)/Referral(s): Mago Lazo DO [Primary Care Provider] - 1-2 days [facility], [NON-STAFF] - As Needed
[2024-03-26 14:40] LABS: Blood Urea Nitrogen 115 mg/dL (9-20); NT-Pro-B-Type Natriuretic Pept 35300 pg/mL
--- NOTE | 2024-03-26 15:12 | P.PN ---
Subjective Progress Note Date: 03/26/24 Heart failure The patient is a pleasant 78-year-old gentleman with a past medical history significant for severe nonischemic cardiomyopathy status post AICD as well as atrial fibrillation and hypertension and dyslipidemia and multiple comorbid conditions including recurrent hospital admission with heart failure who was admitted to the hospital again with heart failure. March 25, 2024 The patient was seen and evaluated this morning. He is doing slightly better. He is not hypoxic at this point. He continues to have bilateral lower extremities edema. Currently he is on oral diuretics. Currently he is on Bumex and has been somewhat doing better. BUN continues to be elevated but down from yesterday. Creatinine continues to be elevated but stable. Hemoglobin is stable as well. Examination is remarkable for normal S1 and S2 and systolic murmur and diminished breathing sounds bilaterally and bilateral lower extremities edema noted 03/26 Patient states that he is not really feeling any different from yesterday and has chronic fatigue. Discussed patient's prognosis with the patient and family members at the bedside. He does have upcoming appointment with [facility] that has been pushed back to April. Yesterday, multiple medication changes were made by Dr. Medina including the addition of Isordil, hydralazine, Bumex and Aldactone. Blood pressure 114/55, heart rate 56-72, pulse ox 95% on room air. Examination: Normal S1-S2, systolic murmur, diminished breath sounds bilaterally, bilateral lower extremity edema. Assessment Heart failure exacerbation with reduced ejection fraction Severe cardiomyopathy Atrial fibrillation Status post AICD Multiple comorbid conditions Plan Continue the current medical regimen Patient is cleared for discharge from cardiology May follow-up in the office in [address] Reid. Nurse practitioner note has been reviewed, I agree with documented findings and plan of care. Patient was seen and examined. Objective - Vital Signs Vital signs: Vital Signs Temp 97.5 F L 03/26/24 08:06 Pulse 56 L 03/26/24 11:35 Resp 20 03/26/24 11:35 BP 114/55 03/26/24 11:35 Pulse Ox 95 03/26/24 11:35 FiO2 Intake & Output 03/25/24 03/26/24 03/26/24 18:59 06:59 18:59 Intake Total 1794 450 Output Total 400 350 Balance 1394 100 Weight 107.3 kg 102.1 kg Intake: Oral 1794 450 Output: Urine 400 350 Other: Voiding Method Indwelling Catheter Indwelling Catheter Indwelling Catheter - Labs CBC & Chem 7: 03/26/24 12:36 03/26/24 12:36
--- NOTE | 2024-03-26 15:58 | P.PN ---
Subjective Progress Note Date: 03/24/24 Principal diagnosis: Reason for follow-up is a catheter associated UTI Patient is 78-year-old male with a past medical history significant for hypertension hyperlipidemia reflux COPD osteoarthritis chronic back pain, patient has been sent to the ER for Knott catheter malfunction, we did have replacement of Knott catheter patient also noticed to have a positive UA con cerning for cath versus UTI. On today's evaluation that is 03/24/2024, patient has been afebrile, patient is breathing comfortably and is currently on 2 L nasal cannula oxygen patient denies having any significant cough no chest pain shortness of breath, patient denies nausea vomiting or diarrhea and no abdominal pain. Patient did have a white count of 6.6, creatinine is 2.71 Objective - Vital Signs Vital signs: Vital Signs Temp 98.0 F 03/24/24 08:20 Pulse 74 03/24/24 14:00 Resp 16 03/24/24 14:00 BP 94/58 03/24/24 12:00 Pulse Ox 95 03/24/24 12:00 FiO2 Intake & Output 03/23/24 03/24/24 03/24/24 18:59 06:59 18:59 Intake Total 956 518 Output Total 800 550 Balance 156 -550 518 Weight 104.6 kg Intake: Oral 956 518 Output: Urine 800 550 Other: Voiding Method Indwelling Catheter Indwelling Catheter Indwelling Catheter # Bowel Movements 1 1 - Exam GENERAL DESCRIPTION: An elderly male lying in bed in no distress RESPIRATORY SYSTEM: Unlabored breathing , decreased breath sounds at bases HEART: S1 S2 regular rate and rhythm , ABDOMEN: Soft , no tenderness EXTREMITIES: No edema feet - Labs CBC & Chem 7: 03/26/24 12:36 03/26/24 12:36 Labs: Abnormal Lab Results - Last 24 Hours (Table) 03/24/24 03/24/24 Range/Units 05:00 05:00 RBC 2.90 L (4.30-5.90) m/uL Hgb 8.0 L (13.0-17.5) gm/dL Hct 27.4 L (39.0-53.0) % MCHC 29.1 L (31.0-37.0) g/dL RDW 19.3 H (11.5-15.5) % Plt Count 63 L (150-450) k/uL Lymphocytes # 0.5 L (1.0-4.8) k/uL Sodium 133 L (137-145) mmol/L BUN 120 H* (9-20) mg/dL Creatinine 2.71 H (0.66-1.25) mg/dL Glucose 100 H (74-99) mg/dL Total Protein 5.8 L (6.3-8.2) g/dL Microbiology - Last 24 Hours (Table) 03/18/24 14:33 Blood Culture - Final Blood Assessment and Plan (1) UTI (urinary tract infection) Status: Acute Code(s): N39.0 - URINARY TRACT INFECTION, SITE NOT SPECIFIED SNOMED Code(s): 83845323 Plan: 1patient presented to hospital with multiple 25 his Knott catheter in this patient who did have a significantly positive UA some lower abdominal discomfort concerning for cystitis likely from enteric gram-negative pathogen, patient urine is growing Enterococcus which has been finalized as VRE 2patient to continue with daptomycin while inpatient and monitor clinical course closely Dictation was produced using [employer] dictation software. please excuse any grammatical, word or spelling errors.
--- NOTE | 2024-03-26 15:59 | P.PN ---
Subjective Progress Note Date: 03/26/24 Principal diagnosis: Reason for follow-up is a catheter associated UTI Patient is 78-year-old male with a past medical history significant for hypertension hyperlipidemia reflux COPD osteoarthritis chronic back pain, patient has been sent to the ER for Knott catheter malfunction, we did have replacement of Knott catheter patient also noticed to have a positive UA con cerning for cath versus UTI. On today's evaluation that is 03/26/2024,the patient remains to be afebrile, patient is on room air not requiring supplemental oxygen and denies any shortness of breath no chest pain or cough.Patient denies having any nausea or vomiting, no abdominal pain and no diarrhea has been reported, patient mention feeling better. Patient white count is down to 7.7 creatinine is 2.87 blood culture negative Objective - Vital Signs Vital signs: Vital Signs Temp 97.5 F L 03/26/24 08:06 Pulse 56 L 03/26/24 11:35 Resp 20 03/26/24 11:35 BP 91/56 03/26/24 13:01 Pulse Ox 95 03/26/24 11:35 FiO2 Intake & Output 03/25/24 03/26/24 03/26/24 18:59 06:59 18:59 Intake Total 1794 450 Output Total 400 350 600 Balance 1394 100 -600 Weight 107.3 kg 102.1 kg Intake: Oral 1794 450 Output: Urine 400 350 600 Other: Voiding Method Indwelling Catheter Indwelling Catheter Indwelling Catheter - Exam GENERAL DESCRIPTION: An elderly male lying in bed in no distress RESPIRATORY SYSTEM: Unlabored breathing , decreased breath sounds at bases HEART: S1 S2 regular rate and rhythm , ABDOMEN: Soft , no tenderness - Labs CBC & Chem 7: 03/26/24 12:36 03/26/24 12:36 Assessment and Plan (1) UTI (urinary tract infection) Status: Acute Code(s): N39.0 - URINARY TRACT INFECTION, SITE NOT SPECIFIED SNOMED Code(s): 76663680 Plan: 1patient presented to hospital with multiple 25 his Knott catheter in this patient who did have a significantly positive UA some lower abdominal discomfort concerning for cystitis likely from enteric gram-negative pathogen, patient urine is growing Enterococcus which has been finalized as VRE 2patient white count i has normalized blood culture has been negative received about 5 to 6 days of daptomycin we will consider the 5 days of oral Zyvox on discharge and close outpatient follow-up discussed with admitting team Dictation was produced using [employer] dictation software. please excuse any grammatical, word or spelling errors. Time with Patient: Less than 30
--- NOTE | 2024-03-26 15:59 | P.PN ---
Subjective Progress Note Date: 03/25/24 Principal diagnosis: Reason for follow-up is a catheter associated UTI Patient is 78-year-old male with a past medical history significant for hypertension hyperlipidemia reflux COPD osteoarthritis chronic back pain, patient has been sent to the ER for Knott catheter malfunction, we did have replacement of Knott catheter patient also noticed to have a positive UA con cerning for cath versus UTI. On today's evaluation that is 03/25/2024,the patient denies any fever or any chills, patient is breathing comfortably on room air, the patient denies chest pain shortness of breath and no significant cough, patient denies abdominal pain, no nausea vomiting or diarrhea.. Patient did have vital 11.4 creatinine is 2.92 Objective - Vital Signs Vital signs: Vital Signs Temp 97.9 F 03/25/24 08:00 Pulse 60 03/25/24 13:25 Resp 20 03/25/24 12:00 BP 99/49 03/25/24 12:00 Pulse Ox 96 03/25/24 12:00 FiO2 Intake & Output 03/24/24 03/25/24 03/25/24 18:59 06:59 18:59 Intake Total 958 462 720 Output Total 1000 Balance 958 -538 720 Weight 107.3 kg Intake: Oral 958 462 720 Output: Urine 1000 Other: Voiding Method Indwelling Catheter Indwelling Catheter Indwelling Catheter - Exam GENERAL DESCRIPTION: An elderly male lying in bed in no distress RESPIRATORY SYSTEM: Unlabored breathing , decreased breath sounds at bases HEART: S1 S2 regular rate and rhythm , ABDOMEN: Soft , no tenderness - Labs CBC & Chem 7: 03/26/24 12:36 03/26/24 12:36 Labs: Abnormal Lab Results - Last 24 Hours (Table) 03/25/24 03/25/24 Range/Units 08:23 08:23 WBC 11.4 H (3.8-10.6) k/uL RBC 3.02 L (4.30-5.90) m/uL Hgb 8.3 L (13.0-17.5) gm/dL Hct 28.5 L (39.0-53.0) % MCHC 29.0 L (31.0-37.0) g/dL RDW 19.4 H (11.5-15.5) % Plt Count 83 L (150-450) k/uL Neutrophils # 10.3 H (1.3-7.7) k/uL Lymphocytes # 0.4 L (1.0-4.8) k/uL Sodium 133 L (137-145) mmol/L BUN 115 H* (9-20) mg/dL Creatinine 2.92 H (0.66-1.25) mg/dL Glucose 144 H (74-99) mg/dL Assessment and Plan (1) UTI (urinary tract infection) Status: Acute Code(s): N39.0 - URINARY TRACT INFECTION, SITE NOT SPECIFIED SNOMED Code(s): 31695147 Plan: 1patient presented to hospital with multiple 25 his Knott catheter in this patient who did have a significantly positive UA some lower abdominal discomfort concerning for cystitis likely from enteric gram-negative pathogen, patient urine is growing Enterococcus which has been finalized as VRE 2patient white count is slightly up we will be monitoring closely continue with the daptomycin repeat a CBC with a.m. lab Dictation was produced using [employer] dictation software. please excuse any grammatical, word or spelling errors. Time with Patient: Less than 30
--- NOTE | 2024-04-01 12:47 | CDI ---
Documentation Clarification Form Date: 04/01/2024 12:43:39 PM From: Jillian Saxena RN, CCDS Phone: [phone] Admit Date: 03/18/2024 01:06:00 PM Patient Name: Kristel Harris Visit Number: [id number] Discharge Date: 03/26/2024 03:27:00 PM ATTENTION: The Clinical Documentation Specialists (CDI) and [facility] Coding Staff appreciate your assistance in clarifying documentation. Please respond to the clarification below the line at the bottom and electronically sign. The CDI & [facility] Coding staff will review the response and follow-up if needed. Please note: Queries are made part of the Legal Health Record. If you have any questions, please contact the author of this message via ITS. Dr. Gilbert Tellez UTI is documented in the ID Consult and ongoing progress notes and patient present with Knott catheter malfunction. Additional clarification regarding the etiology of the UTI is requested. History/Risk Factors: COPD, GERD/Reflux, Hyperlipidemia, Hypertension, Osteoarthritis, Former smoker Clinical Indicators: 78-year-old male sent to the ER for Knott catheter malfunction which apparently has not been draining since the night before. He was complaining of lower abdominal pain. 03/18: Urinalysis: Leukocyte Esterase Large, Urine WBC 23, Urine Bacteria Occasional High, 03/18 Urine culture: Enterococcus faecium VRE 03/18 Lab results: WBC 9.2, HGB 8.9, HCT 29.7 Neutrophils 8.3, BUN 151, Creatine 2.65 03/19 ID progress notes: Reason for follow-up is a catheter associated UTI. Knott catheter in this patient who did have a significantly positive UA some lower abdominal discomfort concerning for cystitis likely from enteric gram-negative pathogen, patient urine is growing Enterococcus with sensitivities pending. Treatment: Daptomycin 400 MG IVPB Q 24 HRS 03/20 Unasyn 3 GM IVPB Q 8 HRS Rocephin 1 GM IVPB Q 24 HRS 03/18-03/19 Please clarify the etiology of the UTI, if known: [ x] UTI due to Knott catheter, present on admission [ ] Other condition, please specify [ ] Unable to determine (Template Last Revised: December 2020) MTDD
== END 2024-03-26 15:27 | DRG 698 ==
LOC: EC 03:11 → 4SSUR 06:33 → OBSVTOIN 13:06 → 4SSUR 17:54 → 3SCARD 03-19 21:21
PROVIDERS: ADMIT Internal Medicine; ATTEND Internal Medicine
DX: T83.518A Infection and inflammatory reaction due to other urinary catheter, initial encounter (principal); I50.23 Acute on chronic systolic (congestive) heart failure; J96.21 Acute and chronic respiratory failure with hypoxia; N17.0 Acute kidney failure with tubular necrosis; I13.0 Hypertensive heart and chronic kidney disease with heart failure and stage 1 through stage 4 chronic kidney disease, or unspecified chronic kidney disease; I47.20 Ventricular tachycardia, unspecified; I42.8 Other cardiomyopathies; J44.1 Chronic obstructive pulmonary disease with (acute) exacerbation; L03.115 Cellulitis of right lower limb; L03.116 Cellulitis of left lower limb; I48.19 Other persistent atrial fibrillation; N39.0 Urinary tract infection, site not specified; Z16.21 Resistance to vancomycin; I27.20 Pulmonary hypertension, unspecified; D69.6 Thrombocytopenia, unspecified; D63.1 Anemia in chronic kidney disease; I95.9 Hypotension, unspecified; I50.84 End stage heart failure; N18.31 Chronic kidney disease, stage 3a; T83.018A Breakdown (mechanical) of other urinary catheter, initial encounter; E66.9 Obesity, unspecified; I08.1 Rheumatic disorders of both mitral and tricuspid valves; Z68.31 Body mass index [BMI] 31.0-31.9, adult; B95.2 Enterococcus as the cause of diseases classified elsewhere; E78.5 Hyperlipidemia, unspecified; E61.1 Iron deficiency; I25.10 Atherosclerotic heart disease of native coronary artery without angina pectoris; G89.29 Other chronic pain; M54.9 Dorsalgia, unspecified; M19.90 Unspecified osteoarthritis, unspecified site; M10.9 Gout, unspecified; I49.3 Ventricular premature depolarization; K21.9 Gastro-esophageal reflux disease without esophagitis; R33.9 Retention of urine, unspecified; R53.82 Chronic fatigue, unspecified; Z99.81 Dependence on supplemental oxygen; Z79.01 Long term (current) use of anticoagulants; Z79.84 Long term (current) use of oral hypoglycemic drugs; Z79.51 Long term (current) use of inhaled steroids; Z79.899 Other long term (current) drug therapy; Z87.891 Personal history of nicotine dependence; Z95.810 Presence of automatic (implantable) cardiac defibrillator; Z96.642 Presence of left artificial hip joint; Z71.3 Dietary counseling and surveillance; Y73.2 Prosthetic and other implants, materials and accessory gastroenterology and urology devices associated with adverse incidents; Y84.6 Urinary catheterization as the cause of abnormal reaction of the patient, or of later complication, without mention of misadventure at the time of the procedure
CPT/HCPCS: 36415; 51702; 71045; 71046; 80048; 80053; 81001; 82272; 82728; 83540; 83550; 83735; 83880; 84484; 85025; 87040; 87077; 87086; 87186; 87636; 93005; 94760; 96365; 96366; 96375; 96376; 99285

== ENCOUNTER 2024-04-01 14:51 | Inpatient (IN) | payer MEDICARE ==
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
--- NOTE | 2024-04-01 15:47 | XR ---
EXAMINATION TYPE: XR chest 2V DATE OF EXAM: 04/01/2024 3:39 PM CLINICAL INDICATION:Male, 78 years old with history of Weakness; [facility] COMPARISON: Chest radiographs from 03/18/2024 TECHNIQUE: XR chest 2V Frontal and lateral views of the chest. FINDINGS: Lungs/Pleura: There is no evidence of pleural effusion, focal consolidation, or pneumothorax. Pulmonary vascularity: Pulmonary vascular congestion. Heart/mediastinum: Cardiomediastinal silhouette is enlarged and stable. Atherosclerotic calcificatio ns are seen in the aorta. Musculoskeletal: No acute osseous pathology. IMPRESSION: Cardiomegaly, pulmonary vascular congestion and bilateral pleural effusions. Correlate with BNP for c ongestive heart failure.
[2024-04-01 15:49] LABS: Anisocytosis Slight; Basophils % (A) 0 %; Eosinophils % (A) 0 %; HCT 28.8 % (39.0-53.0); HGB 8.9 gm/dL (13.0-17.5); Hypochromasia Marked; Lymphocytes # (A) 0.3 k/uL (1.0-4.8); Lymphocytes % (A) 4 %; MCH 28.5 pg (25.0-35.0); MCHC 30.7 g/dL (31.0-37.0); MCV 92.6 fL (80.0-100.0); Mean Platelet Volume 10.3; Monocytes # (A) 0.7 k/uL (0-1.0); Monocytes % (A) 8 %; Neutrophils # (A) 7.5 k/uL (1.3-7.7); Neutrophils % (A) 87 %; Platelet Count 100 k/uL (150-450); Poikilocytosis Slight; RBC 3.11 m/uL (4.30-5.90); RDW 18.8 % (11.5-15.5); WBC 8.6 k/uL (3.8-10.6)
[2024-04-01 15:50] LABS: INR 1.5 (<1.2); Partial Thromboplastin Time 34.3 sec (22.0-30.0)
[2024-04-01 15:53] LABS: ALT 11 U/L (4-49); AST 26 U/L (17-59); African American GFR (CKD) 17 (>60 ml/min/1.73 sqM); Albumin 3.6 g/dL (3.5-5.0); Alkaline Phosphatase 104 U/L (38-126); Anion Gap 14 mmol/L; Carbon Dioxide 20 mmol/L (22-30); Chloride 99 mmol/L (98-107); Glucose 111 mg/dL (74-99); Magnesium 2.2 mg/dL (1.6-2.3); Non-African American GFR(CKD) 15 (>60 ml/min/1.73 sqM); Phosphorus 5.2 mg/dL (2.5-4.5); Potassium 4.7 mmol/L (3.5-5.1); Sodium 133 mmol/L (137-145); Total Bilirubin 1.5 mg/dL (0.2-1.3); Total Protein 6.1 g/dL (6.3-8.2)
[2024-04-01 15:57] LABS: Blood Urea Nitrogen 110 mg/dL (9-20)
[2024-04-01] MEDS ORDERED: NALOXONE 0.4 MG/ML 1 ML VIAL IV PRN (17:43)
[2024-04-01] MEDS ORDERED: ONDANSETRON 4 MG/2 ML VIAL IVP PRN (17:43)
[2024-04-01] MEDS: PANTOPRAZOLE 40 MG/10 ML VIAL IV SCH (18:40)
[2024-04-01] MEDS: SODIUM CHLORIDE 0.9% 1,000 ML IV SCH (18:40)
[2024-04-01] MEDS ORDERED: MAGNESIUM HYDROXIDE 2,400 MG/30 ML CUP PO PRN (23:27)
[2024-04-01] MEDS ORDERED: ALBUTEROL NEBULIZED 2.5 MG/3 ML INHALATION PRN (23:27)
[2024-04-01] MEDS ORDERED: bisacodyL 5 MG TABLET.DR PO PRN (23:27)
[2024-04-02] MEDS: METOPROLOL SUCCINATE (ER) 25 MG TAB.ER.24H PO SCH (00:03)
[2024-04-02] MEDS: hydrALAZINE HCL 10 MG TAB PO SCH (00:03)
[2024-04-02] MEDS: ALPRAZolam 0.25 MG TAB PO PRN (00:03)
[2024-04-02] MEDS: ATORVASTATIN 10 MG TAB PO SCH (00:04)
[2024-04-02] MEDS: ZINC OXIDE PASTE (Z-GUARD) 1 APPLIC TOPICAL PRN (00:04)
[2024-04-02] MEDS: TAMSULOSIN 0.4 MG CAP.ER.24H PO SCH (00:04)
[2024-04-02] MEDS: APIXABAN 2.5 MG TABLET PO SCH (00:04)
[2024-04-02] MEDS: BUMETANIDE 1 MG TAB PO SCH (00:04)
[2024-04-02] MEDS: THIAMINE 100 MG TAB PO SCH (00:04)
[2024-04-02] MEDS: ISOSORBIDE DINITRATE 20 MG TAB PO SCH (00:50)
[2024-04-02 05:58] LABS: Anisocytosis Slight; Basophils % (A) 0 %; Eosinophils % (A) 0 %; HCT 27.4 % (39.0-53.0); HGB 8.1 gm/dL (13.0-17.5); Hypochromasia Marked; Lymphocytes # (A) 0.3 k/uL (1.0-4.8); Lymphocytes % (A) 4 %; MCH 27.7 pg (25.0-35.0); MCHC 29.7 g/dL (31.0-37.0); MCV 93.2 fL (80.0-100.0); Mean Platelet Volume 9.1; Monocytes # (A) 0.4 k/uL (0-1.0); Monocytes % (A) 4 %; Neutrophils # (A) 7.9 k/uL (1.3-7.7); Neutrophils % (A) 91 %; Platelet Count 106 k/uL (150-450); RBC 2.94 m/uL (4.30-5.90); RDW 18.8 % (11.5-15.5); WBC 8.8 k/uL (3.8-10.6)
[2024-04-02 06:09] LABS: ALT 10 U/L (4-49); AST 22 U/L (17-59); African American GFR (CKD) 17 (>60 ml/min/1.73 sqM); Albumin 3.2 g/dL (3.5-5.0); Alkaline Phosphatase 100 U/L (38-126); Anion Gap 13 mmol/L; Calcium 8.4 mg/dL (8.4-10.2); Carbon Dioxide 17 mmol/L (22-30); Chloride 101 mmol/L (98-107); Glucose 102 mg/dL (74-99); Magnesium 2.1 mg/dL (1.6-2.3); Non-African American GFR(CKD) 15 (>60 ml/min/1.73 sqM); Phosphorus 5.1 mg/dL (2.5-4.5); Potassium 4.3 mmol/L (3.5-5.1); Sodium 131 mmol/L (137-145); Total Bilirubin 1.2 mg/dL (0.2-1.3); Total Protein 5.6 g/dL (6.3-8.2)
[2024-04-02] MEDS: PANTOPRAZOLE 40 MG TABLET PO SCH (06:17)
[2024-04-02 06:24] LABS: T4, Free (Free Thyroxine) 0.92 ng/dL (0.78-2.19)
[2024-04-02 06:28] LABS: Blood Urea Nitrogen 110 mg/dL (9-20)
[2024-04-02] MEDS: FERROUS SULFATE 325 MG TAB PO SCH (07:46)
[2024-04-02] MEDS: MULTIVITAMINS, THERA 1 EACH TAB PO SCH (07:46)
[2024-04-02] MEDS: DAPAGLIFLOZIN PROPANEDIOL 10 MG TABLET PO SCH (07:46)
[2024-04-02] MEDS: allopurinoL 100 MG TAB PO SCH (07:46)
[2024-04-02] MEDS: SPIRONOLACTONE 25 MG TAB PO SCH (07:47)
[2024-04-02] MEDS: FOLIC ACID 1 MG TAB PO SCH (07:47)
[2024-04-02] MEDS: AMIODARONE 200 MG TAB PO SCH (07:47)
[2024-04-02] MEDS: IPRATROPIUM 0.5 MG/2.5 ML NEBU INHALATION SCH (08:53)
[2024-04-02] MEDS: SYMBICORT 80-4.5 MCG INHALER INHALATION SCH (08:53)
[2024-04-02] MEDS ORDERED: metOLazone 2.5 MG TAB PO SCH (09:00)
[2024-04-02] MEDS ORDERED: IPRATROPIUM 0.5 MG/2.5 ML NEBU INHALATION PRN (09:07)
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
[2024-04-02 14:42] VITALS: BMI 20.5
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
[2024-04-02] MEDS: LEVOTHYROXINE 25 MCG TAB PO SCH (18:46)
[2024-04-03] MEDS: ACETAMINOPHEN TAB 325 MG TAB PO PRN (00:34)
[2024-04-03 08:42] LABS: Anisocytosis Slight; Basophils % (A) 0 %; Eosinophils % (A) 0 %; HCT 24.6 % (39.0-53.0); HGB 7.8 gm/dL (13.0-17.5); Hypochromasia Marked; Lymphocytes # (A) 0.5 k/uL (1.0-4.8); Lymphocytes % (A) 5 %; MCH 29.3 pg (25.0-35.0); MCHC 31.6 g/dL (31.0-37.0); MCV 92.6 fL (80.0-100.0); Mean Platelet Volume 9.3; Monocytes # (A) 0.8 k/uL (0-1.0); Monocytes % (A) 9 %; Neutrophils # (A) 7.3 k/uL (1.3-7.7); Neutrophils % (A) 85 %; Poikilocytosis Slight; RBC 2.65 m/uL (4.30-5.90); RDW 18.8 % (11.5-15.5); WBC 8.7 k/uL (3.8-10.6)
[2024-04-03 09:19] LABS: African American GFR (CKD) 18 (>60 ml/min/1.73 sqM); Anion Gap 12 mmol/L; Calcium 8.6 mg/dL (8.4-10.2); Carbon Dioxide 21 mmol/L (22-30); Chloride 99 mmol/L (98-107); Glucose 87 mg/dL (74-99); Non-African American GFR(CKD) 16 (>60 ml/min/1.73 sqM); Phosphorus 4.6 mg/dL (2.5-4.5); Potassium 4.2 mmol/L (3.5-5.1); Sodium 132 mmol/L (137-145)
[2024-04-03 09:29] LABS: Blood Urea Nitrogen 106 mg/dL (9-20)
[2024-04-03 09:59] LABS: Platelet Count 91 k/uL (150-450)
[2024-04-03] MEDS: hydrALAZINE HCL 10 MG TAB PO SCH (12:48)
--- NOTE | 2024-04-03 13:12 | P.PN ---
Subjective patient is seen for follow-up for chronic kidney disease and acute kidney injury. Patient is scheduled for dialysis catheter placement today and he will receive his first hemodialysis treatment today. Family is present at bedside. They are advised that long-term prognosis is poor and it is yet to be seen how patient will tolerate renal replacement therapy. He is more awake today. Blood pressure remains low. I will add parameters for hydralazine. Objective - Vital Signs Vital signs: Vital Signs Temp 96.8 F L 04/03/24 11:42 Pulse 64 04/03/24 11:42 Resp 16 04/03/24 11:42 BP 89/57 04/03/24 11:42 Pulse Ox 98 04/03/24 11:42 FiO2 Intake & Output 04/02/24 04/03/24 04/03/24 18:59 06:59 18:59 Intake Total 940 160 598 Output Total 1350 300 400 Balance -410 -140 198 Weight 72.5 kg 72.5 kg Intake: Oral 940 160 598 Output: Urine 1350 300 400 Other: Voiding Method Indwelling Catheter Indwelling Catheter Indwelling Catheter # Bowel Movements 2 - Exam patient is awake No acute distress. Examination of the heart S1 and S2 Examination of the lungs decreased breath sounds at the bases Abdomen is soft distended obese nontender Examination lower extremity shows chronic skin changes with edema 2+ bilaterally - Labs CBC & Chem 7: 04/03/24 07:54 04/03/24 07:54 Labs: Abnormal Lab Results - Last 24 Hours (Table) 04/03/24 04/03/24 Range/Units 07:54 07:54 RBC 2.65 L (4.30-5.90) m/uL Hgb 7.8 L (13.0-17.5) gm/dL Hct 24.6 L (39.0-53.0) % RDW 18.8 H (11.5-15.5) % Plt Count 91 L (150-450) k/uL Lymphocytes # 0.5 L (1.0-4.8) k/uL Sodium 132 L (137-145) mmol/L Carbon Dioxide 21 L (22-30) mmol/L BUN 106 H* (9-20) mg/dL Creatinine 3.54 H (0.66-1.25) mg/dL Phosphorus 4.6 H (2.5-4.5) mg/dL Assessment and Plan Assessment: 1. 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 Baseline creatinine recently has been about 2.5 mg/dL. 2. Acute kidney injury secondary to ATN, cardiorenal syndrome versus progression of underlying CK D. 3. Chronic systolic CHFwith EF of 30-35% with sugh-he-mvegfcly mitral and tricuspid regurgitation and moderate pulmonary hypertension. 4. Hypervolemic hyponatremia 5. Persistent A. fib 6. Moderate pulmonary hypertension Plan: discussed with patient and family. We will proceed with trial of renal rep lacement therapy. Vascular surgery has been consulted and we will plan for first treatment today. Patient's family is advised that patient may not be able to tolerate hemodialysis well given his poor cardiac status. Continue off of IV fluids. Add parameters for hydralazine. Continue with Knott catheter prognosis is guarded.
--- NOTE | 2024-04-03 13:23 | P.PN ---
Subjective HISTORY OF PRESENT ILLNESS: This is a 78-year-old male with a past medical history significant for mild nonobstructive CAD, nonischemic cardiomyopathy, AICD implantation, atrial fibrillation, hypertension, hyperlipidemia, and pulmonary hypertension. Patient follows in the office with Dr. Mccrary. We have been asked to see the patient in consultation for congestive heart failure. Patient examined at the bedside. Patient was just admitted to the hospital and discharged last week. Patient was admitted for CHF exacerbation, urinary retention, urinary tract infection, and acute kidney injury. Patient is admitted back to the hospital with worsening kidney function. His family is at the bedside and states he has not been eating or drinking well. Creatinine 3.71 on admission. Patient was started on IV fluids. He denies any chest pain or pressure. Vital signs are stable. Patients family states someone told them that patient may be a candidate for LVAD. Dr. Guerin spoke to family and discussed that he is not a candidate for LVAD. DIAGNOSTICS: - EKG reveals intermittent paced rhythm with underlying atrial fibrillation. IVCD. - Chest xray cardiomegaly, pulmonary vascular congestion and bilateral pleural effusions. - Laboratory data: WBC 8.8. Hemoglobin 8.1. Platelet count 106. Sodium 131. Potassium 4.3. BUN 110. Creatinine 3.69. Troponin 0.043. TSH 16.6. Free T40.92. - Current home cardiac medications include Aldactone 50 mg daily, simvastatin 20 mg at night, metoprolol succinate 12.5 mg at night, metolazone 2.5 mg daily, hydralazine 30 mg 4 times a day, Isordil 20 mg 3 times a day, Bumex 2 mg twice a day, Farxiga 10 mg daily, Eliquis 2.5 mg twice a day, amiodarone 200 mg daily. - Most recent echocardiogram obtained in October 2023 revealed ejection fraction 30 to 35%, moderate pulmonary hypertension, mild to moderate mitral regurgitation, mild aortic regurgitation, mild to moderate tricuspid regurgitation - Cardiac catheterization history: January 2018 revealing 50% mid LAD lesion 04/03/2024 Patient examined this morning the bedside. Patient's family is present. Patient currently denies chest pain or pressure. Patient's creatinine remains elevated today at 3.54. He has been evaluated by nephrology and plans are underway for hemodialysis catheter insertion this afternoon and patient is to begin hemodialysis following catheter insertion. Patient's blood pressures are soft with a systolic ranging between 8090. PHYSICAL EXAM: VITAL SIGNS: Reviewed. GENERAL: Well-developed in no acute distress. HEENT: Head is normocephalic. Pupils are equal, round. Sclerae anicteric. Mucous membranes of the mouth reveal signs that patient was dehydrated, improving. Neck supple. Mild JVD LUNGS: Respirations even and unlabored. Lungs with mild crackles at the bases HEART: Regular rate and rhythm. S1 and S2 heard. ABDOMEN: Soft. Nondistended. Nontender. : Indwelling urinary catheter noted EXTREMITIES: Normal range of motion. No clubbing or cyanosis. Peripheral pulses intact. 1+ bilateral lower extremity edema NEUROLOGIC: Awake and alert. Oriented x 3. ASSESSMENT: Acute on chronic kidney disease Decreased oral intake Hyponatremia Mild nonobstructive CAD, 50% mid LAD lesion per cardiac catheterization 2017 Nonischemic cardiomyopathy, EF 30 to 35% History of AICD implantation Persistent atrial fibrillation Hypertension Hyperlipidemia Moderate pulmonary hypertension Valvular heart disease including mild to moderate MR, mild AR, mild to moderate TR PLAN: Farxiga and Aldactone discontinued due to worsening kidney function Continue additional cardiac medications Patient has opted to begin hemodialysis. Patient to have hemodialysis catheter inserted today and then begin hemodialysis. Nephrology is following. Discussed possibility of palliative care again with patient's family. Will defer further palliative care evaluation to primary medicine. Further recommendations pending patient course Nurse practitioner note has been reviewed by physician. Signing provider agrees with the documented findings, assessment, and plan of care documented by HEMATOLOGY SUPERVISOR as a scribe. Objective - Vital Signs Vital signs: Vital Signs Temp 96.8 F L 04/03/24 11:42 Pulse 64 04/03/24 11:42 Resp 16 04/03/24 11:42 BP 89/57 04/03/24 11:42 Pulse Ox 98 04/03/24 11:42 FiO2 Intake & Output 04/02/24 04/03/24 04/03/24 18:59 06:59 18:59 Intake Total 940 160 598 Output Total 1350 300 400 Balance -410 -140 198 Weight 72.5 kg 72.5 kg Intake: Oral 940 160 598 Output: Urine 1350 300 400 Other: Voiding Method Indwelling Catheter Indwelling Catheter Indwelling Catheter # Bowel Movements 2 - Labs CBC & Chem 7: 04/03/24 07:54 04/03/24 07:54 Labs: Abnormal Lab Results - Last 24 Hours (Table) 04/03/24 04/03/24 Range/Units 07:54 07:54 RBC 2.65 L (4.30-5.90) m/uL Hgb 7.8 L (13.0-17.5) gm/dL Hct 24.6 L (39.0-53.0) % RDW 18.8 H (11.5-15.5) % Plt Count 91 L (150-450) k/uL Lymphocytes # 0.5 L (1.0-4.8) k/uL Sodium 132 L (137-145) mmol/L Carbon Dioxide 21 L (22-30) mmol/L BUN 106 H* (9-20) mg/dL Creatinine 3.54 H (0.66-1.25) mg/dL Phosphorus 4.6 H (2.5-4.5) mg/dL
[2024-04-03] MEDS ORDERED: HEPARIN SODIUM 1,000 UN/ML (10ML VL) ONE (14:05)
[2024-04-03] MEDS ORDERED: LIDOCAINE 1% INJ 10MG/ML (20 ML MDV) ONE (14:05)
[2024-04-03] MEDS: LIDOCAINE 1% INJ 10MG/ML (20 ML MDV) SQ ONE (14:42)
[2024-04-03] MEDS: SODIUM CHLORIDE 0.9% 250 ML IV ONE (14:44)
[2024-04-03] MEDS: IOPAMIDOL-370 100ML BTL INJ ONE (14:58)
--- NOTE | 2024-04-03 15:27 | IR ---
EXAMINATION TYPE: IR cvc insert central tunneled DATE OF EXAM: 04/03/2024 COMPARISON: NONE HISTORY: Fluoroscopy time. Fluoroscopy was provided to the referring clinician.
[2024-04-03] MEDS: MIDODRINE 5 MG TAB PO PRN (19:13)
[2024-04-03] MEDS: MIDODRINE 5 MG TAB PO ONE (20:24)
[2024-04-03] MEDS: DESMOPRESSIN ACETATE 22 MCG in SODIUM CHLORIDE 0.9% 50 ML IVPB ONE (20:28)
[2024-04-03] MEDS: SODIUM CHLORIDE 0.9% 500 ML 200 ML IV ONE (20:30)
--- NOTE | 2024-04-03 22:31 | PCN ---
PROCEDURE NOTE PREOPERATIVE DIAGNOSIS: Acute chronic renal failure. POSTOPERATIVE DIAGNOSIS: Acute chronic renal failure. PROCEDURE PERFORMED: Ultrasound-guided 23 cm dialysis catheter, right jugular approach. DESCRIPTION OF PROCEDURE: The patient was brought to the bean sprout laborer. Right side of the chest and neck were prepped, and drapes applied in the usual sterile manner. 1% lidocaine infiltrated in the neck and chest area. Ultrasound-guided micropuncture was introduced in the right jugular vein. Under fluoroscopy control, then we passed a regular guidewire, which was parked at the inferior vena cava and then tunnel was created. Through the tunnel, we brought 23 cm dialysis catheter. Under fluoroscopy control, dilator was advanced on top of the guidewire. Then, the sheath was advanced on the top of the guidewire. Through the sheath, we introduced the dialysis catheter. Tip of catheter in superior vena and atrial junction, flushed with heparin saline and hep-locked, secured with 3-0 nylon, dressing applied. The patient tolerated the procedure well. The patient will have x-ray of the chest. MMODL / IJN: [id number] /
[2024-04-04 04:43] LABS: Hepatitis B Surface AB- Quant 14.4 mIU/mL
[2024-04-04 04:58] LABS: Hepatitis B Surface Antigen Nonreactive (Nonreactive)
[2024-04-04 11:20] LABS: African American GFR (CKD) 22 (>60 ml/min/1.73 sqM); Anion Gap 11 mmol/L; Blood Urea Nitrogen 93 mg/dL (9-20); Calcium 8.3 mg/dL (8.4-10.2); Carbon Dioxide 18 mmol/L (22-30); Chloride 101 mmol/L (98-107); Glucose 114 mg/dL (74-99); Non-African American GFR(CKD) 19 (>60 ml/min/1.73 sqM); Sodium 130 mmol/L (137-145)
[2024-04-04 11:24] LABS: Anisocytosis Slight; Basophils % (A) 0 %; Eosinophils % (A) 0 %; HCT 24.8 % (39.0-53.0); HGB 7.4 gm/dL (13.0-17.5); Hypochromasia Marked; Lymphocytes # (A) 0.4 k/uL (1.0-4.8); Lymphocytes % (A) 5 %; MCHC 30.1 g/dL (31.0-37.0); MCV 93.1 fL (80.0-100.0); Mean Platelet Volume 9.3; Monocytes # (A) 0.5 k/uL (0-1.0); Monocytes % (A) 6 %; Neutrophils # (A) 7.2 k/uL (1.3-7.7); Neutrophils % (A) 88 %; RBC 2.66 m/uL (4.30-5.90); RDW 18.6 % (11.5-15.5); WBC 8.2 k/uL (3.8-10.6)
[2024-04-04 11:27] LABS: Platelet Count 98 k/uL (150-450)
--- NOTE | 2024-04-04 13:40 | P.PN ---
Subjective patient is seen for follow-up for chronic kidney disease and acute kidney injury. Patient had his first treatment of hemodialysis last night. Blood pressure remained low and patient was taken off after about 45 minutes of being on the machine. Oozing noted from IJ permacath site. Patient did receive DDAVP yesterday. Antihypertensive medications are currently on hold and we will reattempt hemodialysis today. Objective - Vital Signs Vital signs: Vital Signs Temp 98.2 F 04/04/24 07:46 Pulse 63 04/04/24 11:25 Resp 24 04/04/24 11:25 BP 100/61 04/04/24 11:25 Pulse Ox 95 04/04/24 11:25 FiO2 Intake & Output 04/03/24 04/04/24 04/04/24 18:59 06:59 18:59 Intake Total 1188 1120 378 Output Total 625 100 Balance 563 1020 378 Intake: IV 50 Oral 1138 120 378 Hemodialysis 1000 Output: Urine 625 100 Hemodialysis 0 Other: Voiding Method Indwelling Catheter Indwelling Catheter Indwelling Catheter # Bowel Movements 1 - Exam patient is awake, oozing noted from IJ permacath site No acute distress. Examination of the heart S1 and S2 Examination of the lungs decreased breath sounds at the bases Abdomen is soft distended obese nontender Examination lower extremity shows chronic skin changes with edema 2+ bilaterally - Labs CBC & Chem 7: 04/04/24 10:15 04/04/24 10:15 Labs: Abnormal Lab Results - Last 24 Hours (Table) 04/03/24 04/04/24 04/04/24 Range/Units 07:54 10:15 10:15 RBC 2.66 L (4.30-5.90) m/uL Hgb 7.4 L (13.0-17.5) gm/dL Hct 24.8 L (39.0-53.0) % MCHC 30.1 L (31.0-37.0) g/dL RDW 18.6 H (11.5-15.5) % Plt Count 98 L (150-450) k/uL Sodium 130 L (137-145) mmol/L Carbon Dioxide 18 L (22-30) mmol/L BUN 93 H (9-20) mg/dL Creatinine 3.04 H (0.66-1.25) mg/dL Glucose 114 H (74-99) mg/dL Calcium 8.3 L (8.4-10.2) mg/dL Hep Bs Antibody A (Negative) Assessment and Plan Assessment: 1. 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 Baseline creatinine recently has been about 2.5 mg/dL. 2. Acute kidney injury secondary to ATN, cardiorenal syndrome versus progression of underlying CK D. 3. Chronic systolic CHFwith EF of 30-35% with [id number] mitral and tricuspid regurgitation and moderate pulmonary hypertension. 4. Hypervolemic hyponatremia 5. Persistent A. fib 6. Moderate pulmonary hypertension Plan: reattempt hemodialysis today. Patient's family is advised that patient may not be able to tolerate hemodialysis well given his poor cardiac status. hold antihypertensive medications. Repeat DDAVP. Check stat hemoglobin for possible need for packed RBCs transfusion. Continue off of IV fluids. Continue with Knott catheter prognosis is guarded.
[2024-04-04] MEDS: MIDODRINE 5 MG TAB PO PRN (14:39)
--- NOTE | 2024-04-04 16:09 | P.PN ---
Subjective Progress Note Date: 04/04/24 This is a 78-year-old male with a past medical history significant for mild nonobstructive CAD, nonischemic cardiomyopathy, AICD implantation, atrial fibrillation, hypertension, hyperlipidemia, and pulmonary hypertension. Patient follows in the office with Dr. Mccrary. We have been asked to see the patient in consultation for congestive heart failure. Patient examined at the bedside. Patient was just admitted to the hospital and discharged last week. Patient was admitted for CHF exacerbation, urinary retention, urinary tract infection, and acute kidney injury. Patient is admitted back to the hospital with worsening kidney function. His family is at the bedside and states he has not been eating or drinking well. Creatinine 3.71 on admission. Patient was started on IV fluids. He denies any chest pain or pressure. Vital signs are stable. Patients family states someone told them that patient may be a candidate for LVAD. Dr. Guerin spoke to family and discussed that he is not a candidate for LVAD. DIAGNOSTICS: - EKG reveals intermittent paced rhythm with underlying atrial fibrillation. IVCD. - Chest xray cardiomegaly, pulmonary vascular congestion and bilateral pleural effusions. - Laboratory data: WBC 8.8. Hemoglobin 8.1. Platelet count 106. Sodium 131. Potassium 4.3. BUN 110. Creatinine 3.69. Troponin 0.043. TSH 16.6. Free T40.92. - Current home cardiac medications include Aldactone 50 mg daily, simvastatin 20 mg at night, metoprolol succinate 12.5 mg at night, metolazone 2.5 mg daily, hydralazine 30 mg 4 times a day, Isordil 20 mg 3 times a day, Bumex 2 mg twice a day, Farxiga 10 mg daily, Eliquis 2.5 mg twice a day, amiodarone 200 mg daily. - Most recent echocardiogram obtained in October 2023 revealed ejection fraction 30 to 35%, moderate pulmonary hypertension, mild to moderate mitral regurgitation, mild aortic regurgitation, mild to moderate tricuspid re gurgitation - Cardiac catheterization history: January 2018 revealing 50% mid LAD lesion 04/03/2024 Patient examined this morning the bedside. Patient's family is present. Patient currently denies chest pain or pressure. Patient's creatinine remains elevated today at 3.54. He has been evaluated by nephrology and plans are underway for hemodialysis catheter insertion this afternoon and patient is to begin hemodialysis following catheter insertion. Patient's blood pressures are soft with a systolic ranging between 8090. 04/04/2024 Patient is seen and examined at bedside this a.m. Patient got hemodialysis catheter placed yesterday. He only got a brief hemodialysis yesterday due to low normal blood pressure. He has been attempted to get a hemodialysis session today as well. Patient however personally denies having any active chest pain chest pressure. He denies any acute distress. PHYSICAL EXAM: VITAL SIGNS: Reviewed. GENERAL: Well-developed in no acute distress. HEENT: Head is normocephalic. Pupils are equal, round. Sclerae anicteric. Neck supple. Mild JVD , dialysis catheter in place LUNGS: Respirations even and unlabored. Lungs with mild crackles at the bases HEART: Regular rate and rhythm. S1 and S2 heard. ABDOMEN: Soft. Nondistended. Nontender. : Indwelling urinary catheter noted EXTREMITIES: Normal range of motion. No clubbing or cyanosis. Peripheral pulses intact. 1+ bilateral lower extremity edema NEUROLOGIC: Awake and alert. Oriented x 3. ASSESSMENT: Acute on chronic kidney disease Decreased oral intake Hyponatremia Mild nonobstructive CAD, 50% mid LAD lesion per cardiac catheterization 2017 Nonischemic cardiomyopathy, EF 30 to 35% History of AICD implantation Persistent atrial fibrillation Hypertension Hyperlipidemia Moderate pulmonary hypertension Valvular heart disease including mild to moderate MR, mild AR, mild to moderate TR PLAN: Farxiga and Aldactone discontinued due to worsening kidney function Continue additional cardiac medications. Discontinue Isordil due to low blood pressure and inability to tolerate hemodialysis. Continue very low-dose hydralazine 15 mg as per nephrology recommendations Only use midodrine as needed. Patient has opted to begin hemodialysis. Nephrology is following. Discussed possibility of palliative care again with patient's family. Will defer further palliative care evaluation to primary medicine. Objective - Vital Signs Vital signs: Vital Signs Temp 98.2 F 04/04/24 07:46 Pulse 63 04/04/24 11:25 Resp 24 04/04/24 11:25 BP 95/53 04/04/24 14:39 Pulse Ox 95 04/04/24 11:25 FiO2 Intake & Output 04/03/24 04/04/24 04/04/24 18:59 06:59 18:59 Intake Total 1188 1120 378 Output Total 625 100 Balance 563 1020 378 Intake: IV 50 Oral 1138 120 378 Hemodialysis 1000 Output: Urine 625 100 Hemodialysis 0 Other: Voiding Method Indwelling Catheter Indwelling Catheter Indwelling Catheter # Bowel Movements 1 - Labs CBC & Chem 7: 04/04/24 10:15 04/04/24 10:15 Labs: Abnormal Lab Results - Last 24 Hours (Table) 04/03/24 04/04/24 04/04/24 Range/Units 07:54 10:15 10:15 RBC 2.66 L (4.30-5.90) m/uL Hgb 7.4 L (13.0-17.5) gm/dL Hct 24.8 L (39.0-53.0) % MCHC 30.1 L (31.0-37.0) g/dL RDW 18.6 H (11.5-15.5) % Plt Count 98 L (150-450) k/uL Lymphocytes # 0.4 L (1.0-4.8) k/uL Sodium 130 L (137-145) mmol/L Carbon Dioxide 18 L (22-30) mmol/L BUN 93 H (9-20) mg/dL Creatinine 3.04 H (0.66-1.25) mg/dL Glucose 114 H (74-99) mg/dL Calcium 8.3 L (8.4-10.2) mg/dL Hep Bs Antibody A (Negative)
[2024-04-04 18:02] LABS: Anisocytosis Slight; HCT 25.3 % (39.0-53.0); HGB 7.7 gm/dL (13.0-17.5); Hypochromasia Marked; MCH 28.3 pg (25.0-35.0); MCHC 30.2 g/dL (31.0-37.0); MCV 93.6 fL (80.0-100.0); Macrocytosis Slight; Mean Platelet Volume 9.3; Platelet Count 114 k/uL (150-450); Poikilocytosis Slight; RBC 2.71 m/uL (4.30-5.90); RDW 18.8 % (11.5-15.5); WBC 9.1 k/uL (3.8-10.6)
[2024-04-04 18:10] LABS: African American GFR (CKD) 29 (>60 ml/min/1.73 sqM); Anion Gap 10 mmol/L; Blood Urea Nitrogen 67 mg/dL (9-20); Calcium 8.5 mg/dL (8.4-10.2); Carbon Dioxide 22 mmol/L (22-30); Chloride 101 mmol/L (98-107); Glucose 123 mg/dL (74-99); Magnesium 2.1 mg/dL (1.6-2.3); Non-African American GFR(CKD) 25 (>60 ml/min/1.73 sqM); Potassium 3.9 mmol/L (3.5-5.1); Sodium 133 mmol/L (137-145)
[2024-04-04] MEDS: POTASSIUM CHLORIDE ER 20 MEQ TAB.ER PO STA (18:21)
[2024-04-05 10:30] LABS: Anisocytosis Slight; Basophils % (A) 0 %; Eosinophils % (A) 0 %; HCT 23.7 % (39.0-53.0); HGB 7.1 gm/dL (13.0-17.5); Hypochromasia Marked; Lymphocytes # (A) 0.5 k/uL (1.0-4.8); Lymphocytes % (A) 5 %; MCH 28.3 pg (25.0-35.0); MCHC 29.9 g/dL (31.0-37.0); MCV 94.6 fL (80.0-100.0); Macrocytosis Slight; Monocytes # (A) 0.9 k/uL (0-1.0); Monocytes % (A) 10 %; Neutrophils # (A) 7.6 k/uL (1.3-7.7); Neutrophils % (A) 83 %; Platelet Count 100 k/uL (150-450); Poikilocytosis Slight; RDW 18.7 % (11.5-15.5); WBC 9.2 k/uL (3.8-10.6)
[2024-04-05 10:44] LABS: African American GFR (CKD) 28 (>60 ml/min/1.73 sqM); Anion Gap 9 mmol/L; Blood Urea Nitrogen 73 mg/dL (9-20); Calcium 8.3 mg/dL (8.4-10.2); Carbon Dioxide 21 mmol/L (22-30); Chloride 102 mmol/L (98-107); Glucose 120 mg/dL (74-99); Non-African American GFR(CKD) 24 (>60 ml/min/1.73 sqM); Potassium 4.1 mmol/L (3.5-5.1); Sodium 132 mmol/L (137-145)
[2024-04-05] MEDS: MIDODRINE 5 MG TAB PO PRN (13:08)
[2024-04-05 18:13] LABS: Anisocytosis Slight; Basophils % (A) 0 %; Eosinophils % (A) 0 %; HCT 26.8 % (39.0-53.0); HGB 7.9 gm/dL (13.0-17.5); Hypochromasia Marked; Lymphocytes # (A) 0.6 k/uL (1.0-4.8); Lymphocytes % (A) 6 %; MCH 27.4 pg (25.0-35.0); MCHC 29.6 g/dL (31.0-37.0); MCV 92.4 fL (80.0-100.0); Mean Platelet Volume 9.3; Monocytes # (A) 0.8 k/uL (0-1.0); Monocytes % (A) 8 %; Neutrophils # (A) 9.2 k/uL (1.3-7.7); Neutrophils % (A) 85 %; Platelet Count 100 k/uL (150-450); Poikilocytosis Slight; RDW 18.6 % (11.5-15.5); WBC 10.8 k/uL (3.8-10.6)
--- NOTE | 2024-04-05 18:33 | P.PN ---
Subjective patient is seen for follow-up for chronic kidney disease and acute kidney injury. Patient tolerated hemodialysis much better yesterday. He tolerated about 900 mL of UF Mentation has improved. Tolerated treatment quite well today with UF of 1.5 L. Antihypertensive medications on hold. Objective - Vital Signs Vital signs: Vital Signs Temp 97.9 F 04/05/24 17:21 Pulse 78 04/05/24 17:21 Resp 17 04/05/24 17:21 BP 117/68 04/05/24 17:21 Pulse Ox 97 04/05/24 16:00 FiO2 Intake & Output 04/04/24 04/05/24 04/05/24 18:59 06:59 18:59 Intake Total 778 3426 Output Total 2508 446 9049 Balance -747 -100 1926 Weight 72.5 kg Intake: Oral 378 2366 Blood Product 310 Rc As-1 Unit 310 [id number] Hemodialysis 400 750 Output: Urine 625 100 Hemodialysis 900 1500 Other: Voiding Method Indwelling Catheter Indwelling Catheter Indwelling Catheter # Bowel Movements 1 1 - Exam Patient is awake, no bleeding noted from IJ permacath site today No acute distress. Examination of the heart S1 and S2 Examination of the lungs decreased breath sounds at the bases Abdomen is soft distended obese nontender Examination lower extremity shows chronic skin changes with edema 1+ bilaterally - Labs CBC & Chem 7: 04/05/24 17:35 04/05/24 09:53 Labs: Abnormal Lab Results - Last 24 Hours (Table) 04/05/24 04/05/24 04/05/24 Range/Units 09:53 09:53 12:23 WBC (3.8-10.6) k/uL RBC 2.50 L (4.30-5.90) m/uL Hgb 7.1 L (13.0-17.5) gm/dL Hct 23.7 L (39.0-53.0) % MCHC 29.9 L (31.0-37.0) g/dL RDW 18.7 H (11.5-15.5) % Plt Count 100 L (150-450) k/uL Neutrophils # (1.3-7.7) k/uL Lymphocytes # 0.5 L (1.0-4.8) k/uL Sodium 132 L (137-145) mmol/L Carbon Dioxide 21 L (22-30) mmol/L BUN 73 H (9-20) mg/dL Creatinine 2.50 H (0.66-1.25) mg/dL Glucose 120 H (74-99) mg/dL Calcium 8.3 L (8.4-10.2) mg/dL Crossmatch See Detail 04/05/24 Range/Units 17:35 WBC 10.8 H (3.8-10.6) k/uL RBC 2.90 L (4.30-5.90) m/uL Hgb 7.9 L (13.0-17.5) gm/dL Hct 26.8 L (39.0-53.0) % MCHC 29.6 L (31.0-37.0) g/dL RDW 18.6 H (11.5-15.5) % Plt Count 100 L (150-450) k/uL Neutrophils # 9.2 H (1.3-7.7) k/uL Lymphocytes # 0.6 L (1.0-4.8) k/uL Sodium (137-145) mmol/L Carbon Dioxide (22-30) mmol/L BUN (9-20) mg/dL Creatinine (0.66-1.25) mg/dL Glucose (74-99) mg/dL Calcium (8.4-10.2) mg/dL Crossmatch Assessment and Plan Assessment: 1. 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 Baseline creatinine recently has been about 2.5 mg/dL. Started hemodialysis this admission on 04/04/2024. Patient did not tolerate his first treatment on 04/03/2024 due to hypotension. 2. Acute kidney injury secondary to ATN, cardiorenal syndrome versus progression of underlying CK D. 3. Chronic systolic CHFwith EF of 30-35% with [id number] mitral and tricu spid regurgitation and moderate pulmonary hypertension. 4. Hypervolemic hyponatremia 5. Persistent A. fib 6. Moderate pulmonary hypertension Plan: Repeat hemodialysis again in a.m. Currently using small dialyzer F1 40. Continue to hold antihypertensive medications. Encourage increased oral intake. Prognosis remains guarded.
--- NOTE | 2024-04-05 18:36 | P.PN ---
Subjective Progress Note Date: 04/05/24 This is a 78-year-old male with a past medical history significant for mild nonobstructive CAD, nonischemic cardiomyopathy, AICD implantation, atrial fibrillation, hypertension, hyperlipidemia, and pulmonary hypertension. Patient follows in the office with Dr. Mccrary. We have been asked to see the patient in consultation for congestive heart failure. Patient examined at the bedside. Patient was just admitted to the hospital and discharged last week. Patient was admitted for CHF exacerbation, urinary retention, urinary tract infection, and acute kidney injury. Patient is admitted back to the hospital with worsening kidney function. His family is at the bedside and states he has not been eating or drinking well. Creatinine 3.71 on admission. Patient was started on IV fluids. He denies any chest pain or pressure. Vital signs are stable. Patients family states someone told them that patient may be a candidate for LVAD. Dr. Guerin spoke to family and discussed that he is not a candidate for LVAD. DIAGNOSTICS: - EKG reveals intermittent paced rhythm with underlying atrial fibrillation. IVCD. - Chest xray cardiomegaly, pulmonary vascular congestion and bilateral pleural effusions. - Laboratory data: WBC 8.8. Hemoglobin 8.1. Platelet count 106. Sodium 131. Potassium 4.3. BUN 110. Creatinine 3.69. Troponin 0.043. TSH 16.6. Free T40.92. - Current home cardiac medications include Aldactone 50 mg daily, simvastatin 20 mg at night, metoprolol succinate 12.5 mg at night, metolazone 2.5 mg daily, hydralazine 30 mg 4 times a day, Isordil 20 mg 3 times a day, Bumex 2 mg twice a day, Farxiga 10 mg daily, Eliquis 2.5 mg twice a day, amiodarone 200 mg daily. - Most recent echocardiogram obtained in October 2023 revealed ejection fraction 30 to 35%, moderate pulmonary hypertension, mild to moderate mitral regurgitation, mild aortic regurgitation, mild to moderate tricuspid re gurgitation - Cardiac catheterization history: January 2018 revealing 50% mid LAD lesion 04/03/2024 Patient examined this morning the bedside. Patient's family is present. Patient currently denies chest pain or pressure. Patient's creatinine remains elevated today at 3.54. He has been evaluated by nephrology and plans are underway for hemodialysis catheter insertion this afternoon and patient is to begin hemodialysis following catheter insertion. Patient's blood pressures are soft with a systolic ranging between 8090. 04/04/2024 Patient is seen and examined at bedside this a.m. Patient got hemodialysis catheter placed yesterday. He only got a brief hemodialysis yesterday due to low normal blood pressure. He has been attempted to get a hemodialysis session today as well. Patient however personally denies having any active chest pain chest pressure. He denies any acute distress. 04/05/2024 Patient is seen and examined at bedside this a.m. Patient will be planned to get hemodialysis today as well. He had hemodialysis yesterday but due to hypotension it was terminated prematurely. He was able to have 800 cc of fluid removal. Patient denies any chest pain chest pressure or any new cardiovascular symptoms. PHYSICAL EXAM: VITAL SIGNS: Reviewed. GENERAL: Well-developed in no acute distress. HEENT: Head is normocephalic. Pupils are equal, round. Sclerae anicteric. Neck supple. Mild JVD , dialysis catheter in place LUNGS: Respirations even and unlabored. Lungs with mild crackles at the bases HEART: Regular rate and rhythm. S1 and S2 heard. ABDOMEN: Soft. Nondistended. Nontender. : Indwelling urinary catheter noted EXTREMITIES: Normal range of motion. No clubbing or cyanosis. Peripheral pulses intact. 1+ bilateral lower extremity edema NEUROLOGIC: Awake and alert. Oriented x 3. ASSESSMENT: Acute on chronic kidney disease Decreased oral intake Hyponatremia Mild nonobstructive CAD, 50% mid LAD lesion per cardiac catheterization 2017 Nonischemic cardiomyopathy, EF 30 to 35% History of AICD implantation Persistent atrial fibrillation Hypertension Hyperlipidemia Moderate pulmonary hypertension Valvular heart disease including mild to moderate MR, mild AR, mild to moderate TR PLAN: Farxiga and Aldactone discontinued due to worsening kidney function Continue additional cardiac medications. Discontinue Isordil due to low blood pressure and inability to tolerate hemodialysis. Continue very low-dose hydralazine 15 mg as per nephrology recommendations Only use midodrine as needed. Patient has opted to begin hemodialysis. Nephrology is following. Discussed possibility of palliative care again with patient's family. Will defer further palliative care evaluation to primary medicine. Objective - Vital Signs Vital signs: Vital Signs Temp 97.9 F 04/05/24 17:21 Pulse 78 04/05/24 17:21 Resp 17 04/05/24 17:21 BP 117/68 04/05/24 17:21 Pulse Ox 97 04/05/24 16:00 FiO2 Intake & Output 04/04/24 04/05/24 04/05/24 18:59 06:59 18:59 Intake Total 778 3426 Output Total 3415 415 1800 Balance -747 -100 1926 Weight 72.5 kg Intake: Oral 378 2366 Blood Product 310 Rc As-1 Unit 310 [id number] Hemodialysis 400 750 Output: Urine 625 100 Hemodialysis 900 1500 Other: Voiding Method Indwelling Catheter Indwelling Catheter Indwelling Catheter # Bowel Movements 1 1 - Labs CBC & Chem 7: 04/05/24 17:35 04/05/24 09:53 Labs: Abnormal Lab Results - Last 24 Hours (Table) 04/05/24 04/05/24 04/05/24 Range/Units 09:53 09:53 12:23 WBC (3.8-10.6) k/uL RBC 2.50 L (4.30-5.90) m/uL Hgb 7.1 L (13.0-17.5) gm/dL Hct 23.7 L (39.0-53.0) % MCHC 29.9 L (31.0-37.0) g/dL RDW 18.7 H (11.5-15.5) % Plt Count 100 L (150-450) k/uL Neutrophils # (1.3-7.7) k/uL Lymphocytes # 0.5 L (1.0-4.8) k/uL Sodium 132 L (137-145) mmol/L Carbon Dioxide 21 L (22-30) mmol/L BUN 73 H (9-20) mg/dL Creatinine 2.50 H (0.66-1.25) mg/dL Glucose 120 H (74-99) mg/dL Calcium 8.3 L (8.4-10.2) mg/dL Crossmatch See Detail 04/05/24 Range/Units 17:35 WBC 10.8 H (3.8-10.6) k/uL RBC 2.90 L (4.30-5.90) m/uL Hgb 7.9 L (13.0-17.5) gm/dL Hct 26.8 L (39.0-53.0) % MCHC 29.6 L (31.0-37.0) g/dL RDW 18.6 H (11.5-15.5) % Plt Count 100 L (150-450) k/uL Neutrophils # 9.2 H (1.3-7.7) k/uL Lymphocytes # 0.6 L (1.0-4.8) k/uL Sodium (137-145) mmol/L Carbon Dioxide (22-30) mmol/L BUN (9-20) mg/dL Creatinine (0.66-1.25) mg/dL Glucose (74-99) mg/dL Calcium (8.4-10.2) mg/dL Crossmatch
[2024-04-05 22:27] LABS: Anisocytosis Slight; HCT 25.6 % (39.0-53.0); HGB 7.9 gm/dL (13.0-17.5); Hypochromasia Marked; MCH 28.5 pg (25.0-35.0); MCHC 30.9 g/dL (31.0-37.0); MCV 92.2 fL (80.0-100.0); Mean Platelet Volume 9.8; Platelet Count 106 k/uL (150-450); Poikilocytosis Slight; RBC 2.77 m/uL (4.30-5.90); RDW 18.7 % (11.5-15.5); WBC 11.5 k/uL (3.8-10.6)
[2024-04-05 22:31] LABS: ALT 20 U/L (4-49); AST 42 U/L (17-59); African American GFR (CKD) 32 (>60 ml/min/1.73 sqM); Anion Gap 9 mmol/L; Blood Urea Nitrogen 56 mg/dL (9-20); Calcium 8.4 mg/dL (8.4-10.2); Carbon Dioxide 23 mmol/L (22-30); Chloride 101 mmol/L (98-107); Glucose 121 mg/dL (74-99); Non-African American GFR(CKD) 28 (>60 ml/min/1.73 sqM); Potassium 3.8 mmol/L (3.5-5.1); Sodium 133 mmol/L (137-145)
[2024-04-06 08:45] LABS: Glucose,Whole Blood 179 mg/dL (70-110)
[2024-04-06 09:12] LABS: Anisocytosis Slight; Basophils % (A) 0 %; Eosinophils % (A) 0 %; HCT 24.5 % (39.0-53.0); HGB 7.3 gm/dL (13.0-17.5); Hypochromasia Marked; Lymphocytes # (A) 0.5 k/uL (1.0-4.8); Lymphocytes % (A) 6 %; MCH 27.4 pg (25.0-35.0); MCHC 29.8 g/dL (31.0-37.0); Mean Platelet Volume 9.7; Monocytes # (A) 0.6 k/uL (0-1.0); Monocytes % (A) 7 %; Neutrophils # (A) 8.2 k/uL (1.3-7.7); Neutrophils % (A) 86 %; Platelet Count 107 k/uL (150-450); Poikilocytosis Slight; RBC 2.66 m/uL (4.30-5.90); RDW 18.8 % (11.5-15.5); WBC 9.5 k/uL (3.8-10.6)
[2024-04-06 09:21] LABS: African American GFR (CKD) 32 (>60 ml/min/1.73 sqM); Anion Gap 8 mmol/L; Blood Urea Nitrogen 59 mg/dL (9-20); Calcium 8.4 mg/dL (8.4-10.2); Carbon Dioxide 25 mmol/L (22-30); Chloride 100 mmol/L (98-107); Glucose 142 mg/dL (74-99); Non-African American GFR(CKD) 27 (>60 ml/min/1.73 sqM); Potassium 3.7 mmol/L (3.5-5.1); Sodium 133 mmol/L (137-145)
--- NOTE | 2024-04-06 10:58 | P.PN ---
Subjective Progress Note Date: 04/03/24 Patient is a 78-year-old male with a past medical history of nonischemic cardiomyopathy ejection fraction 20 to 35% status post ICD placement, mild nonobstructive coronary artery disease, CKD stage IV, hypertension, hyperlipidemia, osteoarthritis, prior history of smoking presents to ER due to outpatient abnormal lab test. Patient was found to have elevated BUN/creatinine level and worsening renal function. Patient is also complaining of shortness of breath and leg swelling. Patient otherwise denies any complaints of fever or chills. No complaints of chest pain. Patient has been having decreased appetite, nausea and poor oral intake. Denies any diarrhea or abdominal pain. Patient was recently admitted to the hospital and was discharged on 03/26/2024. Patient was admitted due to CHF exacerbation and Enterococcus UTI with chronic indwelling Knott catheter. On admission EKG showed electronic ventricular paced rhythm. Chest x-ray showed cardiomegaly, pulmonary vascular congestion and bilateral pleural effusions. Correlated with BNP for congestive heart failure. Laboratory data showed WBC 8.6 hemoglobin 8.9 and platelets 100 INR 1.5, sodium 133 potassium 4.7 chloride 99 bicarb is 20 BUN 110 and creatinine 3.71 and blood sugar 111 phosphorus 5.2 total bili 1.5, troponin 0.043, free T40.92 And TSH 16.6. 04/03/2024 Patient is lying in the bed. Awake and alert but lethargic and drowsy. No complaints chest pain. Patient still have exertional dyspnea and also leg swelling. Patient has been afebrile. No nausea or vomiting patient has very minimal oral intake. Laboratory data showed WBC 8.8 hemoglobin 8.1 and platelets 106 sodium 131 potassium 4.3 chloride 101 bicarb is 17 BUN 110 and creatinine 3.69 and blood sugar 102. Patient was started on levothyroxine 25 mcg daily. Nephrology is recommending renal replacement therapy. Vascular surgery was consulted for hemodialysis catheter placement. Continue to offer fluids. Patient is on Knott catheter. Current medications reviewed. Objective - Vital Signs Vital signs: Vital Signs Temp 97.1 F L 04/03/24 08:00 Pulse 73 04/03/24 08:00 Resp 18 04/03/24 08:00 BP 91/57 04/03/24 08:00 Pulse Ox 98 04/03/24 09:09 FiO2 Intake & Output 06/09/1504/03/24 04/03/24 18:59 06:59 18:59 Intake Total 940 160 240 Output Total 1350 300 225 Balance -410 -140 15 Weight 72.5 kg 72.5 kg Intake: Oral 940 160 240 Output: Urine 1350 300 225 Other: Voiding Method Indwelling Catheter Indwelling Catheter Indwelling Catheter # Bowel Movements 2 - Exam PHYSICAL EXAMINATION: Patient is lying in the bed, no acute distress, awake alert and oriented.. HEENT: Normocephalic. Neck is supple. Pupils reactive. Nostrils clear. Oral cavity is moist. Neck reveals no JVD, carotid bruits, or thyromegaly. CHEST EXAMINATION: Trachea is central. Symmetrical expansion. Bibasilar crackles and nonlabored breathing. No wheezing or rhonchi.. CARDIAC: Normal S1, S2 with no gallops. No murmurs ABDOMEN: Soft. Bowel sounds normal. No organomegaly. No abdominal bruits. Extremities: 3+ bilateral pedal edema. No clubbing or cyanosis Neurologically awake, alert, oriented x 2-3 with well-coordinated movements. No gross focal deficits noted Skin: No rash or skin lesions. Psychiatric: Coperative. Nonsuicidal Musculoskeletal: No joint swelling or deformity. - Labs CBC & Chem 7: 04/06/24 08:56 04/06/24 08:56 Labs: Abnormal Lab Results - Last 24 Hours (Table) 04/02/24 04/03/24 04/03/24 Range/Units 05:18 07:54 07:54 RBC 2.65 L (4.30-5.90) m/uL Hgb 7.8 L (13.0-17.5) gm/dL Hct 24.6 L (39.0-53.0) % RDW 18.8 H (11.5-15.5) % Plt Count 91 L (150-450) k/uL Lymphocytes # 0.5 L (1.0-4.8) k/uL Sodium 132 L (137-145) mmol/L Carbon Dioxide 21 L (22-30) mmol/L BUN 106 H* (9-20) mg/dL Creatinine 3.54 H (0.66-1.25) mg/dL Phosphorus 4.6 H (2.5-4.5) mg/dL Free T3 pg/mL 1.20 L (2.30-4.20) pg/mL Assessment and Plan Assessment: Acute kidney injury due to ATN and cardiorenal. Creatinine 3.7 on admission. Baseline creatinine around 2.5. CKD stage IV secondary to hypertension nephrosclerosis Loss of appetite and decreased oral intake. Shortness of breath secondary to fluid overload Hyponatremia, hypervolemic likely due to CKD Normocytic anemia/anemia of chronic disease with hemoglobin 8.9 on admission Hypothyroidism with elevated TSH level 16.6 and free T31.2 Nonischemic cardiomyopathy ejection fraction 30 to 35% status post ICD placement Mild nonobstructive coronary artery disease Persistent atrial fibrillation on anticoagulation Moderate pulmonary hypertension Hypertension Hyperlipidemia Valvular heart disease including mild to moderate MR and mild AR and mild to moderate TR. Chronic urinary retention on Knott catheter. Recently twice daily UTI DVT and GI prophylaxis Plan: Patient was seen by nephrology and advised renal replacement therapy which she is agreeable as per family. Continue off IV fluids. Farxiga and spironolactone is on hold due to JAC Patient is being continued on blood pressure medications and continue with Knott catheter. Continue with her home medications and follow-up closely. Cardiology and nephrology is on board. Prognosis is guarded at this time. Time with Patient: Greater than 30
--- NOTE | 2024-04-06 11:03 | P.PN ---
Subjective Progress Note Date: 04/04/24 Patient is a 78-year-old male with a past medical history of nonischemic cardiomyopathy ejection fraction 20 to 35% status post ICD placement, mild nonobstructive coronary artery disease, CKD stage IV, hypertension, hyperlipidemia, osteoarthritis, prior history of smoking presents to ER due to outpatient abnormal lab test. Patient was found to have elevated BUN/creatinine level and worsening renal function. Patient is also complaining of shortness of breath and leg swelling. Patient otherwise denies any complaints of fever or chills. No complaints of chest pain. Patient has been having decreased appetite, nausea and poor oral intake. Denies any diarrhea or abdominal pain. Patient was recently admitted to the hospital and was discharged on 03/26/2024. Patient was admitted due to CHF exacerbation and Enterococcus UTI with chronic indwelling Knott catheter. On admission EKG showed electronic ventricular paced rhythm. Chest x-ray showed cardiomegaly, pulmonary vascular congestion and bilateral pleural effusions. Correlated with BNP for congestive heart failure. Laboratory data showed WBC 8.6 hemoglobin 8.9 and platelets 100 INR 1.5, sodium 133 potassium 4.7 chloride 99 bicarb is 20 BUN 110 and creatinine 3.71 and blood sugar 111 phosphorus 5.2 total bili 1.5, troponin 0.043, free T40.92 And TSH 16.6. 04/03/2024 Patient is lying in the bed. Awake and alert but lethargic and drowsy. No complaints chest pain. Patient still have exertional dyspnea and also leg swelling. Patient has been afebrile. No nausea or vomiting patient has very minimal oral intake. Laboratory data showed WBC 8.8 hemoglobin 8.1 and platelets 106 sodium 131 potassium 4.3 chloride 101 bicarb is 17 BUN 110 and creatinine 3.69 and blood sugar 102. Patient was started on levothyroxine 25 mcg daily. Nephrology is recommending renal replacement therapy. Vascular surgery was consulted for hemodialysis catheter placement. Continue to offer fluids. Patient is on Knott catheter. 04/04/2024 Patient is lying in the bed. Awake alert but still lethargic. Was able to communicate. Very minimal oral intake. Patient has been afebrile. Otherwise patient had right IJ permacath was placed. Did have some oozing of the blood from the site of the catheter insertion site. Patient was given DDAVP yesterday. Otherwise blood pressure is marginal. Denies any dizziness or lightheadedness. Patient is scheduled to get hemodialysis today. Laboratory test showed WBC 8.2 hemoglobin 7.4 and platelets 98 sodium 130 potassium 4.0 chloride 101 bicarb is 18 BUN 93 and creatinine 3.04 and blood sugar 114. Current medications reviewed. Objective - Vital Signs Vital signs: Vital Signs Temp 98.2 F 04/04/24 07:46 Pulse 81 04/04/24 07:46 Resp 24 04/04/24 07:46 BP 103/70 04/04/24 10:12 Pulse Ox 98 04/04/24 08:41 FiO2 Intake & Output 04/03/24 04/04/24 04/04/24 18:59 06:59 18:59 Intake Total 1188 1120 218 Output Total 625 100 Balance 563 1020 218 Intake: IV 50 Oral 1138 120 218 Hemodialysis 1000 Output: Urine 625 100 Hemodialysis 0 Other: Voiding Method Indwelling Catheter Indwelling Catheter Indwelling Catheter # Bowel Movements 1 - Exam PHYSICAL EXAMINATION: Patient is lying in the bed, no acute distress, awake alert and oriented.. HEENT: Normocephalic. Neck is supple. Pupils reactive. Nostrils clear. Oral cavity is moist. Neck reveals no JVD, carotid bruits, or thyromegaly. Right IJ catheter with oozing of blood from the site and also bruising over the right side of the neck. CHEST EXAMINATION: Trachea is central. Symmetrical expansion. Bibasilar crackles and nonlabored breathing. No wheezing or rhonchi.. CARDIAC: Normal S1, S2 with no gallops. No murmurs ABDOMEN: Soft. Bowel sounds normal. No organomegaly. No abdominal bruits. Extremities: 3+ bilateral pedal edema. No clubbing or cyanosis Neurologically awake, alert, oriented x 2-3 with well-coordinated movements. No gross focal deficits noted Skin: No rash or skin lesions. Psychiatric: Coperative. Nonsuicidal Musculoskeletal: No joint swelling or deformity. - Labs CBC & Chem 7: 04/06/24 08:56 04/06/24 08:56 Labs: Abnormal Lab Results - Last 24 Hours (Table) 04/03/24 04/04/24 Range/Units 07:54 10:15 Sodium 130 L (137-145) mmol/L Carbon Dioxide 18 L (22-30) mmol/L BUN 93 H (9-20) mg/dL Creatinine 3.04 H (0.66-1.25) mg/dL Glucose 114 H (74-99) mg/dL Calcium 8.3 L (8.4-10.2) mg/dL Hep Bs Antibody A (Negative) Assessment and Plan Assessment: Acute kidney injury due to ATN and cardiorenal. Creatinine 3.7 on admission. Baseline creatinine around 2.5. Patient was initiated on hemodialysis on 04/03/2024 CKD stage IV secondary to hypertension nephrosclerosis Loss of appetite and decreased oral intake. Shortness of breath secondary to fluid overload Hyponatremia, hypervolemic likely due to CKD Normocytic anemia/anemia of chronic disease with hemoglobin 8.9 on admission Hypothyroidism with elevated TSH level 16.6 and free T31.2 Nonischemic cardiomyopathy ejection fraction 30 to 35% status post ICD placement Mild nonobstructive coronary artery disease Persistent atrial fibrillation on anticoagulation Moderate pulmonary hypertension Hypertension Hyperlipidemia Valvular heart disease including mild to moderate MR and mild AR and mild to moderate TR. Chronic urinary retention on Knott catheter. Recently twice daily UTI DVT and GI prophylaxis Plan: Patient was seen by nephrology and advised renal replacement therapy which she is agreeable as per family. Continue off IV fluids. Hemodialysis has been initiated by nephrology. Farxiga and spironolactone is on hold due to JAC Patient is being continued on blood pressure medications and continue with Knott catheter. Continue with her home medications and follow-up closely. Cardiology and nephrology is on board. Prognosis is guarded at this time. Time with Patient: Greater than 30
--- NOTE | 2024-04-06 11:06 | P.PN ---
Subjective Progress Note Date: 04/05/24 Patient is a 78-year-old male with a past medical history of nonischemic cardiomyopathy ejection fraction 20 to 35% status post ICD placement, mild nonobstructive coronary artery disease, CKD stage IV, hypertension, hyperlipidemia, osteoarthritis, prior history of smoking presents to ER due to outpatient abnormal lab test. Patient was found to have elevated BUN/creatinine level and worsening renal function. Patient is also complaining of shortness of breath and leg swelling. Patient otherwise denies any complaints of fever or chills. No complaints of chest pain. Patient has been having decreased appetite, nausea and poor oral intake. Denies any diarrhea or abdominal pain. Patient was recently admitted to the hospital and was discharged on 03/26/2024. Patient was admitted due to CHF exacerbation and Enterococcus UTI with chronic indwelling Knott catheter. On admission EKG showed electronic ventricular paced rhythm. Chest x-ray showed cardiomegaly, pulmonary vascular congestion and bilateral pleural effusions. Correlated with BNP for congestive heart failure. Laboratory data showed WBC 8.6 hemoglobin 8.9 and platelets 100 INR 1.5, sodium 133 potassium 4.7 chloride 99 bicarb is 20 BUN 110 and creatinine 3.71 and blood sugar 111 phosphorus 5.2 total bili 1.5, troponin 0.043, free T40.92 And TSH 16.6. 04/03/2024 Patient is lying in the bed. Awake and alert but lethargic and drowsy. No complaints chest pain. Patient still have exertional dyspnea and also leg swelling. Patient has been afebrile. No nausea or vomiting patient has very minimal oral intake. Laboratory data showed WBC 8.8 hemoglobin 8.1 and platelets 106 sodium 131 potassium 4.3 chloride 101 bicarb is 17 BUN 110 and creatinine 3.69 and blood sugar 102. Patient was started on levothyroxine 25 mcg daily. Nephrology is recommending renal replacement therapy. Vascular surgery was consulted for hemodialysis catheter placement. Continue to offer fluids. Patient is on Knott catheter. 04/04/2024 Patient is lying in the bed. Awake alert but still lethargic. Was able to communicate. Very minimal oral intake. Patient has been afebrile. Otherwise patient had right IJ permacath was placed. Did have some oozing of the blood from the site of the catheter insertion site. Patient was given DDAVP yesterday. Otherwise blood pressure is marginal. Denies any dizziness or lightheadedness. Patient is scheduled to get hemodialysis today. Laboratory test showed WBC 8.2 hemoglobin 7.4 and platelets 98 sodium 130 potassium 4.0 chloride 101 bicarb is 18 BUN 93 and creatinine 3.04 and blood sugar 114. 04/05/2024 Patient is resting in bed. Awake alert and oriented. Still weak and lethargic. Was able to tolerate hemodialysis better yesterday. Patient is scheduled for another hemodialysis today. Otherwise blood pressure is marginal. Hemoglobin dropped to 7.1 and is being transfused with 1 unit of PRBC with dialysis today. Denies any dizziness or lightheadedness. Still has some oozing of the blood and bruising on the right upper chest and neck. Laboratory data showed WBC 9.2 hemoglobin 7.1 and platelets 100 sodium 132 potassium 4.1 chloride 102 bicarb is 21 BUN 73 and creatinine 2.5 and blood s ugar 120 and calcium 8.3. Current medications reviewed. Objective - Vital Signs Vital signs: Vital Signs Temp 97.9 F 04/05/24 20:01 Pulse 66 04/05/24 20:58 Resp 16 04/05/24 20:58 BP 92/52 04/05/24 21:58 Pulse Ox 95 04/05/24 20:58 FiO2 Intake & Output 04/05/24 04/05/24 04/06/24 06:59 18:59 06:59 Intake Total 3426 Output Total 100 1500 Balance -100 1926 Weight 72.5 kg Intake: Oral 2366 Blood Product 310 Rc As-1 Unit 310 [id number] Hemodialysis 750 Output: Urine 100 Hemodialysis 1500 Other: Voiding Method Indwelling Catheter Indwelling Catheter Indwelling Catheter # Bowel Movements 1 - Exam PHYSICAL EXAMINATION: Patient is lying in the bed, no acute distress, awake alert and oriented.. HEENT: Normocephalic. Neck is supple. Pupils reactive. Nostrils clear. Oral cavity is moist. Neck reveals no JVD, carotid bruits, or thyromegaly. Right IJ catheter with oozing of blood from the site and also bruising over the right side of the neck. CHEST EXAMINATION: Trachea is central. Symmetrical expansion. Bibasilar crackles and nonlabored breathing. No wheezing or rhonchi.. CARDIAC: Normal S1, S2 with no gallops. No murmurs ABDOMEN: Soft. Bowel sounds normal. No organomegaly. No abdominal bruits. Extremities: 3+ bilateral pedal edema. No clubbing or cyanosis Neurologically awake, alert, oriented x 2-3 with well-coordinated movements. No gross focal deficits noted Skin: No rash or skin lesions. Psychiatric: Coperative. Nonsuicidal Musculoskeletal: No joint swelling or deformity. - Labs CBC & Chem 7: 04/06/24 08:56 04/06/24 08:56 Labs: Abnormal Lab Results - Last 24 Hours (Table) 04/05/24 04/05/24 04/05/24 Range/Units 09:53 09:53 12:23 WBC (3.8-10.6) k/uL RBC 2.50 L (4.30-5.90) m/uL Hgb 7.1 L (13.0-17.5) gm/dL Hct 23.7 L (39.0-53.0) % MCHC 29.9 L (31.0-37.0) g/dL RDW 18.7 H (11.5-15.5) % Plt Count 100 L (150-450) k/uL Neutrophils # (1.3-7.7) k/uL Lymphocytes # 0.5 L (1.0-4.8) k/uL Sodium 132 L (137-145) mmol/L Carbon Dioxide 21 L (22-30) mmol/L BUN 73 H (9-20) mg/dL Creatinine 2.50 H (0.66-1.25) mg/dL Glucose 120 H (74-99) mg/dL Calcium 8.3 L (8.4-10.2) mg/dL Crossmatch See Detail 04/05/24 Range/Units 17:35 WBC 10.8 H (3.8-10.6) k/uL RBC 2.90 L (4.30-5.90) m/uL Hgb 7.9 L (13.0-17.5) gm/dL Hct 26.8 L (39.0-53.0) % MCHC 29.6 L (31.0-37.0) g/dL RDW 18.6 H (11.5-15.5) % Plt Count 100 L (150-450) k/uL Neutrophils # 9.2 H (1.3-7.7) k/uL Lymphocytes # 0.6 L (1.0-4.8) k/uL Sodium (137-145) mmol/L Carbon Dioxide (22-30) mmol/L BUN (9-20) mg/dL Creatinine (0.66-1.25) mg/dL Glucose (74-99) mg/dL Calcium (8.4-10.2) mg/dL Crossmatch Assessment and Plan Assessment: Acute kidney injury due to ATN and cardiorenal. Creatinine 3.7 on admission. Baseline creatinine around 2.5. Patient was initiated on hemodialysis on 04/03/2024 CKD stage IV secondary to hypertension nephrosclerosis Loss of appetite and decreased oral intake. Shortness of breath secondary to fluid overload Hyponatremia, hypervolemic likely due to CKD Normocytic anemia/anemia of chronic disease with hemoglobin 8.9 on admission Hypothyroidism with elevated TSH level 16.6 and free T31.2 Nonischemic cardiomyopathy ejection fraction 30 to 35% status post ICD placement Mild nonobstructive coronary artery disease Persistent atrial fibrillation on anticoagulation Moderate pulmonary hypertension Hypertension Hyperlipidemia Valvular heart disease including mild to moderate MR and mild AR and mild to moderate TR. Chronic urinary retention on Knott catheter. Recently twice daily UTI DVT and GI prophylaxis Plan: Patient was seen by nephrology and advised renal replacement therapy which she is agreeable as per family. Continue off IV fluids. Hemodialysis has been initiated by nephrology. Patient is scheduled for third session today. Farxiga and spironolactone is on hold due to JAC Patient will be continued metoprolol. Anticoagulation on hold due to bleeding from this catheter site. continue with Knott catheter. Continue with her home medications and follow-up closely. Cardiology and nephrology is on board. Prognosis is guarded at this time. Discussed with his family regarding CODE STATUS and his wants him to be full code. Time with Patient: Greater than 30
[2024-04-06 12:22] LABS: Glucose,Whole Blood 119 mg/dL (70-110)
[2024-04-06] MEDS: NOREPINEPHRINE 4 MG in SODIUM CHLORIDE 0.9% 250 ML IV SCH (13:57)
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
--- NOTE | 2024-04-06 17:50 | P.PN ---
Subjective Progress Note Date: 04/06/24 This is a 78-year-old male with a past medical history significant for mild nonobstructive CAD, nonischemic cardiomyopathy, AICD implantation, atrial fibrillation, hypertension, hyperlipidemia, and pulmonary hypertension. Patient follows in the office with Dr. Mccrary. We have been asked to see the patient in consultation for congestive heart failure. Patient examined at the bedside. Patient was just admitted to the hospital and discharged last week. Patient was admitted for CHF exacerbation, urinary retention, urinary tract infection, and acute kidney injury. Patient is admitted back to the hospital with worsening kidney function. His family is at the bedside and states he has not been eating or drinking well. Creatinine 3.71 on admission. Patient was started on IV fluids. He denies any chest pain or pressure. Vital signs are stable. Patients family states someone told them that patient may be a candidate for LVAD. Dr. Guerin spoke to family and discussed that he is not a candidate for LVAD. DIAGNOSTICS: - EKG reveals intermittent paced rhythm with underlying atrial fibrillation. IVCD. - Chest xray cardiomegaly, pulmonary vascular congestion and bilateral pleural effusions. - Laboratory data: WBC 8.8. Hemoglobin 8.1. Platelet count 106. Sodium 131. Potassium 4.3. BUN 110. Creatinine 3.69. Troponin 0.043. TSH 16.6. Free T40.92. - Current home cardiac medications include Aldactone 50 mg daily, simvastatin 20 mg at night, metoprolol succinate 12.5 mg at night, metolazone 2.5 mg daily, hydralazine 30 mg 4 times a day, Isordil 20 mg 3 times a day, Bumex 2 mg twice a day, Farxiga 10 mg daily, Eliquis 2.5 mg twice a day, amiodarone 200 mg daily. - Most recent echocardiogram obtained in October 2023 revealed ejection fraction 30 to 35%, moderate pulmonary hypertension, mild to moderate mitral regurgitation, mild aortic regurgitation, mild to moderate tricuspid re gurgitation - Cardiac catheterization history: January 2018 revealing 50% mid LAD lesion 04/03/2024 Patient examined this morning the bedside. Patient's family is present. Patient currently denies chest pain or pressure. Patient's creatinine remains elevated today at 3.54. He has been evaluated by nephrology and plans are underway for hemodialysis catheter insertion this afternoon and patient is to begin hemodialysis following catheter insertion. Patient's blood pressures are soft with a systolic ranging between 8090. 04/04/2024 Patient is seen and examined at bedside this a.m. Patient got hemodialysis catheter placed yesterday. He only got a brief hemodialysis yesterday due to low normal blood pressure. He has been attempted to get a hemodialysis session today as well. Patient however personally denies having any active chest pain chest pressure. He denies any acute distress. 04/05/2024 Patient is seen and examined at bedside this a.m. Patient will be planned to get hemodialysis today as well. He had hemodialysis yesterday but due to hypotension it was terminated prematurely. He was able to have 800 cc of fluid removal. Patient denies any chest pain chest pressure or any new cardiovascular symptoms. 04/06/2024 Patient was transferred to ICU because of worsening hemodynamics. On telemetry it is noted that patient is having frequent premature ventricular contractions and premature atrial contractions. His systolic blood pressure is around 80s he is requiring low-dose of norepinephrine. He will be attempted to get hemodialysis today. PHYSICAL EXAM: GENERAL: Appears very weak and in moderate distress. HEENT: Elevated JVD , dialysis catheter in place, large ecchymosis in left upper extremity and left chest LUNGS: Reduced inspiratory effort, diminished breath sounds in bilateral lower lung house. HEART: Irregularly irregular pulse, mild systolic murmur audible ABDOMEN: Soft. Nondistended. : Indwelling urinary catheter noted EXTREMITIES: 2+ edema in bilateral lower extremity NEUROLOGIC: Awake and alert. No focal neurological deficit. Detailed neuroexam was not performed. ASSESSMENT: Acute on chronic kidney disease, during hemodialysis Decreased oral intake, failure to thrive Hyponatremia Mild nonobstructive CAD, 50% mid LAD lesion per cardiac catheterization 2017 Nonischemic cardiomyopathy, EF 30 to 35% History of AICD implantation Persistent atrial fibrillation Hypertension Hyperlipidemia Moderate pulmonary hypertension Valvular heart disease including mild to moderate MR, mild AR, mild to moderate TR PLAN: At this time patient is not getting any cardiac medications other than amiodarone and Eliquis. His metoprolol and hydralazine has been on hold because of low blood pressure. His Farxiga and Aldactone has been discontinued. Continue supportive care and as needed norepinephrine. Attempt CRRT therapy Overall prognosis is grave. I have explained the prognosis to patient and patient's son sitting at bedside. I tried to address the CODE STATUS with them. At that time patient and family do not have much clarity about the CODE STATUS. I have opened the discussion of comfort measures and have explained them what it means. Family will make decision in next 1 to 2 days. Objective - Vital Signs Vital signs: Vital Signs Temp 98.2 F 04/06/24 16:00 Pulse 85 04/06/24 16:00 Resp 13 04/06/24 16:00 BP 86/59 04/06/24 16:00 Pulse Ox 97 04/06/24 16:00 FiO2 Intake & Output 04/05/24 04/06/24 04/06/24 18:59 06:59 18:59 Intake Total 3426 Output Total 1500 500 30 Balance 1926 -500 -30 Weight 72.5 kg Intake: Oral 2366 Blood Product 310 Rc As-1 Unit 310 [id number] Hemodialysis 750 Output: Urine 500 30 Hemodialysis 1500 Other: Voiding Method Indwelling Catheter Indwelling Catheter Indwelling Catheter # Bowel Movements 1 - Labs CBC & Chem 7: 04/06/24 08:56 04/06/24 08:56 Labs: Abnormal Lab Results - Last 24 Hours (Table) 04/05/24 04/05/24 04/05/24 Range/Units 17:35 21:34 21:34 WBC 10.8 H 11.5 H (3.8-10.6) k/uL RBC 2.90 L 2.77 L (4.30-5.90) m/uL Hgb 7.9 L 7.9 L (13.0-17.5) gm/dL Hct 26.8 L 25.6 L (39.0-53.0) % MCHC 29.6 L 30.9 L (31.0-37.0) g/dL RDW 18.6 H 18.7 H (11.5-15.5) % Plt Count 100 L 106 L (150-450) k/uL Neutrophils # 9.2 H (1.3-7.7) k/uL Lymphocytes # 0.6 L (1.0-4.8) k/uL Sodium 133 L (137-145) mmol/L BUN 56 H (9-20) mg/dL Creatinine 2.21 H (0.66-1.25) mg/dL Glucose 121 H (74-99) mg/dL POC Glucose (mg/dL) (70-110) mg/dL 04/06/24 04/06/24 04/06/24 Range/Units 08:43 08:56 08:56 WBC (3.8-10.6) k/uL RBC 2.66 L (4.30-5.90) m/uL Hgb 7.3 L (13.0-17.5) gm/dL Hct 24.5 L (39.0-53.0) % MCHC 29.8 L (31.0-37.0) g/dL RDW 18.8 H (11.5-15.5) % Plt Count 107 L (150-450) k/uL Neutrophils # 8.2 H (1.3-7.7) k/uL Lymphocytes # 0.5 L (1.0-4.8) k/uL Sodium 133 L (137-145) mmol/L BUN 59 H (9-20) mg/dL Creatinine 2.25 H (0.66-1.25) mg/dL Glucose 142 H (74-99) mg/dL POC Glucose (mg/dL) 179 H (70-110) mg/dL 04/06/24 Range/Units 12:20 WBC (3.8-10.6) k/uL RBC (4.30-5.90) m/uL Hgb (13.0-17.5) gm/dL Hct (39.0-53.0) % MCHC (31.0-37.0) g/dL RDW (11.5-15.5) % Plt Count (150-450) k/uL Neutrophils # (1.3-7.7) k/uL Lymphocytes # (1.0-4.8) k/uL Sodium (137-145) mmol/L BUN (9-20) mg/dL Creatinine (0.66-1.25) mg/dL Glucose (74-99) mg/dL POC Glucose (mg/dL) 119 H (70-110) mg/dL
--- NOTE | 2024-04-06 19:16 | P.PN ---
Subjective Progress Note Date: 04/06/24 Patient is seen for follow-up for chronic kidney disease and acute kidney injury requiring HD. Breathing stable, plan for HD again today. Moved to ICU for pressor support. Patient is awake, no acute distress. Examination of the heart S1 and S2 Examination of the lungs decreased breath sounds at the bases Abdomen is soft distended obese nontender Examination lower extremity shows chronic skin changes with edema 1+ bilaterally Objective - Vital Signs Vital signs: Vital Signs Temp 96.9 F L 04/06/24 08:30 Pulse 58 L 04/06/24 10:19 Resp 16 04/06/24 10:19 BP 85/53 04/06/24 10:19 Pulse Ox 96 04/06/24 10:19 FiO2 Intake & Output 04/05/24 04/06/24 04/06/24 18:59 06:59 18:59 Intake Total 3426 Output Total 1500 500 Balance 1926 -500 Weight 72.5 kg Intake: Oral 2366 Blood Product 310 Rc As-1 Unit 310 [id number] Hemodialysis 750 Output: Urine 500 Hemodialysis 1500 Other: Voiding Method Indwelling Catheter Indwelling Catheter Indwelling Catheter # Bowel Movements 1 - Labs CBC & Chem 7: 04/06/24 08:56 04/06/24 08:56 Labs: Abnormal Lab Results - Last 24 Hours (Table) 04/05/24 04/05/24 04/05/24 Range/Units 12:23 17:35 21:34 WBC 10.8 H 11.5 H (3.8-10.6) k/uL RBC 2.90 L 2.77 L (4.30-5.90) m/uL Hgb 7.9 L 7.9 L (13.0-17.5) gm/dL Hct 26.8 L 25.6 L (39.0-53.0) % MCHC 29.6 L 30.9 L (31.0-37.0) g/dL RDW 18.6 H 18.7 H (11.5-15.5) % Plt Count 100 L 106 L (150-450) k/uL Neutrophils # 9.2 H (1.3-7.7) k/uL Lymphocytes # 0.6 L (1.0-4.8) k/uL Sodium (137-145) mmol/L BUN (9-20) mg/dL Creatinine (0.66-1.25) mg/dL Glucose (74-99) mg/dL POC Glucose (mg/dL) (70-110) mg/dL Crossmatch See Detail 04/05/24 04/06/24 04/06/24 Range/Units 21:34 08:43 08:56 WBC (3.8-10.6) k/uL RBC 2.66 L (4.30-5.90) m/uL Hgb 7.3 L (13.0-17.5) gm/dL Hct 24.5 L (39.0-53.0) % MCHC 29.8 L (31.0-37.0) g/dL RDW 18.8 H (11.5-15.5) % Plt Count 107 L (150-450) k/uL Neutrophils # 8.2 H (1.3-7.7) k/uL Lymphocytes # 0.5 L (1.0-4.8) k/uL Sodium 133 L (137-145) mmol/L BUN 56 H (9-20) mg/dL Creatinine 2.21 H (0.66-1.25) mg/dL Glucose 121 H (74-99) mg/dL POC Glucose (mg/dL) 179 H (70-110) mg/dL Crossmatch 04/06/24 04/06/24 Range/Units 08:56 12:20 WBC (3.8-10.6) k/uL RBC (4.30-5.90) m/uL Hgb (13.0-17.5) gm/dL Hct (39.0-53.0) % MCHC (31.0-37.0) g/dL RDW (11.5-15.5) % Plt Count (150-450) k/uL Neutrophils # (1.3-7.7) k/uL Lymphocytes # (1.0-4.8) k/uL Sodium 133 L (137-145) mmol/L BUN 59 H (9-20) mg/dL Creatinine 2.25 H (0.66-1.25) mg/dL Glucose 142 H (74-99) mg/dL POC Glucose (mg/dL) 119 H (70-110) mg/dL Crossmatch Assessment and Plan Assessment: 1. 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 Baseline creatinine recently has been about 2.5 mg/dL. Started hemodialysis this admission on 04/04/2024. Patient did not tolerate his first treatment on 04/03/2024 due to hypotension. 2. Acute kidney injury secondary to ATN, cardiorenal syndrome versus progression of underlying CK D. 3. Chronic systolic CHFwith EF of 30-35% with [id number] mitral and tricuspid regurgitation and moderate pulmonary hypertension. 4. Hypervolemic hyponatremia 5. Persistent A. fib 6. Moderate pulmonary hypertension Plan: Repeat hemodialysis today. Currently using small dialyzer F140. Continue to hold antihypertensive medications. Encourage increased oral intake. Prognosis remains guarded. No HD tomorrow and will monitor on Monday for further need of HD. Levophed for BP support
[2024-04-06] MEDS: ONDANSETRON 4 MG TAB PO PRN (22:11)
[2024-04-07 00:03] VITALS: TEMP 97.9
[2024-04-07 00:41] LABS: African American GFR (CKD) 37 (>60 ml/min/1.73 sqM); Anion Gap 8 mmol/L; Blood Urea Nitrogen 41 mg/dL (9-20); Calcium 8.2 mg/dL (8.4-10.2); Carbon Dioxide 26 mmol/L (22-30); Chloride 99 mmol/L (98-107); Glucose 107 mg/dL (74-99); Magnesium 1.9 mg/dL (1.6-2.3); Non-African American GFR(CKD) 32 (>60 ml/min/1.73 sqM); Sodium 133 mmol/L (137-145)
[2024-04-07 01:04] LABS: Anisocytosis Slight; Basophils % (A) 0 %; Eosinophils % (A) 0 %; HCT 27.8 % (39.0-53.0); HGB 8.3 gm/dL (13.0-17.5); Hypochromasia Marked; Lymphocytes # (A) 0.9 k/uL (1.0-4.8); Lymphocytes % (A) 7 %; MCH 27.2 pg (25.0-35.0); MCHC 29.8 g/dL (31.0-37.0); MCV 91.3 fL (80.0-100.0); Mean Platelet Volume 8.8; Monocytes # (A) 0.8 k/uL (0-1.0); Monocytes % (A) 6 %; Neutrophils # (A) 11.4 k/uL (1.3-7.7); Neutrophils % (A) 85 %; Platelet Count 206 k/uL (150-450); Poikilocytosis Slight; RBC 3.04 m/uL (4.30-5.90); RDW 18.6 % (11.5-15.5); WBC 13.5 k/uL (3.8-10.6)
[2024-04-07] MEDS ORDERED: EPINEPHrine 10 ML SYRINGE (0.1 MG/ML) ONE (02:36)
[2024-04-07 02:51] LABS: Glucose,Whole Blood 182 mg/dL (70-110)
[2024-04-07] MEDS ORDERED: ATROPINE OPHTH SOLN 1% 5ML BTL SUBLINGUAL PRN (03:42)
[2024-04-07] MEDS: MORPHINE SULFATE 2 MG/ML SYRINGE IV PRN (03:53)
[2024-04-07] MEDS: MORPHINE SULFATE (100 MG/2 ML) 100 MG in SODIUM CHLORIDE 0.9% 100 ML IV SCH (04:01)
--- NOTE | 2024-04-07 04:17 | P.EN ---
CODE BLUE note Activated at 0232. Arrived at the scene shortly after. Reviewed the chart and discussed the case with the RN. The patient who is admitted for CHF and ESRD was noted to be in V. tach and subsequently V-fib. Defibrillation was performed and the patient subsequently went into pulseless V. tach for which she was cardioverted with subsequent ROSC at 0240. The patient was again cardioverted at 0241. The case was discussed with the patient's at the bedside with regards to the patient's poor prognosis and deteriorating condition. She wishes for us to continue with patient being DNI while receiving shocks as needed. The patient subsequently had pulseless V. tach episode for which he was cardioverted. Please refer to the code sheet for further details. The bean dumper and cardiology teams were notified.
[2024-04-07 07:10] VITALS: RESP 16
--- NOTE | 2024-04-07 08:23 | P.PN ---
Progress Note - Text Progress Note Date: 04/07/24 04/07/2024, the patient was seen early in the morning. Events from yesterday were noted. I was also informed of the significant cardiac complication that the patient had overnight. In summary, the patient was brought into the intensive care unit with he underwent hemodialysis with a 1.5 L of u ltrafiltration. During this time, the patient has required pressors for hemodynamic support. As stated earlier, the patient has severe cardiomyopathy and renal failure. Later on throughout the night, the patient developed ventricular tachycardia and subsequent ventricular fibrillation. This started at 2:32 AM as the patient went into V-fib and was resuscitated based on the ACLS protocol, received several shocks and CPR. The resuscitation initially was successful after 10 minutes and there was return of spontaneous circulation. Subsequently, the patient went again to pulse ox pulseless ventricular tachycardia. At that point, 60 Resuscitation was continued and it was successful again. After having discussion with the family, the family opted for comfort measures and end-of-life care. At that point, all vasopressors were discontinued and the patient was started on morphine drip. He ultimately at 8 AM this morning. Family is at the bedside. Cardiology is aware. [facility] physician was noted. Updated the and discussed with her and answered all her questions to her satisfaction. This is arrangements will be made accordingly.
[2024-04-07 11:02] VITALS: BP 120/103; PULSE 49
--- NOTE | 2024-04-09 21:53 | CDI ---
Documentation Clarification Form Date: 04/09/2024 09:36:38 PM From: Carmel Sanchez Phone: Admit Date: 04/01/2024 05:43:00 PM Patient Name: Kristel Harris Visit Number: [id number] Discharge Date: 04/07/2024 10:00:00 AM ATTENTION: The Clinical Documentation Specialists (CDI) and [facility] Coding Staff appreciate your assistance in clarifying documentation. Please respond to the clarification below the line at the bottom and electronically sign. The CDI & [facility] Coding staff will review the response and follow-up if needed. Please note: Queries are made part of the Legal Health Record. If you have any questions, please contact the author of this message via ITS. Dr. Radha Otoole Encephalopathy is documented per Consult 04/06. Additional clarification regarding the type of encephalopathy is requested. History/Risk Factors: 78yo M, acute on ESRD, hyponatremia, CAD, Enterococcus UTI d/t chronic IFC, NICM, HX AICD, COPD, persistent A. fib, HTN, HLD, PHTN, mild to moderate MR, mild AR, mild to moderate TR Clinical Indicators: Critical careevaluationwas requested. The patient is currently on 2 L of oxygen by nasal cannula with a pulse ox of 95%.BP is 80/46.His white cell count is 11.5 with a hemoglobin 7.3, BUN is 59 with a creatinine of 2.25 and a sodium levels at 133 with a potassium level of 3.4.He is afebrile. He is maintained on amiodarone forchronic atrial [id number] mg p.o. daily and he remains on anticoagulation with Eliquis 2.5 mg p.o. twice a day. Metoprolol and hydralazine currently on hold due to hypotension. Cultures were not obtained during this current admission and the patient is not receiving any form of antibiotic coverage for now. Nevertheless, he is afebrile. Neurologically, the patient has low-gradeencephalopathy, nevertheless, his neurologic examis nonfocal and the patient has profoundweaknessin all 4 extremities. Treatment: Pt went in to v fib; made DNI/DNR and patient Please clarify the type of encephalopathy, if known: [ x ] Due to dialysis [ ] Anoxic Encephalopathy [ ] Other, please specify [ ] Unable to determine (Template Last Revised: December 2020) MTDD
--- NOTE | 2024-05-01 15:26 | CDI ---
Documentation Clarification Form Date: 05/01/2024 02:15:48 PM From: Tabatha Lau RN, CCDS Phone: [phone] Admit Date: 04/01/2024 05:43:00 PM Patient Name: Kristel Harris Visit Number: [id number] Discharge Date: 04/07/2024 10:00:00 AM ATTENTION: The Clinical Documentation Specialists (CDI) and [facility] Coding Staff appreciate your assistance in clarifying documentation. Please respond to the clarification below the line at the bottom and electronically sign. The CDI & [facility] Coding staff will review the response and follow-up if needed. Please note: Queries are made part of the Legal Health Record. If you have any questions, please contact the author of this message via ITS. Dr. Xiao Subramanian The patient was receiving IV Norepinephrine. Please clarify what condition/diagnosis was being treated. History/Risk Factors: nonischemic cardiomyopathy ejection fraction 20 to 35% status post ICD placement, mild nonobstructive coronary artery disease, CKD stage IV, hypertension, hyperlipidemia, osteoarthritis and prior history of smoking. Presents to ER due to outpatient abnormal lab test. Clinical indicators: 04/06 Pulmonary consult: "Will transfer the patient to the intensive care unit. Will support the patient's blood pressure with pressors and the patient was started on Norepinephrine. 04/06 Cardiology: "His systolic blood pressure is around 80s. He is requiring low-dose of Norepinephrine. Patient was transferred to ICU because of worsening hemodynamics." 04/07 Pulmonary: "During this time, the patient has required pressors for hemodynamic support. Later on throughout the night, the patient developed ventricular tachycardia and subsequent ventricular fibrillation." 04/01-04/07 BP's: 87/55-101/67-80/46-73/54-73/58-73/41 04/01-04/07 HR: [id number] 04/01-04/06 Cr: 3.71-3.69-2.40-1.97 Treatment: IV Norepinephrine titrated 04/06-04/07; hemodialysis; ICU monitoring What diagnosis were you treating with IV Norepinephrine? [ ] Hypovolemic shock [x ] Cardiogenic shock [ ] No additional diagnosis [ ] Other, please specify [ ] Unable to determine MTDD
== END 2024-04-07 10:00 | disposition expired | DRG 673 ==
LOC: EC 14:51 → 3SCARD 17:43 → 2SICU 04-06 12:02
PROVIDERS: ADMIT Hospitalist; ATTEND Hospitalist
PROC: 5A1D70Z Performance of Urinary Filtration, Intermittent, Less than 6 Hours Per Day (ICD-10-PCS; 2024-04-03)
PROC: 0JH63XZ Insertion of Tunneled Vascular Access Device into Chest Subcutaneous Tissue and Fascia, Percutaneous Approach (ICD-10-PCS; principal; 2024-04-03 09:00)
PROC: 02HV33Z Insertion of Infusion Device into Superior Vena Cava, Percutaneous Approach (ICD-10-PCS; 2024-04-03 09:00)
PROC: 30233N1 Transfusion of Nonautologous Red Blood Cells into Peripheral Vein, Percutaneous Approach (ICD-10-PCS; 2024-04-05)
PROC: 5A12012 Performance of Cardiac Output, Single, Manual (ICD-10-PCS; 2024-04-07)
PROC: 5A2204Z Restoration of Cardiac Rhythm, Single (ICD-10-PCS; 2024-04-07)
DX: N17.0 Acute kidney failure with tubular necrosis (principal); I50.23 Acute on chronic systolic (congestive) heart failure; I13.2 Hypertensive heart and chronic kidney disease with heart failure and with stage 5 chronic kidney disease, or end stage renal disease; I42.8 Other cardiomyopathies; I48.19 Other persistent atrial fibrillation; I47.20 Ventricular tachycardia, unspecified; T83.511A Infection and inflammatory reaction due to indwelling urethral catheter, initial encounter; E87.1 Hypo-osmolality and hyponatremia; N39.0 Urinary tract infection, site not specified; G93.49 Other encephalopathy; I95.3 Hypotension of hemodialysis; I27.22 Pulmonary hypertension due to left heart disease; R62.7 Adult failure to thrive; D63.1 Anemia in chronic kidney disease; J44.9 Chronic obstructive pulmonary disease, unspecified; N18.6 End stage renal disease; E03.9 Hypothyroidism, unspecified; I49.01 Ventricular fibrillation; Z66 Do not resuscitate; Z51.5 Encounter for palliative care; I25.10 Atherosclerotic heart disease of native coronary artery without angina pectoris; I08.3 Combined rheumatic disorders of mitral, aortic and tricuspid valves; R57.0 Cardiogenic shock; E78.5 Hyperlipidemia, unspecified; R33.8 Other retention of urine; B95.2 Enterococcus as the cause of diseases classified elsewhere; Y84.6 Urinary catheterization as the cause of abnormal reaction of the patient, or of later complication, without mention of misadventure at the time of the procedure; Z96.642 Presence of left artificial hip joint; Z95.810 Presence of automatic (implantable) cardiac defibrillator; Z79.01 Long term (current) use of anticoagulants; Z87.891 Personal history of nicotine dependence; Z79.84 Long term (current) use of oral hypoglycemic drugs; Z79.890 Hormone replacement therapy; Z79.899 Other long term (current) drug therapy; Z79.51 Long term (current) use of inhaled steroids; Z88.8 Allergy status to other drugs, medicaments and biological substances
CPT/HCPCS: 36415; 36430; 36558; 71046; 76937; 77001; 80048; 80053; 83605; 83735; 84100; 84439; 84443; 84450; 84460; 84481; 84484; 85025; 85027; 85610; 85730; 86704; 86706; 86850; 86900; 86901; 86920; 87040; 87077; 87086; 87186; 87340; 90935; 92950; 93005; 94760; 96374; 99285